=== PATIENT | male | born 1980 | race Caucasian/White ===

== ENCOUNTER 2021-09-08 09:04 | Emergency (ER) | payer OTHER, SELFPAY ==
[2021-09-08 09:06] VITALS: BP 129/81; PULSE 93; RESP 20; TEMP 37.4; O2SAT 97; BMI 27.3
--- NOTE | 2021-09-08 09:33 | EX.ED.DYSGE1 ---
HPI History of Present Illness Chief Complaint: Fever Informant: patient Onset/Context/Timing Onset: Days Context: Gradual Onset Current Severity: Mild Maximum Severity: Moderate Narrative Narrative: Patient presents due to concern for difficult to control fever. He developed symptoms of Covid 7 days ago and tested positive for days ago. He reports minimal cough and respiratory symptoms. He does complain of body aches. He developed diarrhea this morning. He reports taking something for fever every 4 hours but in spite of that his temperature this morning was 103. He did take ibuprofen prior to arrival and here his temperature is 99.3. Patient states overall he feels better now that his fever is controlled. He is not currently on steroids and was not offered monoclonal antibody treatment by his testing center. [facility] Medical History no medical history no medical history Allergy/AdvReac Type Severity Reaction Status Date / Time No Known Allergies Allergy Verified 09/08/21 09:06 Social History (Updated 09/08/21 @ 09:[address] Kylah Bejarano MD) Smoking Status: Never smoker ROS ROS ED Constitutional Constitutional ED: Reports fever(s); Denies chills Eyes Eyes: Denies change in vision ENT ENT ED: Denies sore throat Cardiovascular Cardiovascular: Denies chest pain Respiratory/Chest Respiratory/Chest: Reports cough; Denies dyspnea Gastrointestinal Gastrointestinal: Reports diarrhea and nausea; Denies abdominal pain or vomiting Genitourinary Genitourinary ED: Denies dysuria Musculoskeletal Musculoskeletal: Reports myalgias; Denies back pain Integumentary Denies rash Neurologic Neurologic: Denies headache(s) or weakness Allergic/Immunologic Allergic/Immunologic ED: Denies urticaria EXAM Physical Exam Const Vital Signs: 09/08/21 09:06 Temperature 99.3 F H Temperature Source Oral Pulse Rate 93 Respiratory Rate 20 H Blood Pressure 129/81 H Blood Pressure Mean 97 Pulse Ox 97 Oxygen Delivery Method Room Air Positive well nourished and well developed General Appearance ED: well developed Eyes PERRL and EOMs intact bilaterally Neck supple Chest Wall inspection of chest normal and palpation of chest normal Resp normal respiratory effort and clear to auscultation bilaterally Cardio regular rate and regular rhythm GI normal to inspection, nondistended, normoactive bowel sounds and non-tender Palpation: soft Extremity normal to inspection Neuro oriented x3 Sensorium / Orientation: alert Psych mental status grossly normal Skin no rashes or lesions noted MDM MDM MDM Narrative Medical decision making narrative: At this time patient has no significant respiratory symptoms. I do not feel x-ray will change our treatment. Patient does qualify for monoclonal antibody treatment. We discussed this and I will make the referral for him. We discussed appropriate fever control including alternating Tylenol and ibuprofen every 3 hours. Discharge Plan Triage Chief Complaint: Fever ED Provider: Kylah Bejarano Dx/Rx/DC Orders Clinical Impression: COVID-19 Instructions: Coronavirus Disease 2019 (COVID-19): Overview, Coronavirus Disease 2019 (COVID-19): Caring for Yourself or Others, ED Fever Control (Adult) Other Ambulatory Orders: COVID Outpatient Monoclonal Antibody Referral (Routine) Timeframe: 1 Day Facility: [facility] - Location: [facility] Ordered By: Dr. Kylah Bejarano Primary Care Provider: Care Physician,No Primary Referrals: Diana Qureshi MD [STAFF PHYSICIAN] - 1-2 Weeks Care Physician,No Primary [Primary Care Provider] - Disposition Disposition: Home, Self Care
== END 2021-09-08 10:20 | disposition home or self-care (01) ==
LOC: ED 09:57
PROVIDERS: Emergency Provider Emergency Medicine; PCP Family Medicine
DX: U07.1 COVID-19 (principal); R19.7 Diarrhea, unspecified
CPT/HCPCS: 99282

== ENCOUNTER 2021-09-10 20:17 | Emergency (ER) | payer OTHER, SELFPAY ==
[2021-09-10 20:17] VITALS: BP 110/66; PULSE 97; RESP 28; TEMP 38.8; O2SAT 91; BMI 27.0
--- NOTE | 2021-09-10 20:25 | EKG12_ITS ---
Test Reason : SOB Blood Pressure : / mmHG Vent. Rate : 089 BPM Atrial Rate : 089 BPM P-R Int : 146 ms QRS Dur : 080 ms QT Int : 356 ms P-R-T Axes : 054 061 023 degrees QTc Int : 433 ms Normal sinus rhythm Nonspecific ST abnormality Abnormal ECG Confirmed by TAMIA PRIEST ([id number]), medical transcription editor JASPREET HENDERSON ([id number]) on 09/11/2021 11:11:20 AM Referred By: AUSTIN Confirmed By:TAMIA PRIEST
--- NOTE | 2021-09-10 20:41 | CT_ITS ---
STUDY: CTA CHEST REASON FOR EXAM: Male, 41 years old. Chest pain RADIATION DOSAGE (If Supplied By Facility): CTDIvol = ( 15.52 ) mGy, DLP = ( 520.22 ) mGycm TECHNIQUE: The examination was performed with the intravenous administration of IV 100mL Isovue-370. Post-processing of the angiographic images was performed, with multiplanar reformation and 3D reconstruction. Individualized dose optimization techniques were used for this CT. COMPARISON: None. FINDINGS: CTA: PULMONARY ARTERIES: There is normal configuration and contrast opacification of pulmonary outflow tract, main pulmonary arteries, segmental and intersegmental pulmonary arteries bilaterally without evidence of intraluminal filling defects. AORTIC ARCH: The aortic arch and descending aorta have normal configuration. No evidence of dissection or aneurysmal dilatation. HEART: Cardiac contour is normal. No evidence pericardial effusion. CT CHEST: LUNGS: [Extensive diffuse interstitial and hazy parenchymal infiltrate in the periphery of the lungs greatest at the lung bases however extending bilaterally to the lung apices. No effusion.. No mass. No consolidation. PLEURAL SPACES: Unremarkable, no effusion or pneumothorax.. MEDIASTINUM AND LYMPH NODES: Mildly prominent lymph nodes are present, largest in the RIGHT hilum measures approximately 2.0 x 1.8 cm in size. Pretracheal node measures approximately 1.4 x 1.1 cm.. BONES: Unremarkable ABDOMEN: Within normal limits. Other: None IMPRESSIONS: 1. No CTA evidence of pulmonary embolism. 2. No CTA evidence of aortic aneurysm or dissection 3. Normal CT appearance of the heart and pericardium. 4. Extensive bilateral multilobar infiltrate/pneumonia. Pattern is frequently seen in the setting of COVID pneumonia and atypical viral pneumonias. No effusion. Mild reactive adenopathy in the mediastinum and RIGHT hilar region. Electronically Signed: Chidi Seals MD at 21:58 EST Tel , Service support , CT/CTA Chest W/WO Contrast
--- NOTE | 2021-09-10 20:42 | ED.VIS.DYS ---
HPI History of Present Illness Chief Complaint: Shortness of Breath Narrative Narrative: 41-year-old male presenting with Covid symptoms on day 9. He states he currently has continued fevers and shortness of breath. He also admits to some retrosternal chest pain. Patient does have body aches and chills. Patient states his lowest pulse ox at home has been 89. Here he ambulated from the front to his room and maintain a sat of 90. He states he has nausea but is not vomiting. He complains of some diarrhea. He does have decreased p.o. intake. He states he gets up to walk a couple of times a day. He was not vaccinated. PFSH PFSH Home Medications NK 09/08/21 [History Last Taken Unknown] benzonatate 100 mg PO TID PRN #20 cap 09/10/21 [Rx Last Taken Unknown] ondansetron 4 mg PO Q8H PRN PRN #20 tab 09/10/21 [Rx Last Taken Unknown] Allergy/AdvReac Type Severity Reaction Status Date / Time No Known Allergies Allergy Verified 09/08/21 09:06 Social History Smoking Status: Never smoker ROS ROS ED Constitutional Constitutional ED: Reports chills and fever(s) Eyes Eyes: Denies blurry vision or diplopia ENT ENT ED: Denies rhinorrhea or sore throat Cardiovascular Cardiovascular: Reports chest pain Respiratory/Chest Respiratory/Chest: Reports cough, dyspnea and dyspnea on exertion Gastrointestinal Gastrointestinal: Reports diarrhea and nausea; Denies abdominal pain Genitourinary Genitourinary ED: Denies dysuria or hematuria Musculoskeletal Musculoskeletal: Reports myalgias; Denies arthralgias or neck pain Integumentary Denies Abrasions or rash Neurologic Neurologic: Reports headache(s); Denies paresthesias EXAM Physical Exam Const Vital Signs: 09/10/21 20:17 09/10/21 20:43 09/10/21 21:16 Temperature 101.8 F H 100.9 F H Temperature Source Oral Oral Pulse Rate 97 89 Respiratory Rate 28 H 26 H Respiratory Effort Short of Breath Blood Pressure 110/66 105/62 Blood Pressure Mean 80 76 Pulse Ox 91 94 Oxygen Delivery Method Room Air Room Air Room Air 09/10/21 21:38 09/10/21 22:16 Temperature Temperature Source Pulse Rate 87 82 Respiratory Rate 20 H 18 Respiratory Effort Blood Pressure 92/45 L 108/62 Blood Pressure Mean 60 77 Pulse Ox 94 93 Oxygen Delivery Method Room Air Room Air Positive well nourished General Appearance ED: NAD; Negative for pallor HEENT Reports dry mucous membranes atraumatic Mouth ED: Yes dry mucous membranes Mouth: dry mucous membranes Eyes PERRL and EOMs intact bilaterally Resp normal respiratory effort Auscultation: Negative for wheezes Cardio regular rate and regular rhythm GI non-tender and non-distended Palpation: soft Neuro oriented x3 and CN's II-XII intact bilaterally Sensorium / Orientation: alert Motor Exam: strength 5/5 throughout Psych mental status grossly normal Thought Process: normal thought process Skin General Skin Exam: Negative for jaundice or pallor Rashes: no rashes MDM MDM MDM Narrative Medical decision making narrative: Patient continued to have fevers and shortness of breath as well as some chest pain . His EKG on my interpretation showed a sinus rhythm with ventricular enlargement without sign of ischemic change. Chest x-ray my interpretation is bilateral pulmonary infiltrates consistent with COVID-19. Radiologist agree. CBC shows no leukocytosis and hemoglobin hematocrit are stable. Patient is lymphopenic. Renal function electrolytes are normal. Troponin is negative patient has a slight bump in his bilirubin at 1.4 his AST is 41. I did obtain a CTA of the chest which does show COVID-19 pneumonitis however there are no PEs or dissection visible. The patient was not hypoxic on ambulation and only madonna 91. He does come immediately back up to 93-94. While I was discussing his results with him he was 95% on room air. His respiratory rate is 18. Given this I do not believe he needs to be hospitalized and he does not qualify for home oxygen. Patient already declined the monoclonal antibodies. I will provide him with [facility] for home. He is to continue to monitor his oxygen levels and return for any new or concerning symptoms. Impression: 1. COVID-19 pneumonitis 2. Chest pain Lab Data Labs: Laboratory Results - last 24 hr 09/10/21 09/10/21 20:51 20:51 WBC 5.6 RBC 5.14 Hgb 14.8 Hct 42.9 MCV 83.5 MCH 28.8 MCHC 34.5 RDW Std Deviation 36.6 RDW Coeff of Khadijah 12.0 Plt Count 142 L MPV 10.4 Immature Gran % (Auto) 1.100 H Neut % (Auto) 78.8 H Lymph % (Auto) 11.9 L Monroe % (Auto) 7.8 Eos % (Auto) 0.0 Baso % (Auto) 0.4 Absolute Neuts (auto) 4.4 Absolute Lymphs (auto) 0.67 L Nucleated RBC % 0 Sodium 133 L Potassium 3.6 Chloride 100 Carbon Dioxide 26.0 Anion Gap 7 BUN 16 Creatinine 1.19 Estim Creat Clear Calc 97.64 Est GFR (MDRD) Af Amer 87 Est GFR (MDRD) Non-Af 72 BUN/Creatinine Ratio 13.4 Glucose 128 H Calcium 7.8 L Total Bilirubin 1.40 H AST 41 H ALT 34 Alkaline Phosphatase 53 Troponin I High Sens 10 Total Protein 6.7 Albumin 3.0 L Globulin 3.7 Albumin/Globulin Ratio 0.8 L Radiography Diagnostic Testing: Clinical Impression(s) from Imaging Studies Chest CTA 09/10/21 20:41 Chest X-Ray 09/10/21 20:55 IMPRESSION: Findings consistent with bilateral peripheral multifocal infiltrates with underlying viral etiology not excluded, clinically correlate. Electronically Signed: Lucian Sarmiento DO at 21:20 EST , Service support , Discharge Plan Triage Chief Complaint: Shortness of Breath ED Provider: Waqar York Dx/Rx/DC Orders Instructions: Coronavirus Disease 2019 (COVID-19): Caring for Yourself or Others Prescriptions: New ondansetron 4 mg tablet,disintegrating 4 mg PO Q8H PRN PRN (Reason: Nausea) Qty: 20 RF: 0 benzonatate 100 mg capsule 100 mg PO TID PRN (Reason: cough) Qty: 20 RF: 0 No Action NK RF: 0 Primary Care Provider: Care Physician,No Primary Referrals: Dee Hussein MD [STAFF PHYSICIAN] - 3-5 Days Care Physician,No Primary [Primary Care Provider] - Disposition Disposition: Home, Self Care
[2021-09-10 20:43] VITALS: O2SAT 94
--- NOTE | 2021-09-10 20:55 | RAD_ITS ---
STUDY: X-RAY CHEST REASON FOR EXAM: Male, 41 years old. cough TECHNIQUE: Single AP portable view of the chest. COMPARISON: None. FINDINGS: Bilateral peripheral patchy airspace disease extending to the lung bases is present. There is no demonstrated pleural abnormality. Normal size heart. Normal mediastinum and lucie. Normal visualized pulmonary arteries. Normal visualized aortic arch and descending thoracic aorta. Normal visualized thoracic spine. Normal visualized ribs, clavicles, and shoulders. There is no demonstrated abnormality of the visualized soft tissue structures of the upper abdomen. RAD/Chest 1 View (Portable) IMPRESSION: Findings consistent with bilateral peripheral multifocal infiltrates with underlying viral etiology not excluded, clinically correlate. Electronically Signed: Lucian Sarmiento DO at 21:20 EST , Service support ,
[2021-09-10 21:03] LABS: Absolute Lymphocyte Count 0.67 X10^3/uL (0.83-4.51); Absolute Neutrophil Count 4.4 X10^3/uL (2.0-7.7); Basophil# 0.02 X10^3/uL; Basophil% 0.4 % (0-1); Hematocrit 42.9 % (40-54); Hemoglobin 14.8 g/dL (13.0-16.5); Lymphocyte # 0.67 X10^3/ul (0.83-4.51); Lymphocyte % 11.9 % (19-41); Mean Corp Hgb Conc 34.5 g/dL (32-36); Mean Corpuscular Hgb 28.8 pg (27.0-32.0); Mean Corpuscular Volume 83.5 fL (80-94); Mean Platelet Vol. 10.4 fl (6.2-12.0); Monocyte# 0.44 X10^3/uL; Monocyte% 7.8 % (0-10); NRBC Flagged by Analyzer 0 % (0-5); Neutrophil # 4.44 X10^3/uL (2.7-7.7); Neutrophil % 78.8 % (47-70); Platelet Count 142 K/mm3 (150-450); RBC Distribution Width SD 36.6 fl (35.1-43.9); Red Blood Count 5.14 M/mm3 (4.6-6.2); White Blood Count 5.6 K/mm3 (4.4-11.0)
[2021-09-10] MEDS: Ondansetron 4 MG/2 ML Vial IV (21:09)
[2021-09-10] MEDS: Ketorolac 15 MG/ML Vial IV (21:10)
[2021-09-10] MEDS: Morphine 4 MG/ML Syringe IV (21:11)
[2021-09-10 21:16] VITALS: BP 105/62; PULSE 89; RESP 26; TEMP 38.3; O2SAT 94
[2021-09-10 21:22] LABS: ALB/GLOB Ratio 0.8 RATIO (0.9-2.4); AST(SGOT) 41 U/L (15-37); Alanine Aminotransfer ALT/SGPT 34 U/L (16-61); Alkaline Phosphatase 53 U/L (45-117); Anion Gap 7 (5-15); BUN 16 mg/dL (7-18); BUN/Creat Ratio 13.4 RATIO (10-20); Calcium,Total 7.8 mg/dL (8.5-10.1); Chloride 100 mmol/L (98-107); Creatinine, Serum 1.19 mg/dL (0.70-1.30); EST Glomerular Filtration Rate 72 mL/min (>60); Est Glom Filt Rate - Afr Amer 87 mL/min (>60); Estimated Creatinine Clearance 97.64 ml/min; Globulin 3.7 g/dL (2.2-4.2); Glucose 128 mg/dL (74-106); Potassium 3.6 mmol/L (3.5-5.1); Protein, Total 6.7 g/dL (6.4-8.2); Sodium Level 133 mmol/L (136-145); Troponin-I HS 10 pg/mL (3.0-78.0)
[2021-09-10 21:38] VITALS: BP 92/45; PULSE 87; RESP 20; O2SAT 94
[2021-09-10 22:16] VITALS: BP 108/62; PULSE 82; RESP 18; O2SAT 93
[2021-09-10 23:25] VITALS: BP 106/59; PULSE 83; RESP 16; O2SAT 97
[2021-09-10] MEDS: Benzonatate 100 MG Capsule PO (23:28)
[2021-09-10] MEDS: Albuterol Sulfate 8 gm Inhaler (60 puffs) 1 PUFF INHALATION (23:31)
== END 2021-09-10 23:31 | disposition home or self-care (01) ==
PROVIDERS: Emergency Provider Student in an Organized Health Care Education/Training Program
DX: U07.1 COVID-19 (principal); J12.82 Pneumonia due to coronavirus disease 2019; R19.7 Diarrhea, unspecified
CPT/HCPCS: 36415; 71045; 71275; 80053; 84484; 85025; 93005; 94664; 96361; 96374; 96375; 99283; J7040; Q9967; A4216; J2405

== ENCOUNTER 2021-09-11 12:07 | Outpatient (CLI) | payer OTHER, SELFPAY ==
[2021-09-11] MEDS: 0.9% Saline Lock 10 ML Syringe IV (12:33)
[2021-09-11 12:34] VITALS: BP 106/65; PULSE 78; RESP 18; TEMP 36.6; O2SAT 95; BMI 27.5
[2021-09-11 13:20] VITALS: BP 105/53; PULSE 69; RESP 16; TEMP 36.6; O2SAT 96
[2021-09-11 14:01] VITALS: BP 102/77; PULSE 77; RESP 16; TEMP 36.6; O2SAT 96
== END 2021-09-11 14:20 | disposition home or self-care (01) ==
LOC: MS3OUT 12:07 → MS3 12:08
PROVIDERS: Referring Provider Nurse Practitioner Adult Health; Visit Provider Nurse Practitioner Adult Health
DX: Z23 Encounter for immunization (principal); U07.1 COVID-19
CPT/HCPCS: J7050; M0245; Q0245; A4216

== ENCOUNTER → 2023-12-16 | Outpatient (CLI) | payer BC, SELFPAY ==
--- NOTE | 2023-12-16 15:45 | RAD_ITS ---
INDICATION: IBS EXAMINATION/TECHNIQUE: X-RAY - XR Abdomen W/ Decub and/or Erect Views COMPARISON: None FINDINGS: BOWEL GAS PATTERN: Non-obstructive. No bowel or stomach distention. FREE AIR: Not assessed on a single supine view. ORGANOMEGALY: Not seen. CALCIFICATIONS: No abnormal calcifications observed. LOWER CHEST: No acute pathology. BONES AND SOFT TISSUES: No acute pathology. RAD/Abd Inc Decub and/or Erect IMPRESSION: Non-obstructive bowel gas pattern. Electronically Signed: Teto Niño MD at 16:32 EST ,
[2023-12-16 18:00] LABS: Absolute Lymphocyte Count 1.95 X10^3/uL (0.83-4.51); Absolute Neutrophil Count 6.5 X10^3/uL (2.0-7.7); Basophil# 0.08 X10^3/uL; Basophil% 0.8 % (0-1); Eosinophil# 0.57 X10^3/uL; Eosinophils% 5.7 % (0-5); Hematocrit 47.2 % (40-54); Hemoglobin 15.4 g/dL (13.0-16.5); Lymphocyte # 1.95 X10^3/ul (0.83-4.51); Lymphocyte % 19.5 % (19-41); Mean Corp Hgb Conc 32.6 g/dL (32-36); Mean Corpuscular Volume 85.8 fL (80-94); Mean Platelet Vol. 10.7 fl (6.2-12.0); Monocyte# 0.86 X10^3/uL; Monocyte% 8.6 % (0-10); NRBC Flagged by Analyzer 0 % (0-5); Neutrophil # 6.52 X10^3/uL (2.7-7.7); Platelet Count 312 K/mm3 (150-450); RBC Distribution Width SD 37.7 fl (35.1-43.9)
[2023-12-16 18:13] LABS: Erythrocyte Sedimentation Rate 8 mm/hr (0-20)
--- OUTSIDE RECORDS SUMMARY | 2023-12-16 18:21 | XMS RPT_ITS | CCD ---
Author Name Unknown Address [address] [place] [address] Organization [facility] Care Team Providers Care Crm System Administrator Name Role Phone Diana Qureshi Unavailable Dr. Harper Saleh Attending Nicole Saleh, Dr. Harper Yeager Referring Dr. Diana Miller Primary Care Unavail able Dr. Harper Saleh Admitting Nicole martinez Medications Completed/Discontinued Medications Medication Drug Class(es) Dates Sig (Normalized) Sig (Original) No Reported Medications (3 sources) No Reported Medi cations Quantity: 0 Refills: 0 Ordered: 20-Apr-2022 DO Active Problems Problem Classification Problem Date Documented Da te Episodic/Chronic Abdominal hernia (7 sources) Inguinal hernia; Translations: [Inguinal hernia, without mention of obstruction or gangrene, unilateral or unspecified (not specified as recurrent)] Onset: 05-03-2022 Episodic Other and unspecified benign neoplasm (1 source) Benign lipomatous neoplasm of spermatic cord; Translations: [Benign lipomatous neoplasm of spermatic cord] Onset: 05-03-2022 Episodic Results Test Name Value Interpretation Reference Range Facil ity Vital Signs Date Time Vital Sign Value Performing Clinician Deborah obregon 05-15-2022 15:31-0400 Body height 190.5 cm Diana Qureshi Work Phone: [facility] Work Phone: 05-15-2022 15:31-0400 Body mass index (BMI) [Ratio] 28.06 kg/m2 Diana Qureshi Work Phone: [facility] Work Phone: 05-15-2022 15:31-0400 Body surface area Derived from formula 2.3 m2 Diana Vasquesiff Work Phone: [facility] Work Phone: 05-15-2022 15:31-0400 Body weight 101.83 kg Diana S Jolliff Work Phone: [facility] Work Phone: 05-15-2022 15:31-0400 Diastolic blood pressure 92 mm[Hg] Diana S Jolliff Work Phone: [facility] Work Phone: 05-15-2022 15:31-0400 Heart rate 80 /min Diana S Jolliff Work Phone: [facility] Work Phone: 05-15-2022 15:31-0400 Systolic blood pressure 134 mm[Hg] Diana S Jolliff Work Phone: [facility] Work Phone: 04-20-2022 15:29-0400 Body height 190.5 cm Diana S Jolliff Work Phone: [facility] Work Phone: 04-20-2022 15:29-0400 Body mass index (BMI) [Ratio] 28.06 kg/m2 Diana S Jolliff Work Phone: [facility] Work Phone: 04-20-2022 15:29-0400 Body surface area Derived from formula 2.3 m2 Diana S Jolliff Work Phone: [facility] Work Phone: 04-20-2022 15:29-0400 Body weight 101.83 kg Diana S Jolliff Work Phone: [facility] Work Phone: 04-20-2022 15:29-0400 Diastolic blood pressure 94 mm[Hg] Diana S Jolliff Work Phone: [facility] Work Phone: 04-20-2022 15:29-0400 Heart rate 80 /min Diana Qureshi Work Phone: [facility] Work Phone: 04-20-2022 15:29-0400 Systolic blood pressure 132 mm[Hg] Diaan Vasquesiff Work Phone: [facility] Work Phone: Encounters Encounter Date Encounter Type Care Provider Facility Start: 05-15-2022 Postop follow up vis it related to original px Diana Vasquesiff Work Phone: [facility] Work Phone: Start: 05-03-2022 End: 05-03-[address] Harper Saleh Facility:[id number] Start: 05-03-2022 [facility], Provider: Harper Saleh, Status: Pen, Time: 9:30 AM Diana Qureshi Work Phone: [facility] Work Phone: Start: 05-03-2022 Chart Update Diana Vasquesiff Work Phone: [facility] Work Phone: Start: 04-20-2022 Office outpatient ne w 45 minutes Diana Qureshi Work Phone: [facility] Work Phone: Procedures Date Procedure Procedure Detail Performing Clinician Start: 05-03-2022 Repair of inguinal hernia Diana Vasquesiff Work Phone: Payers Date Payer Category Payer Unknown [id number] Unknown [facility] Unknown [id number] Social History Date Type Detail Facility Non-smoker Non-smoker [facility] Work Phone: Clinical Note 05-03-2022 Note Date & Type Note Facility 05-03-2022 Note PROCEDURE DETAILS Preoperative Diagnosis: Unil inguinal hernia, w/o obst or gangr, not spcf as recur, K40.90 Postoperative Diagnosis: Unil inguinal hernia, w/o obst or gangr, not spcf as recur, K40.90 Surgeon: Harper Saleh Resident/Fellow/Other Guidance Secretary: None of these were associated with this case Procedure: 1. L INGUINAL HERNIA REPAIR, WITH MESH Anesthesia: Memo Lobo Estimated Blood Loss: minimal Findings: indirect IH lipoma Specimens(s) Collected: yes, hernia sac and lipoma Complications: none Operative Report: Patient was seen for symptomatic left inguinal hernia. After discussing the alternatives of observation versus repair, he wished to have it repaired. We discussed the alternatives of laparoscopic versus an open anterior approach. After discussion, he opted for an open anterior repair. We discussed the procedure risks and potential complications including but not limited to bleeding, infection, reaction to the anesthetic, stroke, PA and/or . We also discussed the fact mesh would be placed and there was a risk of hernia recurrence despite the mesh or mesh infection necessitating removal. We discussed the risk of postoperative pain syndromes, contralateral hernia formation or testicular loss. All questions were answered and he asked us to proceed. Patient was brought to the operating room and placed supine upon the operating room table. Operative huddle was done. After the uneventful administration of an LMA anesthetic, the abdomen was prepped and draped in usual sterile fashion. Timeout was done. SCD devices were in place. Left inguinal region was locally anesthetized with a ydcl-[id number]-[id number] solution of 0.25% Marcaine and 1% lidocaine. Inguinal incision was made and carried through the skin subcutaneous tissues and Sanjuana's fascia. A subfascial injection was also done. The external oblique was divided along the course of its fibers to the internal inguinal ring. Superior and inferior leaflets were raised and the cord mobilized at the pubic tubercle and placed on a Dakota drain. The cremasteric fibers were split and lipoma became apparent which was bilobed as well as a hernia sac. All were dissected back to the internal inguinal ring. The lipomas were clamped divided and tied with 3-0 Vicryl ties. The hernia sac was open no contents were noted the sac was twisted and a high ligation done using 2 sutures of 3-0 Vicryl. After checking for hemostasis these were allowed to retract into the retroperitoneum. A left-sided ProGrip mesh was then wrapped around the cord and sutured to the pubic tubercle using 2-0 Vicryl. Fingertip was admitted. The external oblique was closed with a running suture of 2-0 Vicryl. Subcutaneous tissues and Sanjuana's fascia were approximated using interrupted sutures of 3-0 Vicryl. The skin was closed with a running subcuticular stitch of 4-0 Monocryl. Dermabond Steri-Strips and sterile dressings were applied. Patient tolerated the procedure well and was sent to the recovery area in stable condition. All needle and sponge counts were correct. Attestation: Note Completion: Attending AttestationI performed the procedure without a resident Electronic Signatures: Harper Saleh) (Signed 03-May-2022 14:02) Authored: Post-Operative Note, Chart Review, Note Completion Last Updated: 03-May-2022 14:02 by Harper Saleh) [facility] Clinical Note 05-03-2022 Note Date & Type Note Facility 05-03-2022 Note History & Physical R eviewed: I have reviewed the History and Physical dated: 20-Apr-2022 History and Physical reviewed and relevant findings noted. Patient examined to review pertinent physical findings.: No significant changes Home Medications Reviewed: no changes noted Allergies Reviewed: no changes noted ERAS (Enhanced Recovery After Surgery): ERAS Patient: no Consent: COVID-19 Consent: COVID-19 Risk ConsentSurgeon has reviewed spears risks related to the risk of frankie COVID-19 and if they contract COVID-19 what the risks are. Electronic Signatures: Harper Saleh) (Signed 03-May-2022 12:22) Authored: History & Physical Reviewed, ERAS, Consent, Note Completion Last Updated: 03-May-2022 12:22 by Harper Saleh) [facility] History of Present illness Narrative 04-01-2022 Note Date & Type Note Facility 04-01-2022 History of Present illness Narrative Patient is seen for evaluation of left groin pain and bulge. He states approximately 3 weeks ago he felt something pop in his left groin and had discomfort. Over the last 5 days he has developed a bulge. It is reducible. [facility] Work Phone: History of Present illness Narrative Note Date & Type Note Facility History of Present illness Narrative Patient is seen in postop follow-up status post inguinal hernia repair. He states the bruising has essentially resolved and he still has some minor swelling. He states he really took no pain medicine. He is still limiting his activity. He states it feels better now than it did preop [facility] Work Phone: Chief Complaint Self ref left groin pain. Pt states he has a bulge in his groin. Bowels moving good.Post op #1 LIH. Denies fever, chills and nausea. Denies drainage or redness. Family History No Family History Records FoundUnknown Family Member Name Dates Details Family history of diabetes m ellitus: Mother, Father(V18.0, Z83.3) Status:Active Unknown Family Member Name Dates Details Family history of diabetes m ellitus: Mother, Father(V18.0, Z83.3) Status:Active Unknown Family Member Name Dates Details Family history of diabetes m ellitus: Mother, Father(V18.0, Z83.3) Status:Active Summary Purpose Advance Directives No Advanced Directives Records FoundNo Advanced Directives Records FoundNo Advanced Directives Records Found Additional Source Comments (unrecognized sect ion and content) No Status Records FoundNo Status Records FoundNo Status Records Found INFORMATION SOURCE (unrecogn ized section and content) DATE CREATED AUTHOR AUTHOR'S ORGANIZ ATION 05/18/2022 [employer] DATE CREATED AUTHOR AUTHOR'S ORGANIZ ATION 01/20/2023 [facility] FOR RECORDS PERTAINING TO PATIENTS WHO ARE OR HAVE BEEN ENROLLED IN A CHEMICAL DEPENDENCY/SUBSTANCEABUSE PROGRAM, SOME INFORMATION MAY BE OMITTED. This clinical summary was aggregated from multiple sources. Caution should be exercised in using it in the provision of clinical care. This summary normalizes information from multiple sources, and as a consequence, information in this document may materially change the coding, format and clinical context of patient data. In addition, data may be omitted in some cases. CLINICAL DECISIONS SHOULD BE BASED ON THE PRIMARY CLINICAL RECORDS. [facility] [employer] [facility]. provides no warranty or guarantee of the accuracy or completeness of information in this document.
[2023-12-16 18:28] LABS: ALB/GLOB Ratio 1.2 RATIO (0.9-2.4); AST(SGOT) 19 U/L (15-37); Alanine Aminotransfer ALT/SGPT 36 U/L (16-61); Albumin, Serum 3.9 g/dL (3.2-5.0); Alkaline Phosphatase 76 U/L (45-117); Anion Gap 2 (5-15); BUN 21 mg/dL (7-18); BUN/Creat Ratio 18.8 RATIO (10-20); Calcium,Total 9.2 mg/dL (8.5-10.1); Chloride 107 mmol/L (98-107); Creatinine, Serum 1.12 mg/dL (0.70-1.30); EST Glomerular Filtration Rate 76 mL/min (>60); Est Glom Filt Rate - Afr Amer 92 mL/min (>60); Globulin 3.3 g/dL (2.2-4.2); Glucose 99 mg/dL (74-106); Potassium 4.2 mmol/L (3.5-5.1); Protein, Total 7.2 g/dL (6.4-8.2); Sodium Level 139 mmol/L (136-145); Thyroid Stim Hormone (TSH) 0.66 uIU/mL (0.358-3.74)
[2023-12-18 16:10] LABS: Deamidated Gliadin IgA 11 units (0-19); Deamidated Gliadin IgG 5 units (0-19); Endomysial Antibody IgA Negative (Negative); Immunoglobulin A 193 mg/dL (90-386); t-Transglutaminase IgA <2 U/mL (0-3)
== END | disposition home or self-care (01) ==
PROVIDERS: PCP Family Medicine; Referring Provider Family Medicine; Visit Provider Family Medicine
DX: K58.9 Irritable bowel syndrome, unspecified (principal)
CPT/HCPCS: 36415; 74019; 80053; 82784; 83516; 84443; 85025; 85652; 86255

== ENCOUNTER → 2023-12-18 | Outpatient (CLI) | payer BC, SELFPAY ==
--- OUTSIDE RECORDS SUMMARY | 2023-12-18 19:36 | XMS RPT_ITS | CCD ---
Author Name Unknown Address [address] [place] [address] Organization [facility] Care Team Providers Care Clinical Sciences Professor Name Role Phone Diana Qureshi Unavailable Dr. [...] height 190.5 cm Diana Qureshi Work Phone: [facility] Work Phone: 05-15-2022 15:31-0400 Body mass index (BMI) [Ratio] 28.06 kg/m2 Diana Qureshi Work Phone: [facility] Work Phone: 05-15-2022 15:31-0400 Body surface area Derived from formula 2.3 m2 Diana Vasquesiff Work Phone: [facility] Work Phone: 05-15-2022 15:31-0400 Body weight 101.83 kg Diana S Jolliff Work Phone: [facility] Work Phone: 05-15-2022 15:31-0400 Diastolic blood pressure 92 mm[Hg] Diana S Jolliff Work Phone: [facility] Work Phone: 05-15-2022 15:31-0400 Heart rate 80 /min Diana S Jolliff Work Phone: [facility] Work Phone: 05-15-2022 15:31-0400 Systolic blood pressure 134 mm[Hg] Diana S Jolliff Work Phone: [facility] Work Phone: 04-20-2022 15:29-0400 Body height 190.5 cm Diana S Jolliff Work Phone: [facility] Work Phone: 04-20-2022 15:29-0400 Body mass index (BMI) [Ratio] 28.06 kg/m2 Diana S Jolliff Work Phone: [facility] Work Phone: 04-20-2022 15:29-0400 Body surface area Derived from formula 2.3 m2 Diana S Jolliff Work Phone: [facility] Work Phone: 04-20-2022 15:29-0400 Body weight 101.83 kg Diana S Jolliff Work Phone: [facility] Work Phone: 04-20-2022 15:29-0400 Diastolic blood pressure 94 mm[Hg] Diana S Jolliff Work Phone: [facility] Work Phone: 04-20-2022 15:29-0400 Heart rate 80 /min Diana Qureshi Work Phone: [facility] Work Phone: 04-20-2022 15:29-0400 Systolic blood pressure 132 mm[Hg] Diana Vasquesiff Work Phone: [facility] Work Phone: Encounters Encounter Date Encounter Type Care Provider Facility Start: 05-15-2022 Postop follow up vis it related to original px Diana Vasquesiff Work Phone: [facility] Work Phone: Start: 05-03-2022 End: 05-03-[address] Harper Saleh Facility:[id number] Start: 05-03-2022 [facility], Provider: Harper Saleh, Status: Pen, Time: 9:30 AM Diana Qureshi Work Phone: [facility] Work Phone: Start: 05-03-2022 Chart Update Diana Vasquesiff Work Phone: [facility] Work Phone: Start: 04-20-2022 Office outpatient ne w 45 minutes Diana Qureshi Work Phone: [facility] Work Phone: Procedures Date Procedure Procedure Detail Performing Clinician Start: 05-03-2022 Repair of inguinal hernia Diana Vasquesiff Work Phone: Payers Date Payer Category Payer Unknown [id number] Unknown [facility] Unknown [id number] Social History Date Type Detail Facility Non-smoker Non-smoker [facility] Work Phone: Clinical Note 05-03-2022 Note Date & Type Note Facility 05-03-2022 Note PROCEDURE DETAILS Preoperative Diagnosis: Unil inguinal hernia, w/o obst or gangr, not spcf as recur, K40.90 Postoperative Diagnosis: Unil inguinal hernia, w/o obst or gangr, not spcf as recur, K40.90 Surgeon: Harper Saleh Resident/Fellow/Other Sandwich Machine Operator: None of these were associated with this [...] bleeding, infection, reaction to the anesthetic, stroke, [place] and/or . We also discussed the fact [...] inguinal region was locally anesthetized with a joon-pnb-ztis solution of 0.25% Marcaine and 1% lidocaine. [...] Last Updated: 03-May-2022 14:02 by Harper Saleh) [facility] Clinical Note 05-03-2022 Note Date & Type [...] Last Updated: 03-May-2022 12:22 by Harper Saleh) [facility] History of Present illness Narrative 04-01-2022 Note Date & Type Note Facility 04-01-2022 History of Present illness Narrative Patient is seen for evaluation of left groin pain and bulge. He states approximately 3 weeks ago he felt something pop in his left groin and had discomfort. Over the last 5 days he has developed a bulge. It is reducible. -[facility] Work Phone: History of Present illness Narrative [...] feels better now than it did preop [facility] Work Phone: Chief Complaint [...] DATE CREATED AUTHOR AUTHOR'S ORGANIZ ATION 05/18/2022 [employer] DATE CREATED AUTHOR AUTHOR'S ORGANIZ ATION 01/20/2023 [facility] FOR RECORDS PERTAINING TO PATIENTS WHO ARE [...] BE BASED ON THE PRIMARY CLINICAL RECORDS. [facility] [employer] [facility]. provides no warranty or guarantee of the accuracy or completeness of information in this document.
[2023-12-24 21:07] LABS: Pancreatic Elastase, Fecal 228 (>200)
== END | disposition home or self-care (01) ==
LOC: LABSPEC 15:38
PROVIDERS: PCP Family Medicine; Referring Provider Family Medicine; Visit Provider Family Medicine
DX: K58.9 Irritable bowel syndrome, unspecified (principal)
CPT/HCPCS: 82653; 87506

== ENCOUNTER 2024-01-10 18:09 | Inpatient (IN) | payer BC, SELFPAY ==
[2024-01-10 18:10] VITALS: BP 147/85; PULSE 73; RESP 17; TEMP 36.9; O2SAT 100; BMI 27.1
[2024-01-10 19:38] VITALS: BP 112/71; PULSE 75; RESP 14; O2SAT 98
--- NOTE | 2024-01-10 19:43 | ED.RN ---
Pt had near syncopal episode after this RN started IV. Pt laid flat and symptoms resolved. Pt up to restroom.
[2024-01-10 19:50] LABS: Absolute Lymphocyte Count 1.99 X10^3/uL (0.83-4.51); Absolute Neutrophil Count 5.8 X10^3/uL (2.0-7.7); Basophil% 1.1 % (0-1); Eosinophil# 0.43 X10^3/uL; Eosinophils% 4.5 % (0-5); Hematocrit 47.5 % (40-54); Hemoglobin 15.8 g/dL (13.0-16.5); Lymphocyte # 1.99 X10^3/ul (0.83-4.51); Mean Corp Hgb Conc 33.3 g/dL (32-36); Mean Corpuscular Volume 84.2 fL (80-94); Mean Platelet Vol. 10.2 fl (6.2-12.0); Monocyte# 1.08 X10^3/uL; Monocyte% 11.4 % (0-10); NRBC Flagged by Analyzer 0 % (0-5); Neutrophil # 5.84 X10^3/uL (2.7-7.7); Neutrophil % 61.6 % (47-70); Platelet Count 290 K/mm3 (150-450); RBC Distribution Width SD 36.4 fl (35.1-43.9); Red Blood Count 5.64 M/mm3 (4.6-6.2); White Blood Count 9.5 K/mm3 (4.4-11.0)
[2024-01-10 20:10] LABS: ALB/GLOB Ratio 1.2 RATIO (0.9-2.4); AST(SGOT) 20 U/L (15-37); Alanine Aminotransfer ALT/SGPT 34 U/L (16-61); Albumin, Serum 4.1 g/dL (3.2-5.0); Alkaline Phosphatase 90 U/L (45-117); Anion Gap 4 (5-15); BUN 18 mg/dL (7-18); BUN/Creat Ratio 16.4 RATIO (10-20); Calcium,Total 9.6 mg/dL (8.5-10.1); Chloride 107 mmol/L (98-107); EST Glomerular Filtration Rate 77 mL/min (>60); Est Glom Filt Rate - Afr Amer 94 mL/min (>60); Estimated Creatinine Clearance 103.49 ml/min; Globulin 3.4 g/dL (2.2-4.2); Glucose 108 mg/dL (74-106); Potassium 3.8 mmol/L (3.5-5.1); Protein, Total 7.5 g/dL (6.4-8.2); Sodium Level 141 mmol/L (136-145)
--- NOTE | 2024-01-10 20:42 | CT_ITS ---
We are attempting to reach an attending provider to discuss findings. An addendum with communication details will be sent when the communication is complete. STUDY: CT ABDOMEN AND PELVIS WITH CONTRAST REASON FOR EXAM: Male, 43 years old. abd pain RADIATION DOSAGE (If Supplied By Facility): CTDIvol = ( 12.94 ) mGy, DLP = ( 1024.03 ) mGycm TECHNIQUE: Transaxial images were obtained from the dome of the diaphragm to the symphysis pubis without oral contrast. IV 100mL Isovue-300 was administered. Sagittal and coronal images were reconstructed. Individualized dose optimization techniques were used for this CT. COMPARISON: None. FINDINGS: The visualized lung bases are unremarkable. The visualized portions of the heart are within normal limits. Normal liver. Normal gallbladder and extrahepatic biliary system. Normal spleen. Normal pancreas. Normal bilateral adrenal glands. Normal right kidney. Normal left kidney. Normal visualized stomach. Normal small intestine. Unusual appearance to the cecum, ascending colon, and mid transverse colon with a large area of fat attenuation within the lumen of the transverse colon surrounded by wall thickening felt to represent intussusception. No severe dilatation of the distal ileum. No pneumoperitoneum to suggest perforation. The appendix is visualized and appears normal. Normal abdominal aorta. Normal inferior vena cava. Normal retroperitoneum. Normal urinary bladder. Normal abdominal wall. Normal osseous structures. CT/Abdomen/Pelvis W IV Cont ONLY IMPRESSION: Intussusception of the ileocecal valve extending to the mid transverse colon without severe obstruction or perforation. Electronically Signed: Chidi Carvajal MD at 21:46 EDT ,
[2024-01-10 21:00] VITALS: BP 116/72; PULSE 67; RESP 16; O2SAT 99
--- NOTE | 2024-01-10 22:01 | EDS_ITS ---
HPI HPI - GI History of Present Illness Chief Complaint: GI Bleed Narrative Narrative: 43-year-old male with abdominal pain. He states has been ongoing for couple of months. He describes it as intermittent. He states that when he wakes up in the morning is usually pain-free until he has a bowel movement. He then experiences pain throughout the day. He is presenting today as he had some bright red blood in his stool. He states he has seen his PCP for this and has had lab work done. He states he had an x-ray of his abdomen performed as well. Patient has never had a colonoscopy. He is not had any Cologuard testing. He has not had a CT of the abdomen pelvis. He is not having any fevers or chills. He is not on any blood thinners. Patient denies any abdominal surgeries in the past. He has not had any significant weight loss. PFSH PFSH Home Medications benzonatate 100 mg capsule 100 mg PO TID PRN cough #20 caps 09/10/21 [Rx Last Taken Unknown] ondansetron 4 mg disintegrating tablet 4 mg PO Q8H PRN PRN Nausea #20 tabs 09/10/21 [Rx Last Taken Unknown] Allergy/AdvReac Type Severity Reaction Status Date / Time No Known Allergies Allergy Verified 01/10/24 18:12 Surgical History H/O hernia repair Social History Smoking Status: Never smoker ROS [facility] ED Constitutional Constitutional ED: Denies chills, fever(s) or sweats Eyes Eyes: Denies blurry vision or change in vision ENT ENT ED: Denies ear pain or sore throat Cardiovascular Cardiovascular: Denies chest pain, palpitations or racing heartbeat Respiratory/Chest Respiratory/Chest: Denies cough, dyspnea or sputum Gastrointestinal Gastrointestinal: Reports abdominal pain and other Details: Bright red bleeding per rectum ; Denies constipation, diarrhea, nausea or vomiting Genitourinary Genitourinary ED: Denies dysuria, hematuria or urinary frequency Musculoskeletal Musculoskeletal: Denies arthralgias, myalgias or neck pain Integumentary Denies abscess, Abrasions or rash Neurologic Neurologic: Denies headache(s), paresthesias or weakness Psychiatric Psychiatric: Denies anxiety, depression, suicidal ideation or suicidal thoughts Endocrine Endocrinology: Denies polydipsia or polyuria EXAM Physical Exam Const Vital Signs: 01/10/24 18:10 01/10/24 19:38 01/10/24 21:00 Temperature 98.4 F Temperature Source Temporal Pulse Rate 73 75 67 Respiratory Rate 17 14 16 Blood Pressure 147/85 H 112/71 116/72 Blood Pressure Mean 105 84 86 Pulse Ox 100 98 99 Oxygen Delivery Method Room Air Room Air Room Air Positive well nourished General Appearance ED: NAD HEENT Reports moist mucous membranes normocephalic and atraumatic Eyes PERRL and EOMs intact bilaterally Resp normal respiratory effort Cardio regular rate and regular rhythm GI non-tender and non-distended Palpation: soft Neuro CN's II-XII intact bilaterally Sensorium / Orientation: alert Motor Exam: strength 5/5 throughout Psych mental status grossly normal MDM MDM MDM Narrative Medical decision making narrative: Patient presenting with intermittent abdominal pain and now experiencing blood in stool. Differential includes colitis, diverticulitis, dehydration, anemia, malignancy, intussusception. Patient currently not experiencing significant pain. CBC was obtained to assess white blood cell count, hemoglobin,. CMP to assess liver function, renal function, electrolytes.. CBC and CMP ultimately unremarkable with exception of a total bilirubin of 1.7. There was protocol orders put in for the patient on arrival lateral for stool studies which are pending. CT of the abdomen pelvis was performed and shows intussusception of the ileocecal valve extending into the mid transverse colon. General surgery was called. The patient. Patient kept NPO. Dr. Hahn requested a lactic acid be ordered. Patient counseled on findings. Impression: 1. Abdominal pain 2. Intussusception 3. Lower GI bleed Lab Data Attestation: I reviewed the patient's lab results. Labs: Laboratory Results - last 24 hr 01/10/24 19:32 WBC 9.5 RBC 5.64 Hgb 15.8 Hct 47.5 MCV 84.2 MCH 28.0 MCHC 33.3 RDW Std Deviation 36.4 RDW Coeff of Khadijah 12.0 Plt Count 290 MPV 10.2 Immature Gran % (Auto) 0.400 Neut % (Auto) 61.6 Lymph % (Auto) 21.0 Platte % (Auto) 11.4 H Eos % (Auto) 4.5 Baso % (Auto) 1.1 H Absolute Neuts (auto) 5.8 Absolute Lymphs (auto) 1.99 Nucleated RBC % 0 Sodium 141 Potassium 3.8 Chloride 107 Carbon Dioxide 30.0 Anion Gap 4 L BUN 18 Creatinine 1.10 Estim Creat Clear Calc 103.49 Est GFR (MDRD) Af Amer 94 Est GFR (MDRD) Non-Af 77 BUN/Creatinine Ratio 16.4 Glucose 108 H Calcium 9.6 Total Bilirubin 1.70 H AST 20 ALT 34 Alkaline Phosphatase 90 Total Protein 7.5 Albumin 4.1 Globulin 3.4 Albumin/Globulin Ratio 1.2 Radiography Diagnostic Testing: Clinical Impression(s) from Imaging Studies Abdomen/Pelvis CT 01/10/24 20:42 IMPRESSION: Intussusception of the ileocecal valve extending to the mid transverse colon without severe obstruction or perforation. Electronically Signed: Chidi Carvajal MD at 21:46 EDT Reading Location ID and State: [id number] / [employer] Tel , Service support , ADDENDUM: 01/10/244 IMPRESSION: Intussusception of the ileocecal valve extending to the mid transverse colon without severe obstruction or perforation. N.B. : Waqar York DO, confirmed on 01/10/2024 21:57:25 (ET) that the referring physician received the results and does not require a verbal communication. Electronically Signed: Chidi Carvajal MD at 21:46 EDT , Discharge Plan Triage Chief Complaint: GI Bleed ED Provider: Waqar York Dx/Rx/DC Orders Prescriptions: No Action ondansetron 4 mg tablet,disintegrating 4 mg PO Q8H PRN PRN (Reason: Nausea) Qty: 20 0RF benzonatate 100 mg capsule 100 mg PO TID PRN (Reason: cough) Qty: 20 0RF Primary Care Provider: Marcellus Oakes Referrals: Marcellus Oakes MD [Primary Care Provider] -
[2024-01-10 23:00] VITALS: BP 142/88; PULSE 76; RESP 16; O2SAT 99
[2024-01-10 23:28] VITALS: BP 138/79; PULSE 68; RESP 16; TEMP 36.6; O2SAT 99; BMI 27.1
[2024-01-10 23:35] LABS: Lactic Acid 1.1 mmol/L (0.4-1.9)
--- NOTE | 2024-01-10 23:42 | HP.PCM_ITS ---
HPI - General General Date of Admission: 01/10/24 Date of Service: 01/10/24 Chief Complaint: Abdominal pain with bloody bowel movements HPI Narrative TERRIE ALLEN, is a 43 M who presents to [facility] with complaints of lower abdominal pain and diarrhea for the last month that became associated with bright red blood per rectum this afternoon. Patient states that he has experienced this pain and up to 5 bowel movements per day since approximately presents today last month. He was seen by his primary care provider and underwent a limited workup before he was told to begin daily MiraLAX to try to stimulate intestinal absorption. Mr. Allen states that he had some good days and some bad days but his symptoms never truly went away. Then today at approximately 3 PM he had a large amount of bright red blood per rectum and has gone to the bathroom twice more with lesser amounts of bleeding each time. Patient's ER workup is notable for CBC with normal hemoglobin and normal WBC. CT imaging of the abdomen pelvis was performed with IV contrast only and showed an unusual appearance of the cecum, ascending colon, and transverse colon with radiology reading Intussusception of the ileocecal valve extending to the mid transverse colon without severe obstruction or perforation. Mr. Allen has no diagnoses at baseline but does share that he was evaluated for diarrhea and malabsorptive diagnoses approximately 20 years ago with multiple endoscopy sessions. He was ultimately diagnosed with irritable bowel syndrome and instructed to watch his diet. He shares that he thus adopted a very bland diet. Patient's past surgical history is inclusive only of a open left inguinal hernia repair with mesh done in [facility] less than 2 years ago. Patient has a family history of colon cancer recently diagnosed and is 75-year-old father who just underwent surgery for this issue. PFSH Allergy/AdvReac Type Severity Reaction Status Date / Time No Known Allergies Allergy Verified 01/10/24 18:12 Surgical History H/O hernia repair Social History Smoking Status: Never smoker Vital Signs Vital Signs Vital Signs: 01/10/24 18:10 01/10/24 19:38 01/10/24 21:00 Temperature 98.4 F Temperature Source Temporal Pulse Rate 73 75 67 Respiratory Rate 17 14 16 Blood Pressure 147/85 H 112/71 116/72 Blood Pressure Mean 105 84 86 Blood Pressure Source Blood Pressure Position Blood Pressure Location Pulse Ox 100 98 99 Oxygen Delivery Method Room Air Room Air Room Air 01/10/24 23:00 01/10/24 23:28 Temperature 98 F Temperature Source Oral Pulse Rate 76 68 Respiratory Rate 16 16 Blood Pressure 142/88 H 138/79 H Blood Pressure Mean 106 98 Blood Pressure Source Monitor Blood Pressure Position Semi-Fowlers Blood Pressure Location Right Arm Pulse Ox 99 99 Oxygen Delivery Method Room Air Room Air Weight Weight: 216 lb 14.958 oz Body Mass Index (BMI) 27.1 Physical Exam Const alert, oriented x3 and no apparent distress General Appearance: cooperative Resp normal respiratory effort GI GI Narrative: No visible scars, nondistended, slender, soft, minimally tender to palpation particularly in the midline infraumbilical region Results Lab / Micro Data 01/10/24 19:32 01/10/24 19:32 Labs: Laboratory Results - last 24 hr 01/10/24 19:32: WBC 9.5, RBC 5.64, Hgb 15.8, Hct 47.5, MCV 84.2, MCH 28.0, MCHC 33.3, RDW Std Deviation 36.4, RDW Coeff of Khadijah 12.0, Plt Count 290, MPV 10.2, Immature Gran % (Auto) 0.400, Neut % (Auto) 61.6, Lymph % (Auto) 21.0, [facility] % (Auto) 11.4 H, Eos % (Auto) 4.5, Baso % (Auto) 1.1 H, Absolute Neuts (auto) 5.8, Absolute Lymphs (auto) 1.99, Nucleated RBC % 0, Sodium 141, Potassium 3.8, Chloride 107, Carbon Dioxide 30.0, Anion Gap 4 L, BUN 18, Creatinine 1.10, Estim Creat Clear Calc 103.49, Est GFR (MDRD) Af Amer 94, Est GFR (MDRD) Non-Af 77, BUN/Creatinine Ratio 16.4, Glucose 108 H, Calcium 9.6, Total Bilirubin 1.70 H, AST 20, ALT 34, Alkaline Phosphatase 90, Total Protein 7.5, Albumin 4.1, Globulin 3.4, Albumin/Globulin Ratio 1.2 01/10/24 22:50: Lactic Acid 1.1 Micro: Microbiology 01/10/24 20:06 Stool Stool Lactoferrin - Final 01/10/24 20:06 Stool Clostridioides difficile (PCR) - Final Imaging Radiology Impression Abdomen/Pelvis CT 01/10/24 20:42 IMPRESSION: Intussusception of the ileocecal valve extending to the mid transverse colon without severe obstruction or perforation. Electronically Signed: Chidi Carvajal MD at 21:46 EDT , ADDENDUM: 01/10/24 2204 IMPRESSION: Intussusception of the ileocecal valve extending to the mid transverse colon without severe obstruction or perforation. N.B. : Waqar York DO, confirmed on 01/10/2024 21:57:25 (ET) that the referring physician received the results and does not require a verbal communication. Electronically Signed: Chidi Carvajal MD at 21:46 EDT , Assessment & Plan Assessment/Plan (1) Ileocolic intussusception: PLAN: Patient is a 43-year-old, otherwise healthy, male who presents with a 1 month history of frequent bowel movements, lower crampy abdominal pain, and hematochezia today. CT imaging is consistent with ileocolic intussusception. I have been careful to explain to him and his spouse that this represents a rare event but there are several favorable features of Mr. Allen's case?including his remarkable clinical stability, normal labs, and reassuring exam. Still, I have used patient's CT imaging to explain that I would recommend proceeding emergently for diagnostic laparoscopy versus exploratory laparotomy and probable bowel resection to avoid further bowel ischemia and risk for bowel perforation. and Mrs. Allen have a number of questions but ultimately Mr. Allen states that he understands the need to proceed emergently and provides his verbal consent to proceed as recommended. The operating room has been notified and we will look to have patient consented as above given that there are some unknowns prior to going to the operating room. Charges/Coding Visit Charges Inpatient E&M: 56103 Init Hosp L2
[2024-01-11] VITALS (15 sets, daily range): BP systolic 104–150; BP diastolic 53–93; PULSE 71–98; RESP 16–18; TEMP 36.7–37.7; O2SAT 93–99
--- NOTE | 2024-01-11 | COL_PTH ---
PATIENT: TERRIE ALLEN LOC: MS3 U#:[id number] AGE/SX: 43/M ROOM: OK306 RE01/11/[address]: Dr. Trevor Hahn MD : 1980 BED: 1 DIS: 01/16/2024 SPEC #: [id number] RECD: 01/13/24 07:23 STATUS: LISSETT PRETTY #: [id number] DAVE: 01/11/24 00:[address]: Trevor Hahn DEPT: SURGICAL PATHOLOGY RECD BY: Usman Kevin ENTERED: 01/13/24 10:37 SP TYPE: COLON OTHR DR: Dr. Teto Oakes MD Tissues: Colon, NOS Procedures: Surgery Specimen Level V HEADER OPERATION: Hand assisted laparoscopic right hemicolectomy PRE-OP DIAGNOSIS: Ileocolic intussusception TISSUE SUBMITTED: Right colon MICROSCOPIC DIAGNOSIS Right colon, right hemicolectomy; Inflammatory polyp, ileocecal valve (7.0 x 3.5 x 3.0cm). Appendix, focal luminal obliteration. Fourteen benign pericolonic lymph nodes with reactive changes. Small intestinal and colonic donut, no pathologic diagnosis. CHEN/ 01/16/2024 COMMENT Case has been reviewed in consultation with Dr. Wong who concurs with the above diagnosis. IDC:AM MICROSCOPIC DESCRIPTION Slides are reviewed. GROSS DESCRIPTION Received in fixative is one container labeled with the patient's name and designated Right colon. The specimen consists of a right hemicolectomy specimen consisting of cecum with ascending colon, segment of small intestine and appendix. Cecum and ascending colon measures 20.0cmin length. Focal area of colon is dilated and measures up to 6.5cm in diameter. The nondilated portion of colon measures up to 3.0cm in diameter. Segment of small intestine measures 5.5cm in length and appendix measures 5.0cm in length and 0.5cm in diameter. Both resection margins are stapled. The lumen contains fecal material and shows a pendunculated polypoid mass at the Ileocecal valve measuring 7.0 x 3.5 x 3.0cm. Sections of this tumor mass lion-yellow adipose cut surfaces underneath the mucosa. No invasion into the underlying wall is noted. The rest of the mucosa is appeared mildly congested and show focal flattening of the mucosal folds. Also present in the container is a detached piece of adipose tissue measuring 5.0x4.0x2.0cm. Also present in the container is a previously open donut measuring 3.0x1.0x1.0cm. The pericolonic adipose tissue is fixed in lymph node revealing solution. More dictation will follow after fixation. / 01/13/24 Sections of pericolonic adipose tissue reveal multiple lymph nodes. The largest lymph node measures 1.5cm in greatest dimension. Specimen gross is also reviewed along with Drs. Hahn and Patsy and as per Dr. Garner, intussusception was reduced at the time of surgery. Traffic Signal Supervisor Maintenance sections are submitted as follows: 1- donut shape piece of tissue, 2- proximal and distal resection margins, 3- appendix, 4-12- polypoid mass,13- uninvolved portion of small and large intestinal mucosa, 14- one bisected lymph node, 15- one bisected lymph node, 16- 18- each cassette containing one serially sectioned lymph node, 19-25- each cassette containing one bisected lymph node, 26- multiple lymph nodes. Sections will be submitted after additional fixation. / 01/14/2024 More sections are submitted as follows. 27&28- full thickness section of the ileocecal valve underneath the area of polypoid mass / 01/15/24 TC:5 CPT: 60746, 19304
[2024-01-11] MEDS: Cefotetan 2 GM in 0.9% Normal Saline (100mL MB+) 100 ML IV (01:09)
[2024-01-11] MEDS: 0.9% Normal Saline (Pres. free 10 ML Vial (03:30)
[2024-01-11] MEDS: BUPIVACAINE LIPOSOME/PF 20 ML VIAL OPERA.SITE (03:30)
[2024-01-11] MEDS: Bupivacaine 0.25% 30 ML Vial (03:30)
--- NOTE | 2024-01-11 03:59 | PCM.OPRPT ---
Report of Operation Date of Procedure: 01/11/24 Pre-Operative Diagnosis: Ileocecal intussusception Post-Operative Diagnosis: Same Surgery/Procedure Performed:: Hand-assisted laparoscopic right hemicolectomy Surgeon: Trevor Hahn hoop bending machine operator: Veronica Garner hoop bending machine operator: Vivian Sinha Type of Anesthesia: General/Supplemental Anesthesiologist: Bulmaro Aguilar Specimen's removed: Right: Drains: None Estimated Blood Loss (mL): 75 Description of Procedure: After appropriate identification in the preoperative holding area the patient was brought to the operating room where he was positioned supine in the operating room table. There he underwent induction of general anesthesia. He was administered preoperative antibiotics. A John catheter was then placed for accurate ins and outs monitoring. Anesthesia placed a orogastric tube for gastric decompression. A formal timeout was conducted to confirm patient and procedure and the procedure was begun with a Willett entry in the supraumbilical position and placement of a 12 mm balloon trocar. Pneumoperitoneum was established at 15 mmHg and an inspection of the peritoneum was made. There was no evidence of inadvertent injury to the viscera below from our entry. I elected to proceed with additional port placements and placed 5 mm trocars in the suprapubic and left lower quadrant positions. The colon and terminal ileum were assessed and I found the serosa of the ascending colon mild to moderately injected. There also was evidence of acute intussusception on the colon. I then carefully scrutinized the terminal ileum transition to the cecum and found evidence of additional intussusception at this location. Given the rarity of patient's condition and interest in ensuring there was agreement on extent of resection required, I sought assistance from my partner Dr. Garner and she graciously presented to the operating room to assist. As we awaited her arrival I proceeded with laparoscopic mobilization of the colon in a [id number] orientation by incising the white line of Toldt laterally and entering the plane between the omentum and the transverse colon to expose the hepatic flexure. At the pelvic brim I found dense adhesions of the ileum to the brim and these were carefully feathered out before being transected with the LigaSure device to avoid inadvertent injury to the right ureter. Once Dr. Garner arrived I performed a tap block of the upper abdominal wall for a planned incision using a solution of Exparel, bupivacaine, and saline to instill 50 mL in evenly measured aliquots under laparoscopic direction. Then a 7 cm incision with fascial undermining was made using a combination of sharp dissection and electrocautery. A wound protector and GelPort were placed to allow for hand assistance with our procedure. Through this port we were able to further mobilize the terminal ileum after identifying the right ureter. Further mobilization of the hepatic flexure was also then undertaken. We checked overall mobility of the right colon and found it easily reached to our supraumbilical port site. On reaching this observation, we made the decision to extracorporealize the right colon via our hand assist midline incision. The specimen was delivered through this opening but mobility was still lacking so the colon was returned to the abdomen where we performed some limited lysis of adhesions along the terminal ileum and at the hepatic flexure as there were a few remaining adhesions that proceeded under the right lobe of the liver. This time when pneumoperitoneum was evacuated and the specimen was delivered through the opening we were able to clearly see our planned proximal and distal transection points. Openings were made in the small bowel and colonic mesentery, respectively. Then the bowel was transected at each location with serial blue load firings from a TAWNY stapler. The intervening mesentery was taken with application of the LigaSure device. Prior to complete division of this layer, I sought the ileocolic pedicle which was minimally shrouded in the patient's mesenteric fat. This vessel was isolated and clamped proximally and distally then I divided the vessel and performed a stick tie of the vessel using 2-0 silk as a ligature. The remaining mesentery was divided with LigaSure and the specimen was passed off the field for pathologic processing. I then aligned the remaining ileum and transverse colon. The corners of the staple lines were removed. A [id number], functional end to end stapled ileocolonic anastomosis was produced with a third firing of our TAWNY stapler. The common channel was reoriented perpendicularly to our original staple lines and was closed with a TX 60 mm stapler. The staple line used at just 1 point and this was oversewn with a 3-0 stitch to Lembert the staple line and that area specifically. A crotch stitch was also placed with a 3-0 silk stitch. Satisfied with our anastomosis the bowel was returned to the peritoneum. Personnel changed gown and gloves and we then began closure of the abdomen. The specimen extraction site was closed with #1 PDS in a bidirectional fashion from the corners and tying in the middle. The subcutaneous layer was irrigated above the fascia and the skin was closed with a running 4-0 Monocryl. The remaining 5 mm port sites were also closed in a subcuticular fashion with 4-0 Monocryl. Dressings were applied and the patient's John catheter was removed. Patient was awoken from general anesthetic without complication and he was taken to PACU for ongoing recovery. Grafts/Implants Used: None Complications None Admit VTE Documentation VTE Mechan Device Prophylaxis: SCD's
[2024-01-11] MEDS: 0.9% Normal Saline (1000mL) 1,000 ML 125 ML IV ×3 (05:06→19:33)
[2024-01-11] MEDS: Ketorolac 30 MG/ML Syringe IV ×4 (05:13→23:25)
[2024-01-11 08:28] LABS: Magnesium 1.9 mg/dL (1.6-2.6); Phosphorus 2.9 mg/dL (2.5-4.9)
[2024-01-11] MEDS: 0.9% Saline Lock 10 ML Syringe IV ×2 (09:05→17:23)
[2024-01-11] MEDS: HYDROmorphone 0.5 MG/0.5 ML SYRINGE IV ×2 (09:05→12:54)
[2024-01-11] MEDS: Ondansetron 4 MG/2 ML Vial IV (09:05)
--- NOTE | 2024-01-11 11:30 | CASEMGMT ---
RN CM Face to Face with patient for initial transition planning/care coordination assessment. RN CM introduced self and role at [facility]. Patient lying in bed, alert and oriented, at bedside. Patient and willing to participate in assessment and is able to answer all questions appropriately. Care providers, pharmacy, and demographics verified. PCP: none Specialists: none Preferred Pharmacy: [facility]; [facility] retail at discharge. Insurance: Bruce Prescription Benefit: yes Living Will/HPOA: none LNOK: Living Arrangements: Patient lives with in a 2 story home. Patient is independent and able to ambulate stair at home. Transportation: self, DME/HHC: Patient denies DME. No previous HHC or SNF Patient wishes to discharge home, denies need for home health at this time. Patient states he has no further needs or concerns at this time. CM to follow for discharge planning needs that may arise. Disposition Plan: Patient to discharge home with family support and follow-up plans in place. Janette WEISS, RN, CM
[2024-01-11 14:26] LABS: Absolute Lymphocyte Count 1.26 X10^3/uL (0.83-4.51); Basophil# 0.06 X10^3/uL; Basophil% 0.4 % (0-1); Eosinophil# 0.01 X10^3/uL; Eosinophils% 0.1 % (0-5); Hematocrit 42.9 % (40-54); Hemoglobin 13.9 g/dL (13.0-16.5); Lymphocyte # 1.26 X10^3/ul (0.83-4.51); Lymphocyte % 9.2 % (19-41); Mean Corp Hgb Conc 32.4 g/dL (32-36); Mean Corpuscular Hgb 27.9 pg (27.0-32.0); Mean Corpuscular Volume 86.1 fL (80-94); Mean Platelet Vol. 9.8 fl (6.2-12.0); Monocyte# 1.31 X10^3/uL; Monocyte% 9.6 % (0-10); NRBC Flagged by Analyzer 0 % (0-5); Neutrophil # 11.02 X10^3/uL (2.7-7.7); Neutrophil % 80.3 % (47-70); Platelet Count 250 K/mm3 (150-450); RBC Distribution Width CV 12.3 % (11.6-14.6); RBC Distribution Width SD 38.5 fl (35.1-43.9); Red Blood Count 4.98 M/mm3 (4.6-6.2); White Blood Count 13.7 K/mm3 (4.4-11.0)
[2024-01-11 15:01] LABS: Anion Gap 4 (5-15); BUN 14 mg/dL (7-18); BUN/Creat Ratio 12.4 RATIO (10-20); Calcium,Total 8.3 mg/dL (8.5-10.1); Chloride 109 mmol/L (98-107); Creatinine, Serum 1.13 mg/dL (0.70-1.30); EST Glomerular Filtration Rate 75 mL/min (>60); Est Glom Filt Rate - Afr Amer 91 mL/min (>60); Estimated Creatinine Clearance 103.49 ml/min; Glucose 137 mg/dL (74-106); Magnesium 1.7 mg/dL (1.6-2.6); Phosphorus 2.7 mg/dL (2.5-4.9); Potassium 3.8 mmol/L (3.5-5.1); Sodium Level 139 mmol/L (136-145)
[2024-01-11] MEDS: oxyCODONE 5 MG Tablet PO ×2 (17:22→23:25)
[2024-01-11] MEDS: Acetaminophen 500 MG Tablet PO (17:22)
[2024-01-11] MEDS: Tamsulosin HCl 0.4 MG Capsule PO (19:33)
[2024-01-12] VITALS (7 sets, daily range): BP systolic 100–114; BP diastolic 57–72; PULSE 87–99; RESP 12–22; TEMP 36.6–38.1; O2SAT 95–98
[2024-01-12] MEDS: 0.9% Normal Saline (1000mL) 1,000 ML 125 ML IV (03:31)
[2024-01-12] MEDS: Ondansetron 4 MG/2 ML Vial IV ×4 (05:05→23:57)
[2024-01-12] MEDS: Ketorolac 30 MG/ML Syringe IV ×3 (05:06→18:37)
[2024-01-12] MEDS: oxyCODONE 5 MG Tablet PO ×3 (05:23→21:21)
[2024-01-12 06:36] LABS: Absolute Lymphocyte Count 1.16 X10^3/uL (0.83-4.51); Absolute Neutrophil Count 9.9 X10^3/uL (2.0-7.7); Basophil# 0.04 X10^3/uL; Basophil% 0.3 % (0-1); Eosinophil# 0.09 X10^3/uL; Eosinophils% 0.7 % (0-5); Hemoglobin 13.4 g/dL (13.0-16.5); Lymphocyte # 1.16 X10^3/ul (0.83-4.51); Lymphocyte % 9.2 % (19-41); Mean Corp Hgb Conc 32.7 g/dL (32-36); Mean Corpuscular Hgb 28.6 pg (27.0-32.0); Mean Corpuscular Volume 87.6 fL (80-94); Mean Platelet Vol. 10.7 fl (6.2-12.0); Monocyte# 1.48 X10^3/uL; Monocyte% 11.7 % (0-10); NRBC Flagged by Analyzer 0 % (0-5); Neutrophil # 9.86 X10^3/uL (2.7-7.7); Neutrophil % 77.8 % (47-70); Platelet Count 217 K/mm3 (150-450); RBC Distribution Width CV 12.4 % (11.6-14.6); RBC Distribution Width SD 39.4 fl (35.1-43.9); Red Blood Count 4.68 M/mm3 (4.6-6.2); White Blood Count 12.7 K/mm3 (4.4-11.0)
[2024-01-12 07:01] LABS: Anion Gap 4 (5-15); BUN 13 mg/dL (7-18); BUN/Creat Ratio 11.7 RATIO (10-20); Calcium,Total 8.3 mg/dL (8.5-10.1); Chloride 108 mmol/L (98-107); Creatinine, Serum 1.11 mg/dL (0.70-1.30); EST Glomerular Filtration Rate 77 mL/min (>60); Est Glom Filt Rate - Afr Amer 93 mL/min (>60); Estimated Creatinine Clearance 105.35 ml/min; Glucose 105 mg/dL (74-106); Potassium 3.7 mmol/L (3.5-5.1); Sodium Level 138 mmol/L (136-145)
--- NOTE | 2024-01-12 09:07 | PN.SURG_ITS ---
Subjective Subjective Patient seen and examined during AM rounds. He is found resting in bed. He states that he had some pain when getting up to use the bathroom this morning. This led to some nausea but generally has not had nausea in response to his liquid intake. He also confirms that he is now urinating following a straight catheterization last evening after experiencing retention. He denies any return of bowel function with gas. He is ambulating regularly. Objective Data Objective Data Vital Signs: Vital Signs Temp Pulse Resp BP Pulse Ox O2 Del Method 98.8 F 98 12 100/61 97 Room Air 01/12/24 08:10 01/12/24 08:10 01/12/24 08:10 01/12/24 08:10 01/12/24 08:10 01/12/24 08:10 Oxygen Delivery Method Room Air Weight: 216 lb 14.958 oz Body Mass Index (BMI) 27.1 Intake & Output: Intake and Output for Last 24 Hours 01/10/24 01/11/24 01/12/24 23:59 23:59 23:59 Intake Total 2906.25 / 3306.25 1395.83 / 1395.83 Output Total 750 / 750 200 / 200 Balance 2156.25 / 2556.25 1195.83 / 1195.83 Lab / Micro Data 01/12/24 05:38 01/12/24 05:38 Labs: Laboratory Results - last 24 hr 01/11/24 14:15: WBC 13.7 H, RBC 4.98, Hgb 13.9, Hct 42.9, MCV 86.1, MCH 27.9, MCHC 32.4, RDW Std Deviation 38.5, RDW Coeff of Khadijah 12.3, Plt Count 250, MPV 9 .8, Immature Gran % (Auto) 0.400, Neut % (Auto) 80.3 H, Lymph % (Auto) 9.2 L, Dorado % (Auto) 9.6, Eos % (Auto) 0.1, Baso % (Auto) 0.4, Absolute Neuts (auto) 11.0 H, Absolute Lymphs (auto) 1.26, Nucleated RBC % 0, Sodium 139, Potassium 3.8, Chloride 109 H, Carbon Dioxide 26.0, Anion Gap 4 L, BUN 14, Creatinine 1.13, Estim Creat Clear Calc 103.49, Est GFR (MDRD) Af Amer 91, Est GFR (MDRD) Non-Af 75, BUN/Creatinine Ratio 12.4, Glucose 137 H, Calcium 8.3 L, Phosphorus 2.7, Magnesium 1.7 01/12/24 05:38: WBC 12.7 H, RBC 4.68, Hgb 13.4, Hct 41.0, MCV 87.6, MCH 28.6, MCHC 32.7, RDW Std Deviation 39.4, RDW Coeff of Khadijah 12.4, Plt Count 217, MPV 10.7, Immature Gran % (Auto) 0.300, Neut % (Auto) 77.8 H, Lymph % (Auto) 9.2 L, Dorado % (Auto) 11.7 H, Eos % (Auto) 0.7, Baso % (Auto) 0.3, Absolute Neuts (auto) 9.9 H, Absolute Lymphs (auto) 1.16, Nucleated RBC % 0, Sodium 138, Potassium 3.7, Chloride 108 H, Carbon Dioxide 26.0, Anion Gap 4 L, BUN 13, Creatinine 1.11, Estim Creat Clear Calc 105.35, Est GFR (MDRD) Af Amer 93, Est GFR (MDRD) Non-Af 77, BUN/Creatinine Ratio 11.7, Glucose 105, Calcium 8.3 L Micro: Microbiology 01/10/24 20:06 Stool Stool Lactoferrin - Final 01/10/24 20:06 Stool Enteric Bacteriology - Final 01/10/24 20:06 Stool Clostridioides difficile (PCR) - Final Physical Exam Const oriented x3 Resp normal respiratory effort GI GI Narrative: Slight distention, operative dressings remain intact and are clean and dry?when removed the port sites remain covered with Steri-Strips. Patient's main incision remains covered with operative dressing. Patient has some tenderness about the incision sites with palpation. Assessment & Plan Assessment/Plan (1) Ileocolic intussusception: PLAN: Patient is a 43-year-old, otherwise healthy, male who presents with a 1 month history of frequent bowel movements, lower crampy abdominal pain, and hematochezia today. CT imaging is consistent with ileocolic intussusception. He is postoperative day 1 from hand-assisted laparoscopic right hemicolectomy. He is still experiencing some postoperative pain but appears to be tolerating a liquid diet. We continue to await return of bowel function. He had some urinary retention last night and required straight catheterization but reports that he has voiding spontaneously now. Patient is encouraged to ambulate and we will hold on advancing his diet further until he exhibits return of bowel function. Charges/Coding Visit Charges Inpatient E&M: 36991 Subs Hosp L2
[2024-01-12] MEDS: Magnesium Sulfate 2 GM in Dextrose 5%-Water (100mL Bag) 100 ML IV (10:32)
--- NOTE | 2024-01-12 10:49 | NURSING ---
This RN is aware of Chica TINSLEY's Vital Signs at 0810 this morning.
[2024-01-12] MEDS: 0.9% Saline Lock 10 ML Syringe IV ×3 (11:22→23:57)
[2024-01-12] MEDS: 0.9% Normal Saline (1000mL) 1,000 ML 50 ML IV (14:46)
[2024-01-12] MEDS: HYDROmorphone 0.5 MG/0.5 ML SYRINGE IV (16:23)
--- NOTE | 2024-01-12 16:24 | NURSING ---
Pt requesting nausea and pain medication. This RN went in to give pt his pain medication and pt stated he felt like he had a fever and looked sweaty/ temp of 100.6. Mystique TRANSMISSION MAINTENANCE SUPERVISOR texting Dr. Hahn to inform him of temp and asking if we can give zofran early as it is not due for another hour.
[2024-01-12] MEDS: Acetaminophen 500 MG Tablet PO (16:33)
--- NOTE | 2024-01-12 16:39 | NURSING ---
Pt is aware that he is now NPO except for ice chips. 500mg tylenol given to help get fever down. CMP ordered stat.
--- NOTE | 2024-01-12 16:47 | NURSING ---
This RN reviewed Elliott Orellana LPN charting on pts assessment. Also, lab here at this time to do stat CMP.
[2024-01-12 17:18] LABS: ALB/GLOB Ratio 0.9 RATIO (0.9-2.4); AST(SGOT) 27 U/L (15-37); Alanine Aminotransfer ALT/SGPT 22 U/L (16-61); Albumin, Serum 2.9 g/dL (3.2-5.0); Alkaline Phosphatase 66 U/L (45-117); Anion Gap 3 (5-15); BUN 10 mg/dL (7-18); BUN/Creat Ratio 8.6 RATIO (10-20); Chloride 106 mmol/L (98-107); Creatinine, Serum 1.16 mg/dL (0.70-1.30); EST Glomerular Filtration Rate 73 mL/min (>60); Est Glom Filt Rate - Afr Amer 88 mL/min (>60); Estimated Creatinine Clearance 100.81 ml/min; Globulin 3.2 g/dL (2.2-4.2); Glucose 125 mg/dL (74-106); Potassium 3.6 mmol/L (3.5-5.1); Protein, Total 6.1 g/dL (6.4-8.2); Sodium Level 137 mmol/L (136-145)
[2024-01-12 17:56] LABS: Bilirubin, Direct 0.36 mg/dL (0.00-0.30)
[2024-01-12] MEDS: Tamsulosin HCl 0.4 MG Capsule PO (18:40)
--- NOTE | 2024-01-12 18:50 | RAD_ITS ---
STUDY: X-RAY - ABDOMEN/PELVIS REASON FOR EXAM: Male, 43 years old. New postop pain TECHNIQUE: Single AP view of the abdomen / pelvis. COMPARISON: None. FINDINGS: Normal visualized lung bases. There is an unremarkable bowel gas pattern. The visualized liver, spleen and kidneys are grossly normal in size and morphology. Normal soft tissue structures. Normal visualized osseous structures. RAD/Abdomen Single View (Portable) IMPRESSION: Nonspecific bowel gas pattern. Electronically Signed: Chidi Carvajal MD at 19:09 EDT ,
[2024-01-13] VITALS (9 sets, daily range): BP systolic 112–137; BP diastolic 58–68; PULSE 97–110; RESP 16–20; TEMP 36.9–38.2; O2SAT 95–100
[2024-01-13] MEDS: Ketorolac 30 MG/ML Syringe IV ×5 (00:15→23:59)
[2024-01-13] MEDS: oxyCODONE 5 MG Tablet PO ×3 (05:44→22:29)
[2024-01-13 05:56] LABS: Absolute Lymphocyte Count 1.13 X10^3/uL (0.83-4.51); Absolute Neutrophil Count 10.4 X10^3/uL (2.0-7.7); Basophil# 0.05 X10^3/uL; Basophil% 0.4 % (0-1); Eosinophil# 0.09 X10^3/uL; Eosinophils% 0.7 % (0-5); Hematocrit 38.2 % (40-54); Hemoglobin 12.6 g/dL (13.0-16.5); Lymphocyte # 1.13 X10^3/ul (0.83-4.51); Lymphocyte % 8.6 % (19-41); Mean Corpuscular Hgb 28.9 pg (27.0-32.0); Mean Corpuscular Volume 87.6 fL (80-94); Mean Platelet Vol. 10.4 fl (6.2-12.0); Monocyte# 1.36 X10^3/uL; Monocyte% 10.4 % (0-10); NRBC Flagged by Analyzer 0 % (0-5); Neutrophil # 10.42 X10^3/uL (2.7-7.7); Neutrophil % 79.4 % (47-70); Platelet Count 215 K/mm3 (150-450); RBC Distribution Width CV 12.1 % (11.6-14.6); RBC Distribution Width SD 39.3 fl (35.1-43.9); Red Blood Count 4.36 M/mm3 (4.6-6.2); White Blood Count 13.1 K/mm3 (4.4-11.0)
[2024-01-13 06:47] LABS: ALB/GLOB Ratio 0.8 RATIO (0.9-2.4); AST(SGOT) 31 U/L (15-37); Alanine Aminotransfer ALT/SGPT 24 U/L (16-61); Albumin, Serum 2.7 g/dL (3.2-5.0); Alkaline Phosphatase 74 U/L (45-117); Anion Gap 4 (5-15); BUN 12 mg/dL (7-18); BUN/Creat Ratio 11.4 RATIO (10-20); Calcium,Total 8.1 mg/dL (8.5-10.1); Chloride 108 mmol/L (98-107); Creatinine, Serum 1.05 mg/dL (0.70-1.30); EST Glomerular Filtration Rate 82 mL/min (>60); Est Glom Filt Rate - Afr Amer 99 mL/min (>60); Estimated Creatinine Clearance 111.37 ml/min; Globulin 3.2 g/dL (2.2-4.2); Glucose 102 mg/dL (74-106); Phosphorus 2.3 mg/dL (2.5-4.9); Protein, Total 5.9 g/dL (6.4-8.2); Sodium Level 139 mmol/L (136-145)
--- NOTE | 2024-01-13 09:09 | PN.SURG_ITS ---
Subjective Subjective Patient evaluated resting comfortably in the chair. He notes incisional abdominal soreness. He had some nausea and heartburn over night. He had some ice chips without any concerns. He denies flatus and BM. Objective Data Objective Data Vital Signs: Vital Signs Temp Pulse Resp BP Pulse Ox O2 Del Method 98.7 F 97 16 115/68 95 Room Air 01/13/24 08:19 01/13/24 08:19 01/13/24 08:19 01/13/24 08:19 01/13/24 08:19 01/13/24 08:21 Oxygen Delivery Method Room Air Weight: 216 lb 14.958 oz Body Mass Index (BMI) 27.1 Intake & Output: Intake and Output for Last 24 Hours 01/11/24 01/12/24 01/13/24 23:59 23:59 23:59 Intake Total 2906.25 / 3306.25 2481.91 / 2481.91 Output Total 750 / 750 400 / 1100 900 / 900 Balance 2156.25 / 2556.25 2081.91 / 1381.91 -900 / -900 Lab / Micro Data 01/13/24 05:13 01/13/24 05:13 Labs: Laboratory Results - last 24 hr 01/12/24 16:50: Sodium 137, Potassium 3.6, Chloride 106, Carbon Dioxide 28.0, Anion Gap 3 L, BUN 10, Creatinine 1.16, Estim Creat Clear Calc 100.81, Est GFR (MDRD) Af Amer 88, Est GFR (MDRD) Non-Af 73, BUN/Creatinine Ratio 8.6 L, Glucose 125 H, Calcium 8.0 L, Total Bilirubin 3.30 H, Direct Bilirubin 0.36 H, AST 27, ALT 22, Alkaline Phosphatase 66, Total Protein 6.1 L, Albumin 2.9 L, Globulin 3.2, Albumin/Globulin Ratio 0.9 01/13/24 05:13: WBC 13.1 H, RBC 4.36 L, Hgb 12.6 L, Hct 38.2 L, MCV 87.6, MCH 28.9, MCHC 33.0, RDW Std Deviation 39.3, RDW Coeff of Khadijah 12.1, Plt Count 215, MPV 10.4, Immature Gran % (Auto) 0.500, Neut % (Auto) 79.4 H, Lymph % (Auto) 8.6 L, [place] % (Auto) 10.4 H, Eos % (Auto) 0.7, Baso % (Auto) 0.4, Absolute Neuts (auto) 10.4 H, Absolute Lymphs (auto) 1.13, Nucleated RBC % 0, Sodium 139, Potassium 4.0, Chloride 108 H, Carbon Dioxide 27.0, Anion Gap 4 L, BUN 12, Creatinine 1.05, Estim Creat Clear Calc 111.37, Est GFR (MDRD) Af Amer 99, Est GFR (MDRD) Non-Af 82, BUN/Creatinine Ratio 11.4, Glucose 102, Calcium 8.1 L, Phosphorus 2.3 L, Magnesium 2.0, Total Bilirubin 3.20 H, AST 31, ALT 24, Alkaline Phosphatase 74, Total Protein 5.9 L, Albumin 2.7 L, Globulin 3.2, Albumin/Globulin Ratio 0.8 L Micro: Microbiology 01/10/24 20:06 Stool Stool Lactoferrin - Final 01/10/24 20:06 Stool Enteric Bacteriology - Final 01/10/24 20:06 Stool Clostridioides difficile (PCR) - Final Radiography Diagnostic Testing: Radiology Impression KUB X-Ray 01/12/24 18:50 IMPRESSION: Nonspecific bowel gas pattern. Electronically Signed: Chidi Carvajal MD at 19:09 EDT , Physical Exam GI GI Narrative: Abdomen- soft, generalized tenderness. No erythema or infection noted. Hypoactive bowel sounds. Op-site dressing removed. Assessment & Plan Assessment/Plan (1) Ileocolic intussusception: PLAN: I have evaluated this patient in conjunction with Dr. Jovani Campbell on advancing diet until bowel function Continue ambulation and I.S. Labs reviewed. Phosphorous replaced We will continue to monitor this patient Charges/Coding Visit Charges Inpatient E&M: 39920 Subs Hosp L1 (post-op)
[2024-01-13] MEDS: 0.9% Normal Saline (1000mL) 1,000 ML 50 ML IV (10:01)
[2024-01-13] MEDS: Ondansetron 4 MG/2 ML Vial IV (10:05)
[2024-01-13] MEDS: HYDROmorphone 0.5 MG/0.5 ML SYRINGE IV (10:05)
[2024-01-13] MEDS: Potassium Phosphate 15 MM in 0.9% Normal Saline (250mL Bag) 250 ML 125 MM IV (11:32)
[2024-01-13] MEDS: Acetaminophen 500 MG Tablet PO ×2 (11:41→18:32)
[2024-01-13] MEDS: 0.9% Saline Lock 10 ML Syringe IV (12:15)
[2024-01-13] MEDS: Tamsulosin HCl 0.4 MG Capsule PO (18:23)
[2024-01-14 02:39] VITALS: BP 100/56; PULSE 92; RESP 16; TEMP 37.2; O2SAT 96
[2024-01-14] MEDS: Acetaminophen 500 MG Tablet PO ×2 (02:40→14:44)
[2024-01-14] MEDS: oxyCODONE 5 MG Tablet PO ×4 (04:23→23:06)
[2024-01-14] MEDS: Ketorolac 30 MG/ML Syringe IV (06:27)
[2024-01-14] MEDS: 0.9% Normal Saline (1000mL) 1,000 ML 50 ML IV (06:28)
[2024-01-14 06:39] LABS: Absolute Neutrophil Count 10.4 X10^3/uL (2.0-7.7); Basophil# 0.05 X10^3/uL; Basophil% 0.4 % (0-1); Eosinophil# 0.18 X10^3/uL; Eosinophils% 1.4 % (0-5); Hematocrit 34.8 % (40-54); Hemoglobin 11.4 g/dL (13.0-16.5); Lymphocyte % 6.9 % (19-41); Mean Corp Hgb Conc 32.8 g/dL (32-36); Mean Corpuscular Hgb 28.2 pg (27.0-32.0); Mean Corpuscular Volume 86.1 fL (80-94); Mean Platelet Vol. 10.1 fl (6.2-12.0); Monocyte# 1.41 X10^3/uL; Monocyte% 10.8 % (0-10); NRBC Flagged by Analyzer 0 % (0-5); Neutrophil # 10.42 X10^3/uL (2.7-7.7); Platelet Count 219 K/mm3 (150-450); RBC Distribution Width CV 12.3 % (11.6-14.6); RBC Distribution Width SD 38.7 fl (35.1-43.9); Red Blood Count 4.04 M/mm3 (4.6-6.2)
[2024-01-14 07:04] VITALS: TEMP 37.1
[2024-01-14 07:11] LABS: ALB/GLOB Ratio 0.8 RATIO (0.9-2.4); AST(SGOT) 29 U/L (15-37); Alanine Aminotransfer ALT/SGPT 20 U/L (16-61); Albumin, Serum 2.4 g/dL (3.2-5.0); Alkaline Phosphatase 62 U/L (45-117); Anion Gap 3 (5-15); BUN 15 mg/dL (7-18); BUN/Creat Ratio 13.5 RATIO (10-20); Calcium,Total 8.1 mg/dL (8.5-10.1); Chloride 108 mmol/L (98-107); Creatinine, Serum 1.11 mg/dL (0.70-1.30); EST Glomerular Filtration Rate 77 mL/min (>60); Est Glom Filt Rate - Afr Amer 93 mL/min (>60); Estimated Creatinine Clearance 105.35 ml/min; Globulin 3.2 g/dL (2.2-4.2); Glucose 131 mg/dL (74-106); Potassium 3.4 mmol/L (3.5-5.1); Protein, Total 5.6 g/dL (6.4-8.2); Sodium Level 137 mmol/L (136-145)
--- NOTE | 2024-01-14 07:52 | PCM.PN.SRG ---
Subjective Subjective Patient evaluated resting in bed. He notes having a very restful night. He denies nausea, vomiting with clear liquids. He notes with the Tramadol medication he feels he is having sweating episodes with. He continues to pass flatus and have bowel movements. Objective Data Objective Data Vital Signs: Vital Signs Temp Pulse Resp BP Pulse Ox O2 Del Method 98.8 F 92 16 100/56 L 96 Room Air 01/14/24 07:04 01/14/24 02:39 01/14/24 02:39 01/14/24 02:39 01/14/24 02:39 01/14/24 02:39 Oxygen Delivery Method Room Air Weight: 216 lb 14.958 oz Body Mass Index (BMI) 27.1 Intake & Output: Intake and Output for Last 24 Hours 01/12/24 01/13/24 01/14/24 23:59 23:59 23:59 Intake Total 2481.91 / 2481.91 1667.5 / 1967.5 1500 / 1500 Output Total 400 / 1100 900 / 900 Balance 2081.91 / 1381.91 767.5 / 1067.5 1500 / 1500 Lab / Micro Data 01/14/24 06:07 01/14/24 06:07 Labs: Laboratory Results - last 24 hr 01/14/24 06:07: WBC 13.0 H, RBC 4.04 L, Hgb 11.4 L, Hct 34.8 L, MCV 86.1, MCH 28.2, MCHC 32.8, RDW Std Deviation 38.7, RDW Coeff of Khadijah 12.3, Plt Count 219, MPV 10.1, Immature Gran % (Auto) 0.500, Neut % (Auto) 80.0 H, Lymph % (Auto) 6.9 L, [place] % (Auto) 10.8 H, Eos % (Auto) 1.4, Baso % (Auto) 0.4, Absolute Neuts (auto) 10.4 H, Absolute Lymphs (auto) 0.90, Nucleated RBC % 0, Sodium 137, Potassium 3.4 L, Chloride 108 H, Carbon Dioxide 26.0, Anion Gap 3 L, BUN 15, Creatinine 1.11, Estim Creat Clear Calc 105.35, Est GFR (MDRD) Af Amer 93, Est GFR (MDRD) Non-Af 77, BUN/Creatinine Ratio 13.5, Glucose 131 H, Calcium 8.1 L, Total Bilirubin 2.50 H, AST 29, ALT 20, Alkaline Phosphatase 62, Total Protein 5.6 L, Albumin 2.4 L, Globulin 3.2, Albumin/Globulin Ratio 0.8 L Micro: Microbiology 01/10/24 20:06 Stool Stool Lactoferrin - Final 01/10/24 20:06 Stool Enteric Bacteriology - Final 01/10/24 20:06 Stool Clostridioides difficile (PCR) - Final Physical Exam GI GI Narrative: Incisions- c/d/i. Slight amount of dark erythema more consistent with early ecchymosis, however will monitor. No signs of infection. No drainage from the incisions noted. No active bleeding or oozing noted. Tenderness noted at the right lower port site and near the midline incision. Assessment & Plan Assessment/Plan (1) Ileocolic intussusception: PLAN: I have seen this patient in conjunction with Dr. Hahn Plan to transition patient to oral pain medication only today Increase his diet to full liquids and add protein supplement (Ensure protein supplement is lactose free per dietitian) Patient may shower today Labs reviewed Possible increase to transitional diet later today We will continue to monitor this patient Hopeful discharge tomorrow Charges/Coding Visit Charges Inpatient E&M: 86073 Subs Hosp L1 (no charge; post-op)
[2024-01-14 08:47] LABS: Phosphorus 1.6 mg/dL (2.5-4.9)
[2024-01-14 09:18] VITALS: BP 105/64; PULSE 98; RESP 18; TEMP 36.8; O2SAT 99
[2024-01-14] MEDS: Potassium Phosphate 30 MM in 0.9% Normal Saline (250mL Bag) 250 ML 42 MM IV (10:44)
[2024-01-14] MEDS: Celecoxib 200 MG Capsule PO (10:51)
[2024-01-14] MEDS: Ensure Plus High Protein 120 ML LIQUID PO ×2 (10:52→19:47)
--- NOTE | 2024-01-14 13:47 | CASEMGMT ---
Social Work SW met with pt to discuss advance directives.? Pt confirms he has completed a living will and health care POA naming his Precious Ragland.? Pt notified that documents are not on file at [facility] and SW requested they be brought in for scanning into the EMR.? PAVEL Mari
[2024-01-14 14:40] VITALS: BP 113/66; PULSE 104; RESP 18; TEMP 37.3; O2SAT 95
[2024-01-14 16:12] VITALS: BMI 26.9
[2024-01-14] MEDS: Tamsulosin HCl 0.4 MG Capsule PO (17:05)
[2024-01-14 22:01] VITALS: BP 103/60; PULSE 86; RESP 16; TEMP 37.2; O2SAT 96
[2024-01-15] MEDS: 0.9% Normal Saline (1000mL) 1,000 ML 50 ML IV ×2 (02:25→21:40)
[2024-01-15 02:28] VITALS: BP 111/59; PULSE 103; RESP 16; TEMP 37.2; O2SAT 94
[2024-01-15] MEDS: Ketorolac 30 MG/ML Syringe IV (02:36)
[2024-01-15 07:05] LABS: Absolute Lymphocyte Count 1.41 X10^3/uL (0.83-4.51); Absolute Neutrophil Count 7.8 X10^3/uL (2.0-7.7); Basophil# 0.06 X10^3/uL; Basophil% 0.5 % (0-1); Eosinophil# 0.71 X10^3/uL; Eosinophils% 6.3 % (0-5); Hematocrit 33.8 % (40-54); Hemoglobin 11.1 g/dL (13.0-16.5); Lymphocyte # 1.41 X10^3/ul (0.83-4.51); Lymphocyte % 12.4 % (19-41); Mean Corp Hgb Conc 32.8 g/dL (32-36); Mean Corpuscular Hgb 28.2 pg (27.0-32.0); Mean Platelet Vol. 10.2 fl (6.2-12.0); Monocyte# 1.32 X10^3/uL; Monocyte% 11.6 % (0-10); NRBC Flagged by Analyzer 0 % (0-5); Neutrophil # 7.81 X10^3/uL (2.7-7.7); Neutrophil % 68.9 % (47-70); Platelet Count 245 K/mm3 (150-450); RBC Distribution Width CV 12.3 % (11.6-14.6); RBC Distribution Width SD 38.8 fl (35.1-43.9); Red Blood Count 3.93 M/mm3 (4.6-6.2); White Blood Count 11.3 K/mm3 (4.4-11.0)
--- NOTE | 2024-01-15 08:22 | PCM.PN.SRG ---
Subjective Subjective Patient is a 43 y/o M I am following in conjunction with Dr. Hahn. Patient notes having night sweats over night. He denies having a fever. He denies nausea, vomiting. He is tolerating a transitional diet well. He notes keeping up with the pain medication over night. The nursing staff outlined the erythema surrounding the midline incision. Erythema was not noted to spread beyond the outline. Patient notes he had a difficult night of sleep. Objective Data Objective Data Vital Signs: Vital Signs Temp Pulse Resp BP Pulse Ox O2 Del Method 98.9 F 103 H 16 111/59 L 94 Room Air 01/15/24 02:28 01/15/24 02:28 01/15/24 02:28 01/15/24 02:28 01/15/24 02:28 01/15/24 02:28 Oxygen Delivery Method Room Air Weight: 221 lb Body Mass Index (BMI) 26.9 Intake & Output: Intake and Output for Last 24 Hours 01/13/24 01/14/24 01/15/24 23:59 23:59 23:59 Intake Total 1667.5 / 1967.5 2160 / 2410 1847.5 / 1847.5 Output Total 900 / 900 600 / 600 Balance 767.5 / 1067.5 2160 / 2410 1247.5 / 1247.5 Lab / Micro Data 01/15/24 06:28 01/14/24 06:07 Labs: Laboratory Results - last 24 hr 01/14/24 06:07: Phosphorus 1.6 L 01/15/24 06:28: WBC 11.3 H, RBC 3.93 L, Hgb 11.1 L, Hct 33.8 L, MCV 86.0, MCH 28.2, MCHC 32.8, RDW Std Deviation 38.8, RDW Coeff of Khadijah 12.3, Plt Count 245, MPV 10.2, Immature Gran % (Auto) 0.300, Neut % (Auto) 68.9, Lymph % (Auto) 12.4 L, [place] % (Auto) 11.6 H, Eos % (Auto) 6.3 H, Baso % (Auto) 0.5, Absolute Neuts (auto) 7.8 H, Absolute Lymphs (auto) 1.41, Nucleated RBC % 0 Micro: Microbiology 01/10/24 20:06 Stool Stool Lactoferrin - Final 01/10/24 20:06 Stool Enteric Bacteriology - Final 01/10/24 20:06 Stool Clostridioides difficile (PCR) - Final Physical Exam GI GI Narrative: Abdomen- soft, slight tenderness at the incision sites. Outline of the erythema drawn in purple marking pen. No erythema noted outside of the purple line. Erythema with some blanching noted higher up on the right side of the incision. Three steri-strips were removed. Using a three piece set, a Qtip was used to puncture the incision where there appeared to be a weak spot. A moderate amount of foul malodorous, brown drainage was expressed. Culture was obtained and sent. Incision was irrigated out with 20 cc of normal saline until clear drainage was expressed. 1/4 iodoform packing was placed followed by two folded 4 x 4 gauze dressings secured with medipore tape. Assessment & Plan Assessment/Plan (1) Infection following a procedure, deep incisional surgical site, initial encounter: (2) Ileocolic intussusception: PLAN: Plan I am following this patient in conjunction with Dr. Hahn, who has also independently evaluated this patient. Labs reviewed. Chemistry still pending WBC decreased Midline incisional infection with moderate foul malodorous, purulent fluid. Cultured. Await microbiology Started oral Augmentin 875 mg BID. Patient will be discharged home on Augmentin. Continue transitional diet Change gauze dressing twice daily or more often if dressing becomes saturated Plan to replace packing tomorrow Hopeful discharge tomorrow pending progress Charges/Coding Visit Charges Inpatient E&M: 90534 Subs Hosp L1 (post-op; no charge)
[2024-01-15 08:30] VITALS: BP 111/60; PULSE 83; RESP 18; TEMP 36.7; O2SAT 99
[2024-01-15 09:05] LABS: ALB/GLOB Ratio 0.7 RATIO (0.9-2.4); AST(SGOT) 72 U/L (15-37); Alanine Aminotransfer ALT/SGPT 28 U/L (16-61); Albumin, Serum 2.3 g/dL (3.2-5.0); Alkaline Phosphatase 63 U/L (45-117); Anion Gap 7 (5-15); BUN 14 mg/dL (7-18); BUN/Creat Ratio 14.4 RATIO (10-20); Chloride 107 mmol/L (98-107); Creatinine, Serum 0.97 mg/dL (0.70-1.30); EST Glomerular Filtration Rate 90 mL/min (>60); Est Glom Filt Rate - Afr Amer 108 mL/min (>60); Estimated Creatinine Clearance 120.56 ml/min; Globulin 3.3 g/dL (2.2-4.2); Glucose 96 mg/dL (74-106); Magnesium 2.2 mg/dL (1.6-2.6); Phosphorus 2.5 mg/dL (2.5-4.9); Potassium 3.4 mmol/L (3.5-5.1); Protein, Total 5.6 g/dL (6.4-8.2); Sodium Level 138 mmol/L (136-145)
[2024-01-15] MEDS: Celecoxib 200 MG Capsule PO (10:36)
[2024-01-15] MEDS: Amox/Clavulanate 875 MG Tablet PO ×2 (10:36→21:52)
[2024-01-15] MEDS: Potassium Chloride Oral Tablet 20 MEQ 40 MEQ PO (10:41)
[2024-01-15 12:30] VITALS: BP 104/63; PULSE 96; RESP 18; TEMP 37.6; O2SAT 95
[2024-01-15] MEDS: Acetaminophen 500 MG Tablet 1000 MG PO (13:46)
[2024-01-15 17:30] VITALS: BP 127/67; PULSE 80; RESP 18; TEMP 36.6; O2SAT 100
[2024-01-15] MEDS: Tamsulosin HCl 0.4 MG Capsule PO (17:40)
[2024-01-15 21:37] VITALS: BP 104/64; PULSE 92; RESP 16; TEMP 37; O2SAT 98
[2024-01-15] MEDS: Acetaminophen 500 MG Tablet PO (21:52)
[2024-01-15] MEDS: Ensure Plus High Protein 120 ML LIQUID PO (21:52)
[2024-01-16 04:10] VITALS: BP 113/73; PULSE 84; RESP 16; TEMP 36.6; O2SAT 100
[2024-01-16] MEDS: Acetaminophen 500 MG Tablet PO ×2 (04:30→10:23)
[2024-01-16 07:33] LABS: Absolute Lymphocyte Count 1.19 X10^3/uL (0.83-4.51); Basophil# 0.08 X10^3/uL; Basophil% 0.8 % (0-1); Eosinophil# 0.82 X10^3/uL; Eosinophils% 7.9 % (0-5); Hematocrit 35.4 % (40-54); Hemoglobin 11.5 g/dL (13.0-16.5); Lymphocyte # 1.19 X10^3/ul (0.83-4.51); Lymphocyte % 11.5 % (19-41); Mean Corp Hgb Conc 32.5 g/dL (32-36); Mean Corpuscular Hgb 27.7 pg (27.0-32.0); Mean Corpuscular Volume 85.3 fL (80-94); Monocyte# 1.22 X10^3/uL; Monocyte% 11.8 % (0-10); NRBC Flagged by Analyzer 0 % (0-5); Neutrophil # 7.02 X10^3/uL (2.7-7.7); Neutrophil % 67.5 % (47-70); Platelet Count 290 K/mm3 (150-450); RBC Distribution Width CV 12.5 % (11.6-14.6); RBC Distribution Width SD 38.5 fl (35.1-43.9); Red Blood Count 4.15 M/mm3 (4.6-6.2); White Blood Count 10.4 K/mm3 (4.4-11.0)
[2024-01-16 08:09] LABS: ALB/GLOB Ratio 0.7 RATIO (0.9-2.4); AST(SGOT) 85 U/L (15-37); Alanine Aminotransfer ALT/SGPT 44 U/L (16-61); Albumin, Serum 2.3 g/dL (3.2-5.0); Alkaline Phosphatase 70 U/L (45-117); Anion Gap 7 (5-15); BUN 11 mg/dL (7-18); BUN/Creat Ratio 13.2 RATIO (10-20); Calcium,Total 8.5 mg/dL (8.5-10.1); Chloride 108 mmol/L (98-107); Creatinine, Serum 0.83 mg/dL (0.70-1.30); EST Glomerular Filtration Rate 107 mL/min (>60); Est Glom Filt Rate - Afr Amer 129 mL/min (>60); Estimated Creatinine Clearance 140.89 ml/min; Globulin 3.5 g/dL (2.2-4.2); Glucose 102 mg/dL (74-106); Magnesium 2.1 mg/dL (1.6-2.6); Phosphorus 2.7 mg/dL (2.5-4.9); Potassium 3.6 mmol/L (3.5-5.1); Protein, Total 5.8 g/dL (6.4-8.2); Sodium Level 141 mmol/L (136-145)
--- NOTE | 2024-01-16 08:36 | PCM.PN.SRG ---
Subjective Subjective Patient is a 43 y/o M I a following in conjunction with Dr. Hahn. Patient was started on Augmentin yesterday following draining of infected midline incision. Patient is unsure if Augmentin is now causing diarrhea. He is passing flatus and having loose diarrhea. He is tolerating his diet without any concerns. He denies any abdominal pain, minimal abdominal discomfort. He noted night sweats again over night. He has become a little more comfortable with dressing changes. Objective Data Objective Data Vital Signs: Vital Signs Temp Pulse Resp BP Pulse Ox O2 Del Method 97.8 F 84 16 113/73 100 Room Air 01/16/24 04:10 01/16/24 04:10 01/16/24 04:10 01/16/24 04:10 01/16/24 04:10 01/16/24 04:10 Oxygen Delivery Method Room Air Weight: 221 lb Body Mass Index (BMI) 26.9 Intake & Output: Intake and Output for Last 24 Hours 01/14/24 01/15/24 01/16/24 23:59 23:59 23:59 Intake Total 2160 / 2410 4472.0 / 4872.0 1100 / 1100 Output Total 600 / 600 Balance 2160 / 2410 3872.0 / 4272.0 1100 / 1100 Lab / Micro Data 01/16/24 06:18 01/16/24 06:18 Labs: Laboratory Results - last 24 hr 01/15/24 06:28: Sodium 138, Potassium 3.4 L, Chloride 107, Carbon Dioxide 24.0, Anion Gap 7, BUN 14, Creatinine 0.97, Estim Creat Clear Calc 120.56, Est GFR (MDRD) Af Amer 108, Est GFR (MDRD) Non-Af 90, BUN/Creatinine Ratio 14.4, Glucose 96, Calcium 8.0 L, Phosphorus 2.5, Magnesium 2.2, Total Bilirubin 1.40 H, AST 72 H, ALT 28, Alkaline Phosphatase 63, Total Protein 5.6 L, Albumin 2.3 L, Globulin 3.3, Albumin/Globulin Ratio 0.7 L 01/16/24 06:18: WBC 10.4, RBC 4.15 L, Hgb 11.5 L, Hct 35.4 L, MCV 85.3, MCH 27.7, MCHC 32.5, RDW Std Deviation 38.5, RDW Coeff of Khadijah 12.5, Plt Count 290, MPV 11.0, Immature Gran % (Auto) 0.500, Neut % (Auto) 67.5, Lymph % (Auto) 11.5 L, [place] % (Auto) 11.8 H, Eos % (Auto) 7.9 H, Baso % (Auto) 0.8, Absolute Neuts (auto) 7.0, Absolute Lymphs (auto) 1.19, Nucleated RBC % 0, Sodium 141, Potassium 3.6, Chloride 108 H, Carbon Dioxide 26.0, Anion Gap 7, BUN 11, Creatinine 0.83, Estim Creat Clear Calc 140.89, Est GFR (MDRD) Af Amer 129, Est GFR (MDRD) Non-Af 107, BUN/Creatinine Ratio 13.2, Glucose 102, Calcium 8.5, Phosphorus 2.7, Magnesium 2.1, Total Bilirubin 1.20 H, AST 85 H, ALT 44, Alkaline Phosphatase 70, Total Protein 5.8 L, Albumin 2.3 L, Globulin 3.5, Albumin/Globulin Ratio 0.7 L Micro: Microbiology 01/15/24 08:00 Incision/Surgical Site Gram Stain - Final 01/10/24 20:06 Stool Stool Lactoferrin - Final 01/10/24 20:06 Stool Enteric Bacteriology - Final 01/10/24 20:06 Stool Clostridioides difficile (PCR) - Final Physical Exam GI GI Narrative: Abdomen- soft, minimal amount of tenderness. Midline incision with moderate amount of bloody purulent material on the dressing. Packing was removed. ABD dressing was reapplied until patient obtains shower. Remaining incisions c/d/i. Positive bowel sounds. Assessment & Plan Assessment/Plan (1) Ileocolic intussusception: (2) Infection following a procedure, deep incisional surgical site, initial encounter: PLAN: Plan I have evaluated this patient in conjunction with Dr. Hahn. He has independently evaluated this patient. Plan to demonstrate packing change with Continue oral Augmentin Await wound culture Continue transitional diet Plan for discharge later today Pathology results pending Continue to change dressing twice daily or more often if needed Charges/Coding Visit Charges Inpatient E&M: 51329 Subs Hosp L1 (no charge; post-op)
--- NOTE | 2024-01-16 09:20 | PCM.DC.SUM ---
Providers Date of Admission: 01/11/24 Primary Care Physician: Dr. Marcellus Oakes MD Reason For Visit: ILEOCECAL INTUSSUSCEPTION Diagnosis Discharge Diagnosis (1) Ileocolic intussusception: Status: Acute Code(s): K56.1 - Intussusception (2) Infection following a procedure, deep incisional surgical site, initial encounter: Status: Acute Code(s): T81.42XA - Infection following a procedure, deep incisional surgical site, initial encounter Plan I have evaluated this patient in conjunction with Dr. Hahn. He has independently evaluated this patient. Plan to demonstrate packing change with Continue oral Augmentin Await wound culture Continue transitional diet Plan for discharge later today Pathology results pending Continue to change dressing twice daily or more often if needed Medications at Discharge Home Medications acetaminophen 500 mg tablet 500 mg PO Q6H PRN PRN Pain 1-10 Or Fever #0 tabs 01/16/24 amoxicillin 875 mg-potassium clavulanate 125 mg tablet 1 tab PO BID 9 days #18 tabs 01/16/24 celecoxib 200 mg capsule 200 mg PO DAILY 7 days #7 caps 01/16/24 oxycodone 5 mg tablet 5 mg PO Q6H PRN PRN Pain Score 4-10 2 days #6 tabs 01/16/24 Hospital Course Operations - (Hand-assisted laparoscopic right hemicolectomy) Summary of Care Provided Minutes Spent on Discharge: 35 Hospital Course: Patient is a 43 y/o M who presented to the ED with an acute onset of abdominal pain with bright red blood following a bowel movement. CT scan of the ab/pel demonstrated intussusception of the ileocecal valve extending to the mid transverse colon. Dr. Hahn performed a Hand-assisted laparoscopic right hemicolectomy on 01/11/24. Patient tolerated the procedure well. On POD #4, patient was noted to have blanching erythema surrounding the midline incision. Patient's incision was opened at bedside and revealed a brown, purulent material with a foul smell coming from the incision. Drain was cultured and sent to microbiology. Results are pending. Patient was placed on Augmentin. He notes he has been having loose stools. He notes having night sweats as well. Upon discharge, patient's was shown how to pack the incision and place gauze dressing over top of the incision. Patient notes he is tolerating a transitional diet well. He denies nausea, vomiting. He is passing flatus. He will have a short follow-up on Saturday for wound evaluation. Weight / BMI Weight Weight: 221 lb Body Mass Index (BMI) 26.9 ABG / Lab / Microbiology Data 01/16/24 06:18 01/16/24 06:18 Laboratory: Laboratory Results - last 24 hr 01/16/24 06:18: WBC 10.4, RBC 4.15 L, Hgb 11.5 L, Hct 35.4 L, MCV 85.3, MCH 27.7, MCHC 32.5, RDW Std Deviation 38.5, RDW Coeff of Khadijah 12.5, Plt Count 290, MPV 11.0, Immature Gran % (Auto) 0.500, Neut % (Auto) 67.5, Lymph % (Auto) 11.5 L, [place] % (Auto) 11.8 H, Eos % (Auto) 7.9 H, Baso % (Auto) 0.8, Absolute Neuts (auto) 7.0, Absolute Lymphs (auto) 1.19, Nucleated RBC % 0, Sodium 141, Potassium 3.6, Chloride 108 H, Carbon Dioxide 26.0, Anion Gap 7, BUN 11, Creatinine 0.83, Estim Creat Clear Calc 140.89, Est GFR (MDRD) Af Amer 129, Est GFR (MDRD) Non-Af 107, BUN/Creatinine Ratio 13.2, Glucose 102, Calcium 8.5, Phosphorus 2.7, Magnesium 2.1, Total Bilirubin 1.20 H, AST 85 H, ALT 44, Alkaline Phosphatase 70, Total Protein 5.8 L, Albumin 2.3 L, Globulin 3.5, Albumin/Globulin Ratio 0.7 L Microbiology: Microbiology 01/15/24 08:00 Incision/Surgical Site Gram Stain - Final 01/10/24 20:06 Stool Stool Lactoferrin - Final 01/10/24 20:06 Stool Enteric Bacteriology - Final 01/10/24 20:06 Stool Clostridioides difficile (PCR) - Final D/C Instructions Discharge Diet: - (Transitional diet; recommendations provided; Yogurt- So delicious has probiotic) Lifting Restrictions: 10-15 pounds for 4 weeks Call your doctor if your incision/area has: Increased Pain/ Swelling Call your doctor if you observe: Fever of 101 or Higher Suture Line Care: Avoid Pulling/Pushing and Avoid Pinching/Bending Additional Dressing/Incision Instructions: Recommend removing packing and replacing the packing daily after your shower. Place dry gauze and ABD over top of the incision twice daily or more often if needed. Additional Instructions: You were prescribed Augmentin. You will want to eat prior to taking this medication to help coat your stomach. Some recommendations would be the So delicious yogurt or a piece of dark chocolate. Please Follow Up With: Trevor Hahn MD When: On Saturday, 01/19 at 11:00 AM. Please call our office at [phone] if any questions or concerns. Meaningful Use Info Meaningful Use Diagnoses (Choose all that apply): None applicable Discharge Plan Admission Admit Date/Time: 01/11/24 04:00 Primary Reason for Your Visit: Ileocolic intussusception Attending Provider: Trevor Hahn Primary Care Provider: Marcellus Oakes Instructions Additional Instructions / Restrictions: Colectomy Diet ? Start light with soups and soft bland foods. Refer to your transitional diet instruction sheet Activity ? You may drive in 3-5 days but not while taking narcotic pain medication. ? I encourage walking. You may go up steps, one at a time. ? Do not swim or use hot tubs for 2 weeks. Lifting ? You may lift up to 10-15 pounds for 4 weeks. Dressings/Incision ? You may shower OVER your steri-strips as normal. Steri-strips will be removed at your 1st follow-up visit. ? Do NOT tub bathe for 1 week ? Recommend removing and replacing the packing once a day. Replace gauze dressing and ABD pad twice daily or more often if the gauze has drainage on the dressing. Medications ? Anesthesia used during surgery and pain medications may cause constipation. I recommend initiating on the day of surgery a fiber supplement like, Metamucil, Citrucel, FiberCon, Benefiber, or a generic form of these medications. 1 heaping tablespoon in water daily. You may continue to utilize any bowel regimen or oral laxatives that you routinely take. ? As long as you are not intolerant to Tylenol, acetaminophen, ibuprofen, Motrin, Advil, Aleve, or similar medications, I would recommend transitioning to these [id number] medicines as soon as possible instead of continued use of narcotic pain medication. Follow up ? You should call [facility] soon after surgery, at [phone] option 1 to make a follow up appointment for 6 days and another one in 14 days after your surgery. Transitional Diet Beverages: ? Soda (cola, diet cola, lemon-gambell, diet lemon-gambell, tevin reymundo, diet tevin reymundo) ? Tea (hot or iced) ? Milk (low-fat, 2%, lactose free) ? Coffee ? Juice (without pulp) ? Oral Nutrition supplement Breakfast: ? Hot cereal (oatmeal or cream of wheat) ? Scrambled eggs ? Blueberry muffin ? Cold cereal (no whole grain cereals) ? Mcdonough (white) Lunch or Dinner: Deli Items: Hot Items: Fraser sandwich Roast Fraser Tuna salad (sandwich or alone) Macaroni & Cheese Egg salad (sandwich or alone) Mashed potatoes & gravy Chicken salad (sandwich or alone) Carrots Green beans Cold Sides Cottage cheese Yogurt- So Delicious and Silk brands any flavor (diary free and this brand has active probiotic cultures) Hardboiled egg Dessert: ? Gelatin, pudding, side kick (juice slushie) Discharge Orders/Prescriptions Prescriptions: New amoxicillin-pot clavulanate 875-125 mg Tablet 1 tab PO BID 9 Days Qty: 18 0RF celecoxib 200 mg Capsule 200 mg PO DAILY 7 Days Qty: 7 0RF acetaminophen 500 mg Tablet 500 mg PO Q6H PRN PRN (Reason: Pain 1-10 Or Fever) Qty: 0 0RF oxycodone 5 mg Tablet 5 mg PO Q6H PRN PRN (Reason: Pain Score 4-10) 2 Days Qty: 6 0RF Referrals / Follow Up: Marcellus Oakes MD [Primary Care Provider] - Trevor Hahn MD [Med Staff - Active Staff] - 01/20/24 11:00 am (This will be a wound check. Please call our office if you have any questions.) Disposition Disposition (needs filled in before D/C Order can be placed): Home, Self Care Charges/Coding Visit Charges Inpatient E&M: 22899 Disch Hosp >30min (no charge; post-op)
[2024-01-16 10:00] VITALS: BP 111/69; PULSE 89; RESP 16; TEMP 36.9; O2SAT 100
[2024-01-16] MEDS: Celecoxib 200 MG Capsule PO (10:21)
[2024-01-16] MEDS: Amox/Clavulanate 875 MG Tablet PO (10:21)
--- NOTE | 2024-01-16 12:28 | CASEMGMT ---
ADDI CM into pt room, pt sitting up in bed in no distress. Pt states his did well with changing the wound this morning and he feels comfortable with her doing it at home. Pt denies any homegoing needs. He is going to borrow a wedge from family member to put in his bed to prop him up. Pt is ready for dc today.
[2024-01-16 13:36] VITALS: BP 118/73; PULSE 86; RESP 16; TEMP 36.5; O2SAT 98
== END 2024-01-16 14:26 | disposition home or self-care (01) | DRG 330 ==
LOC: ED 20:34 → MS3 01-11 00:04 → ED 01-14 13:38 → SDC 01-14 13:38
PROVIDERS: Physician Assistant; Admitting Provider Surgery; Emergency Provider Student in an Organized Health Care Education/Training Program; PCP Family Medicine; Visit Provider Surgery
PROC: 0DTF0ZZ Resection of Right Large Intestine, Open Approach (ICD-10-PCS; CPT 49320; principal; 2024-01-11)
DX: K56.1 Intussusception (principal); T81.42XA Infection following a procedure, deep incisional surgical site, initial encounter; R19.7 Diarrhea, unspecified; R33.9 Retention of urine, unspecified; Z53.31 Laparoscopic surgical procedure converted to open procedure; Y83.6 Removal of other organ (partial) (total) as the cause of abnormal reaction of the patient, or of later complication, without mention of misadventure at the time of the procedure; Y92.239 Unspecified place in hospital as the place of occurrence of the external cause
CPT/HCPCS: 36415; 74018; 74177; 80048; 80053; 82248; 83605; 83630; 83735; 84100; 85025; 87070; 87075; 87077; 87177; 87184; 87186; 87205; 87209; 87493; 87506; 88307; 94668; 99252; 99284; J7030; J7050; Q9967; A4216; G0463; J2405; J3490

== ENCOUNTER → 2024-01-17 | Outpatient (CLI) | payer BC, SELFPAY | END | disposition home or self-care (01) | LOC: LAB 13:14 | PROVIDERS: PCP Family Medicine; Referring Provider Surgery; Visit Provider Surgery | DX: K58.9 Irritable bowel syndrome, unspecified (principal) | CPT/HCPCS: 87506 ==

== ENCOUNTER 2024-01-18 17:32 | Inpatient (IN) | payer BC, SELFPAY ==
[2024-01-18] VITALS (10 sets, daily range): BP systolic 109–153; BP diastolic 66–79; PULSE 87–110; RESP 18–28; TEMP 37.1–38; O2SAT 95–100; BMI 27.2
--- NOTE | 2024-01-18 18:42 | EKG12_ITS ---
Test Reason : WOUND Blood Pressure : / mmHG Vent. Rate : 089 BPM Atrial Rate : 089 BPM P-R Int : 140 ms QRS Dur : 084 ms QT Int : 374 ms P-R-T Axes : 057 053 089 degrees QTc Int : 455 ms Normal sinus rhythm Nonspecific ST and T wave abnormality Abnormal ECG Confirmed by Trevor Barraza ([id number]), proposal editor OSCAR JAMESON ([id number]) on 01/21/2024 9:04:21 AM Referred By: SANAM Confirmed By:Trevor Barraza
--- NOTE | 2024-01-18 18:45 | EX.ED.DYSGE1 ---
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 Hahn on 01/11/2024. He went home on 01/16/24 on Augmentin. He states the abdominal incision culture results came back and they also added levofloxacin. Postop they left a small open wound on the upper abdomen covered with Steri-Strips and he has been changing the bandage once a day and today had yellow purulent drainage on the area. His abdominal pain was manageable with Tylenol but today he developed increased pain and a fever of 101F, chills, and fatigue. He has also been having frequent loose bowel movements. He states he went 11 times yesterday and 4 times today. Denies melena or hematochezia. PFSH <TRISTEN Moon - Last Filed: 01/18/24 21:32> [facility] Medical History (Updated 01/18/24 @ 20:58 by TRISTEN Moon) Collar bone fracture Home Medications acetaminophen 500 mg tablet 500 mg PO Q6H PRN PRN Pain 1-10 Or Fever #0 tabs 01/16/24 [Rx Last Taken Unknown] amoxicillin 875 mg-potassium clavulanate 125 mg tablet 1 tab PO BID atb 9 days #18 tabs 01/16/24 [Rx Last Taken Unknown] celecoxib 200 mg capsule 200 mg PO DAILY see md 7 days #7 caps 01/16/24 [Rx Last Taken Unknown] oxycodone 5 mg tablet 5 mg PO Q6H PRN PRN Pain Score 4-10 2 days #6 tabs 01/16/24 [Rx Last Taken Unknown] levofloxacin 750 mg tablet 750 mg PO DAILY atb #14 tabs 01/17/24 [Rx Last Taken Unknown] Allergy/AdvReac Type Severity Reaction Status Date / Time No Known Allergies Allergy Verified 01/18/24 17:41 Surgical History H/O hernia repair Social History Smoking Status: Never smoker ROS <TRISTEN Moon - Last Filed: 01/18/24 21:32> ROS ED ROS Narrative Constitutional: Positive for fever, chills, malaise. GI: Positive for abdominal pain, nausea, diarrhea. Negative for vomiting. : Negative for dysuria, hematuria or frequency. EXAM <TRISTEN Moon - Last Filed: 01/18/24 21:32> Physical Exam Narrative Exam Narrative: CONST: Patient appears ill and has chills. EYES: Normal inspection. NECK: Normal inspection. RESP: No respiratory distress, CTAB. CVS: Regular rate and rhythm, no murmur, no gallop. ABD: Soft with diffuse tenderness and voluntary guarding. Small upper abdominal midline incision has yellow purulent drainage. Steri-Strips intact. EXTREMITIES: Normal appearance, no pedal edema. NEURO: Alert and answering questions appropriately. PSYCH: Normal affect. Const Vital Signs: 01/18/24 17:34 01/18/24 18:33 01/18/24 19:00 Temperature 98.7 F 98.8 F Temperature Source Temporal Oral Pulse Rate 93 90 90 Respiratory Rate 18 28 H 18 Blood Pressure 109/66 153/79 H 125/70 H Blood Pressure Mean 80 103 88 Pulse Ox 100 98 98 Oxygen Delivery Method Room Air Room Air Room Air 01/18/24 19:01 01/18/24 18:42 01/18/24 18:40 Temperature 98.7 F Temperature Source Temporal Pulse Rate 87 88 Respiratory Rate 20 H 25 H Blood Pressure 125/70 H 125/70 H Blood Pressure Mean 88 88 Pulse Ox 100 98 Oxygen Delivery Method Room Air Room Air Room Air 01/18/24 19:57 01/18/24 20:44 01/18/24 20:44 Temperature 100.4 F H 100.4 F H 100.4 F H Temperature Source Oral Oral Oral Pulse Rate 92 110 H 110 H Respiratory Rate 26 H 19 H 19 H Blood Pressure 125/72 H 127/78 H 127/78 H Blood Pressure Mean 89 94 94 Pulse Ox 95 97 97 Oxygen Delivery Method Room Air Room Air Room Air <Dr. Nader Miller MD - Last Filed: 01/18/24 21:56> Physical Exam Const Vital Signs: 01/18/24 17:34 01/18/24 18:33 01/18/24 19:00 Temperature 98.7 F 98.8 F Temperature Source Temporal Oral Pulse Rate 93 90 90 Respiratory Rate 18 28 H 18 Blood Pressure 109/66 153/79 H 125/70 H Blood Pressure Mean 80 103 88 Pulse Ox 100 98 98 Oxygen Delivery Method Room Air Room Air Room Air 01/18/24 19:01 01/18/24 18:42 01/18/24 18:40 Temperature 98.7 F Temperature Source Temporal Pulse Rate 87 88 Respiratory Rate 20 H 25 H Blood Pressure 125/70 H 125/70 H Blood Pressure Mean 88 88 Pulse Ox 100 98 Oxygen Delivery Method Room Air Room Air Room Air 01/18/24 19:57 01/18/24 20:44 01/18/24 20:44 Temperature 100.4 F H 100.4 F H 100.4 F H Temperature Source Oral Oral Oral Pulse Rate 92 110 H 110 H Respiratory Rate 26 H 19 H 19 H Blood Pressure 125/72 H 127/78 H 127/78 H Blood Pressure Mean 89 94 94 Pulse Ox 95 97 97 Oxygen Delivery Method Room Air Room Air Room Air [facility] <TRISTEN Moon - Last Filed: 01/18/24 21:32> [facility] Narrative Medical decision making narrative: History gathered from: Patient and spouse Consults: General surgery Differential: Intra-abdominal abscess, pneumonia, UTI Patient is 1 week postop from laparoscopic right hemicolectomy for ileocecal intussusception. Today he developed a fever, chills, increased abdominal pain and purulent drainage from the open abdominal incision site. He has rigors on exam. He is afebrile with normal vital signs. He took Tylenol prior to arrival. Heart is regular and lungs are clear. Abdomen is significantly tender but not peritoneal. There is purulent drainage noted on the upper abdominal Steri-Strips. Sepsis workup was initiated with labs, blood cultures, and IV Zosyn ordered. WBC is 12.6, lactate 1.4. Normal electrolytes and renal function. There is mild elevation of LFTs with normal lipase. CT shows multiple suspected areas of phlegmon/developing abscess in the right side of the abdomen at the site of resection. 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 I consulted Dr. Garner who plans to take the patient to the OR and admit. External records reviewed: Surgical site incision culture on 01/18/2024 shows Enterococcus faecalis and Pseudomonas aeruginosa I have personally performed a face to face assessment of the patient and have reviewed the YAQUELIN Note. I performed a substantive portion of the visit including all aspects of the following. My spears findings include: History is history of intussusception. Patient was discharged on . There is an area that was left open. was to change the dressing daily. She states this morning the color of the drainage was different. Appears purulent. He had shaking chills at home and fever. He reports not feeling well. Does feel nauseous. Does complain of increased abdominal pain as well. Exam is patient appears ill. His vital signs are unremarkable, however. He does appear flushed. HEENT exam is remarkable dry mucosa. Heart is regular. Rate is normal. No murmur, gallop or rub. Lungs reveal symmetric breath sounds with no abnormal breath sounds. Abdomen is firm with significant tenderness there is purulent drainage noted. There is slight erythema along the incision region. He has guarding. There is tympany to percussion question of percussion tenderness. Bowel sounds are diminished. He is alert oriented x 3. Medical Decision Making concern patient has postop infection with documented fever at home with chills. CT of the abdomen was obtained. Appropriate workup was undertaken which included blood work and blood cultures prior to administration of Zosyn. Will obtain CT of the abdomen to determine if there is an intra-abdominal abscess to explain the drainage and significant tenderness. Case will be discussed with surgeon on-call who assisted Dr. Hahn. Other additions or changes: [None] Lab Data Labs: Laboratory Results - last 24 hr 01/18/24 01/18/24 01/18/24 18:40 18:41 20:00 WBC 12.6 H RBC 5.03 Hgb 14.0 Hct 43.2 MCV 85.9 MCH 27.8 MCHC 32.4 RDW Std Deviation 39.0 RDW Coeff of Khadijah 12.5 Plt Count 421 MPV 9.8 Immature Gran % (Auto) 1.500 H Neut % (Auto) 82.4 H Lymph % (Auto) 6.2 L Forest % (Auto) 8.0 Eos % (Auto) 1.0 Baso % (Auto) 0.9 Absolute Neuts (auto) 10.4 H Absolute Lymphs (auto) 0.78 L Nucleated RBC % 0 PT Cancelled 16.2 H INR Cancelled 1.3 APTT Cancelled 37.2 H Sodium 135 L Potassium 4.3 Chloride 104 Carbon Dioxide 23.0 Anion Gap 8 BUN 9 Creatinine 0.94 Estim Creat Clear Calc 124.40 Est GFR (MDRD) Af Amer 113 Est GFR (MDRD) Non-Af 93 BUN/Creatinine Ratio 9.6 L Glucose 114 H Lactic Acid 1.4 Calcium 8.9 Total Bilirubin 1.10 H AST 92 H ALT 124 H Alkaline Phosphatase 121 H Total Protein 6.9 Albumin 2.7 L Globulin 4.2 Albumin/Globulin Ratio 0.6 L Lipase 29 Urine Color Urine Clarity Urine pH Ur Specific [place] Urine Protein Urine Glucose (UA) Urine Ketones Urine Occult Blood Urine Nitrite Urine Bilirubin Urine Urobilinogen Ur Leukocyte Esterase Urine RBC Urine WBC Ur Squamous Epith Cells Urine Bacteria Urine Mucus 01/18/24 20:44 WBC RBC Hgb Hct MCV MCH MCHC RDW Std Deviation RDW Coeff of Khadijah Plt Count MPV Immature Gran % (Auto) Neut % (Auto) Lymph % (Auto) Forest % (Auto) Eos % (Auto) Baso % (Auto) Absolute Neuts (auto) Absolute Lymphs (auto) Nucleated RBC % PT INR APTT Sodium Potassium Chloride Carbon Dioxide Anion Gap BUN Creatinine Estim Creat Clear Calc Est GFR (MDRD) Af Amer Est GFR (MDRD) Non-Af BUN/Creatinine Ratio Glucose Lactic Acid Calcium Total Bilirubin AST ALT Alkaline Phosphatase Total Protein Albumin Globulin Albumin/Globulin Ratio Lipase Urine Color Yellow Urine Clarity Clear Urine pH 6.0 Ur Specific [place] 1.015 Urine Protein 15 H Urine Glucose (UA) Normal Urine Ketones 5 H Urine Occult Blood Negative Urine Nitrite Negative Urine Bilirubin Negative Urine Urobilinogen Normal Ur Leukocyte Esterase Negative Urine RBC 0 SEEN Urine WBC 0 SEEN Ur Squamous Epith Cells 0 SEEN Urine Bacteria 0 SEEN Urine Mucus 0 SEEN Radiography Diagnostic Testing: Clinical Impression(s) from Imaging Studies Abdomen/Pelvis CT 01/18/24 19:08 IMPRESSION: 1. Interval recent right hemicolectomy with multiple suspected areas of phlegmon/developing abscesses in the right side of the retroperitoneum at the site of resection of the ascending colon. 2. Small amount of free fluid in the pelvis. 3. 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 4. Small bilateral pleural effusions with some bibasilar atelectasis. Electronically Signed: Chidi Carvajal MD at 20:43 EDT Reading Location ID and State: [id number] / [employer] , Service support , ADDENDUM: 01/18/24 2100 IMPRESSION: 1. Interval recent right hemicolectomy with multiple suspected areas of phlegmon/developing abscesses in the right side of the retroperitoneum at the site of resection of the ascending colon. 2. Small amount of free fluid in the pelvis. 3. 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 4. Small bilateral pleural effusions with some bibasilar atelectasis. N.B. : The above Results were Read Back by Chidi Carvajal MD to TRISTEN Moon, and understanding confirmed on 01/18/2024 20:53:10 (ET). Electronically Signed: Chidi Carvajal MD at 20:43 EDT Reading Location ID and State: [id number] / [employer] , Service support , Chest X-Ray 01/18/24 19:25 IMPRESSION: No active disease. Electronically Signed: Chidi Carvajal MD at 19:57 EDT Reading Location ID and State: [id number] / [employer] , Service support , <Dr. 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 Today he developed a fever, chills, increased abdominal pain and purulent drainage from the open abdominal incision site. He has rigors on exam. He is afebrile with normal vital signs. He took Tylenol prior to arrival. Heart is regular and lungs are clear. Abdomen is significantly tender but not peritoneal. There is purulent drainage noted on the upper abdominal Steri-Strips. Sepsis workup was initiated with labs, blood cultures, and IV Zosyn ordered. WBC is 12.6, lactate 1.4. Normal electrolytes and renal function. There is mild elevation of LFTs with normal lipase. CT shows multiple suspected areas of phlegmon/developing abscess in the right side of the abdomen at the site of resection. 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 I consulted Dr. Garner who plans to take the patient to the OR and admit. External records reviewed: Surgical site incision culture on 01/18/2024 shows Enterococcus faecalis and Pseudomonas aeruginosa I have personally performed a face to face assessment of the patient and have reviewed the YAQUELIN Note. I performed a substantive portion of the visit including all aspects of the following. My spears findings include: History is history of intussusception. Patient was discharged on . There is an area that was left open. was to change the dressing daily. She states this morning the color of the drainage was different. Appears purulent. He had shaking chills at home and fever. He reports not feeling well. Does feel nauseous. Does complain of increased abdominal pain as well. Exam is patient appears ill. His vital signs are unremarkable, however. He does appear flushed. HEENT exam is remarkable dry mucosa. Heart is regular. Rate is normal. No murmur, gallop or rub. Lungs reveal symmetric breath sounds with no abnormal breath sounds. Abdomen is firm with significant tenderness there is purulent drainage noted. There is slight erythema along the incision region. He has guarding. There is tympany to percussion question of percussion tenderness. Bowel sounds are diminished. He is alert oriented x 3. Medical Decision Making concern patient has postop infection with documented fever at home with chills. CT of the abdomen was obtained. Appropriate workup was undertaken which included blood work and blood cultures prior to administration of Zosyn. Will obtain CT of the abdomen to determine if there is an intra-abdominal abscess to explain the drainage and significant tenderness. Case will be discussed with surgeon on-call who assisted Dr. Hahn. Other additions or changes: Plan is OR. Dr. Gonzales was made aware of the thrombus in the superior mesenteric vein that was noted by radiologist. Lab Data Labs: Laboratory Results - last 24 hr 01/18/24 01/18/24 01/18/24 18:40 18:41 20:00 WBC 12.6 H RBC 5.03 Hgb 14.0 Hct 43.2 MCV 85.9 MCH 27.8 MCHC 32.4 RDW Std Deviation 39.0 RDW Coeff of Khadijah 12.5 Plt Count 421 MPV 9.8 Immature Gran % (Auto) 1.500 H Neut % (Auto) 82.4 H Lymph % (Auto) 6.2 L [place] % (Auto) 8.0 Eos % (Auto) 1.0 Baso % (Auto) 0.9 Absolute Neuts (auto) 10.4 H Absolute Lymphs (auto) 0.78 L Nucleated RBC % 0 PT Cancelled 16.2 H INR Cancelled 1.3 APTT Cancelled 37.2 H Sodium 135 L Potassium 4.3 Chloride 104 Carbon Dioxide 23.0 Anion Gap 8 BUN 9 Creatinine 0.94 Estim Creat Clear Calc 124.40 Est GFR (MDRD) Af Amer 113 Est GFR (MDRD) Non-Af 93 BUN/Creatinine Ratio 9.6 L Glucose 114 H Lactic Acid 1.4 Calcium 8.9 Total Bilirubin 1.10 H AST 92 H ALT 124 H Alkaline Phosphatase 121 H Total Protein 6.9 Albumin 2.7 L Globulin 4.2 Albumin/Globulin Ratio 0.6 L Lipase 29 Urine Color Urine Clarity Urine pH Ur Specific [place] Urine Protein Urine Glucose (UA) Urine Ketones Urine Occult Blood Urine Nitrite Urine Bilirubin Urine Urobilinogen Ur Leukocyte Esterase Urine RBC Urine WBC Ur Squamous Epith Cells Urine Bacteria Urine Mucus 01/18/24 20:44 WBC RBC Hgb Hct MCV MCH MCHC RDW Std Deviation RDW Coeff of Khadijah Plt Count MPV Immature Gran % (Auto) Neut % (Auto) Lymph % (Auto) [place] % (Auto) Eos % (Auto) Baso % (Auto) Absolute Neuts (auto) Absolute Lymphs (auto) Nucleated RBC % PT INR APTT Sodium Potassium Chloride Carbon Dioxide Anion Gap BUN Creatinine Estim Creat Clear Calc Est GFR (MDRD) Af Amer Est GFR (MDRD) Non-Af BUN/Creatinine Ratio Glucose Lactic Acid Calcium Total Bilirubin AST ALT Alkaline Phosphatase Total Protein Albumin Globulin Albumin/Globulin Ratio Lipase Urine Color Yellow Urine Clarity Clear Urine pH 6.0 Ur Specific [place] 1.015 Urine Protein 15 H Urine Glucose (UA) Normal Urine Ketones 5 H Urine Occult Blood Negative Urine Nitrite Negative Urine Bilirubin Negative Urine Urobilinogen Normal Ur Leukocyte Esterase Negative Urine RBC 0 SEEN Urine WBC 0 SEEN Ur Squamous Epith Cells 0 SEEN Urine Bacteria 0 SEEN Urine Mucus 0 SEEN Radiography Diagnostic Testing: Clinical Impression(s) from Imaging Studies Abdomen/Pelvis CT 01/18/24 19:08 IMPRESSION: 1. Interval recent right hemicolectomy with multiple suspected areas of phlegmon/developing abscesses in the right side of the retroperitoneum at the site of resection of the ascending colon. 2. Small amount of free fluid in the pelvis. 3. 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 4. Small bilateral pleural effusions with some bibasilar atelectasis. Electronically Signed: Chidi Carvajal MD at 20:43 EDT Reading Location ID and State: [id number] / [employer] , Service support , ADDENDUM: 01/18/24 2100 IMPRESSION: 1. Interval recent right hemicolectomy with multiple suspected areas of phlegmon/developing abscesses in the right side of the retroperitoneum at the site of resection of the ascending colon. 2. Small amount of free fluid in the pelvis. 3. 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 4. Small bilateral pleural effusions with some bibasilar atelectasis. N.B. : The above Results were Read Back by Chidi Carvajal MD to TRISTEN Moon, and understanding confirmed on 01/18/2024 20:53:10 (ET). Electronically Signed: Chidi Carvajal MD at 20:43 EDT Reading Location ID and State: [facility] / [employer] , Service support , Chest X-Ray 01/18/24 19:25 IMPRESSION: No active disease. Electronically Signed: Chidi Carvajal MD at 19:57 EDT Reading Location ID and State: [id number] / [employer] , Service support , Discharge Plan Dx/Rx/DC Orders Clinical Impression: Abscess, intra-abdominal, postoperative, Sepsis without acute organ dysfunction, Superior mesenteric vein thrombosis Disposition Disposition: [facility]
[2024-01-18] MEDS: Ondansetron 4 MG/2 ML Vial IV ×2 (18:49→21:43)
[2024-01-18] MEDS: 0.9% Normal Saline (1000mL) 1,000 ML 999 ML IV (18:49)
[2024-01-18] MEDS: Morphine 4 MG/ML Syringe IV (18:49)
[2024-01-18 18:55] LABS: Absolute Lymphocyte Count 0.78 X10^3/uL (0.83-4.51); Absolute Neutrophil Count 10.4 X10^3/uL (2.0-7.7); Basophil# 0.11 X10^3/uL; Basophil% 0.9 % (0-1); Eosinophil# 0.13 X10^3/uL; Hematocrit 43.2 % (40-54); Lymphocyte # 0.78 X10^3/ul (0.83-4.51); Lymphocyte % 6.2 % (19-41); Mean Corp Hgb Conc 32.4 g/dL (32-36); Mean Corpuscular Hgb 27.8 pg (27.0-32.0); Mean Corpuscular Volume 85.9 fL (80-94); Mean Platelet Vol. 9.8 fl (6.2-12.0); Monocyte# 1.01 X10^3/uL; NRBC Flagged by Analyzer 0 % (0-5); Neutrophil # 10.35 X10^3/uL (2.7-7.7); Neutrophil % 82.4 % (47-70); Platelet Count 421 K/mm3 (150-450); RBC Distribution Width CV 12.5 % (11.6-14.6); Red Blood Count 5.03 M/mm3 (4.6-6.2); White Blood Count 12.6 K/mm3 (4.4-11.0)
--- NOTE | 2024-01-18 19:08 | CT_ITS ---
We are attempting to reach an attending provider to discuss findings. An addendum with communication details will be sent when the communication is complete. STUDY: CT ABDOMEN AND PELVIS WITH CONTRAST REASON FOR EXAM: Male, 43 years old. post op pain RADIATION DOSAGE (If Supplied By Facility): CTDIvol = ( 13.45 ) mGy, DLP = ( 1116.33 ) mGycm TECHNIQUE: Transaxial images were obtained from the dome of the diaphragm to the symphysis pubis without oral contrast. IV 100mL Isovue-370 was administered. Sagittal and coronal images were reconstructed. Individualized dose optimization techniques were used for this CT. COMPARISON: 01/10/2024 FINDINGS: Tiny bilateral pleural effusions with some bibasilar atelectasis. The visualized portions of the heart are within normal limits. Normal liver. Normal gallbladder and extrahepatic biliary system. Normal spleen. Normal pancreas. Normal bilateral adrenal glands. Normal right kidney. Normal left kidney. Normal visualized stomach. Normal small intestine. Status post interval recent right hemicolectomy with an ileocolonic anastomosis in the right side of the abdomen at the level of the umbilicus. There are multiple collections of fluid and gas at the site of resection in the right side of the retroperitoneum worrisome for areas of phlegmon/developing abscesses. Measures 3.5 cm anterior to the right psoas muscle and 3.5 cm of lateral to the right psoas muscle. Normal abdominal aorta. Normal inferior vena cava. Furthermore, there is a filling defect within the mid superior mesenteric vein worrisome for partial thrombosis. Normal urinary bladder. Small amount of free fluid in the pelvis. Normal abdominal wall. Normal osseous structures. CT/Abdomen/Pelvis W IV Cont ONLY IMPRESSION: 1. Interval recent right hemicolectomy with multiple suspected areas of phlegmon/developing abscesses in the right side of the retroperitoneum at the site of resection of the ascending colon. 2. Small amount of free fluid in the pelvis. 3. 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 4. Small bilateral pleural effusions with some bibasilar atelectasis. Electronically Signed: Chidi Carvajal MD at 20:43 EDT ,
[2024-01-18 19:17] LABS: ALB/GLOB Ratio 0.6 RATIO (0.9-2.4); AST(SGOT) 92 U/L (15-37); Alanine Aminotransfer ALT/SGPT 124 U/L (16-61); Albumin, Serum 2.7 g/dL (3.2-5.0); Alkaline Phosphatase 121 U/L (45-117); Anion Gap 8 (5-15); BUN 9 mg/dL (7-18); BUN/Creat Ratio 9.6 RATIO (10-20); Calcium,Total 8.9 mg/dL (8.5-10.1); Chloride 104 mmol/L (98-107); Creatinine, Serum 0.94 mg/dL (0.70-1.30); EST Glomerular Filtration Rate 93 mL/min (>60); Est Glom Filt Rate - Afr Amer 113 mL/min (>60); Globulin 4.2 g/dL (2.2-4.2); Glucose 114 mg/dL (74-106); Potassium 4.3 mmol/L (3.5-5.1); Protein, Total 6.9 g/dL (6.4-8.2); Sodium Level 135 mmol/L (136-145)
[2024-01-18 19:19] LABS: Lactic Acid 1.4 mmol/L (0.4-1.9)
--- NOTE | 2024-01-18 19:25 | RAD_ITS ---
STUDY: X-RAY CHEST REASON FOR EXAM: Male, 43 years old. fever TECHNIQUE: Single AP portable view of the chest. COMPARISON: 09/10/2021 FINDINGS: The lungs are clear and expanded. There is no demonstrated pleural abnormality. Normal size heart. Normal mediastinum and lucie. Normal visualized pulmonary arteries. Normal visualized aortic arch and descending thoracic aorta. Normal visualized thoracic spine. Healed fracture of the left clavicle with a superior plate and screws. There is no demonstrated abnormality of the visualized soft tissue structures of the upper abdomen. RAD/Chest 1 View (Portable) IMPRESSION: No active disease. Electronically Signed: Chidi Carvajal MD at 19:57 EDT ,
[2024-01-18] MEDS: Piperacil/Tazobactam 3.375 GM in 0.9% Normal Saline (50mL MB+) 50 ML IV (19:56)
[2024-01-18 20:02] LABS: Lipase 29 U/L (13-75)
[2024-01-18 20:18] LABS: International Normalized Ratio 1.3; Prothrombin Time (Protime)PT. 16.2 SECONDS (11.7-14.9)
[2024-01-18 20:19] LABS: Partial Thromboplast Time 37.2 Seconds (24.1-36.2)
[2024-01-18] MEDS: Acetaminophen 650 MG Suppository RC (20:37)
--- NOTE | 2024-01-18 20:38 | PCM.HP.STD ---
HPI - General General Date of Admission: 01/18/24 HPI Narrative TERRIE ALLEN, is a 43 M who presents to the ER due to fever of 101.5 at home. Patient status post right hemicolectomy due to ileocolic intussusception due to inflammatory polyp per pathology by Dr. Hahn a week ago. Patient did have a wound infection after surgery and was on antibiotics. Patient's and his states that his drainage was previously like a clear orange color but this morning it was more purulent. Patient was also not feeling as well and having more abdominal pain which she was not really having and was controlled with Tylenol previously. Patient CT abdomen pelvis which is not currently red but shows an abscess near the anastomosis, fluid in the pelvis. Patient's temperature in the ER was 100.4, leukocytosis of 12, elevated LFTs?unsure etiology. Patient was given Zosyn in the ER. Patient did have diarrhea yesterday by 11 times did have enteric pathogens checked at that time which were negative. Patient states she only had diarrhea or loose stools 4 times today. Patient states he last ate at noon and really did not feel much like eating today. [facility] Medical History (Updated 01/18/24 @ 20:[address] Veronica Garner MD) Collar bone fracture Home Medications acetaminophen 500 mg tablet 500 mg PO Q6H PRN PRN Pain 1-10 Or Fever #0 tabs 01/16/24 [Rx Last Taken Unknown] amoxicillin 875 mg-potassium clavulanate 125 mg tablet 1 tab PO BID 9 days #18 tabs 01/16/24 [Rx Last Taken Unknown] celecoxib 200 mg capsule 200 mg PO DAILY 7 days #7 caps 01/16/24 [Rx Last Taken Unknown] oxycodone 5 mg tablet 5 mg PO Q6H PRN PRN Pain Score 4-10 2 days #6 tabs 01/16/24 [Rx Last Taken Unknown] levofloxacin 750 mg tablet 750 mg PO DAILY #14 tabs 01/17/24 [Rx Last Taken Unknown] Allergy/AdvReac Type Severity Reaction Status Date / Time No Known Allergies Allergy Verified 01/18/24 17:41 Surgical History H/O hernia repair Social History Smoking Status: Never smoker Vital Signs Vital Signs Vital Signs: 01/18/24 17:34 01/18/24 18:33 01/18/24 19:00 Temperature 98.7 F 98.8 F Temperature Source Temporal Oral Pulse Rate 93 90 90 Respiratory Rate 18 28 H 18 Blood Pressure 109/66 153/79 H 125/70 H Blood Pressure Mean 80 103 88 Pulse Ox 100 98 98 Oxygen Delivery Method Room Air Room Air Room Air 01/18/24 19:01 01/18/24 18:42 01/18/24 18:40 Temperature 98.7 F Temperature Source Temporal Pulse Rate 87 88 Respiratory Rate 20 H 25 H Blood Pressure 125/70 H 125/70 H Blood Pressure Mean 88 88 Pulse Ox 100 98 Oxygen Delivery Method Room Air Room Air Room Air 01/18/24 19:57 Temperature 100.4 F H Temperature Source Oral Pulse Rate 92 Respiratory Rate 26 H Blood Pressure 125/72 H Blood Pressure Mean 89 Pulse Ox 95 Oxygen Delivery Method Room Air Weight Weight: 223 lb 15.834 oz Body Mass Index (BMI) 27.2 Physical Exam Const oriented x3 General Appearance: ill appearing Resp normal respiratory effort Cardio regular rate GI GI Narrative: Soft, tender midline, midline incision with purulent drainage, no peritoneal signs, nondistended Results Lab / Micro Data 01/18/24 18:41 01/18/24 18:41 Labs: Laboratory Results - last 24 hr 01/18/24 18:40: Lipase 29 01/18/24 18:41: WBC 12.6 H, RBC 5.03, Hgb 14.0, Hct 43.2, MCV 85.9, MCH 27.8, MCHC 32.4, RDW Std Deviation 39.0, RDW Coeff of Khadijah 12.5, Plt Count 421, MPV 9.8, Immature Gran % (Auto) 1.500 H, Neut % (Auto) 82.4 H, Lymph % (Auto) 6.2 L, [place] % (Auto) 8.0, Eos % (Auto) 1.0, Baso % (Auto) 0.9, Absolute Neuts (auto) 10.4 H, Absolute Lymphs (auto) 0.78 L, Nucleated RBC % 0, PT Cancelled, INR Cancelled, APTT Cancelled, Sodium 135 L, Potassium 4.3, Chloride 104, Carbon Dioxide 23.0, Anion Gap 8, BUN 9, Creatinine 0.94, Estim Creat Clear Calc 124.40, Est GFR (MDRD) Af Amer 113, Est GFR (MDRD) Non-Af 93, BUN/Creatinine Ratio 9.6 L, Glucose 114 H, Lactic Acid 1.4, Calcium 8.9, Total Bilirubin 1.10 H, AST 92 H, ALT 124 H, Alkaline Phosphatase 121 H, Total Protein 6.9, Albumin 2.7 L, Globulin 4.2, Albumin/Globulin Ratio 0.6 L 01/18/24 20:00: PT 16.2 H, INR 1.3, APTT 37.2 H Imaging Radiology Impression Chest X-Ray 01/18/24 19:25 IMPRESSION: No active disease. Electronically Signed: Chidi Carvajal MD at 19:57 EDT , Assessment & Plan Assessment/Plan (1) Abscess, intra-abdominal, postoperative: PLAN: Plan Did discuss with Dr. Hahn as well. Planning to do an exploratory laparoscopy, possible laparotomy, possible bowel resection discussed procedure with the patient and his including risk not limited to bleeding, infection, placement of drain/leaving the midline wound skin open after the surgery, revision of anastomosis, and anesthesia. Patient and his had no further questions this time. Veronica Garner M.D. Pager: [phone] [facility] [address] [place] [address], [facility], [address] [place] [address] Office: [phone]
[2024-01-18 21:26] LABS: Bacteria 0 SEEN /hpf (None Seen); Mucous, Urine 0 SEEN /hpf (<or=2+); Red Blood Cells-Urine 0 SEEN /hpf (0-5); Squamous Epithelial Cells - UA 0 SEEN /hpf (0-5); White Blood Cells 0 SEEN /hpf (0-5)
[2024-01-18 21:30] LABS: Color, Urine Yellow (Yellow); Glucose, Dipstick Normal (Normal); Ketone-Dipstick 5 mg/dl (Negative); Leukocyte Esterase-Dipstick Negative /ul (Negative); Nitrite-Dipstick Negative (Negative); Occult Blood-Urine Negative /ul (Negative); Protein-Dipstick 15 mg/dl (Negative); Specific Gravity, Urine 1.015 (1.002-1.030); Urine Bilirubin Dipstick Negative (Negative); Urine Clarity Clear (Clear); Urine Urobilinogen Normal (Normal)
[2024-01-19] VITALS (24 sets, daily range): BP systolic 101–145; BP diastolic 61–89; PULSE 94–135; RESP 16–26; TEMP 36.5–39.5; O2SAT 92–100; BMI 27.6
[2024-01-19] MEDS: Bupivacaine Mpf 0.5% 30 ML VIAL (00:55)
--- NOTE | 2024-01-19 01:15 | OP.PCM_ITS ---
Report of Operation Date of Procedure: 01/19/24 Pre-Operative Diagnosis: Postoperative abscess status post right hemicolectomy Post-Operative Diagnosis: Same Surgery/Procedure Performed:: Diagnostic laparoscopy converted to exploratory laparotomy with washout and drain placement Description of Surgical Findings:: ? Copious purulence encountered along the right paracolic gutter tracking deeply to patient's ileocolic anastomosis ? Intact ileocolic anastomosis that is widely patent Surgeon: Trevor Hahn forming tube selector: Veronica Garner forming tube selector: Josephine Escalera Type of Anesthesia: General/Supplemental Anesthesiologist: Krzysztof Rankin Specimen's removed: Peritoneal culture Drains: 15 Bel[place]ian round Harman Estimated Blood Loss (mL): 100 Description of Procedure: Patient arrived from the emergency department and written consents were confirmed. He was brought to the operating room where he was positioned supine on the operating room table. He underwent induction with general endotracheal anesthetic. He was administered preoperative antibiotics with 3.375 g Zosyn in the ER prior to his arrival to the OR. SCDs were placed on bilateral lower extremities. Patient's abdomen was prepped and draped in usual sterile fashion. A formal timeout followed to confirm patient and the procedure. The procedure was begun by opening patient's prior hand-assisted incision. Upon doing so we found a partial fascial dehiscence and entered the peritoneum. A wound protector was placed with a GelPort and the abdomen was insufflated to a pressure of 15 mmHg. Further inspection of the peritoneum revealed several adhesions between the small bowel and the lateral sidewall. In order to explore things more completely we elected to place 5 mm ports through patient's prior 5 mm port site incisions in the right lower quadrant, suprapubic, and left lower quadrant positions. Local anesthetic was instilled prior to port placement under laparoscopic visualization. The patient was then positioned Trendelenburg with the left side down and I began to inspect the peritoneum. We opened patient's prior dissection plane laterally and as we approached the liver in the right upper quadrant we encountered copious purulence emanating from deep to patient's ileocolic anastomosis. A specimen of this fluid was collected to help tailor antibiotics using a Luken's trap on our suction delivery driver/supervisor device. Then e xtensive suction and irrigation followed using greater than 4 L of warm sterile saline. And a broader examination of the bowel revealed that it was rather densely adherent to the retroperitoneum and the ability to scrutinize the anastomosis was limited. Thus we made the decision to convert to a exploratory laparotomy to be able to deliver patient's anastomosis into this opening and achieve an adequate investigation. A laparotomy incision was extended from approximately 12 cm above the umbilicus to an additional 2 cm inferiorly and was carried down through the abdominal wall fascia with the use of electrocautery taking care to maintain hemostasis as we proceeded. A large wound protector was placed to assist with retraction. Then bluntly I was able to develop patient's prior surgical bed and elevate the anastomosis. We first identified the crotch stitch placed at the initial operation and worked laterally until we could identify the entirety of the anastomosis. It was palpated and found to be freely patent without evidence of leak. The omental patch I had placed at the index operation remained intact as well. The bowel contributing to this anastomosis?both the colon and the small bowel appeared well-perfused. Satisfied with this evaluation we conducted a further washout of the retroperitoneal space using warm sterile saline and this was suctioned free of the peritoneum. Given diffuse oozing of the retroperitoneum a laparotomy pack was placed along with manual traction for a period of 2 minutes. After this pressure was lifted the area was reinspected and found to be largely hemostatic. Thus the patient's right lower quadrant port was withdrawn and a 15 Bel[place]ian round Harman drain was introduced to the peritoneum via this opening. The drain tubing was positioned along the lateral aspect of the peritoneum up to the edge of the right lobe of the liver and was secured at the skin using a 2-0 nylon suture. I sought omentum to cover over the bowel and then transitioned to fascial closure using double-stranded running #1 PDS sutures x2 in a bidirectional fashion and tying them in the middle. Additional local anesthetic was infiltrated above the fascia. The remaining 5 mm port sites were closed with skin joey in the inferior aspect of the patient's laparotomy incision was reapproximated about the umbilicus with skin joey. Above the fascia I irrigated once more and then the subcutaneous void was packed with moistened Kerlix gauze. Abdominal pad was taped atop this area as a dressing. Patient's LUZ drain was pinned to this dressing and the patient was extubated and taken to PACU for ongoing recovery. Grafts/Implants Used: None Complications None Admit VTE Documentation VTE Mechan Device Prophylaxis: SCD's Procedures Digestive 40xxx-49xxx: 77335 XLap, Exploration of abdomen
[2024-01-19] MEDS: 0.9% Normal Saline (1000mL) 1,000 ML 15 ML IV (01:25)
[2024-01-19] MEDS: Acetaminophen 325 MG Tablet 650 MG PO ×2 (03:08→19:06)
[2024-01-19] MEDS: 0.9% Normal Saline (1000mL) 1,000 ML 125 ML IV ×3 (05:18→20:41)
[2024-01-19] MEDS: 0.9% Normal Saline (250mL Bag) 250 ML 15 ML IV (05:20)
[2024-01-19] MEDS: Piperacil/Tazobactam 3.375 GM in 0.9% Normal Saline (50mL MB+) 50 ML IV ×3 (05:20→22:48)
[2024-01-19] MEDS: Ketorolac 15 MG/ML Vial IV ×3 (05:20→20:12)
[2024-01-19 06:51] LABS: Basophil# 0.09 X10^3/uL; Basophil% 0.9 % (0-1); Eosinophil# 0.02 X10^3/uL; Eosinophils% 0.2 % (0-5); Hematocrit 40.3 % (40-54); Hemoglobin 12.7 g/dL (13.0-16.5); Lymphocyte % 8.2 % (19-41); Mean Corp Hgb Conc 31.5 g/dL (32-36); Mean Corpuscular Hgb 27.3 pg (27.0-32.0); Mean Corpuscular Volume 86.5 fL (80-94); Mean Platelet Vol. 9.9 fl (6.2-12.0); Monocyte# 0.72 X10^3/uL; Monocyte% 7.4 % (0-10); NRBC Flagged by Analyzer 0 % (0-5); Neutrophil % 81.8 % (47-70); Platelet Count 456 K/mm3 (150-450); RBC Distribution Width CV 12.8 % (11.6-14.6); RBC Distribution Width SD 40.3 fl (35.1-43.9); Red Blood Count 4.66 M/mm3 (4.6-6.2); White Blood Count 9.8 K/mm3 (4.4-11.0)
[2024-01-19] MEDS: Tamsulosin HCl 0.4 MG Capsule PO (06:59)
[2024-01-19] MEDS: HYDROmorphone 0.5 MG/0.5 ML SYRINGE IV ×4 (07:02→22:55)
[2024-01-19 07:23] LABS: AST(SGOT) 91 U/L (15-37); Alanine Aminotransfer ALT/SGPT 117 U/L (16-61); Albumin, Serum 2.3 g/dL (3.2-5.0); Alkaline Phosphatase 100 U/L (45-117); Anion Gap 6 (5-15); BUN 12 mg/dL (7-18); BUN/Creat Ratio 10.8 RATIO (10-20); Bilirubin, Direct 0.45 mg/dL (0.00-0.30); Chloride 108 mmol/L (98-107); Creatinine, Serum 1.11 mg/dL (0.70-1.30); EST Glomerular Filtration Rate 77 mL/min (>60); Est Glom Filt Rate - Afr Amer 93 mL/min (>60); Estimated Creatinine Clearance 102.56 ml/min; Globulin 3.5 g/dL (2.2-4.2); Glucose 130 mg/dL (74-106); Protein, Total 5.8 g/dL (6.4-8.2); Sodium Level 136 mmol/L (136-145)
[2024-01-19] MEDS: diazePAM 2 MG Tablet PO ×2 (08:48→15:56)
--- NOTE | 2024-01-19 08:53 | PCM.PN.SRG ---
Objective Data Objective Data Vital Signs: Vital Signs Temp Pulse Resp BP Pulse Ox O2 Del Method O2 Flow Rate 97.9 F 117 H 18 101/63 96 Nasal Cannula 2 01/19/24 06:46 01/19/24 06:46 01/19/24 06:46 01/19/24 06:46 01/19/24 06:46 01/19/24 06:46 01/19/24 06:46 Oxygen Flow Rate (L/min) 2 Oxygen Delivery Method Nasal Cannula Weight: 221 lb 5.506 oz Body Mass Index (BMI) 27.6 Intake & Output: Intake and Output for Last 24 Hours 01/17/24 01/18/24 01/19/24 23:59 23:59 23:59 Intake Total 1050 / 1050 151.25 / 151.25 Output Total 55 / 55 Balance 1050 / 1050 96.25 / 96.25 Lab / Micro Data 01/19/24 06:11 01/19/24 06:11 Labs: Laboratory Results - last 24 hr 01/18/24 18:40: Lipase 29 01/18/24 18:41: WBC 12.6 H, RBC 5.03, Hgb 14.0, Hct 43.2, MCV 85.9, MCH 27.8, MCHC 32.4, RDW Std Deviation 39.0, RDW Coeff of Khadijah 12.5, Plt Count 421, MPV 9.8, Immature Gran % (Auto) 1.500 H, Neut % (Auto) 82.4 H, Lymph % (Auto) 6.2 L, [place] % (Auto) 8.0, Eos % (Auto) 1.0, Baso % (Auto) 0.9, Absolute Neuts (auto) 10.4 H, Absolute Lymphs (auto) 0.78 L, Nucleated RBC % 0, PT Cancelled, INR Cancelled, APTT Cancelled, Sodium 135 L, Potassium 4.3, Chloride 104, Carbon Dioxide 23.0, Anion Gap 8, BUN 9, Creatinine 0.94, Estim Creat Clear Calc 124.40, Est GFR (MDRD) Af Amer 113, Est GFR (MDRD) Non-Af 93, BUN/Creatinine Ratio 9.6 L, Glucose 114 H, Lactic Acid 1.4, Calcium 8.9, Total Bilirubin 1.10 H, AST 92 H, ALT 124 H, Alkaline Phosphatase 121 H, Total Protein 6.9, Albumin 2.7 L, Globulin 4.2, Albumin/Globulin Ratio 0.6 L 01/18/24 20:00: PT 16.2 H, INR 1.3, APTT 37.2 H 01/18/24 20:44: Urine Color Yellow, Urine Clarity Clear, Urine pH 6.0, Ur Specific [place] 1.015, Urine Protein 15 H, Urine Glucose (UA) Normal, Urine Ketones 5 H, Urine Occult Blood Negative, Urine Nitrite Negative, Urine Bilirubin Negative, Urine Urobilinogen Normal, Ur Leukocyte Esterase Negative, Urine RBC 0 SEEN, Urine WBC 0 SEEN, Ur Squamous Epith Cells 0 SEEN, Urine Bacteria 0 SEEN, Urine Mucus 0 SEEN 01/19/24 06:11: WBC 9.8, RBC 4.66, Hgb 12.7 L, Hct 40.3, MCV 86.5, MCH 27.3, MCHC 31.5 L, RDW Std Deviation 40.3, RDW Coeff of Khadijah 12.8, Plt Count 456 H, MPV 9.9, Immature Gran % (Auto) 1.500 H, Neut % (Auto) 81.8 H, Lymph % (Auto) 8.2 L, [place] % (Auto) 7.4, Eos % (Auto) 0.2, Baso % (Auto) 0.9, Absolute Neuts (auto) 8.0 H, Absolute Lymphs (auto) 0.80 L, Nucleated RBC % 0, Sodium 136, Potassium 4.0, Chloride 108 H, Carbon Dioxide 22.0, Anion Gap 6, BUN 12, Creatinine 1.11, Estim Creat Clear Calc 102.56, Est GFR (MDRD) Af Amer 93, Est GFR (MDRD) Non-Af 77, BUN/Creatinine Ratio 10.8, Glucose 130 H, Calcium 8.0 L, Total Bilirubin 1.00, Direct Bilirubin 0.45 H, AST 91 H, ALT 117 H, Alkaline Phosphatase 100, Total Protein 5.8 L, Albumin 2.3 L, Globulin 3.5 Radiography Diagnostic Testing: Radiology Impression Abdomen/Pelvis CT 01/18/24 19:08 IMPRESSION: 1. Interval recent right hemicolectomy with multiple suspected areas of phlegmon/developing abscesses in the right side of the retroperitoneum at the site of resection of the ascending colon. 2. Small amount of free fluid in the pelvis. 3. 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 4. Small bilateral pleural effusions with some bibasilar atelectasis. Electronically Signed: Chidi Carvajal MD at 20:43 EDT Reading Location ID and State: [id number] / [employer] , Service support , ADDENDUM: 01/18/24 2100 IMPRESSION: 1. Interval recent right hemicolectomy with multiple suspected areas of phlegmon/developing abscesses in the right side of the retroperitoneum at the site of resection of the ascending colon. 2. Small amount of free fluid in the pelvis. 3. 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 4. Small bilateral pleural effusions with some bibasilar atelectasis. N.B. : The above Results were Read Back by Chidi Carvajal MD to TRISTEN Moon, and understanding confirmed on 01/18/2024 20:53:10 (ET). Electronically Signed: Chidi Carvajal MD at 20:43 EDT Reading Location ID and State: [id number] / [employer] , Service support , Chest X-Ray 01/18/24 19:25 IMPRESSION: No active disease. Electronically Signed: Chidi Carvajal MD at 19:57 EDT Reading Location ID and State: [id number] / [employer] , Service support , Assessment & Plan Assessment/Plan (1) S/P exploratory laparotomy: PLAN: POD 0 ex lap and washout of abd abscess, LUZ placement (2) Abscess, intra-abdominal, postoperative: (3) Superior mesenteric vein thrombosis: PLAN: Plan -Will keep n.p.o. with IV fluids until bowel function -Urinary retention will place John -Pain control?Dilaudid also try Valium for muscle spasms -LUZ sanguinous but clearing up, will continue to monitor -Continue IV Zosyn, wound care wet-to-dry starting tonight for midline wound -Will plan to start heparin 5000 units 3 times daily later today no issues with that we will be able to move on to more therapeutic options for the superior mesenteric vein thrombosis. -LFTs improving we will continue to monitor Veronica Garner M.D. Pager: [phone] [facility] [address] [place] [address], [facility], [address] [place] [address] Office: [phone]
[2024-01-19] MEDS: Heparin Injection (Vial) 5,000 UNIT/ML VIAL 5000 UNIT SC ×2 (14:20→22:50)
[2024-01-19] MEDS: 0.9% Saline Lock 10 ML Syringe IV ×2 (20:12→22:55)
[2024-01-19] MEDS: oxyCODONE 5 MG Tablet PO (20:14)
[2024-01-20 02:03] VITALS: BP 145/82; PULSE 100; RESP 20; TEMP 36.8; O2SAT 97
[2024-01-20] MEDS: Acetaminophen 325 MG Tablet 650 MG PO (02:07)
[2024-01-20] MEDS: oxyCODONE 5 MG Tablet PO ×5 (02:07→23:23)
[2024-01-20] MEDS: diazePAM 2 MG Tablet PO ×4 (03:06→23:23)
[2024-01-20 04:02] LABS: Absolute Lymphocyte Count 1.74 X10^3/uL (0.83-4.51); Absolute Neutrophil Count 12.2 X10^3/uL (2.0-7.7); Basophil# 0.08 X10^3/uL; Basophil% 0.5 % (0-1); Eosinophil# 0.03 X10^3/uL; Eosinophils% 0.2 % (0-5); Hematocrit 36.5 % (40-54); Hemoglobin 11.7 g/dL (13.0-16.5); Lymphocyte # 1.74 X10^3/ul (0.83-4.51); Lymphocyte % 10.8 % (19-41); Mean Corp Hgb Conc 32.1 g/dL (32-36); Mean Corpuscular Hgb 27.7 pg (27.0-32.0); Mean Corpuscular Volume 86.5 fL (80-94); Mean Platelet Vol. 9.4 fl (6.2-12.0); Monocyte# 1.86 X10^3/uL; Monocyte% 11.6 % (0-10); NRBC Flagged by Analyzer 0 % (0-5); Neutrophil # 12.19 X10^3/uL (2.7-7.7); Neutrophil % 75.7 % (47-70); POSITIVE DIFFERENTIAL YES; Platelet Count 383 K/mm3 (150-450); RBC Distribution Width CV 12.9 % (11.6-14.6); RBC Distribution Width SD 40.6 fl (35.1-43.9); Red Blood Count 4.22 M/mm3 (4.6-6.2); White Blood Count 16.1 K/mm3 (4.4-11.0)
[2024-01-20 04:05] LABS: Differential Indicated SCAN CRITERIA MET
[2024-01-20 04:22] LABS: AST(SGOT) 59 U/L (15-37); Alanine Aminotransfer ALT/SGPT 87 U/L (16-61); Albumin, Serum 1.9 g/dL (3.2-5.0); Alkaline Phosphatase 79 U/L (45-117); Anion Gap 6 (5-15); BUN 19 mg/dL (7-18); BUN/Creat Ratio 18.8 RATIO (10-20); Bilirubin, Direct 0.33 mg/dL (0.00-0.30); Calcium,Total 7.5 mg/dL (8.5-10.1); Chloride 108 mmol/L (98-107); Creatinine, Serum 1.01 mg/dL (0.70-1.30); EST Glomerular Filtration Rate 85 mL/min (>60); Est Glom Filt Rate - Afr Amer 103 mL/min (>60); Estimated Creatinine Clearance 112.71 ml/min; Globulin 3.4 g/dL (2.2-4.2); Glucose 125 mg/dL (74-106); Magnesium 1.9 mg/dL (1.6-2.6); Phosphorus 2.8 mg/dL (2.5-4.9); Protein, Total 5.3 g/dL (6.4-8.2); Sodium Level 138 mmol/L (136-145)
--- NOTE | 2024-01-20 04:22 | NURSING ---
Pt walked a half lap in the bishop with the bow maker machine tender. tolerated well.
[2024-01-20 04:25] LABS: Differential Comment SCANNED
[2024-01-20] MEDS: 0.9% Normal Saline (1000mL) 1,000 ML 125 ML IV ×3 (04:33→20:27)
[2024-01-20 06:33] VITALS: BP 118/76; PULSE 92; RESP 22; TEMP 36.9; O2SAT 98
[2024-01-20] MEDS: Piperacil/Tazobactam 3.375 GM in 0.9% Normal Saline (50mL MB+) 50 ML IV ×3 (06:35→22:33)
[2024-01-20] MEDS: Heparin Injection (Vial) 5,000 UNIT/ML VIAL 5000 UNIT SC ×3 (06:37→22:33)
[2024-01-20] MEDS: 0.9% Saline Lock 10 ML Syringe IV ×4 (06:41→23:24)
[2024-01-20] MEDS: Ketorolac 15 MG/ML Vial IV ×2 (06:41→18:01)
[2024-01-20 09:21] VITALS: BP 136/63; PULSE 93; RESP 20; TEMP 36.6; O2SAT 97
--- NOTE | 2024-01-20 09:47 | PN.SURG_ITS ---
Subjective Subjective Patient is a 43 y/o M I am following in conjunction with Dr. Hahn. Patient was readmitted over the weekend with increased fever and abdominal pain. Patient was found to have an intraabdominal abscess. Patient is s/p diag lap converted to exploratory laparotomy with washout and drain placement on 01/18. Patient keisha rated the procedure well. Patient had to have his John exchanged due to sediment/discoloration of the tubing. Patient notes having continued abdominal spasms. He notes the Valium is working well. He states he is feeling exhausted. He continues to note night sweats. He denies nausea, vomiting at this time. He notes tolerating the ice chips. Objective Data Objective Data Vital Signs: Vital Signs Temp Pulse Resp BP Pulse Ox O2 Del Method O2 Flow Rate 97.9 F 93 20 H 136/63 H 97 Room Air 2 01/20/24 09:21 01/20/24 09:21 01/20/24 09:21 01/20/24 09:21 01/20/24 09:21 01/20/24 09:36 01/19/24 13:22 Oxygen Flow Rate (L/min) 2 Oxygen Delivery Method Room Air Weight: 221 lb 5.506 oz Body Mass Index (BMI) 27.6 Intake & Output: Intake and Output for Last 24 Hours 01/18/24 01/19/24 01/20/24 23:59 23:59 23:59 Intake Total 1050 / 1050 2174.17 / 2174.17 1033.33 / 1033.33 Output Total 935 / 935 708 / 708 Balance 1050 / 1050 1239.17 / 1239.17 325.33 / 325.33 Lab / Micro Data 01/20/24 03:46 01/20/24 03:46 Labs: Laboratory Results - last 24 hr 01/20/24 03:46: WBC 16.1 H, RBC 4.22 L, Hgb 11.7 L, Hct 36.5 L, MCV 86.5, MCH 27.7, MCHC 32.1, RDW Std Deviation 40.6, RDW Coeff of Khadijah 12.9, Plt Count 383, MPV 9.4, Immature Gran % (Auto) 1.200 H, Neut % (Auto) 75.7 H, Lymph % (Auto) 10.8 L, [place] % (Auto) 11.6 H, Eos % (Auto) 0.2, Baso % (Auto) 0.5, Absolute Neuts (auto) 12.2 H, Absolute Lymphs (auto) 1.74, Nucleated RBC % 0, Differential Comment SCANNED, Diff Path Review May foll, Sodium 138, Potassium 4.0, Chloride 108 H, Carbon Dioxide 24.0, Anion Gap 6, BUN 19 H, Creatinine 1.01, Estim Creat Clear Calc 112.71, Est GFR (MDRD) Af Amer 103, Est GFR (MDRD) Non-Af 85, BUN/Creatinine Ratio 18.8, Glucose 125 H, Calcium 7.5 L, Phosphorus 2.8, Magnesium 1.9, Total Bilirubin 0.80, Direct Bilirubin 0.33 H, AST 59 H, ALT 87 H, Alkaline Phosphatase 79, Total Protein 5.3 L, Albumin 1.9 L, Globulin 3.4 Micro: Microbiology 01/18/24 20:49 Urine, Clean Catch Urine Culture - Final Culture exhibits no growth. Physical Exam GI GI Narrative: Abdomen- slightly distended, soft, hypoactive bowel sounds. Midline incision with healthy granulation tissue noted. No purulent material on the gauze. Damp to dry dressing change was completed. Wound is superficial. Remaining incisions c/d/i. No erythema noted. LUZ drain with serosanguineous bloody fluid noted. No odor is noted. Abdominal binder was reapplied. Assessment & Plan Assessment/Plan (1) Abscess, intra-abdominal, postoperative: (2) Superior mesenteric vein thrombosis: (3) Infection following a procedure, deep incisional surgical site, initial encounter: PLAN: Plan I am seeing this patient in conjunction with Dr. Hahn. He has independently evaluated this patient. Continue to encourage ambulation and I.S Muscle spasms most likely from deep sutures. Alternate Valium, Toradol, Tylenol as needed for pain Continue to wear abdominal binder when ambulating. May leave the binder open when sitting in the chair or laying in bed. Change abdominal midline incision dressing twice daily with damp to dry gauze dressings. Continue to monitor the LUZ drainage output for change in drainage color and odor. Use Tylenol as needed for fevers Await cultures from deep abscess along with urine and blood cultures Cultures from incision returned as E. Faecalis, pseudomonas aeruginosa, B. fragilis, and actinomyces naeslundii. Continue Zosyn May use a K pad for comfort Continue cardiac monitoring for at least an additional 24 hours Labs reviewed Continue anticoagulation We will continue to closely monitor this patient Charges/Coding Visit Charges Inpatient E&M: 45275 [facility] L[facility] (no charge)
[2024-01-20 11:00] VITALS: PULSE 93
--- NOTE | 2024-01-20 13:13 | WOUNDNOTE ---
wound photo: abdomen
[2024-01-20 14:23] VITALS: BP 131/68; PULSE 105; RESP 18; TEMP 36.9; O2SAT 95
--- NOTE | 2024-01-20 14:25 | CASEMGMT ---
ADDI SAPP Readmission Note Previous Admission:01/11/24-01/16/24 Diagnosis: ileocecal intussusception DC Disposition: Home with performing wound care Current Admission: Admitted 01/18/24 Current Diagnosis: intra abd abscess s/p right hemicolectomy Pt presented to the ER due to fever at home. Patient is status post right hemicolectomy due to ileocolic intussusception due to inflammatory polyp per pathology. Patient had a wound infection after surgery and was prescribed antibiotics. Pt went to surgery this admission for diagnostic lap converted to exploratory laparotomy with washout and drain placement. ADDI SAPP into pt room, pt present. Pt states that the wound care was going well at home until she noted a change in the drainage and pt status. Pt did obtain his rx and took medications as ordered. Pt was to have a follow up appt today. Pt states she is still able to perform wound care if needed at al. Pt noted to be ambulating in the halls. Pt denies any further needs at this time. ADDI SAPP to follow. DC Plan: Home pending course of hospitalization.
[2024-01-20] MEDS: HYDROmorphone 0.5 MG/0.5 ML SYRINGE IV (15:16)
[2024-01-20 15:47] LABS: Lactic Acid 1.1 mmol/L (0.4-1.9)
[2024-01-20] MEDS: 0.9% Normal Saline (250mL Bag) 250 ML 15 ML IV (16:27)
[2024-01-20] MEDS: Vancomycin HCl 1,500 MG in 0.9% Normal Saline (500mL Bag) 500 ML 250 MG IV (16:27)
--- NOTE | 2024-01-20 16:45 | PHA.PHARE_ITS ---
Consult Antibiotic Management Pharmacy has been consulted to manage selected antibiotic: Vancomycin Type of Intervention Type of Consult: New start Suspected Infection Suspected Infection: Skin/Soft tissue (WOUND INFECTION) Labs Labs: Sodium 138 mmol/L (136-145) 01/20/24 03:46 Potassium 4.0 mmol/L (3.5-5.1) 01/20/24 03:46 Chloride 108 mmol/L (98-107) H 01/20/24 03:46 Carbon Dioxide 24.0 mmol/L (21.0-32.0) 01/20/24 03:46 Anion Gap 6 (5-15) 01/20/24 03:46 BUN 19 mg/dL (7-18) H 01/20/24 03:46 Creatinine 1.01 mg/dL (0.70-1.30) 01/20/24 03:46 Est GFR (MDRD) Af Amer 103 mL/min (>60) 01/20/24 03:46 Est GFR (MDRD) Non-Af 85 mL/min (>60) 01/20/24 03:46 BUN/Creatinine Ratio 18.8 RATIO (10-20) 01/20/24 03:46 Glucose 125 mg/dL (74-106) H 01/20/24 03:46 Microbiology Microbiology: Microbiology 01/19/24 00:01 Aspirate - Abdominal Gram Stain - Final 01/19/24 00:01 Aspirate - Abdominal Wound Culture - Preliminary GPC Poss Enterococcus sp Beta streptococcus Gram negative 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 Pharmacy Plan for Drug Dosing Pharmacy Plan for Drug Dosing: NEW START IV VANCOMYCIN Consulting Physician: SHARIF Indication: WOUND INFECTION Goal Trough: 15-20 MG/DL SrCr: 1.01 MG/DL CrCl: 112 ML/MIN Comments: initial standard dose of 1500mg given at 1627 Vancomycin Dose: Will start 1250mg Q8 and get a trough prior to 4th total dose per policy. Pending Level: 01/21/24 @ 1600 Pharmacy Service will continue to monitor and adjust dosing as required.
[2024-01-20] MEDS: Tamsulosin HCl 0.4 MG Capsule PO (17:49)
[2024-01-20 20:00] VITALS: BP 104/61; PULSE 98; RESP 16; TEMP 37.2; O2SAT 92
[2024-01-20] MEDS: Vancomycin HCl 1,250 MG in 0.9% Normal Saline (250mL Bag) 250 ML 167 MG IV (23:27)
[2024-01-21] VITALS (7 sets, daily range): BP systolic 118–138; BP diastolic 66–79; PULSE 89–104; RESP 14–18; TEMP 36.4–37.3; O2SAT 93–97
[2024-01-21] MEDS: Ketorolac 15 MG/ML Vial IV (02:37)
[2024-01-21] MEDS: oxyCODONE 5 MG Tablet PO ×4 (03:44→23:50)
[2024-01-21] MEDS: 0.9% Normal Saline (1000mL) 1,000 ML 125 ML IV ×3 (05:10→21:53)
[2024-01-21] MEDS: Heparin Injection (Vial) 5,000 UNIT/ML VIAL 5000 UNIT SC ×3 (05:48→21:40)
[2024-01-21] MEDS: Piperacil/Tazobactam 3.375 GM in 0.9% Normal Saline (50mL MB+) 50 ML IV ×3 (05:48→21:21)
[2024-01-21] MEDS: diazePAM 2 MG Tablet PO ×2 (05:48→21:21)
[2024-01-21] MEDS: HYDROmorphone 0.5 MG/0.5 ML SYRINGE IV ×4 (06:39→19:49)
[2024-01-21] MEDS: 0.9% Saline Lock 10 ML Syringe IV ×4 (06:39→14:12)
[2024-01-21 07:13] LABS: Absolute Lymphocyte Count 1.65 X10^3/uL (0.83-4.51); Absolute Neutrophil Count 7.3 X10^3/uL (2.0-7.7); Basophil# 0.06 X10^3/uL; Basophil% 0.6 % (0-1); Eosinophil# 0.38 X10^3/uL; Eosinophils% 3.5 % (0-5); Hematocrit 32.3 % (40-54); Hemoglobin 10.1 g/dL (13.0-16.5); Lymphocyte # 1.65 X10^3/ul (0.83-4.51); Lymphocyte % 15.3 % (19-41); Mean Corp Hgb Conc 31.3 g/dL (32-36); Mean Corpuscular Hgb 27.3 pg (27.0-32.0); Mean Corpuscular Volume 87.3 fL (80-94); Mean Platelet Vol. 9.7 fl (6.2-12.0); Monocyte# 1.22 X10^3/uL; Monocyte% 11.3 % (0-10); NRBC Flagged by Analyzer 0 % (0-5); Neutrophil # 7.34 X10^3/uL (2.7-7.7); Neutrophil % 68.4 % (47-70); Platelet Count 384 K/mm3 (150-450); RBC Distribution Width SD 41.2 fl (35.1-43.9); White Blood Count 10.8 K/mm3 (4.4-11.0)
--- NOTE | 2024-01-21 07:41 | RAD_ITS ---
STUDY: X-RAY - ABDOMEN/PELVIS REASON FOR EXAM: Male, 43 years old. Abdominal distention -- PORTABLE . Post surgery. TECHNIQUE: Single AP view of the abdomen / pelvis. COMPARISON: None. FINDINGS: The patient is status post right hemicolectomy. Drainage catheter seen in the right midabdomen and in the right upper quadrant. Findings suggestive of a Asuh-Kent drain in the right upper quadrant with a safety pin. Minimally dilated small bowel loops in the left abdomen. Gas is seen within the rectum. The visualized liver, spleen and kidneys are grossly normal in size and morphology. Normal soft tissue structures. Normal visualized osseous structures. RAD/Abdomen Single View (Portable) IMPRESSION: Drainage catheters are seen in the abdomen in keeping with recent post right hemicolectomy with a drainage bulb overlying the right upper quadrant with a safety pin. Electronically Signed: Charlie Melo MD at 8:50 EDT ,
--- NOTE | 2024-01-21 07:42 | PCM.PN.SRG ---
Subjective Subjective Patient resting comfortably in bed. He continues to note abdominal spasms, however they seem less. He denies nausea, vomiting. He feels his bowels are turning, however no flatus or BM at this time. He is tolerating ice chips. No concerns or complaints at this time. Objective Data Objective Data Vital Signs: Vital Signs Temp Pulse Resp BP Pulse Ox O2 Del Method O2 Flow Rate 98.9 F 89 16 119/69 96 Room Air 2 01/21/24 06:10 01/21/24 06:10 01/21/24 02:26 01/21/24 02:26 01/21/24 02:26 01/21/24 02:01/19/24 13:22 Oxygen Flow Rate (L/min) 2 Oxygen Delivery Method Room Air Weight: 221 lb 5.506 oz Body Mass Index (BMI) 27.6 Intake & Output: Intake and Output for Last 24 Hours 01/19/24 01/20/24 01/21/24 23:59 23:59 23:59 Intake Total 2174.17 / 2174.17 3629.41 / 3629.41 1325 / 1325 Output Total 935 / 935 713 / 1213 510 / 510 Balance 1239.17 / 1239.17 2916.41 / 2416.41 815 / 815 Lab / Micro Data 01/21/24 06:49 01/20/24 03:46 Labs: Laboratory Results - last 24 hr 01/20/24 15:14: Lactic Acid 1.1 01/21/24 06:49: WBC 10.8, RBC 3.70 L, Hgb 10.1 L, Hct 32.3 L, MCV 87.3, MCH 27.3, MCHC 31.3 L, RDW Std Deviation 41.2, RDW Coeff of Khadijah 13.0, Plt Count 384, MPV 9.7, Immature Gran % (Auto) 0.900, Neut % (Auto) 68.4, Lymph % (Auto) 15.3 L, [place] % (Auto) 11.3 H, Eos % (Auto) 3.5, Baso % (Auto) 0.6, Absolute Neuts (auto) 7.3, Absolute Lymphs (auto) 1.65, Nucleated RBC % 0 Micro: Microbiology 01/19/24 00:01 Aspirate - Abdominal Gram Stain - Final 01/19/24 00:01 Aspirate - Abdominal Wound Culture - Preliminary GPC Poss Enterococcus sp Streptococcus group G Gram negative anil GNR lactose traveling phlebotomist GNR Poss Pseudomonas sp 01/18/24 20:49 Urine, Clean Catch Urine Culture - Final Culture exhibits no growth. Physical Exam GI GI Narrative: Abdomen- slightly distended. Soft. Generalized tenderness. Positive bowel sounds. Midline incision: ABD pad changed. Morning shift just placed the damp gauze. There was serosanguineous fluid within the umbilicus that was cleaned out. Dry gauze followed by an ABD pad was applied. There does also appear to be a little ischemia at the staple at the curve of the umbilicus; continue to observe. Remaining incisions c/d/i. Anusha intact. LUZ drain with serosanguineous fluid appears to be light pink in color, improving from yesterday. Drain was stripped. Assessment & Plan Assessment/Plan (1) S/P exploratory laparotomy: (2) Superior mesenteric vein thrombosis: (3) Abscess, intra-abdominal, postoperative: (4) Infection following a procedure, deep incisional surgical site, initial encounter: PLAN: Plan I am following this patient in conjunction with Dr. Hahn. He has independently evaluated this patient. Continue to encourage ambulation and I.S Muscle spasms most likely from deep sutures. Alternate Valium, Toradol, Tylenol as needed for pain Continue to wear abdominal binder when ambulating. May leave the binder open when sitting in the chair or laying in bed. Change abdominal midline incision dressing three times daily with damp to dry gauze dressings. Continue to monitor the LUZ drainage output for change in drainage color and odor. Use Tylenol as needed for fevers and pain Cultures from intraabdominal preliminary are Strep Group G, Gram negative rods, GNR lactose traveling phlebotomist, GNR Poss pseudomonas, GPC poss enterococcus. Anaerobic still pending. Cultures from incision returned as E. Faecalis, pseudomonas aeruginosa, B. fragilis, and actinomyces naeslundii. Vanco was added and will continue Zosyn May use a K pad for comfort or ice Continue cardiac monitoring for at least an additional 24 hours; until tachycardia resolves. Hopeful removal tomorrow Labs pending. WBC returned as 10.8 which has decreased from 16.1 yesterday. Continue anticoagulation Will order KUB today to assess distention Continue John. May D/C John tomorrow We will continue to closely monitor this patient Charges/Coding Visit Charges Inpatient E&M: 02252 Subs Hosp L1 (no charge; post-op)
[2024-01-21 08:04] LABS: Anion Gap 8 (5-15); BUN 16 mg/dL (7-18); Calcium,Total 7.7 mg/dL (8.5-10.1); Chloride 108 mmol/L (98-107); Creatinine, Serum 0.84 mg/dL (0.70-1.30); EST Glomerular Filtration Rate 106 mL/min (>60); Est Glom Filt Rate - Afr Amer 128 mL/min (>60); Estimated Creatinine Clearance 135.52 ml/min; Glucose 89 mg/dL (74-106); Magnesium 2.2 mg/dL (1.6-2.6); Potassium 3.7 mmol/L (3.5-5.1); Sodium Level 140 mmol/L (136-145)
[2024-01-21] MEDS: Vancomycin HCl 1,250 MG in 0.9% Normal Saline (250mL Bag) 250 ML 167 MG IV (08:36)
[2024-01-21 08:51] LABS: Pathologist Review Reviewed
[2024-01-21] MEDS: Potassium Phosphate 15 MM in 0.9% Normal Saline (250mL Bag) 250 ML 125 MM IV (10:31)
[2024-01-21] MEDS: Acetaminophen 325 MG Tablet 650 MG PO ×2 (10:36→23:50)
--- NOTE | 2024-01-21 15:28 | CASEMGMT ---
Received tc from Abiodun from [facility] inquiring on pt status and dc plans. Updated Abiodun at this time.
[2024-01-21 17:04] LABS: Vancomycin, Trough Level 11.8 ug/mL (5.0-15.0)
[2024-01-21] MEDS: Tamsulosin HCl 0.4 MG Capsule PO (17:05)
--- NOTE | 2024-01-21 17:15 | PCM.RX.CS ---
Consult Antibiotic Management Pharmacy has been consulted to manage selected antibiotic: Vancomycin Type of Intervention Type of Consult: Follow-up Suspected Infection Suspected Infection: Skin/Soft tissue Prior Doses of Antibiotics Prior Doses of Antibiotics Received/Current Regimen: Vancomycin 1250 mg Q8H given 01/19 @ 9367 and 01/20 @ 0836 Labs Labs: Sodium 140 mmol/L (136-145) 01/21/24 06:49 Potassium 3.7 mmol/L (3.5-5.1) 01/21/24 06:49 Chloride 108 mmol/L (98-107) H 01/21/24 06:49 Carbon Dioxide 24.0 mmol/L (21.0-32.0) 01/21/24 06:49 Anion Gap 8 (5-15) 01/21/24 06:49 BUN 16 mg/dL (7-18) 01/21/24 06:49 Creatinine 0.84 mg/dL (0.70-1.30) 01/21/24 06:49 Est GFR (MDRD) Af Amer 128 mL/min (>60) 01/21/24 06:49 Est GFR (MDRD) Non-Af 106 mL/min (>60) 01/21/24 06:49 BUN/Creatinine Ratio 19.0 RATIO (10-20) 01/21/24 06:49 Glucose 89 mg/dL (74-106) 01/21/24 06:49 Vancomycin Trough 11.8 ug/mL (5.0-15.0) 01/21/24 15:57 Microbiology Microbiology: Microbiology 01/18/24 19:00 Blood Culture (Wb) - Anticubital Right Blood Culture - Preliminary No growth in 48 hours. 01/18/24 18:41 Blood Culture (Wb) - Anticubital Left Blood Culture - Preliminary No growth in 48 hours. 01/19/24 00:01 Aspirate - Abdominal Gram Stain - Final 01/19/24 00:01 Aspirate - Abdominal Wound Culture - Preliminary GPC Poss Enterococcus sp Streptococcus group G Gram negative anil GNR lactose director trade GNR Poss Pseudomonas sp 01/19/24 00:01 Aspirate - Abdominal Anaerobic Culture - Preliminary Checking for anaerobes, further studies to follow. 01/18/24 20:49 Urine, Clean Catch Urine Culture - Final Culture exhibits no growth. Dosing Weight Weight used for dosin.4 kg Estimated Creatinine Clearance Estimated Creatinine Clearance: ~135 Goal Trough Goal Trough: 15-20 mcg/mL Pharmacy Plan for Drug Dosing Pharmacy Plan for Drug Dosing: Vancomycin trough = 11.8, will increase to 1750 mg IV Q8H Pharmacy Service will continue to monitor and adjust dosing as required. Follow-Up Labs Follow-Up Labs: Trough: Vancomycin Date/Time Labs Ordered Labs to be done on [date and time ordered]: 01/22/24 @ 1466
[2024-01-21] MEDS: Vancomycin HCl 1,750 MG in 0.9% Normal Saline (500mL Bag) 500 ML 250 MG IV (17:43)
[2024-01-22] MEDS: Vancomycin HCl 1,750 MG in 0.9% Normal Saline (500mL Bag) 500 ML 250 MG IV ×2 (01:06→08:31)
[2024-01-22 04:18] VITALS: BP 130/74; PULSE 77; RESP 16; TEMP 36.8; O2SAT 94
[2024-01-22] MEDS: oxyCODONE 5 MG Tablet PO ×4 (04:19→20:34)
[2024-01-22] MEDS: 0.9% Normal Saline (1000mL) 1,000 ML 125 ML IV ×2 (05:36→14:24)
[2024-01-22] MEDS: diazePAM 2 MG Tablet PO (05:36)
[2024-01-22] MEDS: Piperacil/Tazobactam 3.375 GM in 0.9% Normal Saline (50mL MB+) 50 ML IV ×3 (05:36→22:34)
[2024-01-22] MEDS: Heparin Injection (Vial) 5,000 UNIT/ML VIAL 5000 UNIT SC ×3 (05:37→22:35)
[2024-01-22 07:31] LABS: Absolute Lymphocyte Count 1.92 X10^3/uL (0.83-4.51); Absolute Neutrophil Count 5.6 X10^3/uL (2.0-7.7); Basophil# 0.06 X10^3/uL; Basophil% 0.6 % (0-1); Eosinophils% 6.5 % (0-5); Hematocrit 31.6 % (40-54); Hemoglobin 9.8 g/dL (13.0-16.5); Lymphocyte # 1.92 X10^3/ul (0.83-4.51); Lymphocyte % 20.7 % (19-41); Mean Corpuscular Hgb 27.1 pg (27.0-32.0); Mean Corpuscular Volume 87.5 fL (80-94); Mean Platelet Vol. 10.1 fl (6.2-12.0); Monocyte# 0.93 X10^3/uL; NRBC Flagged by Analyzer 0 % (0-5); Neutrophil # 5.62 X10^3/uL (2.7-7.7); Neutrophil % 60.8 % (47-70); Platelet Count 460 K/mm3 (150-450); RBC Distribution Width SD 41.6 fl (35.1-43.9); Red Blood Count 3.61 M/mm3 (4.6-6.2); White Blood Count 9.3 K/mm3 (4.4-11.0)
[2024-01-22 07:49] VITALS: BP 124/77; PULSE 84; RESP 18; TEMP 37; O2SAT 95
[2024-01-22 07:51] LABS: Anion Gap 6 (5-15); BUN 10 mg/dL (7-18); BUN/Creat Ratio 12.9 RATIO (10-20); Calcium,Total 7.8 mg/dL (8.5-10.1); Chloride 111 mmol/L (98-107); Creatinine, Serum 0.78 mg/dL (0.70-1.30); EST Glomerular Filtration Rate 116 mL/min (>60); Est Glom Filt Rate - Afr Amer 140 mL/min (>60); Estimated Creatinine Clearance 145.95 ml/min; Glucose 83 mg/dL (74-106); Phosphorus 2.6 mg/dL (2.5-4.9); Potassium 3.6 mmol/L (3.5-5.1); Sodium Level 141 mmol/L (136-145)
[2024-01-22] MEDS: HYDROmorphone 0.5 MG/0.5 ML SYRINGE IV (08:23)
[2024-01-22] MEDS: 0.9% Saline Lock 10 ML Syringe IV ×2 (08:31→19:55)
--- NOTE | 2024-01-22 09:08 | PN.SURG_ITS ---
Subjective Subjective Patient evaluated resting comfortably in bed. He notes he had a rough night last night. He notes this morning not feeling well. He states he has more belching. He notes having a horrible experience during the KUB yesterday. He denies any vomiting. He was tolerating clear liquid diet, however belching had increased. He notes abdominal pain in the right lower quadrant. No fever noted over the last 24 hours. Objective Data Objective Data Vital Signs: Vital Signs Temp Pulse Resp BP Pulse Ox O2 Del Method O2 Flow Rate 98.6 F 84 18 124/77 H 95 Room Air 2 01/22/24 07:49 01/22/24 07:49 01/22/24 07:49 01/22/24 07:49 01/22/24 07:49 01/22/24 07:49 01/19/24 13:22 Oxygen Flow Rate (L/min) 2 Oxygen Delivery Method Room Air Weight: 221 lb 5.506 oz Body Mass Index (BMI) 27.6 Intake & Output: Intake and Output for Last 24 Hours 01/20/24 01/21/24 01/22/24 23:59 23:59 23:59 Intake Total 3629.41 / 3629.41 4419.16 / 4669.16 2155.83 / 2155.83 Output Total 713 / 1213 965 / 1565 850 / 850 Balance 2916.41 / 2416.41 3454.16 / 3104.16 1305.83 / 1305.83 Lab / Micro Data 01/22/24 06:18 01/22/24 06:18 Labs: Laboratory Results - last 24 hr 01/21/24 15:57: Vancomycin Trough 11.8 01/22/24 06:18: WBC 9.3, RBC 3.61 L, Hgb 9.8 L, Hct 31.6 L, MCV 87.5, MCH 27.1, MCHC 31.0 L, RDW Std Deviation 41.6, RDW Coeff of Khadijah 13.0, Plt Count 460 H, MPV 10.1, Immature Gran % (Auto) 1.400 H, Neut % (Auto) 60.8, Lymph % (Auto) 20.7, Saline % (Auto) 10.0, Eos % (Auto) 6.5 H, Baso % (Auto) 0.6, Absolute Neuts (auto) 5.6, Absolute Lymphs (auto) 1.92, Nucleated RBC % 0, Sodium 141, Potassium 3.6, Chloride 111 H, Carbon Dioxide 24.0, Anion Gap 6, BUN 10, Creatinine 0.78, Estim Creat Clear Calc 145.95, Est GFR (MDRD) Af Amer 140, Est GFR (MDRD) Non-Af 116, BUN/Creatinine Ratio 12.9, Glucose 83, Calcium 7.8 L, Phosphorus 2.6, Magnesium 2.0 Micro: Microbiology 01/19/24 00:01 Aspirate - Abdominal Gram Stain - Final 01/19/24 00:01 Aspirate - Abdominal Wound Culture - Final Enterococcus faecalis Streptococcus group G Escherichia coli Pseudomonas aeruginosa 01/19/24 00:01 Aspirate - Abdominal Anaerobic Culture - Preliminary Checking for anaerobes, further studies to follow. 01/18/24 19:00 Blood Culture (Wb) - Anticubital Right Blood Culture - Preliminary No growth in 48 hours. 01/18/24 18:41 Blood Culture (Wb) - Anticubital Left Blood Culture - Pre liminary No growth in 48 hours. 01/18/24 20:49 Urine, Clean Catch Urine Culture - Final Culture exhibits no growth. Physical Exam GI GI Narrative: Abdomen- slightly more distended this morning. Pain in the right lower quadrant where LUZ drain is located. Hypoactive bowel sounds. LUZ drain with serosanguineous drainage. Assessment & Plan Assessment/Plan (1) S/P exploratory laparotomy: (2) Abscess, intra-abdominal, postoperative: (3) Ileus: (4) Infection following a procedure, deep incisional surgical site, initial encounter: PLAN: Plan I am following this patient in conjunction with Dr. Hahn. He has independently evaluated this patient. Continue to encourage ambulation and I.S Switch Valium to IV Ativan 1 mg q 4H. Continue to use Tylenol alternating with the Ativan to avoid narcotics if possible Continue to wear abdominal binder when ambulating. May leave the binder open when sitting in the chair or laying in bed. Change abdominal midline incision dressing three times daily with damp to dry gauze dressings. Continue to monitor the LUZ drainage output for change in drainage color and odor. Hopeful removal tomorrow Cultures from intraabdominal preliminary are Strep Group G, Gram negative rods, GNR lactose electrical instrumentation technician, GNR Poss pseudomonas, GPC poss enterococcus. Anaerobic still pending. Cultures from incision returned as E. Faecalis, pseudomonas aeruginosa, B. fragilis, and actinomyces naeslundii. Vanco was added and will continue Zosyn May use a K pad for comfort or ice Discontinue cardiac monitoring Labs pending. WBC returned as 9.3 which has decreased from 10.8 yesterday. Continue anticoagulation Will order KUB today to assess distention Discontinue John Will provide 20mg dose of Lasix x 1 this morning Hopeful reapproximation of the incision later today or tomorrow Continue sips and chips at this time We will continue to closely monitor this patient Charges/Coding Visit Charges Inpatient E&M: 01387 Subs Hosp L1 (post-op; no charge)
--- NOTE | 2024-01-22 09:10 | RAD_ITS ---
STUDY: X-RAY - ABDOMEN/PELVIS REASON FOR EXAM: Male, 43 years old. Abdominal distention -- PORTABLE TECHNIQUE: Single AP view of the abdomen / pelvis. COMPARISON: Comparison is made with prior study dated January 21, 2024. FINDINGS: A surgical drainage catheter is seen overlying the lateral aspect of the liver in the right upper quadrant. There is an unremarkable bowel gas pattern. The visualized liver, spleen and kidneys are grossly normal in size and morphology. Normal soft tissue structures. Normal visualized osseous structures. RAD/Abdomen Single View (Portable) IMPRESSION: Nonspecific bowel gas pattern. Electronically Signed: Charlie Melo MD at 9:38 EDT ,
--- NOTE | 2024-01-22 10:04 | NURSING ---
Up to Bathroom and voided 650cc. Pt now walking in bishop with at his side.
[2024-01-22] MEDS: Ondansetron 4 MG/2 ML Vial IV ×2 (10:12→19:52)
[2024-01-22] MEDS: Furosemide 20 MG/2 ML VIAL IV (10:17)
[2024-01-22] MEDS: Menthol/Lanolin/Calamine/Znox 113 GM Tube 1 APPLIC TOPICAL (10:22)
[2024-01-22] MEDS: Acetaminophen 325 MG Tablet 650 MG PO ×2 (10:33→17:15)
[2024-01-22] MEDS: LORazepam 2 MG/ML Syringe 1 MG IV (12:55)
--- NOTE | 2024-01-22 13:38 | PCM.OP.PRO ---
Procedure Report Date of Procedure: 01/22/24 Procedure: Delayed primary closure of laparotomy wound Description: After confirming our consent verbally and prepping patient's abdomen sterilely with Betadine and draped with towels the procedure was begun with instillation of local anesthetic into both sides of his wound using a total of 16 mL 1% lidocaine. The wound was then reapproximated with widely spaced gapping using 2-0 nylon suture in a vertical mattress fashion. A single 3-0 nylon suture was used for some unevenness between the skin edges. Patient tolerated the procedure without difficulty. Several elaine of quarter-inch packing strip were placed in the interstices between sutures. Fluffed gauze and abdominal pad was taped in place for dressing. EBL: 16 mL Complications: None Procedures Integumentary [id number]: [id number] Late closure of wound
[2024-01-22 14:00] VITALS: BP 145/65; PULSE 70; RESP 16; TEMP 36.4; O2SAT 96
[2024-01-22] MEDS: 0.9% Normal Saline (250mL Bag) 250 ML 15 ML IV (14:25)
[2024-01-22 17:01] VITALS: BP 131/80; PULSE 84; RESP 18; TEMP 37.1; O2SAT 96
[2024-01-22] MEDS: Vancomycin Trough/Random Due 1 LAB MC (17:06)
[2024-01-22 17:07] LABS: Bedside Glucose 79 mg/dL (74-106)
[2024-01-22 17:12] LABS: Vancomycin, Trough Level 24.9 ug/mL (5.0-15.0)
[2024-01-22] MEDS: Tamsulosin HCl 0.4 MG Capsule PO (17:14)
--- NOTE | 2024-01-22 17:31 | PCM.RX.CS ---
Consult Antibiotic Management Pharmacy has been consulted to manage selected antibiotic: Vancomycin Type of Intervention Type of Consult: Follow-up Labs Labs: Sodium 141 mmol/L (136-145) 01/22/24 06:18 Potassium 3.6 mmol/L (3.5-5.1) 01/22/24 06:18 Chloride 111 mmol/L (98-107) H 01/22/24 06:18 Carbon Dioxide 24.0 mmol/L (21.0-32.0) 01/22/24 06:18 Anion Gap 6 (5-15) 01/22/24 06:18 BUN 10 mg/dL (7-18) 01/22/24 06:18 Creatinine 0.78 mg/dL (0.70-1.30) 01/22/24 06:18 Est GFR (MDRD) Af Amer 140 mL/min (>60) 01/22/24 06:18 Est GFR (MDRD) Non-Af 116 mL/min (>60) 01/22/24 06:18 BUN/Creatinine Ratio 12.9 RATIO (10-20) 01/22/24 06:18 Glucose 83 mg/dL (74-106) 01/22/24 06:18 Vancomycin Trough 24.9 ug/mL (5.0-15.0) H 01/22/24 16:30 Microbiology Microbiology: Microbiology 01/19/24 00:01 Aspirate - Abdominal Gram Stain - Final 01/19/24 00:01 Aspirate - Abdominal Wound Culture - Final Enterococcus faecalis Streptococcus group G Escherichia coli Pseudomonas aeruginosa 01/19/24 00:01 Aspirate - Abdominal Anaerobic Culture - Preliminary Checking for anaerobes, further studies to follow. 01/18/24 19:00 Blood Culture (Wb) - Anticubital Right Blood Culture - Preliminary No growth in 48 hours. 01/18/24 18:41 Blood Culture (Wb) - Anticubital Left Blood Culture - Preliminary No growth in 48 hours. 01/18/24 20:49 Urine, Clean Catch Urine Culture - Final Culture exhibits no growth. Goal Trough Goal Trough: 15-20 mcg/mL Pharmacy Plan for Drug Dosing Pharmacy Plan for Drug Dosing: VANCOMYCIN LEVEL RECEIVED Current Vancomycin Dose: 1750mg IV Q8h Number of Doses Received: 3 (of current regimen) Vancomycin Level: 24.9 Hours Since Last Dose: 8hrs Renal Function: 0.78 Renal Function Trend: stable Lab/Micro: Cx growing several organisms, including enterococcus Vancomycin Plan/Comments: Patient had a trough drawn which resulted in a value of 24.9 (goal 15-20). Since trough is above therapeutic goal, will hold subsequent doses of vancomycin until trough is <20. Discontinuing vancomycin 1750mg IV Q8h at this time Pending Level: *RANDOM* level 01/23/24 @0600 (with AM labs) Pharmacy Service will continue to monitor and adjust dosing as required.
[2024-01-22] MEDS: Dext 5%-0.45% NS 1,000 ML 75 ML IV (18:48)
[2024-01-22] MEDS: Bisacodyl 10 MG Suppository RC (18:48)
[2024-01-22 20:00] VITALS: BP 112/70; PULSE 91; RESP 16; TEMP 36.9; O2SAT 94
[2024-01-22 22:00] VITALS: PULSE 91; RESP 16; O2SAT 94
[2024-01-23] MEDS: oxyCODONE 5 MG Tablet PO ×2 (00:51→08:08)
[2024-01-23] MEDS: Acetaminophen 325 MG Tablet 650 MG PO ×2 (00:51→18:45)
[2024-01-23 02:00] VITALS: BP 123/78; PULSE 72; RESP 16; TEMP 36.8; O2SAT 95
[2024-01-23] MEDS: Ondansetron 4 MG/2 ML Vial IV ×2 (04:05→14:44)
[2024-01-23] MEDS: Piperacil/Tazobactam 3.375 GM in 0.9% Normal Saline (50mL MB+) 50 ML IV ×3 (06:04→22:00)
[2024-01-23] MEDS: Heparin Injection (Vial) 5,000 UNIT/ML VIAL 5000 UNIT SC ×3 (06:07→21:58)
[2024-01-23] MEDS: Vancomycin Trough/Random Due 1 LAB MC (06:11)
[2024-01-23 06:14] LABS: Absolute Lymphocyte Count 1.82 X10^3/uL (0.83-4.51); Absolute Neutrophil Count 5.1 X10^3/uL (2.0-7.7); Basophil# 0.07 X10^3/uL; Basophil% 0.8 % (0-1); Eosinophil# 0.52 X10^3/uL; Hematocrit 33.7 % (40-54); Hemoglobin 10.8 g/dL (13.0-16.5); Lymphocyte # 1.82 X10^3/ul (0.83-4.51); Lymphocyte % 21.1 % (19-41); Mean Corpuscular Hgb 27.7 pg (27.0-32.0); Mean Corpuscular Volume 86.4 fL (80-94); Mean Platelet Vol. 9.1 fl (6.2-12.0); Monocyte# 0.89 X10^3/uL; Monocyte% 10.3 % (0-10); NRBC Flagged by Analyzer 0 % (0-5); Neutrophil # 5.14 X10^3/uL (2.7-7.7); Neutrophil % 59.8 % (47-70); POSITIVE MORPHOLOGY YES; Platelet Count 483 K/mm3 (150-450); RBC Distribution Width SD 40.7 fl (35.1-43.9); White Blood Count 8.6 K/mm3 (4.4-11.0)
[2024-01-23 06:34] LABS: ALB/GLOB Ratio 0.6 RATIO (0.9-2.4); AST(SGOT) 55 U/L (15-37); Alanine Aminotransfer ALT/SGPT 73 U/L (16-61); Alkaline Phosphatase 82 U/L (45-117); Anion Gap 5 (5-15); BUN 9 mg/dL (7-18); BUN/Creat Ratio 8.9 RATIO (10-20); Calcium,Total 8.2 mg/dL (8.5-10.1); Chloride 107 mmol/L (98-107); Creatinine, Serum 1.01 mg/dL (0.70-1.30); EST Glomerular Filtration Rate 85 mL/min (>60); Est Glom Filt Rate - Afr Amer 103 mL/min (>60); Estimated Creatinine Clearance 112.71 ml/min; Globulin 3.5 g/dL (2.2-4.2); Glucose 107 mg/dL (74-106); Potassium 3.3 mmol/L (3.5-5.1); Protein, Total 5.5 g/dL (6.4-8.2); Sodium Level 141 mmol/L (136-145)
[2024-01-23 07:06] LABS: Differential Indicated SCAN CRITERIA MET
[2024-01-23 07:19] LABS: Differential Comment SCANNED
[2024-01-23] MEDS: Metoclopramide 10 MG/2 ML Vial IV (07:58)
[2024-01-23] MEDS: Menthol/Lanolin/Calamine/Znox 113 GM Tube 1 APPLIC TOPICAL ×2 (07:59→21:58)
[2024-01-23 08:00] VITALS: BP 137/84; PULSE 87; RESP 18; TEMP 36.7; O2SAT 97
[2024-01-23] MEDS: Dext 5%-0.45% NS 1,000 ML 75 ML IV (08:12)
--- NOTE | 2024-01-23 08:50 | PCM.PN.SRG ---
Subjective Subjective Patient evaluated walking back to bed when entering the room. He had just passed small amount of flatus and small formed BM. He notes being nauseated this morning starting at 4 AM. Patient notes his discomfort is improving. His abdominal spasms seem less. He has been walking and belching less. He notes his scrotum is still swollen. He is urinating well. He has been tolerating sips and chips well. he has been chewing gum. He notes getting some rest last night. He is still sore getting up and down. Objective Data Objective Data Vital Signs: Vital Signs Temp Pulse Resp BP Pulse Ox O2 Del Method O2 Flow Rate 98.1 F 87 18 137/84 H 97 Room Air 2 01/23/24 08:00 01/23/24 08:00 01/23/24 08:00 01/23/24 08:00 01/23/24 08:00 01/23/24 08:16 01/19/24 13:22 Oxygen Flow Rate (L/min) 2 Oxygen Delivery Method Room Air Weight: 221 lb 5.506 oz Body Mass Index (BMI) 27.6 Intake & Output: Intake and Output for Last 24 Hours 01/21/24 01/22/24 01/23/24 23:59 23:59 23:59 Intake Total 4419.16 / 4669.16 4411.83 / 4411.83 1320 / 1320 Output Total 965 / 1565 2525 / 2525 Balance 3454.16 / 3104.16 1886.83 / 1886.83 1320 / 1320 Lab / Micro Data 01/23/24 06:05 01/23/24 06:05 Labs: Laboratory Results - last 24 hr 01/22/24 16:30: Vancomycin Trough 24.9 H 01/22/24 16:49: POC Glucose 79 01/23/24 06:05: WBC 8.6, RBC 3.90 L, Hgb 10.8 L, Hct 33.7 L, MCV 86.4, MCH 27.7, MCHC 32.0, RDW Std Deviation 40.7, RDW Coeff of Khadijah 13.0, Plt Count 483 H, MPV 9.1, Immature Gran % (Auto) 2.000 H, Neut % (Auto) 59.8, Lymph % (Auto) 21.1, [place] % (Auto) 10.3 H, Eos % (Auto) 6.0 H, Baso % (Auto) 0.8, Absolute Neuts (auto) 5.1, Absolute Lymphs (auto) 1.82, Nucleated RBC % 0, Differential Comment SCANNED, Sodium 141, Potassium 3.3 L, Chloride 107, Carbon Dioxide 29.0, Anion Gap 5, BUN 9, Creatinine 1.01, Estim Creat Clear Calc 112.71, Est GFR (MDRD) Af Amer 103, Est GFR (MDRD) Non-Af 85, BUN/Creatinine Ratio 8.9 L, Glucose 107 H, Calcium 8.2 L, Total Bilirubin 0.70, AST 55 H, ALT 73 H, Alkaline Phosphatase 82, Total Protein 5.5 L, Albumin 2.0 L, Globulin 3.5, Albumin/Globulin Ratio 0.6 L, Random Vancomycin 10.0 Micro: Microbiology 01/19/24 00:01 Aspirate - Abdominal Gram Stain - Final 01/19/24 00:01 Aspirate - Abdominal Wound Culture - Final Enterococcus faecalis Streptococcus group G Escherichia coli Pseudomonas aeruginosa 01/19/24 00:01 Aspirate - Abdominal Anaerobic Culture - Preliminary Checking for anaerobes, further studies to follow. 01/18/24 19:00 Blood Culture (Wb) - Anticubital Right Blood Culture - Preliminary No growth in 48 hours. 01/18/24 18:41 Blood Culture (Wb) - Anticubital Left Blood Culture - Preliminary No growth in 48 hours. 01/18/24 20:49 Urine, Clean Catch Urine Culture - Final Culture exhibits no growth. Radiography Diagnostic Testing: Radiology Impression KUB X-Ray 01/22/24 09:10 IMPRESSION: Nonspecific bowel gas pattern. Electronically Signed: Charlie Melo MD at 9:38 EDT , Physical Exam GI GI Narrative: Abdomen- less distended, soft. Packing was removed from in between the sutures which were placed yesterday to assist with reapproximating the wound. Plain packing was replaced. There was some oozing at the superior aspect of the incision. Pressure dressing was applied followed by additional dry gauze and ABD pad secured with medipore tape. Less tender in the right lower quadrant. Assessment & Plan Assessment/Plan (1) Ileus: (2) S/P exploratory laparotomy: (3) Superior mesenteric vein thrombosis: (4) Abscess, intra-abdominal, postoperative: (5) Infection following a procedure, deep incisional surgical site, initial encounter: (6) Ileocolic intussusception: PLAN: Plan I am following this patient in conjunction with Dr. Hahn. He has independently evaluated this patient. Continue to encourage ambulation and I.S Continue to limit narcotic usage to encourage bowel function. Continue to wear abdominal binder when ambulating. May leave the binder open when sitting in the chair or laying in bed. Change abdominal midline incision dressing daily with plain packing change Continue to monitor the LUZ drainage output for change in drainage color and odor. Hopeful removal tomorrow, once patient is tolerating more of a diet and bowel function Cultures from intraabdominal final are Strep Group G, E. Faecalis, pseudomonas aeruginosa, and E Coli. Anaerobic still pending. Cultures from incision returned as E. Faecalis, pseudomonas aeruginosa, B. fragilis, and actinomyces naeslundii. Blood and urine cultures negative. Continue Zosyn and Vanco for 1 more day May use a K pad for comfort or ice Labs reviewed. WBC returned as 8.6 which has decreased from 9.3 yesterday. Will order labs for tomorrow Potassium is 3.3 today. Will replace. Continue anticoagulation Await further bowel function. Once more flatus and BM, will increase diet to sips of clears and continue to go slow. We will continue to closely monitor this patient Charges/Coding Visit Charges Inpatient E&M: 89247 Subs Hosp L1 (post-op; no charge)
--- NOTE | 2024-01-23 09:08 | PCM.RX.CS ---
Consult Antibiotic Management Pharmacy has been consulted to manage selected antibiotic: Vancomycin Type of Intervention Type of Consult: Follow-up Prior Doses of Antibiotics Prior Doses of Antibiotics Received/Current Regimen: 1750mg iv q8h. Labs Labs: Sodium 141 mmol/L (136-145) 01/23/24 06:05 Potassium 3.3 mmol/L (3.5-5.1) L 01/23/24 06:05 Chloride 107 mmol/L (98-107) 01/23/24 06:05 Carbon Dioxide 29.0 mmol/L (21.0-32.0) 01/23/24 06:05 Anion Gap 5 (5-15) 01/23/24 06:05 BUN 9 mg/dL (7-18) 01/23/24 06:05 Creatinine 1.01 mg/dL (0.70-1.30) 01/23/24 06:05 Est GFR (MDRD) Af Amer 103 mL/min (>60) 01/23/24 06:05 Est GFR (MDRD) Non-Af 85 mL/min (>60) 01/23/24 06:05 BUN/Creatinine Ratio 8.9 RATIO (10-20) L 01/23/24 06:05 Glucose 107 mg/dL (74-106) H 01/23/24 06:05 Vancomycin Trough 24.9 ug/mL (5.0-15.0) H 01/22/24 16:30 Random Vancomycin 10.0 ug/mL (0.0-15.0) 01/23/24 06:05 Microbiology Microbiology: Microbiology 01/19/24 00:01 Aspirate - Abdominal Gram Stain - Final 01/19/24 00:01 Aspirate - Abdominal Wound Culture - Final Enterococcus faecalis Streptococcus group G Escherichia coli Pseudomonas aeruginosa 01/19/24 00:01 Aspirate - Abdominal Anaerobic Culture - Preliminary Checking for anaerobes, further studies to follow. 01/18/24 19:00 Blood Culture (Wb) - Anticubital Right Blood Culture - Preliminary No growth in 48 hours. 01/18/24 18:41 Blood Culture (Wb) - Anticubital Left Blood Culture - Preliminary No growth in 48 hours. 01/18/24 20:49 Urine, Clean Catch Urine Culture - Final Culture exhibits no growth. Dosing Weight Weight used for dosin.4 kg Estimated Creatinine Clearance Estimated Creatinine Clearance: 113ml/min Goal Trough Goal Trough: 15-20 mcg/mL Pharmacy Plan for Drug Dosing Pharmacy Plan for Drug Dosing: Random level this AM 10.0. Previous trough 24.9. Recommend resuming vancomycin at dose of 1250mg iv q8h. Trough before 4th dose. Pharmacy Service will continue to monitor and adjust dosing as required. Follow-Up Labs Follow-Up Labs: Trough: Vancomycin (3.29.24 0730)
[2024-01-23] MEDS: Vancomycin HCl 1,250 MG in 0.9% Normal Saline (250mL Bag) 250 ML 167 MG IV ×2 (09:30→17:45)
[2024-01-23] MEDS: Potassium Chloride 10mEq/100mL 10 MEQ/100 ML IV.SOLN. 100 MEQ IV BOLUS ×4 (09:49→13:56)
[2024-01-23] MEDS: 0.9% Saline Lock 10 ML Syringe IV (14:44)
[2024-01-23 14:50] VITALS: BP 147/88; PULSE 81; RESP 16; TEMP 36.9; O2SAT 95
[2024-01-23] MEDS: Tamsulosin HCl 0.4 MG Capsule PO (17:46)
--- NOTE | 2024-01-23 17:53 | NURSING ---
Pt walking in [place] again for the 3rd time today.
[2024-01-23 21:46] VITALS: BP 146/78; PULSE 66; RESP 18; TEMP 36.5; O2SAT 98
--- NOTE | 2024-01-24 00:26 | NURSING ---
per Bulmaro in pharmacy, okay to run [id number] with vanc
[2024-01-24] MEDS: Vancomycin HCl 1,250 MG in 0.9% Normal Saline (250mL Bag) 250 ML 167 MG IV (00:37)
[2024-01-24] MEDS: Acetaminophen 325 MG Tablet 650 MG PO ×3 (00:37→18:59)
[2024-01-24] MEDS: Dext 5%-0.45% NS 1,000 ML 75 ML IV (00:39)
[2024-01-24 05:28] VITALS: BP 130/78; PULSE 70; RESP 18; TEMP 36.4; O2SAT 97
[2024-01-24] MEDS: Heparin Injection (Vial) 5,000 UNIT/ML VIAL 5000 UNIT SC ×3 (05:35→21:55)
[2024-01-24] MEDS: Piperacil/Tazobactam 3.375 GM in 0.9% Normal Saline (50mL MB+) 50 ML IV ×3 (05:36→21:58)
--- NOTE | 2024-01-24 08:02 | PN.SURG_ITS ---
Subjective Subjective Patient states he feels better today than yesterday, only really took clears yesterday due to some nausea still having bowel function Objective Data Objective Data Vital Signs: Vital Signs Temp Pulse Resp BP Pulse Ox O2 Del Method O2 Flow Rate 97.5 F L 70 18 130/78 H 97 Room Air 2 01/24/24 05:28 01/24/24 05:28 01/24/24 05:28 01/24/24 05:28 01/24/24 05:28 01/24/24 05:30 01/19/24 13:22 Oxygen Flow Rate (L/min) 2 Oxygen Delivery Method Room Air Weight: 221 lb 5.506 oz Body Mass Index (BMI) 27.6 Intake & Output: Intake and Output for Last 24 Hours 01/22/24 01/23/24 01/24/24 23:59 23:59 23:59 Intake Total 4411.83 / 4411.83 3335 / 3335 527.50 / 527.50 Output Total 2525 / 2525 505 / 505 550 / 550 Balance 1886.83 / 1886.83 2830 / 2830 -22.50 / -22.50 Lab / Micro Data 01/23/24 06:05 01/23/24 06:05 Micro: Microbiology 01/18/24 18:41 Blood Culture (Wb) - Anticubital Left Blood Culture - Final No growth in 5 days. 01/18/24 19:00 Blood Culture (Wb) - Anticubital Right Blood Culture - Final No growth in 5 days. 01/19/24 00:01 Aspirate - Abdominal Gram Stain - Final 01/19/24 00:01 Aspirate - Abdominal Wound Culture - Final Enterococcus faecalis Streptococcus group G Escherichia coli Pseudomonas aeruginosa 01/19/24 00:01 Aspirate - Abdominal Anaerobic Culture - Preliminary Checking for anaerobes, further studies to follow. 01/18/24 20:49 Urine, Clean Catch Urine Culture - Final Culture exhibits no growth. Physical Exam Const oriented x3 and no apparent distress Resp normal respiratory effort Cardio regular rate GI soft to palpation GI Narrative: Incision loosely reapproximated with nylon patient does have iodoform packing in between there is some purulent drainage?couple of the nylons were removed to allow for 3 times daily wet-to-dry dressings, no peritoneal signs, LUZ serous Palpation: tender other (Near incision) Assessment & Plan Assessment/Plan (1) Ileus: (2) S/P exploratory laparotomy: (3) Superior mesenteric vein thrombosis: (4) Abscess, intra-abdominal, postoperative: (5) Infection following a procedure, deep incisional surgical site, initial encounter: (6) Ileocolic intussusception: PLAN: Plan Status post exploratory laparotomy and washout for abscess. Advance diet from clears to transitional as patient is having bowel function Midline incision was loosely reapproximated previously-- did remove some of the sutures to allow for wet-to-dry 3 times daily in 2 locations. Continue Zosyn and vancomycin IV LUZ serous plan to remove when patient is eating well. Veronica Garner M.D. Pager: [phone] [facility] [address] [place] [address], [address] [place] [address] Office: [phone]
[2024-01-24 08:06] LABS: Absolute Neutrophil Count 6.6 X10^3/uL (2.0-7.7); Basophil# 0.08 X10^3/uL; Basophil% 0.8 % (0-1); Eosinophil# 0.41 X10^3/uL; Eosinophils% 4.3 % (0-5); Hematocrit 34.1 % (40-54); Hemoglobin 10.9 g/dL (13.0-16.5); Lymphocyte % 15.6 % (19-41); Mean Corpuscular Hgb 27.3 pg (27.0-32.0); Mean Corpuscular Volume 85.5 fL (80-94); Mean Platelet Vol. 9.3 fl (6.2-12.0); Monocyte# 0.87 X10^3/uL; NRBC Flagged by Analyzer 0 % (0-5); Neutrophil # 6.59 X10^3/uL (2.7-7.7); Neutrophil % 68.4 % (47-70); Platelet Count 566 K/mm3 (150-450); RBC Distribution Width CV 12.8 % (11.6-14.6); RBC Distribution Width SD 39.8 fl (35.1-43.9); Red Blood Count 3.99 M/mm3 (4.6-6.2); White Blood Count 9.6 K/mm3 (4.4-11.0)
[2024-01-24 08:28] LABS: Anion Gap 5 (5-15); BUN 4 mg/dL (7-18); BUN/Creat Ratio 3.4 RATIO (10-20); Calcium,Total 8.5 mg/dL (8.5-10.1); Chloride 107 mmol/L (98-107); Creatinine, Serum 1.16 mg/dL (0.70-1.30); EST Glomerular Filtration Rate 73 mL/min (>60); Est Glom Filt Rate - Afr Amer 88 mL/min (>60); Estimated Creatinine Clearance 98.14 ml/min; Glucose 127 mg/dL (74-106); Magnesium 2.1 mg/dL (1.6-2.6); Phosphorus 2.8 mg/dL (2.5-4.9); Potassium 3.3 mmol/L (3.5-5.1); Sodium Level 140 mmol/L (136-145)
[2024-01-24 08:31] LABS: Vancomycin, Trough Level 21.4 ug/mL (5.0-15.0)
--- NOTE | 2024-01-24 08:54 | PCM.RX.CS ---
Consult Antibiotic Management Pharmacy has been consulted to manage selected antibiotic: Vancomycin Type of Intervention Type of Consult: Follow-up Prior Doses of Antibiotics Prior Doses of Antibiotics Received/Current Regimen: Currently on 1250mg iv q8h. Labs Labs: Sodium 140 mmol/L (136-145) 01/24/24 07:50 Potassium 3.3 mmol/L (3.5-5.1) L 01/24/24 07:50 Chloride 107 mmol/L (98-107) 01/24/24 07:50 Carbon Dioxide 28.0 mmol/L (21.0-32.0) 01/24/24 07:50 Anion Gap 5 (5-15) 01/24/24 07:50 BUN 4 mg/dL (7-18) L 01/24/24 07:50 Creatinine 1.16 mg/dL (0.70-1.30) 01/24/24 07:50 Est GFR (MDRD) Af Amer 88 mL/min (>60) 01/24/24 07:50 Est GFR (MDRD) Non-Af 73 mL/min (>60) 01/24/24 07:50 BUN/Creatinine Ratio 3.4 RATIO (10-20) L 01/24/24 07:50 Glucose 127 mg/dL (74-106) H 01/24/24 07:50 Vancomycin Trough 21.4 ug/mL (5.0-15.0) H 01/24/24 07:50 Random Vancomycin 10.0 ug/mL (0.0-15.0) 01/23/24 06:05 Microbiology Microbiology: Microbiology 01/18/24 18:41 Blood Culture (Wb) - Anticubital Left Blood Culture - Final No growth in 5 days. 01/18/24 19:00 Blood Culture (Wb) - Anticubital Right Blood Culture - Final No growth in 5 days. 01/19/24 00:01 Aspirate - Abdominal Gram Stain - Final 01/19/24 00:01 Aspirate - Abdominal Wound Culture - Final Enterococcus faecalis Streptococcus group G Escherichia coli Pseudomonas aeruginosa 01/19/24 00:01 Aspirate - Abdominal Anaerobic Culture - Preliminary Checking for anaerobes, further studies to follow. 01/18/24 20:49 Urine, Clean Catch Urine Culture - Final Culture exhibits no growth. Dosing Weight Weight used for dosin.4 kg Estimated Creatinine Clearance Estimated Creatinine Clearance: 98ml/min Goal Trough Goal Trough: 15-20 mcg/mL Pharmacy Plan for Drug Dosing Pharmacy Plan for Drug Dosing: Trough today 21.4 and above desired range of 15-20mcg/ml. Recommend a decrease in dose to 1000mg iv q8h with new trough before 4th dose. Pharmacy Service will continue to monitor and adjust dosing as required. Follow-Up Labs Follow-Up Labs: Trough: Vancomycin (3.30.24 0830)
[2024-01-24] MEDS: Vancomycin IV 1,000 MG/200 ML BAG 200 MG IV ×2 (09:33→17:13)
[2024-01-24] MEDS: Menthol/Lanolin/Calamine/Znox 113 GM Tube 1 APPLIC TOPICAL ×2 (09:34→21:56)
[2024-01-24 09:40] VITALS: BP 119/72; PULSE 80; RESP 18; TEMP 36.7; O2SAT 98
[2024-01-24] MEDS: Pantoprazole Sodium 40 MG in 0.9% Normal Saline (100mL MB+) 100 ML 330 MG IV (10:22)
[2024-01-24] MEDS: Potassium Chloride Oral Tablet 20 MEQ 40 MEQ PO (11:19)
[2024-01-24] MEDS: LORazepam 2 MG/ML Syringe 0.5 MG IV (12:58)
[2024-01-24] MEDS: 0.9% Saline Lock 10 ML Syringe IV (12:58)
--- NOTE | 2024-01-24 13:34 | WOUNDNOTE ---
wound photo: abdomen
[2024-01-24 15:00] VITALS: BP 140/85; PULSE 69; RESP 18; TEMP 36.8; O2SAT 95
[2024-01-24] MEDS: Tamsulosin HCl 0.4 MG Capsule PO (17:13)
[2024-01-24 21:49] VITALS: BP 134/78; PULSE 74; RESP 18; TEMP 36.7; O2SAT 96
[2024-01-24] MEDS: Dext 5%-0.45% NS 1,000 ML 50 ML IV (21:54)
[2024-01-25] MEDS: Acetaminophen 325 MG Tablet 650 MG PO ×2 (01:34→22:49)
[2024-01-25] MEDS: Vancomycin IV 1,000 MG/200 ML BAG 200 MG IV (01:34)
[2024-01-25 05:00] VITALS: BP 122/80; PULSE 71; RESP 18; TEMP 36.6; O2SAT 96
[2024-01-25] MEDS: Piperacil/Tazobactam 3.375 GM in 0.9% Normal Saline (50mL MB+) 50 ML IV ×3 (05:44→22:59)
[2024-01-25] MEDS: Heparin Injection (Vial) 5,000 UNIT/ML VIAL 5000 UNIT SC ×3 (05:44→22:55)
[2024-01-25 06:27] LABS: Absolute Lymphocyte Count 1.58 X10^3/uL (0.83-4.51); Basophil# 0.11 X10^3/uL; Basophil% 1.1 % (0-1); Eosinophils% 3.9 % (0-5); Hematocrit 34.5 % (40-54); Hemoglobin 10.8 g/dL (13.0-16.5); Lymphocyte # 1.58 X10^3/ul (0.83-4.51); Lymphocyte % 15.2 % (19-41); Mean Corp Hgb Conc 31.3 g/dL (32-36); Mean Corpuscular Hgb 26.9 pg (27.0-32.0); Mean Corpuscular Volume 85.8 fL (80-94); Mean Platelet Vol. 9.6 fl (6.2-12.0); Monocyte# 1.02 X10^3/uL; Monocyte% 9.8 % (0-10); NRBC Flagged by Analyzer 0 % (0-5); Neutrophil # 7.03 X10^3/uL (2.7-7.7); Neutrophil % 67.8 % (47-70); Platelet Count 624 K/mm3 (150-450); RBC Distribution Width SD 40.4 fl (35.1-43.9); Red Blood Count 4.02 M/mm3 (4.6-6.2); White Blood Count 10.4 K/mm3 (4.4-11.0)
[2024-01-25 06:41] LABS: Anion Gap 4 (5-15); BUN 4 mg/dL (7-18); BUN/Creat Ratio 3.2 RATIO (10-20); Calcium,Total 8.4 mg/dL (8.5-10.1); Chloride 107 mmol/L (98-107); Creatinine, Serum 1.26 mg/dL (0.70-1.30); EST Glomerular Filtration Rate 66 mL/min (>60); Est Glom Filt Rate - Afr Amer 80 mL/min (>60); Estimated Creatinine Clearance 90.35 ml/min; Glucose 107 mg/dL (74-106); Potassium 3.4 mmol/L (3.5-5.1); Sodium Level 140 mmol/L (136-145)
[2024-01-25] MEDS: HYDROmorphone 0.5 MG/0.5 ML SYRINGE IV ×2 (07:28→15:53)
[2024-01-25] MEDS: 0.9% Saline Lock 10 ML Syringe IV ×4 (07:31→15:54)
[2024-01-25 08:46] LABS: Vancomycin, Trough Level 23.5 ug/mL (5.0-15.0)
[2024-01-25] MEDS: Pantoprazole Sodium 40 MG in 0.9% Normal Saline (100mL MB+) 100 ML 330 MG IV (09:08)
[2024-01-25 09:11] VITALS: BP 120/77; PULSE 83; RESP 16; TEMP 36.8; O2SAT 97
--- NOTE | 2024-01-25 09:19 | PCM.PN.SRG ---
Subjective Subjective Patient reports he tolerated some pudding for dinner but he had a lot of nausea yesterday. He is still having a lot of pain especially when laying back. He denies nausea or vomiting this morning. He is passing flatus. Objective Data Objective Data Vital Signs: Vital Signs Temp Pulse Resp BP Pulse Ox O2 Del Method O2 Flow Rate 98.3 F 83 16 120/77 97 Room Air 2 01/25/24 09:11 01/25/24 09:11 01/25/24 09:11 01/25/24 09:11 01/25/24 09:11 01/25/24 09:11 01/19/24 13:22 Oxygen Flow Rate (L/min) 2 Oxygen Delivery Method Room Air Weight: 221 lb 5.506 oz Body Mass Index (BMI) 27.6 Intake & Output: Intake and Output for Last 24 Hours 01/23/24 01/24/24 01/25/24 23:59 23:59 23:59 Intake Total 3335 / 3335 2376.25 / 2376.25 250 / 250 Output Total 505 / 505 1050 / 1050 10 / 10 Balance 2830 / 2830 1326.25 / 1326.25 240 / 240 Lab / Micro Data 01/25/24 05:57 01/25/24 05:57 Labs: Laboratory Results - last 24 hr 01/25/24 05:57: WBC 10.4, RBC 4.02 L, Hgb 10.8 L, Hct 34.5 L, MCV 85.8, MCH 26.9 L, MCHC 31.3 L, RDW Std Deviation 40.4, RDW Coeff of Khadijah 13.0, Plt Count 624 H, MPV 9.6, Immature Gran % (Auto) 2.200 H, Neut % (Auto) 67.8, Lymph % (Auto) 15.2 L, [place] % (Auto) 9.8, Eos % (Auto) 3.9, Baso % (Auto) 1.1 H, Absolute Neuts (auto) 7.0, Absolute Lymphs (auto) 1.58, Nucleated RBC % 0, Sodium 140, Potassium 3.4 L, Chloride 107, Carbon Dioxide 29.0, Anion Gap 4 L, BUN 4 L, Creatinine 1.26, Estim Creat Clear Calc 90.35, Est GFR (MDRD) Af Amer 80, Est GFR (MDRD) Non-Af 66, BUN/Creatinine Ratio 3.2 L, Glucose 107 H, Calcium 8.4 L 01/25/24 08:13: Vancomycin Trough 23.5 H Micro: Microbiology 01/24/24 12:35 Wound - Abdominal Gram Stain - Final 01/24/24 12:35 Wound - Abdominal Wound Culture - Preliminary GPC Poss Enterococcus sp 01/19/24 00:01 Aspirate - Abdominal Gram Stain - Final 01/19/24 00:01 Aspirate - Abdominal Wound Culture - Final Enterococcus faecalis Streptococcus group G Escherichia coli Pseudomonas aeruginosa 01/19/24 00:01 Aspirate - Abdominal Anaerobic Culture - Final Parabacteroides distasonis Bacteroides ovatus Bacteroides fragilis 01/18/24 18:41 Blood Culture (Wb) - Anticubital Left Blood Culture - Final No growth in 5 days. 01/18/24 19:00 Blood Culture (Wb) - Anticubital Right Blood Culture - Final No growth in 5 days. 01/18/24 20:49 Urine, Clean Catch Urine Culture - Final Culture exhibits no growth. Physical Exam Const oriented x3 and no apparent distress Resp normal respiratory effort GI soft to palpation Palpation: tender Assessment & Plan Assessment/Plan (1) S/P exploratory laparotomy: PLAN: The patient was still having pain at his incision site. The drain is still serous. He tolerated some full liquids it seems and I told him to stick with count of a full liquid or clear liquid diet for the day until he is really tolerating without nausea before we start transitional diet. I am leaving the drain in place until he is tolerating a diet per Dr. Hahn's order. The patient still had some pain at the lower portion of his incision when asked to point he pointed just below the umbilicus. When I pushed on this area some sanguinolent purulent fluid came from this area. I used a Q-tip and opened the lower part of the incision to below the bellybutton and there was a lot of bloody and purulent fluid mixed that was removed. I pushed down and nothing seem to be coming through the fascia or any sign of intra-abdominal abscess. This was packed with wet-to-dry and a new dressing was placed. The patient is hypokalemic. I am giving his potassium Phos and rechecking in the morning. Db Barbosa MD Pager: [facility] [address] [place] [address], [facility] [address] [place] [address] Office:
[2024-01-25] MEDS: Potassium Phosphate 30 MM in 0.9% Normal Saline (250mL Bag) 250 ML 42 MM IV (09:33)
[2024-01-25] MEDS: Menthol/Lanolin/Calamine/Znox 113 GM Tube 1 APPLIC TOPICAL ×2 (09:35→22:51)
--- NOTE | 2024-01-25 10:05 | PCM.RX.CS ---
Consult Antibiotic Management Pharmacy has been consulted to manage selected antibiotic: Vancomycin Type of Intervention Type of Consult: Follow-up Labs Labs: Sodium 140 mmol/L (136-145) 01/25/24 05:57 Potassium 3.4 mmol/L (3.5-5.1) L 01/25/24 05:57 Chloride 107 mmol/L (98-107) 01/25/24 05:57 Carbon Dioxide 29.0 mmol/L (21.0-32.0) 01/25/24 05:57 Anion Gap 4 (5-15) L 01/25/24 05:57 BUN 4 mg/dL (7-18) L 01/25/24 05:57 Creatinine 1.26 mg/dL (0.70-1.30) 01/25/24 05:57 Est GFR (MDRD) Af Amer 80 mL/min (>60) 01/25/24 05:57 Est GFR (MDRD) Non-Af 66 mL/min (>60) 01/25/24 05:57 BUN/Creatinine Ratio 3.2 RATIO (10-20) L 01/25/24 05:57 Glucose 107 mg/dL (74-106) H 01/25/24 05:57 Vancomycin Trough 23.5 ug/mL (5.0-15.0) H 01/25/24 08:13 Random Vancomycin 10.0 ug/mL (0.0-15.0) 01/23/24 06:05 Microbiology Microbiology: Microbiology 01/24/24 12:35 Wound - Abdominal Gram Stain - Final 01/24/24 12:35 Wound - Abdominal Wound Culture - Preliminary GPC Poss Enterococcus sp 01/19/24 00:01 Aspirate - Abdominal Gram Stain - Final 01/19/24 00:01 Aspirate - Abdominal Wound Culture - Final Enterococcus faecalis Streptococcus group G Escherichia coli Pseudomonas aeruginosa 01/19/24 00:01 Aspirate - Abdominal Anaerobic Culture - Final Parabacteroides distasonis Bacteroides ovatus Bacteroides fragilis 01/18/24 18:41 Blood Culture (Wb) - Anticubital Left Blood Culture - Final No growth in 5 days. 01/18/24 19:00 Blood Culture (Wb) - Anticubital Right Blood Culture - Final No growth in 5 days. 01/18/24 20:49 Urine, Clean Catch Urine Culture - Final Culture exhibits no growth. Pharmacy Plan for Drug Dosing Pharmacy Plan for Drug Dosing: VANCOMYCIN LEVEL RECEIVED Current Vancomycin Dose: 1000MG IV Q8H Number of Doses Received: 3 (of current regimen) Vancomycin Level: 23.5 Hours Since Last Dose: 6.75hr Renal Function: 1.26 Renal Function Trend: slight increase, but stable Lab/Micro: wcx growing enterococcus Vancomycin Plan/Comments: Patient had a trough drawn which resulted in a value of 23.5 (goal 15-20). Since trough is >20, will hold vancomycin doses until trough is <20. Will check the patient's trough in 8 hrs and resume dosing if trough <20 at that time. Discontinue vancomycin 1000mg IV Q8hr for now Pending Level: *RANDOM* 01/25/24 @1700 Pharmacy Service will continue to monitor and adjust dosing as required.
[2024-01-25] MEDS: Ondansetron 4 MG/2 ML Vial IV (11:36)
[2024-01-25 14:13] VITALS: BP 142/82; PULSE 81; RESP 18; TEMP 36.8; O2SAT 98
[2024-01-25 17:19] VITALS: BP 127/72; PULSE 81; RESP 16; TEMP 36.9; O2SAT 96
[2024-01-25] MEDS: 0.9% Normal Saline (250mL Bag) 250 ML 15 ML IV (17:22)
[2024-01-25 18:02] LABS: Vancomycin, Random Level 15.3 ug/mL (0.0-15.0)
[2024-01-25] MEDS: Vancomycin HCl 750 MG in 0.9% Normal Saline (250mL Bag) 250 ML 250 MG IV (19:03)
[2024-01-25 22:45] VITALS: BP 142/79; PULSE 86; RESP 18; TEMP 36.6; O2SAT 94
[2024-01-25] MEDS: oxyCODONE 5 MG Tablet PO (22:50)
[2024-01-25] MEDS: Dext 5%-0.45% NS 1,000 ML 50 ML IV (22:53)
[2024-01-26] MEDS: Vancomycin HCl 750 MG in 0.9% Normal Saline (250mL Bag) 250 ML 250 MG IV ×3 (03:48→20:50)
[2024-01-26 03:49] VITALS: BP 127/74; PULSE 65; RESP 18; TEMP 36.6; O2SAT 97
[2024-01-26 05:32] LABS: Absolute Lymphocyte Count 1.96 X10^3/uL (0.83-4.51); Absolute Neutrophil Count 7.6 X10^3/uL (2.0-7.7); Basophil# 0.07 X10^3/uL; Basophil% 0.6 % (0-1); Eosinophil# 0.41 X10^3/uL; Eosinophils% 3.6 % (0-5); Hematocrit 32.8 % (40-54); Hemoglobin 10.5 g/dL (13.0-16.5); Lymphocyte # 1.96 X10^3/ul (0.83-4.51); Lymphocyte % 17.4 % (19-41); Mean Corpuscular Hgb 27.9 pg (27.0-32.0); Mean Platelet Vol. 9.1 fl (6.2-12.0); Monocyte# 1.05 X10^3/uL; Monocyte% 9.3 % (0-10); NRBC Flagged by Analyzer 0 % (0-5); Neutrophil # 7.57 X10^3/uL (2.7-7.7); Neutrophil % 67.3 % (47-70); Platelet Count 637 K/mm3 (150-450); RBC Distribution Width CV 13.3 % (11.6-14.6); RBC Distribution Width SD 41.9 fl (35.1-43.9); Red Blood Count 3.77 M/mm3 (4.6-6.2); White Blood Count 11.3 K/mm3 (4.4-11.0)
[2024-01-26 06:25] LABS: Anion Gap 3 (5-15); BUN 4 mg/dL (7-18); BUN/Creat Ratio 2.7 RATIO (10-20); Calcium,Total 8.2 mg/dL (8.5-10.1); Chloride 108 mmol/L (98-107); Creatinine, Serum 1.49 mg/dL (0.70-1.30); EST Glomerular Filtration Rate 55 mL/min (>60); Est Glom Filt Rate - Afr Amer 66 mL/min (>60); Glucose 100 mg/dL (74-106); Phosphorus 4.5 mg/dL (2.5-4.9); Potassium 3.6 mmol/L (3.5-5.1); Sodium Level 142 mmol/L (136-145)
[2024-01-26] MEDS: Heparin Injection (Vial) 5,000 UNIT/ML VIAL 5000 UNIT SC ×3 (06:39→20:54)
[2024-01-26] MEDS: Piperacil/Tazobactam 3.375 GM in 0.9% Normal Saline (50mL MB+) 50 ML IV ×3 (06:40→20:52)
[2024-01-26] MEDS: Acetaminophen 325 MG Tablet 650 MG PO (06:42)
[2024-01-26] MEDS: oxyCODONE 5 MG Tablet PO ×4 (06:42→22:50)
[2024-01-26 08:27] VITALS: BP 125/75; PULSE 72; RESP 18; TEMP 36.6; O2SAT 95
--- NOTE | 2024-01-26 08:38 | PCM.PN.SRG ---
Subjective Subjective Patient reports he is feeling better today but he has been medicated. He reports he is still having some pain below his umbilicus. He also reports it being painful and then change the wick. He reports that he is passing flatus and he tolerated more diet yesterday and he has this entire hospitalization. Objective Data Objective Data Vital Signs: Vital Signs Temp Pulse Resp BP Pulse Ox O2 Del Method O2 Flow Rate 97.8 F 72 18 125/75 H 95 Room Air 2 01/26/24 08:27 01/26/24 08:27 01/26/24 08:27 01/26/24 08:27 01/26/24 08:27 01/26/24 08:27 01/19/24 13:22 Oxygen Flow Rate (L/min) 2 Oxygen Delivery Method Room Air Weight: 221 lb 5.506 oz Body Mass Index (BMI) 27.6 Intake & Output: Intake and Output for Last 24 Hours 01/24/24 01/25/24 01/26/24 23:59 23:59 23:59 Intake Total 2376.25 / 2376.25 2818.5 / 2818.5 315 / 315 Output Total 1050 / 1050 815 / 815 0 / 0 Balance 1326.25 / 1326.25 2003.5 / 2002.5 315 / 315 Lab / Micro Data 01/26/24 05:15 01/26/24 05:15 Labs: Laboratory Results - last 24 hr 01/25/24 08:13: Vancomycin Trough 23.5 H 01/25/24 17:30: Random Vancomycin 15.3 H 01/26/24 05:15: WBC 11.3 H, RBC 3.77 L, Hgb 10.5 L, Hct 32.8 L, MCV 87.0, MCH 27.9, MCHC 32.0, RDW Std Deviation 41.9, RDW Coeff of Khadijah 13.3, Plt Count 637 H, MPV 9.1, Immature Gran % (Auto) 1.800 H, Neut % (Auto) 67.3, Lymph % (Auto) 17.4 L, [place] % (Auto) 9.3, Eos % (Auto) 3.6, Baso % (Auto) 0.6, Absolute Neuts (auto) 7.6, Absolute Lymphs (auto) 1.96, Nucleated RBC % 0, Sodium 142, Potassium 3.6, Chloride 108 H, Carbon Dioxide 31.0, Anion Gap 3 L, BUN 4 L, Creatinine 1.49 H, Estim Creat Clear Calc 76.40, Est GFR (MDRD) Af Amer 66, Est GFR (MDRD) Non-Af 55 L, BUN/Creatinine Ratio 2.7 L, Glucose 100, Calcium 8.2 L, Phosphorus 4.5, Magnesium 2.0 Micro: Microbiology 01/24/24 12:35 Wound - Abdominal Gram Stain - Final 01/24/24 12:35 Wound - Abdominal Wound Culture - Final Enterococcus faecalis 01/19/24 00:01 Aspirate - Abdominal Gram Stain - Final 01/19/24 00:01 Aspirate - Abdominal Wound Culture - Final Enterococcus faecalis Streptococcus group G Escherichia coli Pseudomonas aeruginosa 01/19/24 00:01 Aspirate - Abdominal Anaerobic Culture - Final Parabacteroides distasonis Bacteroides ovatus Bacteroides fragilis 01/18/24 18:41 Blood Culture (Wb) - Anticubital Left Blood Culture - Final No growth in 5 days. 01/18/24 19:00 Blood Culture (Wb) - Anticubital Right Blood Culture - Final No growth in 5 days. 01/18/24 20:49 Urine, Clean Catch Urine Culture - Final Culture exhibits no growth. Physical Exam Const oriented x3 and no apparent distress Resp normal respiratory effort GI soft to palpation Inspection: Negative for abdominal distention Palpation: tender Assessment & Plan Assessment/Plan (1) S/P exploratory laparotomy: PLAN: The patient says he is feeling better. I changed the packing today and seems to be less purulent. The base of the wound seems beefy red. The patient reports he is tolerated more food yesterday than he has in the past. His creatinine slightly bumped today so I believe he may still be dehydrated so I will give him a fluid bolus today instead of changing his rate. Patient's white count also slightly increased. The patient's cultures were checked and all of the culture bacteria seem susceptible to the vancomycin he is already on. Unsure if the vancomycin is worsening his kidney function or if it is dehydration. I will rehydrate him today and recheck tomorrow. Continue dressing changes. Continue to encourage ambulation. Db Barbosa MD Pager: [facility] [address] [place] [address], [address] [place] [address] Office:
[2024-01-26] MEDS: Ondansetron 4 MG/2 ML Vial IV (08:46)
[2024-01-26] MEDS: Pantoprazole Sodium 40 MG in 0.9% Normal Saline (100mL MB+) 100 ML 330 MG IV (08:51)
[2024-01-26] MEDS: 0.9% Normal Saline (1000mL) 1,000 ML 300 ML IV (10:23)
[2024-01-26 15:36] VITALS: BP 123/71; PULSE 77; RESP 17; TEMP 36.8; O2SAT 97
[2024-01-26 18:40] LABS: Vancomycin, Trough Level 19.2 ug/mL (5.0-15.0)
[2024-01-26] MEDS: Vancomycin Trough/Random Due 1 LAB MC (18:41)
--- NOTE | 2024-01-26 19:01 | PCM.RX.CS ---
Consult Antibiotic Management Pharmacy has been consulted to manage selected antibiotic: Vancomycin Type of Intervention Type of Consult: Follow-up Labs Labs: Sodium 142 mmol/L (136-145) 01/26/24 05:15 Potassium 3.6 mmol/L (3.5-5.1) 01/26/24 05:15 Chloride 108 mmol/L (98-107) H 01/26/24 05:15 Carbon Dioxide 31.0 mmol/L (21.0-32.0) 01/26/24 05:15 Anion Gap 3 (5-15) L 01/26/24 05:15 BUN 4 mg/dL (7-18) L 01/26/24 05:15 Creatinine 1.49 mg/dL (0.70-1.30) H 01/26/24 05:15 Est GFR (MDRD) Af Amer 66 mL/min (>60) 01/26/24 05:15 Est GFR (MDRD) Non-Af 55 mL/min (>60) L 01/26/24 05:15 BUN/Creatinine Ratio 2.7 RATIO (10-20) L 01/26/24 05:15 Glucose 100 mg/dL (74-106) 01/26/24 05:15 Vancomycin Trough 19.2 ug/mL (5.0-15.0) H 01/26/24 18:00 Random Vancomycin 15.3 ug/mL (0.0-15.0) H 01/25/24 17:30 Microbiology Microbiology: Microbiology 01/24/24 12:35 Wound - Abdominal Gram Stain - Final 01/24/24 12:35 Wound - Abdominal Wound Culture - Final Enterococcus faecalis 01/24/24 12:35 Wound - Abdominal Anaerobic Culture - Preliminary 01/19/24 00:01 Aspirate - Abdominal Gram Stain - Final 01/19/24 00:01 Aspirate - Abdominal Wound Culture - Final Enterococcus faecalis Streptococcus group G Escherichia coli Pseudomonas aeruginosa 01/19/24 00:01 Aspirate - Abdominal Anaerobic Culture - Final Parabacteroides distasonis Bacteroides ovatus Bacteroides fragilis 01/18/24 18:41 Blood Culture (Wb) - Anticubital Left Blood Culture - Final No growth in 5 days. 01/18/24 19:00 Blood Culture (Wb) - Anticubital Right Blood Culture - Final No growth in 5 days. 01/18/24 20:49 Urine, Clean Catch Urine Culture - Final Culture exhibits no growth. Dosing Weight Weight used for dosin.4 kg Estimated Creatinine Clearance Estimated Creatinine Clearance: 76 Goal Trough Goal Trough: 15-20 mcg/mL Pharmacy Plan for Drug Dosing Pharmacy Plan for Drug Dosing: Vancomycin trough level of 19.2, drawn approximately 6.5hrs post-dose, was within the target range of 15-20. Will continue dosing at 750mg q8h, and will re-draw a trough level in two days. Pharmacy Service will continue to monitor and adjust dosing as required. Follow-Up Labs Follow-Up Labs: Trough: Vancomycin Date/Time Labs Ordered Labs to be done on [date and time ordered]: 01/28/24 @3099
[2024-01-26 20:46] VITALS: BP 131/73; PULSE 78; RESP 18; TEMP 36.8; O2SAT 96
[2024-01-26] MEDS: Menthol/Lanolin/Calamine/Znox 113 GM Tube 1 APPLIC TOPICAL (20:53)
[2024-01-27] MEDS: Vancomycin HCl 750 MG in 0.9% Normal Saline (250mL Bag) 250 ML 250 MG IV (03:59)
[2024-01-27 04:00] VITALS: BP 140/83; PULSE 73; RESP 18; TEMP 36.9; O2SAT 98
[2024-01-27] MEDS: oxyCODONE 5 MG Tablet PO (04:06)
[2024-01-27] MEDS: Piperacil/Tazobactam 3.375 GM in 0.9% Normal Saline (50mL MB+) 50 ML IV ×3 (06:45→22:06)
[2024-01-27] MEDS: Heparin Injection (Vial) 5,000 UNIT/ML VIAL 5000 UNIT SC ×3 (06:45→21:59)
[2024-01-27 07:02] LABS: Absolute Neutrophil Count 7.8 X10^3/uL (2.0-7.7); Basophil# 0.12 X10^3/uL; Basophil% 1.1 % (0-1); Eosinophil# 0.46 X10^3/uL; Eosinophils% 4.1 % (0-5); Hematocrit 33.5 % (40-54); Hemoglobin 10.5 g/dL (13.0-16.5); Lymphocyte % 12.6 % (19-41); Mean Corp Hgb Conc 31.3 g/dL (32-36); Mean Corpuscular Hgb 27.4 pg (27.0-32.0); Mean Corpuscular Volume 87.5 fL (80-94); Mean Platelet Vol. 9.6 fl (6.2-12.0); Monocyte# 1.12 X10^3/uL; Monocyte% 10.1 % (0-10); NRBC Flagged by Analyzer 0 % (0-5); Neutrophil % 70.1 % (47-70); Platelet Count 686 K/mm3 (150-450); RBC Distribution Width CV 13.5 % (11.6-14.6); RBC Distribution Width SD 42.9 fl (35.1-43.9); Red Blood Count 3.83 M/mm3 (4.6-6.2); White Blood Count 11.1 K/mm3 (4.4-11.0)
[2024-01-27 07:33] LABS: Anion Gap 4 (5-15); BUN 6 mg/dL (7-18); BUN/Creat Ratio 3.8 RATIO (10-20); Calcium,Total 8.3 mg/dL (8.5-10.1); Chloride 108 mmol/L (98-107); Creatinine, Serum 1.56 mg/dL (0.70-1.30); EST Glomerular Filtration Rate 52 mL/min (>60); Est Glom Filt Rate - Afr Amer 63 mL/min (>60); Estimated Creatinine Clearance 72.97 ml/min; Glucose 125 mg/dL (74-106); Potassium 3.2 mmol/L (3.5-5.1); Sodium Level 142 mmol/L (136-145)
[2024-01-27] MEDS: Pantoprazole Sodium 40 MG in 0.9% Normal Saline (100mL MB+) 100 ML 330 MG IV (08:27)
--- NOTE | 2024-01-27 09:07 | PN.SURG_ITS ---
Subjective Subjective Patient seen and examined during AM rounds. He is found resting in bed. He states he is uncertain how he is feeling and wants to be told how he is doing. His , who is at bedside, shares that she believes her is not doing as well as yesterday. Mr. Ragland does confirm that he is eating and having regu lar bowel function. Objective Data Objective Data Vital Signs: Vital Signs Temp Pulse Resp BP Pulse Ox O2 Del Method O2 Flow Rate 98.5 F 73 18 140/83 H 98 Room Air 2 01/27/24 04:00 01/27/24 04:00 01/27/24 04:00 01/27/24 04:00 01/27/24 04:00 01/27/24 04:00 01/19/24 13:22 Oxygen Flow Rate (L/min) 2 Oxygen Delivery Method Room Air Weight: 221 lb 5.506 oz Body Mass Index (BMI) 27.6 Intake & Output: Intake and Output for Last 24 Hours 01/25/24 01/26/24 01/27/24 23:59 23:59 23:59 Intake Total 2818.5 / 2818.5 3640.83 / 3640.83 739.17 / 739.17 Output Total 815 / 815 600 / 600 0 / 0 Balance / 2002. 3040.83 / 3040.83 739.17 / 739.17 Lab / Micro Data 01/27/24 06:18 01/27/24 06:18 Labs: Laboratory Results - last 24 hr 01/26/24 18:00: Vancomycin Trough 19.2 H 01/27/24 06:18: WBC 11.1 H, RBC 3.83 L, Hgb 10.5 L, Hct 33.5 L, MCV 87.5, MCH 27.4, MCHC 31.3 L, RDW Std Deviation 42.9, RDW Coeff of Khadijah 13.5, Plt Count 686 H, MPV 9.6, Immature Gran % (Auto) 2.000 H, Neut % (Auto) 70.1 H, Lymph % (Auto) 12.6 L, [place] % (Auto) 10.1 H, Eos % (Auto) 4.1, Baso % (Auto) 1.1 H, Absolute N euts (auto) 7.8 H, Absolute Lymphs (auto) 1.40, Nucleated RBC % 0, Sodium 142, Potassium 3.2 L, Chloride 108 H, Carbon Dioxide 30.0, Anion Gap 4 L, BUN 6 L, Creatinine 1.56 H, Estim Creat Clear Calc 72.97, Est GFR (MDRD) Af Amer 63, Est GFR (MDRD) Non-Af 52 L, BUN/Creatinine Ratio 3.8 L, Glucose 125 H, Calcium 8.3 L Micro: Microbiology 01/24/24 12:35 Wound - Abdominal Gram Stain - Final 01/24/24 12:35 Wound - Abdominal Wound Culture - Final Enterococcus faecalis 01/24/24 12:35 Wound - Abdominal Anaerobic Culture - Preliminary 01/19/24 00:01 Aspirate - Abdominal Gram Stain - Final 01/19/24 00:01 Aspirate - Abdominal Wound Culture - Final Enterococcus faecalis Streptococcus group G Escherichia coli Pseudomonas aeruginosa 01/19/24 00:01 Aspirate - Abdominal Anaerobic Culture - Final Parabacteroides distasonis Bacteroides ovatus Bacteroides fragilis 01/18/24 18:41 Blood Culture (Wb) - Anticubital Left Blood Culture - Final No growth in 5 days. 01/18/24 19:00 Blood Culture (Wb) - Anticubital Right Blood Culture - Final No growth in 5 days. 01/18/24 20:49 Urine, Clean Catch Urine Culture - Final Culture exhibits no growth. Physical Exam Const oriented x3 Constitutional Narrative: Patient appears anxious and in mild distress with apprehension Resp normal respiratory effort GI GI Narrative: Nondistended, soft, nontender to palpation, midline incision is now opened inferiorly and there is a brown?colored patch of the fascia where the umbilicus has been displaced. This tracks partially inferiorly but does not appear to break through the fascial layer. Fascial suture material is visible. There is a small amount of drainage but this is largely bloody. There is a very faint odor to this drainage. Assessment & Plan Assessment/Plan (1) S/P exploratory laparotomy: PLAN: Patient is postoperative day 9 from exploratory laparotomy with drainage of deep space abscess. Over the weekend he did have to have the inferior portion of his wound opened and was found to have purulent drainage. This is now growing E faecalis. This appears to be the same Enterococcus that he has grown previously and is pansensitive. There is minimal drainage today with only slight area of brown discoloration of the fascia. I shared with patient and his that this will be kept under close watch and could require operative debridement, however, given the ramifications I would like to avoid this scenario if at all possible and therefore keep the area wide open and draining as this infection seems to be primarily made of anaerobic bacteria. I am concerned that patient's vancomycin is leading to deteriorating renal function as he has had persistently high vancomycin troughs. I have discussed patient's case with pharmacology now for the second time and they suggest that Zosyn monotherapy may be appropriate, however, with patient developing a persistent infection in light of concurrent broader therapy I am reluctant to narrow the antibiotic spectrum at this time. Thus, I am proceeding with their other recommendation to pursue infectious disease consult. Infectious disease has been reached and we will plan to see the patient this afternoon. Their assistance is greatly appreciated. Mr. Ragland does have evidence of acute kidney injury and this is despite receiving a bolus yesterday. I have stressed the importance of maintaining adequate hydration and he shares that sometimes when he drinks abundantly he decreases his appetite. Thus, I have suggested that he prioritize protein shakes to boost the caloric density. I did discuss targeting at a lower trough with pharmacy as a means of trying to preserve patient's kidney function as well. Continue dressing changes. Continue to encourage ambulation. Trevor Hahn MD General Surgery Endocrine Surgery Pager: [facility] [address] [place] [address], [facility], [address] [place] [address] Office: [phone] Charges/Coding Visit Charges Inpatient E&M: 58590 Subs Hosp L2
[2024-01-27 10:39] VITALS: BP 128/65; PULSE 83; RESP 18; TEMP 36.8; O2SAT 95
[2024-01-27] MEDS: Menthol/Lanolin/Calamine/Znox 113 GM Tube 1 APPLIC TOPICAL ×2 (10:45→22:03)
[2024-01-27] MEDS: Acetaminophen 325 MG Tablet 650 MG PO ×3 (10:47→22:49)
[2024-01-27 11:23] LABS: Vancomycin, Trough Level 19.8 ug/mL (5.0-15.0)
--- NOTE | 2024-01-27 11:36 | PHA.PHARE_ITS ---
Consult Antibiotic Management Pharmacy has been consulted to manage selected antibiotic: Vancomycin Type of Intervention Type of Consult: Follow-up Suspected Infection Suspected Infection: Skin/Soft tissue Prior Doses of Antibiotics Prior Doses of Antibiotics Received/Current Regimen: Vancomycin 750 mg Q8H, last dose 01/27/24 @ 0359, patient is also on piperacillin/ tazobactam q8h. Labs Labs: Sodium 142 mmol/L (136-145) 01/27/24 06:18 Potassium 3.2 mmol/L (3.5-5.1) L 01/27/24 06:18 Chloride 108 mmol/L (98-107) H 01/27/24 06:18 Carbon Dioxide 30.0 mmol/L (21.0-32.0) 01/27/24 06:18 Anion Gap 4 (5-15) L 01/27/24 06:18 BUN 6 mg/dL (7-18) L 01/27/24 06:18 Creatinine 1.56 mg/dL (0.70-1.30) H 01/27/24 06:18 Est GFR (MDRD) Af Amer 63 mL/min (>60) 01/27/24 06:18 Est GFR (MDRD) Non-Af 52 mL/min (>60) L 01/27/24 06:18 BUN/Creatinine Ratio 3.8 RATIO (10-20) L 01/27/24 06:18 Glucose 125 mg/dL (74-106) H 01/27/24 06:18 Vancomycin Trough 19.8 ug/mL (5.0-15.0) H 01/27/24 10:43 Random Vancomycin 15.3 ug/mL (0.0-15.0) H 01/25/24 17:30 Microbiology Microbiology: Microbiology 01/24/24 12:35 Wound - Abdominal Gram Stain - Final 01/24/24 12:35 Wound - Abdominal Wound Culture - Final Enterococcus faecalis 01/24/24 12:35 Wound - Abdominal Anaerobic Culture - Preliminary 01/19/24 00:01 Aspirate - Abdominal Gram Stain - Final 01/19/24 00:01 Aspirate - Abdominal Wound Culture - Final Enterococcus faecalis Streptococcus group G Escherichia coli Pseudomonas aeruginosa 01/19/24 00:01 Aspirate - Abdominal Anaerobic Culture - Final Parabacteroides distasonis Bacteroides ovatus Bacteroides fragilis 01/18/24 18:41 Blood Culture (Wb) - Anticubital Left Blood Culture - Final No growth in 5 days. 01/18/24 19:00 Blood Culture (Wb) - Anticubital Right Blood Culture - Final No growth in 5 days. 01/18/24 20:49 Urine, Clean Catch Urine Culture - Final Culture exhibits no growth. Dosing Weight Weight used for dosin.4 kg Estimated Creatinine Clearance Estimated Creatinine Clearance: ~73 Goal Trough Goal Trough: 10-15 mcg/mL Pharmacy Plan for Drug Dosing Pharmacy Plan for Drug Dosing: Trough = 19.8, new trough goal = 10-15, will reduce dose to 500 mg Q8H. Pharmacy Service will continue to monitor and adjust dosing as required. Follow-Up Labs Follow-Up Labs: Trough: Vancomycin Date/Time Labs Ordered Labs to be done on [date and time ordered]: 01/28/24 @ 5480
[2024-01-27] MEDS: Potassium Chloride 10mEq/100mL 10 MEQ/100 ML IV.SOLN. 70 MEQ IV BOLUS (11:49)
--- NOTE | 2024-01-27 13:32 | CON.PCM.ID_ITS ---
Assessment & Plan Assessment/Plan (1) Infection following a procedure, deep incisional surgical site, initial encounter: PLAN: will treat with Zosyn; will D/C Vanco; supportive care HPI Consult Data Date of Consult: 01/27/24 HPI Narrative Reason for Consultation: post-op bowel infection HPI Narrative: TERRIE ALLEN, is a 43 M who presents recent bowel surgery including hemicolectomy in December; admitted for bowel infection s/p re-exploration. Micro data reviewed. Currently on IV Vanco+Zosyn. [facility] Medical History (Updated 01/24/24 @ 00:03 by Kathryn Mercedes) Collar bone fracture Home Medications acetaminophen 500 mg tablet 500 mg PO Q6H PRN PRN Pain 1-10 Or Fever #0 tabs 01/16/24 [Rx Last Taken Unknown] amoxicillin 875 mg-potassium clavulanate 125 mg tablet 1 tab PO BID atb 9 days #18 tabs 01/16/24 [Rx Last Taken Unknown] celecoxib 200 mg capsule 200 mg PO DAILY see md 7 days #7 caps 01/16/24 [Rx Last Taken Unknown] oxycodone 5 mg tablet 5 mg PO Q6H PRN PRN Pain Score 4-10 2 days #6 tabs 01/16/24 [Rx Last Taken Unknown] levofloxacin 750 mg tablet 750 mg PO DAILY atb #14 tabs 01/17/24 [Rx Last Taken Unknown] Allergy/AdvReac Type Severity Reaction Status Date / Time No Known Allergies Allergy Verified 01/18/24 17:41 Surgical History (Updated 01/19/24 @ 08:[address] Veronica Garner MD) H/O hernia repair Social History Smoking Status: Never smoker Physical Exam Narrative Alert/responsive. Does not look toxic. heart S1-S2; lungs clear; abd soft/tender No erythema Lab / Micro Data 01/27/24 06:18 01/27/24 06:18 Labs: Laboratory Results - last 24 hr 01/26/24 18:00: Vancomycin Trough 19.2 H 01/27/24 06:18: WBC 11.1 H, RBC 3.83 L, Hgb 10.5 L, Hct 33.5 L, MCV 87.5, MCH 27.4, MCHC 31.3 L, RDW Std Deviation 42.9, RDW Coeff of Khadijah 13.5, Plt Count 686 H, MPV 9.6, Immature Gran % (Auto) 2.000 H, Neut % (Auto) 70.1 H, Lymph % (Auto) 12.6 L, Taliaferro % (Auto) 10.1 H, Eos % (Auto) 4.1, Baso % (Auto) 1.1 H, Absolute Neuts (auto) 7.8 H, Absolute Lymphs (auto) 1.40, Nucleated RBC % 0, Sodium 142, Potassium 3.2 L, Chloride 108 H, Carbon Dioxide 30.0, Anion Gap 4 L, BUN 6 L, Creatinine 1.56 H, Estim Creat Clear Calc 72.97, Est GFR (MDRD) Af Amer 63, Est GFR (MDRD) Non-Af 52 L, BUN/Creatinine Ratio 3.8 L, Glucose 125 H, Calcium 8.3 L 01/27/24 10:43: Vancomycin Trough 19.8 H Micro: Microbiology 01/24/24 12:35 Wound - Abdominal Gram Stain - Final 01/24/24 12:35 Wound - Abdominal Wound Culture - Final Enterococcus faecalis 01/24/24 12:35 Wound - Abdominal Anaerobic Culture - Preliminary
--- NOTE | 2024-01-27 15:11 | WOUNDNOTE ---
wound photo: abdomen
[2024-01-27 15:20] VITALS: BP 127/78; PULSE 68; RESP 16; TEMP 36.9; O2SAT 97
[2024-01-27] MEDS: 0.9% Saline Lock 10 ML Syringe IV (15:28)
[2024-01-27] MEDS: Potassium Chloride Oral Tablet 20 MEQ 40 MEQ PO (16:49)
[2024-01-27 21:43] VITALS: BP 131/70; PULSE 76; RESP 18; TEMP 36.9; O2SAT 96
[2024-01-27] MEDS: 0.45% Normal Saline 1,000 ML 60 ML IV (22:02)
[2024-01-28 05:39] VITALS: BP 131/69; PULSE 70; RESP 18; TEMP 36.9; O2SAT 93
[2024-01-28] MEDS: Piperacil/Tazobactam 3.375 GM in 0.9% Normal Saline (50mL MB+) 50 ML IV ×3 (05:42→21:44)
[2024-01-28] MEDS: Heparin Injection (Vial) 5,000 UNIT/ML VIAL 5000 UNIT SC ×3 (05:43→21:44)
[2024-01-28 06:54] LABS: Absolute Lymphocyte Count 1.63 X10^3/uL (0.83-4.51); Absolute Neutrophil Count 6.2 X10^3/uL (2.0-7.7); Eosinophil# 0.45 X10^3/uL; Eosinophils% 4.7 % (0-5); Hematocrit 34.6 % (40-54); Hemoglobin 10.8 g/dL (13.0-16.5); Lymphocyte # 1.63 X10^3/ul (0.83-4.51); Mean Corp Hgb Conc 31.2 g/dL (32-36); Mean Corpuscular Hgb 27.1 pg (27.0-32.0); Mean Corpuscular Volume 86.7 fL (80-94); Mean Platelet Vol. 9.8 fl (6.2-12.0); Monocyte# 1.14 X10^3/uL; Monocyte% 11.9 % (0-10); NRBC Flagged by Analyzer 0 % (0-5); Neutrophil # 6.16 X10^3/uL (2.7-7.7); Platelet Count 708 K/mm3 (150-450); RBC Distribution Width CV 13.3 % (11.6-14.6); RBC Distribution Width SD 41.9 fl (35.1-43.9); Red Blood Count 3.99 M/mm3 (4.6-6.2); White Blood Count 9.6 K/mm3 (4.4-11.0)
[2024-01-28 07:39] VITALS: BP 130/77; PULSE 70; RESP 16; TEMP 36.6; O2SAT 96
[2024-01-28] MEDS: Acetaminophen 325 MG Tablet 650 MG PO ×3 (07:41→21:49)
--- NOTE | 2024-01-28 07:44 | PCM.PN.SRG ---
Subjective Subjective Patient seen and examined during AM rounds. He reports that he is tired this morning after being up frequently having to urinate. Otherwise he states that he is doing well and confirms that he continues to tolerate a transitional diet (provided by his ) without difficulty. Objective Data Objective Data Vital Signs: Vital Signs Temp Pulse Resp BP Pulse Ox O2 Del Method O2 Flow Rate 98 F 70 16 130/77 H 96 Room Air 2 01/28/24 07:39 01/28/24 07:39 01/28/24 07:39 01/28/24 07:39 01/28/24 07:39 01/28/24 07:39 01/19/24 13:22 Oxygen Flow Rate (L/min) 2 Oxygen Delivery Method Room Air Weight: 221 lb 5.506 oz Body Mass Index (BMI) 27.6 Intake & Output: Intake and Output for Last 24 Hours 01/26/24 01/27/24 01/28/24 23:59 23:59 23:59 Intake Total 3640.83 / 3640.83 1899.17 / 1899.17 50 / 50 Output Total 600 / 600 600 / 600 0 / 0 Balance 3040.83 / 3040.83 1299.17 / 1299.17 50 / 50 Lab / Micro Data 01/28/24 05:58 01/27/24 06:18 Labs: Laboratory Results - last 24 hr 01/27/24 10:43: Vancomycin Trough 19.8 H 01/28/24 05:58: WBC 9.6, RBC 3.99 L, Hgb 10.8 L, Hct 34.6 L, MCV 86.7, MCH 27.1, MCHC 31.2 L, RDW Std Deviation 41.9, RDW Coeff of Khadijah 13.3, Plt Count 708 H, MPV 9.8, Immature Gran % (Auto) 1.400 H, Neut % (Auto) 64.0, Lymph % (Auto) 17.0 L, Evans % (Auto) 11.9 H, Eos % (Auto) 4.7, Baso % (Auto) 1.0, Absolute Neuts (auto) 6.2, Absolute Lymphs (auto) 1.63, Nucleated RBC % 0 Micro: Microbiology 01/24/24 12:35 Wound - Abdominal Gram Stain - Final 01/24/24 12:35 Wound - Abdominal Wound Culture - Final Enterococcus faecalis 01/24/24 12:35 Wound - Abdominal Anaerobic Culture - Preliminary 01/19/24 00:01 Aspirate - Abdominal Gram Stain - Final 01/19/24 00:01 Aspirate - Abdominal Wound Culture - Final Enterococcus faecalis Streptococcus group G Escherichia coli Pseudomonas aeruginosa 01/19/24 00:01 Aspirate - Abdominal Anaerobic Culture - Final Parabacteroides distasonis Bacteroides ovatus Bacteroides fragilis 01/18/24 18:41 Blood Culture (Wb) - Anticubital Left Blood Culture - Final No growth in 5 days. 01/18/24 19:00 Blood Culture (Wb) - Anticubital Right Blood Culture - Final No growth in 5 days. 01/18/24 20:49 Urine, Clean Catch Urine Culture - Final Culture exhibits no growth. Physical Exam Const oriented x3 and no apparent distress Constitutional Narrative: Patient appears anxious and in mild distress with apprehension Resp normal respiratory effort GI GI Narrative: Nondistended, soft, nontender to palpation, midline incision is now opened inferiorly and there is a brown?colored patch of the fascia where the umbilicus has been displaced. There is partial tracking deeply. A small area of soft tissue necrosis was identified and this denuded tissue was removed. Fascial suture material is visible. No significant drainage on gauze removed from wound. Assessment & Plan Assessment/Plan (1) S/P exploratory laparotomy: PLAN: Patient is postoperative day 10 from exploratory laparotomy with drainage of deep space abscess. Over the weekend he did have to have the inferior portion of his wound opened and was found to have purulent drainage. This is now growing E faecalis. This appears to be the same Enterococcus that he has grown previously and is pansensitive. There is no significant drainage today but I did remove about 1 cm? of necrotic tissue from the wound base. Yesterday, after consultation with both pharmacy and infectious disease Zosyn monotherapy was recommended and vancomycin was discontinued. Encouragingly, patient's white blood cell count is normal today and he remains afebrile, however, his platelet count continues to rise. I believe this is due to reactive thrombocytosis, but do not want to overlook possibility of something occult. Mr. Ragland does have evidence of acute kidney injury and malnutrition. Labs are currently pending but patient states that he has been urinating frequently. Yesterday we discussed improving his protein intake and he shared relative intolerance of his protein shakes?likely owing to a food sensitivity. Therefore, he has been approved to take protein supplements that are included in food prepared by his . Continue dressing changes. Continue to encourage ambulation. Trevor Hahn MD General Surgery Endocrine Surgery Pager: [facility] [address] [place] [address], [address] [place] [id number] Office: [phone] Charges/Coding Visit Charges Inpatient E&M: 77331 Subs Hosp L2
[2024-01-28 07:46] LABS: ALB/GLOB Ratio 0.6 RATIO (0.9-2.4); AST(SGOT) 41 U/L (15-37); Alanine Aminotransfer ALT/SGPT 68 U/L (16-61); Albumin, Serum 2.4 g/dL (3.2-5.0); Alkaline Phosphatase 80 U/L (45-117); Anion Gap 4 (5-15); BUN 9 mg/dL (7-18); BUN/Creat Ratio 5.9 RATIO (10-20); Calcium,Total 8.9 mg/dL (8.5-10.1); Chloride 107 mmol/L (98-107); Creatinine, Serum 1.52 mg/dL (0.70-1.30); EST Glomerular Filtration Rate 53 mL/min (>60); Est Glom Filt Rate - Afr Amer 65 mL/min (>60); Estimated Creatinine Clearance 74.89 ml/min; Globulin 3.7 g/dL (2.2-4.2); Glucose 92 mg/dL (74-106); Magnesium 2.2 mg/dL (1.6-2.6); Phosphorus 3.1 mg/dL (2.5-4.9); Protein, Total 6.1 g/dL (6.4-8.2); Sodium Level 140 mmol/L (136-145)
[2024-01-28] MEDS: Menthol/Lanolin/Calamine/Znox 113 GM Tube 1 APPLIC TOPICAL ×2 (09:40→21:45)
[2024-01-28] MEDS: Pantoprazole Sodium 40 MG in 0.9% Normal Saline (100mL MB+) 100 ML 330 MG IV (10:12)
--- NOTE | 2024-01-28 13:04 | PCM.PN.ID ---
ID ID: Route of nutrition/ use of supplements: [] Nutritional Intake: [] IV Site: [] John Catheter: [] Patient had a relatively uneventful night. Ambulating to the bathroom well. Tolerating p.o. intake well. No fevers. On Zosyn. Laboratory studies reviewed. Alert responsive does not appear toxic. Vital signs reviewed. Abdomen soft LUZ drain with scant fluid. Assessment & Plan Assessment/Plan (1) Abscess, intra-abdominal, postoperative: PLAN: Clinically improving on Zosyn. Continue to follow clinically.
[2024-01-28 14:04] VITALS: BP 114/73; PULSE 82; RESP 18; TEMP 36.9; O2SAT 97
[2024-01-28] MEDS: 0.45% Normal Saline 1,000 ML 60 ML IV (14:06)
[2024-01-28 21:40] VITALS: BP 122/68; PULSE 67; RESP 18; TEMP 37.1; O2SAT 96
[2024-01-29 05:20] VITALS: BP 134/78; PULSE 66; RESP 18; TEMP 36.6; O2SAT 97
[2024-01-29] MEDS: Piperacil/Tazobactam 3.375 GM in 0.9% Normal Saline (50mL MB+) 50 ML IV (06:00)
[2024-01-29] MEDS: Heparin Injection (Vial) 5,000 UNIT/ML VIAL 5000 UNIT SC ×3 (06:00→21:55)
[2024-01-29] MEDS: 0.45% Normal Saline 1,000 ML 60 ML IV ×2 (06:00→22:15)
[2024-01-29] MEDS: Acetaminophen 325 MG Tablet 650 MG PO ×3 (06:01→20:24)
[2024-01-29 07:38] LABS: Absolute Neutrophil Count 5.6 X10^3/uL (2.0-7.7); Basophil% 1.1 % (0-1); Eosinophil# 0.38 X10^3/uL; Eosinophils% 4.3 % (0-5); Hematocrit 36.5 % (40-54); Hemoglobin 11.8 g/dL (13.0-16.5); Lymphocyte % 18.2 % (19-41); Mean Corp Hgb Conc 32.3 g/dL (32-36); Mean Corpuscular Hgb 28.1 pg (27.0-32.0); Mean Corpuscular Volume 86.9 fL (80-94); Mean Platelet Vol. 9.3 fl (6.2-12.0); Monocyte# 0.97 X10^3/uL; NRBC Flagged by Analyzer 0 % (0-5); Neutrophil # 5.63 X10^3/uL (2.7-7.7); Neutrophil % 64.1 % (47-70); Platelet Count 677 K/mm3 (150-450); RBC Distribution Width CV 13.3 % (11.6-14.6); RBC Distribution Width SD 41.8 fl (35.1-43.9); White Blood Count 8.8 K/mm3 (4.4-11.0)
[2024-01-29 07:53] LABS: Anion Gap 4 (5-15); BUN 12 mg/dL (7-18); BUN/Creat Ratio 8.5 RATIO (10-20); Calcium,Total 9.1 mg/dL (8.5-10.1); Chloride 107 mmol/L (98-107); Creatinine, Serum 1.42 mg/dL (0.70-1.30); EST Glomerular Filtration Rate 58 mL/min (>60); Est Glom Filt Rate - Afr Amer 70 mL/min (>60); Estimated Creatinine Clearance 80.17 ml/min; Glucose 96 mg/dL (74-106); Magnesium 2.3 mg/dL (1.6-2.6); Phosphorus 3.3 mg/dL (2.5-4.9); Sodium Level 140 mmol/L (136-145)
[2024-01-29 08:00] VITALS: BP 126/80; PULSE 60; RESP 16; TEMP 36.5; O2SAT 97
[2024-01-29] MEDS: Juven (unflavored) Packet 1 PACKET PO ×2 (08:16→15:57)
--- NOTE | 2024-01-29 08:43 | WOUNDNOTE ---
Dr Hahn and TRISTEN Dan had been in changed abdominal dressing this morning. LUZ drain was also pulled. Dr Hahn planning to come back this afternoon to assess the wound as well.
--- NOTE | 2024-01-29 09:10 | PN.SURG_ITS ---
Subjective Subjective Patient seen and examined during AM rounds. He reports that he is doing well and denies any acute events overnight. He confirms that he did have another formed bowel movement yesterday evening and denies any nausea. Objective Data Objective Data Vital Signs: Vital Signs Temp Pulse Resp BP Pulse Ox O2 Del Method O2 Flow Rate 97.7 F L 60 16 126/80 H 97 Room Air 2 01/29/24 08:00 01/29/24 08:00 01/29/24 08:00 01/29/24 08:00 01/29/24 08:00 01/29/24 08:00 01/19/24 13:22 Oxygen Flow Rate (L/min) 2 Oxygen Delivery Method Room Air Weight: 221 lb 5.506 oz Body Mass Index (BMI) 27.6 Intake & Output: Intake and Output for Last 24 Hours 01/27/24 01/28/24 01/29/24 23:59 23:59 23:59 Intake Total 1899.17 / 1899.17 1224 / 1224 1004 / 1004 Output Total 600 / 600 500 / 500 513 / 513 Balance 1299.17 / 1299.17 724 / 724 491 / 491 Lab / Micro Data 01/29/24 07:25 01/29/24 07:25 Labs: Laboratory Results - last 24 hr 01/29/24 06:24: WBC Cancelled, Corrected WBC Cancelled, RBC Cancelled, Hgb Cancelled, Hct Cancelled, MCV Cancelled, MCH Cancelled, MCHC Cancelled, RDW Std Deviation Cancelled, RDW Coeff of Khadijah Cancelled, Plt Count Cancelled, MPV Cancelled, Immature Gran % (Auto) Cancelled, Neut % (Auto) Cancelled, Lymph % (Auto) Cancelled, Pasco % (Auto) Cancelled, Eos % (Auto) Cancelled, Baso % (Auto) Cancelled, Absolute Neuts (auto) Cancelled, Absolute Lymphs (auto) Cancelled, Total Counted Cancelled, Neutrophils % (Manual) Cancelled, Band Neutrophils % Cancelled, Lymphocytes % (Manual) Cancelled, Monocytes % (Manual) Cancelled, Eosinophils % (Manual) Cancelled, Basophils % (Manual) Cancelled, Metamyelocytes % Cancelled, Myelocytes % Cancelled, Promyelocytes % Cancelled, Blast Cells % Cancelled, Plasma Cell % (Manual) Cancelled, Other Cells % Cancelled, Nucleated RBC % Cancelled, Nucleated RBCs/100 WBC Cancelled, Differential Comment Cancelled, Diff Path Review Cancelled, Hypersegmented Neuts Cancelled, Atypical Lymphocytes Cancelled, Reactive Lymphocytes Cancelled, Smudge Cells Cancelled, Toxic Granulation Cancelled, Toxic Vacuolation Cancelled, Dohle Bodies Cancelled, Claudio Rods Cancelled, Platelet Estimate Cancelled, Plt Morphology Comment Cancelled, RBC Morphology Cancelled 01/29/24 06:24: RBC Morphology Cancelled, Polychromasia Cancelled, Hypochromasia Cancelled, Basophilic Stippling Cancelled, Anisocytosis Cancelled, Microcytosis Cancelled, Macrocytosis Cancelled, Spherocytes Cancelled, Sickle Cells Cancelled, Target Cells Cancelled, Tear Drop Cells Cancelled, Ovalocytes Cancelled, Stomatocytes Cancelled, Peterson-Opp Bodies Cancelled, Nehemiah Cells Cancelled, Bite Cells Cancelled, Crenated Cell Cancelled, Acanthocytes (Spur) Cancelled, Rouleaux Cancelled, Schistocytes Cancelled, Sodium Cancelled, Potassium Cancelled, Chloride Cancelled, Carbon Dioxide Cancelled, Anion Gap Cancelled, BUN Cancelled, Creatinine Cancelled, Estim Creat Clear Calc Cancelled, Est GFR (MDRD) Af Amer Cancelled, Est GFR (MDRD) Non-Af Cancelled, BUN/Creatinine Ratio Cancelled, Glucose Cancelled, Calcium Cancelled, Phosphorus Cancelled, Magnesium Cancelled 01/29/24 07:25: WBC 8.8, RBC 4.20 L, Hgb 11.8 L, Hct 36.5 L, MCV 86.9, MCH 28.1, MCHC 32.3, RDW Std Deviation 41.8, RDW Coeff of Khadijah 13.3, Plt Count 677 H, MPV 9.3, Immature Gran % (Auto) 1.300 H, Neut % (Auto) 64.1, Lymph % (Auto) 18.2 L, Pasco % (Auto) 11.0 H, Eos % (Auto) 4.3, Baso % (Auto) 1.1 H, Absolute Neuts (aut o) 5.6, Absolute Lymphs (auto) 1.60, Nucleated RBC % 0, Sodium 140, Potassium 4.0, Chloride 107, Carbon Dioxide 29.0, Anion Gap 4 L, BUN 12, Creatinine 1.42 H , Estim Creat Clear Calc 80.17, Est GFR (MDRD) Af Amer 70, Est GFR (MDRD) Non-Af 58 L, BUN/Creatinine Ratio 8.5 L, Glucose 96, Calcium 9.1, Phosphorus 3.3, Magnesium 2.3 Micro: Microbiology 01/24/24 12:35 Wound - Abdominal Gram Stain - Final 01/24/24 12:35 Wound - Abdominal Wound Culture - Final Enterococcus faecalis 01/24/24 12:35 Wound - Abdominal Anaerobic Culture - Preliminary 01/19/24 00:01 Aspirate - Abdominal Gram Stain - Final 01/19/24 00:01 Aspirate - Abdominal Wound Culture - Final Enterococcus faecalis Streptococcus group G Escherichia coli Pseudomonas aeruginosa 01/19/24 00:01 Aspirate - Abdominal Anaerobic Culture - Final Parabacteroides distasonis Bacteroides ovatus Bacteroides fragilis 01/18/24 18:41 Blood Culture (Wb) - Anticubital Left Blood Culture - Final No growth in 5 days. 01/18/24 19:00 Blood Culture (Wb) - Anticubital Right Blood Culture - Final No growth in 5 days. 01/18/24 20:49 Urine, Clean Catch Urine Culture - Final Culture exhibits no growth. Physical Exam Const oriented x3 and no apparent distress Constitutional Narrative: Patient appears anxious and in mild distress with apprehension Resp normal respiratory effort GI GI Narrative: Nondistended, soft, nontender to palpation, midline incision is now opened inferiorly and there is a brown?colored patch of the fascia where the umbilicus has been displaced. There is partial tracking deeply but no free communication to the peritoneal cavity. The wound appears more moist at the base and once again a small area of soft tissue necrosis was identified and this denuded tissue was removed. Fascial suture material is visible. No significant drainage on gauze removed from wound. Assessment & Plan Assessment/Plan (1) S/P exploratory laparotomy: PLAN: Patient is postoperative day 11 from exploratory laparotomy with drainage of deep space abscess. Over the weekend he did have to have the inferior portion of his wound opened and was found to have purulent drainage. This is now growing E faecalis. This appears to be the same Enterococcus that he has grown previously and is pansensitive. Once again, there is no significant drainage today but I did remove about 1 cm? of necrotic tissue from the wound base. 2 days ago patient was transition to Zosyn monotherapy and infectious disease continues to provide consultation. Encouragingly, patient's white blood cell count is normal today and he remains afebrile. Previously he had evidence of reactive thrombocytosis, but this also appears to be improving today. Mr. Ragland does have evidence of acute kidney injury and malnutrition. Labs show a downtrend in his creatinine with some additional IV fluid and encouraging him to take more p.o. Given his perioperative malnutrition we are continuing to encourage protein intake. Continue dressing changes with dry gauze. Continue to encourage ambulation. Trevor Hahn MD General Surgery Endocrine Surgery Pager: [facility] [address] [place] [address], [facility], [address] [place] [address] Office: [phone] Charges/Coding Visit Charges Inpatient E&M: 55553 Subs Hosp L2
[2024-01-29] MEDS: Pantoprazole Sodium 40 MG in 0.9% Normal Saline (100mL MB+) 100 ML 330 MG IV (09:50)
[2024-01-29] MEDS: Ciprofloxacin 500 MG Tablet PO ×2 (10:45→21:55)
[2024-01-29] MEDS: Amox/Clavulanate 875 MG Tablet PO ×2 (12:28→21:55)
[2024-01-29 15:00] VITALS: BP 129/73; PULSE 74; RESP 18; TEMP 36.8; O2SAT 96
--- NOTE | 2024-01-29 16:09 | NURSING ---
All documentation by nursing technician, Emilio Pinto, reviewed by director school of nursing, Kylah IRAHETAN, RN.
--- NOTE | 2024-01-29 16:13 | CASEMGMT ---
Addendum entered by Manisha German 01/29/24 16:21: Per Dr. Hahn the pt will be going home on PO ATB. Original Note: Dr. Hahn came to talk to this RN CM. MD states that the pt will DC tomorrow and the MD is requesting [facility] be set up for the pt wound care. Pt does not have a PCP as he is parting ways with [place] d/t unhappiness. Pt given list of resources regarding new PCPs. Dr. Hahn states that he is willing to follow the pt case in regard to HHC. Pt denies wanting to see a list of local in-network HHC Agencies and the pt states that he would like [facility] as long as they are in-network. TC to [facility] and Lita states that they can accept the pt for SOC Saturday (SN). The pt states that she works from home and will be the teachable caregiver. [facility] updated. Pt denies further questions or concerns at this time.
[2024-01-29 21:52] VITALS: BP 119/74; PULSE 70; RESP 16; TEMP 37.1; O2SAT 96
[2024-01-30 03:33] VITALS: BP 126/79; PULSE 71; RESP 16; TEMP 36.6; O2SAT 97
[2024-01-30] MEDS: Acetaminophen 325 MG Tablet 650 MG PO ×3 (03:37→17:14)
[2024-01-30] MEDS: Heparin Injection (Vial) 5,000 UNIT/ML VIAL 5000 UNIT SC (06:35)
[2024-01-30 07:30] LABS: Absolute Lymphocyte Count 1.54 X10^3/uL (0.83-4.51); Absolute Neutrophil Count 7.7 X10^3/uL (2.0-7.7); Basophil# 0.13 X10^3/uL; Basophil% 1.2 % (0-1); Eosinophil# 0.47 X10^3/uL; Eosinophils% 4.2 % (0-5); Hematocrit 37.3 % (40-54); Hemoglobin 11.7 g/dL (13.0-16.5); Lymphocyte # 1.54 X10^3/ul (0.83-4.51); Lymphocyte % 13.7 % (19-41); Mean Corp Hgb Conc 31.4 g/dL (32-36); Mean Corpuscular Hgb 27.1 pg (27.0-32.0); Mean Corpuscular Volume 86.3 fL (80-94); Mean Platelet Vol. 9.6 fl (6.2-12.0); Monocyte# 1.28 X10^3/uL; Monocyte% 11.4 % (0-10); NRBC Flagged by Analyzer 0 % (0-5); Neutrophil % 68.5 % (47-70); Platelet Count 659 K/mm3 (150-450); RBC Distribution Width CV 13.3 % (11.6-14.6); RBC Distribution Width SD 41.9 fl (35.1-43.9); Red Blood Count 4.32 M/mm3 (4.6-6.2); White Blood Count 11.2 K/mm3 (4.4-11.0)
[2024-01-30 08:12] LABS: Anion Gap 6 (5-15); BUN 16 mg/dL (7-18); BUN/Creat Ratio 11.7 RATIO (10-20); Calcium,Total 9.4 mg/dL (8.5-10.1); Chloride 107 mmol/L (98-107); Creatinine, Serum 1.37 mg/dL (0.70-1.30); EST Glomerular Filtration Rate 60 mL/min (>60); Est Glom Filt Rate - Afr Amer 73 mL/min (>60); Glucose 91 mg/dL (74-106); Magnesium 2.2 mg/dL (1.6-2.6); Phosphorus 3.5 mg/dL (2.5-4.9); Potassium 4.1 mmol/L (3.5-5.1); Sodium Level 138 mmol/L (136-145)
--- NOTE | 2024-01-30 08:20 | WOUNDNOTE ---
Dr Hahn and TRISTEN Dan had been in to see patient this am. plan is for discharge home today.
[2024-01-30 08:30] VITALS: BP 112/67; PULSE 74; RESP 18; TEMP 36.7; O2SAT 94
[2024-01-30] MEDS: Juven (unflavored) Packet 1 PACKET PO (08:39)
[2024-01-30] MEDS: Amox/Clavulanate 875 MG Tablet PO (08:40)
--- NOTE | 2024-01-30 10:57 | CT_ITS ---
STUDY: CT ABDOMEN AND PELVIS WITH CONTRAST REASON FOR EXAM: Male, 43 years old. 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 Oral and amp;amp; IV Gastrografin and amp;amp; 100mL Isovue-300 was administered. Sagittal and coronal images were reconstructed. Individualized dose optimization techniques were used for this CT. COMPARISON: Comparison is made with prior study January 18, 2024. FINDINGS: There are small bilateral pleural effusions with bibasilar infiltration and/or atelectasis is worse at the right lung base. The visualized portions of the heart are within normal limits. Normal liver. Normal gallbladder and extrahepatic biliary system. Normal spleen. Normal pancreas. Normal bilateral adrenal glands. Normal right kidney. Normal left kidney. Normal visualized stomach. Normal small intestine. The patient is status post right hemicolectomy. Increased markings are seen in the peritoneal fat at the operative site most likely postoperative in nature. There is evidence of a 3.8 cm x 3 cm walled off fluid collection just caudad to the anastomotic site. Adjacent terminal ileum is seen. There is evidence of thickening of the distal ileum. Sigmoid diverticulosis. Normal abdominal aorta. Normal inferior vena cava. Normal retroperitoneum. Normal urinary bladder. Normal abdominal wall. Normal osseous structures. CT/Abdomen/Pelvis WITH Contrast IMPRESSION: Status post right hemicolectomy with postoperative changes. There is a 3.8 side by 3 cm walled off fluid collection in the mesenteric fat at the operative site. Previously, this was more of a phlegmon. No evidence of bowel obstruction. Sigmoid diverticulosis. Electronically Signed: Charlie Melo MD at 14:16 EDT ,
[2024-01-30] MEDS: 0.9% Normal Saline (500mL Bag) 500 ML 999 ML IV (12:10)
[2024-01-30] MEDS: Ciprofloxacin 500 MG Tablet PO (14:05)
[2024-01-30 14:30] VITALS: BP 126/76; PULSE 82; RESP 16; TEMP 37.3
[2024-01-30] MEDS: 0.45% Normal Saline 1,000 ML 60 ML IV (15:48)
--- NOTE | 2024-01-30 15:57 | CASEMGMT ---
Addendum entered by Keren Rogers 01/30/24 16:01: Lita @ [facility] notified pt is not being discharged today and may be getting transferred to tertiary facility. Original Note: ADDI SAPP NOTE: Call placed to [facility] and VM left requesting call back for update. Erika WEISS RN CM
--- NOTE | 2024-01-30 16:23 | CASEMGMT ---
ADDI SAPP NOTE: Insurance review for hospitals In-network with? Insurance if transfer is recommended is as follows: [facility], [place], [facility], [facility], [facility], [facility], [facility] ([facility]), and . Erika WEISS RN CM
--- NOTE | 2024-01-30 16:24 | CASEMGMT ---
ADDI CM NOTE: Insurance review for hospitals In-network with?[facility] PPO Insurance if transfer is recommended is as follows: [facility], [place], [facility], [facility], [facility], [facility], [place], [facility] ([facility]), and . Erika IRAHETAN RN CM
--- NOTE | 2024-01-30 17:18 | PCM.PN.SRG ---
Subjective Subjective Patient seen and examined during AM rounds. He is found sleeping on arrival to the room. However he awakens easily and states that he had a restful night. He denies any acute events overnight. He confirms that he is had a bowel movement overnight and has had no issues with the diet. Objective Data Objective Data Vital Signs: Vital Signs Temp Pulse Resp BP Pulse Ox O2 Del Method O2 Flow Rate 99.1 F 82 16 126/76 H 94 Room Air 2 01/30/24 14:30 01/30/24 14:30 01/30/24 14:30 01/30/24 14:30 01/30/24 08:30 01/30/24 14:30 01/19/24 13:22 Oxygen Flow Rate (L/min) 2 Oxygen Delivery Method Room Air Weight: 221 lb 5.506 oz Body Mass Index (BMI) 27.6 Intake & Output: Intake and Output for Last 24 Hours 01/28/24 01/29/24 01/30/24 23:59 23:59 23:59 Intake Total 1224 / 1224 2139 / 2639 1999 Output Total 500 / 500 513 / 1213 1300 / 1300 Balance 724 / 724 1626 / 1426 700 / 700 Lab / Micro Data 01/30/24 06:38 01/30/24 06:38 Labs: Laboratory Results - last 24 hr 01/30/24 06:38: WBC 11.2 H, RBC 4.32 L, Hgb 11.7 L, Hct 37.3 L, MCV 86.3, MCH 27.1, MCHC 31.4 L, RDW Std Deviation 41.9, RDW Coeff of Khadijah 13.3, Plt Count 659 H, MPV 9.6, Immature Gran % (Auto) 1.000 H, Neut % (Auto) 68.5, Lymph % (Auto) 13.7 L, Grand % (Auto) 11.4 H, Eos % (Auto) 4.2, Baso % (Auto) 1.2 H, Absolute Neuts (auto) 7.7, Absolute Lymphs (auto) 1.54, Nucleated RBC % 0, Sodium 138, Potassium 4.1, Chloride 107, Carbon Dioxide 25.0, Anion Gap 6, BUN 16, Creatinine 1.37 H, Estim Creat Clear Calc 83.10, Est GFR (MDRD) Af Amer 73, Est GFR (MDRD) Non-Af 60, BUN/Creatinine Ratio 11.7, Glucose 91, Calcium 9.4, Phosphorus 3.5, Magnesium 2.2 Micro: Microbiology 01/24/24 12:35 Wound - Abdominal Gram Stain - Final 01/24/24 12:35 Wound - Abdominal Wound Culture - Final Enterococcus faecalis 01/24/24 12:35 Wound - Abdominal Anaerobic Culture - Final Bacteroides thetaiotaomicron 01/19/24 00:01 Aspirate - Abdominal Gram Stain - Final 01/19/24 00:01 Aspirate - Abdominal Wound Culture - Final Enterococcus faecalis Streptococcus group G Escherichia coli Pseudomonas aeruginosa 01/19/24 00:01 Aspirate - Abdominal Anaerobic Culture - Final Parabacteroides distasonis Bacteroides ovatus Bacteroides fragilis 01/18/24 18:41 Blood Culture (Wb) - Anticubital Left Blood Culture - Final No growth in 5 days. 01/18/24 19:00 Blood Culture (Wb) - Anticubital Right Blood Culture - Final No growth in 5 days. 01/18/24 20:49 Urine, Clean Catch Urine Culture - Final Culture exhibits no growth. Radiography Diagnostic Testing: Radiology Impression Abdomen/Pelvis CT 01/30/24 10:57 IMPRESSION: Status post right hemicolectomy with postoperative changes. There is a 3.8 side by 3 cm walled off fluid collection in the mesenteric fat at the operative site. Previously, this was more of a phlegmon. No evidence of bowel obstruction. Sigmoid diverticulosis. Electronically Signed: Charlie Melo MD at 14:16 EDT , Physical Exam Const oriented x3 and no apparent distress Constitutional Narrative: Patient appears anxious and in mild distress with apprehension Resp normal respiratory effort GI GI Narrative: Nondistended, soft, nontender to palpation, midline incision is now opened inferiorly and there is a brown?colored patch of the fascia where the umbilicus has been displaced. There is partial tracking deeply but no free communication to the peritoneal cavity. Wound appears somewhat improved today with some persistent necrotic fascia but to a lesser degree than previously. Fascial suture material is visible. Serous drainage to the gauze Assessment & Plan Assessment/Plan (1) S/P exploratory laparotomy: PLAN: Patient is postoperative day 12 from exploratory laparotomy with drainage of deep space abscess. Once again, there is no skin drainage from patient's wound and less necrotic debris within the wound base. Patient was transition to Augmentin plus ciprofloxacin per IDs recommendations yesterday, and while he remains afebrile his white count did increase today. With this increase a CT of the abdomen pelvis was ordered with oral and IV contrast. Previous reactive thrombocytosis appears further improved today. Mr. Ragland does have evidence of acute kidney injury and malnutrition. Labs show a continued downtrend in his creatinine, but a fluid bolus was given prior to his IV contrast with his CT imaging as ordered above. Given his perioperative malnutrition we are continuing to encourage protein intake. Continue dressing changes 3 times daily with dry gauze. Continue to encourage ambulation. Trevor Hahn MD General Surgery Endocrine Surgery Pager: [facility] [address] [place] [address], [facility], [address] [place] [id number] Office: [phone] Charges/Coding Visit Charges Inpatient E&M: 60071 Subs Hosp L2
--- NOTE | 2024-01-30 17:24 | DS.PCM_ITS ---
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 Once again, there is no skin drainage from patient's wound and less necrotic debris within the wound base. Patient was transition to Augmentin plus ciprofloxacin per IDs recommendations yesterday, and while he r emains afebrile his white count did increase today. With this increase a CT of the abdomen pelvis was ordered with oral and IV contrast. Previous reactive thrombocytosis appears further improved today. Mr. Ragland does have evidence of acute kidney injury and malnutrition. Labs show a continued downtrend in his creatinine, but a fluid bolus was given prior to his IV contrast with his CT imaging as ordered above. Given his perioperative malnutrition we are continuing to encourage protein intake. Continue dressing changes 3 times daily with dry gauze. Continue to encourage ambulation. Trevor Hahn MD General Surgery Endocrine Surgery Pager: [facility] [address] [place] [address], [address] [place] [address] Office: [phone] Medications at Discharge Home Medications acetaminophen 500 mg tablet 500 mg PO Q6H PRN PRN Pain 1-10 Or Fever #0 tabs 01/16/24 amoxicillin 875 mg-potassium clavulanate 125 mg tablet 1 tab PO BID atb 9 days #18 tabs 01/16/24 celecoxib 200 mg capsule 200 mg PO DAILY see 7 days #7 caps 01/16/24 oxycodone 5 mg tablet 5 mg PO Q6H PRN PRN Pain Score 4-10 2 days #6 tabs 01/16/24 levofloxacin 750 mg tablet 750 mg PO DAILY atb #14 tabs 01/17/24 Hospital Course Operations - (Exploratory laparotomy with washout and drain placement 01/18/2024) Procedures PICC line placement (Midline placement 01/28/2024) Summary of Care Provided Hospital Course: Patient is a 43-year-old male who required emergent exploratory laparotomy with washout and drain placement 01/18/2024 after presentation to the ER with new fevers and drainage following a colectomy on 01/11/2024. Upon arrival to the ER he underwent CT imaging which showed evidence of a retroperitoneal abscess deep to the colon and just below the ileocolic anastomosis. Upon exploration, there was no evidence of a anastomotic leak, but the peritoneum was washed out and a drain was placed in the paracolic gutter. Abscess cultures were obtained from that operation and the patient was placed on broad-spectrum therapy with Zosyn and vancomycin per pharmacy's recommendations. Patient's wound had been left open at the time of surgery (closed at fascia only) given a preoperatively diagnosed polymicrobial wound infection. 3 days postoperatively, after multiple dressing changes of patient's abdominal with no drainage, his skin was loosely reapproximated with a delayed primary closure using 2-0 nylon suture. Unfortunately, postoperative day 6 patient was noted to have some new drainage of his wound and the inferior portion of the wound was opened and cultured. Ultimately this grew pansensitive Enterococcus faecalis. During this same time patient's diet was advanced according to his tolerance and we encourage protein intake given his [id number]-cxzy operations. He tolerated this advancement rather uneventfully. However, he did develop evidence of acute kidney injury and this seemed to correspond with elevated vancomycin troughs. Thus, infectious disease was consulted to see if patient truly required vancomycin in addition to Zosyn. They determined that Zosyn monotherapy would be sufficient and the vancomycin was promptly discontinued. Given patient's ROXANNA efforts were also made to try to improve patient's free water and limit any other nephrotoxic agents. On the morning of postoperative day 11, patient had tolerated a transitional diet for a number of days with regular bowel function and had 2 days of normal white blood cell counts. Thus, the drain that had been placed at the time of surgery was removed. Additionally with these clinical improvements discharge planning was set into motion for potential discharge the following day with home health. However, the morning of postoperative day 12 patient had an increase in his white blood cell count that was followed up with a CT of the abdomen and pelvis using oral and IV contrast. This imaging showed evidence of a 4 cm x 3 cm abscess in the vicinity of the patient's anastomosis. Reoperation was contemplated, however, given the difficulty of the previous operation and patient's longer recovery this decision was reassessed alongside of patient's CT imaging. It was felt that Mr. Ragland did, in fact, have a potential window that might be exploited by interventional radiology for placement of a percutaneous drain. Given the strong interest from both the patient's and the provider side to avoid reoperation tertiary assistance was sought and patient was excepted in transfer with the surgery service at [facility]. Physical Exam Const alert and oriented x3 Constitutional Narrative: Mild distress from recent news of abscess Resp normal respiratory effort GI GI Narrative: Nondistended, soft, scant serous drainage to wound gauze, nontender to palpation, clean dressing over patient's prior drain site in right lower quadrant Weight / BMI Weight Weight: 221 lb 5.506 oz Body Mass Index (BMI) 27.6 ABG / Lab / Microbiology Data 01/30/24 06:38 01/30/24 06:38 Laboratory: Laboratory Results - last 24 hr 01/30/24 06:38: WBC 11.2 H, RBC 4.32 L, Hgb 11.7 L, Hct 37.3 L, MCV 86.3, MCH 27.1, MCHC 31.4 L, RDW Std Deviation 41.9, RDW Coeff of Khadijah 13.3, Plt Count 659 H, MPV 9.6, Immature Gran % (Auto) 1.000 H, Neut % (Auto) 68.5, Lymph % (Auto) 13.7 L, Phillips % (Auto) 11.4 H, Eos % (Auto) 4.2, Baso % (Auto) 1.2 H, Absolute Neuts (auto) 7.7, Absolute Lymphs (auto) 1.54, Nucleated RBC % 0, Sodium 138, Potassium 4.1, Chloride 107, Carbon Dioxide 25.0, Anion Gap 6, BUN 16, Creatinine 1.37 H, Estim Creat Clear Calc 83.10, Est GFR (MDRD) Af Amer 73, Est GFR (MDRD) Non-Af 60, BUN/Creatinine Ratio 11.7, Glucose 91, Calcium 9.4, Phosphorus 3.5, Magnesium 2.2 Microbiology: Microbiology 01/24/24 12:35 Wound - Abdominal Gram Stain - Final 01/24/24 12:35 Wound - Abdominal Wound Culture - Final Enterococcus faecalis 01/24/24 12:35 Wound - Abdominal Anaerobic Culture - Final Bacteroides thetaiotaomicron 01/19/24 00:01 Aspirate - Abdominal Gram Stain - Final 01/19/24 00:01 Aspirate - Abdominal Wound Culture - Final Enterococcus faecalis Streptococcus group G Escherichia coli Pseudomonas aeruginosa 01/19/24 00:01 Aspirate - Abdominal Anaerobic Culture - Final Parabacteroides distasonis Bacteroides ovatus Bacteroides fragilis 01/18/24 18:41 Blood Culture (Wb) - Anticubital Left Blood Culture - Final No growth in 5 days. 01/18/24 19:00 Blood Culture (Wb) - Anticubital Right Blood Culture - Final No growth in 5 days. 01/18/24 20:49 Urine, Clean Catch Urine Culture - Final Culture exhibits no growth. Radiography Diagnostic Testing: Radiology Impression Abdomen/Pelvis CT 01/30/24 10:57 IMPRESSION: Status post right hemicolectomy with postoperative changes. There is a 3.8 side by 3 cm walled off fluid collection in the mesenteric fat at the operative site. Previously, this was more of a phlegmon. No evidence of bowel obstruction. Sigmoid diverticulosis. Electronically Signed: Charlie Melo MD at 14:16 EDT Reading Location ID and State: [address] [place] [address] , Service support , Meaningful Use Info Meaningful Use Diagnoses (Choose all that apply): None applicable Discharge Plan Admission Admit Date/Time: 01/18/24 20:47 Primary Reason for Your Visit: Abscess, intra-abdominal, postoperative Attending Provider: Trevor Hahn Primary Care Provider: Care Physician,No Primary Consulting Providers: Veronica Garner; Anish Aquino Instructions Additional Instructions / Restrictions: Continue Gentle dry to dry dressing changes three times daily You will have home health assisting with You will be sent home on Augmentin and Ciprofloxacin We would also like you to continue a blood thinner and will be transitioning you from Heparin to Lovenox once a day for at least 21 days We will discuss at your follow-up, if a hematology referral is needed to 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 Avoid tough meats, raw veggies or other high fiber items at this time Continue with frequent walks to build back up your stamina We have you scheduled for an appointment on Saturday01/30/24 at 0800 AM Discharge Orders/Prescriptions Prescriptions: No Action amoxicillin-pot clavulanate 875-125 mg Tablet 1 tab PO BID 9 Days Qty: 18 0RF celecoxib 200 mg Capsule 200 mg PO DAILY 7 Days Qty: 7 0RF acetaminophen 500 mg Tablet 500 mg PO Q6H PRN PRN (Reason: Pain 1-10 Or Fever) Qty: 0 0RF oxycodone 5 mg Tablet 5 mg PO Q6H PRN PRN (Reason: Pain Score 4-10) 2 Days Qty: 6 0RF levofloxacin 750 mg tablet 750 mg PO DAILY Qty: 14 0RF Referrals / Follow Up: Marcellus Oakes MD [Med Staff - Franchise Business Consultant] - Trevor Hahn MD [Med Staff - Active Staff] - Care Physician,No Primary [Primary Care Provider] - Disposition Discharge Orders: Discharge Patient (Routine); Ordered 01/30/24 Ordered By: Dr. Trevor Hahn Charges/Coding Visit Charges Inpatient E&M: 46499 Disch Hosp
[2024-01-30] MEDS: 0.9% Saline Lock 10 ML Syringe IV (20:01)
[2024-01-30] MEDS: Ondansetron 4 MG/2 ML Vial IV (20:01)
[2024-01-30 20:09] VITALS: BP 124/78; PULSE 80; RESP 16; TEMP 36.6; O2SAT 95
--- NOTE | 2024-01-30 21:08 | NURSING ---
[facility] called pt has a bed Rm 5110, call report to [phone]. primary rn aware, will notify [facility] pickup time 2330
[2024-01-30] MEDS: Piperacil/Tazobactam 3.375 GM in 0.9% Normal Saline (50mL MB+) 50 ML IV (21:27)
[2024-01-30 23:24] VITALS: BP 117/75; PULSE 82; RESP 16; TEMP 36.6; O2SAT 98
--- NOTE | 2024-01-30 23:26 | NURSING ---
marlen at [facility] called and transport delayed for 1 to 1.5hr, primary rn notified
[2024-01-30 23:28] VITALS: BP 117/75; PULSE 82; RESP 16; TEMP 36.6; O2SAT 98
--- NOTE | 2024-01-31 01:41 | NURSING ---
sarah from [facility] called and transport should be coming in 20-25min, primary rn notified
[2024-01-31] MEDS: LORazepam 2 MG/ML Syringe 0.5 MG IV (01:52)
[2024-01-31] MEDS: proCHLORPERazine 10 MG/2 ML Vial IV (01:53)
[2024-01-31] MEDS: Acetaminophen 325 MG Tablet 650 MG PO (01:54)
== END 2024-01-31 02:22 | disposition short-term general hospital (02) | DRG 856 ==
LOC: ED 20:45 → MS3 21:00
PROVIDERS: Physician Assistant; Surgery; Admitting Provider Surgery; Emergency Provider Emergency Medicine; Visit Provider Surgery
PROC: (CPT 49320; principal; 2024-01-18 23:30)
DX: K68.11 Postprocedural retroperitoneal abscess (principal); K55.069 Acute infarction of intestine, part and extent unspecified; T81.32XA Disruption of internal operation (surgical) wound, not elsewhere classified, initial encounter; E44.0 Moderate protein-calorie malnutrition; K56.7 Ileus, unspecified; N17.9 Acute kidney failure, unspecified; K91.89 Other postprocedural complications and disorders of digestive system; T81.42XA Infection following a procedure, deep incisional surgical site, initial encounter; E87.6 Hypokalemia; Z53.39 Other specified procedure converted to open procedure; Z68.27 Body mass index [BMI] 27.0-27.9, adult; B96.5 Pseudomonas (aeruginosa) (mallei) (pseudomallei) as the cause of diseases classified elsewhere; N50.89 Other specified disorders of the male genital organs; Y83.6 Removal of other organ (partial) (total) as the cause of abnormal reaction of the patient, or of later complication, without mention of misadventure at the time of the procedure; B95.2 Enterococcus as the cause of diseases classified elsewhere; T36.8X5A Adverse effect of other systemic antibiotics, initial encounter; Y92.239 Unspecified place in hospital as the place of occurrence of the external cause
CPT/HCPCS: 36415; 71045; 74018; 74177; 80048; 80053; 80076; 80202; 81001; 82962; 83605; 83690; 83735; 84100; 85025; 85610; 85730; 87040; 87070; 87075; 87077; 87086; 87184; 87186; 87205; 93005; 97802; 97803; 99285; J7030; J7040; J7050; Q9967; A4216; C1760; J1940; J2405; J7799

== ENCOUNTER 2024-02-24 12:37 | Outpatient (RCR) | payer BC, SELFPAY ==
[2024-02-10 13:00] LABS: Absolute Lymphocyte Count 1.32 X10^3/uL (0.83-4.51); Absolute Neutrophil Count 3.6 X10^3/uL (2.0-7.7); Basophil# 0.12 X10^3/uL; Basophil% 1.9 % (0-1); Eosinophil# 0.66 X10^3/uL; Eosinophils% 10.5 % (0-5); Hemoglobin 12.6 g/dL (13.0-16.5); Lymphocyte # 1.32 X10^3/ul (0.83-4.51); Mean Corp Hgb Conc 30.7 g/dL (32-36); Mean Corpuscular Hgb 27.6 pg (27.0-32.0); Mean Corpuscular Volume 89.7 fL (80-94); Mean Platelet Vol. 10.3 fl (6.2-12.0); Monocyte# 0.59 X10^3/uL; Monocyte% 9.4 % (0-10); NRBC Flagged by Analyzer 0 % (0-5); Neutrophil # 3.58 X10^3/uL (2.7-7.7); Neutrophil % 56.7 % (47-70); Platelet Count 487 K/mm3 (150-450); RBC Distribution Width CV 13.1 % (11.6-14.6); RBC Distribution Width SD 42.5 fl (35.1-43.9); Red Blood Count 4.57 M/mm3 (4.6-6.2); White Blood Count 6.3 K/mm3 (4.4-11.0)
[2024-02-10 13:22] LABS: AST(SGOT) 47 U/L (15-37); Alanine Aminotransfer ALT/SGPT 79 U/L (16-61); Albumin, Serum 3.6 g/dL (3.2-5.0); Alkaline Phosphatase 106 U/L (45-117); Anion Gap 7 (5-15); BUN 18 mg/dL (7-18); BUN/Creat Ratio 12.8 RATIO (10-20); Bilirubin, Direct 0.23 mg/dL (0.00-0.30); Calcium,Total 9.7 mg/dL (8.5-10.1); Chloride 106 mmol/L (98-107); Creatinine, Serum 1.41 mg/dL (0.70-1.30); EST Glomerular Filtration Rate 58 mL/min (>60); Est Glom Filt Rate - Afr Amer 70 mL/min (>60); Globulin 4.6 g/dL (2.2-4.2); Glucose 93 mg/dL (74-106); Potassium 3.6 mmol/L (3.5-5.1); Protein, Total 8.2 g/dL (6.4-8.2); Sodium Level 139 mmol/L (136-145)
[2024-02-17 13:42] LABS: Absolute Lymphocyte Count 1.02 X10^3/uL (0.83-4.51); Absolute Neutrophil Count 4.6 X10^3/uL (2.0-7.7); Basophil# 0.09 X10^3/uL; Basophil% 1.2 % (0-1); Eosinophil# 0.79 X10^3/uL; Eosinophils% 10.9 % (0-5); Hematocrit 41.7 % (40-54); Hemoglobin 12.8 g/dL (13.0-16.5); Lymphocyte # 1.02 X10^3/ul (0.83-4.51); Mean Corp Hgb Conc 30.7 g/dL (32-36); Mean Corpuscular Hgb 27.4 pg (27.0-32.0); Mean Corpuscular Volume 89.1 fL (80-94); Mean Platelet Vol. 10.3 fl (6.2-12.0); Monocyte# 0.71 X10^3/uL; Monocyte% 9.8 % (0-10); NRBC Flagged by Analyzer 0 % (0-5); Neutrophil # 4.62 X10^3/uL (2.7-7.7); Neutrophil % 63.5 % (47-70); Platelet Count 361 K/mm3 (150-450); RBC Distribution Width CV 13.2 % (11.6-14.6); Red Blood Count 4.68 M/mm3 (4.6-6.2); White Blood Count 7.3 K/mm3 (4.4-11.0)
[2024-02-17 13:49] LABS: AST(SGOT) 116 U/L (15-37); Alanine Aminotransfer ALT/SGPT 200 U/L (16-61); Albumin, Serum 3.7 g/dL (3.2-5.0); Alkaline Phosphatase 143 U/L (45-117); Anion Gap 3 (5-15); BUN 14 mg/dL (7-18); BUN/Creat Ratio 11.8 RATIO (10-20); Bilirubin, Direct 0.29 mg/dL (0.00-0.30); Calcium,Total 9.8 mg/dL (8.5-10.1); Chloride 107 mmol/L (98-107); Creatinine, Serum 1.19 mg/dL (0.70-1.30); EST Glomerular Filtration Rate 71 mL/min (>60); Est Glom Filt Rate - Afr Amer 86 mL/min (>60); Glucose 107 mg/dL (74-106); Potassium 4.2 mmol/L (3.5-5.1); Protein, Total 7.7 g/dL (6.4-8.2); Sodium Level 139 mmol/L (136-145)
[2024-02-24 14:50] LABS: Absolute Lymphocyte Count 1.25 X10^3/uL (0.83-4.51); Absolute Neutrophil Count 3.3 X10^3/uL (2.0-7.7); Basophil# 0.09 X10^3/uL; Basophil% 1.5 % (0-1); Eosinophil# 0.71 X10^3/uL; Eosinophils% 11.8 % (0-5); Hematocrit 40.6 % (40-54); Hemoglobin 12.6 g/dL (13.0-16.5); Lymphocyte # 1.25 X10^3/ul (0.83-4.51); Lymphocyte % 20.7 % (19-41); Mean Corpuscular Hgb 27.3 pg (27.0-32.0); Mean Corpuscular Volume 88.1 fL (80-94); Mean Platelet Vol. 10.4 fl (6.2-12.0); Monocyte# 0.64 X10^3/uL; Monocyte% 10.6 % (0-10); NRBC Flagged by Analyzer 0 % (0-5); Neutrophil # 3.33 X10^3/uL (2.7-7.7); Neutrophil % 55.1 % (47-70); Platelet Count 294 K/mm3 (150-450); RBC Distribution Width CV 13.2 % (11.6-14.6); RBC Distribution Width SD 42.7 fl (35.1-43.9); Red Blood Count 4.61 M/mm3 (4.6-6.2)
[2024-02-24 15:04] LABS: AST(SGOT) 101 U/L (15-37); Alanine Aminotransfer ALT/SGPT 226 U/L (16-61); Albumin, Serum 3.6 g/dL (3.2-5.0); Alkaline Phosphatase 146 U/L (45-117); Anion Gap 2 (5-15); BUN 12 mg/dL (7-18); BUN/Creat Ratio 10.3 RATIO (10-20); Bilirubin, Direct 0.31 mg/dL (0.00-0.30); Calcium,Total 9.6 mg/dL (8.5-10.1); Chloride 107 mmol/L (98-107); Creatinine, Serum 1.17 mg/dL (0.70-1.30); EST Glomerular Filtration Rate 72 mL/min (>60); Est Glom Filt Rate - Afr Amer 87 mL/min (>60); Globulin 3.7 g/dL (2.2-4.2); Glucose 110 mg/dL (74-106); Potassium 3.9 mmol/L (3.5-5.1); Protein, Total 7.3 g/dL (6.4-8.2); Sodium Level 140 mmol/L (136-145)
== END 2024-02-25 22:20 | disposition home or self-care (01) ==
LOC: HHLAB 12:37
PROVIDERS: Referring Provider Surgery; Visit Provider Surgery
DX: T81.43XA Infection following a procedure, organ and space surgical site, initial encounter (principal)
CPT/HCPCS: 80048; 80076; 85025

== ENCOUNTER 2024-02-25 13:41 | Outpatient (RCR) | payer BC, SELFPAY ==
[2024-02-25 13:52] VITALS: BP 127/82; PULSE 77; TEMP 36.2; BMI 24.3
--- NOTE | 2024-02-25 16:45 | PCM.WC.HP ---
History of Present Illness Date of Service: 02/25/24 Chief Complaint: Nonhealing surgical wound of the abdomen History of Wound: This is a 43-year-old male with a complicated recent medical history. On January 10, 2024, the patient presented with gastrointestinal bleeding and abdominal pain. A CT scan of the abdomen was performed, revealing intussusception of the ileocecal valve. On January 11, 2024, the patient underwent hand-assisted laparoscopic right hemicolectomy. 5 days postoperatively, the patient developed an incisional infection, and was treated with Augmentin 875 mg twice daily. He was discharged on January 16, 2024. 2 days later, he was readmitted with a diagnosis of postoperative intra-abdominal abscess, and was returned to surgery for exploratory laparotomy with washout and drain placement. He continued to experience postoperative complications, and was subsequently transferred to [facility] on January 30, 2024. While at [facility], the patient underwent placement of a drain in the right lower quadrant by means of CT imaging. He was subsequently discharged home, and the drain has been removed. He remains on intravenous Zosyn by means of a PICC catheter in his left upper extremity. The patient has a persisting open surgical wound in the midst of his midline surgical incision. He has been treated with a wound VAC, with home health nursing personnel who changed his wound VAC 3 times weekly. The patient is otherwise generally healthy, and denies significant medical history including hypertension, myocardial infarction, congestive heart failure, cerebrovascular accident, diabetes mellitus, renal disease, thyroid disease, hyperlipidemia, etc. [facility] Medical History (Updated 02/25/24 @ 17:[address] Amadeo Call MD) Anterior abdomen avulsion Collar bone fracture History of abdominal abscess Nonhealing surgical wound Home Medications acetaminophen 500 mg tablet 500 mg PO Q6H PRN PRN Pain 1-10 Or Fever #0 tabs 01/16/24 [Rx Last Taken Unknown] amoxicillin 875 mg-potassium clavulanate 125 mg tablet 1 tab PO BID atb 9 days #18 tabs 01/16/24 [Rx Last Taken Unknown] celecoxib 200 mg capsule 200 mg PO DAILY see 7 days #7 caps 01/16/24 [Rx Last Taken Unknown] apixaban 5 mg (74 tabs) tablets in a dose pack (Eliquis DVT-PE Treat 30D Start) 5 mg PO Q12H blood clot 02/25/24 [History Last Taken Unknown] tramadol 50 mg tablet 50 mg PO Q8H PRN pain 02/25/24 [History Last Taken Unknown] Allergy/AdvReac Type Severity Reaction Status Date / Time No Known Allergies Allergy Verified 01/18/24 17:41 Surgical History H/O hernia repair History of open reduction and internal fixation (ORIF) procedure Status post right hemicolectomy Social History Smoking Status: Never smoker Vital Signs Vital Signs Vital Signs: 02/25/24 13:52 Temperature 97.2 F L Temperature Source Temporal Pulse Rate 77 Blood Pressure 127/82 H Blood Pressure Mean 97 Blood Pressure Source Monitor Blood Pressure Position Sitting Blood Pressure Location Right Arm Weight Weight: 195 lb Body Mass Index (BMI) 24.3 Physical Exam Const alert, oriented x3, no apparent distress, average body habitus and well nourished Constitutional Narrative: The patient is of relatively normal body habitus, with a BMI of 24.3. General Appearance: cooperative, comfortable, well kempt and well developed Orientation / Consciousness: awake, oriented to person, oriented to place and oriented to time Exam Limitations: no limitations HEENT normocephalic, head/scalp atraumatic and hearing grossly normal bilaterally Head and Scalp: normal to inspection, normocephalic and atraumatic External Ear: external ears normal Eyes PERRL and EOMs intact bilaterally General Eye: normal appearance of both eyes Neck full ROM Chest inspection of chest normal Resp normal respiratory effort, normal air movement, no retractions, no use of accessory muscles and clear to auscultation bilaterally Effort and Inspection: able to speak in complete sentences and symmetric chest movement Cardio regular rate, regular rhythm, S1 normal heart sound and S2 normal heart sound Extremity no calf tenderness General Extremity: Negative for clubbing or cyanosis Skin Wound Narrative: A vertical midline incision is noted, with a focal dehiscence near the midline. Dimensions are documented elsewhere. There is no sign of infection or cellulitis. A small amount of bioburden is noted. No drainage or odor are noted. Neuro oriented x3, CN's II-XII intact bilaterally, moves all extremities and no focal motor deficits Sensorium / Orientation: awake, alert, oriented to person, oriented to place and oriented to time Psych Appearance: grossly normal and appropriate Attitude: calm Activity / Motor Behavior: appropriate eye contact Speech: normal speech Mood & Affect: euthymic mood Thought Process: normal thought process Thought Content: normal thought content Attention / Concentration: attention grossly intact Debridement Note Debridement Note Wound debrided: Surgical abdominal wound Type of Debridement: Excisional debridement Anesthesia Used: 5% Lidocaine Gel Depth: Down to and including healthy tissue and in the subcutaneous layer Percentage of wound debrided: 100 Instrument Used: 3mm curette Severity: Fat Layer Exposed Amount of bleeding with debridement: Mild Bleeding Controlled with: Compression and gauze Patient tolerated procedure: Patient tolerated procedure well Post-Debridement Measurements and Additional Note: Post-Debridement Measurements/Treatment WC - Nurse 1 - General Ulcer Assessment Start: 02/25/24 13:51 Freq: Status: Active Protocol: ALVARO Activity Type Activity Date Activity User E-sign Co-sign Detail Recorded Client Recorded Date Recorded By Document 02/25/24 13:52 DS Desktop 02/25/24 13:56 DS Edit Result 02/25/24 13:52 DS (1) Desktop 02/25/24 13:58 DS Edit Result 02/25/24 13:52 DS (2) [id number] 02/25/24 14:38 DS (1) Height => 6 ft 3 in Weight => 195 lb Weight in Pounds => 195.0 lbs Weight Measurement Method => Estimated by => Patient Body Mass Index (BMI) => 24.3 BMI Classification => Normal BSA - Chuck => 2.17 (2) Have you changed medications since your No => last visit? Any new allergies or adverse reactions No => Had a fall/change in ADL's that may No => increase risk of falls Signs or symptoms of abuse and/or No => neglect since last visit Have you been in the hospital since your No => last visit? Has dressing in place as prescribed Yes => Experienced any changes in pain level or No => management Preferred language => [place] Able to Read => Yes Able to Write => Yes Caregiver Communication Skills => No Impairment Impairment Right Hearing Abillity => Normal Left Hearing Abillity => Normal Visual Assistive Devices => Glasses Preferences => Verbal,Written, => Demonstration Readiness To Learn => Excellent Willingness to Engage in Self Management => High Activies Readiness to Engage in Self Management => High Activities Anxiety Level => Anxious Cooperation => Cooperative Perception => Coherent Interest in Health Problem => Asks Questions Education Importance => Acknowledges Need Does Patient Smoke tobacco or other => No substances Is Patient Diabetic => No Recent Decline in Ability to Perform => Denies Any => Declines Cultural/Confucianist Needs that may affect => No Treatment Plan *Welcome to the Wound Center - Person Taught => Patient - Teaching Method => Discussion - Response to teaching => Verbalize => understanding 02/25/24 13:52 - Today's Visit Information Type of service Initial Visit Arrival Mode Ambulatory Patient Identification Verified (Name & Yes ) Height and Weight Height 6 ft 3 in Weight 195 lb Weight in Pounds 195.0 lbs Weight Measurement Method Estimated by Patient Body Mass Index (BMI) 24.3 BMI Classification Normal BSA - Chuck 2.17 Vital Signs Temperature (97.8 F-99.1 F) 97.2 F L Temperature Source Temporal Pulse Rate (60-100) 77 Pulse Location Monitor Blood Pressure (90/60-120/80) 127/82 H Blood Pressure Mean 97 Source Monitor Position Sitting Blood Pressure Location Right Arm History Since Last Visit- (Skip if this is Patient's initial visit) Has compression in place as prescribed N/A Has offloadiing in place as prescribed N/A Left Footwear Regular Shoe Right Footwear Regular Shoe Pain Scale: 0-10 Numeric Is Patient Pain Free? Yes Communication Assessment Preferred language [place] Able to Read Yes Able to Write Yes Caregiver Communication Skills No Impairment Impairment Right Hearing Abillity Normal Left Hearing Abillity Normal Visual Assistive Devices Glasses Teaching Assessment Preferences Verbal,Written, Demonstration Readiness To Learn Excellent Willingness to Engage in Self Management High Activies Readiness to Engage in Self Management High Activities Anxiety Level Anxious Cooperation Cooperative Perception Coherent Interest in Health Problem Asks Questions Education Importance Acknowledges Need Does Patient Smoke tobacco or other No substances Is Patient Diabetic No Functional Assessment Recent Decline in Ability to Perform Denies Any Declines Culture/Confucianist/Hogshead Cooper Cultural/Confucianist Needs that may affect No Treatment Plan Teaching: Wound Center *Welcome to the Wound Center -Person Taught Patient -Teaching Method Discussion -Response to teaching Verbalize understanding - Nurse 1 - General Ulcer Measurement Start: 02/25/24 13:51 Freq: Status: Active Protocol: Activity Type Activity Date Activity User E-sign Co-sign Detail Recorded Client Recorded Date Recorded By Document 02/25/24 14:04 DS Desktop 02/25/24 14:10 DS 02/25/24 14:04 Wound Center Nurse 1 #1 ant abd wall -Combined with other wound No -Current Size (cm) - Length 0.8 -Current Size (cm) - Width 0.6 -Current Size (cm) - Depth 1.2 -Total Square Cm 0.48 -Date of Last Picture (Recall this 02/25/24 field) -Photo Taken Yes -Tunneling Yes -Tunneling Position (O'clock) 1 -Tunneling Distance (cm) 1.4 -Undermining/Tunneling No -Circular Undermining No -Exudate Amt Medium -Exudate Type Serosanguineous -Granulation Amt Medium (34-66%) -Granulation Quality Red -Slough/Fibrin Yes -Necrosis Amt Medium (34-66%) -Necrotic Tissue Type Adherent Slough -Texture (Manisha-wound Skin Appearance) Assessed, Scarring -Moisture (Manisha-wound Skin Appearance) Assessed -Color (Manisha-wound Skin Appearance) Assessed, Erythema -Temperature (Manisha-wound Skin No Abnormality Appearance) (Pt Warm) -Tenderness on Palpation (Manisha-wound No Skin Appearance) -Ulcer Cleansing Soap and Water -Foul Odor after Cleansing No -Anesthetic Used 4% Lidocaine Solution WC - Nurse 2 - General Ulcer CM Notes Start: 02/25/24 13:51 Freq: Status: Active Protocol: Activity Type Activity Date Activity User E-sign Co-sign Detail Recorded Client Recorded Date Recorded By Document 02/25/24 14:29 Laptop 02/25/24 14:41 02/25/24 14:29 Wound Center Nurse 2 -Time 14:29 -Correct Patient Yes -Correct Side, Site, Position Yes -Correct Procedure Yes -Procedure Performed Yes -Type of Procedure Debridement -Clinical Debridement Subcutaneous -Tissue Removed Subcutaneous -Post Debridement (cm) - Length 1.0 -Post Debridement (cm) - Width 0.8 -Post Debridement (cm) - Depth 2.4 -Total Square (Post) (cm) 0.80 -Area of Debridement (cm) - Length 1.0 -Area of Debridement (cm) - Width 0.8 -Total Square (Area) (cm) 0.80 -Tunneling No -Undermining/Tunneling No -Circular Undermining No -Wound/Ulcer Outcome Not Healed -Ulcer Cleansing Rinsed/ Irrigated with Saline -Foul Odor after Cleansing No -Bioengineered Tissue No -Bleeding Controlled with Pressure -Treatment Response Procedure Tolerated Well -Offloading No -Debridement - Subq, 1st 20sq cm Yes Pain Scale: 0-10 Numeric Is Patient Pain Free? Yes WC - Nurse 3 - General Ulcer D/C NN Start: 02/25/24 13:51 Freq: Status: Active Protocol: Activity Type Activity Date Activity User E-sign Co-sign Detail Recorded Client Recorded Date Recorded By Document 02/25/24 15:06 KW Desktop 02/25/24 15:11 KW 02/25/24 15:06 Wound Care Center Nurse 3 #1 ant abd wall -Ulcer Cleansing Soap and Water -Foul Odor after Cleansing No -Negative Pressure Wound Therapy Continue -Setting (mmHg) 150 -Negative Pressure is Continuous -Regranex (If Applicable) Continue -NPWT Application Charge NPWT & Debridement (nc ) Pain Scale: 0-10 Numeric Is Patient Pain Free? Yes WC - Visit Discharge Discharge Condition Stable Ambulatory Status Ambulatory Transportation Private Auto Medication Reconcilliation completed & No provided to patient/care provider Clinical Summary of Care Provided Yes Assessment/Plan Assessment/Plan (1) Nonhealing surgical wound: CODE(S): T81.89XA - Other complications of procedures, not elsewhere classified, initial encounter QUALIFIERS: Encounter type: initial encounter Qualified Code(s): T81.89XA - Other complications of procedures, not elsewhere classified, initial encounter (2) Anterior abdomen avulsion: CODE(S): S31.109A - Unspecified open wound of abdominal wall, unspecified quadrant without penetration into peritoneal cavity, initial encounter QUALIFIERS: Encounter type: initial encounter Qualified Code(s): S31.109A - Unspecified open wound of abdominal wall, unspecified quadrant without penetration into peritoneal cavity, initial encounter (3) Status post right hemicolectomy: CODE(S): Z90.49 - Acquired absence of other specified parts of digestive tract (4) S/P exploratory laparotomy: CODE(S): Z98.890 - Other specified postprocedural states (5) Infection following a procedure, deep incisional surgical site, initial encounter: CODE(S): T81.42XA - Infection following a procedure, deep incisional surgical site, initial encounter (6) BMI 26.0-26.9,adult: CODE(S): Z68.26 - Body mass index [BMI] 26.0-26.9, adult (7) History of abdominal abscess: CODE(S): Z87.898 - Personal history of other specified conditions (8) History of open reduction and internal fixation (ORIF) procedure: CODE(S): Z98.890 - Other specified postprocedural states PLAN: Plan This is a 43-year-old generally healthy male who underwent urgent surgical intervention on January 11, 2024. He was diagnosed with an intussusception of the ileocecal valve, and underwent a hand-assisted laparoscopic right hemicolectomy. Thereafter, the patient developed complications. He developed an infection of his surgical incision, following his discharge, he required readmission with an intra-abdominal abscess, which required exploratory laparotomy with washout and drain placement. He continued to suffer from postoperative complications, he was subsequently transferred to [facility], where he underwent percutaneous drain placement using CT imaging. He presented at this time in the course of his recovery, with an open wound within his surgical incision. The wound is generally healthy in appearance, though is totaled into the subcutaneous tissue layer. Recent management has been by means of negative pressure wound therapy. This is to be appropriate, and negative pressure wound therapy is to be continued. Until now, management of his wound VAC has been by home health nursing, who have made home visits 3 times weekly. We are to continue wound VAC changes 2-3 times weekly, one of which will be at his weekly [facility] visit. Patient is to return in 1 week for reassessment. Total time: 48 minutes
--- NOTE | 2024-03-03 16:14 | HP.PCM_ITS ---
History of Present Illness Date of Service: 03/03/24 Chief Complaint: Nonhealing surgical wound of the abdomen History of Wound: This is a 43-year-old male with a complicated recent medical history. On January 10, 2024, the patient presented with gastrointestinal bleeding and abdominal pain. A CT scan of the abdomen was performed, revealing intussusception of the ileocecal valve. On January 11, 2024, the patient underwent hand-assisted laparoscopic right hemicolectomy by Dr. Hahn. 5 days postoperatively, the patient developed an incisional infection, and was treated with Augmentin 875 mg twice daily. He was discharged on January 16, 2024. 2 days later, he was readmitted with a diagnosis of postoperative intra-abdominal abscess, and was returned to surgery for exploratory laparotomy with washout and drain placement. He continued to experience postoperative complications, and was subsequently transferred to [facility] on January 30, 2024. While at [facility], the patient underwent placement of a drain in the right lower quadrant by means of CT imaging. He was subsequently discharged home, and the drain was removed. He remained on intravenous Zosyn by means of a PICC catheter in his left upper extremity. The patient has a persisting open surgical wound in the midst of his midline surgical incision. He has been treated with a wound VAC, with home health nursing personnel who changed his wound VAC 3 times weekly. The patient is otherwise generally healthy, and denies significant medical history including hypertension, myocardial infarction, congestive heart failure, cerebrovascular accident, diabetes mellitus, renal disease, thyroid disease, hyperlipidemia, etc. [facility] [place] Medical History Anterior abdomen avulsion Collar bone fracture History of abdominal abscess Nonhealing surgical wound Home Medications acetaminophen 500 mg tablet 500 mg PO Q6H PRN PRN Pain 1-10 Or Fever #0 tabs 01/16/24 [Rx Last Taken Unknown] celecoxib 200 mg capsule 200 mg PO DAILY see 7 days #7 caps 01/16/24 [Rx Last Taken Unknown] apixaban 5 mg (74 tabs) tablets in a dose pack (Eliquis DVT-PE Treat 30D Start) 5 mg PO Q12H blood clot 02/25/24 [History Last Taken Unknown] tramadol 50 mg tablet 50 mg PO Q8H PRN pain 02/25/24 [History Last Taken Unknown] amoxicillin 500 mg capsule 1,000 mg PO TID 03/03/24 [History Last Taken Unknown] Allergy/AdvReac Type Severity Reaction Status Date / Time No Known Allergies Allergy Verified 01/18/24 17:41 Surgical History H/O hernia repair History of open reduction and internal fixation (ORIF) procedure Status post right hemicolectomy Social History Smoking Status: Never smoker Vital Signs Vital Signs Vital Signs: Weight Weight: 195 lb Body Mass Index (BMI) 24.3 Physical Exam Const alert, oriented x3, no apparent distress, average body habitus and well nourished Constitutional Narrative: The patient is of relatively normal body habitus, with a BMI of 24.3. General Appearance: cooperative, comfortable, well kempt and well developed Orientation / Consciousness: awake, oriented to person, oriented to place and oriented to time Exam Limitations: no limitations HEENT normocephalic, head/scalp atraumatic and hearing grossly normal bilaterally Head and Scalp: normal to inspection, normocephalic and atraumatic External Ear: external ears normal Eyes PERRL and EOMs intact bilaterally General Eye: normal appearance of both eyes Neck full ROM Chest inspection of chest normal Resp normal respiratory effort, normal air movement, no retractions, no use of accessory muscles and clear to auscultation bilaterally Effort and Inspection: able to speak in complete sentences and symmetric chest movement Cardio regular rate, regular rhythm, S1 normal heart sound and S2 normal heart sound Extremity no calf tenderness General Extremity: Negative for clubbing or cyanosis Skin Wound Narrative: A vertical midline incision is noted, with a focal dehiscence near the middle of the incision. Dimensions are documented elsewhere. There is no sign of infection or cellulitis. A small amount of bioburden is noted. No drainage or odor are noted. The dehiscent surgical wound is tunneled, with a depth as documented elsewhere. Neuro oriented x3, CN's II-XII intact bilaterally, moves all extremities and no focal motor deficits Sensorium / Orientation: awake, alert, oriented to person, oriented to place and oriented to time Psych Appearance: grossly normal and appropriate Attitude: calm Activity / Motor Behavior: appropriate eye contact Speech: normal speech Mood & Affect: euthymic mood Thought Process: normal thought process Thought Content: normal thought content Attention / Concentration: attention grossly intact Debridement Note Debridement Note Wound debrided: Surgical abdominal wound Type of Debridement: Excisional debridement Anesthesia Used: 5% Lidocaine Gel Depth: Down to and including healthy tissue and in the subcutaneous layer Percentage of wound debrided: 100 Instrument Used: 3mm curette Severity: Fat Layer Exposed Amount of bleeding with debridement: Mild Bleeding Controlled with: Compression and gauze Patient tolerated procedure: Patient tolerated procedure well Post-Debridement Measurements and Additional Note: Post-Debridement Measurements/Treatment - Nurse 1 - General Ulcer Assessment Start: 02/25/24 13:51 Freq: Status: Active Protocol: [email or web address] Activity Type Activity Date Activity User E-sign Co-sign Detail Recorded Client Recorded Date Recorded By Document 02/25/24 13:52 DS Desktop 02/25/24 13:56 DS Edit Result 02/25/24 13:52 DS (1) Desktop 02/25/24 13:58 DS Edit Result 02/25/24 13:52 DS (2) [id number] 02/25/24 14:38 DS (1) Height => 6 ft 3 in Weight => 195 lb Weight in Pounds => 195.0 lbs Weight Measurement Method => Estimated by => Patient Body Mass Index (BMI) => 24.3 BMI Classification => Normal BSA - Chuck => 2.17 (2) Have you changed medications since your No => last visit? Any new allergies or adverse reactions No => Had a fall/change in ADL's that may No => increase risk of falls Signs or symptoms of abuse and/or No => neglect since last visit Have you been in the hospital since your No => last visit? Has dressing in place as prescribed Yes => Experienced any changes in pain level or No => management Preferred language => Gibralt[place] Able to Read => Yes Able to Write => Yes Caregiver Communication Skills => No Impairment Impairment Right Hearing Abillity => Normal Left Hearing Abillity => Normal Visual Assistive Devices => Glasses Preferences => Verbal,Written, => Demonstration Readiness To Learn => Excellent Willingness to Engage in Self Management => High Activies Readiness to Engage in Self Management => High Activities Anxiety Level => Anxious Cooperation => Cooperative Perception => Coherent Interest in Health Problem => Asks Questions Education Importance => Acknowledges Need Does Patient Smoke tobacco or other => No substances Is Patient Diabetic => No Recent Decline in Ability to Perform => Denies Any => Declines Cultural/Muslim Needs that may affect => No Treatment Plan *Welcome to the Wound Center - Person Taught => Patient - Teaching Method => Discussion - Response to teaching => Verbalize => understanding 02/25/24 13:52 - Today's Visit Information Type of service Initial Visit Arrival Mode Ambulatory Patient Identification Verified (Name & Yes ) Height and Weight Height 6 ft 3 in Weight 195 lb Weight in Pounds 195.0 lbs Weight Measurement Method Estimated by Patient Body Mass Index (BMI) 24.3 BMI Classification Normal BSA - Chuck 2.17 Vital Signs Temperature (97.8 F-99.1 F) 97.2 F L Temperature Source Temporal Pulse Rate (60-100) 77 Pulse Location Monitor Blood Pressure (90/60-120/80) 127/82 H Blood Pressure Mean 97 Source Monitor Position Sitting Blood Pressure Location Right Arm History Since Last Visit- (Skip if this is Patient's initial visit) Has compression in place as prescribed N/A Has offloadiing in place as prescribed N/A Left Footwear Regular Shoe Right Footwear Regular Shoe Pain Scale: 0-10 Numeric Is Patient Pain Free? Yes Communication Assessment Preferred language Gibraltarian Able to Read Yes Able to Write Yes Caregiver Communication Skills No Impairment Impairment Right Hearing Abillity Normal Left Hearing Abillity Normal Visual Assistive Devices Glasses Teaching Assessment Preferences Verbal,Written, Demonstration Readiness To Learn Excellent Willingness to Engage in Self Management High Activies Readiness to Engage in Self Management High Activities Anxiety Level Anxious Cooperation Cooperative Perception Coherent Interest in Health Problem Asks Questions Education Importance Acknowledges Need Does Patient Smoke tobacco or other No substances Is Patient Diabetic No Functional Assessment Recent Decline in Ability to Perform Denies Any Declines 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 Cultural/Muslim Needs that may affect No Treatment Plan Teaching: Wound Center *Welcome to the Wound Center -Person Taught Patient -Teaching Method Discussion -Response to teaching Verbalize understanding - Nurse 1 - General Ulcer Measurement Start: 02/25/24 13:51 Freq: Status: Active Protocol: Activity Type Activity Date Activity User E-sign Co-sign Detail Recorded Client Recorded Date Recorded By Document 02/25/24 14:04 DS Desktop 02/25/24 14:10 DS 02/25/24 14:04 Wound Center Nurse 1 #1 ant abd wall -Combined with other wound No -Current Size (cm) - Length 0.8 -Current Size (cm) - Width 0.6 -Current Size (cm) - Depth 1.2 -Total Square Cm 0.48 -Date of Last Picture (Recall this 02/25/24 field) -Photo Taken Yes -Tunneling Yes -Tunneling Position (O'clock) 1 -Tunneling Distance (cm) 1.4 -Undermining/Tunneling No -Circular Undermining No -Exudate Amt Medium -Exudate Type Serosanguineous -Granulation Amt Medium (34-66%) -Granulation Quality Red -Slough/Fibrin Yes -Necrosis Amt Medium (34-66%) -Necrotic Tissue Type Adherent Slough -Texture (Manisha-wound Skin Appearance) Assessed, Scarring -Moisture (Manisha-wound Skin Appearance) Assessed -Color (Manisha-wound Skin Appearance) Assessed, Erythema -Temperature (Manisha-wound Skin No Abnormality Appearance) (Pt Warm) -Tenderness on Palpation (Manisha-wound No Skin Appearance) -Ulcer Cleansing Soap and Water -Foul Odor after Cleansing No -Anesthetic Used 4% Lidocaine Solution WC - Nurse 2 - General Ulcer CM Notes Start: 02/25/24 13:51 Freq: Status: Active Protocol: Activity Type Activity Date Activity User E-sign Co-sign Detail Recorded Client Recorded Date Recorded By Document 02/25/24 14:29 Laptop 02/25/24 14:41 02/25/24 14:29 Wound Center Nurse 2 -Time 14:29 -Correct Patient Yes -Correct Side, Site, Position Yes -Correct Procedure Yes -Procedure Performed Yes -Type of Procedure Debridement -Clinical Debridement Subcutaneous -Tissue Removed Subcutaneous -Post Debridement (cm) - Length 1.0 -Post Debridement (cm) - Width 0.8 -Post Debridement (cm) - Depth 2.4 -Total Square (Post) (cm) 0.80 -Area of Debridement (cm) - Length 1.0 -Area of Debridement (cm) - Width 0.8 -Total Square (Area) (cm) 0.80 -Tunneling No -Undermining/Tunneling No -Circular Undermining No -Wound/Ulcer Outcome Not Healed -Ulcer Cleansing Rinsed/ Irrigated with Saline -Foul Odor after Cleansing No -Bioengineered Tissue No -Bleeding Controlled with Pressure -Treatment Response Procedure Tolerated Well -Offloading No -Debridement - Subq, 1st 20sq cm Yes Pain Scale: 0-10 Numeric Is Patient Pain Free? Yes - Nurse 3 - General Ulcer D/C NN Start: 02/25/24 13:51 Freq: Status: Active Protocol: Activity Type Activity Date Activity User E-sign Co-sign Detail Recorded Client Recorded Date Recorded By Document 02/25/24 15:06 KW Desktop 02/25/24 15:11 KW 02/25/24 15:06 Wound Care Center Nurse 3 #1 ant abd wall -Ulcer Cleansing Soap and Water -Foul Odor after Cleansing No -Negative Pressure Wound Therapy Continue -Setting (mmHg) 150 -Negative Pressure is Continuous -Regranex (If Applicable) Continue -NPWT Application Charge NPWT & Debridement (nc ) Pain Scale: 0-10 Numeric Is Patient Pain Free? Yes WC - Visit Discharge Discharge Condition Stable Ambulatory Status Ambulatory Transportation Private Auto Medication Reconcilliation completed & No provided to patient/care provider Clinical Summary of Care Provided Yes Assessment/Plan Assessment/Plan (1) Nonhealing surgical wound: CODE(S): T81.89XA - Other complications of procedures, not elsewhere classified, initial encounter QUALIFIERS: Encounter type: subsequent encounter Qualified Code(s): T81.89XD - Other complications of procedures, not elsewhere classified, subsequent encounter (2) Anterior abdomen avulsion: CODE(S): S31.109A - Unspecified open wound of abdominal wall, unspecified quadrant without penetration into peritoneal cavity, initial encounter QUALIFIERS: Encounter type: subsequent encounter Qualified Code(s): S31.109D - Unspecified open wound of abdominal wall, unspecified quadrant without penetration into peritoneal cavity, subsequent encounter (3) Status post right hemicolectomy: CODE(S): Z90.49 - Acquired absence of other specified parts of digestive tract (4) S/P exploratory laparotomy: CODE(S): Z98.890 - Other specified postprocedural states (5) Infection following a procedure, deep incisional surgical site, initial encounter: CODE(S): T81.42XA - Infection following a procedure, deep incisional surgical site, initial encounter (6) BMI 26.0-26.9,adult: CODE(S): Z68.26 - Body mass index [BMI] 26.0-26.9, adult (7) History of abdominal abscess: CODE(S): Z87.898 - Personal history of other specified conditions (8) History of open reduction and internal fixation (ORIF) procedure: CODE(S): Z98.890 - Other specified postprocedural states PLAN: Plan This is a 43-year-old generally healthy male who underwent urgent surgical intervention on January 11, 2024. He was diagnosed with an intussusception of the ileocecal valve, and underwent a hand-assisted laparoscopic right hemicolectomy. Thereafter, the patient developed complications. He developed an infection of his surgical incision. Following his discharge, he required readmission with an intra-abdominal abscess, which required exploratory laparotomy with washout and drain placement. He continued to suffer from postoperative complications. He was subsequently transferred to [facility], where he underwent percutaneous drain placement using CT imaging. He presented at this time in the course of his recovery, with an open, tunneled wound within his surgical incision. The wound is generally healthy in appearance, though is tunneled into the subcutaneous tissue layer. Recent management has been by means of negative pressure wound therapy. This appeared to be appropriate, and negative pressure wound therapy is to be continued. Until now, management of his wound VAC has been by home health nursing, who have made home visits 3 times weekly. We are to continue wound VAC changes 2 times weekly, one of which will be at his weekly [facility] visit. The patient has been encouraged to optimize his nutritional intake. The patient is to return in 1 week for reassessment. Total time: 26 minutes
== END 2024-02-25 23:59 | disposition home or self-care (01) ==
LOC: WC 13:41
PROVIDERS: Referring Provider Surgery Trauma Surgery; Visit Provider Surgery
DX: T81.42XA Infection following a procedure, deep incisional surgical site, initial encounter (principal); S31.109D Unspecified open wound of abdominal wall, unspecified quadrant without penetration into peritoneal cavity, subsequent encounter; Z79.01 Long term (current) use of anticoagulants; Z90.49 Acquired absence of other specified parts of digestive tract
CPT/HCPCS: 11042; 99214; G0463

== ENCOUNTER 2024-03-10 14:30 | Outpatient (RCR) | payer BC, SELFPAY ==
[2024-02-26 00:58] VITALS: BP 127/82; PULSE 77; TEMP 36.2; BMI 24.3
[2024-03-03 15:11] VITALS: BP 123/81; PULSE 78; RESP 18; TEMP 36.1; BMI 24.3
[2024-03-10 14:52] VITALS: BP 133/73; PULSE 73; RESP 18; TEMP 36.6; BMI 24.3
--- NOTE | 2024-03-10 16:31 | PCM.WC.HP ---
History of Present Illness Date of Service: 03/10/24 Chief Complaint: Nonhealing surgical wound of the abdomen History of Wound: This is a 43-year-old male with a complicated recent medical history. On January 10, 2024, the patient presented with gastrointestinal bleeding and abdominal pain. A CT scan of the abdomen was performed, revealing intussusception of the ileocecal valve. On January 11, 2024, the patient underwent hand-assisted laparoscopic right hemicolectomy. 5 days postoperatively, the patient developed an incisional infection, and was treated with Augmentin 875 mg twice daily. He was discharged on January 16, 2024. 2 days later, he was readmitted with a diagnosis of postoperative intra-abdominal abscess, and was returned to surgery for exploratory laparotomy with washout and drain placement. He continued to experience postoperative complications, and was subsequently transferred to [facility] on January 30, 2024. While at [facility], the patient underwent placement of a drain in the right lower quadrant by means of CT imaging. He was subsequently discharged home, and the drain has been removed. The patient has a persisting open surgical wound in the midst of his midline surgical incision. He has been treated with a wound VAC, with home health nursing personnel who change his Wound VAC 3 times weekly. The patient is otherwise generally healthy, and denies significant medical history including hypertension, myocardial infarction, congestive heart failure, cerebrovascular accident, diabetes mellitus, renal disease, thyroid disease, hyperlipidemia, etc. [facility] Medical History Anterior abdomen avulsion History of abdominal abscess Nonhealing surgical wound Collar bone fracture Home Medications ?Medication ?Instructions ?Recorded ?Last Taken ?Type acetaminophen 500 mg tablet 500 mg PO Q6H PRN PRN Pain 1-10 Or 01/16/24 Unknown Rx Fever #0 tabs celecoxib 200 mg capsule 200 mg PO DAILY see 7 days #7 01/16/24 Unknown Rx caps tramadol 50 mg tablet 50 mg PO Q8H PRN pain 02/25/24 Unknown History apixaban 5 mg (74 tabs) tablets in 5 mg PO BID blood clot 1 month #60 03/04/24 Unknown Rx a dose pack (Eliquis DVT-PE Treat tabs 30D Start) doxycycline monohydrate 100 mg 100 mg PO BID 03/10/24 Unknown History tablet Allergy/AdvReac Type Severity Reaction Status Date / Time No Known Allergies Allergy Verified 03/10/24 09:30 Surgical History History of open reduction and internal fixation (ORIF) procedure Status post right hemicolectomy H/O hernia repair Social History Smoking Status: Never smoker Vital Signs Vital Signs Vital Signs: 03/10/24 14:52 Temperature 97.9 F Temperature Source Temporal Pulse Rate 73 Respiratory Rate 18 Blood Pressure 133/73 H Blood Pressure Mean 93 Blood Pressure Source Monitor Blood Pressure Position Semi-Fowlers Blood Pressure Location Left Arm Oxygen Delivery Method Room Air Weight Weight: 195 lb Body Mass Index (BMI) 24.3 Physical Exam Const alert, oriented x3, no apparent distress, average body habitus and well nourished Constitutional Narrative: The patient is of relatively normal body habitus, with a BMI of 24.3. General Appearance: cooperative, comfortable, well kempt and well developed Orientation / Consciousness: awake, oriented to person, oriented to place and oriented to time Exam Limitations: no limitations HEENT normocephalic, head/scalp atraumatic and hearing grossly normal bilaterally Head and Scalp: normal to inspection, normocephalic and atraumatic External Ear: external ears normal Eyes PERRL and EOMs intact bilaterally General Eye: normal appearance of both eyes Neck full ROM Chest inspection of chest normal Resp normal respiratory effort, normal air movement, no retractions, no use of accessory muscles and clear to auscultation bilaterally Effort and Inspection: able to speak in complete sentences and symmetric chest movement Cardio regular rate, regular rhythm, S1 normal heart sound and S2 normal heart sound Extremity no calf tenderness General Extremity: Negative for clubbing or cyanosis Skin Wound Narrative: A vertical midline incision is noted, with a focal dehiscence near the middle of the incision. Dimensions are documented elsewhere. There is no sign of infection or cellulitis. A small amount of bioburden is noted. No drainage or odor are noted. The dehiscent surgical wound is tunneled, with a depth as documented elsewhere. Neuro oriented x3, CN's II-XII intact bilaterally, moves all extremities and no focal motor deficits Sensorium / Orientation: awake, alert, oriented to person, oriented to place and oriented to time Psych Appearance: grossly normal and appropriate Attitude: calm Activity / Motor Behavior: appropriate eye contact Speech: normal speech Mood & Affect: euthymic mood Thought Process: normal thought process Thought Content: normal thought content Attention / Concentration: attention grossly intact Debridement Note Debridement Note Post-Debridement Measurements and Additional Note: Post-Debridement Measurements/Treatment - Nurse 1 - General Ulcer Assessment Start: 03/03/24 15:09 Freq: Status: Active Protocol: ALVARO Activity Type Activity Date Activity User E-sign Co-sign Detail Recorded Client Recorded Date Recorded By Document 03/03/24 15:11 KW Desktop 03/03/24 15:12 KW Document 03/10/24 14:52 KW [id number] 03/10/24 15:01 KW 03/03/24 03/10/24 15:11 14:52 - Today's Visit Information Type of service Follow-up Visit Follow-up Visit (Physician/BUTTON CLAMPER (Physician/BUTTON CLAMPER ) ) Arrival Mode Ambulatory Patient Identification Verified (Name & Yes Yes ) Height and Weight Body Mass Index (BMI) 24.3 24.3 BMI Classification Normal Normal Vital Signs Temperature (97.8 F-99.1 F) 97.0 F L 97.9 F Temperature Source Temporal Temporal Pulse Rate (60-100) 78 73 Pulse Location Monitor Monitor Respiratory Rate (12-18) 18 18 Respiratory rate source Observation Observation Oxygen Delivery Method Room Air Room Air Blood Pressure (90/60-120/80) 123/81 H 133/73 H Blood Pressure Mean 95 93 Source Monitor Monitor Position Semi-Fowlers Semi-Fowlers Blood Pressure Location Left Arm Left Arm History Since Last Visit- (Skip if this is Patient's initial visit) Have you changed medications since your No No last visit? Any new allergies or adverse reactions No No Had a fall/change in ADL's that may No No increase risk of falls Signs or symptoms of abuse and/or No No neglect since last visit Have you been in the hospital since your No No last visit? Has dressing in place as prescribed Yes Yes Has compression in place as prescribed N/A N/A Has offloadiing in place as prescribed N/A N/A Experienced any changes in pain level or No No management Left Footwear Regular Shoe Regular Shoe Right Footwear Regular Shoe Regular Shoe Pain Scale: 0-10 Numeric Is Patient Pain Free? Yes Yes - Nurse 1 - General Ulcer Measurement Start: 03/03/24 15:09 Freq: Status: Active Protocol: Activity Type Activity Date Activity User E-sign Co-sign Detail Recorded Client Recorded Date Recorded By Document 03/03/24 15:11 KW Desktop 03/03/24 15:12 KW Document 03/10/24 14:52 KW [id number] 03/10/24 15:01 KW 03/03/24 03/10/24 15:11 14:52 Wound Center Nurse 1 #1 ant abd wall -Current Size (cm) - Length 0.8 0.5 -Current Size (cm) - Width 0.7 0.4 -Current Size (cm) - Depth 2 1.4 -Total Square Cm 0.56 0.20 -Exudate Amt Small -Exudate Type Serosanguineous -Wound Margin Distinct, Distinct, Outline Outline Attached Attached -Granulation Amt Large (67-100%) Large (67-100%) -Granulation Quality Red Red -Necrosis Amt Small (1-33%) -Necrotic Tissue Type Adherent Slough -Texture (Manisha-wound Skin Appearance) Assessed Assessed -Moisture (Manisha-wound Skin Appearance) Assessed Assessed, Maceration -Color (Manisha-wound Skin Appearance) Assessed Assessed, Erythema -Temperature (Manisha-wound Skin No Abnormality No Abnormality Appearance) (Pt Warm) (Pt Warm) -Tenderness on Palpation (Manisha-wound No No Skin Appearance) -Ulcer Cleansing Soap and Water Soap and Water -Foul Odor after Cleansing No -Anesthetic Used 4% Lidocaine 4% Lidocaine Solution Solution - Nurse 2 - General Ulcer CM Notes Start: 03/03/24 15:09 Freq: Status: Active Protocol: Activity Type Activity Date Activity User E-sign Co-sign Detail Recorded Client Recorded Date Recorded By Document 03/03/24 15:20 JF Laptop 03/03/24 15:23 Document 03/10/24 15:18 DS [id number] 03/10/24 15:20 DS 03/03/24 03/10/24 15:20 15:18 Wound Center Nurse 2 #1 ant abd wall -Time 15:21 15:18 -Correct Patient Yes Yes -Correct Side, Site, Position Yes Yes -Correct Procedure Yes Yes -Procedure Performed Yes Yes -Type of Procedure Debridement Debridement -Clinical Debridement Subcutaneous Subcutaneous -Tissue Removed Subcutaneous Subcutaneous -Post Debridement (cm) - Length 0.7 0.6 -Post Debridement (cm) - Width 0.8 0.5 -Post Debridement (cm) - Depth 2.6 2.4 -Total Square (Post) (cm) 0.56 0.30 -Area of Debridement (cm) - Length 0.7 0.6 -Area of Debridement (cm) - Width 0.8 0.5 -Total Square (Area) (cm) 0.56 0.30 -Tunneling No No -Undermining/Tunneling No No -Circular Undermining No No -Wound/Ulcer Outcome Not Healed Not Healed -Ulcer Cleansing Rinsed/ Rinsed/ Irrigated with Irrigated with Saline Saline -Foul Odor after Cleansing No -Bioengineered Tissue No -Bleeding Controlled with Pressure Pressure -Treatment Response Procedure Procedure Tolerated Well Tolerated Well -Offloading No -Debridement - Subq, 1st 20sq cm Yes Yes Pain Scale: 0-10 Numeric Is Patient Pain Free? Yes Yes WC - Nurse 3 - General Ulcer D/C NN Start: 03/03/24 15:09 Freq: Status: Active Protocol: Activity Type Activity Date Activity User E-sign Co-sign Detail Recorded Client Recorded Date Recorded By Document 03/03/24 15:34 KW Desktop 03/03/24 15:35 KW Document 03/10/24 15:35 RB [id number] 03/10/24 15:36 RB 03/03/24 03/10/24 15:34 15:35 Wound Care Center Nurse 3 #1 ant abd wall -Ulcer Cleansing Rinsed/ Irrigated with Saline -Negative Pressure Wound Therapy Continue -Setting (mmHg) 150 -Negative Pressure is Continuous -Primary Dressing Applied Aquacel Extra -Other Dressing excel SAP -NPWT Application Charge NPWT & Debridement (nc ) -Aquacel Extra 1 Treatment Response Procedure Tolerated Well Pain Scale: 0-10 Numeric Is Patient Pain Free? Yes Yes Teaching: Wound Center Dressing Your Wound -Person Taught Patient -Teaching Method Discussion, Demonstration -Response to teaching Verbalize understanding WC - Visit Discharge Discharge Condition Stable Stable Ambulatory Status Ambulatory Ambulatory Transportation Private Auto Private Auto Medication Reconcilliation completed & No No provided to patient/care provider Clinical Summary of Care Provided Yes Yes Notes: Aga Farrell LPN assisted with dressing Assessment/Plan Assessment/Plan (1) Nonhealing surgical wound: CODE(S): T81.89XA - Other complications of procedures, not elsewhere classified, initial encounter (2) Anterior abdomen avulsion: CODE(S): S31.109A - Unspecified open wound of abdominal wall, unspecified quadrant without penetration into peritoneal cavity, initial encounter QUALIFIERS: Encounter type: subsequent encounter Qualified Code(s): S31.109D - Unspecified open wound of abdominal wall, unspecified quadrant without penetration into peritoneal cavity, subsequent encounter (3) Status post right hemicolectomy: CODE(S): Z90.49 - Acquired absence of other specified parts of digestive tract (4) S/P exploratory laparotomy: CODE(S): Z98.890 - Other specified postprocedural states (5) Infection following a procedure, deep incisional surgical site, initial encounter: CODE(S): T81.42XA - Infection following a procedure, deep incisional surgical site, initial encounter (6) BMI 26.0-26.9,adult: CODE(S): Z68.26 - Body mass index [BMI] 26.0-26.9, adult (7) History of abdominal abscess: CODE(S): Z87.898 - Personal history of other specified conditions (8) History of open reduction and internal fixation (ORIF) procedure: CODE(S): Z98.890 - Other specified postprocedural states PLAN: Plan This is a 43-year-old generally healthy male who underwent urgent surgical intervention on January 11, 2024. He was diagnosed with an intussusception of the ileocecal valve, and underwent a hand-assisted laparoscopic right hemicolectomy. Thereafter, the patient developed complications. He developed an infection of his surgical incision. Following his discharge, he required readmission with an intra-abdominal abscess, which required exploratory laparotomy with washout and drain placement. He continued to suffer from postoperative complications. He was subsequently transferred to [facility], where he underwent percutaneous drain placement using CT imaging. He presented in the course of his recovery, with an open, tunneled wound within his surgical incision. The wound is generally healthy in appearance, though is tunneled into the subcutaneous tissue layer. Recent management has been by means of negative pressure wound therapy. We are to take a wound VAC holiday, and initiate management using Aquacel packed within the wound on a daily basis. The patient has been instructed in the appropriate means of application. Recent updates by other providers have included removal of his intravenous PICC catheter, initiation of doxycycline 100 mg p.o. twice daily, which is anticipated for 6 months, and laboratory studies which have been done earlier today. Laboratory results are as follows: Sodium 139, potassium 4.0, chloride 106, BUN 17, creatinine 1.11, glucose 112, calcium 10.3, total bilirubin 1.20, AST 43, ALT 119, alkaline phosphatase 146, total protein 8.4, albumin 4.3. Antibiotic management is as per the patient's infectious disease specialist at [facility]. The patient has been encouraged to optimize his nutritional intake. The patient is to return in 1 week for reassessment. Total time: 25 minutes
== END 2024-03-27 23:59 | disposition home or self-care (01) ==
LOC: WC 14:30
PROVIDERS: Referring Provider Surgery Trauma Surgery; Visit Provider Surgery
DX: T81.42XA Infection following a procedure, deep incisional surgical site, initial encounter (principal); S31.109A Unspecified open wound of abdominal wall, unspecified quadrant without penetration into peritoneal cavity, initial encounter; Y83.8 Other surgical procedures as the cause of abnormal reaction of the patient, or of later complication, without mention of misadventure at the time of the procedure; Z90.49 Acquired absence of other specified parts of digestive tract
CPT/HCPCS: 11042

== ENCOUNTER → 2024-03-10 | Outpatient (CLI) | payer BC, SELFPAY ==
[2024-03-10 11:22] LABS: AST(SGOT) 43 U/L (15-37); Alanine Aminotransfer ALT/SGPT 119 U/L (16-61); Albumin, Serum 4.3 g/dL (3.2-5.0); Alkaline Phosphatase 146 U/L (45-117); Anion Gap 4 (5-15); BUN 17 mg/dL (7-18); BUN/Creat Ratio 15.3 RATIO (10-20); Calcium,Total 10.3 mg/dL (8.5-10.1); Chloride 106 mmol/L (98-107); Creatinine, Serum 1.11 mg/dL (0.70-1.30); EST Glomerular Filtration Rate 77 mL/min (>60); Est Glom Filt Rate - Afr Amer 93 mL/min (>60); Globulin 4.1 g/dL (2.2-4.2); Glucose 112 mg/dL (74-106); Protein, Total 8.4 g/dL (6.4-8.2); Sodium Level 139 mmol/L (136-145)
== END | disposition home or self-care (01) ==
LOC: PAVLAB 10:29
PROVIDERS: Referring Provider Surgery; Visit Provider Surgery
DX: K55.069 Acute infarction of intestine, part and extent unspecified (principal)
CPT/HCPCS: 36415; 80053

== ENCOUNTER 2024-03-20 17:53 | Emergency (ER) | payer BC, SELFPAY ==
[2024-03-20 17:54] VITALS: BP 127/80; PULSE 99; RESP 16; TEMP 37; O2SAT 97; BMI 24.6
[2024-03-20 17:58] VITALS: BP 127/80; PULSE 97; RESP 17; TEMP 37; O2SAT 97
--- NOTE | 2024-03-20 18:36 | EDS_ITS ---
HPI History of Present Illness Chief Complaint: Fever Informant: patient Onset/Context/Timing Onset: Today Context: Gradual Onset Timing: Continuous Quality: Malaise Location: Generalized Worsened by: Nothing Relieved by: Tylenol Narrative Narrative: Patient presents with a fever that began today. Patient states that his fever went up to 101.3 at home. Patient states he started having some chills this afternoon. Patient states that he has been having some general malaise, myalgias, and arthralgias. Patient had recent abdominal surgeries for intussusception and abscess. Patient states he still has an open wound in his abdomen. Patient states that the home health nurse checked the wound today and noted that the packing was starting to come out. Patient states that after his surgery he was on IV antibiotics through a PICC line. Patient states the PICC line had been removed and he has been on oral antibiotics. Patient states he was initially started on amoxicillin and then was changed to doxycycline. Patient states that it was again changed to plain Pen-Vee K. Patient states that he called his infectious disease doctor today and was told to stop the Pen- Vee K and was going to be switched to a different antibiotic. Patient states that his infectious disease doctor also wanted him tested for C. difficile. Patient states he took some Tylenol which did help with his fever. Prior similar symptoms: Yes Recent Illness/Hospitalization: Yes PFSH [facility] Medical History Anterior abdomen avulsion History of abdominal abscess Nonhealing surgical wound Collar bone fracture Home Medications ?Medication ?Instructions ?Recorded ?Last Taken ?Type apixaban 5 mg (74 tabs) tablets in 5 mg PO BID blood clot 1 month #60 03/04/24 Unknown Rx a dose pack (Eliquis DVT-PE Treat tabs 30D Start) doxycycline monohydrate 100 mg 100 mg PO BID 03/10/24 Unknown History tablet Allergy/AdvReac Type Severity Reaction Status Date / Time No Known Allergies Allergy Verified 03/20/24 18:00 Family History (Updated 03/17/24 @ 09:59 by Tayla Monteiro) Mother Diabetes Father Diabetes Cancer prostate Surgical History History of open reduction and internal fixation (ORIF) procedure Status post right hemicolectomy H/O hernia repair Social History Smoking Status: Never smoker alcohol intake: never substance use type: does not use ROS ROS ED Constitutional Constitutional ED: Reports chills and fever(s) Eyes Eyes: Denies blurry vision or change in vision ENT ENT ED: Denies rhinorrhea or sore throat Cardiovascular Cardiovascular: Denies chest pain or palpitations Respiratory/Chest Respiratory/Chest: Denies cough or dyspnea Gastrointestinal Gastrointestinal: Reports diarrhea and nausea; Denies vomiting Genitourinary Genitourinary ED: Denies dysuria or hematuria Musculoskeletal Musculoskeletal: Reports arthralgias and myalgias; Denies back pain or neck pain Integumentary Denies abscess or rash Neurologic Neurologic: Reports headache(s); Denies weakness Allergic/Immunologic Allergic/Immunologic ED: Denies mouth swelling or urticaria EXAM Physical Exam Const Vital Signs: 03/20/24 17:54 03/20/24 17:58 03/20/24 18:17 Temperature 98.6 F 98.6 F Temperature Source Temporal Temporal Pulse Rate 99 97 Respiratory Rate 16 17 Respiratory Effort Normal Respiratory Pattern Normal Blood Pressure 127/80 H 127/80 H Blood Pressure Mean 95 95 Pulse Ox 97 97 Oxygen Delivery Method Room Air Room Air 03/20/24 19:54 03/20/24 21:00 Temperature 98.3 F Temperature Source Temporal Pulse Rate 77 74 Respiratory Rate 14 18 Respiratory Effort Respiratory Pattern Blood Pressure 124/82 H Blood Pressure Mean 96 Pulse Ox 96 Oxygen Delivery Method Room Air Room Air Positive well nourished and well developed General Appearance ED: cooperative and well developed Orientation / Consciousness: awake HEENT normocephalic and atraumatic Mouth ED: Yes moist mucous membranes normal Neck full ROM and no JVD Resp normal respiratory effort and clear to auscultation bilaterally Cardio regular rate and regular rhythm GI non-distended Auscultation: normoactive bowel sounds Palpation: soft and tender periumbilical Extremity normal to inspection and full ROM Neuro oriented x3, CN's II-XII intact bilaterally, moves all extremities, no focal motor deficits and no sensory deficits noted Rachid Coma Scale: document GCS findings Spontaneous Obeys Commands Oriented 15 Sensorium / Orientation: awake and alert Speech: speech normal Motor Exam: strength 5/5 throughout Psych mental status grossly normal and thought process normal MDM MDM MDM Narrative Medical decision making narrative: Differential diagnosis includes abdominal abscess, postoperative wound infection, sepsis, pneumonia, urinary tract infection, bowel obstruction, perforation, pancreatitis, and viral illness. CT scan of the abdomen pelvis will be obtained to assess for bowel obstruction, perforation, and abscess. CBC will be obtained to assess for leukocytosis and anemia. Comprehensive metabolic profile will be obtained to assess for hepatic function, renal function, and electrolyte abnormality. Lipase will be obtained to assess for pancreatitis. Lactate will be obtained to assess for sepsis. Urinalysis will be obtained to assess for urinary tract infection and hematuria. C. difficile will be obtained to assess for C. difficile infection. Lab Data Attestation: I reviewed the patient's lab results. Lab results narrative: CBC was reviewed. There is a mild leukocytosis of 11.3. The remainder is within normal limits. Comprehensive metabolic profile was reviewed. Total bilirubin was slightly elevated at 1.4. ALT was mildly elevated at 75. The remainder was within normal limits. Lipase was reviewed and was normal at 29. Urinalysis was reviewed. There is no evidence of urinary tract infection or hematuria. Labs: Laboratory Results - last 24 hr 03/20/24 03/20/24 18:25 20:56 WBC 11.3 H RBC 5.11 Hgb 14.0 Hct 42.6 MCV 83.4 MCH 27.4 MCHC 32.9 RDW Std Deviation 38.8 RDW Coeff of Khadijah 12.8 Plt Count 237 MPV 10.1 Immature Gran % (Auto) 0.500 Neut % (Auto) 81.5 H Lymph % (Auto) 5.9 L Clinch % (Auto) 8.6 Eos % (Auto) 2.9 Baso % (Auto) 0.6 Absolute Neuts (auto) 9.2 H Absolute Lymphs (auto) 0.67 L Nucleated RBC % 0 Sodium 135 L Potassium 3.6 Chloride 103 Carbon Dioxide 24.0 Anion Gap 8 BUN 16 Creatinine 1.15 Estim Creat Clear Calc 98.99 Est GFR (MDRD) Af Amer 89 Est GFR (MDRD) Non-Af 74 BUN/Creatinine Ratio 13.9 Glucose 121 H Lactic Acid 1.4 Calcium 9.5 Total Bilirubin 1.40 H AST 33 ALT 75 H Alkaline Phosphatase 115 Total Protein 7.3 Albumin 3.8 Globulin 3.5 Albumin/Globulin Ratio 1.1 Lipase 29 Urine Color Yellow Urine Clarity Clear Urine pH 6.0 Ur Specific [place] 1.010 Urine Protein Negative Urine Glucose (UA) Normal Urine Ketones Negative Urine Occult Blood Negative Urine Nitrite Negative Urine Bilirubin Negative Urine Urobilinogen Normal Ur Leukocyte Esterase Negative Urine RBC 0 SEEN Urine WBC 0 SEEN Ur Squamous Epith Cells 0 SEEN Urine Bacteria 0 SEEN Urine Mucus 0 SEEN Radiography Diagnostic Testing: Clinical Impression(s) from Imaging Studies Abdomen/Pelvis CT 03/20/24 18:37 IMPRESSION: Post surgical changes status post right hemicolectomy.. Findings consistent with postsurgical phlegmonous process and possibly evolving abscess at the operative site.. There is also thickening of the molina of the ileal anastomotic loop Electronically Signed: Nickolas Berry MD at 20:55 EDT , ADDENDUM: 03/20/242105 IMPRESSION: Post surgical changes status post right hemicolectomy.. Findings consistent with postsurgical phlegmonous process and possibly evolving abscess at the operative site.. There is also thickening of the molina of the ileal anastomotic loop N.B. : The above Results were Read Back by Nickolas Berry MD to Bulmaro Vazquez DO, and understanding confirmed on 03/20/2024 21:00:00 (ET). Electronically Signed: Nickolas Berry MD at 20:55 EDT , CT scan of the abdomen pelvis was obtained. There are postsurgical changes noted. There are changes consistent with postsurgical phlegmonous process and possibly developing abscess at the operative site. There is also thickening of the molina at the ileal anastomotic loop. This was interpreted by the radiologist was also independently reviewed by myself. Treatment and Re-Evaluation :: Patient was given morphine and Zofran. Blood cultures were obtained. Patient was started on Zosyn. Patient was advised of his findings. Since his most recent surgery was at [facility], patient will need to be caballero sferred there. Case was discussed with the transfer line at [facility]. He accepted the patient to be transferred there. Patient understands and is agreeable with the plan. All questions were answered. Discharge Plan Triage Chief Complaint: Fever ED Provider: Bulmaro Vazquez Dx/Rx/DC Orders Clinical Impression: Abscess, intra-abdominal, postoperative, Status post right hemicolectomy, Leukocytosis Prescriptions: No Action doxycycline monohydrate 100 mg tablet 100 mg PO BID Eliquis DVT-PE Treat 30D Start 5 mg (74 tabs) tablets,dose pack 5 mg PO BID 30 Days Qty: 60 0RF Rx Instructions: Take one tablet by mouth twice daily Primary Care Provider: Care Physician,No Primary Referrals: Care Physician,No Primary [Primary Care Provider] - Print Language: Spanish Disposition Disposition: Acute Care Hospital Discharge Location: [facility]
--- NOTE | 2024-03-20 18:37 | CT_ITS ---
We are attempting to reach an attending provider to discuss findings. An addendum with communication details will be sent when the communication is complete. STUDY: CT ABDOMEN AND PELVIS WITH CONTRAST REASON FOR EXAM: Male, 43 years old. Abdominal pain, fever -- RADIATION DOSAGE (If Supplied By Facility): CTDIvol = ( 16.98 ) mGy, DLP = ( 994.14 ) mGycm TECHNIQUE: Transaxial images were obtained from the dome of the diaphragm to the symphysis pubis without oral contrast. Oral and amp; IV Gastrografin and amp; 100mL Isovue-370 was administered. Sagittal and coronal images were reconstructed. Individualized dose optimization techniques were used for this CT. COMPARISON: None. FINDINGS: The visualized lung bases are unremarkable. The visualized portions of the heart are within normal limits. Liver is normal size. There is a tiny hypoattenuated density in both the right and left lobes which are too small to characterize. Bile ducts are not dilated. Normal gallbladder and extrahepatic biliary system. Normal spleen. Normal pancreas. Normal bilateral adrenal glands. Normal right kidney. Normal left kidney. Normal visualized stomach. Normal small intestine. Postsurgical changes status post right hemicolectomy.. . There is thickening of the molina of the distal ileum at the anastomosis consistent with inflammatory changes and stranding in the fat. There is also a small thick walled fluid density at the operative site distant with phlegmonous process and evolving abscess measuring 2.8 x 1.3 cm Minor diverticular disease of the sigmoid colon without evidence for acute diverticulitis Normal abdominal aorta. Normal inferior vena cava. Normal retroperitoneum. Normal urinary bladder. Normal abdominal wall. Normal osseous structures. CT/Abdomen/Pelvis WITH Contrast IMPRESSION: Post surgical changes status post right hemicolectomy.. Findings consistent with postsurgical phlegmonous process and possibly evolving abscess at the operative site.. There is also thickening of the molina of the ileal anastomotic loop Electronically Signed: Nickolas Berry MD at 20:55 EDT ,
[2024-03-20 18:47] LABS: Absolute Lymphocyte Count 0.67 X10^3/uL (0.83-4.51); Absolute Neutrophil Count 9.2 X10^3/uL (2.0-7.7); Basophil# 0.07 X10^3/uL; Basophil% 0.6 % (0-1); Eosinophil# 0.33 X10^3/uL; Eosinophils% 2.9 % (0-5); Hematocrit 42.6 % (40-54); Lymphocyte # 0.67 X10^3/ul (0.83-4.51); Lymphocyte % 5.9 % (19-41); Mean Corp Hgb Conc 32.9 g/dL (32-36); Mean Corpuscular Hgb 27.4 pg (27.0-32.0); Mean Corpuscular Volume 83.4 fL (80-94); Mean Platelet Vol. 10.1 fl (6.2-12.0); Monocyte# 0.98 X10^3/uL; Monocyte% 8.6 % (0-10); NRBC Flagged by Analyzer 0 % (0-5); Neutrophil # 9.23 X10^3/uL (2.7-7.7); Neutrophil % 81.5 % (47-70); Platelet Count 237 K/mm3 (150-450); RBC Distribution Width CV 12.8 % (11.6-14.6); RBC Distribution Width SD 38.8 fl (35.1-43.9); Red Blood Count 5.11 M/mm3 (4.6-6.2); White Blood Count 11.3 K/mm3 (4.4-11.0)
[2024-03-20 19:00] LABS: ALB/GLOB Ratio 1.1 RATIO (0.9-2.4); AST(SGOT) 33 U/L (15-37); Alanine Aminotransfer ALT/SGPT 75 U/L (16-61); Albumin, Serum 3.8 g/dL (3.2-5.0); Alkaline Phosphatase 115 U/L (45-117); Anion Gap 8 (5-15); BUN 16 mg/dL (7-18); BUN/Creat Ratio 13.9 RATIO (10-20); Calcium,Total 9.5 mg/dL (8.5-10.1); Chloride 103 mmol/L (98-107); Creatinine, Serum 1.15 mg/dL (0.70-1.30); EST Glomerular Filtration Rate 74 mL/min (>60); Est Glom Filt Rate - Afr Amer 89 mL/min (>60); Estimated Creatinine Clearance 98.99 ml/min; Globulin 3.5 g/dL (2.2-4.2); Glucose 121 mg/dL (74-106); Lactic Acid 1.4 mmol/L (0.4-1.9); Lipase 29 U/L (13-75); Potassium 3.6 mmol/L (3.5-5.1); Protein, Total 7.3 g/dL (6.4-8.2); Sodium Level 135 mmol/L (136-145)
[2024-03-20 19:54] VITALS: BP 124/82; PULSE 77; RESP 14; O2SAT 96
[2024-03-20 21:00] VITALS: PULSE 74; RESP 18; TEMP 36.8
[2024-03-20 21:00] LABS: Bacteria 0 SEEN /hpf (None Seen); Mucous, Urine 0 SEEN /hpf (<or=2+); Red Blood Cells-Urine 0 SEEN /hpf (0-5); Squamous Epithelial Cells - UA 0 SEEN /hpf (0-5); White Blood Cells 0 SEEN /hpf (0-5)
[2024-03-20 21:16] LABS: Color, Urine Yellow (Yellow); Glucose, Dipstick Normal (Normal); Ketone-Dipstick Negative (Negative); Leukocyte Esterase-Dipstick Negative /ul (Negative); Nitrite-Dipstick Negative (Negative); Occult Blood-Urine Negative /ul (Negative); Protein-Dipstick Negative (Negative); Urine Bilirubin Dipstick Negative (Negative); Urine Clarity Clear (Clear); Urine Urobilinogen Normal (Normal)
[2024-03-20] MEDS: Ondansetron 4 MG/2 ML Vial IV (21:57)
[2024-03-20] MEDS: Piperacil/Tazobactam 4.5 GM in 0.9% Normal Saline (100mL MB+) 100 ML IV (21:57)
[2024-03-20 22:51] VITALS: BP 105/79; PULSE 65; RESP 19; TEMP 36.6; O2SAT 96
== END 2024-03-20 23:19 | disposition short-term general hospital (02) ==
PROVIDERS: Emergency Provider Emergency Medicine; Visit Provider Emergency Medicine
DX: T81.43XA Infection following a procedure, organ and space surgical site, initial encounter (principal); K65.1 Peritoneal abscess; D72.829 Elevated white blood cell count, unspecified; Y83.8 Other surgical procedures as the cause of abnormal reaction of the patient, or of later complication, without mention of misadventure at the time of the procedure
CPT/HCPCS: 74177; 80053; 81001; 83605; 83690; 85025; 87040; 96365; 96375; 99285; J7050; Q9967; A4216; J2405

== ENCOUNTER → 2024-03-24 | Outpatient (CLI) | payer BC, SELFPAY ==
[2024-03-24 11:27] LABS: Absolute Lymphocyte Count 1.73 X10^3/uL (0.83-4.51); Basophil# 0.08 X10^3/uL; Basophil% 1.1 % (0-1); Eosinophil# 0.46 X10^3/uL; Eosinophils% 6.6 % (0-5); Hematocrit 44.4 % (40-54); Hemoglobin 14.5 g/dL (13.0-16.5); Lymphocyte # 1.73 X10^3/ul (0.83-4.51); Lymphocyte % 24.9 % (19-41); Mean Corp Hgb Conc 32.7 g/dL (32-36); Mean Corpuscular Hgb 27.4 pg (27.0-32.0); Mean Corpuscular Volume 83.8 fL (80-94); Mean Platelet Vol. 9.6 fl (6.2-12.0); Monocyte# 0.66 X10^3/uL; Monocyte% 9.5 % (0-10); NRBC Flagged by Analyzer 0 % (0-5); Neutrophil # 4.01 X10^3/uL (2.7-7.7); Neutrophil % 57.6 % (47-70); Platelet Count 281 K/mm3 (150-450); RBC Distribution Width CV 12.8 % (11.6-14.6); RBC Distribution Width SD 38.7 fl (35.1-43.9)
[2024-03-24 11:36] LABS: Anion Gap 7 (5-15); BUN 15 mg/dL (7-18); BUN/Creat Ratio 11.8 RATIO (10-20); Calcium,Total 10.1 mg/dL (8.5-10.1); Chloride 103 mmol/L (98-107); Creatinine, Serum 1.27 mg/dL (0.70-1.30); EST Glomerular Filtration Rate 66 mL/min (>60); Est Glom Filt Rate - Afr Amer 79 mL/min (>60); Glucose 104 mg/dL (74-106); Potassium 4.2 mmol/L (3.5-5.1); Sodium Level 139 mmol/L (136-145)
== END | disposition home or self-care (01) ==
LOC: PAVLAB 11:06
PROVIDERS: Referring Provider Physician Assistant; Visit Provider Physician Assistant
DX: D72.829 Elevated white blood cell count, unspecified (principal)
CPT/HCPCS: 36415; 80048; 85025

== ENCOUNTER → 2024-04-03 | Outpatient (CLI) | payer BC, SELFPAY ==
--- NOTE | 2024-04-03 13:34 | CT_ITS ---
STUDY: CT ABDOMEN AND PELVIS WITH CONTRAST REASON FOR EXAM: Male, 43 years old. Intraabdominal abscess/fluid collection evaluation -- History of intraabdominal abscess, RLQ RADIATION DOSAGE (If Supplied By Facility): CTDIvol = ( 11.95 ) mGy, DLP = ( 766.13 ) mGycm TECHNIQUE: Transaxial images were obtained from the dome of the diaphragm to the symphysis pubis with oral contrast. Oral and amp; IV Readi-CAT and amp; 100mL Isovue-300 was administered. Sagittal and coronal images were reconstructed. Individualized dose optimization techniques were used for this CT. COMPARISON: Comparison is made with prior study dated March 20, 2024. FINDINGS: The visualized lung bases are unremarkable. The visualized portions of the heart are within normal limits. Subcentimeters cyst is seen in the anterior lateral aspect of the right lobe of the liver. Normal gallbladder and extrahepatic biliary system. Normal spleen. Normal pancreas. Normal bilateral adrenal glands. Normal right kidney. Normal left kidney. Normal visualized stomach. Normal small intestine. Postoperative changes with anastomotic line seen in the right lower quadrant. Mild degree of residual postoperative changes seen. The previously seen thick-walled fluid collection has decreased in size. Air is seen within it and presently measures 2 cm x 1.7 cm. The appendix is visualized and appears normal. Normal abdominal aorta. Normal inferior vena cava. Normal retroperitoneum. Normal urinary bladder. Normal abdominal wall. Degenerative changes at the L5-S1 level. CT/Abdomen/Pelvis WITH Contrast IMPRESSION: Status post right hemicolectomy with postsurgical changes and improvement of the previously seen thick-walled fluid collection in the right lower quadrant. No new abnormality is seen. Electronically Signed: Charlie Melo MD at 14:32 EDT ,
== END | disposition home or self-care (01) ==
LOC: CT 13:30
PROVIDERS: Referring Provider Physician Assistant; Visit Provider Physician Assistant
DX: T81.43XA Infection following a procedure, organ and space surgical site, initial encounter (principal)
CPT/HCPCS: 74177; Q9967

== ENCOUNTER → 2024-04-08 | Outpatient (CLI) | payer BC, SELFPAY ==
--- NOTE | 2024-04-08 16:00 | RAD_ITS ---
STUDY: X-RAY - LUMBAR SPINE REASON FOR EXAM: Male, 43 years old. Low back pain, recent abdominal infection TECHNIQUE: 3 view(s) of the lumbar spine were obtained. COMPARISON: None FINDINGS: There is an exaggerated lumbar lordosis. There is no substantial scoliosis. There is a normal alignment of the vertebrae. Mild anterior spondylosis at the L3-L4 and L5-S1 levels. Moderate degree of disc space narrowing at the L5-S1 level. The soft tissue structures are unremarkable. RAD/Lumbar Spine 2 or 3 Views IMPRESSION: Moderate degree of disc space narrowing at the L5-S1 level. Electronically Signed: Charlie Melo MD at 8:29 EDT ,
[2024-04-08 17:01] LABS: Absolute Lymphocyte Count 1.79 X10^3/uL (0.83-4.51); Absolute Neutrophil Count 4.8 X10^3/uL (2.0-7.7); Basophil# 0.09 X10^3/uL; Basophil% 1.2 % (0-1); Eosinophil# 0.26 X10^3/uL; Eosinophils% 3.4 % (0-5); Hematocrit 45.7 % (40-54); Lymphocyte # 1.79 X10^3/ul (0.83-4.51); Lymphocyte % 23.3 % (19-41); Mean Corp Hgb Conc 32.8 g/dL (32-36); Mean Corpuscular Hgb 27.4 pg (27.0-32.0); Mean Corpuscular Volume 83.5 fL (80-94); Mean Platelet Vol. 10.5 fl (6.2-12.0); Monocyte# 0.74 X10^3/uL; Monocyte% 9.6 % (0-10); NRBC Flagged by Analyzer 0 % (0-5); Neutrophil # 4.76 X10^3/uL (2.7-7.7); Neutrophil % 62.1 % (47-70); Platelet Count 305 K/mm3 (150-450); RBC Distribution Width CV 12.9 % (11.6-14.6); RBC Distribution Width SD 39.4 fl (35.1-43.9); Red Blood Count 5.47 M/mm3 (4.6-6.2); White Blood Count 7.7 K/mm3 (4.4-11.0)
[2024-04-08 17:23] LABS: ALB/GLOB Ratio 1.2 RATIO (0.9-2.4); AST(SGOT) 25 U/L (15-37); Alanine Aminotransfer ALT/SGPT 54 U/L (16-61); Albumin, Serum 4.2 g/dL (3.2-5.0); Alkaline Phosphatase 96 U/L (45-117); Anion Gap 6 (5-15); BUN 18 mg/dL (7-18); BUN/Creat Ratio 15.3 RATIO (10-20); Calcium,Total 9.8 mg/dL (8.5-10.1); Chloride 105 mmol/L (98-107); Creatinine, Serum 1.18 mg/dL (0.70-1.30); EST Glomerular Filtration Rate 71 mL/min (>60); Est Glom Filt Rate - Afr Amer 86 mL/min (>60); Globulin 3.6 g/dL (2.2-4.2); Glucose 97 mg/dL (74-106); Potassium 4.4 mmol/L (3.5-5.1); Protein, Total 7.8 g/dL (6.4-8.2); Sodium Level 141 mmol/L (136-145)
== END | disposition home or self-care (01) ==
PROVIDERS: PCP Internal Medicine; Referring Provider Internal Medicine; Visit Provider Internal Medicine
DX: M54.89 Other dorsalgia (principal)
CPT/HCPCS: 36415; 72100; 80053; 85025

== ENCOUNTER 2024-04-10 21:48 | Emergency (ER) | payer BC, SELFPAY ==
[2024-04-10 21:49] VITALS: BP 131/93; PULSE 66; RESP 17; TEMP 36.1; O2SAT 100; BMI 24.9
--- NOTE | 2024-04-10 22:17 | EX.ED.DYSGE1 ---
HPI History of Present Illness Chief Complaint: Anxiety Informant: patient and spouse/S.O. Narrative Narrative: Patient is a 43-year-old male with past medical history of abdominal abscess that has led to a chronic postoperative wound. He states that he has been dealing with complications of his infection and surgical procedure for almost a year. He states that he has severe anxiety over the fact that his symptoms have not been completely resolved this far into the treatment regimen. He states that in the last 2 days in the evening time he will have a sensation where he feels like something bad is going to happen and he cannot calm down or function. He states he is not on any type of stimulant medication he denies any excessive segments [id number] such as caffeine or nicotine and he denies any illicit drug use. However as his symptoms have occurred twice in the last 2 days and he is concerned he may need medication to help control them if they occur in the future he presents for evaluation [facility] Medical History (Updated 04/10/24 @ 23:[address] Ayden Vidales, DO) COVID-19 Superior mesenteric vein thrombosis Sepsis without acute organ dysfunction Anterior abdomen avulsion History of abdominal abscess Nonhealing surgical wound Collar bone fracture Home Medications ?Medication ?Instructions ?Recorded ?Last Taken ?Type azithromycin 500 mg tablet 500 mg PO QDAY 03/24/24 Unknown History ondansetron 4 mg disintegrating mg PO 03/24/24 Unknown History tablet apixaban 5 mg tablet (Eliquis) 5 mg PO BID #60 tabs 04/08/24 Unknown Rx famotidine 20 mg tablet (Pepcid AC) 20 mg PO DAILY PRN heartburn #30 04/08/24 Unknown Rx tabs lorazepam 1 mg tablet (Ativan) 1 mg PO TID PRN anxiety #15 tabs 04/10/24 Unknown Rx Allergy/AdvReac Type Severity Reaction Status Date / Time No Known Allergies Allergy Verified 04/10/24 21:51 Family History Mother Diabetes Kidney disease had mass, removed portion of it. Father Diabetes Cancer prostate Colon cancer 75 Grandmother Cancer stomach Surgical History History of surgical procedure History of ankle surgery S/P exploratory laparotomy History of open reduction and internal fixation (ORIF) procedure Status post right hemicolectomy H/O hernia repair Social History adopted: No household members: spouse number of children: 1 current occupational status: employed current occupation: [employer]. pets and animals: Yes pets and animals: dog(s) sexually active: Yes Smoking Status: Never smoker Electronic Cigarette Use: not used alcohol intake: never substance use type: does not use diet: lactose free caffeine: Yes (1-2) Type: carbonated beverages frequency: does not exercise seatbelt use: always do you feel safe at home: Yes ROS ROS ED Constitutional Constitutional ED: Denies chills or fever(s) Eyes Eyes: Denies change in vision ENT ENT ED: Denies sore throat Cardiovascular Cardiovascular: Denies chest pain Respiratory/Chest Respiratory/Chest: Denies cough or dyspnea Gastrointestinal Gastrointestinal: Reports abdominal pain; Denies diarrhea, nausea or vomiting Genitourinary Genitourinary ED: Denies dysuria Musculoskeletal Musculoskeletal: Denies myalgias Integumentary Denies rash Neurologic Neurologic: Denies headache(s) Psychiatric Psychiatric: Reports anxiety; Denies suicidal ideation or suicidal thoughts Hematologic/Lymphatic Hematologic/Lymphatic: Reports easy bleeding and easy bruising EXAM Physical Exam Const Vital Signs: 04/10/24 21:49 04/10/24 22:35 Temperature 96.9 F L 97.7 F L Temperature Source Temporal Pulse Rate 66 70 Respiratory Rate 17 18 Blood Pressure 131/93 H 124/78 H Blood Pressure Mean 105 93 Pulse Ox 100 98 Oxygen Delivery Method Room Air Positive well nourished and well developed General Appearance ED: well developed HEENT HEENT Narrative: Normocephalic atraumatic Eyes PERRL and EOMs intact bilaterally General Eye ED: Negative for pale conjunctiva or scleral icterus Neck supple Neck Narrative: No nuchal rigidity or meningeal signs Resp normal respiratory effort and clear to auscultation bilaterally Cardio regular rate and regular rhythm GI normal to inspection, nondistended, normoactive bowel sounds, non-tender, non-distended and no masses GI Narrative: Patient has a small nonhealing wound in the mid abdominal region consistent with his history of previous abdominal abscess requiring surgery. No surrounding soft tissue changes to suggest infection. Auscultation: normoactive bowel sounds Palpation: soft Extremity normal to inspection Neuro oriented x3, CN's II-XII intact bilaterally and no sensory deficits noted Sensorium / Orientation: alert Motor Exam: strength 5/5 throughout Psych Psych Narrative: Patient has a nervous/anxious affect without homicidal or suicidal ideation Skin no rashes or lesions noted Skin Narrative: Nonhealing wound to the abdomen as documented above MDM MDM MDM Narrative Medical decision making narrative: Patient presented to the ER slightly hypertensive but otherwise with stable vitals. He reported a long history of recurrent abdominal infections with a nonhealing wound which is led to bouts of health anxiety. He reported sensation of impending doom with the inability to control his emotions most consistent with anxiety reaction/panic attack. His physical exam does not show signs of infection and he denies any type of excessive stimulant or illicit drugs which could have led to his symptoms. He is not homicidal or suicidal and he does not require psychiatric evaluation but secondary to the breakthrough health anxiety he will be placed on a short round of medication but is otherwise safe for discharge. 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 Instructions: ED Panic Attack Prescriptions: New lorazepam [Ativan] 1 mg tablet 1 mg PO TID PRN (Reason: anxiety) Qty: 15 0RF No Action Eliquis 5 mg tablet 5 mg PO BID Qty: 60 4RF famotidine [Pepcid AC] 20 mg tablet 20 mg PO DAILY PRN (Reason: heartburn) Qty: 30 0RF azithromycin 500 mg tablet 500 mg PO QDAY ondansetron 4 mg tablet,disintegrating PO Primary Care Provider: Chelle Lemus Referrals: Chelle Lemus MD [Primary Care Provider] - Activity Restrictions/Additional Instructions: Please begin taking the prescribed medication as directed if you have breakthrough bouts of anxiety and if there is no improvement with the prescribed medication return to the ER for repeat evaluation Print Language: Niuean Disposition Disposition: Home, Self Care Discharge Date/Time: 04/10/24 22:39
[2024-04-10] MEDS: LORazepam 2 MG/ML Syringe IM (22:32)
[2024-04-10 22:35] VITALS: BP 124/78; PULSE 70; RESP 18; TEMP 36.5; O2SAT 98
== END 2024-04-10 22:39 | disposition home or self-care (01) ==
LOC: ED 22:33
PROVIDERS: Emergency Provider Emergency Medicine; PCP Internal Medicine; Visit Provider Emergency Medicine
DX: F41.1 Generalized anxiety disorder (principal); T81.89XD Other complications of procedures, not elsewhere classified, subsequent encounter; S31.109D Unspecified open wound of abdominal wall, unspecified quadrant without penetration into peritoneal cavity, subsequent encounter; Y83.8 Other surgical procedures as the cause of abnormal reaction of the patient, or of later complication, without mention of misadventure at the time of the procedure; Z79.01 Long term (current) use of anticoagulants; Z79.899 Other long term (current) drug therapy
CPT/HCPCS: 96372; 99282

== ENCOUNTER → 2024-04-24 | Outpatient (CLI) | payer BC, SELFPAY ==
[2024-04-24 11:24] LABS: ALB/GLOB Ratio 1.2 RATIO (0.9-2.4); AST(SGOT) 25 U/L (15-37); Alanine Aminotransfer ALT/SGPT 57 U/L (16-61); Albumin, Serum 4.1 g/dL (3.2-5.0); Alkaline Phosphatase 83 U/L (45-117); Anion Gap 3 (5-15); BUN 16 mg/dL (7-18); BUN/Creat Ratio 13.1 RATIO (10-20); Calcium,Total 9.4 mg/dL (8.5-10.1); Chloride 107 mmol/L (98-107); Creatinine, Serum 1.22 mg/dL (0.70-1.30); EST Glomerular Filtration Rate 69 mL/min (>60); Est Glom Filt Rate - Afr Amer 83 mL/min (>60); Globulin 3.4 g/dL (2.2-4.2); Glucose 111 mg/dL (74-106); Potassium 4.1 mmol/L (3.5-5.1); Protein, Total 7.5 g/dL (6.4-8.2); Sodium Level 139 mmol/L (136-145)
== END | disposition home or self-care (01) ==
LOC: LAB 10:36
PROVIDERS: PCP Internal Medicine; Referring Provider Surgery; Visit Provider Surgery
DX: T81.43XA Infection following a procedure, organ and space surgical site, initial encounter (principal); T81.89XD Other complications of procedures, not elsewhere classified, subsequent encounter; S31.109D Unspecified open wound of abdominal wall, unspecified quadrant without penetration into peritoneal cavity, subsequent encounter
CPT/HCPCS: 36415; 80053

== ENCOUNTER 2024-05-11 16:53 | Outpatient (RCR) | payer BC, SELFPAY | END 2024-05-11 19:00 | disposition home or self-care (01) | LOC: PT 16:53 | PROVIDERS: PCP Internal Medicine; Referring Provider Physician Assistant; Visit Provider Physician Assistant | DX: M54.9 Dorsalgia, unspecified (principal) | CPT/HCPCS: 97161 ==

== ENCOUNTER 2024-06-04 08:35 | Day surgery (SDC) | payer BC, SELFPAY ==
[2024-06-04] VITALS (10 sets, daily range): BP systolic 82–137; BP diastolic 50–87; PULSE 42–72; RESP 14–18; TEMP 36.2–36.4; O2SAT 95–100; BMI 25.7
--- NOTE | 2024-06-04 | GASB_PTH ---
PATIENT: TERRIE ALLEN LOC: EN U#:[id number] AGE/SX: 44/M ROOM: RE06/04/[address]: Dr. Trevor Hahn MD : 1980 BED: DIS: 06/04/2024 SPEC #: [id number] RECD: 06/04/24 13:11 STATUS: LISSETT MARIA DE JESUS #: [id number] DAVE: 06/04/24 00:[address]: Trevor Hahn DEPT: SURGICAL PATHOLOGY RECD BY: Usman Kevin ENTERED: 06/04/24 13:11 SP TYPE: Gastric Bx OTHR DR: Dr. Chelle Lemus MD Tissues: A - Gastric mucous membrane B - Gastric mucous membrane C - Esophageal mucous membrane Procedures: Special Stain Group I Surgery Specimen Level IV Alcian Blue/PAS (control) HEADER OPERATION: EGD with biopsies PRE-OP DIAGNOSIS: Nausea, epigastric pain TISSUE SUBMITTED: A- Antrum biopsy, B- Gastroesophageal junction biopsy, C- Abnormal mucosa of proximal esophagus biopsy MICROSCOPIC DIAGNOSIS A. Antrum, biopsy: Mild gastritis. See microscopic description and comment. B. Gastroesophageal junction, biopsy: Fragments of gastroesophageal mucosa with moderate chronic inflammation. Intestinal metaplasia (goblet cell metaplasia) not identified. See comment. C. Abnormal mucosa, proximal esophagus, biopsy: A fragment of gastric mucosa with mild chronic inflammation. Intestinal metaplasia (goblet cell metaplasia) not identified. See comment. CHEN/ 06/05/2024 COMMENT A. The results of immunohistochemistry for Helicobacter pylori will be reported separately ([id number]). B. Alcian blue/PAS stain with matched control is used in the evaluation of the specimen. The specimen predominantly consists of gastric mucosa. C. Alcian blue/PAS stain with matched control is used in the evaluation of the specimen. MICROSCOPIC DESCRIPTION Slides are reviewed. A. The specimen shows fragments of gastric mucosa with chronic inflammatory cell infiltrates in the lamina propria consisting of lymphocytes and plasma cells, consistent with mild chronic gastritis. GROSS DESCRIPTION A. Received in fixative is one container labeled with the patient's name and designated Antrum biopsy. The specimen consists of two irregular fragments of light lion soft tissue that in aggregate measure 0.4 x 0.3 x 0.1 cm. The specimen is totally submitted in one cassette. B. Received in fixative is one container labeled with the patient's name and designated GE junction biopsy. The specimen consists of multiple irregular fragments of light lion soft tissue that in aggregate measure 0.6 x 0.3 x 0.1 cm. The specimen is totally submitted in one cassette. C. Received in fixative is one container labeled with the patient's name and designated Abnormal mucosa of proximal esophagus biopsy. The specimen consists of one irregular fragment of light lion soft tissue that measures 0.3 x 0.3 x 0.1 cm. The specimen is totally submitted in one cassette. Flash 06/04/2024 TC:3 CPT:53351a6,51722h6 ADDENDUM ADDENDUM ADDENDUM ADDENDUM ADDENDUM ADDENDUM ADDENDUM 06/08/2024 09:51 ADDENDUM 06/08/2024 09:51 ADDENDUM 06/08/2024 09:51 ADDENDUM 06/08/2024 09:51 ADDENDUM 06/08/2024 09:51 C. The findings may represent ectopic gastric mucosa. Correlation with clinical, endoscopic findings and appropriate follow up are necessary. This case is discussed with Dr. Hahn on 06/08/2024 SJ/ 06/08/2024
[2024-06-04] MEDS: Lactated Ringers 1,000 ML 15 ML IV (09:01)
--- NOTE | 2024-06-04 09:23 | PCM.PRE.AN2 ---
ASA Classification* ASA Classification ASA Classification: 2 Assessment & Plan Anesthesia* Anesthesia Assessment Anesthesia Assessment: Discussed sedation and/or anesthesia options, risks, benefits, and alternatives with patient/parents/legal guardian/POA. Questions invited. The patient/parents/legal guardian/POA seems to understand and agrees to proceed with anesthesia plan. Reviewed the physical assessment, medical history, allergy history and patient home medications list prior to surgery/procedure/anesthetic and documented any changes. Performed airway and anesthesia risk assessments. Anesthesia Type Anesthesia Type: MAC (*see written pre anesthesia record for full assessment) Anesthesia Focused Assessment* Temperature: 97.5 F Pulse Rate: 72 Blood Pressure: 137/87 Respiratory Rate: 16 Pulse Ox: 100 Airway Assessment Mouth opens: >3 cm Mallampati Score: II Focused Labs Anesthesia Preop lab: CBC WBC 7.7 K/mm3 (4.4-11.0) 04/08/24 15:27 RBC 5.47 M/mm3 (4.6-6.2) 04/08/24 15:27 Hgb 15.0 g/dL (13.0-16.5) 04/08/24 15:27 Hct 45.7 % (40-54) 04/08/24 15:27 Plt Count 305 K/mm3 (150-450) 04/08/24 15:27 CHEMISTRY Potassium 4.1 mmol/L (3.5-5.1) 04/24/24 10:39 Sodium 139 mmol/L (136-145) 04/24/24 10:39 Magnesium 2.2 mg/dL (1.6-2.6) 01/30/24 06:38 Phosphorus 3.5 mg/dL (2.5-4.9) 01/30/24 06:38 BUN 16 mg/dL (7-18) 04/24/24 10:39 Creatinine 1.22 mg/dL (0.70-1.30) 04/24/24 10:39 Glucose 111 mg/dL (74-106) H 04/24/24 10:39 POC Glucose 79 mg/dL (74-106) 01/22/24 16:49 TSH 0.66 uIU/mL (0.358-3.74) 12/16/23 15:37 COAG PT 16.2 SECONDS (11.7-14.9) H 01/18/24 20:00 Pre-Assessment Diagnosis/Proposed Procedure Planned Operative Procedure(s): EGD Anesthesia History Anesthesia History - operating room specialist: Anesthesia History - operating room specialist Hx Hospitalization Yes 06/02/24 09:32 Any Problems With Anesthesia No 06/02/24 09:32 Cholinesterase deficiency No 06/02/24 09:32 You/Your Family Experience No 06/02/24 09:32 fever (hyperthermia) with Relationship Recent Exposure to Contagious No 06/04/24 08:49 Disease Does patient have nerve No 06/02/24 09:32 stimulator Patient instructed to have device shut off --Does patient have Pacemaker No 06/04/24 08:49 or ICD? When Was Last Pacemaker Check QUESTION #4 FULL TEXT: You/Your Family Experience fever (hyperthermia) with Anesthesia Last Oral Intake Last Oral intake: Last Oral Intake NPO since 00:00 06/04/24 08:49 Meds taken in AM with sips of water? Meds patient instructed to take am of surgery PONV PONV - operating room specialist: PONV - operating room specialist Female No 06/02/24 09:32 HX of Motion Sickness Yes 06/02/24 09:32 HX of N/V After Surgery Yes 06/02/24 09:32 Non-Smoker Yes 06/02/24 09:32 Duration of Surgery greater No 06/02/24 09:32 than 60 minutes Number of Risk Factors 3 06/02/24 09:32 PONV Score Moderate Risk 06/02/24 09:32 Height & Weight Height & Weight: Anesthesia: Height & Weight Height 6 ft 3 in 06/04/24 08:49 Weight: 93.44 kg 06/04/24 08:49 Body Mass Index (BMI) 25.7 06/04/24 08:49 Respiratory Assessment Respiratory Assessment - operating room specialist: Respiratory Tract Infection Hx - operating room specialist Hx Respiratory Tract Infection No 06/02/24 09:32 STOP Sleep Apnea STOP Sleep Apnea - operating room specialist: STOP Sleep Apnea - operating room specialist Hx Hypertension No 06/02/24 09:32 Hx Sleep Apnea No 06/02/24 09:32 CPAP BIPAP Do you snore loudly (louder No 06/02/24 09:32 than talking or can be heard Do you often feel tired/ No 06/02/24 09:32 fatigued/ sleepy during daytime? Has anyone observed you stop No 06/02/24 09:32 breathing during sleep? STOP Results Negative 06/02/24 09:32 QUESTION #5 FULL TEXT : Do you snore loudly (louder than talking or can be heard through closed doors)? 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 Specify any problems Hx of Preganancy in last 3 N/A 06/02/24 09:32 Months Nurse Filling Out Transfusion VCHRISTIN 06/02/24 09:32 & Questions: Date: 06/02/24 06/02/24 09:32 Time: 09:33 06/02/24 09:32 Patient unable to answer at this time (ie. confused, unrespo /Reproduction History /Reproductive History - operating room specialist: /Reproductive Hx- operating room specialist Hx Now Gestational Age (in weeks): EDC: Hx Hx Para Hx Section SAB Active Medications Active Medications: Current Medications Generic Name Dose Route Start Last Admin Trade Name Shaqq PRN Reason Stop Dose Admin Lactated Ringer's 1,000 mls @ 15 mls/hr 06/04/24 08:45 06/04/24 09:01 IV 15 mls/hr .Q48H ELIZABETH Administration PFSH Medical History Difficulty swallowing History of IBS Gastric reflux Anterior abdomen avulsion History of abdominal abscess Nonhealing surgical wound Superior mesenteric vein thrombosis Sepsis without acute organ dysfunction Collar bone fracture COVID-19 Home Medications ?Medication ?Instructions ?Recorded ?Last Taken ?Type azithromycin 500 mg tablet 500 mg PO QDAY 03/24/24 Unknown History apixaban 5 mg tablet (Eliquis) 5 mg PO BID #60 tabs 04/08/24 06/01/24 Rx tevin (Zingiber officinalis) 250 500 mg PO DAILY 05/25/24 Unknown History mg capsule omeprazole 40 mg capsule,delayed 40 mg PO DAILY #30 caps 05/28/24 Unknown Rx release tramadol 50 mg tablet 50 mg PO DAILY PRN pain 06/02/24 Unknown History Allergy/AdvReac Type Severity Reaction Status Date / Time No Known Allergies Allergy Verified 06/04/24 08:47 Family History Mother Diabetes Kidney disease had mass, removed portion of it. Father Diabetes Cancer prostate Colon cancer 75 Grandmother Cancer stomach Surgical History History of surgical procedure History of ankle surgery History of open reduction and internal fixation (ORIF) procedure Status post right hemicolectomy S/P exploratory laparotomy H/O hernia repair Social History adopted: No household members: spouse number of children: 1 current occupational status: employed current occupation: [employer]. pets and animals: Yes pets and animals: dog(s) sexually active: Yes Smoking Status: Never smoker Electronic Cigarette Use: not used alcohol intake: never substance use type: does not use diet: lactose free caffeine: Yes (1-2) Type: carbonated beverages frequency: does not exercise seatbelt use: always do you feel safe at home: Yes Review of Systems (Anesthesia) ROS Narrative System reviewed and no additional complaints, except as documented.
--- NOTE | 2024-06-04 09:30 | IMM_PTH ---
PATIENT: TERRIE ALLEN LOC: EN U#:[id number] AGE/SX: 44/M ROOM: RE06/04/[address]: Dr. Trevor Hahn MD : 1980 BED: DIS: 06/04/2024 SPEC #: [id number] RECD: 06/04/24 13:20 STATUS: LISSETT RESissy #: [id number] DAVE: 06/04/24 09:[address]: Trevor Hahn DEPT: IMMUNOHISTOCHEMISTRY RECD BY: Luis A Rahman ENTERED: 06/04/24 13:21 SP TYPE: IMMUNO OTHR DR: Dr. Chelle Lemus MD Tissues: A - Gastric mucous membrane Procedures: H Pylori (initial) PHYSICIAN & INSTITUTION [place] [id number] SPECIMEN INFORMATION: Tissue Source: A- Antrum biopsy Clinical Info: Nausea, epigastric pain Specimen Number: [id number] CPT code: 90870 METHODOLOGY: Deparaffinized sections of prefer/formalin-fixed tissue or PAP/DQ stained slides are incubated with monoclonal/polyclonal antibodies/oligonucleotide probes. Localization is made via biotin free immunoperoxidase method. Appropriate controls are performed and reacted as expected. Results on target cell population are indicated in the following table: RESULTS: ANTIBODY / CLONE RESULT Block A H Pylori (polyclonal) negative These tests were developed and their performance characteristics determined by [facility]. They may not have been cleared or approved by the U.S. Food and Drug Administration. The FDA has determined that such clearance or approval is not necessary. The above immunohistochemical/dualISH markers are ordered and reviewed by the Pathologist. INTERPRETATION: A. Antrum, biopsy: Negative for Helicobacter pylori organisms. ROSA/ 06/05/2024
--- NOTE | 2024-06-04 09:56 | PCM.HP.BLA ---
History and Physical Date of Admission: 06/04/24 I have examined the patient and the H&P has been reviewed. There are no clinical changes since date of exam.Mr. Ragland shares that overall he is better, however, he continues to have nausea and dizziness each morning. He is eagerly looking forward to going back to work, however, he has learned that he and his colleagues have been furloughed so he is starting to investigate his options. Plans for today's procedure as well as post procedure reporting of biopsy results were discussed. Questions were answered from both him and his . mL proceed to endoscopy suite for EGD to better evaluate the cause of his morning time nausea and upper abdominal discomfort.
--- NOTE | 2024-06-04 10:31 | OP.EGD_ITS ---
Patient Name: Hesham Ragland Procedure Date: 06/04/2024 9:40 AM Date of : 1980 Age: 44 Procedure: Upper GI endoscopy Indications: Epigastric abdominal pain, Nausea Providers: Trevor Hahn MD Referring MD: Chelle Lemus Md Medicines: See the Anesthesia note for documentation of the administered medications Patient Profile: Patient has symptoms of chronic epigastric abdominal pain and chronic nausea. Complications: No immediate complications. Estimated blood loss: Minimal. Procedure: Pre-Anesthesia Assessment: - The heart rate, respiratory rate, oxygen saturations, blood pressure, adequacy of pulmonary ventilation, and response to care were monitored throughout the procedure. After obtaining informed consent, the endoscope was passed under direct vision. Throughout the procedure, the patient's blood pressure, pulse, and oxygen saturations were monitored continuously. The Endoscope was introduced through the mouth, and advanced to the second part of duodenum. The upper GI endoscopy was accomplished without difficulty. The patient tolerated the procedure well. Scope In: 10:05:17 AM Scope Out: 10:21:33 AM Total Procedure Duration Time 0 hours 16 minutes 16 seconds Findings: No gross lesions were noted in the duodenal bulb, in the first portion of the duodenum and in the second portion of the duodenum. No biopsies or other specimens were collected for this exam. Localized minimal inflammation characterized by erythema was found in the gastric antrum. Biopsies were taken with a cold forceps for Helicobacter pylori testing. Estimated blood loss was minimal. The Z-line was irregular and was found 43 cm from the incisors. Biopsies were taken with a cold forceps for histology. Estimated blood loss was minimal. Localized mild mucosal changes characterized by altered texture and an abnormal appearance suspicious for Heredia's were found in the upper third of the esophagus. Biopsies were taken with a cold forceps for histology. Estimated blood loss was minimal. The exam was otherwise without abnormality. Impression: - No gross lesions in the duodenal bulb, in the first portion of the duodenum and in the second portion of the duodenum. No specimens collected. - Gastritis. Biopsied. - Z-line irregular, 43 cm from the incisors. Biopsied. - Texture changed, abnormal (rule out Heredia's esophagus) mucosa in the esophagus. Biopsied. - The examination was otherwise normal. Recommendation: - Discharge patient to home (via wheelchair). - Resume previous diet today. - Continue present medications. - Await pathology results. - No aspirin, ibuprofen, naproxen, or other non-steroidal anti-inflammatory drugs for 2 days after biopsy. - Telephone my office for pathology results in 1 week. Procedure Code(s): --- Professional --- 87827, Esophagogastroduodenoscopy, flexible, transoral; with biopsy, single or multiple Diagnosis Code(s): --- Professional --- K29.70, Gastritis, unspecified, without bleeding K22.89, Other specified disease of esophagus R10.13, Epigastric pain R11.0, Nausea CPT copyright 2021 [employer]. All rights reserved. The codes documented in this report are preliminary and upon rehabilitation psychologist review may be revised to meet current compliance requirements. Trevor Hahn MD 06/04/2024 10:30:29 AM This report has been signed electronically. Number of Addenda: 0 Note Initiated On: 06/04/2024 9:40 AM
--- NOTE | 2024-06-04 10:31 | OP.CCLET_ITS ---
06/04/2024 Chelle Lemus Md Re : Upper GI endoscopy procedure for Hesham Ragland Dear Allan This procedure was performed on May. My impressions and recommendations are as follows: Impressions : - No gross lesions in the duodenal bulb, in the first portion of the duodenum and in the second portion of the duodenum. No specimens collected. - Gastritis. Biopsied. - Z-line irregular, 43 cm from the incisors. Biopsied. - Texture changed, abnormal (rule out Heredia's esophagus) mucosa in the esophagus. Biopsied. - The examination was otherwise normal. Recommendations : - Discharge patient to home (via wheelchair). - Resume previous diet today. - Continue present medications. - Await pathology results. - No aspirin, ibuprofen, naproxen, or other non-steroidal anti-inflammatory drugs for 2 days after biopsy. - Telephone my office for pathology results in 1 week. My findings are described in the full procedure note, which is enclosed. If I can be of further assistance, please feel free to contact me at Doctor phone number(s): , Work: . Sincerely, Trevor Hahn MD 06/04/2024 10:30:29 AM This report has been signed electronically.
--- NOTE | 2024-06-04 10:32 | PCM.POST.ANE ---
Anesthesia: Postop Eval I Current Vital Signs Temperature: 97.2 F Pulse Rate: 44 Blood Pressure: 116/70 Respiratory Rate: 14 Pulse Ox: 97 Oxygen Delivery Method: Room Air Assessment Airway patent: Yes Spontaneous unlabored respirations: Yes Mental status: Asleep nausea: No Vomiting: No Anesthesia Complication: No Fluid Hydration Crystalloid volume administer (ml): 600 Total IV fluid infused: 600 Progress Note Anesthesia document: Postop Eval 1 completed: Yes
--- NOTE | 2024-06-04 11:48 | PCM.POSTANE2 ---
Anesthesia Postop Eval I Sum Postop Eval Completion status Anesthesia document: Postop Eval 1 completed: Yes Anesthesia Postop Eval I Summary Anesthesia Postop Eval I Summary: Anesthesia Postop Eval I: Assessment Summary Airway patent Yes 06/04/24 10:33 [email or web address] Spontaneous unlabored Yes 06/04/24 10:33 [email or web address] respirations Mental status Asleep 06/04/24 10:33 [email or web address] nausea No 06/04/24 10:33 [email or web address] Vomiting No 06/04/24 10:33 [email or web address] Anesthesia Postop Eval I: Fluid Summary Crystalloid volume administer 600 06/04/24 10:33 [email or web address] (ml) Colloids volume administered ( ml) Blood Product volume administered (ml) Total IV fluid infused 600 06/04/24 10:33 [email or web address] Anesthesia Postop Eval I: Summary Notes Anesthesia Complication No 06/04/24 10:33 [email or web address] Anesthesia Complication Comment: Post-operative progress note Anesthesia: Postop Eval II Evaluation Mental status: Awake Pain Level: 0 nausea: No Vomiting: No
== END 2024-06-04 11:13 | disposition home or self-care (01) ==
LOC: EN 08:36 → AC 08:37
PROVIDERS: PCP Internal Medicine; Referring Provider Internal Medicine; Visit Provider Surgery
PROC: 0DJ08ZZ Inspection of Upper Intestinal Tract, Via Natural or Artificial Opening Endoscopic (ICD-10-PCS; CPT 43235; principal; 2024-06-04 09:25)
DX: K29.50 Unspecified chronic gastritis without bleeding (principal); K21.00 Gastro-esophageal reflux disease with esophagitis, without bleeding; Z79.899 Other long term (current) drug therapy; Z79.01 Long term (current) use of anticoagulants; Z87.19 Personal history of other diseases of the digestive system
CPT/HCPCS: 43239; 88305; 88312; 88342; J7120; J2405

== ENCOUNTER → 2024-06-10 | Outpatient (CLI) | payer BC, SELFPAY ==
--- NOTE | 2024-06-10 14:35 | RAD_ITS ---
STUDY: X-RAY - CERVICAL SPINE REASON FOR EXAM: Male, 44 years old. CERVICALGIA TECHNIQUE: 5 view(s) of the cervical spine were obtained. COMPARISON: None FINDINGS: Normal anterior atlantoaxial articulation. Normal odontoid process. Normal cervical lordosis. Normal vertebral bodies and endplates. Normal disc space heights. Normal visualized intervertebral neuroforamina. The soft tissue structures are unremarkable. RAD/Cerv Spine 4 or 5 Views IMPRESSION: Normal x-ray examination of the visualized cervical spine. Electronically Signed: Chidi Carvajal MD at 13:10 EDT ,
== END | disposition home or self-care (01) ==
LOC: RAD 14:27
PROVIDERS: PCP Internal Medicine; Referring Provider Chiropractor Orthopedic; Visit Provider Chiropractor Orthopedic
DX: M54.2 Cervicalgia (principal); M99.01 Segmental and somatic dysfunction of cervical region
CPT/HCPCS: 72050

== ENCOUNTER → 2024-09-11 | Outpatient (CLI) | payer BC, SELFPAY ==
--- NOTE | 2024-09-11 15:33 | MRI_ITS ---
HISTORY: dizzy, vision changes, headache. TECHNIQUE: Multiplanar and multisequence MR images of the brain were obtained without contrast. 280 images. COMPARISON: None. FINDINGS: BRAIN PARENCHYMA: Normal morphology and position of the midline structures. No significant signal abnormality in the brain parenchyma. No abnormal focus of restricted diffusion. No acute intracranial hemorrhage identified. CSF SPACES: Cerebral ventricles, cortical sulci, and other extra-axial CSF spaces within normal limits in size for age. No significant midline shift or other mass effect.No extra-axial fluid collection. VASCULAR SYSTEM: Major intracranial flow voids are maintained. PARANASAL SINUSES AND MASTOID AIR CELLS: Small maxillary sinus mucous retention cysts. ORBITS: Symmetric contents. MRI/Brain without Contrast IMPRESSION: Unremarkable examination. No evidence for significant signal abnormality in the brain. Electronically Signed: Mari Baxter MD at 11:12 EST ,
== END | disposition home or self-care (01) ==
LOC: MRI 15:31
PROVIDERS: PCP Internal Medicine; Referring Provider Internal Medicine; Visit Provider Internal Medicine
DX: H53.9 Unspecified visual disturbance (principal); R42 Dizziness and giddiness; R51.9 Headache, unspecified
CPT/HCPCS: 70551

== ENCOUNTER → 2024-10-24 | Outpatient (CLI) | payer BC, SELFPAY ==
--- NOTE | 2024-10-24 08:54 | MRI_ITS ---
STUDY: MRI LUMBAR SPINE WITHOUT CONTRAST REASON FOR EXAM: Male, 44 years old. back pain TECHNIQUE: Standardized fat and water weighted pulse sequences were obtained in the sagittal and axial planes. COMPARISON: X-ray 04/08/2024 FINDINGS: T12-L1: Normal endplates. Normal disc height, hydration and morphology. Normal bilateral facet joints. Normal central canal and bilateral lateral recesses. Normal bilateral intervertebral neural foramina. Normal lumbar lordosis. There is no substantial scoliosis. Normal conus medullaris that terminates at the T12. L1-2: Normal endplates. Normal disc height, hydration and morphology. Normal bilateral facet joints. Normal central canal and bilateral lateral recesses. Normal bilateral intervertebral neural foramina. L2-3: Mild broad disc protrusion produces mild spinal stenosis and mild bilateral neural foraminal stenosis. L3-4: Mild bilateral facet hypertrophy and moderate ligament flavum hypertrophy. Mild broad disc protrusion produces mild spinal stenosis and mild bilateral neural foraminal stenosis. L4-5: Normal endplates. Normal disc height, hydration and morphology. Normal bilateral facet joints. Normal central canal and bilateral lateral recesses. Normal bilateral intervertebral neural foramina. L5-S1: 2 mm of anterolisthesis of L5 on S1 with a mild broad disc protrusion produces mild spinal stenosis and mild bilateral neural foraminal stenosis. Normal visualized sacral ala. Normal visualized paraspinous soft tissue structures. MRI/Spine Lumbar (Routine) IMPRESSION: Multilevel degenerative changes, as described above. Electronically Signed: Chidi Carvajal MD at 18:00 EST ,
== END | disposition home or self-care (01) ==
LOC: MRI 08:51
PROVIDERS: PCP Internal Medicine; Referring Provider Internal Medicine; Visit Provider Internal Medicine
DX: M54.89 Other dorsalgia (principal)
CPT/HCPCS: 72148

== ENCOUNTER → 2024-11-10 | Outpatient (CLI) | payer BC, SELFPAY ==
--- NOTE | 2024-11-10 14:35 | RAD_ITS ---
EXAM: XR THORACIC SPINE, 2 VIEWS CLINICAL INDICATION: THORACIC PAIN TECHNIQUE: Frontal and lateral views of the thoracic spine. COMPARISON: No relevant prior studies available. FINDINGS: VERTEBRAE: Unremarkable. Preserved vertebral body height. No fracture. No spondylolisthesis. Preservation of the normal thoracic kyphosis. No significant facet arthropathy. DISC SPACES: Unremarkable. Disc spaces are maintained. RAD/Thoracic Spine 2 Views IMPRESSION: No evidence of thoracic spinal fracture or spondylolisthesis. Electronically Signed: Sinan Raymond MD at 17:49 EST ,
== END | disposition home or self-care (01) ==
LOC: RAD 14:16
PROVIDERS: PCP Internal Medicine; Referring Provider Anesthesiology; Visit Provider Anesthesiology
DX: M54.6 Pain in thoracic spine (principal)
CPT/HCPCS: 72070

== ENCOUNTER → 2024-11-16 | Outpatient (CLI) | payer BC, SELFPAY ==
[2024-11-16 16:57] LABS: Absolute Lymphocyte Count 1.94 X10^3/uL (0.83-4.51); Absolute Neutrophil Count 4.2 X10^3/uL (2.0-7.7); Basophil# 0.06 X10^3/uL; Basophil% 0.8 % (0-1); Eosinophil# 0.25 X10^3/uL; Eosinophils% 3.5 % (0-5); Hemoglobin 14.8 g/dL (13.0-16.5); Lymphocyte # 1.94 X10^3/ul (0.83-4.51); Mean Corp Hgb Conc 32.9 g/dL (32-36); Mean Corpuscular Hgb 28.6 pg (27.0-32.0); Mean Corpuscular Volume 86.9 fL (80-94); Mean Platelet Vol. 10.7 fl (6.2-12.0); Monocyte# 0.76 X10^3/uL; Monocyte% 10.6 % (0-10); NRBC Flagged by Analyzer 0 % (0-5); Neutrophil # 4.15 X10^3/uL (2.7-7.7); Neutrophil % 57.7 % (47-70); Platelet Count 265 K/mm3 (150-450); RBC Distribution Width SD 38.4 fl (35.1-43.9); Red Blood Count 5.18 M/mm3 (4.6-6.2); White Blood Count 7.2 K/mm3 (4.4-11.0)
[2024-11-16 18:21] LABS: ALB/GLOB Ratio 1.3 RATIO (0.9-2.4); AST(SGOT) 22 U/L (15-37); Alanine Aminotransfer ALT/SGPT 44 U/L (16-61); Albumin, Serum 4.2 g/dL (3.2-5.0); Alkaline Phosphatase 86 U/L (45-117); Anion Gap 4 (5-15); BUN 18 mg/dL (7-18); BUN/Creat Ratio 16.4 RATIO (10-20); Calcium,Total 9.5 mg/dL (8.5-10.1); Chloride 106 mmol/L (98-107); EST Glomerular Filtration Rate 77 mL/min (>60); Est Glom Filt Rate - Afr Amer 93 mL/min (>60); Globulin 3.3 g/dL (2.2-4.2); Glucose 105 mg/dL (74-106); Potassium 4.2 mmol/L (3.5-5.1); Protein, Total 7.5 g/dL (6.4-8.2); Sodium Level 140 mmol/L (136-145)
[2024-11-16 19:22] LABS: Vitamin D,25 Hydroxy 27.9 ng/mL
== END | disposition home or self-care (01) ==
LOC: BIMLAB 15:48
PROVIDERS: PCP Internal Medicine; Referring Provider Internal Medicine; Visit Provider Internal Medicine
DX: R10.9 Unspecified abdominal pain (principal); G89.29 Other chronic pain
CPT/HCPCS: 36415; 80053; 82306; 85025

== ENCOUNTER → 2024-11-23 | Outpatient (CLI) | payer BC, SELFPAY ==
[2024-11-24 15:08] LABS: Fats, Neutral Normal (.); Fats, Total Normal (.)
== END | disposition home or self-care (01) ==
LOC: LABSPEC 08:13
PROVIDERS: PCP Internal Medicine; Referring Provider Internal Medicine; Visit Provider Internal Medicine
DX: R10.9 Unspecified abdominal pain (principal); G89.29 Other chronic pain
CPT/HCPCS: 82705

== ENCOUNTER → 2024-12-04 | Outpatient (CLI) | payer BC, SELFPAY ==
--- NOTE | 2024-12-04 12:04 | NM_ITS ---
EXAM: GASTRIC EMPTYING STUDY CLINICAL HISTORY: Abdominal pain. COMPARISON: None. TECHNIQUE: The patient ingested a combination of 1.1 mCi of technetium sulfur colloid and oatmeal. FINDINGS: There is normal gastric emptying. The T1 half is 32 minutes. NM/Gastric Emptying Study IMPRESSION: Normal gastric emptying examination. Reading Location: [id number]
== END | disposition home or self-care (01) ==
LOC: NM 12:01
PROVIDERS: PCP Internal Medicine; Referring Provider Internal Medicine; Visit Provider Internal Medicine
DX: R10.9 Unspecified abdominal pain (principal); G89.29 Other chronic pain
CPT/HCPCS: 78264; A9541

== ENCOUNTER → 2024-12-07 | Outpatient (CLI) | payer BC, SELFPAY ==
--- NOTE | 2024-12-07 14:57 | CT_ITS ---
EXAM: ABDOMEN/PELVIS WITH CONTRAST CLINICAL HISTORY: History of intussusception 11 months ago. Abdominal pain. Nausea. COMPARISON: 04/03/2024. TECHNIQUE: Helical CT images of the abdomen and pelvis were performed utilizing routine protocol with intravenous contrast material. Multiplanar reformations were obtained. Dose reduction techniques were used including intermediate exposure control (AEC),iterative reconstruction technique, and/or mA and/or KV dose adjustments based on patient's size. FINDINGS: Mild bibasilar atelectasis. No obvious acute abnormality of the spleen, pancreas, or adrenal glands. There are multiple subcentimeter too small to characterize hepatic low-density lesions. The gallbladder is contracted and contains questionable gallstones. No acute obstructive urinary collecting system calculus. No urinary bladder wall thickening. No hydronephrosis. No acute bowel obstruction. No pneumoperitoneum. Postsurgical changes noted at the right colon. No CT evidence of acute colonic diverticulitis. No CT evidence of acute appendicitis. No lymphadenopathy. No significant free fluid in the abdomen and pelvis. Mild right hydrocele. No CT evidence of acute osseous abnormality. CT/Abdomen/Pelvis WITH Contrast IMPRESSION: No intussusception identified. The gallbladder is contracted and contains questionable gallstones. Mild right hydrocele. Reading Location: [id number]
== END | disposition home or self-care (01) ==
LOC: CT 14:50
PROVIDERS: PCP Internal Medicine; Referring Provider Internal Medicine; Visit Provider Internal Medicine
DX: R10.9 Unspecified abdominal pain (principal); G89.29 Other chronic pain
CPT/HCPCS: 74177; Q9967

== ENCOUNTER → 2024-12-10 | Outpatient (CLI) | payer BC, SELFPAY ==
[2024-12-10 11:44] LABS: Erythrocyte Sedimentation Rate 1 mm/hr (0-20)
[2024-12-10 12:10] LABS: Vitamin B12 606 pg/mL (211-911)
[2024-12-10 12:26] LABS: CRP < 2.90 mg/L (0.0-3.0); Free T3 2.9 pg/mL (2.18-3.98); LDH 167 U/L (87-241); T4 Free Direct 1.09 ng/dL (0.76-1.46)
[2024-12-13 14:08] LABS: Anti-Centromere B Ab <0.2 AI (0.0-0.9); Anti-Chromatin <0.2 AI (0.0-0.9); Anti-Jo <0.2 AI (0.0-0.9); Anti-Scleroderma-70 AB <0.2 AI (0.0-0.9); Anti-dsDNA Ab <1 IU/mL (0-9); Beef <0.10 kU/L (Class 0); Chocolate <0.10 kU/L (Class 0); Codfish <0.10 kU/L (Class 0); Corn <0.10 kU/L (Class 0); Egg, Whole <0.10 kU/L (Class 0); Milk (Cow) <0.10 kU/L (Class 0); Mussels <0.10 kU/L (Class 0); Peanut <0.10 kU/L (Class 0); Pork <0.10 kU/L (Class 0); RNP Ab <0.2 AI (0.0-0.9); SJOGREN'S Anti-SS-A test < 0.2 AI (0.0-0.9); SJOGREN'S Anti-SS-B test < 0.2 AI (0.0-0.9); Salmon <0.10 kU/L (Class 0); Shrimp 0.15 kU/L (Class 0/I); Smith Ab <0.2 AI (0.0-0.9); Soybean <0.10 kU/L (Class 0); Tuna <0.10 kU/L (Class 0); Wheat 7.23 kU/L (Class IV)
[2024-12-21 15:07] LABS: ACCA 18 units (0-90); ALCA 2 units (0-60); AMCA 19 units (0-100); Albumin 4.4 g/dL (2.9-4.4); Alpha-1-Globulins 0.2 g/dL (0.0-0.4); Alpha-2-Globulins 0.5 g/dL (0.4-1.0); Anti-Cardiolipin Ab, IgA, Qn < 9 APL U/mL (0-11); Anti-Cardiolipin Ab, IgG, Qn < 9 GPL U/mL (0-14); Anti-Cardiolipin Ab, IgM, Qn < 9 MPL U/mL (0-12); Anti-Thrombin 3 AG, Immunol 120 % (72-124); Antithrombin 3 Function 118 % (75-135); Complement C3 130 mg/dL (82-167); Complement CH50 60 U/mL (>41); Cytoplasmic Ab (C-ANCA) <1:20 titer (Neg:<1:20); Dilute Prothrombin Time (dPT) 34.9 sec (0.0-47.6); Dilute Russell Viper Venom 35.2 sec (0.0-47.0); Endomysial Antibody IgA Negative (Negative); Gamma Globulin 1.2 g/dL (0.4-1.8); IgG, Quant 1289 mg/dL (603-1613); Immunoglobulin A 209 mg/dL (90-386); Immunoglobulin E 97 IU/mL (6-495); Immunoglobulin G, Subclass 1 735 mg/dL (248-810); Immunoglobulin G, Subclass 2 243 mg/dL (130-555); Immunoglobulin G, Subclass 3 47 mg/dL (15-102); Immunoglobulin G, Subclass 4 117 mg/dL (2-96); Immunoglobulin M 84 mg/dL (20-172); Interpretation Comment: (.); PROEL- TOTAL PROTEIN 7.3 g/dL (6.0-8.5); PTT-LA 35.7 sec (0.0-43.5); Perinuclear Ab (P-ANCA) <1:20 titer (Neg:<1:20); Protein C, Functional 124 % (73-180); Protein S, Free 93 % (61-136); Protein S, Funtional 78 % (63-140); Protein S, Total 65 % (60-150); Thrombin Time 18.5 sec (0.0-23.0); dPT Confirm Ratio 0.85 Ratio (0.00-1.34); gASCA 17 units (0-50); t-Transglutaminase IgA <2 U/mL (0-3)
== END | disposition home or self-care (01) ==
LOC: LAB 11:01
PROVIDERS: PCP Internal Medicine; Referring Provider Internal Medicine Gastroenterology; Visit Provider Internal Medicine Gastroenterology
DX: R19.5 Other fecal abnormalities (principal)
CPT/HCPCS: 36415; 81240; 81241; 82607; 82746; 82784; 82785; 82787; 83516; 83615; 84165; 84439; 84443; 84481; 85300; 85301; 85303; 85305; 85306; 85652; 86003; 86005; 86036; 86037; 86140; 86147; 86160; 86162; 86225; 86235; 86255; 86334; 86671

== ENCOUNTER → 2025-01-07 | Outpatient (CLI) | payer BC, SELFPAY ==
--- NOTE | 2025-01-07 08:48 | NM_ITS ---
PROCEDURE: HEPATOBILLIARY IMG W/PHARM INT REASON FOR EXAM: NAUSEA TECHNIQUE: Intravenous Choletec with planar imaging of the abdomen. 2 mcg Kinevac intravenously approximately 60 minutes after the radiopharmaceutical with additional anterior imaging and a region of interest drawn around the gallbladder to calculate a time-activity curve. RADIOPHARMACEUTICAL: 5.8 mCi of technetium labeled mebrofenin COMPARISON: Comparison is made with prior CT scan of the abdomen and pelvis dated December 07, 2024. FINDINGS: There is good uptake of the radiopharmaceutical by the liver. Normal gallbladder visualization with the gallbladder identified by 30 minutes. Gallbladder Ejection Fraction: 60 % (Normal is >35%) NM/Hepatobilliary Img w/Pharm Int IMPRESSION: NORMAL HIDA SCAN AND GALLBLADDER EJECTION FRACTION. Reading Location: [id number]
== END | disposition home or self-care (01) ==
LOC: NM 08:46
PROVIDERS: PCP Internal Medicine; Referring Provider Internal Medicine Gastroenterology; Visit Provider Internal Medicine Gastroenterology
DX: R11.0 Nausea (principal); M54.9 Dorsalgia, unspecified
CPT/HCPCS: 78227; A9537; J2805

== ENCOUNTER → 2025-05-17 | Outpatient (CLI) | payer BC, SELFPAY ==
[2025-05-17 11:57] LABS: Free T3 3.5 pg/mL (2.18-3.98)
[2025-05-17 14:25] LABS: LDH 243 U/L (87-241)
[2025-05-20 09:08] LABS: Immunoglobulin A 183 mg/dL (90-386); Immunoglobulin G 1101 mg/dL (603-1613); Immunoglobulin G, Subclass 1 589 mg/dL (248-810); Immunoglobulin G, Subclass 2 230 mg/dL (130-555); Immunoglobulin G, Subclass 3 33 mg/dL (15-102); Immunoglobulin G, Subclass 4 94 mg/dL (2-96); Immunoglobulin M 79 mg/dL (20-172)
[2025-05-20 11:08] LABS: CRP, High Sensitivity 0.31 mg/L (0.00-3.00); Egg, White <0.10 kU/L (Class 0); SCALLOP <0.10 kU/L (Class 0); SESAME SEED <0.10 kU/L (Class 0); Walnut, (Food) <0.10 kU/L (Class 0)
== END | disposition home or self-care (01) ==
LOC: LAB 10:05
PROVIDERS: PCP Internal Medicine; Referring Provider Internal Medicine Gastroenterology; Visit Provider Internal Medicine Gastroenterology
DX: K21.00 Gastro-esophageal reflux disease with esophagitis, without bleeding (principal); R19.7 Diarrhea, unspecified
CPT/HCPCS: 36415; 82784; 82785; 82787; 83036; 83615; 84439; 84443; 84481; 85652; 86003; 86141

== ENCOUNTER → 2025-05-18 | Outpatient (CLI) | payer BC, SELFPAY ==
--- NOTE | 2025-05-18 16:50 | RAD_ITS ---
PROCEDURE: ABDOMEN SINGLE VIEW 05/18/2025 REASON FOR EXAM: GERD TECHNIQUE: ABDOMEN SINGLE VIEW COMPARISON: CT abdomen and pelvis 12/07/2019 FINDINGS: Bowel gas pattern is normal. No evidence of bowel obstruction. There is a rectangular density measuring 2.3 cm in the right lower abdomen, projecting over the right L3 transverse process. Surgical clips in the right lower quadrant of the abdomen. Osseous structures are unremarkable. RAD/Abdomen Single View IMPRESSION: No radiographic evidence of bowel obstruction. Rectangular structure in the ri t lower abdomen may represent the dissolvable pill that patient reported to the technologist. Reading Location: [id number]
== END | disposition home or self-care (01) ==
PROVIDERS: PCP Internal Medicine; Referring Provider Internal Medicine Gastroenterology; Visit Provider Internal Medicine Gastroenterology
DX: K21.00 Gastro-esophageal reflux disease with esophagitis, without bleeding (principal)
CPT/HCPCS: 74018

== ENCOUNTER → 2025-05-20 | Outpatient (CLI) | payer BC, SELFPAY ==
--- NOTE | 2025-05-20 17:18 | RAD_ITS ---
EXAM: XR Abdomen, 1 View CLINICAL INDICATION: ABDOMINAL PAIN TECHNIQUE: Frontal supine view of the abdomen/pelvis. COMPARISON: No relevant prior studies available. FINDINGS: GASTROINTESTINAL TRACT: Fecal retention in the colon consistent with constipation. No dilation. BONES/JOINTS: Unremarkable. No acute fracture. RAD/Abdomen Single View IMPRESSION: Fecal retention in the colon consistent with constipation. Reading Location: [id number]
--- OUTSIDE RECORDS SUMMARY | 2025-05-20 23:14 | XMS RPT_ITS | CCD ---
Author Organization [facility] Care Team Providers Care Travel Accommodations Rater Name Role Phone Kiera Diana Rajan Unavailable Dr. Tony Saleh Attending Dr. Tony Kaur Referring Dr. Diana Miller Primary Care Unavail able Dr. Tony Saleh Admitting Dr. Marcellus Yoder Primary Care Provider Dr. Kevin York Emergency Provider Dr. Ricco García Admit Provider Dr. Ricco García Attending Provider Dr. Ricco García Other Provider ALLEN Barajas Attending Provider Dr. Nader Miller Emergency Provider [phone] Care Physician, No Primary Primary Care Provider Unavailable Dr. Veronica Garner Attending Provider Dr. Veronica Garner Admit Provider Dr. Veronica Garner Other Provider Dr. Db Barbosa Attending Provider Dr. Emily Aquino Other Provider Unavailable Primary Care Provider Unavailjohan Corona III, MD, Donald M Unavailable Diana Foster MD Unavailable Dr. Sancho Oakes Primary Care Provider AGUSTINA CHRISTENSEN Attending Unavailable PROVIDER, UNKNOWN Referring Unavailable PROVIDER, UNKNOWN Attending Unavailable PROVIDER, UNKNOWN Admitting Unavailable SANCHO AGUILERA Admitting Unavailable JOVANI, RICCO Referring Unavailable AGUSTINA CHRISTENSEN Attending Unavailable BULMARO MOREIRA Referring Unavailable PAPOURAS, CLYDE HENRIQUEZ Attending Unavail able PAPOURAS, CLYDE HENRIQUEZ Admitting Unavail able DUMFORD III, KEVIN M Referring Unavailabl e DUMFORD III, KEVIN M Referring Unavailabl e DUMFORD III, KEVIN M Referring Unavailabl e DUMFORD III, KEVIN M Referring Unavailabl e DUMFORD III, KEVIN M Referring Unavailabl e DUMFORD III, KEVIN M Referring Unavailabl e DUMFORD III, KEVIN M Referring Unavailabl e DUMFORD III, KEVIN M Referring Unavailabl e DUMFORD III, KEVIN M Attending Unavailabl e DUMFORD III, KEVIN M Attending Unavailabl e DUMFORD III, KEVIN M Attending Unavailabl e Nick ESCALERA, Dr. Echavarria Attending Provider [phone] Dr. Geronimo Lemus MD Primary Care Provider [phone] Dr. Geronimo Lemus MD Referring Provider Dr. Geronimo Lemus MD Attending Provider Dr. Alin Issa MD Attending Provider Dr. Alin Issa MD Referring Provider Dr. Lee Robles DO Attending Provider Dr. Lee Robles DO Referring Provider Unavailable Primary Care Provider UnavailGeronimo Howell MD Primary Care Provider [phone] MARIA R REES Attending Unavailable GERONIMO LEMUS Primary Care Unavailable GERONIMO LEMUS Primary Care Unavailable MARIA R REES Attending Unavailable GERONIMO LEMUS Primary Care Unavailable MARIA R REES Attending Unavailable Dr. Geronimo Lemus MD Primary Care Provider [phone] Dr. Geronimo Lemus MD Attending Provider Sabine MD, Dr. Geronimo Referring Provider Celia Powers Attending Provider [phone] Sabine, Geronimo Referring Unavailable Ricco García Attending Unavailable Isaura, Geronimo Primary Care Unavailable Isaura, Geronimo Primary Care Unavailable Isaura, Geronimo Referring Unavailable Jericho Romero Attending Unavailable Isaura, Geronimo Primary Care Unavailable Isaura, Geronimo Referring Unavailable Sabine, Geronimo Attending Unavailable Isaura, Geronimo Primary Care Unavailable Sabine, Geronimo Referring Unavailable Isaura, Geronimo Attending Unavailable Isaura, Geronimo Primary Care Unavailable Isaura, Geronimo Referring Unavailable Isaura, Geronimo Attending Unavailable Sabine, Geronimo Primary Care Unavailable Sabine, Geronimo Referring Unavailable Sabine, Geronimo Attending Unavailable Friend, Lee Referring Unavailable Friend, Lee Attending Unavailable Isaura, Geronimo Primary Care Unavailable Friend, Lee Referring Unavailable Friend, Lee Attending Unavailable Isaura, Geronimo Primary Care Unavailable Friend, Lee Attending Unavailable Isaura, Geronimo Primary Care Unavailable Sabine, Geronimo Referring Unavailable Sabine, Geronimo Primary Care Unavailable EMILY MITCHELL Referring Unavailable EMILY MITCHELL Attending Unavailable Sabine, Geronimo Referring Unavailable Sabine, Geronimo Primary Care Unavailable Ni Alexander Attending Unavailable Isaura, Geronimo Referring Unavailable Roof Memo ROGERS Attending Unavailable Sabine, Geronimo Primary Care Unavailable Isaura, Geronimo Referring Unavailable Celia Coffey Attending Unavailable Isaura, Geronimo Primary Care Unavailable Isaura, Geronimo Referring Unavailable Friend, Lee Attending Unavailable Isaura, Geronimo Primary Care Unavailable Ricco García Attending Unavailable Ricco García Consulting Unavailable Sabine, Geronimo Primary Care Unavailable Isaura, Geronimo Referring Unavailable Isaura, Geronimo Referring Unavailable Isaura, Geronimo Primary Care Unavailable Celia Coffey Attending Unavailable Friend, Lee Attending Unavailable Sabine, Geronimo Primary Care Unavailable Sabine, Geronimo Referring Unavailable Isaura, Geronimo Primary Care Unavailable Isaura, Geronimo Referring Unavailable Isaura, Geronimo Attending Unavailable Sabine, Geronimo Primary Care Unavailable Isaura, Geronimo Referring Unavailable Isaura, Geronimo Attending Unavailable Sabine, Geronimo Primary Care Unavailable Sabine, Geronimo Referring Unavailable Isaura, Geronimo Attending Unavailable Isaura, Geronimo Primary Care Unavailable Sabine, Geronimo Referring Unavailable Sabine, Geronimo Attending Unavailable Sabine, Geronimo Primary Care Unavailable Alin Issa Referring Unavailable Alin Issa Attending Unavailable Isaura ESCALERA, Dr. Corbett Primary Care Provider [phone] Dr. Geronimo Lemus MD Referring Provider Dr. Lee Robles DO Attending Provider FLORIN LERNER Attending Unavailable MARKUS GEORGE Referring Unavailable DIANA SILVA Primary Care Unavailable MARKUS GEORGE Referring Unavailable DIANA SILVA Primary Care Unavailable MARKUS GEORGE Referring Unavailable DIANA SILVA DOROTEO Primary Care Unavailable Allergies Allergy Classification Reported Allergen(s) Allergy Type Date of Onset Reaction(s) Facility (1 source) ALLERGIES NOT ON FILE; Translations: [ALLERGIES NOT ON FILE] Propensity to adverse reactions (disorder) [facility] 2 Repository Medications Current Medications Medication Drug Class(es) Dates Sig (Normalized) Sig (Original) acetaminophen 325 mg oral tablet (20 sources) Start: 02-06-2024 acetaminophen (TYLENOL) 325 MG tablet Take 3 (three) tablets (975 mg total) by mouth . 02/06/2024 Active Start: 01-16-2024 End: 03-17-2024 take 1-10 tablets by mouth every six hours as needed for pain Acetaminophen 500 mg Tablet Discontinued 500 mg PO EVERY 6 HOURS NEEDED as needed for Pain 1-10 Or Fever 0 0 January 16, 2024 12:00am March 17, 2024 9:27am Comment on above: Take 3 tablets by mo uth four times daily. ascorbic acid 500 mg oral tablet (3 sources) Vitamin C take 1 tablet by mouth once daily ascorbic acid, vitamin C, (ascorbic acid with eduardo hips) 500 MG tablet Take 1 (one) tablet (500 mg total) by mouth daily . Active azithromycin 500 mg oral tablet (20 sources) Macrolide Antimicrobial Start: 05-25-20 End: 10-22-20 take 12.5 mL by mouth once daily azithromycin (ZITHROMAX) 200 mg/5 mL suspension Take 12.5 mL by mouth once daily. 375 mL 4 05/25/2024 06/08/2024 Discontinued (Other) Start: 03-20-2024 End: 08-21-2024 take 1 tablet by mouth once daily Azithromycin 500 mg tablet Discontinued 500 mg PO daily March 24, 2024 12:00am August 13, 2024 3:17pm ergocalciferol 1.25 mg oral capsule (3 sources) Provitamin D2 Compound take 1 capsule by mouth every week ergocalciferol (Vitamin D2) 1,250 mcg (50,000 unit) capsule Take 1 (one) capsule (50,000 Units total) by mouth once a week . Active meloxicam 7.5 mg oral tablet (16 sources) Nonsteroidal Anti-inflammatory Drug Start: 05-05-20 take 1 tablet by mouth once daily Meloxicam 7.5 mg tablet Active 7.5 mg PO daily 90 0 May 05, 2025 4:48pm Start: 08-15-2024 End: 03-17-2025 take 1 tablet by mouth once daily Meloxicam 7.5 mg tablet Discontinued 7.5 mg PO daily 90 0 February 09, 2025 9:54am March 17, 2025 3:26pm [place] (Nk) (2 sources) Start: 01-11-2024 [place] (Nk) Active January 11, 2024 12:00am ondansetron 4 mg oral tablet (20 sources) Serotonin-3 Receptor Antagonist Start: 05-17-2025 take 1 tablet by mouth every eight hours Ondansetron Hcl 4 mg tablet Active 4 mg PO Q8H May 17, 2025 12:00am Start: 05-05-2025 End: 05-15-2025 take 1 tablet by mouth every eight hours Ondansetron 4 mg tablet,disintegrating Discontinued 4 mg PO Q8H 30 10 0 May 05, 2025 4:48pm May 14, 2025 12:00am May 15, 2025 12:11am Start: 03-23-2025 End: 04-02-2025 take 1 tablet by mouth every eight hours Ondansetron 4 mg tablet,disintegrating Discontinued 4 mg PO Q8H 30 10 0 March 23, 2025 9:01am April 01, 2025 12:00am April 02, 2025 12:10am Start: 01-28-2025 End: 02-07-2025 take 1 tablet by mouth every eight hours Ondansetron 4 mg tablet,disintegrating Discontinued 4 mg PO Q8H 30 10 0 January 28, 2025 2:31pm February 06, 2025 12:00am February 07, 2025 12:05am Start: 01-12-2025 End: 01-28-2025 take 1 tablet by mouth every eight hours Ondansetron Hcl 4 mg tablet Discontinued 4 mg PO Q8H January 12, 2025 12:00am January 28, 2025 2:31pm Start: 03-23-2024 End: 12-27-2024 take 1 tablet by mouth every eight hours Ondansetron 4 mg tablet,disintegrating Discontinued 4 mg PO Q8H 30 10 0 December 17, 2024 10:58am December 26, 2024 1:00am December 27, 2024 1:13am Start: 02-06-2024 take 1 tablet by natalie th every eight hours as needed for nausea ondansetron (ZOFRAN) 4 mg tablet Indications: Postprocedural intraabdominal abscess (HCC) Take 1 tablet by mouth every 8 hours as needed for nausea/vomiting. 6 tablet 02/06/2024 Active Start: 09-10-2021 End: 01-10-2024 take 1 tablet by mouth every eight hours as needed for nausea Ondansetron 4 mg tablet,disintegrating Discontinued 4 mg PO EVERY 8 HOURS NEEDED as needed for Nausea 20 September 10, 2021 1:00am January 10, 2024 11:35pm Comment on above: Take 1 tablet by natalie th every 8 hours as needed for nausea/vomiting. pantoprazole 40 mg delayed release oral tablet (13 sources) Proton Pump Inhibitor Start: 05-12-20 take 1 tablet by mouth once daily Pantoprazole 40 mg tablet,delayed release (DR/EC) Active 40 mg PO daily 90 0 May 12, 2025 12:58pm take one tablet once daily Start: 10-23-2024 End: 03-17-2025 take 1 tablet by mouth once daily Pantoprazole 40 mg tablet,delayed release (DR/EC) Discontinued 40 mg PO daily 90 0 February 11, 2025 7:36am March 17, 2025 3:26pm take one tablet once daily predniSONE 20 mg oral tablet (13 sources) Start: 04-21-2025 take 1 tablet by mouth once daily Prednisone 20 mg tablet Active 20 mg PO daily 30 0 April 21, 2025 12:00am Start: 01-12-2025 End: 03-17-2025 take 1 tablet by mouth once daily Prednisone 20 mg tablet Discontinued 20 mg PO daily 30 February 09, 2025 11:18am February 24, 2025 3:11pm prochlorperazine 10 mg oral tablet (6 sources) Phenothiazine Start: 03-17-2025 take 5 mg by mouth once daily Prochlorperazine Maleate 10 mg tablet Active 5 mg PO daily March 17, 2025 3:27pm Start: 02-24-2025 End: 03-17-2025 take 1 tablet by mouth once daily Prochlorperazine Maleate 10 mg tablet Discontinued 10 mg PO daily February 24, 2025 12:00am March 17, 2025 3:28pm Start: 01-18-2025 End: 02-17-2025 take 1 tablet by mouth twice daily Prochlorperazine Maleate 10 mg tablet Discontinued 10 mg PO TWICE A DAY 60 30 0 January 18, 2025 12:00am February 16, 2025 12:00am February 17, 2025 12:07am voriconazole 200 mg oral tablet (7 sources) Azole Antifungal Start: 02-05-2024 End: 02-20-2024 take 1 tablet by mouth twice daily voriconazole (VFEND) 200 mg tablet Take 1 tablet by mouth two times a day for 14 days. 28 tablet 0 02/06/2024 02/20/2024 Active Comment on above: Take 1 tablet by natalie th two times a day for 14 days. Completed/Discontinued Medications Medication Drug Class(es) Dates Sig (Normalized) Sig (Original) amoxicillin 500 mg oral capsule (4 sources) Penicillin-class Antibacterial Start: 03-03-2024 End: 03-10-2024 take 2 capsules by mouth three times daily Amoxicillin 500 mg capsule Discontinued 1000 mg PO THREE TIMES A DAY March 03, 2024 12:00am March 10, 2024 9:30am Start: 02-27-2024 End: 03-06-2024 take 2 tablets by mouth three times daily Amoxicillin 500 mg tablet Take 2 tablets by mouth three times a day. 180 tablet 5 02/27/2024 03/06/2024 Discontinued (Side Effects) amoxicillin 875 mg / clavulanate 125 mg oral tablet (9 sources) Penicillin-class Antibacterial Start: 01-16-2024 End: 03-03-2024 Amoxicillin-Pot Clavulanate 875-125 mg Tablet Discontinued 1 {tbl} PO TWICE A DAY 18 9 January 16, 2024 12:00am March 03, 2024 3:13pm atb Start: 01-16-2024 take 1 tablet by natalie th twice daily Amoxicillin-Pot Clavulanate Active 1 TABLET PO TWICE A DAY 18 January 16, 2024 12:00am apixaban 5 mg oral tablet (20 sources) Factor Xa Inhibitor Start: 03-04-2024 End: 08-13-2024 take 1 tablet by mouth twice daily Apixaban (Eliquis Dvt-Pe Treat 30d Start) 5 mg (74 tabs) tablets,dose pack Discontinued 5 mg PO TWICE A DAY 30 0 April 02, 2024 11:00am May 01, 2024 12:00am April 08, 2024 2:45pm blood clot Take one tablet by mouth twice daily Start: 02-25-2024 End: 03-04-2024 Apixaban (Apixaban 5 Mg (74 Tabs) Tablets In A Dose Pack) 5 mg (74 tabs) tablets,dose pack Discontinued 5 mg PO Q12H February 25, 2024 12:00am March 04, 2024 3:00pm blood clot Start: 02-04-2024 End: 03-05-2024 take 2 tablets by mouth twice daily, then take 1 tablet by mouth twice daily apixaban (ELIQUIS DVT-PE TREAT 30D START) 5 mg (74 tabs) Take 2 tablets (10 mg) by mouth twice daily for 7 days. Then take 1 tablet (5 mg) by mouth twice daily for 23 days 74 tablet 0 02/04/2024 03/05/2024 Active Comment on above: Take 2 tablets (10 m g) by mouth twice daily for 7 days. Then take 1 tablet (5 mg) by mouth twice daily for 23 days benzonatate 100 mg oral capsule (12 sources) Non-narcotic Antitussive Start: 09-10-20 End: 01-10-20 take 1 capsule by mouth three times daily as needed for cough Benzonatate 100 mg capsule Discontinued 100 mg PO THREE TIMES A DAY as needed for cough 20 September 10, 2021 11:43pm January 10, 2024 11:35pm celecoxib 200 mg oral capsule (9 sources) Nonsteroidal Anti-inflammatory Drug Start: 01-16-20 End: 03-17-20 take 1 capsule by mouth once daily Celecoxib 200 mg Capsule Discontinued 200 mg PO DAILY 7 7 January 16, 2024 12:00am March 17, 2024 9:57am stephen escalera doxycycline monohydrate 100 mg oral tablet (6 sources) Tetracycline-class Drug Start: 03-06-20 End: 03-24-20 take 1 tablet by mouth twice daily Doxycycline Monohydrate 100 mg tablet Discontinued 100 mg PO TWICE A DAY March 10, 2024 12:00am March 24, 2024 11:00am enteric contrast (will be provided with radiology test) (1 source) Start: 07-10-20 End: 07-11-20 enteric contrast (will be provided with radiology test) For CT ABD/PEL W IVCON Routine order Administer, As Directed One Time Only, via Oral, Rectal, both Oral and Rectal, Enteric Tube, Stoma or Indwelling Catheter, Enteric Contrast as designated per enteric contrast guidelines 1 Each 07/10/2024 07/11/2024 escitalopram 5 mg oral tablet (3 sources) Serotonin Reuptake Inhibitor Start: 04-14-20 End: 04-16-20 take 1 tablet by mouth once daily Escitalopram Oxalate (Lexapro) 5 mg tablet Discontinued 5 mg PO DAILY 30 1 April 14, 2024 12:00am April 16, 2024 4:56pm esomeprazole 20 mg delayed release oral capsule (3 sources) Proton Pump Inhibitor Start: 09-28-20 End: 10-23-20 take 1 capsule by mouth once daily Esomeprazole Magnesium (Nexium 24hr) 20 mg capsule,delayed release(DR/EC) Discontinued 20 mg PO daily September 28, 2024 1:00am October 23, 2024 8:22am famotidine 20 mg oral tablet (20 sources) Histamine-2 Receptor Antagonist Start: 04-08-20 End: 05-26-20 take 1 tablet by mouth once daily before mealtime Famotidine (Pepcid Ac) 20 mg tablet Discontinued 20 mg PO DAILY 30 April 28, 2024 12:43pm May 26, 2024 2:24pm heartburn take 1 tablet by natalie th every twelve hours as needed famotidine (PEPCID) 20 mg tablet Take 20 mg by mouth two times a day as needed. Active tevin root 250 mg oral capsule (3 sources) Start: 05-25-2024 End: 09-28-2024 take 1 capsule by mouth once daily Tevin (Zingiber Officinalis) 250 mg capsule Discontinued 500 mg PO DAILY May 25, 2024 12:00am September 28, 2024 2:42pm iv contrast (will be provided with radiology test) (1 source) Start: 07-10-2024 End: 07-11-2024 iv contrast (will be provided with radiology test) CT ABD/PEL -Inject, intravenously, once for 1 dose.No IV access, insert saline lock prior to the beginning of sedation, infusion, injection of imaging exam. Discontinue saline lock post exam. If Pt. has a central line or IVAD, may access for administration according to line specific nursing protocol. Once exam is complete flush line and de-access according to line specific nursing protocol in the CT contrast administration guidelines link. 1 Each 07/10/2024 07/11/2024 levoFLOXacin 750 mg oral tablet (8 sources) Quinolone Antimicrobial Start: 01-17-2024 End: 02-25-2024 take 1 tablet by mouth once daily Levofloxacin 750 mg tablet Discontinued 750 mg PO DAILY 14 January 17, 2024 12:00am February 25, 2024 2:01pm atb Lidocaine (2 sources) Antiarrhythmic, Amide Local Anesthetic Start: 02-23-2025 End: 02-23-2025 lidocaine 20 mg/mL (2 %) injection 6 mL Start: 02-23-2025 End: 02-23-2025 6 mL, Infiltration, Once, On Sat02/23/25 at 1200, For 1 dose LORazepam 1 mg oral tablet (20 sources) Benzodiazepine Start: 04-10-2024 End: 04-28-2024 take 1 tablet by mouth three times daily as needed for anxiety Lorazepam (Ativan) 1 mg tablet Discontinued 1 mg PO THREE TIMES A DAY as needed for anxiety 15 0 April 10, 2024 12:00am April 28, 2024 10:15am Anxious reaction Generalized anxiety disorder take 2 tablets by mo uth three times daily as needed LORazepam (ATIVAN) 0.5 MG tablet Take 2 (two) tablets (1 mg total) by mouth 3 (three) times a day as needed . Active take 1 mg by mouth e very eight hours as needed LORazepam (ATIVAN) 0.5 mg Take 1 mg by mouth three times a day as needed. Active meclizine hydrochloride 25 mg oral tablet (3 sources) Antiemetic Start: 05-24-2024 End: 05-26-2024 take 1 tablet by mouth twice daily as needed for dizziness Meclizine 25 mg tablet Discontinued 25 mg PO TWICE A DAY as needed for dizziness 20 10 0 May 24, 2024 12:00am June 02, 2024 12:00am May 26, 2024 12:09pm No Reported Medications (3 sources) No Reported Medications Quantity: 0 Refills: 0 Ordered: 20-Apr-2022 DO Active omeprazole 40 mg delayed release oral capsule (6 sources) Proton Pump Inhibitor Start: 05-28-2024 End: 09-28-2024 take 1 capsule by mouth once daily Omeprazole 40 mg capsule,delayed release(DR/EC) Discontinued 40 mg PO DAILY 90 2 July 20, 2024 2:59pm September 28, 2024 2:43pm oxyCODONE hydrochloride 5 mg oral tablet (9 sources) Opioid Agonist Start: 01-16-2024 End: 02-25-2024 take 1 tablet by mouth every six hours as needed for pain Oxycodone 5 mg Tablet Discontinued 5 mg PO EVERY 6 HOURS NEEDED as needed for Pain Score 4-10 6 2 0 January 16, 2024 February 25, 2024 2:01pm Ileocolic intussusception Intussusception penicillin v potassium 500 mg oral tablet (5 sources) Start: 03-18-2024 End: 04-15-2024 take 1 tablet by mouth four times daily Penicillin V Potassium 500 mg tablet Discontinued 500 mg PO 4 TIMES DAILY March 24, 2024 12:00am March 24, 2024 11:00am promethazine hydrochloride 12.5 mg oral tablet (2 sources) Phenothiazine Start: 02-24-2025 End: 03-17-2025 take 1 tablet by mouth three times daily as needed for nausea and vomiting Promethazine 12.5 mg tablet Discontinued 12.5 mg PO THREE TIMES A DAY as needed for nausea and vomiting 30 2 February 24, 2025 12:00am March 17, 2025 3:27pm Scopolamine Base 1 mg over 3 days patch 3 day (3 sources) Start: 01-12-2025 End: 01-18-2025 Scopolamine Base 1 mg over 3 days patch 3 day Discontinued 1 NMA TD Every 3 Days as needed for nausea 10 January 12, 2025 12:00am January 18, 2025 10:55am Start: 01-12-2025 End: 01-18-2025 Scopolamine Base 1 mg over 3 days patch 3 day Discontinued 1 NMA TD Every 3 Days as needed for nausea January 12, 2025 12:00am January 18, 2025 10:55am Start: 01-12-2025 Scopolamine Ba se 1 mg over 3 days patch 3 day Active 1 NMA TD Every 3 Days as needed for nausea January 12, 2025 12:00am sertraline 25 mg oral tablet (3 sources) Serotonin Reuptake Inhibitor Start: 04-16-2024 End: 04-28-2024 take 1 tablet by mouth once daily Sertraline (Zoloft) 25 mg tablet Discontinued 25 mg PO DAILY 30 1 April 16, 2024 12:00am April 28, 2024 10:15am sucralfate 1000 mg oral tablet (12 sources) Aluminum Complex Start: 11-16-2024 End: 01-12-2025 take 1 tablet by mouth twice daily Sucralfate (Carafate) 1 gram tablet Discontinued 1 g PO TWICE A DAY 180 0 January 06, 2025 3:33pm January 12, 2025 8:32am traMADol hydrochloride 50 mg oral tablet (20 sources) Opioid Agonist Start: 05-26-2024 End: 08-13-2024 take 1 tablet by mouth once daily as needed for pain Tramadol 50 mg tablet Discontinued 50 mg PO DAILY as needed for pain 14 0 July 08, 2024 11:46am August 13, 2024 3:22pm Start: 04-28-2024 End: 05-05-2024 take 1 tablet by mouth twice daily as needed for pain Tramadol 50 mg tablet Discontinued 50 mg PO TWICE A DAY as needed for pain 14 7 0 April 28, 2024 12:44pm May 04, 2024 12:00am May 05, 2024 12:04am Start: 04-20-2024 End: 04-24-2024 take 1 tablet by mouth every eight hours as needed for pain Tramadol 50 mg tablet Discontinued 50 mg PO Q8H as needed for pain 14 4 0 April 20, 2024 12:00am April 23, 2024 12:00am April 24, 2024 12:05am Start: 02-25-2024 End: 03-17-2024 take 1 tablet by mouth every eight hours as needed for pain Tramadol 50 mg tablet Discontinued 50 mg PO Q8H as needed for pain February 25, 2024 12:00am March 17, 2024 9:57am Start: 02-06-2024 End: 02-13-2024 take 1 tablet by mouth every eight hours as needed for pain traMADol (ULTRAM) 50 mg tablet Indications: Postprocedural intraabdominal abscess , Alteration in skin integrity related to surgical incision Take 1 tablet by mouth every 8 hours as needed for pain for up to 7 days. 20 tablet 0 02/06/2024 02/13/2024 Comment on above: Take 1 tablet by natalie th every 8 hours as needed for pain for up to 7 days. Vonoprazan (Voquezna) 10 mg tablet (2 sources) Start: 03-10-2025 End: 05-12-2025 take 1 tablet by mouth once daily Vonoprazan (Voquezna) 10 mg tablet Discontinued 10 mg PO daily 24 01March 10, 2025 12:00am May 12, 2025 12:59pm Start: 03-10-2025 take 1 tablet by natalie th once daily Vonoprazan (Voquezna) 10 mg tablet Active 10 mg PO daily March 10, 2025 12:00am Problems Active Problems Problem Classification Problem Date Documented Da te Episodic/Chronic Acquired foot deformities (1 source) Hammer toe; Translations: [Other hammer toe(s) (acquired), left foot] 02-09-2025 Chronic Anxiety disorders (5 sources) Anxiety; Translations: [Anxiety disorder, unspecified] Onset: 4 05-06-2024 Chronic Complications of surgical procedures or medical care (20 sources) Deep incisional surgical site infection; Translations: [Infection following a procedure, deep incisional surgical site, initial encounter] Onset: 4 01-15-2024 Episodic Conditions associated with dizziness or vertigo (7 sources) Vertigo; Translations: [Dizziness and giddiness] Onset: 4 05-26-2024 Episodic Diseases of white blood cells (20 sources) Leukocytosis; Translations: [Elevated white blood cell count, unspecified] Onset: Resolved: 4 02-03-2024 Chronic Comment on above: Patient's prior leuk ocytosis appears resolved Esophageal disorders (6 sources) Gastroesophageal reflux disease; Translations: [Gastro-esophageal reflux disease without esophagitis] 04-28-2024 Chronic Intestinal obstruction without hernia (20 sources) Ileocolic intussusception; Translations: [Intussusception] 01-10-2024 Episodic Miscellaneous mental health disorders (1 source) Anxiety about body function or health; Translations: [Other symptoms and signs involving emotional state] 11-16-2024 Episodic Nausea and vomiting (7 sources) Nausea; Translations: [Nausea] Onset: 5 05-26-2024 Episodic Nutritional deficiencies (20 sources) Moderate protein energy malnutrition; Translations: [Moderate protein-calorie malnutrition] Onset: 4 01-31-2024 Chronic Open wounds of head; neck; and trunk (20 sources) Open wound of abdomen; Translations: [Unspecified open wound of abdominal wall, unspecified quadrant without penetration into peritoneal cavity, initial encounter] Onset: 4 01-31-2024 Episodic Other aftercare (2 sources) 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 status; 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] 03-18-2024 Episodic Other aftercare (19 sources) Long-term current use of anticoagulant; Translations: [FCI (current) use of anticoagulants] Onset: 4 03-22-2024 Episodic Other connective tissue disease (2 sources) Pain of toe of left foot; Translations: [Pain in left toe(s)] 02-23-2025 Episodic Other disorders of stomach and duodenum (1 source) Indigestion; Translations: [Functional dyspepsia] 11-16-2024 Episodic Other gastrointestinal disorders (20 sources) Irritable bowel syndrome; Translations: [Irritable bowel syndrome without diarrhea] Onset: 6 04-11-2006 Chronic Other gastrointestinal disorders (1 source) Diarrhea of presumed infectious origin; Translations: [Diarrhea, unspecified] 03-20-2024 Episodic Other gastrointestinal disorders (1 source) Other ascites; Translations: [Intraabdominal fluid collection] Onset: Episodic Other gastrointestinal disorders (7 sources) Loose stool; Translations: [Other fecal abnormalities] 04-13-2024 Episodic Comment on above: Patient recommended increase of fiber. Recommending 25 g of daily fiber. I have discussed the intake of dietary fiber as well as supplementation. Patient provides a bottle of a supplement he has already obtained which contains psyllium husk. This seems to be a reasonable option to begin supplementation, but I have counseled Mr. Allen that he may also do so exclusively without some of the additional supplements that are contained in the 1 provided. A handout instructing patients on how to count their daily fiber was provided. Other hematologic conditions (1 source) ESR raised; Translations: [Elevated erythrocyte sedimentation rate] 09-11-2024 Episodic Other hematologic conditions (1 source) Elevated erythrocyte sedimentation rate; Translations: [ESR raised] Onset: 4 Episodic Other nervous system disorders (1 source) Other chronic pain; Translations: [Other chronic pain] Onset: 5 Chronic Other nervous system disorders (2 sources) Other abnormalities of gait and mobility; Translations: [Other abnormalities of gait and mobility] Onset: 5 Episodic Other nutritional; endocrine; and metabolic disorders (3 sources) Gilbert's syndrome; 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] 05-26-2024 Chronic Other nutritional; endocrine; and metabolic disorders (3 sources) Hyperbilirubinemia; Translations: [Other disorders of bilirubin metabolism] 04-28-2024 Chronic Other nutritional; endocrine; and metabolic disorders (12 sources) Overweight in adulthood with body mass index of 25 or more but less than 30; Translations: [Body mass index (BMI) 26.0-26.9, adult] 09-08-2021 Episodic Other nutritional; endocrine; and metabolic disorders (2 sources) Body mass index (BMI) 26.0-26.9, adult; Translations: [Body Mass Index 26.0-26.9, adult] 02-25-2024 Episodic Other skin disorders (3 sources) Ingrowing nail; Translations: [Ingrowing nail] 02-09-2025 Episodic Other skin disorders (2 sources) Dystrophia unguium; Translations: [Nail dystrophy] 02-09-2025 Episodic Peripheral and visceral atherosclerosis (20 sources) Superior mesenteric vein thrombosis ; Translations: [Acute infarction of intestine, part and extent unspecified] Onset: Resolved: 4 01-18-2024 Episodic Residual codes; unclassified (8 sources) Other specified postprocedural states; Translations: [Other postprocedural status] 01-18-2024 Episodic Residual codes; unclassified (6 sources) History of partial resection of colon; Translations: [Acquired absence of other specified parts of digestive tract] 02-21-2024 Episodic Comment on above: Patient's status pos t hand-assisted right hemicolectomy 01/11/2024 by me. Patient ultimately found to have a large (7 cm) inflammatory polyp. Course complicated by postoperative abscess (and apparently anastomotic leak) Residual codes; unclassified (5 sources) H/O: Disorder; Translations: [Personal history of other specified conditions] 02-25-2024 Episodic Comment on above: Patient has no ongoi ng evidence of abscess clinically speaking. It is clear that he was being treated for a probable anastomotic leak. This is interesting since patient's CT imaging here did not show any evidence of an anastomotic leak. It is also apparent that this leak sealed and patient has done well since drain pull 19 February. Residual codes; unclassified (5 sources) History of operation on musculoskeletal system; Translations: [Other specified postprocedural states] 02-25-2024 Episodic Residual codes; unclassified (2 sources) Personal history of other specified conditions; Translations: [Personal history of other specified diseases] 02-25-2024 Episodic Residual codes; unclassified (2 sources) Acquired absence of other specified parts of digestive tract; Translations: [Other postprocedural status] 02-25-2024 Episodic Septicemia (except in labor) (13 sources) Sepsis without acute organ dysfunction; Translations: [Sepsis, unspecified organism] 01-18-2024 Episodic Skin and subcutaneous tissue infections (1 source) Cutaneous abscess, unspecified; Translations: [Abscess] Onset: Episodic Spondylosis; intervertebral disc disorders; other back problems (7 sources) Backache; Translations: [Dorsalgia, unspecified] Onset: 04-28-2024 Episodic Viral infection (20 sources) Disease caused by 2019-nCoV; Translations: [COVID-19] 09-08-2021 Episodic Past or Other Problems Problem Classification Problem Date Documented Da te Episodic/Chronic Abdominal hernia (7 sources) Inguinal hernia; Translations: [Inguinal hernia, without mention of obstruction or gangrene, unilateral or unspecified (not specified as recurrent)] Onset: 05-03-2022 Episodic Abdominal pain (20 sources) Abdominal pain; Translations: [Unspecified abdominal pain] Onset: 12-27-2005 12-27-2005 Episodic Acute and unspecified renal failure (20 sources) Acute renal failure syndrome; Translations: [Acute kidney failure, unspecified] Onset: 02-01-2024 Resolved: 02-06-2024 02-01-2024 Episodic Allergic reactions (20 sources) Eczema; Translations: [Dermatitis, unspecified] Onset: 11-21-2009 11-21-2009 Episodic Bacterial infection; unspecified site (20 sources) Actinomycotic infection; Translations: [Actinomycosis, unspecified] Onset: 01-31-2024 01-31-2024 Episodic Blindness and vision defects (1 source) Unspecified visual disturbance; Translations: [Unspecified visual disturbance] Onset: 10-07-2024 Episodic Nonspecific chest pain (20 sources) Chest wall pain; Translations: [Other chest pain] Onset: 02-01-2024 Resolved: 02-06-2024 02-01-2024 Episodic Other aftercare (1 source) 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; Translations: [Encounter for long-term (current) use of antibiotics] Onset: 04-13-2024 Episodic Other and unspecified benign neoplasm (1 source) Benign lipomatous neoplasm of spermatic cord; Translations: [Benign lipomatous neoplasm of spermatic cord] Onset: 05-03-2022 Episodic Other disorders of stomach and duodenum (20 sources) Disorder of function of stomach; Translations: [Other diseases of stomach and duodenum] Onset: 04-11-2006 04-11-2006 Episodic Other gastrointestinal disorders (20 sources) Intra-abdominal collection; Translations: [Other ascites] Onset: 01-31-2024 01-31-2024 Episodic Other gastrointestinal disorders (16 sources) Diarrhea due to drug; Translations: [Toxic gastroenteritis and colitis] Onset: 03-22-2024 03-22-2024 Episodic Other gastrointestinal disorders (1 source) Other fecal abnormalities; Translations: [Other fecal abnormalities] Onset: 12-24-2024 Episodic Other injuries and conditions due to external causes (20 sources) Motion sickness; Translations: [Motion sickness, initial encounter] Onset: 11-21-2009 11-21-2009 Episodic Other skin disorders (20 sources) Impaired skin integrity; Translations: [Unspecified skin changes] Onset: 02-03-2024 02-03-2024 Episodic Peritonitis and intestinal abscess (20 sources) Abscess of peritoneum; Translations: [Peritoneal abscess] Onset: 03-21-2024 02-21-2024 Episodic Phlebitis; thrombophlebitis and thromboembolism (20 sources) Thrombosis; Translations: [Acute embolism and thrombosis of unspecified vein] Onset: 01-31-2024 01-31-2024 Episodic Pleurisy; pneumothorax; pulmonary collapse (20 sources) Pleurisy; Translations: [Pleurisy] Onset: 02-01-2024 Resolved: 02-06-2024 02-01-2024 Episodic Sprains and strains (20 sources) Sprain of ligament of finger; Translations: [Unspecified sprain of unspecified finger, initial encounter] Onset: 11-21-2009 11-21-2009 Episodic Unclassified (1 source) Post-op Onset: 03-02-2025 Results Test Name Value Interpretation Reference Range Facility Gastroenterology Visit Repor ton 03-17-2025 Gastroenterology Visit Report [facility] Gastroenterology [address] [place] [address] OFFICE VISIT Date of Service: 03/17/25 MR#: [id number] Acct: [id number] Name: TERRIE ALLEN Rep #: [id number] : 1980 Provider: TRISTEN Han Age/Sex: 44/M [place] [facility] [place] Status: Signed Intake Vital Signs 11/16/24 14:34 Height 6 ft 3 in Intake Visit Reasons: 3 wk fu Chief Complaint: nausea Allergies No Known Allergies Allergy (Verified 11/16/24 14:29) Medications ???Medication ???Instructions ???Recorded ???Confirmed ???Type vonoprazan 10 mg tablet (Voquezna) 10 mg PO QDAY #30 tabs 03/10/25 Rx prochlorperazine maleate 10 mg 5 mg PO QDAY 03/17/25 03/17/25 His tory tablet Nurse's Note: OV 03/17/25 Pt here for f/u and reports having diarrhea since taking Doxycycline. Pt finished the course of Doxycycline a week ago but continues to have diarrhea. Pt is continuing Voquezna, and prochlorperazine daily. [facility] Medical History Difficulty swallowing History of IBS Gastric reflux Anterior abdomen avulsion History of abdominal abscess Nonhealing surgical wound Superior mesenteric vein thrombosis Sepsis without acute organ dysfunction Collar bone fracture COVID-19 Surgical History History of surgical procedure History of ankle surgery History of open reduction and internal fixation (ORIF) procedure Status post right hemicolectomy S/P exploratory laparotomy H/O hernia repair Family History Mother Diabetes Kidney disease had mass, removed portion of it. Father Diabetes Cancer prostate Colon cancer 75 Grandmother Cancer stomach Social History adopted: No household members: spouse number of children: 1 current occupational status: employed current occupation: [employer]. pets and animals: Yes pets and animals: dog(s) sexually active: Yes Smoking Status: Never smoker Electronic Cigarette Use: not used alcohol intake: never substance use type: does not use diet: lactose free caffeine: Yes (1-2) Type: carbonated beverages frequency: does not exercise seatbelt use: always do you feel safe at home: Yes HPI HPI Chief Complaint: nausea Details: TERRIE ALLEN, is a 44 M who presents to the office today for f/u. abd/pelvis CT 6.05.20 Status post right hemicolectomy with postsurgical changes and improvement of the previously seen thick-walled fluid collection in the right lower quadrant. No new abnormality is seen EGD with Dr García 8.8.24 No gross lesions in the duodenal bulb, in the first portion of the duodenum and in the second portion of the duodenum. No specimens collected. Gastritis. Biopsied. Z-line irregular, 43 cm from the incisors. Biopsied. Texture changed, abnormal (rule out Heredia's esophagus) mucosa in the esophagus. Biopsied. The examination was otherwise normal. BGI established in Nov 2024 with hx of intussusception (december 2023) s/p emergent right hemicolectomy. Post op pt developed sepsis.. Transferred to [place] for LUZ drain for an abscess. Since then he has been having general malaise, decreased appetite, abd pain and nausea. GET 2.7.25 normal 32 minutes abd/pelvis 2.10.25 The gallbladder is contracted and contains questionable gallstones. Mild right hydrocele. HIDA 3.13.25 normal Last OV 3.18.25 Pt having increased nausea and continued right pain. taking Zofran daily. Discontinuing sucralfate. Eating a bland diet. Start 25 g of fiber daily, scopolamine patch and prednisone 20 mg daily for one month. OV 4.30.25 Pt continues to have daily nausea worse in the morning when he wakes up. Worse with exertion. It is not typically related to oral intake. Compazine has mad him too drowsy and is unable to take it when he works. He feels the prednisone has helped with some pain and giving him energy. Started on Voquezna. ROS Const Constitutional: Positive for fatigue; No fever(s) or weight change ENT ENT: No difficulty swallowing Gastro GI: Positive for abdominal pain, change in bowel habits, diarrhea and nausea/dyspepsia; No belching, bloating, change in stool character, coffee ground emesis, constipation, cramping, heartburn, difficulty swallowing, feeling full early, excessive flatus, incontinent of stools, Vomiting blood/hematemesis, Blood in stool, loose stools, Black,tarry stools, pain with swallowing, vomiting or other Musc Musculoskeletal: Positive for back pain; No joint pain Skin Skin: Positive for rash; No yellowing of the eye or itchy eyes Psych Psychiatric: No anxiety and No depression Endo Endocrine: Positive for fatigue; No weight (more content not included)... Normal [facility] Gastroenterology Visit Repor ton 02-24-2025 Gastroenterology Visit Report [facility] G[facility]enterology [address] [place] [address] OFFICE VISIT Date of Service: 02/24/25 MR#: [id number] Acct: [id number] Name: TERRIE ALLEN Rep #: [id number] : 1980 Provider: TRISTEN Han Age/Sex: 44/M [place] [facility] [place] Status: Signed Intake Vital Signs 11/16/24 14:34 Height 6 ft 3 in Intake Visit Reasons: Medication questions Chief Complaint: nausea Allergies No Known Allergies Allergy (Verified 11/16/24 14:29) Medications ???Medication ???Instructions ???Recorded ???Confirmed ???Type meloxicam 7.5 mg tablet 7.5 mg PO QDAY #90 tabs 02/09/25 Rx pantoprazole 40 mg tablet,delayed 40 mg PO QDAY #90 tabs 02/11/25 Rx release prednisone 20 mg tablet 20 mg PO QDAY 02/24/25 02/24/25 Hi story prochlorperazine maleate 10 mg 10 mg PO QDAY 02/24/25 02/24/25 Hi story tablet promethazine 12.5 mg tablet 12.5 mg PO TID PRN nausea and 01/2802/24/25 Rx vomiting #30 tabs Nurse's Note: OV 02/24/25 Pt here for f/u and repots nausea that is making it hard for him to work and do daily activities. Pt reports the nausea is worse in the mornings. Pt continues prednisone and finds it to be helping. [facility] Medical History Difficulty swallowing History of IBS Gastric reflux Anterior abdomen avulsion History of abdominal abscess Nonhealing surgical wound Superior mesenteric vein thrombosis Sepsis without acute organ dysfunction Collar bone fracture COVID-19 Surgical History History of surgical procedure History of ankle surgery History of open reduction and internal fixation (ORIF) procedure Status post right hemicolectomy S/P exploratory laparotomy H/O hernia repair Family History Mother Diabetes Kidney disease had mass, removed portion of it. Father Diabetes Cancer prostate Colon cancer 75 Grandmother Cancer stomach Social History adopted: No household members: spouse number of children: 1 current occupational status: employed current occupation: [employer]. pets and animals: Yes pets and animals: dog(s) sexually active: Yes Smoking Status: Never smoker Electronic Cigarette Use: not used alcohol intake: never substance use type: does not use diet: lactose free caffeine: Yes (1-2) Type: carbonated beverages frequency: does not exercise seatbelt use: always do you feel safe at home: Yes HPI HPI Chief Complaint: nausea Details: TERRIE ALLEN, is a 44 M who presents to the office today for f/u. abd/pelvis CT 6.7.24 Status post right hemicolectomy with postsurgical changes and improvement of the previously seen thick-walled fluid collection in the right lower quadrant. No new abnormality is seen EGD with Dr García 8.8.24 No gross lesions in the duodenal bulb, in the first portion of the duodenum and in the second portion of the duodenum. No specimens collected. Gastritis. Biopsied. Z-line irregular, 43 cm from the incisors. Biopsied. Texture changed, abnormal (rule out Heredia's esophagus) mucosa in the esophagus. Biopsied. The examination was otherwise normal. BGI established in Nov 2024 with hx of intussusception (december 2023) s/p emergent right hemicolectomy. Post op pt developed sepsis.. Transferred to [place] for LUZ drain for an abscess. Since then he has been having general malaise, decreased appetite, abd pain and nausea. GET 2.7.25 normal 32 minutes abd/pelvis 2.10.25 The gallbladder is contracted and contains questionable gallstones. Mild right hydrocele. HIDA 3.13.25 normal Last OV 3.18.25 Pt having increased nausea and continued right pain. taking Zofran daily. Discontinuing sucralfate. Eating a bland diet. Start 25 g of fiber daily, scopolamine patch and prednisone 20 mg daily for one month. OV 4.30.25 Pt continues to have daily nausea worse in the morning when he wakes up. Worse with exertion. It is not typically related to oral intake. Compazine has mad him too drowsy and is unable to take it when he works. He feels the prednisone has helped with some pain and giving him energy. ROS Const Constitutional: Positive for fatigue; No fever(s) or weight change ENT ENT: No difficulty swallowing Gastro GI: Positive for abdominal pain, heartburn, excessive flatus and nausea/dyspepsia; No belching, bloating, change in bowel habits, change in stool character, coffee ground emesis, constipation, cramping, diarrhea, difficulty swallowing, feeling full early, incontinent of stools, Vomiting blood/hematemesis, Blood in stool, loose stools, Black,tarry stools, pain with swallowing, vomiting or other (more content not included)... Normal [facility] Nursing Communicationon 01-27 Flush, Wound gel or Abx ointment, gauze, coban [facility] Prepped for phenol matrixectomy [facility] Nursing CommunicationOrdered By: Petra Aquino on 02-23-2025 [facility] Gastroenterology Visit Repor ton 01-12-2025 Gastroenterology Visit Report [facility] Gastroenterology [address] [place] [address] OFFICE VISIT Date of Service: 01/12/25 MR#: [id number] Acct: [id number] Name: ALLENTERRIE MEMO Rep #: [id number] : 1980 Provider: Lee Robles DO Age/Sex: 44/M [place] [facility] [place] Status: Signed Intake Vital Signs 11/16/24 14:34 Height 6 ft 3 in Intake Visit Reasons: HIDA scan follow up Allergies No Known Allergies Allergy (Verified 11/16/24 14:29) Medications ???Medication ???Instructions ???Recorded ???Confirmed ???Type meloxicam 7.5 mg tablet 7.5 mg PO QDAY #90 tabs 11/16/24 0 01/12/25 Rx pantoprazole 40 mg tablet,delayed 40 mg PO QDAY #90 tabs 11/16/24 0 01/12/25 Rx release ondansetron HCl 4 mg tablet 4 mg PO Q8H 01/12/25 01/12/25 Hist ory prednisone 20 mg tablet 20 mg PO QDAY #30 tabs 01/12/25 Rx scopolamine base 1 mg over 3 days 1 patch transdermal Q3D PRN nause a 01/12/25 01/12/25 Rx transdermal patch #10 ea [facility] Medical History Difficulty swallowing History of IBS Gastric reflux Anterior abdomen avulsion History of abdominal abscess Nonhealing surgical wound Superior mesenteric vein thrombosis Sepsis without acute organ dysfunction Collar bone fracture COVID-19 Surgical History History of surgical procedure History of ankle surgery History of open reduction and internal fixation (ORIF) procedure Status post right hemicolectomy S/P exploratory laparotomy H/O hernia repair Family History Mother Diabetes Kidney disease had mass, removed portion of it. Father Diabetes Cancer prostate Colon cancer 75 Grandmother Cancer stomach Social History adopted: No household members: spouse number of children: 1 current occupational status: employed current occupation: [employer]. pets and animals: Yes pets and animals: dog(s) sexually active: Yes Smoking Status: Never smoker Electronic Cigarette Use: not used alcohol intake: never substance use type: does not use diet: lactose free caffeine: Yes (1-2) Type: carbonated beverages frequency: does not exercise seatbelt use: always do you feel safe at home: Yes HPI HPI Details: TERRIE ALLEN, is a 44 M who presents to the office today for follow up. abd/pelvis CT 6.05.20 Status post right hemicolectomy with postsurgical changes and improvement of the previously seen thick-walled fluid collection in the right lower quadrant. No new abnormality is seen EGD with Dr García 8.06.20 No gross lesions in the duodenal bulb, in the first portion of the duodenum and in the second portion of the duodenum. No specimens collected. Gastritis. Biopsied. Z-line irregular, 43 cm from the incisors. Biopsied. Texture changed, abnormal (rule out Heredia's esophagus) mucosa in the esophagus. Biopsied. The examination was otherwise normal. GET 2.7.25 normal 32 minutes abd/pelvis 2.10.25 The gallbladder is contracted and contains questionable gallstones. Mild right hydrocele. *BGI established 2.13.25 pt reports that 11 months ago he had intussusception, had emergency surgery on 01.10.24 to remove mass, part of the colon and small bowel. After first surgery he got an infection and went septic, had another surgery. After this he developed an internal abscess, was transferred to [place] for a LUZ drain to drain abscess. Pt reports that he was on IV and oral antibiotics until June of 2024. Pt reports that overall he is experiencing generalized malaise, decreased appetite, abdominal pain, and nausea mostly in the morning. Pt reports 3 soft bm per day; usually 1 hr after eating. Pt reports that he has been on sucralfate for a few weeks now and has not noticed an improvement in symptoms, but has noticed that he is having less frequent bowel movements and they are becoming more formed. HIDA 3.13.25 normal OV 3.18.25 pt reports increased nausea, is taking Zofran daily. Pt reports continued right-sided pain. Pt reports since stopping sucralfate 2 weeks ago he has been having normal stools. Pt reports as long as he takes his pantoprazole, he is not having trouble with HB. Continues to eat a "bland diet". ROS Const Constitutional: No fatigue, fever(s) or weight change ENT ENT: No difficulty swallowing Gastro GI: Positive for abdominal pain, change in bowel habits, heartburn and nausea/dyspepsia; No belching, bloating, change in stool character, coffee ground emesis, constipation, cramping, diarrhea, difficulty swallowing, feeling full early, excessive flatus, incontinent of stools, Vomiting blood/hematemesis, Blood in stool, loose stools, Black,lexi (more content not included)... Normal [facility] Hepatobilliary Img w/Pharm I nton 01-07-2025 Hepatobilliary Img w/Pharm Int [facility] [address] [place] [address] Hepatobilliary Img w/Pharm Int MR#: [id number] Acct: [id number] Name: TERRIE ALLEN Rep #: [id number] : 1980 M 44 From: Charlie leos MD PCP: Dr. Geronimo Lemus MD Status: REG CLI Study: Hepatobilliary Img w/Pharm Int Date of Exam: 0 01/07/25 Exam# [id number] Ordering Dr: Lee Robles DO PROCEDURE: HEPATOBILLIARY IMG W/PHARM INT REASON FOR EXAM: NAUSEA TECHNIQUE: Intravenous Choletec with planar imaging of the abdomen. 2 mcg Kinevac intravenously approximately 60 minutes after the radiopharmaceutical with additional anterior imaging and a region of interest drawn around the gallbladder to calculate a time-activity curve. RADIOPHARMACEUTICAL: 5.8 mCi of technetium labeled mebrofenin COMPARISON: Comparison is made with prior CT scan of the abdomen and pelvis dated December 07, 2024. FINDINGS: There is good uptake of the radiopharmaceutical by the liver. Normal gallbladder visualization with the gallbladder identified by 30 minutes. Gallbladder Ejection Fraction: 60 % (Normal is >35%) NM/Hepatobilliary Img w/Pharm Int IMPRESSION: NORMAL HIDA SCAN AND GALLBLADDER EJECTION FRACTION. Reading Location: [facility] CC: Dr. Geronimo Lemus MD; Lee Robles DO Business Support Assistant: Signed Normal [facility] ANCAon 12-21-2024 Atypical pANCA <1:20 Normal Neg:<1:20 [facility] Comment on above: Order Comment: Test( s) 602261-Eiizthyfkjhp Antigenwas developed and its performance characteristicsdetermined by [employer]. It has not been cleared or approvedby the Food and Drug Administration. Result Comment: The atypical pANCA pattern has been observed in a significant percentage of patients with ulcerative colitis, primary sclerosing cholangitis and autoimmune hepatitis. Performed By: #### L 3100.7050, L3200.1600, L3300.0450, L501.01970, L3410.2400, L5500.0550, L3100.5440, L501.6710, L504.2610, L503.0105, L3100.3425, L506.0400, L4500.2000, L2100.0000, L3200.0500, L501.9520, L3100.8408, L3100.5700, L4500.5000, L3300.1200, L101.9900, L3100.7325, L3100.5800, L3100.7250, L506.0250, L4500.0100, L3100.5600 ####[facility] [address] [facility] [place], [address] Cytoplasmic Ab <1:20 Normal Neg:<1:20 [facility] Comment on above: Order Comment: Test( s) 987094-Afsxfnmhlant Antigenwas developed and its performance characteristicsdetermined by [email or web address] ([employer]). It has not been cleared or approvedby the Food and Drug Administration. Performed By: #### L 3100.7050, L3200.1600, L3300.0450, L501.99302, L3410.2400, L5500.0550, L3100.5440, L501.6710, L504.2610, L503.0105, L3100.3425, L506.0400, L4500.2000, L2100.0000, L3200.0500, L501.9520, L3100.8408, L3100.5700, L4500.5000, L3300.1200, L101.9900, L3100.7325, L3100.5800, L3100.7250, L506.0250, L4500.0100, L3100.5600 ####[facility] [address] [facility] [place], [address] Perinuclear Ab. <1:20 Normal Neg:<1:20 [facility] Comment on above: Order Comment: Test( s) 769268-Zwimacbywzeu Antigenwas developed and its performance characteristicsdetermined by [email or web address] ([employer]). It has not been cleared or approvedby the Food and Drug Administration. Result Comment: The presence of positive fluorescence exhibiting P-ANCA or C-ANCA patterns alone is not specific for the diagnosis of Xavier's Granulomatosis (WG) or microscopic polyangiitis. Decisions about treatment should not be based solely on ANCA IFA results. The International ANCA Group Consensus recommends follow up testing of positive sera with both CA- 3 and MPO-ANCA enzyme immunoassays. As many as 5% serum samples are positive only by EIA. Ref. AM J Clin Pathol 1999;111:507-513. Performed By: #### L 3100.7050, L3200.1600, L3300.0450, L501.45277, L3410.2400, L5500.0550, L3100.5440, L501.6710, L504.2610, L503.0105, L3100.3425, L506.0400, L4500.2000, L2100.0000, L3200.0500, L501.9520, L3100.8408, L3100.5700, L4500.5000, L3300.1200, L101.9900, L3100.7325, L3100.5800, L3100.7250, L506.0250, L4500.0100, L3100.5600 ####[facility] [address] [place], [address] AT III Func / Immunolon 02-2 AT3 AG, IMMUNOL 120 Normal 72-124 [facility] Comment on above: Order Comment: Test( s) 922014-Zidggbcfdkls Antigenwas developed and its performance characteristicsdetermined by [facility]. It has not been cleared or approvedby the Food and Drug Administration. Performed By: #### L 3100.7050, L3200.1600, L3300.0450, L501.55059, L3410.2400, L5500.0550, L3100.5440, L501.6710, L504.2610, L503.0105, L3100.3425, L506.0400, L4500.2000, L2100.0000, L3200.0500, L501.9520, L3100.8408, L3100.5700, L4500.5000, L3300.1200, L101.9900, L3100.7325, L3100.5800, L3100.7250, L506.0250, L4500.0100, L3100.5600 ####[facility] [address] [place], [place], [id number] AT3 FUNCTIONAL 118 Normal 75-135 [facility] Comment on above: Order Comment: Test( s) 277543-Tipegcsbflni Antigenwas developed and its performance characteristicsdetermined by [email or web address] ([employer]). It has not been cleared or approvedby the Food and Drug Administration. Result Comment: Dire ct Xa inhibitor anticoagulants such as rivaroxaban, apixaban and edoxaban will lead to spuriously elevated antithrombin activity levels possibly masking a deficiency. Performed By: #### L 3100.7050, L3200.1600, L3300.0450, L501.98883, L3410.2400, L5500.0550, L3100.5440, L501.6710, L504.2610, L503.0105, L3100.3425, L506.0400, L4500.2000, L2100.0000, L3200.0500, L501.9520, L3100.8408, L3100.5700, L4500.5000, L3300.1200, L101.9900, L3100.7325, L3100.5800, L3100.7250, L506.0250, L4500.0100, L3100.5600 ####[facility] [address] [place], [place], [address] Anticardiolipin IgA,G,Mon ANTICARDIO IgA < 9 Normal 0-11 [facility] Comment on above: Order Comment: Test( s) 284486-Pohzcxdikdvk Antigenwas developed and its performance characteristicsdetermined by [email or web address] ([employer]). It has not been cleared or approvedby the Food and Drug Administration. Result Comment: Nega tive: <12 Indeterminate: 12 - 20 Low-Med Positive: >20 - 80 High Positive: >80 Performed By: #### L 3100.7050, L3200.1600, L3300.0450, L501.39432, L3410.2400, L5500.0550, L3100.5440, L501.6710, L504.2610, L503.0105, L3100.3425, L506.0400, L4500.2000, L2100.0000, L3200.0500, L501.9520, L3100.8408, L3100.5700, L4500.5000, L3300.1200, L101.9900, L3100.7325, L3100.5800, L3100.7250, L506.0250, L4500.0100, L3100.5600 ####[facility] [address] [place], [address] ANTICARDIO IgG < 9 Normal 0-14 [facility] Comment on above: Order Comment: Test( s) 523011-Jibgdszkvnji Antigenwas developed and its performance characteristicsdetermined by [email or web address] ([employer]). It has not been cleared or approvedby the Food and Drug Administration. Result Comment: Nega tive: <15 Indeterminate: 15 - 20 Low-Med Positive: >20 - 80 High Positive: >80 Performed By: #### L 3100.7050, L3200.1600, L3300.0450, L501.38939, L3410.2400, L5500.0550, L3100.5440, L501.6710, L504.2610, L503.0105, L3100.3425, L506.0400, L4500.2000, L2100.0000, L3200.0500, L501.9520, L3100.8408, L3100.5700, L4500.5000, L3300.1200, L101.9900, L3100.7325, L3100.5800, L3100.7250, L506.0250, L4500.0100, L3100.5600 ####[facility] [address] [place], [address] Anticardio.IgM < 9 Normal 0-12 [facility] Comment on above: Order Comment: Test( s) 259074-Zupinoxcjrwp Antigenwas developed and its performance characteristicsdetermined by [facility]. It has not been cleared or approvedby the Food and Drug Administration. Result Comment: Nega tive: <13 Indeterminate: 13 - 20 Low-Med Positive: >20 - 80 High Positive: >80 Performed By: #### L 3100.7050, L3200.1600, L3300.0450, L501.22465, L3410.2400, L5500.0550, L3100.5440, L501.6710, L504.2610, L503.0105, L3100.3425, L506.0400, L4500.2000, L2100.0000, L3200.0500, L501.9520, L3100.8408, L3100.5700, L4500.5000, L3300.1200, L101.9900, L3100.7325, L3100.5800, L3100.7250, L506.0250, L4500.0100, L3100.5600 ####[facility] [address] [place], [address] Celiac Disease Profileon ENDOMYSIAL IGA Negative Normal Negative [facility] Comment on above: Order Comment: Test( s) 667739-Czrlafkgvtcw Antigenwas developed and its performance characteristicsdetermined by [email or web address] ([employer]). It has not been cleared or approvedby the Food and Drug Administration. Performed By: #### L 3100.7050, L3200.1600, L3300.0450, L501.92134, L3410.2400, L5500.0550, L3100.5440, L501.6710, L504.2610, L503.0105, L3100.3425, L506.0400, L4500.2000, L2100.0000, L3200.0500, L501.9520, L3100.8408, L3100.5700, L4500.5000, L3300.1200, L101.9900, L3100.7325, L3100.5800, L3100.7250, L506.0250, L4500.0100, L3100.5600 ####[facility] [address] [place], [place], [address] tTG IGA <2 Normal 0-3 [facility] Comment on above: Order Comment: Test( s) 935049-Sofcgzkwxezo Antigenwas developed and its performance characteristicsdetermined by [email or web address] ([employer]). It has not been cleared or approvedby the Food and Drug Administration. Result Comment: Nega tive 0 - 3 Weak Positive 4 - 10 Positive >10 Tissue Transglutaminase (tTG) has been identified as the endomysial antigen. Studies have demonstr- ated that endomysial IgA antibodies have over 99% specificity for gluten sensitive enteropathy. Performed By: #### L 3100.7050, L3200.1600, L3300.0450, L501.00786, L3410.2400, L5500.0550, L3100.5440, L501.6710, L504.2610, L503.0105, L3100.3425, L506.0400, L4500.2000, L2100.0000, L3200.0500, L501.9520, L3100.8408, L3100.5700, L4500.5000, L3300.1200, L101.9900, L3100.7325, L3100.5800, L3100.7250, L506.0250, L4500.0100, L3100.5600 ####[facility] [address] [place], [address] Complement C3on 12-21-2024 COMP C3 130 mg/dL Normal 82-167 [facility] Comment on above: Order Comment: Test( s) 164302-Empcscokjmdd Antigenwas developed and its performance characteristicsdetermined by [email or web address] [facility]). It has not been cleared or approvedby the Food and Drug Administration. Performed By: #### L 3100.7050, L3200.1600, L3300.0450, L501.43296, L3410.2400, L5500.0550, L3100.5440, L501.6710, L504.2610, L503.0105, L3100.3425, L506.0400, L4500.2000, L2100.0000, L3200.0500, L501.9520, L3100.8408, L3100.5700, L4500.5000, L3300.1200, L101.9900, L3100.7325, L3100.5800, L3100.7250, L506.0250, L4500.0100, L3100.5600 ####[facility] [address] [place], [place], [id number] Complement C4on 12-21-2024 COMPLEMENT, C4 20 mg/dL Normal 12-38 [facility] Comment on above: Order Comment: Test( s) 393996-Xpxrcqsnxrey Antigenwas developed and its performance characteristicsdetermined by [email or web address] [facility]). It has not been cleared or approvedby the Food and Drug Administration. Performed By: #### L 3100.7050, L3200.1600, L3300.0450, L501.28125, L3410.2400, L5500.0550, L3100.5440, L501.6710, L504.2610, L503.0105, L3100.3425, L506.0400, L4500.2000, L2100.0000, L3200.0500, L501.9520, L3100.8408, L3100.5700, L4500.5000, L3300.1200, L101.9900, L3100.7325, L3100.5800, L3100.7250, L506.0250, L4500.0100, L3100.5600 ####[facility] [address] [place], [place], [id number] Complement CH50on 12-21-2024 COMPLEMENT,CH50 60 U/mL Normal >41 [facility] Comment on above: Order Comment: Test( s) 756715-Twffznupzzaw Antigenwas developed and its performance characteristicsdetermined by [email or web address] [facility]). It has not been cleared or approvedby the Food and Drug Administration. Result Comment: Age Male Female 1 - 30 days Not Estab. Not Estab. 31 days - 6 months >32 >20 7 months - 17 years >39 >39 >17 years >41 >41 NOTE: The adult (">17 years") reference interval range is used to flag abnormals on this report. If the patient is 17 years old or younger, use the table above to determine out of range values. Performed By: #### L 3100.7050, L3200.1600, L3300.0450, L501.94535, L3410.2400, L5500.0550, L3100.5440, L501.6710, L504.2610, L503.0105, L3100.3425, L506.0400, L4500.2000, L2100.0000, L3200.0500, L501.9520, L3100.8408, L3100.5700, L4500.5000, L3300.1200, L101.9900, L3100.7325, L3100.5800, L3100.7250, L506.0250, L4500.0100, L3100.5600 ####[facility] [address] [place], [place], [address] Fact V Leiden Mutationon FACTOR V LEIDEN Comment Normal . [facility] Comment on above: Order Comment: Test( s) 582340-Vgyaiwixiaou Antigenwas developed and its performance characteristicsdetermined by [facility]. It has not been cleared or approvedby the Food and Drug Administration. Result Comment: Resu lt: c.1601G>A (p.Pya101Iwb) - Not Detected This result is not associated with an increased risk for venous thromboembolism. See Additional Clinical Information and Comments. Additional Clinical Information: Venous thromboembolism is a multifactorial disease influenced by genetic, environmental, and circumstantial risk factors. The c.1601G>A (p. Vgg711Cfw) variant in the F5 gene, commonly referred to as Factor V Leiden, is a genetic risk factor for venous thromboembolism. Heterozygous carriers of this variant have a 6- to 8-fold increased risk for venous thromboembolism. Individuals homozygous for this variant (ie, with a copy of the variant on each chromosome) have an approximately 80-fold increased risk for venous thromboembolism. Individuals who carry both a c.*97G>A variant in the F2 gene and Factor V Leiden have an approximately 20-fold increased risk for venous thromboembolism. Risks are likely to be even higher in more complex genotype combinations involving the F2 c.*97G>A variant and Factor V Leiden (PMID: 74172182). Additional risk factors include but are not limited to: deficiency of protein C, protein S, or antithrombin III, age, male sex, personal or family history of deep vein thromboembolism, smoking, surgery, prolonged immobilization, malignant neoplasm, tamoxifen treatment, raloxifene treatment, oral contraceptive use, hormone replacement therapy, and . Management of thrombotic risk and thrombotic events should follow established guidelines and fit the clinical circumstance. This result cannot predict the occurrence or recurrence of a thrombotic event. Comment: Genetic counseling is recommended to discuss the potential clinical implications of positive results, as well as recommendations for testing family members. Genetic Coordinators are available for health care providers to discuss results at [phone] Test Details: Variant Analyzed: c.1601G>A (p. Lsr849Ldr), referred to as Factor V Leiden Methods/Limitations: DNA analysis of the F5 gene (NM_000130.5) was performed by PCR amplification followed by restriction enzyme analysis. The diagnostic sensitivity is >99%. Results must be combined with clinical information for the most accurate interpretation. Molecular-based testing is highly accurate, but as in any laboratory test, diagnostic errors may occur. False positive or false negative results may occur for reasons that include genetic variants, blood transfusions, bone marrow transplantation, somatic or tissue-specific mosaicism, mislabeled samples, or erroneous representation of family relationships. This test was developed and its performance characteristics determined by [email or web address] ([employer]). It has not been cleared or approved by the Food and Drug Administration. References: Hector S, Maribel AK, Aaron R, Brendon WW, Amari JH; [employer] Professional Practice and Guidelines Committee. Addendum: [employer] [employer] consensus statement on factor V Leiden mutation testing. [employer] Med. 2020Dec 30. doi: 10.1038/[id number]-s. PMID: 30475740. Cherri CANAS. Factor V Leiden Thrombophilia. 1998March 10 (Updated 2017Oct 31). In: Fer MP, Massimo HH, Shaka RA, et al., editors. [employer], Part of [employer](R) (Internet). [place] ([place]): [facility]; [phone]. Available from: https://www.ncbi.nlm.nih.gov/books/EEY4475/ Bhavesh S, Maribel AK, Sin X, Jeremie B, Yanira EB, Berna P, Aliza CS; [facility] Laboratory Loop Drier Operator Committee. Venous thromboembolism laboratory testing (factor V Leiden and factor II c.*97G>A), 2018 update: a technical standard of the [employer] and [employer] (ACMG). Mignon Med. 2018 Sep;20(12):6704-6059. doi: 10.1038/[id number]-b. Epub 2017Aug 01. PMID: 34033524. Performed By: #### L 3100.7050, L3200.1600, L3300.0450, L501.07057, L3410.2400, L5500.0550, L3100.5440, L501.6710, L504.2610, L503.0105, L3100.3425, L506.0400, L4500.2000, L2100.0000, L3200.0500, L501.9520, L3100.8408, L3100.5700, L4500.5000, L3300.1200, L101.9900, L3100.7325, L3100.5800, L3100.7250, L506.0250, L4500.0100, L3100.5600 ####[facility] [address] [place], [place], [address] Reviewed By Comment Normal . [facility] Comment on above: Order Comment: Test( s) 944205-Wipmlkxqntjd Antigenwas developed and its performance characteristicsdetermined by [facility]. It has not been cleared or approvedby the Food and Drug Administration. Result Comment: Tech nical Component performed at [facility] RTP Professional Component performed by: Valmarc Rachel Foster, Ph.D., [facility] Director, Molecular Genetics [address] [place] [address] [place] [address] Performed By: #### L 3100.7050, L3200.1600, L3300.0450, L501.21865, L3410.2400, L5500.0550, L3100.5440, L501.6710, L504.2610, L503.0105, L3100.3425, L506.0400, L4500.2000, L2100.0000, L3200.0500, L501.9520, L3100.8408, L3100.5700, L4500.5000, L3300.1200, L101.9900, L3100.7325, L3100.5800, L3100.7250, L506.0250, L4500.0100, L3100.5600 ####[facility] [address] [place], [address] Factor II, DNA Analysison FACTOR II, DNA Comment Normal . [facility] Comment on above: Order Comment: Test( s) 138566-Jvsvnwxzqqji Antigenwas developed and its performance characteristicsdetermined by [email or web address] ([employer]). It has not been cleared or approvedby the Food and Drug Administration. Result Comment: Resu lt: c.*97G>A - Not Detected This result is not associated with an increased risk for venous thromboembolism. See Additional Clinical Information and Comments. Additional Clinical Information: Venous thromboembolism is a multifactorial disease influenced by genetic, environmental, and circumstantial risk factors. The c.*97G>A variant in the F2 gene is a genetic risk factor for venous thromboembolism. Heterozygous carriers have a 2- to 4-fold increased risk for venous thromboembolism. Homozygotes for the c.*97G>A variant are rare. The annual risk of VTE in homozygotes has been reported to be 1.1%/year. Individuals who carry both a c.*97G>A variant in the F2 gene and a c.1601G>A (p. Gor779Xcg) variant in the F5 gene (commonly referred to as Factor V Leiden) have an approximately 20- fold increased risk for venous thromboembolism. Risks are likely to be even higher in more complex genotype combinations involving the F2 c.*97G>A variant and Factor V Leiden (PMID: 93524729). Additional risk factors include but are not limited to: deficiency of protein C, protein S, or antithrombin III, age, male sex, personal or family history of deep vein thromboembolism, smoking, surgery, prolonged immobilization, malignant neoplasm, tamoxifen treatment, raloxifene treatment, oral contraceptive use, hormone replacement therapy, and . Management of thrombotic risk and thrombotic events should follow established guidelines and fit the clinical circumstance. This result cannot predict the occurrence or recurrence of a thrombotic event. Comments: Genetic counseling is recommended to discuss the potential clinical implications of positive results, as well as recommendations for testing family members. Genetic Coordinators are available for health care providers to discuss results at [phone] Test Details: Variant analyzed: c.*97G>A, previously referred to as L15289D Methods/Limitations: DNA analysis of the F2 gene (NM_000506.5) was performed by PCR amplification followed by restriction enzyme analysis. The diagnostic sensitivity is >99%. Results must be combined with clinical information for the most accurate interpretation. Molecular-based testing is highly accurate, but as in any laboratory test, diagnostic errors may occur. False positive or false negative results may occur for reasons that include genetic variants, blood transfusions, bone marrow transplantation, somatic or tissue-specific mosaicism, mislabeled samples, or erroneous representation of family relationships. This test was developed and its performance characteristics determined by [email or web address] ([employer]). It has not been cleared or approved by the Food and Drug Administration. References: Hector Rajan, Maribel WAGONER, Aaron R, Brendon WW, Amari JH; [employer] Professional Practice and Guidelines Committee. Addendum: [place] [employer] consensus statement on factor V Leiden mutation testing. M[employer] Med. 2020Dec 30. doi: 10.1038/[id number]-d. PMID: 17779830. Cherri CANAS. Prothrombin Thrombophilia. 2005May 21 [Updated 2020Dec 01]. In: Fer MP, Massimo HH, Shaka RA, et al., editors. Michael(R) [Internet]. [place] ([place]): [facility], [place]; [phone]. Available from: https://www.ncbi.nlm.nih.gov/books/NCJ3273/ Bhavesh Rajan, Maribel WAGONER, Sin X, Jeremie B, Yanira EB, Berna P, Aliza CS; [employer] Laboratory Loop Drier Operator Committee. Venous thromboembolism laboratory testing (factor V Leiden and factor II c.*97G>A), 2018 update: a technical standard of the [employer] and [employer] (ACMG). Mignon Med. 2018 Sep;20(12):2245-4187. doi: 10.1038/[id number]-t. Epub 2017Aug 01. PMID: 03838892. Performed By: #### L 3100.7050, L3200.1600, L3300.0450, L501.91450, L3410.2400, L5500.0550, L3100.5440, L501.6710, L504.2610, L503.0105, L3100.3425, L506.0400, L4500.2000, L2100.0000, L3200.0500, L501.9520, L3100.8408, L3100.5700, L4500.5000, L3300.1200, L101.9900, L3100.7325, L3100.5800, L3100.7250, L506.0250, L4500.0100, L3100.5600 ####[facility] [address] [place], [address] JACOB + Protein Elect, Serumon 12-21-2024 Albumin [Mass/Vol] 4.4 g/dL Normal 2.9-4.4 [facility] Comment on above: Order Comment: Test( s) 401341-Scniikpzfdiv Antigenwas developed and its performance characteristicsdetermined by [facility]. It has not been cleared or approvedby the Food and Drug Administration.N Performed By: #### L 3100.7050, L3200.1600, L3300.0450, L501.91378, L3410.2400, L5500.0550, L3100.5440, L501.6710, L504.2610, L503.0105, L3100.3425, L506.0400, L4500.2000, L2100.0000, L3200.0500, L501.9520, L3100.8408, L3100.5700, L4500.5000, L3300.1200, L101.9900, L3100.7325, L3100.5800, L3100.7250, L506.0250, L4500.0100, L3100.5600 ####[facility] [address] [place], [address] Albumin/Globulin [Mass ratio] 1.6 {ratio} Normal 0.7-1.7 [facility] Comment on above: Order Comment: Test( s) 844723-Dsecyoxhsqts Antigenwas developed and its performance characteristicsdetermined by [email or web address] ([employer]). It has not been cleared or approvedby the Food and Drug Administration.N Performed By: #### L 3100.7050, L3200.1600, L3300.0450, L501.35980, L3410.2400, L5500.0550, L3100.5440, L501.6710, L504.2610, L503.0105, L3100.3425, L506.0400, L4500.2000, L2100.0000, L3200.0500, L501.9520, L3100.8408, L3100.5700, L4500.5000, L3300.1200, L101.9900, L3100.7325, L3100.5800, L3100.7250, L506.0250, L4500.0100, L3100.5600 ####[facility] [address] [place], [address] VDXTP-7-LNPF 0.2 g/dL Normal 0.0-0.4 [facility] Comment on above: Order Comment: Test( s) 945673-Cdhbescykarn Antigenwas developed and its performance characteristicsdetermined by [email or web address] ([employer]). It has not been cleared or approvedby the Food and Drug Administration.N Performed By: #### L 3100.7050, L3200.1600, L3300.0450, L501.20122, L3410.2400, L5500.0550, L3100.5440, L501.6710, L504.2610, L503.0105, L3100.3425, L506.0400, L4500.2000, L2100.0000, L3200.0500, L501.9520, L3100.8408, L3100.5700, L4500.5000, L3300.1200, L101.9900, L3100.7325, L3100.5800, L3100.7250, L506.0250, L4500.0100, L3100.5600 ####[facility] [address] [place], [place], [id number] ZVSYC-3-IIKU 0.5 g/dL Normal 0.4-1.0 [facility] Comment on above: Order Comment: Test( s) 295925-Njeqawfvpaya Antigenwas developed and its performance characteristicsdetermined by [email or web address]). It has not been cleared or approvedby the Food and Drug Administration.N Performed By: #### L 3100.7050, L3200.1600, L3300.0450, L501.29602, L3410.2400, L5500.0550, L3100.5440, L501.6710, L504.2610, L503.0105, L3100.3425, L506.0400, L4500.2000, L2100.0000, L3200.0500, L501.9520, L3100.8408, L3100.5700, L4500.5000, L3300.1200, L101.9900, L3100.7325, L3100.5800, L3100.7250, L506.0250, L4500.0100, L3100.5600 ####[facility] [address] [place], [address] BETA GLOBULIN 1.0 g/dL Normal 0.7-1.3 [facility] Comment on above: Order Comment: Test( s) 195596-Qtlbgvfednol Antigenwas developed and its performance characteristicsdetermined by [email or web address] ([employer]). It has not been cleared or approvedby the Food and Drug Administration.N Performed By: #### L 3100.7050, L3200.1600, L3300.0450, L501.13373, L3410.2400, L5500.0550, L3100.5440, L501.6710, L504.2610, L503.0105, L3100.3425, L506.0400, L4500.2000, L2100.0000, L3200.0500, L501.9520, L3100.8408, L3100.5700, L4500.5000, L3300.1200, L101.9900, L3100.7325, L3100.5800, L3100.7250, L506.0250, L4500.0100, L3100.5600 ####[facility] [address] [facility]. [place], [place], [id number] GAMMA GLOBULIN 1.2 g/dL Normal 0.4-1.8 [facility] Comment on above: Order Comment: Test( s) 508832-Bdgyiyixmlym Antigenwas developed and its performance characteristicsdetermined by [email or web address] ([employer]). It has not been cleared or approvedby the Food and Drug Administration.N Performed By: #### L 3100.7050, L3200.1600, L3300.0450, L501.48435, L3410.2400, L5500.0550, L3100.5440, L501.6710, L504.2610, L503.0105, L3100.3425, L506.0400, L4500.2000, L2100.0000, L3200.0500, L501.9520, L3100.8408, L3100.5700, L4500.5000, L3300.1200, L101.9900, L3100.7325, L3100.5800, L3100.7250, L506.0250, L4500.0100, L3100.5600 ####[facility] [address] [place], [address] Globulin (S) [Mass/Vol] 2.9 g/dL Normal 2.2-3.9 [facility] Comment on above: Order Comment: Test( s) 888078-Xulcnqklbgcc Antigenwas developed and its performance characteristicsdetermined by [email or web address] ([employer]). It has not been cleared or approvedby the Food and Drug Administration.N Performed By: #### L 3100.7050, L3200.1600, L3300.0450, L501.07997, L3410.2400, L5500.0550, L3100.5440, L501.6710, L504.2610, L503.0105, L3100.3425, L506.0400, L4500.2000, L2100.0000, L3200.0500, L501.9520, L3100.8408, L3100.5700, L4500.5000, L3300.1200, L101.9900, L3100.7325, L3100.5800, L3100.7250, L506.0250, L4500.0100, L3100.5600 ####[facility] [address] [place], [address] JACOB RESULT,S Comment Normal . [facility] Comment on above: Order Comment: Test( s) 970740-Bltzfhsxnupi Antigenwas developed and its performance characteristicsdetermined by [email or web address] ([employer]). It has not been cleared or approvedby the Food and Drug Administration.N Result Comment: No m onoclonality detected. Performed By: #### L 3100.7050, L3200.1600, L3300.0450, L501.88185, L3410.2400, L5500.0550, L3100.5440, L501.6710, L504.2610, L503.0105, L3100.3425, L506.0400, L4500.2000, L2100.0000, L3200.0500, L501.9520, L3100.8408, L3100.5700, L4500.5000, L3300.1200, L101.9900, L3100.7325, L3100.5800, L3100.7250, L506.0250, L4500.0100, L3100.5600 ####[facility] [address] [place], [address] IMMUNOGLOB A QN 209 mg/dL Normal 90-386 [facility] Comment on above: Order Comment: Test( s) 755903-Olosocakahzk Antigenwas developed and its performance characteristicsdetermined by [email or web address] ([employer]). It has not been cleared or approvedby the Food and Drug Administration.N Performed By: #### L 3100.7050, L3200.1600, L3300.0450, L501.86218, L3410.2400, L5500.0550, L3100.5440, L501.6710, L504.2610, L503.0105, L3100.3425, L506.0400, L4500.2000, L2100.0000, L3200.0500, L501.9520, L3100.8408, L3100.5700, L4500.5000, L3300.1200, L101.9900, L3100.7325, L3100.5800, L3100.7250, L506.0250, L4500.0100, L3100.5600 ####[facility] [address] [place], [place], [id number] IMMUNOGLOB M QN 84 mg/dL Normal 20-172 [facility] Comment on above: Order Comment: Test( s) 155817-Qsmtrkbvuxab Antigenwas developed and its performance characteristicsdetermined by [email or web address] ([employer]). It has not been cleared or approvedby the Food and Drug Administration.N Performed By: #### L 3100.7050, L3200.1600, L3300.0450, L501.54465, L3410.2400, L5500.0550, L3100.5440, L501.6710, L504.2610, L503.0105, L3100.3425, L506.0400, L4500.2000, L2100.0000, L3200.0500, L501.9520, L3100.8408, L3100.5700, L4500.5000, L3300.1200, L101.9900, L3100.7325, L3100.5800, L3100.7250, L506.0250, L4500.0100, L3100.5600 ####[facility] [address] [place], [address] M-Mika Not Observed Normal Not Observed [facility] Comment on above: Order Comment: Test( s) 573488-Qxepdwebxjpt Antigenwas developed and its performance characteristicsdetermined by [employer]. It has not been cleared or approvedby the Food and Drug Administration.N Performed By: #### L 3100.7050, L3200.1600, L3300.0450, L501.07961, L3410.2400, L5500.0550, L3100.5440, L501.6710, L504.2610, L503.0105, L3100.3425, L506.0400, L4500.2000, L2100.0000, L3200.0500, L501.9520, L3100.8408, L3100.5700, L4500.5000, L3300.1200, L101.9900, L3100.7325, L3100.5800, L3100.7250, L506.0250, L4500.0100, L3100.5600 ####[facility] [address] [place], [address] NOTE: Comment Normal . [facility] Comment on above: Order Comment: Test( s) 290806-Vfnmdysegsvp Antigenwas developed and its performance characteristicsdetermined by [email or web address]). It has not been cleared or approvedby the Food and Drug Administration.N Result Comment: Prot ein electrophoresis scan will follow via computer, mail, or wire wheeler delivery. Performed By: #### L 3100.7050, L3200.1600, L3300.0450, L501.70271, L3410.2400, L5500.0550, L3100.5440, L501.6710, L504.2610, L503.0105, L3100.3425, L506.0400, L4500.2000, L2100.0000, L3200.0500, L501.9520, L3100.8408, L3100.5700, L4500.5000, L3300.1200, L101.9900, L3100.7325, L3100.5800, L3100.7250, L506.0250, L4500.0100, L3100.5600 ####[facility] [address] [place], [place], [phone] Protein [Mass/Vol] 7.3 g/dL Normal 6.0-8.5 [facility] Comment on above: Order Comment: Test( s) 990075-Ucsbftlulvnn Antigenwas developed and its performance characteristicsdetermined by [email or web address]). It has not been cleared or approvedby the Food and Drug Administration.N Performed By: #### L 3100.7050, L3200.1600, L3300.0450, L501.77346, L3410.2400, L5500.0550, L3100.5440, L501.6710, L504.2610, L503.0105, L3100.3425, L506.0400, L4500.2000, L2100.0000, L3200.0500, L501.9520, L3100.8408, L3100.5700, L4500.5000, L3300.1200, L101.9900, L3100.7325, L3100.5800, L3100.7250, L506.0250, L4500.0100, L3100.5600 ####[facility] [address] [place], [place], [phone] IgG Subclasseson 12-21-2024 IgG, SUBCLASS 1 735 mg/dL Normal 248-810 [facility] Comment on above: Order Comment: Test( s) 780149-Qqufskvwpeui Antigenwas developed and its performance characteristicsdetermined by [email or web address]). It has not been cleared or approvedby the Food and Drug Administration. Performed By: #### L 3100.7050, L3200.1600, L3300.0450, L501.69252, L3410.2400, L5500.0550, L3100.5440, L501.6710, L504.2610, L503.0105, L3100.3425, L506.0400, L4500.2000, L2100.0000, L3200.0500, L501.9520, L3100.8408, L3100.5700, L4500.5000, L3300.1200, L101.9900, L3100.7325, L3100.5800, L3100.7250, L506.0250, L4500.0100, L3100.5600 ####[facility] [address] [place], [place], [phone] IgG, SUBCLASS 2 243 mg/dL Normal 130-555 [facility] Comment on above: Order Comment: Test( s) 394824-Tidniyhzsuud Antigenwas developed and its performance characteristicsdetermined by [email or web address]). It has not been cleared or approvedby the Food and Drug Administration. Performed By: #### L 3100.7050, L3200.1600, L3300.0450, L501.09053, L3410.2400, L5500.0550, L3100.5440, L501.6710, L504.2610, L503.0105, L3100.3425, L506.0400, L4500.2000, L2100.0000, L3200.0500, L501.9520, L3100.8408, L3100.5700, L4500.5000, L3300.1200, L101.9900, L3100.7325, L3100.5800, L3100.7250, L506.0250, L4500.0100, L3100.5600 ####[facility] [address] [facility]. [place], [place], [phone] IgG, SUBCLASS 3 47 mg/dL Normal 15-102 [facility] Comment on above: Order Comment: Test( s) 030041-Lekvggzgcgfk Antigenwas developed and its performance characteristicsdetermined by [email or web address]). It has not been cleared or approvedby the Food and Drug Administration. Performed By: #### L 3100.7050, L3200.1600, L3300.0450, L501.38988, L3410.2400, L5500.0550, L3100.5440, L501.6710, L504.2610, L503.0105, L3100.3425, L506.0400, L4500.2000, L2100.0000, L3200.0500, L501.9520, L3100.8408, L3100.5700, L4500.5000, L3300.1200, L101.9900, L3100.7325, L3100.5800, L3100.7250, L506.0250, L4500.0100, L3100.5600 ####[facility] [address] [place], [place], [phone] IgG, SUBCLASS 4 117 mg/dL High 2-96 [facility] Comment on above: Order Comment: Test( s) 067847-Lawcfxjswnjb Antigenwas developed and its performance characteristicsdetermined by [email or web address]). It has not been cleared or approvedby the Food and Drug Administration. Performed By: #### L 3100.7050, L3200.1600, L3300.0450, L501.64538, L3410.2400, L5500.0550, L3100.5440, L501.6710, L504.2610, L503.0105, L3100.3425, L506.0400, L4500.2000, L2100.0000, L3200.0500, L501.9520, L3100.8408, L3100.5700, L4500.5000, L3300.1200, L101.9900, L3100.7325, L3100.5800, L3100.7250, L506.0250, L4500.0100, L3100.5600 ####[facility] [address] [place], [place], [phone]) IGG,QUANT 1289 mg/dL Normal 603-1613 [facility] Comment on above: Order Comment: Test( s) 122325-Ofhagetlaxlu Antigenwas developed and its performance characteristicsdetermined by [email or web address]). It has not been cleared or approvedby the Food and Drug Administration. Performed By: #### L 3100.7050, L3200.1600, L3300.0450, L501.10227, L3410.2400, L5500.0550, L3100.5440, L501.6710, L504.2610, L503.0105, L3100.3425, L506.0400, L4500.2000, L2100.0000, L3200.0500, L501.9520, L3100.8408, L3100.5700, L4500.5000, L3300.1200, L101.9900, L3100.7325, L3100.5800, L3100.7250, L506.0250, L4500.0100, L3100.5600 ####[facility] [address] [place], [place], [id number] Immunoglobulin Theo 5 IMMUNOGLOB E QN 97 IU/mL Normal 6-495 [facility] Comment on above: Order Comment: Test( s) 401419-Znhdqtggtnmg Antigenwas developed and its performance characteristicsdetermined by [email or web address]). It has not been cleared or approvedby the Food and Drug Administration. Performed By: #### L 3100.7050, L3200.1600, L3300.0450, L501.67288, L3410.2400, L5500.0550, L3100.5440, L501.6710, L504.2610, L503.0105, L3100.3425, L506.0400, L4500.2000, L2100.0000, L3200.0500, L501.9520, L3100.8408, L3100.5700, L4500.5000, L3300.1200, L101.9900, L3100.7325, L3100.5800, L3100.7250, L506.0250, L4500.0100, L3100.5600 ####[facility] [address] [place], [place], [address] L2100.0000on 12-21-2024 ACCA 18 units Normal 0-90 [facility] Comment on above: Order Comment: Test( s) 711011-Sobvvpbkgbpw Antigenwas developed and its performance characteristicsdetermined by [email or web address]). It has not been cleared or approvedby the Food and Drug Administration. Result Comment: Nega tive: <80 Equivocal: 80-90 Positive: >90 Performed By: #### L 3100.7050, L3200.1600, L3300.0450, L501.80154, L3410.2400, L5500.0550, L3100.5440, L501.6710, L504.2610, L503.0105, L3100.3425, L506.0400, L4500.2000, L2100.0000, L3200.0500, L501.9520, L3100.8408, L3100.5700, L4500.5000, L3300.1200, L101.9900, L3100.7325, L3100.5800, L3100.7250, L506.0250, L4500.0100, L3100.5600 ####[facility] [address] [place], [address] ALCA 2 units Normal 0-60 [facility] Comment on above: Order Comment: Test( s) 646921-Ruzrehyvdwel Antigenwas developed and its performance characteristicsdetermined by [email or web address]). It has not been cleared or approvedby the Food and Drug Administration. Result Comment: Nega tive:<55 Equivocal: 55-60 Positive: >60 Performed By: #### L 3100.7050, L3200.1600, L3300.0450, L501.51168, L3410.2400, L5500.0550, L3100.5440, L501.6710, L504.2610, L503.0105, L3100.3425, L506.0400, L4500.2000, L2100.0000, L3200.0500, L501.9520, L3100.8408, L3100.5700, L4500.5000, L3300.1200, L101.9900, L3100.7325, L3100.5800, L3100.7250, L506.0250, L4500.0100, L3100.5600 ####[facility] [address] [facility] [place], [address] AMCA 19 units Normal 0-100 [facility] Comment on above: Order Comment: Test( s) 320355-Mlybcubxltau Antigenwas developed and its performance characteristicsdetermined by [email or web address]). It has not been cleared or approvedby the Food and Drug Administration. Result Comment: Nega tive: <90 Equivocal: 90-100 Positive: >100 This test was developed and its performance characteristics determined by [email or web address]). It has not been cleared or approved by the Food and Drug Administration. The FDA has determined that such clearance or approval is not necessary. Performed By: #### L 3100.7050, L3200.1600, L3300.0450, L501.81885, L3410.2400, L5500.0550, L3100.5440, L501.6710, L504.2610, L503.0105, L3100.3425, L506.0400, L4500.2000, L2100.0000, L3200.0500, L501.9520, L3100.8408, L3100.5700, L4500.5000, L3300.1200, L101.9900, L3100.7325, L3100.5800, L3100.7250, L506.0250, L4500.0100, L3100.5600 ####[facility] [address] [facility]. [place], [place], [phone] Atypical pANCA Negative Normal Negative [facility] Comment on above: Order Comment: Test( s) 665646-Pgfzpwgaghxu Antigenwas developed and its performance characteristicsdetermined by [email or web address]). It has not been cleared or approvedby the Food and Drug Administration. Performed By: #### L 3100.7050, L3200.1600, L3300.0450, L501.77548, L3410.2400, L5500.0550, L3100.5440, L501.6710, L504.2610, L503.0105, L3100.3425, L506.0400, L4500.2000, L2100.0000, L3200.0500, L501.9520, L3100.8408, L3100.5700, L4500.5000, L3300.1200, L101.9900, L3100.7325, L3100.5800, L3100.7250, L506.0250, L4500.0100, L3100.5600 ####[facility] [address] [facility]. [place], [place], [address] COMMENT Comment Normal . [facility] Comment on above: Order Comment: Test( s) 650370-Aauuqzuybkvh Antigenwas developed and its performance characteristicsdetermined by [employer]. It has not been cleared or approvedby the Food and Drug Administration. Result Comment: Kesha raquel is not suggestive of Inflammatory Bowel Disease Performed By: #### L 3100.7050, L3200.1600, L3300.0450, L501.02691, L3410.2400, L5500.0550, L3100.5440, L501.6710, L504.2610, L503.0105, L3100.3425, L506.0400, L4500.2000, L2100.0000, L3200.0500, L501.9520, L3100.8408, L3100.5700, L4500.5000, L3300.1200, L101.9900, L3100.7325, L3100.5800, L3100.7250, L506.0250, L4500.0100, L3100.5600 ####[facility] [address] [place], [address] Khoa 17 units Normal 0-50 [facility] Comment on above: Order Comment: Test( s) 588877-Kligobdyfayg Antigenwas developed and its performance characteristicsdetermined by [email or web address]). It has not been cleared or approvedby the Food and Drug Administration. Result Comment: Nega tive: <45 Equivocal: 45-50 Positive: >50 Performed By: #### L 3100.7050, L3200.1600, L3300.0450, L501.27464, L3410.2400, L5500.0550, L3100.5440, L501.6710, L504.2610, L503.0105, L3100.3425, L506.0400, L4500.2000, L2100.0000, L3200.0500, L501.9520, L3100.8408, L3100.5700, L4500.5000, L3300.1200, L101.9900, L3100.7325, L3100.5800, L3100.7250, L506.0250, L4500.0100, L3100.5600 ####[facility] [address] [place], [address] Lupus Anticoagulant Compon 0 - aPTT Coag (Bld) [Time] 35.7 s Normal 0.0-43.5 [facility] Comment on above: Order Comment: Test( s) 281500-Xbibkrlrhagn Antigenwas developed and its performance characteristicsdetermined by [email or web address]). It has not been cleared or approvedby the Food and Drug Administration. Performed By: #### L 3100.7050, L3200.1600, L3300.0450, L501.88497, L3410.2400, L5500.0550, L3100.5440, L501.6710, L504.2610, L503.0105, L3100.3425, L506.0400, L4500.2000, L2100.0000, L3200.0500, L501.9520, L3100.8408, L3100.5700, L4500.5000, L3300.1200, L101.9900, L3100.7325, L3100.5800, L3100.7250, L506.0250, L4500.0100, L3100.5600 ####[facility] [address] [place], [place], [id number] DILUTE PT (dPT) 34.9 sec Normal 0.0-47.6 [facility] Comment on above: Order Comment: Test( s) 140716-Zpplbeqacmfr Antigenwas developed and its performance characteristicsdetermined by [email or web address] ([employer]). It has not been cleared or approvedby the Food and Drug Administration. Performed By: #### L 3100.7050, L3200.1600, L3300.0450, L501.52329, L3410.2400, L5500.0550, L3100.5440, L501.6710, L504.2610, L503.0105, L3100.3425, L506.0400, L4500.2000, L2100.0000, L3200.0500, L501.9520, L3100.8408, L3100.5700, L4500.5000, L3300.1200, L101.9900, L3100.7325, L3100.5800, L3100.7250, L506.0250, L4500.0100, L3100.5600 ####[facility] [address] [facility] [place], [address] dPT Conf. Ratio 0.85 Ratio Normal 0.00-1.34 [facility] Comment on above: Order Comment: Test( s) 785302-Jsxmjppokiwg Antigenwas developed and its performance characteristicsdetermined by [email or web address] ([employer]). It has not been cleared or approvedby the Food and Drug Administration. Performed By: #### L 3100.7050, L3200.1600, L3300.0450, L501.78566, L3410.2400, L5500.0550, L3100.5440, L501.6710, L504.2610, L503.0105, L3100.3425, L506.0400, L4500.2000, L2100.0000, L3200.0500, L501.9520, L3100.8408, L3100.5700, L4500.5000, L3300.1200, L101.9900, L3100.7325, L3100.5800, L3100.7250, L506.0250, L4500.0100, L3100.5600 ####[facility] [address] [facility] [place], [address] DRVVT 35.2 sec Normal 0.0-47.0 [facility] Comment on above: Order Comment: Test( s) 789566-Snjkxcwzazts Antigenwas developed and its performance characteristicsdetermined by [email or web address] ([employer]). It has not been cleared or approvedby the Food and Drug Administration. Performed By: #### L 3100.7050, L3200.1600, L3300.0450, L501.68131, L3410.2400, L5500.0550, L3100.5440, L501.6710, L504.2610, L503.0105, L3100.3425, L506.0400, L4500.2000, L2100.0000, L3200.0500, L501.9520, L3100.8408, L3100.5700, L4500.5000, L3300.1200, L101.9900, L3100.7325, L3100.5800, L3100.7250, L506.0250, L4500.0100, L3100.5600 ####[facility] [address] [place], [place], [phone] Interpretation Comment: Normal . [facility] Comment on above: Order Comment: Test( s) 842411-Taislkwfbbln Antigenwas developed and its performance characteristicsdetermined by [email or web address] ([employer]). It has not been cleared or approvedby the Food and Drug Administration. Result Comment: No l upus anticoagulant was detected. Performed By: #### L 3100.7050, L3200.1600, L3300.0450, L501.69997, L3410.2400, L5500.0550, L3100.5440, L501.6710, L504.2610, L503.0105, L3100.3425, L506.0400, L4500.2000, L2100.0000, L3200.0500, L501.9520, L3100.8408, L3100.5700, L4500.5000, L3300.1200, L101.9900, L3100.7325, L3100.5800, L3100.7250, L506.0250, L4500.0100, L3100.5600 ####[facility] [address] [place], [address] THROMBIN TIME 18.5 sec Normal 0.0-23.0 [facility] Comment on above: Order Comment: Test( s) 318681-Rgozzfksjtrw Antigenwas developed and its performance characteristicsdetermined by [email or web address] ([employer]). It has not been cleared or approvedby the Food and Drug Administration. Performed By: #### L 3100.7050, L3200.1600, L3300.0450, L501.31175, L3410.2400, L5500.0550, L3100.5440, L501.6710, L504.2610, L503.0105, L3100.3425, L506.0400, L4500.2000, L2100.0000, L3200.0500, L501.9520, L3100.8408, L3100.5700, L4500.5000, L3300.1200, L101.9900, L3100.7325, L3100.5800, L3100.7250, L506.0250, L4500.0100, L3100.5600 ####[facility] [address] [place], [address] Protein C, Functionalon 11-29 PROTEIN C,FUNC 124 Normal 73-180 [facility] Comment on above: Order Comment: Test( s) 577333-Cqyuwntvtmaj Antigenwas developed and its performance characteristicsdetermined by [email or web address] ([employer]). It has not been cleared or approvedby the Food and Drug Administration. Result Comment: Perf ormed at: [facility] [address] [id number] Poll Clerk: Juno Rashid MD, Phone: [phone] Performed at: [facility] [email or web address] [id number] Poll Clerk: Alfred Fischer PhD, Phone: [phone] Performed at: [facility] [address] [place], [place] [id number] Poll Clerk: Patrick Guardado [facility], Phone: [phone] Performed By: #### L 3100.7050, L3200.1600, L3300.0450, L501.55003, L3410.2400, L5500.0550, L3100.5440, L501.6710, L504.2610, L503.0105, L3100.3425, L506.0400, L4500.2000, L2100.0000, L3200.0500, L501.9520, L3100.8408, L3100.5700, L4500.5000, L3300.1200, L101.9900, L3100.7325, L3100.5800, L3100.7250, L506.0250, L4500.0100, L3100.5600 ####[facility] [address] [facility]. [place], [place], [phone] Protein S Antigenon 12-21-19 25 PROTEIN S, FREE 93 Normal 61-136 [facility] Comment on above: Order Comment: Test( s) 558670-Jnfmujqzntnd Antigenwas developed and its performance characteristicsdetermined by [employer]. It has not been cleared or approvedby the Food and Drug Administration. Performed By: #### L 3100.7050, L3200.1600, L3300.0450, L501.34571, L3410.2400, L5500.0550, L3100.5440, L501.6710, L504.2610, L503.0105, L3100.3425, L506.0400, L4500.2000, L2100.0000, L3200.0500, L501.9520, L3100.8408, L3100.5700, L4500.5000, L3300.1200, L101.9900, L3100.7325, L3100.5800, L3100.7250, L506.0250, L4500.0100, L3100.5600 ####[facility] [address] [place], [phone]) PROTEIN S,TOTAL 65 Normal 60-150 [facility] Comment on above: Order Comment: Test( s) 629480-Itfxfzzvmnha Antigenwas developed and its performance characteristicsdetermined by [employer]. It has not been cleared or approvedby the Food and Drug Administration. Result Comment: This test was developed and its performance characteristics determined by [employer]. It has not been cleared or approved by the Food and Drug Administration. Performed By: #### L 3100.7050, L3200.1600, L3300.0450, L501.81985, L3410.2400, L5500.0550, L3100.5440, L501.6710, L504.2610, L503.0105, L3100.3425, L506.0400, L4500.2000, L2100.0000, L3200.0500, L501.9520, L3100.8408, L3100.5700, L4500.5000, L3300.1200, L101.9900, L3100.7325, L3100.5800, L3100.7250, L506.0250, L4500.0100, L3100.5600 ####[facility] [address] [place], [place], [address] Protein S, Functionalon 11-29 PROTEIN S, FUNC 78 Normal 63-140 [facility] Comment on above: Order Comment: Test( s) 532265-Mrqnqwcujnzk Antigenwas developed and its performance characteristicsdetermined by [employer] ([employer]). It has not been cleared or approvedby the Food and Drug Administration. Result Comment: Prot ein S activity may be falsely increased (masking an abnormal, low result) in patients receiving direct Xa inhibitor (e.g., rivaroxaban, apixaban, edoxaban) or a direct thrombin inhibitor (e.g., dabigatran) anticoagulant treatment due to assay interference by these drugs. Performed By: #### L 3100.7050, L3200.1600, L3300.0450, L501.36866, L3410.2400, L5500.0550, L3100.5440, L501.6710, L504.2610, L503.0105, L3100.3425, L506.0400, L4500.2000, L2100.0000, L3200.0500, L501.9520, L3100.8408, L3100.5700, L4500.5000, L3300.1200, L101.9900, L3100.7325, L3100.5800, L3100.7250, L506.0250, L4500.0100, L3100.5600 ####[facility] [address] [place], [place], [id number] AMENA Comprehensive Panelon ANTI-DNA (DS)AB <1 Normal 0-9 [facility] Comment on above: Result Comment: Nega tive <5 Equivocal 5 - 9 Positive >9 Performed By: #### L 3100.7050, L3200.1600, L3300.0450, L501.98087, L3410.2400, L5500.0550, L3100.5440, L501.6710, L504.2610, L503.0105, L3100.3425, L506.0400, L4500.2000, L2100.0000, L3200.0500, L501.9520, L3100.8408, L3100.5700, L4500.5000, L3300.1200, L101.9900, L3100.7325, L3100.5800, L3100.7250, L506.0250, L4500.0100, L3100.5600 ####[facility] [address] [facility] [address] [place], [place], [id number] ANTISCLERODERM <0.2 Normal 0.0-0.9 [facility] Comment on above: Performed By: #### L 3100.7050, L3200.1600, L3300.0450, L501.96830, L3410.2400, L5500.0550, L3100.5440, L501.6710, L504.2610, L503.0105, L3100.3425, L506.0400, L4500.2000, L2100.0000, L3200.0500, L501.9520, L3100.8408, L3100.5700, L4500.5000, L3300.1200, L101.9900, L3100.7325, L3100.5800, L3100.7250, L506.0250, L4500.0100, L3100.5600 ####[facility] [address] [facility]. [place], [place], [address] L5500.0550on 12-13-2024 BEEF <0.10 Normal Class 0 [facility] Comment on above: Performed By: #### L 3100.7050, L3200.1600, L3300.0450, L501.15957, L3410.2400, L5500.0550, L3100.5440, L501.6710, L504.2610, L503.0105, L3100.3425, L506.0400, L4500.2000, L2100.0000, L3200.0500, L501.9520, L3100.8408, L3100.5700, L4500.5000, L3300.1200, L101.9900, L3100.7325, L3100.5800, L3100.7250, L506.0250, L4500.0100, L3100.5600 ####[facility] [address] [facility] [place], [place], [id number] CHOCOLATE <0.10 Normal Class 0 [facility] Comment on above: Performed By: #### L 3100.7050, L3200.1600, L3300.0450, L501.66268, L3410.2400, L5500.0550, L3100.5440, L501.6710, L504.2610, L503.0105, L3100.3425, L506.0400, L4500.2000, L2100.0000, L3200.0500, L501.9520, L3100.8408, L3100.5700, L4500.5000, L3300.1200, L101.9900, L3100.7325, L3100.5800, L3100.7250, L506.0250, L4500.0100, L3100.5600 ####[facility] [address] [facility] [address] [place], [place], [id number] CODFISH <0.10 Normal Class 0 [facility] Comment on above: Performed By: #### L 3100.7050, L3200.1600, L3300.0450, L501.62035, L3410.2400, L5500.0550, L3100.5440, L501.6710, L504.2610, L503.0105, L3100.3425, L506.0400, L4500.2000, L2100.0000, L3200.0500, L501.9520, L3100.8408, L3100.5700, L4500.5000, L3300.1200, L101.9900, L3100.7325, L3100.5800, L3100.7250, L506.0250, L4500.0100, L3100.5600 ####[facility] [address] [place], [address] COMMENT Comment Normal . [facility] Comment on above: Result Comment: Renata walls of Specific IgE Class Description of Class ----- < 0.10 0 Negative 0.10 - 0.31 0/I Equivocal/Low 0.32 - 0.55 I Low 0.56 - 1.40 II Moderate 1.41 - 3.90 III High 3.91 - 19.00 IV Very High 19.01 - 100.00 V Very High >100.00 Very High Performed By: #### L 3100.7050, L3200.1600, L3300.0450, L501.66292, L3410.2400, L5500.0550, L3100.5440, L501.6710, L504.2610, L503.0105, L3100.3425, L506.0400, L4500.2000, L2100.0000, L3200.0500, L501.9520, L3100.8408, L3100.5700, L4500.5000, L3300.1200, L101.9900, L3100.7325, L3100.5800, L3100.7250, L506.0250, L4500.0100, L3100.5600 ####[facility] [address] [place], [address] CORN <0.10 Normal Class 0 [facility] Comment on above: Performed By: #### L 3100.7050, L3200.1600, L3300.0450, L501.73903, L3410.2400, L5500.0550, L3100.5440, L501.6710, L504.2610, L503.0105, L3100.3425, L506.0400, L4500.2000, L2100.0000, L3200.0500, L501.9520, L3100.8408, L3100.5700, L4500.5000, L3300.1200, L101.9900, L3100.7325, L3100.5800, L3100.7250, L506.0250, L4500.0100, L3100.5600 ####[facility] [address] [facility] [place], [address] EGG, WHOLE <0.10 Normal Class 0 [facility] Comment on above: Result Comment: Perf ormed at: [address] [id number] Poll Clerk: Alfred Fischer PhD, Phone: [phone] Performed at: [address] [id number] Poll Clerk: Juno Rashid MD, Phone: [phone] Performed By: #### L 3100.7050, L3200.1600, L3300.0450, L501.29409, L3410.2400, L5500.0550, L3100.5440, L501.6710, L504.2610, L503.0105, L3100.3425, L506.0400, L4500.2000, L2100.0000, L3200.0500, L501.9520, L3100.8408, L3100.5700, L4500.5000, L3300.1200, L101.9900, L3100.7325, L3100.5800, L3100.7250, L506.0250, L4500.0100, L3100.5600 ####[facility] [address] [facility] [place], [address] MILK (COW) <0.10 Normal Class 0 [facility] Comment on above: Performed By: #### L 3100.7050, L3200.1600, L3300.0450, L501.47627, L3410.2400, L5500.0550, L3100.5440, L501.6710, L504.2610, L503.0105, L3100.3425, L506.0400, L4500.2000, L2100.0000, L3200.0500, L501.9520, L3100.8408, L3100.5700, L4500.5000, L3300.1200, L101.9900, L3100.7325, L3100.5800, L3100.7250, L506.0250, L4500.0100, L3100.5600 ####[facility] [address] [place], [address] MUSSELS <0.10 Normal Class 0 [facility] Comment on above: Performed By: #### L 3100.7050, L3200.1600, L3300.0450, L501.45044, L3410.2400, L5500.0550, L3100.5440, L501.6710, L504.2610, L503.0105, L3100.3425, L506.0400, L4500.2000, L2100.0000, L3200.0500, L501.9520, L3100.8408, L3100.5700, L4500.5000, L3300.1200, L101.9900, L3100.7325, L3100.5800, L3100.7250, L506.0250, L4500.0100, L3100.5600 ####[facility] [address] [facility]. [place], [place], [id number] PEANUT <0.10 Normal Class 0 [facility] Comment on above: Performed By: #### L 3100.7050, L3200.1600, L3300.0450, L501.96652, L3410.2400, L5500.0550, L3100.5440, L501.6710, L504.2610, L503.0105, L3100.3425, L506.0400, L4500.2000, L2100.0000, L3200.0500, L501.9520, L3100.8408, L3100.5700, L4500.5000, L3300.1200, L101.9900, L3100.7325, L3100.5800, L3100.7250, L506.0250, L4500.0100, L3100.5600 ####[facility] [address] [place], [place], [address] PORK <0.10 Normal Class 0 [facility] Comment on above: Performed By: #### L 3100.7050, L3200.1600, L3300.0450, L501.34065, L3410.2400, L5500.0550, L3100.5440, L501.6710, L504.2610, L503.0105, L3100.3425, L506.0400, L4500.2000, L2100.0000, L3200.0500, L501.9520, L3100.8408, L3100.5700, L4500.5000, L3300.1200, L101.9900, L3100.7325, L3100.5800, L3100.7250, L506.0250, L4500.0100, L3100.5600 ####[facility] [address] [place], [place], [id number] SALMON <0.10 Normal Class 0 [facility] Comment on above: Performed By: #### L 3100.7050, L3200.1600, L3300.0450, L501.85056, L3410.2400, L5500.0550, L3100.5440, L501.6710, L504.2610, L503.0105, L3100.3425, L506.0400, L4500.2000, L2100.0000, L3200.0500, L501.9520, L3100.8408, L3100.5700, L4500.5000, L3300.1200, L101.9900, L3100.7325, L3100.5800, L3100.7250, L506.0250, L4500.0100, L3100.5600 ####[facility] [address] [facility]. [place], [place], [id number] SHRIMP 0.15 kU/L Abnormal Class 0/I [facility] Comment on above: Performed By: #### L 3100.7050, L3200.1600, L3300.0450, L501.31249, L3410.2400, L5500.0550, L3100.5440, L501.6710, L504.2610, L503.0105, L3100.3425, L506.0400, L4500.2000, L2100.0000, L3200.0500, L501.9520, L3100.8408, L3100.5700, L4500.5000, L3300.1200, L101.9900, L3100.7325, L3100.5800, L3100.7250, L506.0250, L4500.0100, L3100.5600 ####[facility] [address] [facility]. [place], [place], [address] SOYBEAN <0.10 Normal Class 0 [facility] Comment on above: Performed By: #### L 3100.7050, L3200.1600, L3300.0450, L501.28776, L3410.2400, L5500.0550, L3100.5440, L501.6710, L504.2610, L503.0105, L3100.3425, L506.0400, L4500.2000, L2100.0000, L3200.0500, L501.9520, L3100.8408, L3100.5700, L4500.5000, L3300.1200, L101.9900, L3100.7325, L3100.5800, L3100.7250, L506.0250, L4500.0100, L3100.5600 ####[facility] [address] [facility]. [place], [place], [id number] TUNA <0.10 Normal Class 0 [facility] Comment on above: Performed By: #### L 3100.7050, L3200.1600, L3300.0450, L501.74800, L3410.2400, L5500.0550, L3100.5440, L501.6710, L504.2610, L503.0105, L3100.3425, L506.0400, L4500.2000, L2100.0000, L3200.0500, L501.9520, L3100.8408, L3100.5700, L4500.5000, L3300.1200, L101.9900, L3100.7325, L3100.5800, L3100.7250, L506.0250, L4500.0100, L3100.5600 ####[facility] [address] [place], [address] WHEAT 7.23 kU/L Abnormal Class IV [facility] Comment on above: Performed By: #### L 3100.7050, L3200.1600, L3300.0450, L501.29416, L3410.2400, L5500.0550, L3100.5440, L501.6710, L504.2610, L503.0105, L3100.3425, L506.0400, L4500.2000, L2100.0000, L3200.0500, L501.9520, L3100.8408, L3100.5700, L4500.5000, L3300.1200, L101.9900, L3100.7325, L3100.5800, L3100.7250, L506.0250, L4500.0100, L3100.5600 ####[facility] [address] [place], [place], [id number] ASCA IgG abOrdered By: Zeus muonz Friend on 12-10-2024 Saccharomyces cerevisiae (Khoa)IgG 17 units 0-50 [facility] Comment on above: Negative: <45 Equivo quentin: 45-50 Positive: >50 Addendum DocumentOrdered By: Lee Friend on 12-10-2024 Serum Immunofixation Comments Comment . [facility] Comment on above: Protein electrophore sis scan will follow via computer,mail, or wire wheeler delivery. Albumin Elph [Mass/Vol]Order ed By: Lee Robles on 12-10-2024 Albumin [Mass/Vol] 4.4 g/dL 2.9-4.4 [facility] Alpha 1 globulin Elph [Mass/ Vol]Ordered By: Lee Robles on 12-10-2024 Cqxqn-1-Ejbzubzct (JACOB) 0.2 g/dL 0.0-0.4 [facility] Cukfm-3-Nrbkvomrm (JACOB) 0.5 g/dL 0.4-1.0 [facility] Antithrombin Ag IA Ql (PPP)O rdered By: Lee Robles on 12-10-2024 Anti-Thrombin III Antigen 120 % 72-124 [facility] Antithrombin actual/normal C hromogenic method (PPP) [Rel catalytic activity/Vol]Ordered By: Lee Robles on 12-10-2024 Functional Antithrombin III 118 % 75-135 [facility] Comment on above: Direct Xa inhibitor anticoagulants such as rivaroxaban,apixaban and edoxaban will lead to spuriously elevatedantithrombin activity levels possibly masking a deficiency. Atypical perinuclear antineu trophil cytoplasmic antibodies measurementOrdered By: Lee Robles on 12-10-2024 Atypical p-ANCA <1:20 titer Neg:<1:20 [facility] Comment on above: *Additional results available. Contact laboratory/see report*The atypical pANCA pattern has been observed in asignificant percentage of patients with ulcerative colitis,primary sclerosing cholangitis and autoimmune hepatitis. Beef IgE Qn (S)Ordered By: Eugenio Robles on 12-10-2024 Beef Allergen (RAST) <0.10 kU/L Class 0 [facility] Beta globulin Elph [Mass/Vol ]Ordered By: Lee Robles on 12-10-2024 Beta-Globulins (JACOB) 1.0 g/dL 0.7-1.3 [facility] Blood or tissue coagulation factor II targeted mutation analysis by molecular geneticOrdered By: Lee Robles on 12-10-2024 F2 gene targeted mutation analysis [employer] Nom (Bld/Tiss) Comment . [facility] Comment on above: Result: c.*97G>A - N ot DetectedThis result is not associated with an increased risk for venousthromboembolism. See Additional Clinical Information andComments.Additional Clinical Information:Venous thromboembolism is a multifactorial disease influenced bygenetic, environmental, and circumstantial risk factors. The c.*97G>Avariant in the F2 gene is a genetic risk factor for venousthromboembolism. Heterozygous carriers have a 2- to 4-fold increasedrisk for venous thromboembolism. Homozygotes for the c.*97G>A variantare rare. The annual risk of VTE in homozygotes has been reported ricky 1.1%/year. Individuals who carry both a c.*97G>A variant in theF2 gene and a c.1601G>A (p. [id number]) variant in the F5 gene(commonly referred to as Factor V Leiden) have an approximately 20-fold increased risk for venous thromboembolism. Risks are likely ricky even higher in more complex genotype combinations involving theF2 c.*97G>A variant and Factor V Leiden (PMID: 59854775). Additionalrisk factors include but are not limited to: deficiency of protein C,protein S, or antithrombin III, age, male sex, personal or familyhistory of deep vein thromboembolism, smoking, surgery, prolongedimmobilization, malignant neoplasm, tamoxifen treatment, raloxifenetreatment, oral contraceptive use, hormone replacement therapy, andpregnancy. Management of thrombotic risk and thrombotic events shouldfollow established guidelines and fit the clinical circumstance. Thisresult cannot predict the occurrence or recurrence of a thromboticevent.Comments:Genetic counseling is recommended to discuss the potential clinicalimplications of positive results, as well as recommendations fortesting family members.Genetic Coordinators are available for health care providers to discussresults at [phone] Details:Variant analyzed: c.*97G>A, previously referred to as [id number]/Limitations:DNA analysis of the F2 gene (NM_000506.5) was performed by PCRamplification followed by restriction enzyme analysis. The diagnosticsensitivity is >99%. Results must be combined with clinicalinformation for the most accurate interpretation. Molecular-basedtesting is highly accurate, but as in any laboratory test, diagnosticerrors may occur. False positive or false negative results may occurfor reasons that include genetic variants, blood transfusions, bonemarrow transplantation, somatic or tissue-specific mosaicism,mislabeled samples, or erroneous representation of familyrelationships.This test was developed and its performance characteristics determinedby [employer] ([employer]). It has not been cleared or approved by the Food and DrugAdministration.References:Hector S, Maribel WAGONER, Aaron R, Brendon WW, Amari JH; [employer] ProfessionalPractice and Guidelines Committee. Addendum: [place] [employer] consensus statement on factor V Leiden mutationtesting. [employer] Med. 2020Dec 30. doi: 10.1038/o65833-889-67787-k.PMID: 17575207.Cherri CANAS. Prothrombin Thrombophilia. 2005May 21[Updated 2020Dec 01]. In: Fer MP, Massimo HH, Shaka RA, et al.,editors. Michael(R) [Internet]. [place] ([place]): [facility]; 8983-1717. Available from:https://www.ncbi.nlm.nih.gov/books/ZIJ9269/Bhavesh S, Maribel WAGONER, Sin X, Jeremie B, Yanira EB, Berna P, Aliza CS;[employer] Laboratory Loop Drier Operator Committee. Venous thromboembolismlaboratory testing (factor V Leiden and factor II c.*97G>A),2018 update: a technical standard of the [employer] ([employer]). [employer] Med. 2018 Sep;20(12):5347-2461.doi: 10.1038/e12804-674-5666-n. Epub 2017Aug 01. PMID: 92031765. C-reactive protein measureme nt by high sensitivity methodOrdered By: Lee Friend on 12-10-2024 C-Reactive Protein Extended Range < 2.90 mg/L 0.0-3.0 [facility] Comment on above: C-Reactive Protein ( CRP) provides useful information for thediagnosis, therapy and monitoring of inflammatory processesand associated diseases. For the evaluation of Relative Riskfor Cardiovascular Disease, a High Sensitivity CRP (HSCRP)should be ordered. CRPon 12-10-2024 C-REACTIVE PROT < 2.90 Normal 0.0-3.0 [facility] Comment on above: Result Comment: C-Re active Protein (CRP) provides useful information for the diagnosis, therapy and monitoring of inflammatory processes and associated diseases. For the evaluation of Relative Risk for Cardiovascular Disease, a High Sensitivity CRP (HSCRP) should be ordered. Performed By: #### L 3100.7050, L3200.1600, L3300.0450, L501.29101, L3410.2400, L5500.0550, L3100.5440, L501.6710, L504.2610, L503.0105, L3100.3425, L506.0400, L4500.2000, L2100.0000, L3200.0500, L501.9520, L3100.8408, L3100.5700, L4500.5000, L3300.1200, L101.9900, L3100.7325, L3100.5800, L3100.7250, L506.0250, L4500.0100, L3100.5600 ####[facility] [address] [place], [address] Cardiolipin IgA QnOrdered By : Lee Robles on 12-10-2024 Anti-Cardiolipin IgA Antibody < 9 APL U/mL 0-11 [facility] Comment on above: Negative: <12 Indete rminate: 12 - 20 Low-Med Positive: >20 - 80 High Positive: >80 Cardiolipin IgG IA Qn (S)Ord ered By: Lee Robles on 12-10-2024 Anti-Cardiolipin IgG Antibody < 9 GPL U/mL 0-14 [facility] Comment on above: Negative: <15 Indete rminate: 15 - 20 Low-Med Positive: >20 - 80 High Positive: >80 Centromere B antibody assayO rdered By: Lee Robles on 12-10-2024 Centromere B Antibody <0.2 AI 0.0-0.9 [facility] Comment on above: Previous reported re sult: TNP AIEdited by: EUNICE on 12/13/24:1408 AMENDED REPORT 12/13/241407 ANTI-CENT B previously reported as: Test not performed Chitobioside IgA IA QnOrdere d By: Lee Robles on 12-10-2024 Chitobioside Carbohydrat (ACCA) IgA 18 units 0-90 [facility] Comment on above: Negative: <80 Equivo quentin: 80-90 Positive: >90 Chitobioside IgA antibody as sayOrdered By: Lee Robles on 12-10-2024 Chitobioside IgA IA Qn 18 units 0-90 [facility] Comment on above: Negative: <80 Equivo quentin: 80-90 Positive: >90 Chocolate IgE Qn (S)Ordered By: Lee Robles on 12-10-2024 Chocolate Allergen (RAST) <0.10 kU/L Class 0 [facility] Chromatin antibody assayOrde red By: Lee Robles on 12-10-2024 Antichromatin Antibodies <0.2 AI 0.0-0.9 [facility] Comment on above: Previous reported re sult: TNP AIEdited by: EUNICE on 12/13/24:1408 AMENDED REPORT 12/13/24 1408 ANTICHROMATIN previously reported as: Test not performed Clotting factor V Leiden mut ation detectionOrdered By: Lee Robles on 12-10-2024 Factor V Leiden Mutation Comment . [facility] Comment on above: Result: c.1601G>A (p .[id number]) - Not DetectedThis result is not associated with an increased risk for venousthromboembolism. See Additional Clinical Information andComments.Additional Clinical Information:Venous thromboembolism is a multifactorial diseaseinfluenced by genetic, environmental, and circumstantialrisk factors. The c.1601G>A (p. [id number]) variant in theF5 gene, commonly referred to as Factor V Leiden, is agenetic risk factor for venous thromboembolism.Heterozygous carriers of this variant have a 6- to 8-foldincreased risk for venous thromboembolism. Individualshomozygous for this variant (ie, with a copy of the varianton each chromosome) have an approximately 80-fold increasedrisk for venous thromboembolism. Individuals who carry heavenly c.*97G>A variant in the F2 gene and Factor V Leiden havean approximately 20-fold increased risk for venousthromboembolism. Risks are likely to be even higher in morecomplex genotype combinations involving the F2 c.*97G>Avariant and Factor V Leiden (PMID: [id number]). Additionalrisk factors include but are not limited to: deficiency ofprotein C, protein S, or antithrombin III, age, male sex,personal or family history of deep vein thromboembolism,smoking, surgery, prolonged immobilization, malignantneoplasm, tamoxifen treatment, raloxifene treatment, oralcontraceptive use, hormone replacement therapy, andpregnancy. Management of thrombotic risk and thromboticevents should follow established guidelines and fit theclinical circumstance. This result cannot predict theoccurrence or recurrence of a thrombotic event.Comment:Genetic counseling is recommended to discuss thepotential clinical implications of positive results, aswell as recommendations for testing family members.Genetic Coordinators are available for health careproviders to discuss results at [phone] Details:Variant Analyzed: c.1601G>A (p. [id number]), referred toas Factor V LeidenMethods/Limitations:DNA analysis of the F5 gene (NM_000130.5) was performedby PCR amplification followed by restriction enzymeanalysis. The diagnostic sensitivity is >99%. Results mustbe combined with clinical information for the most accurateinterpretation. Molecular-based testing is highly accurate,but as in any laboratory test, diagnostic errors may occur.False positive or false negative results may occur forreasons that include genetic variants, blood transfusions,bone marrow transplantation, somatic or tissue-specificmosaicism, mislabeled samples, or erroneous representationof family relationships.This test was developed and its performance characteristicsdetermined by [employer] ([employer]). It has not been cleared orapproved by the Food and Drug Administration.References:Hector S, Maribel AK, Aaron R, Brendon WW, Amari JH; ACMGProfessional Practice and Guidelines Committee. Addendum:[employer] of Medical Genetics consensus statement onfactor V Leiden mutation testing. Mignon Med. 2020Dec 30.doi: 10.1038/[id number]-y. PMID: 30344145.Cherri CANAS. Factor V Leiden Thrombophilia. 1998March 10(Updated 2017Oct 31). In: Fer MP, Massimo HH, Shaka RA,et al., editors. GeneReviews(R) (Internet). [place] ([place]):[facility]; 1421-2475. Availablefrom: https://www.ncbi.nlm.nih.gov/books/IQI0148/Bhavesh S, Maribel AK, Sin X, Jeremie B, Yanira EB, Berna P,Aliza CS; [facility] Laboratory Loop Drier Operator Committee.Venous thromboembolism laboratory testing (factor V Leidenand factor II c.*97G>A), 2018 update: a technical standardof the [place] [employer] and [employer]omics(ACMG). Mignon Med. 2018 Sep;20(12):3994-7877. doi:10.1038/[id number]-y. Epub 2017Aug 01. PMID: 51510973. Codfish IgE Qn (S)Ordered By : Lee Robles on 12-10-2024 Codfish Allergen (RAST) <0.10 kU/L Class 0 [facility] Complement C3 assayOrdered B y: Lee Robles on 12-10-2024 Complement C3 130 mg/dL 82-167 [facility] Complement C4 [Mass/Vol]Orde red By: Lee Robles on 12-10-2024 Complement C4 20 mg/dL 12-38 [facility] Chamisal IgE Qn (S)Ordered By: Eugenio Robles on 12-10-2024 Chamisal Allergen (RAST) <0.10 kU/L Class 0 [facility] Cow milk IgE Qn (S)Ordered B y: Lee Robles on 12-10-2024 Cow's Milk Allergen <0.10 kU/L Class 0 [facility] DNA double strand Ab Qn (S)O rdered By: Lee Robles on 12-10-2024 Anti-Double Strand DNA Antibody <1 IU/mL 0-9 [facility] Comment on above: Negative <5 Equivoca l 5 - 9 Positive >9 Dilute Kirill's viper venom timeOrdered By: Lee Robles on 12-10-2024 dRVVT Coag (PPP) [Time] 35.2 s 0.0-47.0 [facility] Dilute prothrombin time rati o confirmationOrdered By: Lee Robles on 12-10-2024 Prothrombin Time Ratio 0.85 Ratio 0.00-1.34 [facility] Direct serum free thyroxine (FT4) measurementOrdered By: Lee Robles on 12-10-2024 Free T4 [Mass/Vol] 1.09 ng/dL 0.76-1.46 [facility] Endomysial IgA antibody assa yOrdered By: Lee Robles on 12-10-2024 Endomysial IgA Antibody Negative Negative [facility] Erythrocyte Sed Rateon 12-10 SED RATE 1 mm/hr Normal 0-20 [facility] Comment on above: Performed By: #### L 3100.7050, L3200.1600, L3300.0450, L501.46488, L3410.2400, L5500.0550, L3100.5440, L501.6710, L504.2610, L503.0105, L3100.3425, L506.0400, L4500.2000, L2100.0000, L3200.0500, L501.9520, L3100.8408, L3100.5700, L4500.5000, L3300.1200, L101.9900, L3100.7325, L3100.5800, L3100.7250, L506.0250, L4500.0100, L3100.5600 ####[facility] [address] [place], [address] Erythrocyte sedimentation ra teOrdered By: Lee Robles on 12-10-2024 ESR (Bld) [Velocity] 1 mm/h 0-20 [facility] F2 gene targeted mutation an alysis Molgen Nom (Bld/Tiss)Ordered By: Lee Robles on 12-10-2024 Factor II DNA Analysis Comment . [facility] Comment on above: Result: c.*97G>A - N ot DetectedThis result is not associated with an increased risk for venousthromboembolism. See Additional Clinical Information andComments.Additional Clinical Information:Venous thromboembolism is a multifactorial disease influenced bygenetic, environmental, and circumstantial risk factors. The c.*97G>Avariant in the F2 gene is a genetic risk factor for venousthromboembolism. Heterozygous carriers have a 2- to 4-fold increasedrisk for venous thromboembolism. Homozygotes for the c.*97G>A variantare rare. The annual risk of VTE in homozygotes has been reported ricky 1.1%/year. Individuals who carry both a c.*97G>A variant in theF2 gene and a c.1601G>A (p. Erw888Gjy) variant in the F5 gene(commonly referred to as Factor V Leiden) have an approximately 20-fold increased risk for venous thromboembolism. Risks are likely ricky even higher in more complex genotype combinations involving theF2 c.*97G>A variant and Factor V Leiden (PMID: 71444804). Additionalrisk factors include but are not limited to: deficiency of protein C,protein S, or antithrombin III, age, male sex, personal or familyhistory of deep vein thromboembolism, smoking, surgery, prolongedimmobilization, malignant neoplasm, tamoxifen treatment, raloxifenetreatment, oral contraceptive use, hormone replacement therapy, andpregnancy. Management of thrombotic risk and thrombotic events shouldfollow established guidelines and fit the clinical circumstance. Thisresult cannot predict the occurrence or recurrence of a thromboticevent.Comments:Genetic counseling is recommended to discuss the potential clinicalimplications of positive results, as well as recommendations fortesting family members.Genetic Coordinators are available for health care providers to discussresults at [phone] Details:Variant analyzed: c.*97G>A, previously referred to as [id number]/Limitations:DNA analysis of the F2 gene (NM_[id number]) was performed by PCRamplification followed by restriction enzyme analysis. The diagnosticsensitivity is >99%. Results must be combined with clinicalinformation for the most accurate interpretation. Molecular-basedtesting is highly accurate, but as in any laboratory test, diagnosticerrors may occur. False positive or false negative results may occurfor reasons that include genetic variants, blood transfusions, bonemarrow transplantation, somatic or tissue-specific mosaicism,mislabeled samples, or erroneous representation of familyrelationships.This test was developed and its performance characteristics determinedby [facility]. It has not been cleared or approved by the Food and DrugAdministration.References:Hector Rajan, Maribel WAGONER, Aaron R, Brendon WW, Amari JH; ACMG ProfessionalPractice and Guidelines Committee. Addendum: [place] [employer] of[employer] consensus statement on factor V Leiden mutationtesting. Mignon Med. 2020Dec 30. doi: 10.1038/[id number].PMID: 65527604.Cherri CANAS. Prothrombin Thrombophilia. 2005May 21[Updated 2020Dec 01]. In: eFr MP, Massimo HH, Shaka RA, et al.,editors. Michael(R) [Internet]. [place] ([place]): [facility]; 7642-4177. Available from:https://www.ncbi.nlm.nih.gov/books/VBW9127/Bhavesh S, Maribel WAGONER, Sin X, Jeremie B, Yanira EB, Berna P, Aliza CS;[employer] Laboratory Loop Drier Operator Committee. Venous thromboembolismlaboratory testing (factor V Leiden and factor II c.*97G>A),2018 update: a technical standard of the [place] [employer] MedicalGen[employer] and Genomics (ACMG). Mignon Med. 2018 Sep;20(12):4147-7800.doi: 10.1038/[id number]-w. Ep2017Aug 01. PMID: 28412870. Folates, (Folic Acid)on 11-28 FOLATES 18.20 ng/mL Normal 3.1-55.4 [facility] Comment on above: Order Comment: N Performed By: #### L 3100.7050, L3200.1600, L3300.0450, L501.32576, L3410.2400, L5500.0550, L3100.5440, L501.6710, L504.2610, L503.0105, L3100.3425, L506.0400, L4500.2000, L2100.0000, L3200.0500, L501.9520, L3100.8408, L3100.5700, L4500.5000, L3300.1200, L101.9900, L3100.7325, L3100.5800, L3100.7250, L506.0250, L4500.0100, L3100.5600 ####[facility] [address] [facility] [place], [address] Folic acid measurementOrdere d By: Lee Robles on 12-10-2024 Folate 18.20 ng/mL 3.1-55.4 [facility] Free T3on 12-10-2024 Free T3 [Mass/Vol] 2.9 pg/mL Normal 2.18-3.98 [facility] Comment on above: Performed By: #### L 3100.7050, L3200.1600, L3300.0450, L501.10451, L3410.2400, L5500.0550, L3100.5440, L501.6710, L504.2610, L503.0105, L3100.3425, L506.0400, L4500.2000, L2100.0000, L3200.0500, L501.9520, L3100.8408, L3100.5700, L4500.5000, L3300.1200, L101.9900, L3100.7325, L3100.5800, L3100.7250, L506.0250, L4500.0100, L3100.5600 ####[facility] [address] [facility]. [place], [place], [id number] Free J9Wbewgbg By: Lee acosta on 12-10-2024 Free T3 [Mass/Vol] 2.9 pg/mL 2.18-3.98 [facility] Free Triiodothyronine (T3) pg/dL 2.9 pg/mL 2.18-3.98 [facility] Functional protein C measure mentOrdered By: Lee Robles on 12-10-2024 Protein C actual/normal Chromogenic method (PPP) [Rel catalytic activity/Vol] 124 % 73-180 [facility] Comment on above: Performed at: [facility] Kapil mendenhall [address] [id number] Director: Juno Rashid MD, Phone: [phone] at: [facility] [place] [id number] Director: Alfred Fischer PhD, Phone: [phone] at: [facility] [id number] [place], [place] [id number] Director: Patrick Guardado [facility], Phone: [phone] Protein C actual/normal Chromogenic method (PPP) [Rel catalytic activity/Vol] Not Reportable [facility] Gamma globulin Elph [Mass/Vo l]Ordered By: Lee Robles on 12-10-2024 Gamma Globulins (JACOB) 1.2 g/dL 0.4-1.8 [facility] Gastroenterology Visit Repor ton 12-10-2024 Gastroenterology Visit Report [facility] Gastroenterology [address] [place] [address] OFFICE VISIT Date of Service: 12/10/24 MR#: [id number] Acct: [id number] Name: TERRIE ALLEN MEMO Rep #: [id number] 30 : 1980 Provider: Lee Robles DO Age/Sex: 44/M [place] [facility] [place] Status: Signed Intake Vital Signs 11/16/24 14:34 Height 6 ft 3 in Intake Visit Reasons: Issues since bowel resection Allergies No Known Allergies Allergy (Verified 11/16/24 14:29) Medications ???Medication ???Instructions ???Recorded ???Confirmed ???Type meloxicam 7.5 mg tablet 7.5 mg PO QDAY #90 tabs 11/16/24 0 12/10/24 Rx pantoprazole 40 mg tablet,delayed 40 mg PO QDAY #90 tabs 11/16/24 0 12/10/24 Rx release sucralfate 1 gram tablet (Carafate) 1 g PO BID #60 tabs 12/08/24 Rx PFSH Medical History Difficulty swallowing History of IBS Gastric reflux Anterior abdomen avulsion History of abdominal abscess Nonhealing surgical wound Superior mesenteric vein thrombosis Sepsis without acute organ dysfunction Collar bone fracture COVID-19 Surgical History History of surgical procedure History of ankle surgery History of open reduction and internal fixation (ORIF) procedure Status post right hemicolectomy S/P exploratory laparotomy H/O hernia repair Family History Mother Diabetes Kidney disease had mass, removed portion of it. Father Diabetes Cancer prostate Colon cancer 75 Grandmother Cancer stomach Social History adopted: No household members: spouse number of children: 1 current occupational status: employed current occupation: [employer]. pets and animals: Yes pets and animals: dog(s) sexually active: Yes Smoking Status: Never smoker Electronic Cigarette Use: not used alcohol intake: never substance use type: does not use diet: lactose free caffeine: Yes (1-2) Type: carbonated beverages frequency: does not exercise seatbelt use: always do you feel safe at home: Yes HPI HPI Details: TERRIE ALLEN, is a 44 M who presents to the office today for initial consult. abd/pelvis CT 6.7.24 Status post right hemicolectomy with postsurgical changes and improvement of the previously seen thick-walled fluid collection in the right lower quadrant. No new abnormality is seen EGD with Dr García 8.8.24 No gross lesions in the duodenal bulb, in the first portion of the duodenum and in the second portion of the duodenum. No specimens collected. Gastritis. Biopsied. Z-line irregular, 43 cm from the incisors. Biopsied. Texture changed, abnormal (rule out Heredia's esophagus) mucosa in the esophagus. Biopsied. The examination was otherwise normal. GET 2.7.25 normal 32 minutes abd/pelvis 2.10.25 The gallbladder is contracted and contains questionable gallstones. Mild right hydrocele. *BGI established 2.13.25 pt reports that 11 months ago he had intussusception, had emergency surgery on 01.10.24 to remove mass, part of the colon and small bowel. After first surgery he got an infection and went septic, had another surgery. After this he developed an internal abscess, was transferred to [place] for a LUZ drain to drain abscess. Pt reports that he was on IV and oral antibiotics until June of 2024. Pt reports that overall he is experiencing generalized malaise, decreased appetite, abdominal pain, and nausea mostly in the morning. Pt reports 3 soft bm per day; usually 1 hr after eating. Pt reports that he has been on sucralfate for a few weeks now and has not noticed an improvement in symptoms, but has noticed that he is having less frequent bowel movements and they are becoming more formed. ROS Const Constitutional: Positive for fatigue; No fever(s) or weight change ENT ENT: No difficulty swallowing Gastro GI: Positive for abdominal pain, bloating, change in bowel habits, diarrhea, heartburn, excessive flatus and nausea/dyspepsia; No belching, change in stool character, coffee ground emesis, constipation, cramping, difficulty swallowing, feeling full early, incontinent of stools, Vomiting blood/hematemesis, Blood in stool, loose stools, Black,tarry stools, pain with swallowing, vomiting or other Musc Musculoskeletal: Positive for back pain and stiffness; No joint pain Skin Skin: No yellowing of the eye or itchy eyes Psych Psychiatric: Positive for anxiety and No depression Endo Endocrine: Positive for fatigue; No weight change Aller/Imm Allergy/Immunologic: No itchy eyes Darren/Lymp Hematologic/Lymphatic: No easy bleeding or easy bruising Exam Const General: cooperative, healthy appearing, no a (more content not included)... Normal [facility] IgA [Mass/Vol]Ordered By: Ra gilson Robles on 12-10-2024 Immunoglobulin A 209 mg/dL 90-386 [facility] IgEOrdered By: Lee sierra on 12-10-2024 IgE 97 IU/mL 6-495 [facility] Immunoglobulin E 97 IU/mL 6-495 [facility] IgG [Mass/Vol]Ordered By: Ra gilson Robles on 12-10-2024 Immunoglobulin G Not Reportable [facility] Immunoglobulin G Total 1289 mg/dL 603-1613 [facility] IgG subclass 1 (S) [Mass/Vol ]Ordered By: Lee Robles on 12-10-2024 Immunoglobulin G1 735 mg/dL 248-810 [facility] IgG subclass 2 (S) [Mass/Vol ]Ordered By: Lee Robles on 12-10-2024 Immunoglobulin G2 243 mg/dL 130-555 [facility] IgG subclass 3 (S) [Mass/Vol ]Ordered By: Lee Robles on 12-10-2024 Immunoglobulin G3 47 mg/dL 15-102 [facility] Immunoglobulin G4 measuremen tOrdered By: Lee Robles on 12-10-2024 Immunoglobulin G4 117 mg/dL High 2-96 [facility] Immunoglobulin M measurement Ordered By: Lee Robles on 12-10-2024 Immunoglobulin M 84 mg/dL 20-172 [facility] Interpretation IEP [Interp]O rdered By: Lee Robles on 12-10-2024 Immunofixation Screen Comment . [facility] Comment on above: No monoclonality det ected. Interpretation of lupus anti coagulant assayOrdered By: Lee Robles on 12-10-2024 Lupus Anticoagulant Interpretation Comment: . [facility] Comment on above: No lupus anticoagula nt was detected. Interpretation of serum or p lasma protein pattern by immunofixation (narrative resultOrdered By: Lee Robles on 12-10-2024 Protein Fractions Immunofixation Fede [Interp] Not Observed g/dL Not Observed [facility] Greta-1 antibody assayOrdered B y: Lee Robles on 12-10-2024 GRETA-1 Antibody <0.2 AI 0.0-0.9 [facility] Comment on above: Previous reported re sult: TNP AIEdited by: EUNICE on 12/13/24:1408 AMENDED REPORT 12/13/24 1408 ANTI-GRETA previously reported as: Test not performed LDHon 12-10-2024 LDH 167 U/L Normal 87-241 [facility] Comment on above: Order Comment: 1 Performed By: #### L 3100.7050, L3200.1600, L3300.0450, L501.02944, L3410.2400, L5500.0550, L3100.5440, L501.6710, L504.2610, L503.0105, L3100.3425, L506.0400, L4500.2000, L2100.0000, L3200.0500, L501.9520, L3100.8408, L3100.5700, L4500.5000, L3300.1200, L101.9900, L3100.7325, L3100.5800, L3100.7250, L506.0250, L4500.0100, L3100.5600 ####[facility] [address] [place], [address] Laboratory - Miscellaneous t estsOrdered By: Lee Robles on 12-10-2024 Laboratory comment Fede (Report) Comment . [facility] Comment on above: Pattern is not sugge stive of Inflammatory Bowel Disease Service comment (Unsp spec) [Interp] Comment . [facility] Comment on above: Levels of Specific I gE Class Description of Class ----- < 0.10 0 Negative 0.10 - 0.31 0/I Equivocal/Low 0.32 - 0.55 I Low 0.56 - 1.40 II Moderate 1.41 - 3.90 III High 3.91 - 19.00 IV Very High 19.01 - 100.00 V Very High >100.00 Very High Laboratory comment Fede (Repo rt)Ordered By: Lee Robles on 12-10-2024 IBD Serology Comment Comment . [facility] Comment on above: Pattern is not sugge stive of Inflammatory Bowel Disease Lactate dehydrogenase (LDH) measurementOrdered By: Lee Robles on 12-10-2024 LDH [Catalytic activity/Vol] 167 U/L 87-241 [facility] Laminaribioside IgG IA QnOrd ered By: Lee Robles on 12-10-2024 Laminaribioside Carbohyd (ALCA) IgG 2 units 0-60 [facility] Comment on above: Negative:<55 Equivoc al: 55-60 Positive: >60 Laminaribioside carbohydrate IgG antibody assayOrdered By: Lee Robles on 12-10-2024 Laminaribioside IgG IA Qn 2 units 0-60 [facility] Comment on above: Negative:<55 Equivoc al: 55-60 Positive: >60 Lupus anticoagulant neutrali zation dilute phospholipid time in platelet poor plasmaOrdered By: Lee Robles on 12-10-2024 Prothrombin Time Diluted 34.9 sec 0.0-47.6 [facility] Lupus anticoagulant-sensitiv e activated partial thromboplastin timeOrdered By: Lee Robles on 12-10-2024 Lupus Anticoagulant APTT 35.7 sec 0.0-43.5 [facility] Mannobioside IgG IA QnOrdere d By: Lee Robles on 12-10-2024 Mannobioside Carbohydrat (AMCA) IgG 19 units 0-100 [facility] Comment on above: Negative: <90 Equivo quentin: 90-100 Positive: >100 This test was developed and its performance characteristics determined by [employer] ([employer]). It has not been cleared or approved by the Food and Drug Administration. The FDA has determined that such clearance or approval is not necessary. Neutrophil cytoplasmic Ab.cl assic Qn (S)Ordered By: Lee Robles on 12-10-2024 Cytoplasmic ANCA (c-ANCA) Antibody <1:20 titer Neg:<1:20 [facility] Neutrophil cytoplasmic Ab.pe rinuclear IF (S) [Titer]Ordered By: Lee Robles on 12-10-2024 Perinuclear ANCA (p-ANCA) Antibody <1:20 titer Neg:<1:20 [facility] Comment on above: The presence of posi tive fluorescence exhibiting P-ANCA orC-ANCA patterns alone is not specific for the diagnosis ofWegener's Granulomatosis (WG) or microscopic polyangiitis.Decisions about treatment should not be based solely onANCA IFA results. The International ANCA Group Consensusrecommends follow up testing of positive sera with both CA-3 and MPO-ANCA enzyme immunoassays. As many as 5% serumsamples are positive only by EIA. Ref. AM J Clin Zmesqc0394;111:507-513. No Panel InformationOrdered By: Lee Robles on 12-10-2024 Addendum Document Comment . [facility] Comment on above: Protein electrophore sis scan will follow via computer,mail, or wire wheeler delivery. Peanut IgE Qn (S)Ordered By: Lee Robles on 12-10-2024 Peanut Allergen (RAST) <0.10 kU/L Class 0 [facility] Platelet poor plasma antithr ombin actual/normal ratio by chromogenic method (relativeOrdered By: Lee Robles on 12-10-2024 Antithrombin actual/normal Chromogenic method (PPP) [Rel catalytic activity/Vol] 118 % 75-135 [facility] Comment on above: Direct Xa inhibitor anticoagulants such as rivaroxaban,apixaban and edoxaban will lead to spuriously elevatedantithrombin activity levels possibly masking a deficiency. Platelet poor plasma antithr ombin antigen detection by immunoassayOrdered By: Lee Robles on 12-10-2024 Antithrombin Ag IA Ql (PPP) 120 % 72-124 [facility] Platelet poor plasma protein S actual/normal ratio (relative time)Ordered By: Lee Robles on 12-10-2024 Protein S actual/normal Coag (PPP) [Relative time] 78 % 63-140 [facility] Comment on above: Protein S activity m ay be falsely increased (masking anabnormal, low result) in patients receiving direct Xainhibitor (e.g., rivaroxaban, apixaban, edoxaban) or adirect thrombin inhibitor (e.g., dabigatran) anticoagulanttreatment due to assay interference by these drugs. Pork IgE Qn (S)Ordered By: Eugenio Robles on 12-10-2024 Pork Allergen (RAST) <0.10 kU/L Class 0 [facility] Protein C actual/normal Legal Adviser mogenic method (PPP) [Rel catalytic activity/Vol]Ordered By: Lee Robles on 12-10-2024 Functional Protein C 124 % 73-180 [facility] Comment on above: Performed at: - [address] [id number] Director: Juno Rashid MD, Phone: [phone] at: [facility] [employer] [address] [id number] Director: Alfred Fischer PhD, Phone: [phone] at: - [facility] [id number] [place], [place] [id number] Director: Patrick Guardado [facility], Phone: [phone] Protein C Functional Activity Not Reportable [facility] Protein Fractions Immunofixa tion Fede [Interp]Ordered By: Lee Robles on 12-10-2024 M-Mika (JACOB) Not Observed g/dL Not Observed [facility] Protein S Coag Qn (PPP)Order ed By: Lee Robles on 12-10-2024 Total Protein S 65 % 60-150 [facility] Comment on above: This test was develo ped and its performance characteristicsdetermined by [facility]. It has not been cleared orapproved by the Food and Drug Administration. Protein S Free Ag IA Qn (PPP )Ordered By: Lee Robles on 12-10-2024 Free Protein S 93 % 61-136 [facility] Protein S actual/normal Coag (PPP) [Relative time]Ordered By: Lee Robles on 12-10-2024 Functional Protein S 78 % 63-140 [facility] Comment on above: Protein S activity m ay be falsely increased (masking anabnormal, low result) in patients receiving direct Xainhibitor (e.g., rivaroxaban, apixaban, edoxaban) or adirect thrombin inhibitor (e.g., dabigatran) anticoagulanttreatment due to assay interference by these drugs. Protein S measurement in elicia telet poor plasma by coagulation assay (units/volume)Ordered By: Lee Robles on 12-10-2024 Protein S Coag Qn (PPP) 65 % 60-150 [facility] Comment on above: This test was develo ped and its performance characteristicsdetermined by [facility]. It has not been cleared orapproved by the Food and Drug Administration. Protein S, freeOrdered By: Eugenio Robles on 12-10-2024 Protein S Free Ag IA Qn (PPP) 93 % 61-136 [facility] RN DOCUMENTATION SPECIALIST abOrdered By: Lee Lim iend on 12-10-2024 RN DOCUMENTATION SPECIALIST Antibody <0.2 AI 0.0-0.9 [facility] Comment on above: Previous reported re sult: TNP AIEdited by: EUNICE on 12/13/24:1408 AMENDED REPORT 12/13/24 1408 RN DOCUMENTATION SPECIALIST Ab previously reported as: Test not performed SCL-70 extractable nuclear A b Qn (S)Ordered By: Lee Robles on 12-10-2024 Scl-70 (Scleroderma) Antibody <0.2 AI 0.0-0.9 [facility] [facility]-A IgG antibody assayOrder ed By: Leechito Robles on 12-10-2024 SS-A/Ro IgG Antibody < 0.2 AI 0.0-0.9 [facility] Comment on above: Previous reported re sult: TNP AIEdited by: EUNICE on 12/13/24:1408 AMENDED REPORT 12/13/241407 Anti-SS-A previously reported as: Test not performed SS-B IgG antibody assayOrder ed By: Lee Robles on 12-10-2024 SS-B/La IgG Antibody < 0.2 AI 0.0-0.9 [facility] Comment on above: Previous reported re sult: TNP AIEdited by: EUNICE on 12/13/24:1408 AMENDED REPORT 12/13/241407 Anti-SS-B previously reported as: Test not performed [place] IgE Qn (S)Ordered By: Lee Robles on 12-10-2024 [place] Allergen IgE Antibody <0.10 kU/L Class 0 [facility] Serum DNA double strand anti body assay (units/volume)Ordered By: Lee Robles on 12-10-2024 DNA double strand Ab Qn (S) [IU]/mL 0-9 [facility] Comment on above: Negative <5 Equivoca l 5 - 9 Positive >9 Serum IgG subclass 1 measure ment (mass/volume)Ordered By: Lee Robles on 12-10-2024 IgG subclass 1 (S) [Mass/Vol] 735 mg/dL 248-810 [facility] Serum IgG subclass 2 measure ment (mass/volume)Ordered By: Lee Robles on 12-10-2024 IgG subclass 2 (S) [Mass/Vol] 243 mg/dL 130-555 [facility] Serum IgG subclass 3 measure ment (mass/volume)Ordered By: Lee Robles on 12-10-2024 IgG subclass 3 (S) [Mass/Vol] 47 mg/dL 15-102 [facility] Serum Scl-70 antibody assay (units/volume)Ordered By: Lee Robles on 12-10-2024 SCL-70 extractable nuclear Ab Qn (S) <0.2 AI 0.0-0.9 [facility] Serum albumin/globulin ratio Ordered By: Lee Robles on 12-10-2024 Albumin/Globulin (JACOB) 1.6 0.7-1.7 [facility] Serum beef IgE antibody assa y (units/volume)Ordered By: Lee Robles on 12-10-2024 Beef IgE Qn (S) <0.10 kU/L Class 0 [facility] Serum cardiolipin IgG antibo dy assay by immunoassay (units/volume)Ordered By: Lee Robles on 12-10-2024 Cardiolipin IgG IA Qn (S) < 9 GPL U/mL 0-14 [facility] Comment on above: Negative: <15 Indete rminate: 15 - 20 Low-Med Positive: >20 - 80 High Positive: >80 Serum cardiolipin IgM antibo dy assayOrdered By: Lee Robles on 12-10-2024 Anti-Cardiolipin IgM Antibody < 9 MPL U/mL 0-12 [facility] Comment on above: Negative: <13 Indete rminate: 13 - 20 Low-Med Positive: >20 - 80 High Positive: >80 Serum classic neutrophil cyt oplasmic antibody assay (units/volume)Ordered By: Lee Robles on 12-10-2024 Neutrophil cytoplasmic Ab.classic Qn (S) <1:20 titer Neg:<1:20 [facility] Serum codfish IgE antibody a ssay (units/volume)Ordered By: Lee Robles on 12-10-2024 Codfish IgE Qn (S) <0.10 kU/L Class 0 [facility] Serum corn IgE antibody assa y (units/volume)Ordered By: Lee Robles on 12-10-2024 [place]al IgE Qn (S) <0.10 kU/L Class 0 [facility] Serum cow milk IgE antibody assay (units/volume)Ordered By: Lee Robles on 12-10-2024 Cow milk IgE Qn (S) <0.10 kU/L Class 0 [facility] Serum globulin measurement ( mass/volume)Ordered By: Lee Robles on 12-10-2024 Globulin (S) [Mass/Vol] 2.9 g/dL 2.2-3.9 [facility] Serum mussel specific IgE an tibody assayOrdered By: Lee Robles on 12-10-2024 [place] Allergen IgE Antibody <0.10 kU/L Class 0 [facility] Serum or plasma IgA measurem ent (mass/volume)Ordered By: Lee Robles on 12-10-2024 IgA [Mass/Vol] 209 mg/dL 90-386 [facility] Serum or plasma IgG measurem ent (mass/volume)Ordered By: Lee Robles on 12-10-2024 IgG [Mass/Vol] 1289 mg/dL 603-1613 [facility] IgG [Mass/Vol] Not Reportable [facility] Serum or plasma alpha 1 glob ulin measurement by electrophoresis (mass/volume)Ordered By: Lee Robles on 12-10-2024 Alpha 1 globulin Elph [Mass/Vol] 0.2 g/dL 0.0-0.4 [facility] Alpha 1 globulin Elph [Mass/Vol] 0.5 g/dL 0.4-1.0 [facility] Serum or plasma beta globuli n measurement by electrophoresis (mass/volume)Ordered By: Lee Robles on 12-10-2024 Beta globulin Elph [Mass/Vol] 1.0 g/dL 0.7-1.3 [facility] Serum or plasma cardiolipin IgA antibody assay (units/volume)Ordered By: Lee Robles on 12-10-2024 Cardiolipin IgA Qn < 9 APL U/mL 0-11 [facility] Comment on above: Negative: <12 Indete rminate: 12 - 20 Low-Med Positive: >20 - 80 High Positive: >80 Serum or plasma complement C 4 measurement (mass/volume)Ordered By: Lee Robles on 12-10-2024 Complement C4 [Mass/Vol] 20 mg/dL 12-38 [facility] Serum or plasma gamma globul in measurement by electrophoresis (mass/volume)Ordered By: Lee Robles on 12-10-2024 Gamma globulin Elph [Mass/Vol] 1.2 g/dL 0.4-1.8 [facility] Serum or plasma immunoelectr ophoresis interpretation (nominal result)Ordered By: Lee Robles on 12-10-2024 Interpretation IEP [Interp] Comment . [facility] Comment on above: No monoclonality det ected. Serum or plasma mannobioside IgG antibody assay by immunoassay (units/volume)Ordered By: Lee Robles on 12-10-2024 Mannobioside IgG IA Qn 19 units 0-100 [facility] Comment on above: Negative: <90 Equivo quentin: 90-100 Positive: >100 This test was developed and its performance characteristics determined by [employer] ([employer]). It has not been cleared or approved by the Food and Drug Administration. The FDA has determined that such clearance or approval is not necessary. Serum or plasma protein archie urement (mass/volume)Ordered By: Lee Robles on 12-10-2024 Protein [Mass/Vol] 7.3 g/dL 6.0-8.5 [facility] Serum or plasma thyroid stim ulating hormone (TSH) measurement (units/volume)Ordered By: Lee Robles on 12-10-2024 TSH Qn 1.090 uIU/mL 0.358-3.74 0 [facility] Serum peanut IgE antibody as say (units/volume)Ordered By: Lee Robles on 12-10-2024 Peanut IgE Qn (S) <0.10 kU/L Class 0 [facility] Serum perinuclear neutrophil cytoplasmic antibody titer by immunofluorescenceOrdered By: Lee Robles on 12-10-2024 Neutrophil cytoplasmic Ab.perinuclear IF (S) [Titer] <1:20 titer Neg:<1:20 [facility] Comment on above: The presence of posi tive fluorescence exhibiting P-ANCA orC-ANCA patterns alone is not specific for the diagnosis ofWegener's Granulomatosis (WG) or microscopic polyangiitis.Decisions about treatment should not be based solely onANCA IFA results. The [employer] Consensusrecommends follow up testing of positive sera with both CA-3 and MPO-ANCA enzyme immunoassays. As many as 5% serumsamples are positive only by EIA. Ref. AM J Clin Hppkcf2017;111:507-513. Serum pork IgE antibody assa y (units/volume)Ordered By: Lee Robles on 12-10-2024 Pork IgE Qn (S) <0.10 kU/L Class 0 [facility] Serum salmon IgE antibody as say (units/volume)Ordered By: Lee Robles on 12-10-2024 [place] IgE Qn (S) <0.10 kU/L Class 0 [facility] Serum shrimp specific IgE an tibody assayOrdered By: Lee Robles on 12-10-2024 Shrimp Allergen 0.15 kU/L High Class 0/I [facility] Serum soybean IgE antibody a ssay (units/volume)Ordered By: Lee Robles on 12-10-2024 Soybean IgE Qn (S) <0.10 kU/L Class 0 [facility] Serum tissue transglutaminas e (tTG) IgA antibody assay (units/volume)Ordered By: Lee Robles on 12-10-2024 tTG IgA Qn (S) <2 U/mL 0-3 [facility] Comment on above: Negative 0 - 3 Weak Positive 4 - 10 Positive >10 Tissue Transglutaminase (tTG) has been identified as the endomysial antigen. Studies have demonstr- ated that endomysial IgA antibodies have over 99% specificity for gluten sensitive enteropathy. Serum tuna IgE antibody assa y (units/volume)Ordered By: Lee Robles on 12-10-2024 Tuna IgE Qn (S) <0.10 kU/L Class 0 [facility] Serum wheat IgE antibody ass ay (units/volume)Ordered By: Lee Robles on 12-10-2024 Wheat IgE Qn (S) 7.23 kU/L High Class IV [facility] Serum whole egg IgE antibody assay (units/volume)Ordered By: Lee Robles on 12-10-2024 Whole Egg IgE Qn (S) <0.10 kU/L Class 0 [facility] Comment on above: Performed at: [facility] [address] [id number] Director: Alfred Fischer PhD, Phone: [phone] at: [facility] [address] [id number] Director: Juno Rashid MD, Phone: [phone] Service comment (Unsp spec) [Interp]Ordered By: Lee Robles on 12-10-2024 RAST Comment Comment . [facility] Comment on above: Levels of Specific I gE Class Description of Class ----- < 0.10 0 Negative 0.10 - 0.31 0/I Equivocal/Low 0.32 - 0.55 I Low 0.56 - 1.40 II Moderate 1.41 - 3.90 III High 3.91 - 19.00 IV Very High 19.01 - 100.00 V Very High >100.00 Very High García antibody assayOrdered By: Lee Robles on 12-10-2024 SM Antibody <0.2 AI 0.0-0.9 [facility] Comment on above: Previous reported re sult: TNP AIEdited by: EUNICE on 12/13/24:1408 AMENDED REPORT 12/13/24 1408 PRISCILA Ab previously reported as: Test not performed Soy[place] IgE Qn (S)Ordered By : Lee Robles on 12-10-2024 Soybean Allergen (RAST) <0.10 kU/L Class 0 [facility] T4 Free Directon 12-10-2024 T4 FREE DIRECT 1.09 ng/dL Normal 0.76-1.46 [facility] Comment on above: Performed By: #### L 3100.7050, L3200.1600, L3300.0450, L501.39533, L3410.2400, L5500.0550, L3100.5440, L501.6710, L504.2610, L503.0105, L3100.3425, L506.0400, L4500.2000, L2100.0000, L3200.0500, L501.9520, L3100.8408, L3100.5700, L4500.5000, L3300.1200, L101.9900, L3100.7325, L3100.5800, L3100.7250, L506.0250, L4500.0100, L3100.5600 ####[facility] [id number] [place], [place], [id number] TSH QnOrdered By: Lee Lim iend on 12-10-2024 Thyroid Stimulating Hormone (TSH) 1.090 uIU/mL 0.358-3.74 0 [facility] Thrombin timeOrdered By: Khang ndiaye Friend on 12-10-2024 Thrombin time Coag (PPP) [Time] 18.5 sec 0.0-23.0 [facility] Thrombin time Coag (PPP) [Ti me]Ordered By: Lee Robles on 12-10-2024 Thrombin Time 18.5 sec 0.0-23.0 [facility] Thyroid Stim Hormone (TSH)on 12-10-2024 TSH 1.090 uIU/mL Normal 0.358-3.74 0 [facility] Comment on above: Performed By: #### L 3100.7050, L3200.1600, L3300.0450, L501.69078, L3410.2400, L5500.0550, L3100.5440, L501.6710, L504.2610, L503.0105, L3100.3425, L506.0400, L4500.2000, L2100.0000, L3200.0500, L501.9520, L3100.8408, L3100.5700, L4500.5000, L3300.1200, L101.9900, L3100.7325, L3100.5800, L3100.7250, L506.0250, L4500.0100, L3100.5600 ####[facility] [id number] [facility] [place], [place], [id number] Total hemolytic (CH50) compl ement assayOrdered By: Lee Robles on 12-10-2024 Total Complement (CH50) 60 U/mL >41 [facility] Comment on above: Age Male Female 1 - 30 days Not Estab. Not Estab. 31 days - 6 months >32 >20 7 months - 17 years >39 >39 >17 years >41 >41 NOTE: The adult (">17 years") reference interval range is used to flag abnormals on this report. If the patient is 17 years old or younger, use the table above to determine out of range values. Tuna IgE Qn (S)Ordered By: Eugenio Robles on 12-10-2024 Tuna Allergen (RAST) <0.10 kU/L Class 0 [facility] Vitamin B12on 12-10-2024 Cobalamin (Vitamin B12) [Mass/Vol] 606 pg/mL Normal 211-911 [facility] Comment on above: Performed By: #### L 3100.7050, L3200.1600, L3300.0450, L501.25087, L3410.2400, L5500.0550, L3100.5440, L501.6710, L504.2610, L503.0105, L3100.3425, L506.0400, L4500.2000, L2100.0000, L3200.0500, L501.9520, L3100.8408, L3100.5700, L4500.5000, L3300.1200, L101.9900, L3100.7325, L3100.5800, L3100.7250, L506.0250, L4500.0100, L3100.5600 ####[facility] [id number] [place], [address] Vitamin B12 measurementOrder ed By: Lee Robles on 12-10-2024 Cobalamin (Vitamin B12) [Mass/Vol] 606 pg/mL 211-911 [facility] Wheat IgE Qn (S)Ordered By: Lee Robles on 12-10-2024 Wheat Allergen (RAST) 7.23 kU/L High Class IV [facility] Whole Egg IgE Qn (S)Ordered By: Lee Robles on 12-10-2024 Egg Whole Allergen <0.10 kU/L Class 0 [facility] Comment on above: Performed at: [facility] Kapil mendenhall [address] [id number] Director: Alfred Fischer PhD, Phone: [phone] at: [address] [id number] Director: Juno Rashid MD, Phone: [phone] dRVVT July ([facility]) [Time]Order ed By: Lee Friend on 12-10-2024 Dilute Kirill Viper Venom (Lupus) 35.2 sec 0.0-47.0 [facility] tTG IgA Qn (S)Ordered By: Ra riggins Friend on 12-10-2024 Tissue Transglutaminase IgA Ab <2 U/mL 0-3 [facility] Comment on above: Negative 0 - 3 Weak Positive 4 - 10 Positive >10 Tissue Transglutaminase (tTG) has been identified as the endomysial antigen. Studies have demonstr- ated that endomysial IgA antibodies have over 99% specificity for gluten sensitive enteropathy. Abdomen/Pelvis WITH Contrast on 12-07-2024 Abdomen/Pelvis WITH Contrast [facility] [address] [place] [address] Abdomen/Pelvis WITH Contrast MR#: [id number] Acct: [id number] Name: TERRIE ALLEN Rep #: [id number] : 1980 M 44 From: Dagoberto fields MD PCP: Dr. Geronimo Lemus MD Status: REG CLI Study: Abdomen/Pelvis WITH Contrast Date of Exam: 08/21 Exam# [id number] Ordering Dr: Geronimo Lemus MD EXAM: ABDOMEN/PELVIS WITH CONTRAST CLINICAL HISTORY: History of intussusception 11 months ago. Abdominal pain. Nausea. COMPARISON: 04/03/2024. TECHNIQUE: Helical CT images of the abdomen and pelvis were performed utilizing routine protocol with intravenous contrast material. Multiplanar reformations were obtained. Dose reduction techniques were used including intermediate exposure control (AEC),iterative reconstruction technique, and/or mA and/or KV dose adjustments based on patient's size. FINDINGS: Mild bibasilar atelectasis. No obvious acute abnormality of the spleen, pancreas, or adrenal glands. There are multiple subcentimeter too small to characterize hepatic low-density lesions. The gallbladder is contracted and contains questionable gallstones. No acute obstructive urinary collecting system calculus. No urinary bladder wall thickening. No hydronephrosis. No acute bowel obstruction. No pneumoperitoneum. Postsurgical changes noted at the right colon. No CT evidence of acute colonic diverticulitis. No CT evidence of acute appendicitis. No lymphadenopathy. No significant free fluid in the abdomen and pelvis. Mild right hydrocele. No CT evidence of acute osseous abnormality. CT/Abdomen/Pelvis WITH Contrast IMPRESSION: No intussusception identified. The gallbladder is contracted and contains questionable gallstones. Mild right hydrocele. Reading Location: [id number] CC: Dr. Geronimo Lemus MD Business Support Assistant: Signed Normal [facility] Gastric Emptying Studyon Gastric Emptying Study [facility] [address] [place] [address] Gastric Emptying Study MR#: [id number] Acct: [id number] Name: TERRIE ALLEN Rep #: [id number] : 1980 M 44 From: Charlie leos MD PCP: Dr. Geronimo Lemus MD Status: REG CLI Study: Gastric Emptying Study Date of Exam: 12/04/24 Exam# [id number] Ordering Dr: Geronimo Lemus MD EXAM: GASTRIC EMPTYING STUDY CLINICAL HISTORY: Abdominal pain. COMPARISON: None. TECHNIQUE: The patient ingested a combination of 1.1 mCi of technetium sulfur colloid and oatmeal. FINDINGS: There is normal gastric emptying. The T1 half is 32 minutes. NM/Gastric Emptying Study IMPRESSION: Normal gastric emptying examination. Reading Location: [id number] CC: Dr. Geronimo Lemus MD Business Support Assistant: Signed Normal [facility] Fecal Fat, Qualitativeon FATS, NEUTRAL Normal Normal . [facility] Comment on above: Order Comment: Test( s) 151824-Cxfj, Neutral; [id number]-Jful, Total was developed and its performance characteristics determined by [employer]). It has not been cleared or approved by the Food and Drug Administration. Result Comment: Norm al (<60 Droplets/HPF) Performed By: #### L 7000.0300 #### [facility] [address] [place], [place], [id number] FATS, TOTAL Normal Normal . [facility] Comment on above: Order Comment: Test( s) [id number]-[id number], Neutral; 990032-Zflt, Total was developed and its performance characteristics determined by [facility]. It has not been cleared or approved by the Food and Drug Administration. Result Comment: Norm al (<100 Droplets/HPF) Performed at: [facility] [address] [place], [place] [id number] Poll Clerk: Alfred Fischer PhD, Phone: [phone] Performed By: #### L 7000.0300 #### [facility] [address] [place], [place], [id number] Fat Ql (Stl)Ordered By: Vicki Lemus on 11-23-2024 Stool Total Fats Normal . [facility] Comment on above: Normal (<100 Droplet s/HPF)Performed at: [address] [id number] Director: Alfred Fischer PhD, Phone: [phone] Fecal fat detectionOrdered B y: Geronimo Lemus on 11-23-2024 Fat Ql (Stl) Normal . [facility] Comment on above: Normal (<100 Droplet s/HPF)Performed at: [address] [id number] Director: Alfred Fischer PhD, Phone: [phone] No Panel InformationOrdered By: Geronimo Lemus on 11-23-2024 Stool Neutral Fats Normal . [facility] Comment on above: Normal (<60 Droplets /HPF) 64-GK-Jsjrrcp DOrdered By: Syeda Lemus on 11-16-2024 Vitamin D 25-Hydroxy 27.9 ng/mL [facility] Comment on above: Vitamin D 25(OH) Sta tus Range Deficiency <20 ng/mL (50nmol/L) Insufficiency 20 - 30 ng/mL (50 - 75 nmol/L) Sufficiency 30 - 100 ng/mL (75 - 250 nmol/L) Toxicity >100 ng/mL (>250 nmol/L) Absolute neutrophil countOrd ered By: Geronimo Lemus on 11-16-2024 Neutrophils (Bld) [#/Vol] 4.2 10*3/uL 2.0-7.7 [facility] Albumin to globulin ratioOrd ered By: Geronimo Lemus on 11-16-2024 Albumin/Globulin [Mass ratio] 1.3 {ratio} 0.9-2.4 [facility] Basophil percentageOrdered B y: Geronimo Lemus on 11-16-2024 Basophils/100 WBC (Bld) 0.8 % 0-1 [facility] Bilirubin, totalOrdered By: Geronimo Lemus on 11-16-2024 Bilirubin [Mass/Vol] 2.80 mg/dL High 0.20-1.00 [facility] Comment on above: For patients on eltr ombopag therapy, use of Dimension [place] TBIL is not recommended. Blood urea nitrogen (BUN)/cr eatinine ratioOrdered By: Geronimo Lemus on 11-16-2024 Urea nitrogen/Creatinine [Mass ratio] 16.4 mg/mg 10-20 [facility] CBC W/Diff, Automatedon 10-29 Absolute Lymph 1.94 X10 3/uL Normal 0.83-4.51 [facility] Comment on above: Performed By: #### L 506.1000, L100.0100, L500.4050 #### [facility] [address] [place], [address] Absolute Neut 4.2 X10 3/uL Normal 2.0-7.7 [facility] Comment on above: Performed By: #### L 506.1000, L100.0100, L500.4050 #### [facility] [address] [place], [address] Basophils/100 WBC (Bld) 0.8 % Normal 0-1 [facility] Comment on above: Performed By: #### L 506.1000, L100.0100, L500.4050 #### [facility] [address] [place], [address] Eosinophils/100 WBC (Bld) 3.5 % Normal 0-5 [facility] Comment on above: Performed By: #### L 506.1000, L100.0100, L500.4050 #### [facility] [address] [place], [address] Erythrocyte distribution width (RBC) [Ratio] 12.0 % Normal 11.6-14.6 [facility] Comment on above: Performed By: #### L 506.1000, L100.0100, L500.4050 #### [facility] [address] [place], [address] Hematocrit (Bld) [Volume fraction] 45.0 % Normal 40-54 [facility] Comment on above: Performed By: #### L 506.1000, L100.0100, L500.4050 #### [facility] [address] [place], [address] Hemoglobin (Bld) [Mass/Vol] 14.8 g/dL Normal 13.0-16.5 [facility] Comment on above: Performed By: #### L 506.1000, L100.0100, L500.4050 #### [facility] [address] [place], [address] IG% 0.400 Normal 0.0-0.9 [facility] Comment on above: Result Comment: IG% - Immature Granulocytes (promyelocytes, myelocytes and metamyelocytes) > 1% indicates that a LEFT SHIFT is Present. Performed By: #### L 506.1000, L100.0100, L500.4050 #### [facility] [address] [place], [address] Lymphocytes/100 WBC (Bld) 27.0 % Normal 19-41 [facility] Comment on above: Performed By: #### L 506.1000, L100.0100, L500.4050 #### [facility] [address] [place], [address] MCH (RBC) [Entitic mass] 28.6 pg Normal 27.0-32.0 [facility] Comment on above: Performed By: #### L 506.1000, L100.0100, L500.4050 #### [facility] [address] [place], [address] MCHC (RBC) [Mass/Vol] 32.9 g/dL Normal 32-36 [facility] Comment on above: Performed By: #### L 506.1000, L100.0100, L500.4050 #### [facility] [address] [place], [address] MCV (RBC) [Entitic vol] 86.9 fL Normal 80-94 [facility] Comment on above: Performed By: #### L 506.1000, L100.0100, L500.4050 #### [facility] [address] [place], [address] Monocytes/100 WBC (Bld) 10.6 % High 0-10 [facility] Comment on above: Performed By: #### L 506.1000, L100.0100, L500.4050 #### [facility] [address] [place], [address] Neutrophils/100 WBC (Bld) 57.7 % Normal 47-70 [facility] Comment on above: Performed By: #### L 506.1000, L100.0100, L500.4050 #### [facility] [address] [place], [address] Nucleated RBC (Bld) [#/Vol] 0 10*3/uL Normal 0-5 [facility] Comment on above: Performed By: #### L 506.1000, L100.0100, L500.4050 #### [facility] [address] [place], [address] Platelet mean volume (Bld) [Entitic vol] 10.7 fL Normal 6.2-12.0 [facility] Comment on above: Performed By: #### L 506.1000, L100.0100, L500.4050 #### [facility] [address] [place], [address] Platelets (Bld) [#/Vol] 265 10*3/uL Normal 150-450 [facility] Comment on above: Performed By: #### L 506.1000, L100.0100, L500.4050 #### [facility] [facility] [address] [place], [address] RBC (Bld) [#/Vol] 5.18 10*6/uL Normal 4.6-6.2 [facility] Comment on above: Performed By: #### L 506.1000, L100.0100, L500.4050 #### [facility] [address] [place], [address] RDW SD 38.4 fl Normal 35.1-43.9 [facility] Comment on above: Performed By: #### L 506.1000, L100.0100, L500.4050 #### [facility] [address] [place], [address] WBC (Bld) [#/Vol] 7.2 10*3/uL Normal 4.4-11.0 [facility] Comment on above: Performed By: #### L 506.1000, L100.0100, L500.4050 #### [facility] [address] [place], [address] Carbon dioxide measurementOr dered By: Geronimo Lemus on 11-16-2024 CO2 [Moles/Vol] 30.0 mmol/L 21.0-32.0 [facility] Chloride measurementOrdered By: Geronimo Lemus on 11-16-2024 Chloride [Moles/Vol] 106 mmol/L 98-107 [facility] Comprehensive Metabolic Prof ilon 11-16-2024 Albumin [Mass/Vol] 4.2 g/dL Normal 3.2-5.0 [facility] Comment on above: Performed By: #### L 506.1000, L100.0100, L500.4050 ####[facility] [address] [place], [address] Albumin/Globulin [Mass ratio] 1.3 {ratio} Normal 0.9-2.4 [facility] Comment on above: Performed By: #### L 506.1000, L100.0100, L500.4050 ####[facility] [address] [place], [address] ALK P 86 U/L Normal 45-117 [facility] Comment on above: Performed By: #### L 506.1000, L100.0100, L500.4050 ####[facility] [address] [place], [address] ALT [Catalytic activity/Vol] 44 U/L Normal 16-61 [facility] Comment on above: Performed By: #### L 506.1000, L100.0100, L500.4050 ####[facility] [address] [place], [address] AST [Catalytic activity/Vol] 22 U/L Normal 15-37 [facility] Comment on above: Performed By: #### L 506.1000, L100.0100, L500.4050 ####[facility] [address] [place], [address] Bilirubin [Mass/Vol] 2.80 mg/dL High 0.20-1.00 [facility] Comment on above: Result Comment: For patients on eltrombopag therapy, use of Dimension [place] TBIL is not recommended. Performed By: #### L 506.1000, L100.0100, L500.4050 ####[facility] [address] [place], [address] BUN/CRE 16.4 RATIO Normal 10-20 [facility] Comment on above: Performed By: #### L 506.1000, L100.0100, L500.4050 ####[facility] [address] [place], [address] CA,Total 9.5 mg/dL Normal 8.5-10.1 [facility] Comment on above: Performed By: #### L 506.1000, L100.0100, L500.4050 ####[facility] [address] [place], [address] Chloride [Moles/Vol] 106 mmol/L Normal 98-107 [facility] Comment on above: Performed By: #### L 506.1000, L100.0100, L500.4050 ####[facility] [address] [place], [address] CO2 [Moles/Vol] 30.0 mmol/L Normal 21.0-32.0 [facility] Comment on above: Performed By: #### L 506.1000, L100.0100, L500.4050 ####[facility] [address] [place], [address] Creatinine [Mass/Vol] 1.10 mg/dL Normal 0.70-1.30 [facility] Comment on above: Result Comment: The validity of the calculated GFR GFRAA in patients over 70 years has not been determined. Clinical correlation is essential. Performed By: #### L 506.1000, L100.0100, L500.4050 ####[facility] [address] [place], [address] EST GFR - AA 93 mL/min Normal >60 [facility] Comment on above: Result Comment: Afri can Ecuadorean GFR Calc Performed By: #### L 506.1000, L100.0100, L500.4050 ####[facility] [address] [place], [address] GAP 4 Low 5-15 [facility] Comment on above: Performed By: #### L 506.1000, L100.0100, L500.4050 ####[facility] [address] [place], [address] GFR/1.73 sq M.predicted among non-blacks MDRD (S/P/Bld) [Vol rate/Area] 77 mL/min/{1.73_m2} Normal >60 [facility] Comment on above: Result Comment: Non- GFR Calc Performed By: #### L 506.1000, L100.0100, L500.4050 ####[facility] [address] [place], [address] Globulin (S) [Mass/Vol] 3.3 g/dL Normal 2.2-4.2 [facility] Comment on above: Performed By: #### L 506.1000, L100.0100, L500.4050 ####[facility] [address] [place], [address] Glucose [Mass/Vol] 105 mg/dL Normal 74-106 [facility] Comment on above: Result Comment: Fast ing Glucose result from 100 to 125 mg/dL suggests IMPAIRED HOMEOSTASIS per A.D.A. criteria. Performed By: #### L 506.1000, L100.0100, L500.4050 ####[facility] [address] [place], [address] Potassium [Moles/Vol] 4.2 mmol/L Normal 3.5-5.1 [facility] Comment on above: Performed By: #### L 506.1000, L100.0100, L500.4050 ####[facility] [address] [place], [address] Sodium [Moles/Vol] 140 mmol/L Normal 136-145 [facility] Comment on above: Performed By: #### L 506.1000, L100.0100, L500.4050 ####[facility] [address] [place], [address] T PROT 7.5 g/dL Normal 6.4-8.2 [facility] Comment on above: Performed By: #### L 506.1000, L100.0100, L500.4050 ####[facility] [address] [place], [address] Urea nitrogen [Mass/Vol] 18 mg/dL Normal 7-18 [facility] Comment on above: Performed By: #### L 506.1000, L100.0100, L500.4050 ####[facility] [address] [place], [address] Eosinophil percentageOrdered By: Geronimo Lemus on 11-16-2024 Eosinophils/100 WBC (Bld) 3.5 % 0-5 [facility] Erythrocyte distribution wid th ratioOrdered By: Geronimo Lemus on 11-16-2024 Erythrocyte distribution width (RBC) [Ratio] 12.0 % 11.6-14.6 [facility] Erythrocyte distribution wid th standard deviationOrdered By: Geronimo Lemus on 11-16-2024 Erythrocyte distribution width (RBC) [Entitic vol] 38.4 fL 35.1-43.9 [facility] Estimated glomerular filtrat ion rate (GFR) AmericanOrdered By: Geronimo Lemus on 11-16-2024 Estimated GFR (MDRD) Amer 93 mL/min >60 [facility] Comment on above: GFR Calc Glomerular filtration rate ( GFR) estimationOrdered By: Geronimo Lemus on 11-16-2024 Estimated GFR (MDRD) Non-Af Amer 77 mL/min >60 [facility] Comment on above: Non- GFR Calc Glucose measurementOrdered B y: Geronimo Lemus on 11-16-2024 Glucose [Mass/Vol] 105 mg/dL 74-106 [facility] Comment on above: Fasting Glucose resu lt from 100 to 125 mg/dL suggests IMPAIRED HOMEOSTASIS per A.D.A. criteria. Hematocrit Auto (Bld) [Volum e fraction]Ordered By: Geronimo Lemus on 11-16-2024 Hematocrit (Bld) [Volume fraction] 45.0 % 40-54 [facility] Hemoglobin measurementOrdere d By: Geronimo Lemus on 11-16-2024 Hemoglobin (Bld) [Mass/Vol] 14.8 g/dL 13.0-16.5 [facility] Immature granulocytes/100 WB C Auto (Bld)Ordered By: Geronimo Lemus on 11-16-2024 Immature granulocytes/100 WBC (Bld) 0.400 % 0.0-0.9 [facility] Comment on above: IG% - Immature Granu locytes (promyelocytes, myelocytes and metamyelocytes) > 1% indicates that a LEFT SHIFT is Present. Internal Medicine Office Vis iton 11-16-2024 Internal Medicine Office Visit [facility] [address] [place] [address] [address] [place] [address] OFFICE VISIT Date of Service: 11/16/24 MR#: [id number] Acct: [id number] Name: TERRIE ALLEN Rep #: [id number] : 1980 Provider: Dr. Geronimo javed MD Age/Sex: 44/M [place] [facility] Status: Signed Intake Vital Signs 09/28/24 13:33 11/16/24 14:34 Height 6 ft 3 in 6 ft 3 in Weight: 220 lb BMI 27.5 BP 112/68 Blood Pressure Location Lt brachial Position Sitting Respiration 16 Pulse 77 Pulse Source Monitor Temp 97.1 F L Temp Source Temporal Pulse Oximetry (%) 99 Oxygen Delivery Method room air Intake Visit Reasons: STOMACH PAIN, OVERALL NOT FEELING WELL Chief Complaint: continues to feel nausea and pain in the morning post surgery Fire Information Officer Required: No Accompanied by: Self Is patient in pain?: Yes Allergies No Known Allergies Allergy (Verified 11/16/24 14:29) Medications ???Medication ???Instructions ???Recorded ???Confirmed ???Type meloxicam 7.5 mg tablet 7.5 mg PO QDAY #90 tabs 11/16/24 11/16/24 Rx pantoprazole 40 mg tablet,delayed 40 mg PO QDAY #90 tabs 11/16/24 11/16/24 Rx release sucralfate 1 gram tablet (Carafate) 1 g PO BID #60 tabs 11/16/24 11/16/24 Rx Have you fallen in the past year?: No PFSH Medical History Difficulty swallowing History of IBS Gastric reflux Anterior abdomen avulsion History of abdominal abscess Nonhealing surgical wound Superior mesenteric vein thrombosis Sepsis without acute organ dysfunction Collar bone fracture COVID-19 Surgical History History of surgical procedure History of ankle surgery History of open reduction and internal fixation (ORIF) procedure Status post right hemicolectomy S/P exploratory laparotomy H/O hernia repair Family History Mother Diabetes Kidney disease had mass, removed portion of it. Father Diabetes Cancer prostate Colon cancer 75 Grandmother Cancer stomach Social History adopted: No household members: spouse number of children: 1 current occupational status: employed current occupation: [employer]. pets and animals: Yes pets and animals: dog(s) sexually active: Yes Smoking Status: Never smoker Electronic Cigarette Use: not used alcohol intake: never substance use type: does not use diet: lactose free caffeine: Yes (1-2) Type: carbonated beverages frequency: does not exercise seatbelt use: always do you feel safe at home: Yes HPI HPI Chief Complaint: continues to feel nausea and pain in the morning post surgery Details: TERRIE ALLEN, is a 44 M who presents to the office today for a follow up. He is up to date on his routine blood work. He is not due for any screening. He previously declined a flu shot. He does n't smoke and does need refills. He reports he is eating healthy and staying active as much as he is able to. Patient was hospitalized back in December 2023 after presenting with complaints of abdominal pain for 2 months which had been getting worse in addition to bloody bowel movements. Imaging showed findings of intussusception and he was admitted and underwent surgery with a right ernie-colectomy. Following surgery, he was found to have a post operative infection requiring antibiotics, wound vac placement and repeat surgeries. He completed his antibiotics on July 06. He reports his wound finally healed and his recent imaging showed no signs of ongoing infection. The patient continues to have ongoing problems with abdominal pain. He has previously done an EGD which showed gastritis. He was initially doing well on omeprazole, but his symptoms appeared to have worsened. His general surgeon changed him to pantoprazole. He thought he felt better but after a few days, his symptoms flared up again. He reports that it is worse in the mornings and gets better as the day progresses. It is in his epigastric and periumbilical areas. He reports he will also notice a tightness in his lower ribcage. He has been trying to pay attention to his diet and stick with bland foods. He states he does get bloated after eating and feels sick to his stomach. He denies any vomiting. He has tried zofran, tums, pepto-bismol without resolution. He reports he has soft bowel movements or diarrhea. He states his stool appears light coloured or yellow/brown in colour. He has also tried anti-diarrheal pills. He states between 1-2 hours after eating, he feels like he has to move his bowels. His weight has been stable. At the patient's last office visit, he complained of ongoing dizziness. Exam was fairly unremarkable. A brain MRI was completed and (more content not included)... Normal [facility] - Chemistry and C hemistry - challengeOrdered By: Geronimo Lemus on 11-16-2024 AST [Catalytic activity/Vol] 22 U/L 15-37 [facility] Lymphocytes Auto (Unsp spec) [#/Vol]Ordered By: Geronimo Lemus on 11-16-2024 Lymphocytes (Bld) [#/Vol] 1.94 10*3/uL 0.83-4.51 [facility] Lymphocytes/100 WBC Auto (Un sp spec)Ordered By: Geronimo Lemus on 11-16-2024 Lymphocytes/100 WBC (Bld) 27.0 % 19-41 [facility] MCV (mean corpuscular volume ) determinationOrdered By: Geronimo Lemus on 11-16-2024 MCV (RBC) [Entitic vol] 86.9 fL 80-94 [facility] Mean corpuscular hemoglobin (MCH) determinationOrdered By: Geronimo Lemus on 11-16-2024 MCH (RBC) [Entitic mass] 28.6 pg 27.0-32.0 [facility] Mean corpuscular hemoglobin concentration (MCHC) determinationOrdered By: Geronimo Lemus on 11-16-2024 MCHC (RBC) [Mass/Vol] 32.9 g/dL 32-36 [facility] Mean platelet volume determi nationOrdered By: Geronimo Lemus on 11-16-2024 Platelet mean volume (Bld) [Entitic vol] 10.7 fL 6.2-12.0 [facility] Monocyte percentageOrdered B y: Geronimo Lemus on 11-16-2024 Monocytes/100 WBC (Bld) 10.6 % High 0-10 [facility] Neutrophil percentageOrdered By: Geronimo Lemus on 11-16-2024 Neutrophils/100 WBC (Bld) 57.7 % 47-70 [facility] Nucleated red blood cell per centageOrdered By: Geronimo Lemus on 11-16-2024 Nucleated RBC/100 WBC (Bld) [Ratio] 0 % 0-5 [facility] Platelet countOrdered By: Parrish Lemus on 11-16-2024 Platelets (Bld) [#/Vol] 265 10*3/uL 150-450 [facility] Potassium measurementOrdered By: Geronimo Lemus on 11-16-2024 Potassium [Moles/Vol] 4.2 mmol/L 3.5-5.1 [facility] RBC Auto (Bld) [#/Vol]Ordere d By: Geronimo Lemus on 11-16-2024 RBC (Bld) [#/Vol] 5.18 10*6/uL 4.6-6.2 [facility] Serum anion gap measurementO rdered By: Geronimo Lemus on 11-16-2024 Anion gap [Moles/Vol] 4 mmol/L Low 5-15 [facility] Serum globulin measurementOr dered By: Geronimo Lemus on 11-16-2024 Globulin (S) [Mass/Vol] 3.3 g/dL 2.2-4.2 [facility] Serum or plasma alanine caldwell otransferase (ALT) measurementOrdered By: Geronimo Lemus on 11-16-2024 ALT [Catalytic activity/Vol] 44 U/L 16-61 [facility] Serum or plasma albumin archie urement (mass/volume)Ordered By: Geronimo Lemus on 11-16-2024 Albumin [Mass/Vol] 4.2 g/dL 3.2-5.0 [facility] Serum or plasma alkaline gokul sphatase measurementOrdered By: Geronimo Lemus on 11-16-2024 ALP [Catalytic activity/Vol] 86 U/L 45-117 [facility] Serum or plasma calcium archie urement (mass/volume)Ordered By: Geronimo Lemus on 11-16-2024 Calcium [Mass/Vol] 9.5 mg/dL 8.5-10.1 [facility] Serum or plasma creatinine m easurement (mass/volume)Ordered By: Geronimo Lemus on 11-16-2024 Creatinine [Mass/Vol] 1.10 mg/dL 0.70-1.30 [facility] Comment on above: The validity of the calculated GFR & GFRAA in patients over 70 years has not been determined. Clinical correlation is essential. Serum or plasma urea nitroge n measurement (mass/volume)Ordered By: Geronimo Lemus on 11-16-2024 Urea nitrogen [Mass/Vol] 18 mg/dL 7-18 [facility] Sodium levelOrdered By: Vicki Lemus on 11-16-2024 Sodium [Moles/Vol] 140 mmol/L 136-145 [facility] Total proteinOrdered By: Edison Lemus on 11-16-2024 Protein [Mass/Vol] 7.5 g/dL 6.4-8.2 [facility] Vitamin D,25 Hydroxyon 11-16 Vitamin D 25-OH 27.9 ng/mL Normal [facility] Comment on above: Result Comment: Magdalena min D 25(OH) Status Range Deficiency <20 ng/mL (50nmol/L) Insufficiency 20 - 30 ng/mL (50 - 75 nmol/L) Sufficiency 30 - 100 ng/mL (75 - 250 nmol/L) Toxicity >100 ng/mL (>250 nmol/L) Performed By: #### L 506.1000, L100.0100, L500.4050 ####[facility] [address] [place], [address] White blood cell (WBC) count Ordered By: Geronimo Lemus on 11-16-2024 WBC (Bld) [#/Vol] 7.2 10*3/uL 4.4-11.0 [facility] Thoracic Spine 2 Viewson Thoracic Spine 2 Views [facility] [address] [place] [address] Thoracic Spine 2 Views MR#: [id number] Acct: [id number] Name: TERRIE ALLEN Rep #: [id number] : 1980 M 44 From: Sinan Raymond MD PCP: Dr. Geronimo Lemus MD Status: REG CLI Study: Thoracic Spine 2 Views Date of Exam: 11/10/24 Exam# [id number] Ordering Dr: Alin Issa MD [id number] EXAM: XR THORACIC SPINE, 2 VIEWS CLINICAL INDICATION: THORACIC PAIN TECHNIQUE: Frontal and lateral views of the thoracic spine. COMPARISON: No relevant prior studies available. FINDINGS: VERTEBRAE: Unremarkable. Preserved vertebral body height. No fracture. No spondylolisthesis. Preservation of the normal thoracic kyphosis. No significant facet arthropathy. DISC SPACES: Unremarkable. Disc spaces are maintained. RAD/Thoracic Spine 2 Views IMPRESSION: No evidence of thoracic spinal fracture or spondylolisthesis. Electronically Signed: Sinan Raymond MD at 17:49 EST , CC: Dr. Greonimo Lemus MD; Dr. Alin Issa MD Business Support Assistant: Signed Normal [facility] Spine Lumbar (Routine)on Spine Lumbar (Routine) [facility] [address] [place] [address] Spine Lumbar (Routine) MR#: [id number] Acct: [id number] Name: TERRIE ALLEN Rep #: [id number] : 1980 M 44 From: Chidi Carvajal MD PCP: Dr. Geronimo Lemus MD Status: REG CLI Study: Spine Lumbar (Routine) Date of Exam: 10/24/24 Exam# [id number] Ordering Dr: Geronimo Lemus MD [id number] STUDY: MRI LUMBAR SPINE WITHOUT CONTRAST REASON FOR EXAM: Male, 44 years old. back pain TECHNIQUE: Standardized fat and water weighted pulse sequences were obtained in the sagittal and axial planes. COMPARISON: X-ray 04/08/2024 FINDINGS: T12-L1: Normal endplates. Normal disc height, hydration and morphology. Normal bilateral facet joints. Normal central canal and bilateral lateral recesses. Normal bilateral intervertebral neural foramina. Normal lumbar lordosis. There is no substantial scoliosis. Normal conus medullaris that terminates at the T12. L1-2: Normal endplates. Normal disc height, hydration and morphology. Normal bilateral facet joints. Normal central canal and bilateral lateral recesses. Normal bilateral intervertebral neural foramina. L2-3: Mild broad disc protrusion produces mild spinal stenosis and mild bilateral neural foraminal stenosis. L3-4: Mild bilateral facet hypertrophy and moderate ligament flavum hypertrophy. Mild broad disc protrusion produces mild spinal stenosis and mild bilateral neural foraminal stenosis. L4-5: Normal endplates. Normal disc height, hydration and morphology. Normal bilateral facet joints. Normal central canal and bilateral lateral recesses. Normal bilateral intervertebral neural foramina. L5-S1: 2 mm of anterolisthesis of L5 on S1 with a mild broad disc protrusion produces mild spinal stenosis and mild bilateral neural foraminal stenosis. Normal visualized sacral ala. Normal visualized paraspinous soft tissue structures. MRI/Spine Lumbar (Routine) IMPRESSION: Multilevel degenerative changes, as described above. Electronically Signed: Chidi Carvajal MD at 18:00 EST , CC: Dr. Geronimo Lemus MD Business Support Assistant: Signed Normal [facility] CRP SerPl-mCncon 10-09-2024 CRP [Mass/Vol] 0.4 mg/dL Normal <0.9 [facility] Comment on above: Order Comment: Speci men Type: BLOOD SPECIMENOrdering Facility: [facility] Address: [address] [place] [address] Performed By: #### 1 [id number] ####[facility] [id number] [place] [address] [place] ESR Westergren method (Bld) [Velocity]on 10-09-2024 ESR (Bld) [Velocity] 2 mm/h Normal 0-15 [facility] Comment on above: Order Comment: Speci men Type: BLOOD SPECIMENOrdering Facility: [facility] Address: [address] [place] [address] Performed By: #### 4 [id number] ####[facility] [id number] [place] [address] [place] Oncology Visit Reporton Oncology Visit Report [facility] [address] [facility] [place], [place] [address] OFFICE VISIT Date of Service: 09/28/24 1332 MR#: [id number] Acct: [id number] Name: TERRIE ALLEN Rep #: [id number] : 1980 From: Jericho Romero MD Age/Sex: 44/M [place] [facility] Status: Signed HPI Subjective Date of Service 09/28/24 Chief Complaint Superior mesenteric vein thrombosis History of Present Illness 4-year-old gentleman who presented in December 2023 with acute bowel obstruction and on January 11, 2024 underwent an emergency hand-assisted laparoscopic right hemicolectomy for ileocecal intussusception. Postoperative course was complicated with sepsis, abscess formation and he was hospitalized at [facility] for approximately 1 month with he underwent exploration and abscess drainage. He was discharged on antibiotics which he remains on. Patient states he started to feel better in February 2024. On January 18, [address] he was found to have developed partial thrombosis of the superior mesenteric vein. He was placed on Eliquis since and has not developed any bleeding complications. [facility] Medical History Difficulty swallowing History of IBS Gastric reflux Anterior abdomen avulsion History of abdominal abscess Nonhealing surgical wound Superior mesenteric vein thrombosis Sepsis without acute organ dysfunction Collar bone fracture COVID-19 Surgical History History of surgical procedure History of ankle surgery History of open reduction and internal fixation (ORIF) procedure Status post right hemicolectomy S/P exploratory laparotomy H/O hernia repair Family History Mother Diabetes Kidney disease had mass, removed portion of it. Father Diabetes Cancer prostate Colon cancer 75 Grandmother Cancer stomach Social History adopted: No household members: spouse number of children: 1 current occupational status: employed current occupation: [employer]. pets and animals: Yes pets and animals: dog(s) sexually active: Yes Smoking Status: Never smoker Electronic Cigarette Use: not used alcohol intake: never substance use type: does not use diet: lactose free caffeine: Yes (1-2) Type: carbonated beverages frequency: does not exercise seatbelt use: always do you feel safe at home: Yes ROS ROS Narrative Continues to experience epigastric discomfort, noted some relief with use of Nexium [id number]. Intake Vital Signs 03/17/24 09:53 08/13/24 15:20 09/28/24 13:33 Height 6 ft 3 in 6 ft 3 in 6 ft 3 in Weight: 100.698 kg BMI 27.7 BP 128/78 H Blood Pressure Location Rt brachial Position Sitting Respiration 16 Pulse 63 Pulse Source Monitor Temp 97.5 F L Temperature Source Oral Pulse Oximetry (%) 99 Oxygen Delivery Method room air Intake Is patient in pain?: Yes (abdomen) Pain scale (1-10): 2 Allergies No Known Allergies Allergy (Verified 09/28/24 13:42) Medications ???Medication ???Instructions ???Recorded ???Confirmed ???Type meloxicam 7.5 mg tablet 7.5 mg PO QDAY #30 tabs 08/15/24 09/28/24 Rx esomeprazole magnesium 20 mg 20 mg PO QDAY 09/28/24 09/28/24 History capsule,delayed release (Nexium 24HR) Exam Physical Exam Const alert, oriented x3 and no apparent distress Coding Level of Care Code Off vis,est,level 3 Exam Problem Focused Diagnoses Superior mesenteric vein thrombosis K55.069 Assessment and Plan Assessment and Plan (1) Superior mesenteric vein thrombosis: Status: Inactive Plan 44-year-old male with acute provoked superior mesenteric vein thrombosis found on CT scan of the abdomen and pelvis December 2023 following a complicated emergency right hemicolectomy for bowel obstruction by intussusception. Patient had abdominal sepsis abscess formation reexploration drainage and is on a prolonged course of antibiotics. He was started on anticoagulation with Eliquis in December 2023, concluded 6 months of therapy June 2024 and stopped. Has tolerated treatment without bleeding complications. No first-degree relatives with unexplained venous thromboembolic disease. Recommendations: 1-hypercoagulability testing is not indicated with this history. 2-long-term systemic anticoagulation is not indicated. Impression and recommendations were discussed with patient. Jericho Romero MD Felt Pad Cutter, [facility] Divisions of Medical Oncology Hematology Department of Internal Medicine [place] [phone] This note was generated using a voice r (more content not included)... Normal [facility] CRP SerPl-mCncon 09-25-2024 CRP [Mass/Vol] mg/L Normal <0.9 [facility] Comment on above: Order Comment: Speci men Type: BLOOD SPECIMENOrdering Facility: [facility] Address: [address] [place] [address] Performed By: #### 1 988-5 ####[facility] LABCLIA [id number] [place] [address] [place] ESR Westergren method (Bld) [Velocity]on 09-25-2024 ESR (Bld) [Velocity] 2 mm/h Normal 0-15 [facility] Comment on above: Order Comment: Speci men Type: BLOOD SPECIMENOrdering Facility: [facility] Address: [address] [place] [address] Performed By: #### 4 537-7 ####[facility] LABIA [id number] [address] OF [facility] Brain without Contraston Brain without Contrast [facility] Imaging Services [address] [place], [place] [address] Brain without Contrast MR#: [id number] Acct: [id number] Name: TERRIE ALLEN Rep #: [id number] : 1980 M 44 From: Mari dale MD PCP: Dr. Geronimo Lemus MD Status: REG CLI Study: Brain without Contrast Date of Exam: 09/11/24 Exam# [id number] Ordering Dr: Geronimo Lemus MD [id number] HISTORY: dizzy, vision changes, headache. TECHNIQUE: Multiplanar and multisequence MR images of the brain were obtained without contrast. 280 images. COMPARISON: None. FINDINGS: BRAIN PARENCHYMA: Normal morphology and position of the midline structures. No significant signal abnormality in the brain parenchyma. No abnormal focus of restricted diffusion. No acute intracranial hemorrhage identified. CSF SPACES: Cerebral ventricles, cortical sulci, and other extra-axial CSF spaces within normal limits in size for age. No significant midline shift or other mass effect.No extra-axial fluid collection. VASCULAR SYSTEM: Major intracranial flow voids are maintained. PARANASAL SINUSES AND MASTOID AIR CELLS: Small maxillary sinus mucous retention cysts. ORBITS: Symmetric contents. MRI/Brain without Contrast IMPRESSION: Unremarkable examination. No evidence for significant signal abnormality in the brain. Electronically Signed: Mari Baxter MD at 11:12 EST , CC: Dr. Geronimo Lemus MD Business Support Assistant: Signed Normal [facility] CRP SerPl-mCncon 09-08-2024 CRP [Mass/Vol] mg/L Normal <0.9 [facility] Comment on above: Order Comment: Speci men Type: BLOOD SPECIMENOrdering Facility: [facility] Address: [address] [place] [address] Performed By: #### 1 988-5 ####[facility] [id number] [place] [address] [place] ESR Westergren method (Bld) [Velocity]on 09-08-2024 ESR (Bld) [Velocity] 16 mm/h High 0-15 [facility] Comment on above: Order Comment: Speci men Type: BLOOD SPECIMENOrdering Facility: [facility] Address: [address] [place] [address] Performed By: #### 4 537-7 ####[facility] LABIA [id number] [place] [address] [place] Internal Medicine Office Vis ivan 08-12-2024 Internal Medicine Office Visit [facility] [address] [place] [address] [address] [place], [place] [address] OFFICE VISIT Date of Service: 08/13/24 MR#: [id number] Acct: [id number] Name: TERRIE ALLEN Rep #: [id number] : 1980 Provider: Dr. Geronimo javed MD Age/Sex: 44/M [place] [facility] Status: Signed Intake Vital Signs 06/04/24 08:49 08/13/24 15:20 Height 6 ft 3 in 6 ft 3 in Weight: 218 lb BMI 27.2 BP 110/74 Blood Pressure Location Lt brachial Position Sitting Respiration 14 Pulse 79 Pulse Source Monitor Temp 98.6 F Temp Source Temporal Pulse Oximetry (%) 98 Oxygen Delivery Method room air Intake Visit Reasons: DIZZINESS/ NAUSEOUS Fire Information Officer Required: No Is patient in pain?: No Allergies No Known Allergies Allergy (Verified 08/13/24 15:06) Medications ???Medication ???Instructions ???Recorded ???Confirmed ???Type tevin (Zingiber officinalis) 250 500 mg PO DAILY 05/25/24 08/13/24 History mg capsule omeprazole 40 mg capsule,delayed 40 mg PO DAILY #90 caps 07/20/24 08/13/24 Rx release Nurse's Note: States for months he has had dizziness and nausea. States he got off of atb's a month and a half ago after being on them for a long period of time and thought it was that. It has not subsided since stopping and was advised by infectious disease DrJeri to see pcp. States he has had motion sickness for about 10 years but never this extreme . Has been treating w/ Dramamine which barely lets him function even driving makes him feel nauseated. Denies any emesis. Has to sit down after driving to feel okayish. This happens every single day. Turning his head really makes dizziness worse , and any quick motions. States he had a episode of vertigo awhile ago and this feels different. States he also has a headache in front of forehead. feels pressure behind his eyes at times, has photosensitivty and bending makes it bad. States whens taring at a wall it appears to be " jumping at him" States around a week ago [facility] as he had some ear pain, and it was found to have an ear infection was prescribed neomycin drops, states that it felt like plugging his ears up he called and they swapped him augmentin 500mg bid. Also saw [facility] on 08/10/[address] Dr[address] Noel looked at ears and said that it was fine. States he does have ear pressure, and thinks there may be fluid. Vertigo test was done and nothing was found advised to go back to pcp. These sx's tend to be worse in the mornings. States around 130ish-2 it seems to be at it's best but then he drives a minimal distance and it starts. [facility] Medical History Difficulty swallowing History of IBS Gastric reflux Anterior abdomen avulsion History of abdominal abscess Nonhealing surgical wound Superior mesenteric vein thrombosis Sepsis without acute organ dysfunction Collar bone fracture COVID-19 Surgical History History of surgical procedure History of ankle surgery History of open reduction and internal fixation (ORIF) procedure Status post right hemicolectomy S/P exploratory laparotomy H/O hernia repair Family History Mother Diabetes Kidney disease had mass, removed portion of it. Father Diabetes Cancer prostate Colon cancer 75 Grandmother Cancer stomach Social History adopted: No household members: spouse number of children: 1 current occupational status: employed current occupation: [employer]. pets and animals: Yes pets and animals: dog(s) sexually active: Yes Smoking Status: Never smoker Electronic Cigarette Use: not used alcohol intake: never substance use type: does not use diet: lactose free caffeine: Yes (1-2) Type: carbonated beverages frequency: does not exercise seatbelt use: always do you feel safe at home: Yes HPI HPI Details: TERRIE ALLEN, is a 44 M who presents to the office today for a follow up. He recently did some blood work a couple of weeks ago. He is not due for any screening. He doesn't want a flu shot. He doesn't smoke and does need refills. He reports he is eating healthy and staying active as much as he is able to. Patient was hospitalized back in December after presenting with complaints of abdominal pain for 2 months which had been getting worse in addition to bloody bowel movements. Imaging showed findings of intussusception and he was admitted and underwent surgery with a right ernie-colectomy. Following surgery, he was found to have a post operative infection requiring antibiotics, wound vac placement and repeat surgeries. He reports that he completed hi (more content not included)... Normal [facility] CRP [Mass/Vol] 0.3 mg/dL Normal <0.9 [facility] Comment on above: Order Comment: Speci men Type: BLOOD SPECIMENOrdering Facility: [facility] Address: [address] [place] [address] Performed By: #### 1 988-5 ####[facility] [id number] [place] [address] [place] ESR Westergren method (Bld) [Velocity]on 08-07-2024 ESR (Bld) [Velocity] 2 mm/h Normal 0-15 [facility] Comment on above: Order Comment: Speci men Type: BLOOD SPECIMENOrdering Facility: [facility] Address: [address] [place] [address] Performed By: #### 4 537-7 ####[facility] [id number] [place] [id number] [place] Basic metabolic 2000 panelon 07-24-2024 Anion gap [Moles/Vol] 10 mmol/L Normal 8-[address] [facility] Comment on above: Order Comment: Speci men Type: BLOOD SPECIMENOrdering Facility: [facility] Address: [address] [place] [address] Performed By: #### 2 4321-2 ####[facility] [id number] [place] [id number] [place] Calcium [Mass/Vol] 10.0 mg/dL Normal 8.5-10.2 [facility] Comment on above: Order Comment: Speci men Type: BLOOD SPECIMENOrdering Facility: [facility] Address: [address] [place] [address] Performed By: #### 2 4321-2 ####[facility] MILLTOWNCLIA [id number] [place] [address] [place] Chloride [Moles/Vol] 104 mmol/L Normal 98-107 [facility] Comment on above: Order Comment: Speci men Type: BLOOD SPECIMENOrdering Facility: [facility] Address: [address] [place] [address] Performed By: #### 2 4321-2 ####[facility]ENTERWNCLIA [id number] [place] [address] [place] CO2 [Moles/Vol] 28 mmol/L Normal 22-30 [facility] Comment on above: Order Comment: Speci men Type: BLOOD SPECIMENOrdering Facility: [facility] Address: [address] [place] [address] Performed By: #### 2 4321-2 ####[facility] [id number] [place] [address] [place] Creatinine [Mass/Vol] 1.13 mg/dL Normal 0.73-1.[address] [facility] Comment on above: Order Comment: Speci men Type: BLOOD SPECIMENOrdering Facility: [facility] Address: [address] [place] [address] Performed By: #### 2 4321-2 ####[facility] [id number] [place] [address] [place] [facility] Creatinine and Glomerular filtration rate.predicted panel (S/P/Bld) 82 mL/min/1.73m??? Normal >=60 [facility] Comment on above: Order Comment: Speci men Type: BLOOD SPECIMENOrdering Facility: [facility] Address: [address] [place] [address] Result Comment: Tracy mated Glomerular Filtration Rate (eGFR) is calculated using the 2020 CKD-EPI creatinine equation. This equation utilizes serum creatinine, sex, and age as parameters. The creatinine assay has traceable calibration to isotope dilution-mass spectrometry. Refer to KDIGO guidelines for clinical interpretation. In patients with unstable renal function, e.g. those with acute kidney injury, the eGFR may not accurately reflect actual GFR. Performed By: #### 2 4321-2 ####[facility]CLIA [id number] [place] [address] [place] Glucose [Mass/Vol] 106 mg/dL High 74-99 [facility] Comment on above: Order Comment: Speci men Type: BLOOD SPECIMENOrdering Facility: [facility] Address: [address] [place] [address] Result Comment: The [place] Diabetes Association (ADA) provides guidance for cutoff values for fasting glucose and random glucose. The ADA defines fasting as no caloric intake for at least 8 hours. Fasting plasma glucose results between 100 to 125 mg/dL indicate increased risk for diabetes (prediabetes). Fasting plasma glucose results greater than or equal to 126 mg/dL meet the criteria for diagnosis of diabetes. In the absence of unequivocal hyperglycemia, results should be confirmed by repeat testing. In a patient with classic symptoms of hyperglycemia or hyperglycemic crisis, random plasma glucose results greater than or equal to 200 mg/dL meet the criteria for diagnosis of diabetes. Reference: Standards of Medical Care in Diabetes 2016, [place] Diabetes Association. Diabetes Care. 2016.39(Suppl 1). Performed By: #### 2 4321-2 ####[facility] [id number] [place] [address] [place] Potassium [Moles/Vol] 4.3 mmol/L Normal 3.7-5.[address] [facility] Comment on above: Order Comment: Speci men Type: BLOOD SPECIMENOrdering Facility: [facility] Address: [address] [place] [address] Performed By: #### 2 4321-2 ####[facility]ENTERWNCLIA [id number] [place] [address] [place] Sodium [Moles/Vol] 142 mmol/L Normal 136-144 [facility] Comment on above: Order Comment: Speci men Type: BLOOD SPECIMENOrdering Facility: [facility] Address: [address] [place] [address] Performed By: #### 2 4321-2 ####[facility] ISIAHWNCLISyeda [id number] [place] [address] [place] Urea nitrogen [Mass/Vol] 16 mg/dL Normal 9-24 [facility] Comment on above: Order Comment: Speci men Type: BLOOD SPECIMENOrdering Facility: [facility] Address: [address] [place] [address] Performed By: #### 2 4321-2 ####[facility] [id number] [place] [address] [place] CRP [facility] CRP [Mass/Vol] mg/L Normal <0.9 [facility] Comment on above: Order Comment: Speci men Type: BLOOD SPECIMENOrdering Facility: [facility] Address: [address] [place] [address] Performed By: #### 1 988-5 ####[facility] LABCLIA [id number] [place] [id number] [place] CT ABD/PEL W IVCONon 024 CT ABD/PEL W IVCON * * *Final Report* * * DATE OF EXAM: Jul 24 2024 3:26PM [facility] 0530 - CT ABD/PEL W IVCON / PROCEDURE REASON: Infection in abdomen (HCC) * * * * Physician Interpretation * * * * EXAMINATION: CT ABDOMEN AND PELVIS WITH IV CONTRAST CLINICAL HISTORY: Abdominal infection TECHNIQUE: CT of the abdomen and pelvis was performed using standard technique, scanning from just above the dome of the diaphragm to the symphysis pubis. MQ: CTAP_3 Contrast: IV: 100 ml of Omnipaque 350 Oral: 10 ml of Omni 240 10-25ml diluted with water CT Radiation dose: Integrated Dose-length product (DLP) for this visit = 620 mGy*cm. CT Dose Reduction Employed: Automated exposure control(AEC) and iterative recon COMPARISON: Outside, imported examination dated 03/20/2024. RESULT: Liver: Subcentimeter, low-attenuation lesions within liver are too small to characterize but are stable and statistically relate to subcentimeter cysts. Biliary: No biliary dilation. The gallbladder is markedly collapsed. Spleen: No mass. No splenomegaly. A small splenule seen within the left upper quadrant. Pancreas: There is no obvious focal discrete pancreatic mass or pancreatic ductal dilation. Adrenals: No mass. Kidneys: There is no hydronephrosis or perinephric fluid collection. GI tract: There are no dilated loops of bowel to suggest obstruction. Evidence of prior right hemicolectomy. Interval marked improvement, without complete resolution of fat stranding as well as phlegmonous change within the right lower quadrant, when compared to the prior examination. No focal discrete drainable abscess is identified. Lymph nodes: There are prominent, less than 1 cm abdominal lymph nodes, likely reactive. Mesentery/Peritoneum: No abdominal ascites. Retroperitoneum: No mass. Vasculature: No abdominal aortic aneurysm. Pelvis: Prominent, less than 1 cm pelvic lymph nodes are likely reactive. There is no pelvic mass or pelvic ascites. Trace right-sided hydrocele. 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 A few presumed bone islands are seen within the osseous structures. Vacuum phenomena is seen involving the sacroiliac joint spaces, bilaterally. Disc space narrowing is seen at L5-S1. Lower thorax: There is dependent atelectasis. IMPRESSION: Stable postoperative changes of prior right hemicolectomy. Interval marked improvement, without complete resolution of fat stranding as well as phlegmonous change within the right lower quadrant, when compared the prior examination. No focal discrete drainable abscess is identified. Business Support Assistant: PSCB Transcribe Date/Time: Jul 24 2024 4:32P Dictated by : AIDAN SALDANA MD This examination was interpreted and the report reviewed and electronically signed by: AIDAN SALDANA MD on Jul 24 2024 4:38PM EST [id number] Normal [facility] CT Abdomen and Pelvis W cont rast [place] 07-24-2024 IMPRESSION: Stable postoperative changes of prior right hemicolectomy. Interval marked improvement, without complete resolution of fat stranding as well as phlegmonous change within the right lower quadrant, when compared the prior examination. No focal discrete drainable abscess is identified. Business Support Assistant: DELGADO Transcribe Date/Time: Jul 24 2024 4:32P Dictated by : AIDAN SALDANA MD This examination was interpreted and the report reviewed and electronically signed by: AIDAN SALDANA MD on Jul 24 2024 4:38PM [facility] DIVISION OF RADIOLOGY * * *Final Report* * * DATE OF EXAM: Jul 24 2024 3:26PM [facility] 0530 - CT ABD/PEL W IVCON / PROCEDURE REASON: Infection in abdomen (HCC) * * * * Physician Interpretation * * * * EXAMINATION: CT ABDOMEN AND PELVIS WITH IV CONTRAST CLINICAL HISTORY: Abdominal infection TECHNIQUE: CT of the abdomen and pelvis was performed using standard technique, scanning from just above the dome of the diaphragm to the symphysis pubis. MQ: CTAP_3 Contrast: IV: 100 ml of Omnipaque 350 Oral: 10 ml of Omni 240 10-25ml diluted with water CT Radiation dose: Integrated Dose-length product (DLP) for this visit = 620 mGy*cm. CT Dose Reduction Employed: Automated exposure control(AEC) and iterative recon COMPARISON: Outside, imported examination dated 03/20/2024. RESULT: Liver: Subcentimeter, low-attenuation lesions within liver are too small to characterize but are stable and statistically relate to subcentimeter cysts. Biliary: No biliary dilation. The gallbladder is markedly collapsed. Spleen: No mass. No splenomegaly. A small splenule seen within the left upper quadrant. Pancreas: There is no obvious focal discrete pancreatic mass or pancreatic ductal dilation. Adrenals: No mass. Kidneys: There is no hydronephrosis or perinephric fluid collection. GI tract: There are no dilated loops of bowel to suggest obstruction. Evidence of prior right hemicolectomy. Interval marked improvement, without complete resolution of fat stranding as well as phlegmonous change within the right lower quadrant, when compared to the prior examination. No focal discrete drainable abscess is identified. Lymph nodes: There are prominent, less than 1 cm abdominal lymph nodes, likely reactive. Mesentery/Peritoneum: No abdominal ascites. Retroperitoneum: No mass. Vasculature: No abdominal aortic aneurysm. Pelvis: Prominent, less than 1 cm pelvic lymph nodes are likely reactive. There is no pelvic mass or pelvic ascites. Trace right-sided hydrocele. 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 A few presumed bone islands are seen within the osseous structures. Vacuum phenomena is seen involving the sacroiliac joint spaces, bilaterally. Disc space narrowing is seen at L5-S1. Lower thorax: There is dependent atelectasis. DIVISION OF RADIOLOGY Provider, [facility] - 07/24/2024 * * *Final Report* * * DATE OF EXAM: Jul 24 2024 3:26PM [facility] 0530 - CT ABD/PEL W IVCON / PROCEDURE REASON: Infection in abdomen (HCC) * * * * Physician Interpretation * * * * EXAMINATION: CT ABDOMEN AND PELVIS WITH IV CONTRAST CLINICAL HISTORY: Abdominal infection TECHNIQUE: CT of the abdomen and pelvis was performed using standard technique, scanning from just above the dome of the diaphragm to the symphysis pubis. MQ: CTAP_3 Contrast: IV: 100 ml of Omnipaque 350 Oral: 10 ml of Omni 240 10-25ml diluted with water CT Radiation dose: Integrated Dose-length product (DLP) for this visit = 620 mGy*cm. CT Dose Reduction Employed: Automated exposure control(AEC) and iterative recon COMPARISON: Outside, imported examination dated 03/20/2024. RESULT: Liver: Subcentimeter, low-attenuation lesions within liver are too small to characterize but are stable and statistically relate to subcentimeter cysts. Biliary: No biliary dilation. The gallbladder is markedly collapsed. Spleen: No mass. No splenomegaly. A small splenule seen within the left upper quadrant. Pancreas: There is no obvious focal discrete pancreatic mass or pancreatic ductal dilation. Adrenals: No mass. Kidneys: There is no hydronephrosis or perinephric fluid collection. GI tract: There are no dilated loops of bowel to suggest obstruction. Evidence of prior right hemicolectomy. Interval marked improvement, without complete resolution of fat stranding as well as phlegmonous change within the right lower quadrant, when compared to the prior examination. No focal discrete drainable abscess is identified. Lymph nodes: There are prominent, less than 1 cm abdominal lymph nodes, likely reactive. Mesentery/Peritoneum: No abdominal ascites. Retroperitoneum: No mass. Vasculature: No abdominal aortic aneurysm. Pelvis: Prominent, less than 1 cm pelvic lymph nodes are likely reactive. There is no pelvic mass or pelvic ascites. Trace right-sided hydrocele. 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 A few presumed bone islands are seen within the osseous structures. Vacuum phenomena is seen involving the sacroiliac joint spaces, bilaterally. Disc space narrowing is seen at L5-S1. Lower thorax: There is dependent atelectasis. IMPRESSION IMPRESSION: Stable postoperative changes of prior right hemicolectomy. Interval marked improvement, without complete resolution of fat stranding as well as phlegmonous change within the right lower quadrant, when compared the prior examination. No focal discrete drainable abscess is identified. Business Support Assistant: PSCB Transcribe Date/Time: Jul 24 2024 4:32P Dictated by : AIDAN SALDANA MD This examination was interpreted and the report reviewed and electronically signed by: AIDAN SALDANA MD on Jul 24 2024 4:38PM EST [facility] Radiology Study observation (narrative) [facility] CT Abdomen and Pelvis W cont rast IVOrdered By: Ccf Provider on 07-24-2024 [facility] ESR Westergren method (Bld) [Velocity]on 07-24-2024 ESR (Bld) [Velocity] 10 mm/h [facility] Comment on above: Order Comment: Speci men Type: BLOOD SPECIMENOrdering Facility: [facility] Address: [address] [place] [address] Performed By: #### 4 [id number] ####[facility] LABCLIA [id number] [address] [place] CNPJonelle 07-22-2024 CNPN Telephone (Gift Card Combo) ----- TERRIE ALLEN ([id number]) 1980 M Date Time Provider Department 07/22/24 KEVIN CORONA III During your visit today, we recorded the following information about you: Bernadette Reed RN 07/22/2024 3:52 PM Signed Patient called office to report progress since stopping azithromycin. Per patient, he still has nausea, intermittent bloating, and a poor appetite when he first gets up in the morning. This gradually improves throughout the day. Patient also c/o intermittent dizziness and light headedness, and reports one episode of vertigo while in bed "about two months ago." Patient stated that all of these symptoms have improved, but are still present. Patient has a CT scan and labs scheduled for 07/24. He would also like your opinion on whether he should see an ENT. ADDI Diaz Donald M III, MD 07/23/2024 4:31 PM Signed Thanks for update. Glad things are improving. Will see what labs and CT show. I think if still with vertigo and there was concern previously for benign paroxysmal positional vertigo would be good to see ENT. Allergies As of Date: 07/22/2024 (No Known Allergies) Date Reviewed: 03/23/2024 Reviewed by: Ann Choi, ADDI - Fully Assessed Reason for Visit: Patient Update [1234] Prescriptions as of 07/27/2024 - azithromycin (ZITHROMAX) 500 mg tablet Take 1 tablet by mouth once daily. - LORazepam (ATIVAN) 0.5 mg Take 1 mg by mouth three times a day as needed. - famotidine (PEPCID) 20 mg tablet Take 20 mg by mouth two times a day as needed. - ondansetron orally disintegrating (ZOFRAN ODT) 4 mg disintegrating tablet Take 1 tablet by mouth every 8 hours as needed for nausea/vomiting for up to 30 doses. - apixaban (ELIQUIS) 5 mg tab(s) Take 5 mg by mouth two times a day. - acetaminophen (TYLENOL) 325 mg tablet Take 3 tablets by mouth four times daily. - ondansetron (ZOFRAN) 4 mg tablet Take 1 tablet by mouth every 8 hours as needed for nausea/vomiting. 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] 01/31/2024 02/06/2024 Moderate protein-calorie malnutrition (HCC) [E4*01/31/2024 Open abdominal wall wound, initial encounter [S*01/31/2024 Actinomyces infection [A42.9] 01/31/2024 Pseudomonas aeruginosa infection [A49.8] 01/31/2024 Enterococcus faecalis infection [A49.8] 01/31/2024 Anaerobic bacterial infection [A49.8] 01/31/2024 Thrombus [I82.90] 01/31/2024 Chest wall pain [R07.89] 02/01/2024 02/06/2024 ROXANNA (acute kidney injury) (HCC) [N17.9] 02/01/2024 02/06/2024 Pleurisy [R09.1] 02/01/2024 02/06/2024 Alteration in skin integrity related to surgica*02/03/2024 Leukocytosis [D72.829] 02/03/2024 02/06/2024 Postprocedural intraabdominal abscess [T81.43XA*02/04/2024 Open wnd anterior abdomen [S31.109A] 02/19/2024 Intra-abdominal abscess (HCC) [K65.1] 03/21/2024 Wound dehiscence [T81.30XA] 03/22/2024 Diarrhea due to drug [K52.1] 03/22/2024 Chronic anticoagulation [Z79.01] 03/22/2024 Encounter Status:Closed by BERNADETTE REED on 07/27/24 Normal [facility] C-REACTIVE PROTEINon 024 CRP [Mass/Vol] mg/dL NINF - 0.9 mg/dL [facility] CRP [Mass/Vol]on 09-11-2024 Interpretation and review of laboratory results Normal [facility] CNPNon 07-07-2024 CNPN Telephone (INFDAK) ----- TERRIE ALLEN ([id number]) 1980 M Date Time Provider Department 07/07/24 KEVIN CORONA III During your visit today, we recorded the following information about you: Louisa Schilling 07/07/2024 3:30 PM Signed Pt unclear of instruction. Did you want him to have CT? He had labs today. Should he resume azithromycin or should he wait for test results? Thank you Kevin Hooker III, MD 07/07/2024 3:43 PM Signed He should NOT resume azithromycin. Yes, will order CT. Louisa Schilling 07/07/2024 4:13 PM Signed Pt informed waiting for CT order Víctor Guerrero 07/09/2024 3:32 PM Signed Patient called today about CT order not being placed. Please advise Kevin Pride III, MD 07/10/2024 8:57 AM Signed It's in now. Sorry for delay. I was going to place when I wrote his note and have not gone back in to do his note yet. He will need to have basic metabolic panel before the CT. CT ordered of abd/pel with oral and IV contrast. Thanks. Víctor Huerta 07/10/2024 2:20 PM Signed Patient informed Víctor Huerta Allergies As of Date: 07/07/2024 (No Known Allergies) Date Reviewed: 03/23/2024 Reviewed by: Ann Choi, RN - Fully Assessed Reason for Visit: Orders [681] Prescriptions as of 07/10/2024 - iv contrast (will be provided with radiology test) CT ABD/PEL -Inject, intravenously, once for 1 dose.No IV access, insert saline lock prior to the beginning of sedation, infusion, injection of imaging exam. Discontinue saline lock post exam. If Pt. has a central line or IVAD, may access for administration according to line specific nursing protocol. Once exam is complete flush line and de-access according to line specific nursing protocol in the CT contrast administration guidelines link. - enteric contrast (will be provided with radiology test) For CT ABD/PEL W IVCON Routine order Administer, As Directed One Time Only, via Oral, Rectal, both Oral and Rectal, Enteric Tube, Stoma or Indwelling Catheter, Enteric Contrast as designated per enteric contrast guidelines - azithromycin (ZITHROMAX) 500 mg tablet Take 1 tablet by mouth once daily. - LORazepam (ATIVAN) 0.5 mg Take 1 mg by mouth three times a day as needed. - famotidine (PEPCID) 20 mg tablet Take 20 mg by mouth two times a day as needed. - ondansetron orally disintegrating (ZOFRAN ODT) 4 mg disintegrating tablet Take 1 tablet by mouth every 8 hours as needed for nausea/vomiting for up to 30 doses. - apixaban (ELIQUIS) 5 mg tab(s) Take 5 mg by mouth two times a day. - acetaminophen (TYLENOL) 325 mg tablet Take 3 tablets by mouth four times daily. - ondansetron (ZOFRAN) 4 mg tablet Take 1 tablet by mouth every 8 hours as needed for nausea/vomiting. 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] 01/31/2024 02/06/2024 Moderate protein-calorie malnutrition (HCC) [E4*01/31/2024 Open abdominal wall wound, initial encounter [S*01/31/2024 Actinomyces infection [A42.9] 01/31/2024 Pseudomonas aeruginosa infection [A49.8] 01/31/2024 Enterococcus faecalis infection [A49.8] 01/31/2024 Anaerobic bacterial infection [A49.8] 01/31/2024 Thrombus [I82.90] 01/31/2024 Chest wall pain [R07.89] 02/01/2024 02/06/2024 ROXANNA (acute kidney injury) (HCC) [N17.9] 02/01/2024 02/06/2024 Pleurisy [R09.1] 02/01/2024 02/06/2024 Alteration in skin integrity related to surgica*02/03/2024 Leukocytosis [D72.829] 02/03/2024 02/06/2024 Postprocedural intraabdominal abscess [T81.43XA*02/04/2024 Open wnd anterior abdomen [S31.109A] 02/19/2024 Intra-abdominal abscess (HCC) [K65.1] 03/21/2024 Wound dehiscence [T81.30XA] 03/22/2024 Diarrhea due to drug [K52.1] 03/22/2024 Chronic anticoagulation [Z79.01] 03/22/2024 Encounter Status:Closed by VÍCTOR HUERTA on 07/10/24 Normal [facility] CRP SerPl-mCncon 07-07-2024 CRP [Mass/Vol] mg/L Normal <0.9 [facility] Comment on above: Order Comment: Cait hill Type: BLOOD SPECIMENOrdering Facility: [facility] Address: [address] [place] [address] Performed By: #### 1 [phone] ####[facility] LABCLIA [id number] [place] [address] [place] ESR Westergren method (Bld) [Velocity]on 07-07-2024 ESR (Bld) [Velocity] 2 mm/h [facility] Interpretation and review of laboratory results Normal [facility] ESR (Bld) [Velocity] 2 mm/h Normal 0-15 [facility] Comment on above: Order Comment: Walkeri sergio Type: BLOOD SPECIMENOrdering Facility: [facility] Address: [address] [id number] Performed By: #### 4 [id number] ####[facility] LABCLIA [id number] [facility]ENTERMariela [facility] N[facility]LESBrian [id number] [place] [id number] [place] Cerv Spine 4 or 5 Viewson Cerv Spine 4 or 5 Views [facility] Imaging Services [address] [place] [address] Cerv Spine 4 or 5 Views MR#: [id number] Acct: [id number] Name: TERRIE ALLEN Rep #: [id number] : 1980 M 44 From: Chidi Carvajal MD PCP: Dr. Geronimo Lemus MD Status: REG CLI Study: Cerv Spine 4 or 5 Views Date of Exam: 06/10/24 Exam# [id number] Ordering Dr: EMILY MITCHELL DO [id number] STUDY: X-RAY - CERVICAL SPINE REASON FOR EXAM: Male, 44 years old. CERVICALGIA TECHNIQUE: 5 view(s) of the cervical spine were obtained. COMPARISON: None FINDINGS: Normal anterior atlantoaxial articulation. Normal odontoid process. Normal cervical lordosis. Normal vertebral bodies and endplates. Normal disc space heights. Normal visualized intervertebral neuroforamina. The soft tissue structures are unremarkable. RAD/Cerv Spine 4 or 5 Views IMPRESSION: Normal x-ray examination of the visualized cervical spine. Electronically Signed: Chidi Carvajal MD at 13:10 EDT , CC: Dr. Geronimo Lemus MD; EMILY MITCHELL DO Business Support Assistant: Signed [facility] ----- TERRIE ALLEN ([id number]) 1980 M Date Time Provider Department 06/08/24 KEVIN CORONA III INFELSIE During your visit today, we recorded the following information about you: Víctor Huerta 06/08/2024 9:58 AM Signed Patient called with an update of the liquid form of Zithromax. Patient states that there was not a difference but prefers pill form because its easier. Patient is requesting if you could write a script for pill form. Please advise. Kevin Pride III, MD 06/08/2024 11:00 AM Signed Will do. Thanks. New rx for azithromycin pill through 08/21 sent to his [facility]. Víctor Huerta 06/09/2024 10:21 AM Signed Patient notified. Víctor Huerta Allergies As of Date: 06/08/2024 (No Known Allergies) Date Reviewed: 03/23/2024 Reviewed by: Ann Choi, RN - Fully Assessed Reason for Visit: Patient Update [1234] Order(s):azithromycin (ZITHROMAX) 500 mg tabletTake 1 tablet by mouth once daily.Disp: 30 tabletRfl: 2 Prescriptions as of 06/09/2024 - azithromycin (ZITHROMAX) 500 mg tablet Take 1 tablet by mouth once daily. - LORazepam (ATIVAN) 0.5 mg Take 1 mg by mouth three times a day as needed. - famotidine (PEPCID) 20 mg tablet Take 20 mg by mouth two times a day as needed. - ondansetron orally disintegrating (ZOFRAN ODT) 4 mg disintegrating tablet Take 1 tablet by mouth every 8 hours as needed for nausea/vomiting for up to 30 doses. - apixaban (ELIQUIS) 5 mg tab(s) Take 5 mg by mouth two times a day. - acetaminophen (TYLENOL) 325 mg tablet Take 3 tablets by mouth four times daily. - ondansetron (ZOFRAN) 4 mg tablet Take 1 tablet by mouth every 8 hours as needed for nausea/vomiting. 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] 01/31/2024 02/06/2024 Moderate protein-calorie malnutrition (HCC) [E4*01/31/2024 Open abdominal wall wound, initial encounter [S*01/31/2024 Actinomyces infection [A42.9] 01/31/2024 Pseudomonas aeruginosa infection [A49.8] 01/31/2024 Enterococcus faecalis infection [A49.8] 01/31/2024 Anaerobic bacterial infection [A49.8] 01/31/2024 Thrombus [I82.90] 01/31/2024 Chest wall pain [R07.89] 02/01/2024 02/06/2024 ROXANNA (acute kidney injury) (HCC) [N17.9] 02/01/2024 02/06/2024 Pleurisy [R09.1] 02/01/2024 02/06/2024 Alteration in skin integrity related to surgica*02/03/2024 Leukocytosis [D72.829] 02/03/2024 02/06/2024 Postprocedural intraabdominal abscess [T81.43XA*02/04/2024 Open wnd anterior abdomen [S31.109A] 02/19/2024 Intra-abdominal abscess (HCC) [K65.1] 03/21/2024 Wound dehiscence [T81.30XA] 03/22/2024 Diarrhea due to drug [K52.1] 03/22/2024 Chronic anticoagulation [Z79.01] 03/22/2024 Prescriptions ordered this encounter Disp Refills Start End AZITHROMYCIN 500 MG TABLET 30 t* 2 06/08/2024 08/21/2024 Route: ORAL Sig: Take 1 tablet by mouth once daily. Medications Discontinued During This Encounter Prescriptions - azithromycin (ZITHROMAX) 200 mg/5 mL suspension (Discontinued) Take 12.5 mL by mouth once daily. Encounter Status:Closed by VÍCTOR HUERTA on 06/09/24 Normal [facility] EGD Reporton 06-04-2024 EGD Report [facility] Medical Records Department [address] [place] [address] EGD Report MR#: [id number] Acct: [id number] Name: TERRIE ALLEN Rep #: [id number] : 1980 44 From: Ricco García MD PCP: Dr. Geronimo Lemus MD Status:[facility] Patient Name: Terrie Allen Procedure Date: 06/04/2024 9:40 AM Date of : 1980 Age: 44 Procedure: Upper GI endoscopy Indications: Epigastric abdominal pain, Nausea Providers: Ricco García MD Referring MD: Geronimo Lemus Md Medicines: See the Anesthesia note for documentation of the administered medications Patient Profile: Patient has symptoms of chronic epigastric abdominal pain and chronic nausea. Complications: No immediate complications. Estimated blood loss: Minimal. Procedure: Pre-Anesthesia Assessment: - The heart rate, respiratory rate, oxygen saturations, blood pressure, adequacy of pulmonary ventilation, and response to care were monitored throughout the procedure. After obtaining informed consent, the endoscope was passed under direct vision. Throughout the procedure, the patient's blood pressure, pulse, and oxygen saturations were monitored continuously. The Endoscope was introduced through the mouth, and advanced to the second part of duodenum. The upper GI endoscopy was accomplished without difficulty. The patient tolerated the procedure well. Scope In: 10:05:17 AM Scope Out: 10:21:33 AM Total Procedure Duration Time 0 hours 16 minutes 16 seconds Findings: No gross lesions were noted in the duodenal bulb, in the first portion of the duodenum and in the second portion of the duodenum. No biopsies or other specimens were collected for this exam. Localized minimal inflammation characterized by erythema was found in the gastric antrum. Biopsies were taken with a cold forceps for Helicobacter pylori testing. Estimated blood loss was minimal. The Z-line was irregular and was found 43 cm from the incisors. Biopsies were taken with a cold forceps for histology. Estimated blood loss was minimal. Localized mild mucosal changes characterized by altered texture and an abnormal appearance suspicious for Heredia's were found in the upper third of the esophagus. Biopsies were taken with a cold forceps for histology. Estimated blood loss was minimal. The exam was otherwise without abnormality. Impression: - No gross lesions in the duodenal bulb, in the first portion of the duodenum and in the second portion of the duodenum. No specimens collected. - Gastritis. Biopsied. - Z-line irregular, 43 cm from the incisors. Biopsied. - Texture changed, abnormal (rule out Heredia's esophagus) mucosa in the esophagus. Biopsied. - The examination was otherwise normal. Recommendation: - Discharge patient to home (via wheelchair). - Resume previous diet today. - Continue present medications. - Await pathology results. - No aspirin, ibuprofen, naproxen, or other non-steroidal anti-inflammatory drugs for 2 days after biopsy. - Telephone my office for pathology results in 1 week. Procedure Code(s): --- Professional --- 91971, Esophagogastroduodenoscop y, flexible, transoral; with biopsy, single or multiple Diagnosis Code(s): --- Professional --- K29.70, Gastritis, unspecified, without bleeding K22.89, Other specified disease of esophagus R10.13, Epigastric pain R11.0, Nausea CPT copyright 2021 [employer]. All rights reserved. The codes documented in this report are preliminary and upon histotechnician review may be revised to meet current compliance requirements. Ricco García MD 06/04/2024 10:30:29 AM This report has been signed electronically. Number of Addenda: 0 Note Initiated On: 06/04/2024 9:40 AM 06/04/24 1030 Date Ricco García MD Cosigner Signature: Date (if indicated) CC: Dr. Geronimo Lemus MD; Dr. Ricco García MD Date Dictated: 06/04/24939 Date Transcribed: Business Support Assistant: MB Signed Normal [facility] H Pylori (initial)on H Pylori (initial) ----- Patient Age/Sex Location Account Attending Physician TERRIE ALLEN 44/M EN [id number] Dr. Ricco García MD Specimen: [id number] Received: 06/04/24 Status: LISSETT Raffaele Num: [id number] Spec Type: IMMUNO Subm Dr: Dr. Ricco García MD PHYSICIAN INSTITUTION [place] [address] SPECIMEN INFORMATION: Tissue Source: A- Antrum biopsy Clinical Info: Nausea, epigastric pain Specimen Number: [id number] CPT code: 86273 METHODOLOGY: Deparaffinized sections of prefer/formalin-fixed tissue or PAP/DQ stained slides are incubated with monoclonal/polyclonal antibodies/oligonucleotid e probes. Localization is made via biotin free immunoperoxidase method. Appropriate controls are performed and reacted as expected. Results on target cell population are indicated in the following table: RESULTS: ANTIBODY / CLONE RESULT Block A H Pylori (polyclonal) negative These tests were developed and their performance characteristics determined by [facility]. They may not have been cleared or approved by the U.S. Food and Drug Administration. The FDA has determined that such clearance or approval is not necessary. The above immunohistochemical/dualI SH markers are ordered and reviewed by the Pathologist. INTERPRETATION: A. Antrum, biopsy: Negative for Helicobacter pylori organisms. AM/mr 06/05/2024 Signed (signature on file) Dr. Garett Pelaez MD 06/08/24 1204 Normal [facility] Comment on above: Performed By: #### P H.PYLORI #### [facility] [address] [facility] [address] [facility] [place], [address] MR/POSTOP.Miryam 06-04-2024 MR/POSTOP.[facility] Medical Records Department [address] [place] [address] Anesthesia Postop Eval I 06/04/24 1032 MR#: [id number] Acct: [id number] Name: TERRIE ALLEN Rep #: [id number] : 1980 44 From: Braeden Blake PCP: Dr. Geronimo Lemus MD Status:REG SDC Y Race: C Location: [place] [address] Anesthesia: Postop Eval I Current Vital Signs Temperature: 97.2 F Pulse Rate: 44 Blood Pressure: 116/70 Respiratory Rate: 14 Pulse Ox: 97 Oxygen Delivery Method: Room Air Assessment Airway patent: Yes Spontaneous unlabored respirations: Yes Mental status: Asleep nausea: No Vomiting: No Anesthesia Complication: No Fluid Hydration Crystalloid volume administer (ml): 600 Total IV fluid infused: 600 Progress Note Anesthesia document: Postop Eval 1 completed: Yes 06/04/24 1033 Date Braeden Blake Analiigner Signature: Date CC: Signed Normal [facility] MR/AEHEEEDD5bj 06-04-2024 [facility] Medical Records Department [address] [place] [address] Anesthesia Postop Eval II 06/04/24 1148 MR#: [id number] Acct: [id number] Name: TERRIE ALLEN Rep #: [id number] : 1980 44 From: Bulmaro Aguilar MD PCP: Dr. Geronimo Lemus MD Status:[facility] Y Race: C Location: EN Anesthesia Postop Eval I Sum Postop Eval Completion status Anesthesia document: Postop Eval 1 completed: Yes Anesthesia Postop Eval I Summary Anesthesia Postop Eval I Summary: Anesthesia Postop Eval I: Assessment Summary Airway patent Yes 06/04/24 10:33 [email or web address] Spontaneous unlabored Yes 06/04/24 10:33 [email or web address] respirations Mental status Asleep 06/04/24 10:33 [email or web address] nausea No 06/04/24 10:33 [email or web address] Vomiting No 06/04/24 10:33 [email or web address] Anesthesia Postop Eval I: Fluid Summary Crystalloid volume administer 600 06/04/24 10:33 [email or web address] (ml) Colloids volume administered ( ml) Blood Product volume administered (ml) Total IV fluid infused 600 06/04/24 10:33 [email or web address] Anesthesia Postop Eval I: Summary Notes Anesthesia Complication No 06/04/24 10:33 [email or web address] Anesthesia Complication Comment: Post-operative progress note Anesthesia: Postop Eval II Evaluation Mental status: Awake Pain Level: 0 nausea: No Vomiting: No 06/04/24 1148 Date Bulmaro Hart Signature: Date CC: Signed Normal [facility] Special Stain Group Ion 08-0 Special Stain Group I ------- Patient Age/Sex Location Account Attending Physician TERRIE ALLEN 44/M EN [id number] Dr. Ricco García MD Specimen: [id number] Received: 06/04/24 Status: LISSETT [place] Num: [id number] Spec Type: Gastric Bx Subm Dr: Dr. Ricco García MD HEADER OPERATION: EGD with biopsies PRE-OP DIAGNOSIS: Nausea, epigastric pain TISSUE SUBMITTED: A- Antrum biopsy, B- Gastroesophageal junction biopsy, C- Abnormal mucosa of proximal esophagus biopsy MICROSCOPIC DIAGNOSIS A. Antrum, biopsy: Mild gastritis. See microscopic description and comment. B. Gastroesophageal junction, biopsy: Fragments of gastroesophageal mucosa with moderate chronic inflammation. Intestinal metaplasia (goblet cell metaplasia) not identified. See comment. C. Abnormal mucosa, proximal esophagus, biopsy: A fragment of gastric mucosa with mild chronic inflammation. Intestinal metaplasia (goblet cell metaplasia) not identified. See comment. CHEN/ 06/05/2024 COMMENT A. The results of immunohistochemistry for Helicobacter pylori will be reported separately ([id number]). B. Alcian blue/PAS stain with matched control is used in the evaluation of the specimen. The specimen predominantly consists of gastric mucosa. C. Alcian blue/PAS stain with matched control is used in the evaluation of the specimen. MICROSCOPIC DESCRIPTION Slides are reviewed. A. The specimen shows fragments of gastric mucosa with chronic inflammatory cell infiltrates in the lamina propria consisting of lymphocytes and plasma cells, consistent with mild chronic gastritis. GROSS DESCRIPTION A. Received in fixative is one container labeled with the patient's name and designated "Antrum biopsy." The specimen consists of two irregular fragments of light warren soft tissue that in aggregate measure 0.4 x 0.3 x 0.1 cm. The specimen is totally submitted in one cassette. B. Received in fixative is one container labeled with the patient's name and designated "GE junction biopsy." The specimen consists of multiple irregular fragments of light warren soft tissue that in aggregate measure 0.6 x 0.3 x 0.1 cm. The specimen is totally submitted in Patient Age/Sex Location Account Attending Physician TERRIE ALLEN 44/M EN [id number] Dr. Ricco García MD one cassette. C. Received in fixative is one container labeled with the patient's name and designated Abnormal mucosa of proximal esophagus biopsy." The specimen consists of one irregular fragment of light warren soft tissue that measures 0.3 x 0.3 x 0.1 cm. The specimen is totally submitted in one cassette. Flash 06/04/2024 TC:3 CPT:19745s1,06961k1 ADDENDUM Addendum 1 Entered: 06/08/24-950 C. The findings may represent ectopic gastric mucosa. Correlation with clinical, endoscopic findings and appropriate follow up are necessary. This case is discussed with Dr. García on 06/08/2024 Flash 06/08/2024 Addendum Signed (signature on file) Dr. Garett Pelaez MD 06/08/24 1000 Patient Age/Sex Location Account Attending Physician TERRIE ALLEN 44/M EN [id number] Dr. Ricco García MD Signed (signature on file) Dr. Garett Pelaez MD 06/05/24 1314 Normal [facility] Comment on above: Performed By: #### P SSI ####[facility] [id number] [place], [place], [address] [facility] 05-28-2024 CNPN Telephone (INFDAK) ----- TERRIE ALLEN ([id number]) 1980 M Date Time Provider Department 05/28/24 KEVIN CORONA III During your visit today, we recorded the following information about you: Bernadette Reed RN 05/28/2024 12:28 PM Signed Telephone call from TRISTEN García with [facility]. Ni asked if patient needs further imaging prior to stopping antibiotics. Her last office notes and patient's last CT report from 04-03-24 have been placed in your folder for review. Also, does patient still need a virtual appointment scheduled? ADDI Diaz Donald M III, MD 05/28/2024 12:[address] report. Noted thick walled fluid collection measures 2 x 1.7cm. my opinion would be that we repeat imaging at end of antibiotic therapy unless surgery team feels needs to be done sooner. I see they noted patient hoping to stop azithromycin prior to 6 months. With the actinomyces and genevieve course would prefer the full six months. Let's schedule him for visit (either in person or virtual) in one of the next couple of office blocks. Please let Dr. García and Ni Alexander from [facility] know what I'm thinking (could just send this note). Thanks. Will reach out to them again after visit with patient. Bernadette Reed RN 05/28/2024 1:10 PM Signed Patient scheduled for 07/06/24 at 1430. I will fax this note to [facility]. Bernadette Reed RN Allergies As of Date: 05/28/2024 (No Known Allergies) Date Reviewed: 03/23/2024 Reviewed by: Ann Choi RN - Fully Assessed Reason for Visit: Patient Question [1843] Prescriptions as of 05/28/2024 - azithromycin (ZITHROMAX) 200 mg/5 mL suspension Take 12.5 mL by mouth once daily. - LORazepam (ATIVAN) 0.5 mg Take 1 mg by mouth three times a day as needed. - famotidine (PEPCID) 20 mg tablet Take 20 mg by mouth two times a day as needed. - ondansetron orally disintegrating (ZOFRAN ODT) 4 mg disintegrating tablet Take 1 tablet by mouth every 8 hours as needed for nausea/vomiting for up to 30 doses. - apixaban (ELIQUIS) 5 mg tab(s) Take 5 mg by mouth two times a day. - acetaminophen (TYLENOL) 325 mg tablet Take 3 tablets by mouth four times daily. - ondansetron (ZOFRAN) 4 mg tablet Take 1 tablet by mouth every 8 hours as needed for nausea/vomiting. 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] 01/31/2024 Pseudomonas aeruginosa infection [A49.8] 01/31/2024 Enterococcus faecalis infection [A49.8] 01/31/2024 Anaerobic bacterial infection [A49.8] 01/31/2024 Thrombus [I82.90] 01/31/2024 Chest wall pain [R07.89] 02/01/2024 02/06/2024 ROXANNA (acute kidney injury) (HCC) [N17.9] 02/01/2024 02/06/2024 Pleurisy [R09.1] 02/01/2024 02/06/2024 Alteration in skin integrity related to surgica*02/03/2024 Leukocytosis [D72.829] 02/03/2024 02/06/2024 Postprocedural intraabdominal abscess [T81.43XA*02/04/2024 Open wnd anterior abdomen [S31.109A] 02/19/2024 Intra-abdominal abscess (HCC) [K65.1] 03/21/2024 Wound dehiscence [T81.30XA] 03/22/2024 Diarrhea due to drug [K52.1] 03/22/2024 Chronic anticoagulation [Z79.01] 03/22/2024 Encounter Status:Closed by BERNADETTE REED on 05/28/24 [facility] Surgery Visit Reporton 05-25 Surgery Visit Report [facility] [address] [place] [address] OFFICE VISIT Date of Service: 05/25/24 MR#: [id number] Acct: [id number] Name: TERRIE ALLEN Rep #: [id number] : 1980 Provider: ALLEN little Age/Sex: 43/M Location: [facility] Status: Signed Intake Vital Signs 04/10/24 21:49 05/24/24 12:31 Height 6 ft 3 in 6 ft 3 in Intake Visit Reasons: WOUND CHECK Chief Complaint: wound check Accompanied by: Is patient in pain?: No Allergies No Known Allergies Allergy (Verified 05/25/24 14:43) Medications ???Medication ???Instructions ???Recorded ???Confirmed ???Type azithromycin 500 mg tablet 500 mg PO QDAY 03/24/24 05/24/24 History apixaban 5 mg tablet (Eliquis) 5 mg PO BID #60 tabs 04/08/24 05/24/24 Rx ondansetron 4 mg disintegrating 4 mg PO Q8H 10 days #30 tabs 05/24/24 05/24/24 Rx tablet tevin (Zingiber officinalis) 250 500 mg PO DAILY 05/25/24 05/25/24 History mg capsule tramadol 50 mg tablet 50 mg PO DAILY #14 tabs 05/26/24 05/26/24 Rx Subjective Details: Patient returns for a follow-up visit. Patient notes he is overall feeling much improved. He noted a slight set back which started last Saturday when he started to not feel well. He stated this led to a dizziness feeling especially when rolling over in bed. He felt as though he would keep rolling. He notes going to the urgent care where he was diagnosed with vertigo. He was placed on Zofran and meclizine. He notes the meclizine has a similar effect as Dramamine and makes him feel foggy. Patient notes he tried the Letitia maneuver at home with good success. Patient notes feeling slightly dizzy at today's appointment. He denies the meclizine helped with the nausea. He notes taking tevin daily, which has helped with his morning nausea. He notes instead of feeling nauseated until 12 pm (noon), he is able to feel better by 0900 AM. Patient does not notice a difference with taking the famotidine in the morning daily. He notes his appetite is pretty normal at this point. Patient notes he continues to include protein within his diet. He is attempting to stay hydrated. He denies any concerns with bowel movements. He notes his back pain has improved. He notes receiving back exercises from physical therapy. He notes on a rare occasion he will feel a twinge in his back. He denies any fever at this time. He notes occasional pulling cessation at his midline incision site. He any drainage from the incision site. Patient continues on azithromycin daily per Dr. Law. Patient does not currently have a follow-up appointment with infectious disease. Patient does not currently have a CT scan scheduled of his ab/pel. Patient's previous history below: Patient is a 43 y/o M I am following s/p Hand-assisted laparoscopic right hemicolectomy by Dr. García on 01/11/24. Patient had developed a post-operative intraabdominal abscess and was returned to surgery for a washout and drain placement by Dr. García on 01/19/24. Patient continued to feel poorly during his hospitalization and despite his washout surgery, patient developed another intraabdominal abscess. Patient was then transferred to [facility] on 01/30/24, where he had interventional radiology place a drain. Patient remained hospitalized for an additional week and a half prior to discharge to home. Patient had continued to have an open abdominal incision for which a wound vac was placed. Patient was following with the wound center upon discharge. Patient had reconnected with our office after discharge from [facility]. Patient was evaluated by Dr. García for continuation of Eliquis for an incidental superior mesenteric blood clot during his hospitalization. Patient does not have a PCP and needed a refill on the Eliquis. Patient and his were finding it hard to reconnect with the physicians at [facility] and contacted our office to assist with ongoing care. Patient has been seen in our office for continuation of care of the abdominal wound. Patient's wound vac has since been discontinued and he has been packing the open wound with plain packing twice a day and tolerating these changes well. Patient was noted to develop a fever last Saturday, 03/20. Patient presented to [facility] ED. CT scan of the ab/pel was obtained demonstrating a thickening of the molina of the distal ileum at the anastomosis consistent with inflammatory changes and stranding in the fat. There is also a small thick walled fluid density at the operative site with phlegmonous process and evolving abscess measuring 2.8 x 1.3 cm. Patient was transferred to [facility]. Patient notes they did not place a drain as the fluid collection is too vague and small in order to place a drain appropriately. Patient notes he was evaluated by infectious dis (more content not included)... Normal [facility] Urgent Care Visit Reporton 0 05-24-2024 Urgent Care Visit Report [facility] [address], [address] [place] [address] OFFICE VISIT Date of Service: 05/24/24 MR#: [id number] Acct: [id number] Name: TERRIE ALLEN Rep #: [id number] : 1980 Provider: DURGA magallanes Age/Sex: 43/M Location: [facility] Status: Signed Intake Vital Signs 04/10/24 21:49 05/24/24 12:31 Height 6 ft 3 in 6 ft 3 in Weight: 200 lb BMI 25.0 BP 110/70 Blood Pressure Location Lt brachial Position Sitting Respiration 16 Pulse 76 Pulse Source NIBP Temp 98.7 F Temp Source Temporal Pulse Oximetry (%) 98 Oxygen Delivery Method room air Intake Visit Reasons: Vertigo Chief Complaint: vertigo Fire Information Officer Required: No Is patient in pain?: No Allergies No Known Allergies Allergy (Verified 05/24/24 12:46) Medications ???Medication ???Instructions ???Recorded ???Confirmed ???Type azithromycin 500 mg tablet 500 mg PO QDAY 03/24/24 05/24/24 History apixaban 5 mg tablet (Eliquis) 5 mg PO BID #60 tabs 04/08/24 05/24/24 Rx famotidine 20 mg tablet (Pepcid AC) 20 mg PO DAILY heartburn #30 tabs 04/28/24 05/24/24 Rx meclizine 25 mg tablet 25 mg PO BID PRN dizziness 10 days 05/24/24 05/24/24 Rx #20 tabs ondansetron 4 mg disintegrating #2 Samples 05/24/24 05/24/24 Sample tablet ondansetron 4 mg disintegrating 4 mg PO Q8H 10 days #30 tabs 05/24/24 05/24/24 Rx tablet Nurse's Note: off balance feeling and nausea since 0200. pt rolled over in bed and felt as if he kept rolling. any movement of head at all worsens s/s. denies ear pain, recent illness, head injury, history of same. pt given zofran 4mg po x2 today at 1245, ok'd by JR. has had several abdominal surgeries between december and february 2024 including sepsis. abd incisions healing well and with NO signs of infection, pt afebrile at this time. pt has known abdominal ab scess being watched with CT scans and last known was slightly improved. upcoming appt with Ni Alexander in general surgery to re-evaluate. [facility] Medical History COVID-19 Superior mesenteric vein thrombosis Sepsis without acute organ dysfunction Anterior abdomen avulsion History of abdominal abscess Nonhealing surgical wound Collar bone fracture Surgical History S/P exploratory laparotomy History of surgical procedure History of ankle surgery History of open reduction and internal fixation (ORIF) procedure Status post right hemicolectomy H/O hernia repair Family History Mother Diabetes Kidney disease had mass, removed portion of it. Father Diabetes Cancer prostate Colon cancer 75 Grandmother Cancer stomach Social History adopted: No household members: spouse number of children: 1 current occupational status: employed current occupation: [employer]. pets and animals: Yes pets and animals: dog(s) sexually active: Yes Smoking Status: Never smoker Electronic Cigarette Use: not used alcohol intake: never substance use type: does not use diet: lactose free caffeine: Yes (1-2) Type: carbonated beverages frequency: does not exercise seatbelt use: always do you feel safe at home: Yes HPI HPI Chief Complaint: vertigo Details: TERRIE ALLEN, is a 43 M who presents to the office today for dizziness. He does acknowledge a recent abdominal surgery and reoccurring surgeries for infection. He states this occurred early this morning when turning in bed. He states he turned from 1 side to the other and felt like he was continue to roll. He denies abdominal pain, shortness of breath, chest pain, lightheadedness, syncope, near syncope, fever, or chills. His symptoms are made worse with movement. He does acknowledge associated nausea. ROS Const Constitutional: No body ache, chills, fatigue, fever(s), headache(s) or change in appetite Eyes Eyes: No change in vision ENT ENT: Positive for dizziness/vertigo and balance problems; No ear or mastoid pain, ear discharge, ear pressure, tinnitus, nosebleed/epistaxis, nasal congestion, sinus pressure, sinus pain, nasal discharge, post nasal drip, headache(s), difficulty swallowing, hoarseness or sore throat Resp Respiratory: No cough, change in phlegm color, chest congestion, hemoptysis, pain on inspiration, shortness of breath, pain with cough, stridor or wheezing Cardio Cardiology: No chest pain at rest, chest pain with exertion, shortness of breath, dyspnea on exertion or lightheadedness Gastro GI: Positive for nausea/dyspepsia; No abdominal pain, change in bowel habits or difficulty swallowing Neuro Neurology: No headache(s) Psych Psychiatric: No change in miah (more content not included)... Normal [facility] 04-10-2024 MATT Telephone (INFDAK) ----- TERRIE ALLEN ([id number]) 1980 M Date Time Provider Department 04/10/24 KEVIN CORONA III During your visit today, we recorded the following information about you: Louisa Schilling 04/10/2024 8:48 AM Signed Pt states azithromycin is causing nausea and abdominal issues. He has tried taking this with and without food. He started taking it at night to sleep through" the side effects. He feels this is causing lack of motivation and maybe some depression. 04/08/2024 is the last time he took azithromycin. Symptoms seem to improve. He is asking you to switch antibiotics. He is very concerned about becoming depressed. Can he take doxycycline? Would this be an option? He does have about 6 tablets of this at home. Please advise Kevin Hooker III, MD 04/10/2024 1:14 PM Signed I'm a little worried about switching back to doxycycline as we had transitioned him off of that before due to intolerance. Tell him to stay off of antibiotics over the weekend and let's do virtual visit on Saturday for next steps. Let's plan for 830 if that is ok with him. ShakirPablitoa 04/10/2024 1:22 PM Signed Pt informed and agreed Louisa Shakir Allergies As of Date: 04/10/2024 (No Known Allergies) Date Reviewed: 03/23/2024 Reviewed by: Ann Choi, RN - Fully Assessed Reason for Visit: Medication Problem [65] Prescriptions as of 04/10/2024 - ondansetron orally disintegrating (ZOFRAN ODT) 4 mg disintegrating tablet Take 1 tablet by mouth every 8 hours as needed for nausea/vomiting for up to 30 doses. - apixaban (ELIQUIS) 5 mg tab(s) Take 5 mg by mouth two times a day. - azithromycin (ZITHROMAX) 500 mg tablet Take 1 tablet by mouth once daily. - acetaminophen (TYLENOL) 325 mg tablet Take 3 tablets by mouth four times daily. - ondansetron (ZOFRAN) 4 mg tablet Take 1 tablet by mouth every 8 hours as needed for nausea/vomiting. 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] 01/31/2024 Pseudomonas aeruginosa infection [A49.8] 01/31/2024 Enterococcus faecalis infection [A49.8] 01/31/2024 Anaerobic bacterial infection [A49.8] 01/31/2024 Thrombus [I82.90] 01/31/2024 Chest wall pain [R07.89] 02/01/2024 02/06/2024 ROXANNA (acute kidney injury) (HCC) [N17.9] 02/01/2024 02/06/2024 Pleurisy [R09.1] 02/01/2024 02/06/2024 Alteration in skin integrity related to surgica*02/03/2024 Leukocytosis [D72.829] 02/03/2024 02/06/2024 Postprocedural intraabdominal abscess [T81.43XA]02/04/2024 Open wnd anterior abdomen [S31.109A] 02/19/2024 Intra-abdominal abscess (HCC) [K65.1] 03/21/2024 Wound dehiscence [T81.30XA] 03/22/2024 Diarrhea due to drug [K52.1] 03/22/2024 Chronic anticoagulation [Z79.01] 03/22/2024 Encounter Status:Closed by LOUISA SCHILLING on 04/10/24 [facility] TER[facility]E ALL[facility] ([id number]) 1980 M Date Time Provider Department 03/26/24 [facility] During your visit today, we recorded the following information about you: Bernadette Reed RN 03/26/2024 9:05 AM Signed ADDI Yates with [facility], called to report a potential severe drug interaction between azithromycin and ondansetron. Patient was advised by pharmacist to take at least an hour apart. Please advise if patient can keep taking both. ADDI Diaz Ken Koon, MD 03/26/2024 2:55 PM Signed Yes, please continue to take both. Thanks MD Erika Harper Ann Marie, RN 03/26/2024 3:11 PM Signed I attempted to call Trudy, but could only hear static. Detailed voicemail left for patient. Bernadette Reed, ADDI Allergies As of Date: 03/26/2024 (No Known Allergies) Date Reviewed: 03/23/2024 Reviewed by: Ann Choi, ADDI - Fully Assessed Reason for Visit: Medication Problem [65] Prescriptions as of 03/26/2024 - ondansetron orally disintegrating (ZOFRAN ODT) 4 mg disintegrating tablet Take 1 tablet by mouth every 8 hours as needed for nausea/vomiting for up to 30 doses. - apixaban (ELIQUIS) 5 mg tab(s) Take 5 mg by mouth two times a day. - azithromycin (ZITHROMAX) 500 mg tablet Take 1 tablet by mouth once daily. - acetaminophen (TYLENOL) 325 mg tablet Take 3 tablets by mouth four times daily. - ondansetron (ZOFRAN) 4 mg tablet Take 1 tablet by mouth every 8 hours as needed for nausea/vomiting. 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] 01/31/2024 Pseudomonas aeruginosa infection [A49.8] 01/31/2024 Enterococcus faecalis infection [A49.8] 01/31/2024 Anaerobic bacterial infection [A49.8] 01/31/2024 Thrombus [I82.90] 01/31/2024 Chest wall pain [R07.89] 02/01/2024 02/06/2024 ROXANNA (acute kidney injury) (HCC) [N17.9] 02/01/2024 02/06/2024 Pleurisy [R09.1] 02/01/2024 02/06/2024 Alteration in skin integrity related to surgica*02/03/2024 Leukocytosis [D72.829] 02/03/2024 02/06/2024 Postprocedural intraabdominal abscess [T81.43XA]02/04/2024 Open wnd anterior abdomen [S31.109A] 02/19/2024 Intra-abdominal abscess (HCC) [K65.1] 03/21/2024 Wound dehiscence [T81.30XA] 03/22/2024 Diarrhea due to drug [K52.1] 03/22/2024 Chronic anticoagulation [Z79.01] 03/22/2024 Encounter Status:Closed by BERNADETTE REED on 03/26/24 Normal [facility] Basic metabolic 2000 panelon 03-23-2024 Anion gap [Moles/Vol] 12 mmol/L Normal 9-18 [facility] Comment on above: Order Comment: Speci men Type: BLOOD SPECIMENOrdering Facility: [facility] Address: [address] [place] [address] Performed By: #### 6 462-6 #### [facility] CLIA [id number] [address] [place] [address] [place] Calcium [Mass/Vol] 9.5 mg/dL Normal 8.5-10.2 [facility] Comment on above: Order Comment: Speci men Type: BLOOD SPECIMENOrdering Facility: [facility] Address: [address] [place] [address] Performed By: #### 6 462-6 #### [facility] CLIA [id number] [address] [place] [address] [place] Chloride [Moles/Vol] 105 mmol/L Normal 97-105 [facility] Comment on above: Order Comment: Speci men Type: BLOOD SPECIMENOrdering Facility: [facility] Address: [address] [place] [address] Performed By: #### 6 462-6 #### [facility] CLIA [id number] [address] STATES OF [facility] CO2 [Moles/Vol] 25 mmol/L Normal 22-30 [facility] Comment on above: Order Comment: Speci men Type: BLOOD SPECIMENOrdering Facility: [facility] Address: [address] [place] [address] Performed By: #### 6 462-6 #### [facility] CLIA [id number] [address] STATES OF [facility] Creatinine [Mass/Vol] 0.99 mg/dL Normal 0.73-1.22 [facility] Comment on above: Order Comment: Speci men Type: BLOOD SPECIMENOrdering Facility: [facility] Address: [address] [place] [address] Performed By: #### 6 462-6 #### [facility] CLIA [id number] [address] Creatinine and Glomerular filtration rate.predicted panel (S/P/Bld) 97 mL/min/1.73m??? Normal >=60 [facility] Comment on above: Order Comment: Speci men Type: BLOOD SPECIMENOrdering Facility: [facility] Address: [address] [place] [address] Result Comment: Tracy mated Glomerular Filtration Rate (eGFR) is calculated using the 2020 CKD-EPI creatinine equation. This equation utilizes serum creatinine, sex, and age as parameters. The creatinine assay has traceable calibration to isotope dilution-mass spectrometry. Refer to KDIGO guidelines for clinical interpretation. In patients with unstable renal function, e.g. those with acute kidney injury, the eGFR may not accurately reflect actual GFR. Performed By: #### 6 462-6 #### [facility] CLIA [id number] [address] OF [facility] Glucose [Mass/Vol] 93 mg/dL Normal 74-99 [facility] Comment on above: Order Comment: Speci men Type: BLOOD SPECIMENOrdering Facility: [facility] Address: [address] [place] [address] Result Comment: The [place] Diabetes Association (ADA) provides guidance for cutoff values for fasting glucose and random glucose. The ADA defines fasting as no caloric intake for at least 8 hours. Fasting plasma glucose results between 100 to 125 mg/dL indicate increased risk for diabetes (prediabetes). Fasting plasma glucose results greater than or equal to 126 mg/dL meet the criteria for diagnosis of diabetes. In the absence of unequivocal hyperglycemia, results should be confirmed by repeat testing. In a patient with classic symptoms of hyperglycemia or hyperglycemic crisis, random plasma glucose results greater than or equal to 200 mg/dL meet the criteria for diagnosis of diabetes. Reference: Standards of Medical Care in Diabetes 2016, [place] [employer]. Diabetes Care. 2016.39(Suppl 1). Performed By: #### 6 462-6 #### [facility] CLIA [id number] [address] Potassium [Moles/Vol] 4.0 mmol/L Normal 3.7-5.1 [facility] Comment on above: Order Comment: Speci men Type: BLOOD SPECIMENOrdering Facility: [facility] Address: [address] [place] [address] Performed By: #### 6 462-6 #### [facility] CLIA [id number] [address] Sodium [Moles/Vol] 142 mmol/L Normal 136-144 [facility] Comment on above: Order Comment: Walkeri men Type: BLOOD SPECIMENOrdering Facility: [facility] Address: [address] [place] [address] Performed By: #### 6 462-6 #### [facility] CLIA [id number] [address] STATES [facility] Urea nitrogen [Mass/Vol] 12 mg/dL Normal 9-24 [facility] Comment on above: Order Comment: Walkeri men Type: BLOOD SPECIMENOrdering Facility: [facility] Address: [address] [place] [address] Performed By: #### 6 462-6 #### [facility] CLIA [id number] [address] OF [place] CBC panel Auto (Bld)on 03-23 Erythrocyte distribution width (RBC) [Ratio] 12.7 % Normal 11.5-15.0 [facility] Comment on above: Order Comment: Speci men Type: BLOOD SPECIMENOrdering Facility: [facility] Address: [address] [place] [address] Performed By: #### 5 8410-2 ####[facility]ORYCLIA [id number] [address] OF [facility] Hematocrit (Bld) [Volume fraction] 40.8 % Normal 39.0-51.0 [facility] Comment on above: Order Comment: Speci men Type: BLOOD SPECIMENOrdering Facility: [facility] Address: [address] [place] [address] Performed By: #### 5 8410-2 ####[facility]ORYCLIA [id number] [address] [place] Hemoglobin (Bld) [Mass/Vol] 13.7 g/dL Normal 13.0-17.0 [facility] Comment on above: Order Comment: Speci men Type: BLOOD SPECIMENOrdering Facility: [facility] Address: [address] [place] [address] Performed By: #### 5 8410-2 ####[facility]ORYCLIA [id number] [address] [place] MCH (RBC) [Entitic mass] 28.2 pg Normal 26.0-34.0 [facility] Comment on above: Order Comment: Speci men Type: BLOOD SPECIMENOrdering Facility: [facility] Address: [address] [place] [address] Performed By: #### 5 8410-2 ####[facility]ORYCLIA [id number] [address] [place] MCHC (RBC) [Mass/Vol] 33.6 g/dL Normal 30.5-36.0 [facility] Comment on above: Order Comment: Speci men Type: BLOOD SPECIMENOrdering Facility: [facility] Address: [address] [place] [address] Performed By: #### 5 8410-2 ####[facility]ATORYCLIA [id number] [address] MCV (RBC) [Entitic vol] 84.1 fL Normal 80.0-100.0 [facility] Comment on above: Order Comment: Speci men Type: BLOOD SPECIMENOrdering Facility: [facility] Address: [address] [place] [address] Performed By: #### 5 8410-2 ####[facility]ORYCLIA [id number] [address] OF [place] Nucleated RBC (Bld) [#/Vol] 10*3/uL Normal <0.01 [facility] Comment on above: Order Comment: Speci men Type: BLOOD SPECIMENOrdering Facility: [facility] Address: [address] [place] [address] Performed By: #### 5 8410-2 ####[facility]ATORYCLIA [id number] [address] Platelet mean volume (Bld) [Entitic vol] 9.7 fL Normal 9.0-12.7 [facility] Comment on above: Order Comment: Speci men Type: BLOOD SPECIMENOrdering Facility: [facility] Address: [address] [place] [address] Performed By: #### 5 8410-2 ####[facility]ORYCLIA [id number] [address] [place] Platelets (Bld) [#/Vol] 230 10*3/uL Normal 150-400 [facility] Comment on above: Order Comment: Speci men Type: BLOOD SPECIMENOrdering Facility: [facility] Address: [address] [place] [address] Performed By: #### 5 8410-2 ####[facility]ORYCLIA [id number] [address] [place] RBC (Bld) [#/Vol] 4.85 10*6/uL Normal 4.20-6.00 [facility] Comment on above: Order Comment: Cait hill Type: BLOOD SPECIMENOrdering Facility: [facility] Address: [address] [place] [address] Performed By: #### 5 8410-2 ####[facility]ORYCLIA [id number] [place] [id number] [facility] WBC (Bld) [#/Vol] 7.29 10*3/uL Normal 3.70-11.00 [facility] Comment on above: Order Comment: Cait sergio Type: BLOOD SPECIMENOrdering Facility: [facility] Address: [address] [place] [address] Performed By: #### 5 8410-2 ####[facility]ORYCLIA [id number] [place] [id number] [facility] CNDSon 03-23-2024 CNDS HNO ID: [id number] Author: TAY BANKS MD Service: General Surgery Author Type: Nurse Practitioner Type: Discharge Summary Filed: 03/23/2024 15:03 Note Text: ----- Attestation signed by Tay Banks MD at 03/23/2024 3:03 PM Agree with AGGREGATE CONVEYOR OPERATOR note ----- DISCHARGE SUMMARY PATIENT NAME: Terrie Allen Code Status: Not on file Highest Readmission Risk Score: 12 The 30 day readmissions risk score is derived from an internally validated risk model which evaluates patient level characteristics, utilization history, medication orders and lab results up until the day of discharge. Patients with a score of 40 or above are considered highest risk for readmission. Specific patient level drivers will be listed at the bottom of the summary. Admission Information Admission Information ADMIT DATE: 03/21/2024 DISCHARGE DATE: 03/23/2024 MY DOCTORS AND MEDICAL TEAM: My Main Hospital Doctor: Tay Banks MD Primary Care Provider: No primary care provider on file. My Medical Team Members: Treatment Team: Attending Provider: Tay Banks MD Consulting: Eugenio Colon MD MY CONDITION AT DISCHARGE: Stable REASON I WAS IN THE HOSPITAL: Intra-abdominal abscess SUMMARY OF WHAT HAPPENED WHILE I WAS IN THE HOSPITAL: Mr. 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 Drain was removed 02/20/2024. IV antibiotics were completed 02/27/2024 and he was transitions to oral. Mr. Allen has been following with Dr. Corona (Infectious Disease) as an outpatient and has been being treated for actinomyces. 03/20/2024 he presented to [facility] with worsening abdominal pain, nausea, and fever. CT abdomen showed postsurgical phlegmonous process and possibly evolving abscess at the operative site. Mr. Allen was transferred to [facility] for further management. 03/21/2024 he was seen by infectious disease and transitioned to oral azithromycin. Mr. Allen has tolerated oral azithromycin without fever or chills. He pain has improved and he is tolerating a diet. He isbeing discharged home in stable condition. He should plan to have a follow-up CT abdomen in two weeks to assess phlegmonous process and see his original surgeon. OTHER PROBLEMS/DIAGNOSIS: Principal Problem: Intra-abdominal abscess (HCC) Active Problems: Wound dehiscence Diarrhea due to drug Chronic anticoagulation Resolved Problems: * No resolved hospital problems. * OPERATIONS PERFORMED WHILE IN THE HOSPITAL: None IMPORTANT TEST/PROCEDURES: No procedures performed TEST RESULTS NOT AVAILABLE AT THIS TIME: No pending results Discharge Disposition Discharge Disposition: Home With Self Care Activity When You Leave the Hospital Resume pre-hospital activity Diet Instructions Resume your pre-hospital diet For Pain When You Leave the Hospital Use acetaminophen (Tylenol) as recommended on the bottle Wound/Surgical Site Care Apply ice packs as needed Keep your dressing clean and dry Wash your hands frequently, especially before touching your incision, after using restroom and before eating Call Your Doctor If There is an unusual odor from the wound area There is severe pain at the operative site You have a severe headache You have lightheadedness, fainting, or confusion You have pain and swelling in your legs, especially if it is only on one side and not the other You have persistent nausea/vomiting over 24 hours You have persistent or heavy bleeding You have redness, swelling, pus or drainage from the wound You have swollen glands or cold and clammy skin Your temperature is greater than 101F Follow Up Appointments Follow-Up Appointment Hospital follow-up When: In 2 weeks Kevin Corona III, MD [phone] [facility] [address] [facility] [address] PCP Requested Referral Additional Provider to Provider Information: No notes on file Treatment Team: Attending Provider: Tay Banks MD Consulting: Eugenio Colon MD Transitions of Care Critical Issues: SPECIALIST FOLLOW-UP: surgery, ID LABS AND PROCEDURES PENDING AT DISCHARGE: No pending results. FOLLOW-UP APPOINTMENTS ALREADY SCHEDULED WITH A [facility] PROVIDER: No future appointments. ALLERGIES No Known Allergies DISCHARGE MEDICATION: Medication List START taking these medications ondansetron orally disintegrating 4 mg disintegrating tablet Commonly known as: ZOFRAN ODT Take 1 tablet by mouth every 8 hours as needed for nausea/vomiting for up to 30 doses. CONTINUE taking these medications acetaminophen 325 mg tablet Commonly known as: (more content not included)... Normal [facility] Basic metabolic 2000 panelon 03-22-2024 Anion gap [Moles/Vol] 10 mmol/L Normal 9-18 [facility] Comment on above: Order Comment: Cait hill Type: BLOOD SPECIMENOrdering Facility: [facility] Address: [address] [place] [address] Performed By: #### 2 4321-2 ####[facility]ATORYCLIA [id number] [place] [address] [place] Calcium [Mass/Vol] 9.5 mg/dL Normal 8.5-10.2 [facility] Comment on above: Order Comment: Speci men Type: BLOOD SPECIMENOrdering Facility: [facility] Address: [address] [place] [address] Performed By: #### 2 4321-2 ####[facility]ATORYCLIA [id number] [address] [place] Chloride [Moles/Vol] 104 mmol/L Normal 97-105 [facility] Comment on above: Order Comment: Speci men Type: BLOOD SPECIMENOrdering Facility: [facility] Address: [address] [place] [address] Performed By: #### 2 4321-2 ####[facility]ORYCLIA [id number] [address] [place] CO2 [Moles/Vol] 27 mmol/L Normal 22-30 [facility] Comment on above: Order Comment: Speci men Type: BLOOD SPECIMENOrdering Facility: [facility] Address: [address] [place] [address] Performed By: #### 2 4321-2 ####[facility]ATORYCLIA [id number] [address] OF [facility] Creatinine [Mass/Vol] 1.10 mg/dL Normal 0.73-1.22 [facility] Comment on above: Order Comment: Speci men Type: BLOOD SPECIMENOrdering Facility: [facility] Address: [address] [place] [address] Performed By: #### 2 4321-2 ####[facility]ATORYCLIA [id number] [address] Creatinine and Glomerular filtration rate.predicted panel (S/P/Bld) 85 mL/min/1.73m??? Normal >=60 [facility] Comment on above: Order Comment: Speci men Type: BLOOD SPECIMENOrdering Facility: [facility] Address: [address] [place] [address] Result Comment: Tracy mated Glomerular Filtration Rate (eGFR) is calculated using the 2020 CKD-EPI creatinine equation. This equation utilizes serum creatinine, sex, and age as parameters. The creatinine assay has traceable calibration to isotope dilution-mass spectrometry. Refer to KDIGO guidelines for clinical interpretation. In patients with unstable renal function, e.g. those with acute kidney injury, the eGFR may not accurately reflect actual GFR. Performed By: #### 2 4321-2 ####[facility]ATORYCLIA [id number] [place] [address] [place] Glucose [Mass/Vol] 88 mg/dL Normal 74-99 [facility] Comment on above: Order Comment: Cait hill Type: BLOOD SPECIMENOrdering Facility: [facility] Address: [address] [place] [address] Result Comment: The [place] Diabetes [employer] (ADA) provides guidance for cutoff values for fasting glucose and random glucose. The ADA defines fasting as no caloric intake for at least 8 hours. Fasting plasma glucose results between 100 to 125 mg/dL indicate increased risk for diabetes (prediabetes). Fasting plasma glucose results greater than or equal to 126 mg/dL meet the criteria for diagnosis of diabetes. In the absence of unequivocal hyperglycemia, results should be confirmed by repeat testing. In a patient with classic symptoms of hyperglycemia or hyperglycemic crisis, random plasma glucose results greater than or equal to 200 mg/dL meet the criteria for diagnosis of diabetes. Reference: Standards of Medical Care in Diabetes 2016, [place] [employer]. Diabetes Care. 2016.39(Suppl 1). Performed By: #### 2 4321-2 ####[facility]ATORYCLIA [id number] [place] [address] [place] Potassium [Moles/Vol] 3.9 mmol/L Normal 3.7-5.1 [facility] Comment on above: Order Comment: Cait hill Type: BLOOD SPECIMENOrdering Facility: [facility] Address: [address] [place] [address] Performed By: #### 2 4321-2 ####[facility]ATORYCLIA [id number] [place] [id number] [place] Sodium [Moles/Vol] 141 mmol/L Normal 136-144 [facility] Comment on above: Order Comment: Cait hill Type: BLOOD SPECIMENOrdering Facility: [facility] Address: [address] [place] [address] Performed By: #### 2 4321-2 ####[facility]ORYCLIA [id number] [address] STATES [facility] Urea nitrogen [Mass/Vol] 11 mg/dL Normal 9-24 [facility] Comment on above: Order Comment: Speci men Type: BLOOD SPECIMENOrdering Facility: [facility] Address: [address] [place] [address] Performed By: #### 2 4321-2 ####[facility]ATORYCLIA [id number] [address] CBC panel Auto (Bld)on 03-22 Erythrocyte distribution width (RBC) [Ratio] 12.8 % Normal 11.5-15.0 [facility] Comment on above: Order Comment: Speci men Type: BLOOD SPECIMENOrdering Facility: [facility] Address: [address] [place] [address] Performed By: #### 5 8410-2 ####[facility]ATORYCLIA [id number] [address] Hematocrit (Bld) [Volume fraction] 42.8 % Normal 39.0-51.0 [facility] Comment on above: Order Comment: Speci men Type: BLOOD SPECIMENOrdering Facility: [facility] Address: [address] [place] [address] Performed By: #### 5 8410-2 ####[facility]ORYCLIA [id number] [address] Hemoglobin (Bld) [Mass/Vol] 14.4 g/dL Normal 13.0-17.0 [facility] Comment on above: Order Comment: Speci men Type: BLOOD SPECIMENOrdering Facility: [facility] Address: [address] [place] [address] Performed By: #### 5 8410-2 ####[facility]ATORYCLIA [id number] [address] MCH (RBC) [Entitic mass] 28.3 pg Normal 26.0-34.0 [facility] Comment on above: Order Comment: Speci men Type: BLOOD SPECIMENOrdering Facility: [facility] Address: [address] [place] [address] Performed By: #### 5 8410-2 ####[facility]ATORYCLIA [id number] [address] MCHC (RBC) [Mass/Vol] 33.6 g/dL Normal 30.5-36.0 [facility] Comment on above: Order Comment: Speci men Type: BLOOD SPECIMENOrdering Facility: [facility] Address: [address] [place] [address] Performed By: #### 5 8410-2 ####[facility]ATORYCLIA [id number] [address] MCV (RBC) [Entitic vol] 84.3 fL Normal 80.0-100.0 [facility] Comment on above: Order Comment: Speci men Type: BLOOD SPECIMENOrdering Facility: [facility] Address: [address] [place] [address] Performed By: #### 5 8410-2 ####[facility]ATORYCLIA [id number] [address] Nucleated RBC (Bld) [#/Vol] 10*3/uL Normal <0.01 [facility] Comment on above: Order Comment: Speci men Type: BLOOD SPECIMENOrdering Facility: [facility] Address: [address] [place] [address] Performed By: #### 5 8410-2 ####[facility]ATORYCLIA [id number] [address] Platelet mean volume (Bld) [Entitic vol] 9.7 fL Normal 9.0-12.7 [facility] Comment on above: Order Comment: Speci men Type: BLOOD SPECIMENOrdering Facility: [facility] Address: [address] [place] [address] Performed By: #### 5 8410-2 ####[facility]ATORYCLIA [id number] [address] Platelets (Bld) [#/Vol] 201 10*3/uL Normal 150-400 [facility] Comment on above: Order Comment: Speci men Type: BLOOD SPECIMENOrdering Facility: [facility] Address: [address] [place] [address] Performed By: #### 5 8410-2 ####[facility]ATORYCLIA [id number] [address] [place] RBC (Bld) [#/Vol] 5.08 10*6/uL Normal 4.20-6.00 [facility] Comment on above: Order Comment: Speci men Type: BLOOD SPECIMENOrdering Facility: [facility] Address: [address] [place] [address] Performed By: #### 5 8410-2 ####[facility]ATORYCLIA [id number] [address] OF [facility] WBC (Bld) [#/Vol] 6.36 10*3/uL Normal 3.70-11.00 [facility] Comment on above: Order Comment: Speci men Type: BLOOD SPECIMENOrdering Facility: [facility] Address: [address] [place] [address] Performed By: #### 5 8410-2 ####[facility]ATORYCLIA [id number] [address] OF [facility] CONSULT PROGon 03-22-2024 CONSULT PROG HNO ID: [id number] Author: EUGENIO COLON MD Service: Infectious Disease Author Type: Physician Type: Consult Progress Note Filed: 03/22/2024 18:01 Note Text: PROGRESS NOTE INFECTIOUS DISEASE BRIEF SUMMARY: 43 year old male intra-abdominal infection s/p drain removal and off of the polymicrobial portion of treatment and 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 RECOMMENDATIONS: - cont azithromycin - monitor for fever/chills tonight, if none, ok to dc Saturday AM from ID standpoint All questions answered Subjective SUBJECTIVE: Interval Events: 03/22 no major event overnight. Transitioned to azithromycin yesterday, zosyn stop. Doing ok Active Antimicrobials (From admission, onward) Start Stop 03/21/24 1700 azithromycin 500 mg tab(s) (ZITHROMAX) 500 mg, ORAL, DAILY -- Immunosuppressant: None Objective Medications: Current Facility-Administered Medications Medication Dose Route Frequency NaCl 0.9% iv flush bag 20 mL INTRAVENOUS PRN ondansetron 4 mg tab(s) (ZOFRAN) 4 mg ORAL q 6 H PRN Or ondansetron (PF) 4 mg injection (ZOFRAN) 4 mg INTRAVENOUS q 6 H PRN azithromycin 500 mg tab(s) (ZITHROMAX) 500 mg ORAL DAILY acetaminophen 975 mg tab(s) (TYLENOL) 975 mg ORAL q 6 H PRN apixaban 5 mg tab(s) (ELIQUIS) 5 mg ORAL BID OBJECTIVE: Physical Exam: BP 107/72 Pulse 77 Temp (Src) 97.3 (Oral) Resp 18 Ht 6' 3" (1.91m) Wt 195 lb 4.8 oz (88.6kg) SpO2 96% BMI 24.41 kg/(m2). O2 Therapy: Room Air Lines, Drains, and Airways Line Duration Peripheral 03/20/24 External Facility Left Hand 22 Gauge 2 days GENERAL APPEARANCE: Comfortable No spinal tenderness upon palpation of spinous processes of lumbar NEURO: Awake, alert, no involuntary motions Lab data: WBC Date Value 03/22/2024 6.36 k/uL 03/21/2024 9.06 k/uL 02/24/2024 6 K/uL 02/17/2024 10.31 k/uL 02/10/2024 6.3 K/uL 02/06/2024 7.05 k/uL 02/05/2024 6.04 k/uL Platelet Count (k/uL) Date Value 03/22/2024 201 03/21/2024 228 02/17/2024 357 02/06/2024 461 02/05/2024 461 PLT (K/uL) Date Value 02/24/2024 294 02/10/2024 487 Creatinine Date Value 03/22/2024 1.10 mg/dL 03/21/2024 1.05 mg/dL 02/24/2024 1.17 MG/DL 02/17/2024 1.14 mg/dL 02/10/2024 1.41 MG/DL 02/06/2024 1.28 mg/dL 02/05/2024 1.32 mg/dL AST (SGOT) (U/L) Date Value 02/24/2024 101 ALT (SGPT) (U/L) Date Value 02/24/2024 226 DATA: Diagnostic Tests Reviewed for Today's Visit: Most recent labs Most recent imaging Microbiology data: Positive Micro-30 Days No results found for the last 720 hours. Please Note: This note has been created using Xlumena, a speech recognition software program, and may contain errors including punctuation, grammar, spelling, gender, and inappropriate words or phrases that pertain to the system. Eugenio Colon MD Infectious Disease Respiratory [place] Normal [facility] Bacteria Bld Culton 03-21-20 24 Bacteria identified Cx Nom (Bld) CULTURE, BLOOD: No growth 5 days Normal [facility] Comment on above: Performed By: #### 6 00-7 #### [facility] CLIA [id number] [address] [place] [address] [place] Bacteria identified Cx Nom (Bld) CULTURE, BLOOD: No growth 5 days Normal [facility] Comment on above: Performed By: #### 6 00-7 #### [facility] CLIA [id number] [address] [place] [address] [place] Basic metabolic 2000 panelon 03-21-2024 Anion gap [Moles/Vol] 11 mmol/L Normal 9-18 [facility] Comment on above: Order Comment: Speci men Type: BLOOD SPECIMENOrdering Facility: [facility] Address: [address] [place] [address] Performed By: #### 6 462-6 #### [facility] CLIA [id number] [address] [place] [address] [place] Calcium [Mass/Vol] 9.6 mg/dL Normal 8.5-10.2 [facility] Comment on above: Order Comment: Speci men Type: BLOOD SPECIMENOrdering Facility: [facility] Address: [address] [place] [address] Performed By: #### 6 462-6 #### [facility] CLIA [id number] [address] [place] [address] [place] Chloride [Moles/Vol] 100 mmol/L Normal 97-105 [facility] Comment on above: Order Comment: Speci men Type: BLOOD SPECIMENOrdering Facility: [facility] Address: [address] [place] [address] Performed By: #### 6 462-6 #### [facility] CLIA [id number] [address] [place] [address] [place] CO2 [Moles/Vol] 27 mmol/L Normal 22-30 [facility] Comment on above: Order Comment: Speci men Type: BLOOD SPECIMENOrdering Facility: [facility] Address: [address] [place] [address] Performed By: #### 6 462-6 #### [facility] CLIA [id number] [address] [place] [address] [place] Creatinine [Mass/Vol] 1.05 mg/dL Normal 0.73-1.22 [facility] Comment on above: Order Comment: Speci men Type: BLOOD SPECIMENOrdering Facility: [facility] Address: [address] [place] [address] Performed By: #### 6 462-6 #### [facility] CLIA [id number] [address] [place] [address] [place] Creatinine and Glomerular filtration rate.predicted panel (S/P/Bld) 90 mL/min/1.73m??? Normal >=60 [facility] Comment on above: Order Comment: C[place] Type: BLOOD SPECIMENOrdering Facility: [facility] Address: [address] [place] [address] Result Comment: Tracy mated Glomerular Filtration Rate (eGFR) is calculated using the 2020 CKD-EPI creatinine equation. This equation utilizes serum creatinine, sex, and age as parameters. The creatinine assay has traceable calibration to isotope dilution-mass spectrometry. Refer to KDIGO guidelines for clinical interpretation. In patients with unstable renal function, e.g. those with acute kidney injury, the eGFR may not accurately reflect actual GFR. Performed By: #### 6 462-6 #### [facility] CLIA [id number] [address] [place] [address] [place] Glucose [Mass/Vol] 126 mg/dL High 74-99 [facility] Comment on above: Order Comment: [place] Type: BLOOD SPECIMENOrdering Facility: [facility] Address: [address] [place] [address] Result Comment: The [place] Diabetes Association (ADA) provides guidance for cutoff values for fasting glucose and random glucose. The ADA defines fasting as no caloric intake for at least 8 hours. Fasting plasma glucose results between 100 to 125 mg/dL indicate increased risk for diabetes (prediabetes). Fasting plasma glucose results greater than or equal to 126 mg/dL meet the criteria for diagnosis of diabetes. In the absence of unequivocal hyperglycemia, results should be confirmed by repeat testing. In a patient with classic symptoms of hyperglycemia or hyperglycemic crisis, random plasma glucose results greater than or equal to 200 mg/dL meet the criteria for diagnosis of diabetes. Reference: Standards of Medical Care in Diabetes 2016, [place] [employer]. Diabetes Care. 2016.39(Suppl 1). Performed By: #### 6 462-6 #### [facility] CLIA [id number] [address] [place] [address] [place] Potassium [Moles/Vol] 3.5 mmol/L Low 3.7-5.1 [facility] Comment on above: Order Comment: [place] Type: BLOOD SPECIMENOrdering Facility: [facility] Address: [address] [place] [address] Performed By: #### 6 462-6 #### [facility] CLIA [id number] [address] STATES [facility] Sodium [Moles/Vol] 138 mmol/L Normal 136-144 [facility] Comment on above: Order Comment: Speci men Type: BLOOD SPECIMENOrdering Facility: [facility] Address: [address] [place] [address] Performed By: #### 6 462-6 #### [facility] CLIA [id number] [address] [place] Urea nitrogen [Mass/Vol] 11 mg/dL Normal 9-24 [facility] Comment on above: Order Comment: Speci men Type: BLOOD SPECIMENOrdering Facility: [facility] Address: [address] [place] [address] Performed By: #### 6 462-6 #### [facility] CLIA [id number] [address] [place] [address] [place] C diff Tox gens Stl Ql SAVITA+p robeon 03-21-2024 C. difficile toxin genes SAVITA+probe Ql (Stl) Negative Normal Negative for C. difficile toxin by PCR [facility] Comment on above: Order Comment: Speci men Type: STOOL SPECIMENOrdering Facility: [facility] Address: [address] [place] [address] Performed By: #### 6 00-7 #### [facility] CLIA [id number] [address] [place] [address] OF [place] CBC panel Auto (Bld)on 03-21 Erythrocyte distribution width (RBC) [Ratio] 13.0 % Normal 11.5-15.0 [facility] Comment on above: Order Comment: Speci men Type: BLOOD SPECIMENOrdering Facility: [facility] Address: [address] [place] [address] Performed By: #### 5 8410-2 ####[facility] [id number] [address] Hematocrit (Bld) [Volume fraction] 44.8 % Normal 39.0-51.0 [facility] Comment on above: Order Comment: Speci men Type: BLOOD SPECIMENOrdering Facility: [facility] Address: [address] [place] [address] Performed By: #### 5 8410-2 ####[facility] [id number] [address] STATES OF [facility] Hemoglobin (Bld) [Mass/Vol] 14.6 g/dL Normal 13.0-17.0 [facility] Comment on above: Order Comment: Speci men Type: BLOOD SPECIMENOrdering Facility: [facility] Address: [address] [place] [address] Performed By: #### 5 8410-2 ####[facility] [id number] [address] STATES OF [facility] MCH (RBC) [Entitic mass] 27.7 pg Normal 26.0-34.0 [facility] Comment on above: Order Comment: Speci men Type: BLOOD SPECIMENOrdering Facility: [facility] Address: [address] [place] [address] Performed By: #### 5 8410-2 ####[facility] [id number] [address] [place] MCHC (RBC) [Mass/Vol] 32.6 g/dL Normal 30.5-36.0 [facility] Comment on above: Order Comment: Speci men Type: BLOOD SPECIMENOrdering Facility: [facility] Address: [address] [place] [address] Performed By: #### 5 8410-2 ####[facility] [id number] [address] MCV (RBC) [Entitic vol] 84.8 fL Normal 80.0-100.0 [facility] Comment on above: Order Comment: Speci men Type: BLOOD SPECIMENOrdering Facility: [facility] Address: [address] [place] [address] Performed By: #### 5 8410-2 ####[facility]IA [id number] [place] [address] [place] Nucleated RBC (Bld) [#/Vol] 10*3/uL Normal <0.01 [facility] Comment on above: Order Comment: Speci men Type: BLOOD SPECIMENOrdering Facility: [facility] Address: [address] [place] [address] Performed By: #### 5 8410-2 ####[facility] [id number] [place] [address] [place] Platelet mean volume (Bld) [Entitic vol] 9.7 fL Normal 9.0-12.7 [facility] Comment on above: Order Comment: Speci men Type: BLOOD SPECIMENOrdering Facility: [facility] Address: [address] [place] [address] Performed By: #### 5 8410-2 ####[facility] [id number] [address] OF [place] Platelets (Bld) [#/Vol] 228 10*3/uL Normal 150-400 [facility] Comment on above: Order Comment: Speci men Type: BLOOD SPECIMENOrdering Facility: [facility] Address: [address] [place] [address] Performed By: #### 5 8410-2 ####[facility] [id number] [place] [address] [place] RBC (Bld) [#/Vol] 5.28 10*6/uL Normal 4.20-6.00 [facility] Comment on above: Order Comment: Speci men Type: BLOOD SPECIMENOrdering Facility: [facility] Address: [address] [place] [address] Performed By: #### 5 8410-2 ####[facility] [id number] [place] [address] [place] WBC (Bld) [#/Vol] 9.06 10*3/uL Normal 3.70-11.00 [facility] Comment on above: Order Comment: Speci men Type: BLOOD SPECIMENOrdering Facility: [facility] Address: [address] [place] [address] Performed By: #### 5 8410-2 ####[facility]IA [id number] [place] [id number] [place] CONSULTon 03-21-2024 CONSULT HNO ID: [id number] Author: EUGENIO COLON MD Service: Infectious Disease Author Type: Physician Type: Consults Filed: 03/21/2024 16:44 Note Text: INITIAL CONSULT INFECTIOUS DISEASE SERVICE DATE: 03/21/2024 SERVICE TIME: 11:18 AM We were asked to evaluate Mr. Terrie Allen, a 43 year old yo male by for Intraabdominal abscess - follow outpatient. Our findings and recommendations will be communicated through the shared medical record. 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 Given resolved, would want to de-escalate abx to azithro that covers actinomyces and see if fever recurs tomorrow. If no fever Saturday and morning AM, ok to dc. If fever recurs, patient needs to stay and change abx to zosyn Estimated Creatinine Clearance: 108.4 mL/min (based on SCr of 1.05 mg/dL). 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 Ct abd/pel showed small thick walled fluid density at operative site distant with phlegmonous process and evolving abscess measuring 2.9 x 1.3cm Active Antimicrobials (From admission, onward) Start Stop 03/21/24 0700 piperacillin-tazobactam iv piggyback 3.375 g in dextrose (iso-osmotic) 50 mL (ZOSYN) 3.375 g, INTRAVENOUS, EVERY 6 HOURS -- Immunosuppressants: None Current other medications reviewed. Current Facility-Administered Medications Medication Dose Route Frequency NaCl 0.9% iv flush bag 20 mL INTRAVENOUS PRN lactated ringers iv infusion 100 mL/hr INTRAVENOUS CONTINUOUS ondansetron 4 mg tab(s) (ZOFRAN) 4 mg ORAL q 6 H PRN Or ondansetron (PF) 4 mg injection (ZOFRAN) 4 mg INTRAVENOUS q 6 H PRN morphine 2 mg injection 2 mg INTRAVENOUS q 4 H PRN oxyCODONE IR 5-10 mg tab(s) (ROXICODONE) 5-10 mg ORAL q 6 H PRN acetaminophen 975 mg tab(s) (TYLENOL) 975 mg ORAL q 6 H piperacillin-tazobactam iv piggyback 3.375 g in dextrose (iso-osmotic) 50 mL (ZOSYN) 3.375 g INTRAVENOUS q 6 H PAST MEDICAL HISTORY Diagnosis Date Diarrhea 12/18/05 Irritable bowel syndrome Irritable bowel PAST SURGICAL HISTORY Procedure Laterality Date PAST SURGICAL HISTORY OF left clavicle repair with plate,2004 PICC LINE INSERTION (PICC TEAM) ([place]) 02/03/2024 SIGMOIDOSCOPY FLX DX W/COLLJ SPEC BR/WA IF PFRMD 12/18/05 Social History Tobacco Use Smoking status: Never Substance Use Topics Alcohol use: No FAMILY HISTORY Problem Relation Age of Onset Diabetes Father Diabetes Maternal Grandfather Cancer Paternal Grandmother Stroke Paternal Grandfather ALLERGIES No Known Allergies Objective OBJECTIVE: PHYSICAL EXAM: BP 116/68 Pulse 77 Temp (Src) 97.5 (Oral) Resp 16 Ht 6' 3" (1.91m) Wt 195 lb 4.8 oz (88.6kg) SpO2 98% BMI 24.41 kg/(m2). O2 Therapy: Room Air Lines, Drains, and Airways Line Duration Peripheral 03/20/24 External Facility Left Hand 22 Gauge 1 day GENERAL APPEARANCE: Comfortable ABDOMEN: Soft, non tender, BS+ EXTREMITIES: No edema or tenderness NEURO: Awake, alert, no involuntary motions LABS: WBC Date Value 03/21/2024 9.06 k/uL 02/24/2024 6 K/uL 02/17/2024 10.31 k/uL 02/10/2024 6.3 K/uL 02/06/2024 7.05 k/uL 02/05/2024 6.04 k/uL 02/04/2024 7.21 k/uL Creatinine Date Value 03/21/2024 1.05 mg/dL 02/24/2024 1.17 MG/DL 02/17/2024 1.14 mg/dL 02/10/2024 1.41 MG/DL 02/06/2024 1.28 mg/dL 02/05/2024 1.32 mg/dL 02/04/2024 1.27 mg/dL Lab Results Component Value Date NEUTP 72.7 02/17/2024 ABSNEUT 7.50 02/17/2024 LYMPHP 10.9 02/17/2024 ABSLYMPH 1.12 02/17/2024 ABSMONO 0.93 02/17/2024 EODINP 5.7 02/17/2024 ABSEOSIN 0.59 02/17/2024 BASOP 1.2 02/17/2024 ABSBASO 0.12 02/17/2024 Lab Results Component Value Date PLT 228 03/21/2024 PLT 294 02/24/2024 HB 14.6 03/21/2024 HCT 44.8 03/21/2024 HCT 40.6 02/24/2024 ALB 3.6 02/24/2024 CA 9.6 03/21/2024 CA 9.6 02/24/2024 TBILI 0.9 02/17/2024 ALKPHOS 146 02/24/2024 AST 101 02/24/2024 GLUC 126 03/21/2024 GLUC 110 02/24/2024 BUN 11 03/21/2024 BUN 12 02/24/2024 NA 138 03/21/2024 NA 140 02/24/2024 K 3.5 03/21/2024 K 3.9 02/24/2024 C (more content not included)... Normal [facility] HISTORY PHYSICALon HISTORY PHYSICAL HNO ID: [id number] Author: TAY BANKS MD Service: General Surgery Author Type: Resident Type: H&P Filed: 03/21/2024 14:22 Note Text: ----- Attestation signed by Tay Banks MD at 03/21/2024 2:22 PM Discussed with resident. Agree with plan as listed above ----- HISTORY AND PHYSICAL EXAM: EGS SERVICE SERVICE DATE: 03/21/2024 SERVICE TIME: 12:57 AM Subjective CHIEF COMPLAINT: Intraabdominal abscess HPI: 43 year old male with a past medical history significant for IBS, intussusception secondary to inflammatory mass sp R hemicolectomy c/b abscess requiring ex lap w/ washout c/b repeat abscess requiring drain and PICC for IV abx upon dc presents to [facility] as a direct admission from [facility] for concerns of repeat intraabdominal abscess. On 02/19, patients LUZ drain was pulled.IV antibiotics were then stopped on 02/26 and he was transitioned to oral antibiotics. Approximately 2 weeks ago, he developed persistent non bloody diarrhea. Denies worsening abdominal pain. Reports adequate PO intake. Today, he developed nausea, no vomiting. He recorded a tmax of 101.3 and then decided to seek medical attention at [facility]. On initial workup at [place], CT AP was obtained which showed findings consistent with postsurgical phlegmonous process and possibly evolving abscess at the operative site, along withthickening of the ileal anastomotic loop molina. At that point, patient was directly admitted to [facility] for further management. FUNCTIONAL STATUS: Independent PAST MEDICAL HISTORY Diagnosis Date Diarrhea 12/18/05 Irritable bowel syndrome Irritable bowel PAST SURGICAL HISTORY Procedure Laterality Date PAST SURGICAL HISTORY OF left clavicle repair with plate,2004 PICC LINE INSERTION (PICC TEAM) ([place]) 02/03/2024 SIGMOIDOSCOPY FLX DX W/COLLJ SPEC BR/WA IF PFRMD 12/18/05 FAMILY HISTORY Problem Relation Age of Onset Diabetes Father Diabetes Maternal Grandfather Cancer Paternal Grandmother Stroke Paternal Grandfather Social History Tobacco Use Smoking status: Never Substance Use Topics Alcohol use: No penicillin V potassium 500 mg tablet, Take 1 tablet by mouth four times daily for 28 days., Disp: 56 tablet, Rfl: 1, 03/20/2024 at 1230 acetaminophen (TYLENOL) 325 mg tablet, Take 3 tablets by mouth four times daily., Disp: , Rfl: , 03/20/2024 at 1500 ondansetron (ZOFRAN) 4 mg tablet, Take 1 tablet by mouth every 8 hours as needed for nausea/vomiting., Disp: 6 tablet, Rfl: 0 azithromycin (ZITHROMAX) 500 mg tablet, Take 1 tablet by mouth once daily., Disp: 14 tablet, Rfl: 1 ALLERGIES No Known Allergies COMPLETE REVIEW OF SYSTEMS: Pertinent positive and negatives in HPI. ROS otherwise negative Objective BP 117/81 Pulse 72 Temp (Src) 98.1 (Oral) Resp 18 Ht 6' 3" (1.91m) Wt 195 lb 4.8 oz (88.6kg) SpO2 98% BMI 24.41 kg/(m2). O2 Therapy: Room Air PHYSICAL EXAM: GENERAL: Alert. No distress. Resting comfortably. NEURO: AANDOx3. No focal neurologic deficits. Sensation grossly intact. HEENT: Normocephalic. Atraumatic. EOMI. LUNGS: Unlabored breathing. Equal excursion bilaterally. CARDIAC: Regular rate. Good perfusion throughout. ABDOMEN: Soft, mild distension, no guarding or TPP, healing midline laparotomy site with small opening at the inferior aspect packed with iodoform dressing EXTREMITIES: ESCALANTE. No deformities. SKIN: No obvious jaundice or pallor. DATA: Labs: No results for input(s): "NA", "K", "CHLOR", "CO2", "BUN", "CREAT", "GLUC", "ANION", "CA", "MG", "P", "ALB", "AST", "ALT", "ALKPHOS", "TBILI", "DBILI", "PHOSINTL", "WBC", "HB", "HCT", "PLT", "LACT", "INR", "PH", "PCO2", "PO2", "BE", "HCO3" in the last 72 hours. Invalid input(s): [facility] No orders to display Diagnostic tests reviewed for today's visit: Most recent labs and imaging results. No orders to display Assessment/Plan Active Hospital Problems Diagnosis Date Noted Intra-abdominal abscess (HCC) 03/21/2024 43 year old male with a past medical history significant for IBS, intussusception secondary to inflammatory mass sp R hemicolectomy c/b abscess requiring ex lap w/ washout c/b repeat abscess requiring drain and PICC for IV abx upon dc presents to [facility] as a direct admission from [facility] for concerns of repeat intraabdominal abscess. Hospital Course/Operations/Procedu res: * No surgery found * Plan: R Hemicolectomy C/B Repetitive Intraabdominal abscesses -CT showing phlegmonous changes concerning for developing intraabdominal abscess. Appears to be where LUZ drain was removed. There does not appear to be any fluid collection that is walled of enough to place another drain however -Will consult ID and start Zoysn until further recs -C diff and blood cx ordered -wound care consult for midline (more content not included)... Normal [facility] Lactate (Bld) [Moles/Vol]on 03-21-2024 Lactate [Moles/Vol] 1.1 mmol/L Normal 0.5-2.2 [facility] Comment on above: Order Comment: Speci men Type: BLOOD SPECIMENOrdering Facility: [facility] Address: [address] [place] [address] Performed By: #### 6 462-6 #### [facility] CLIA [id number] [address] [place] [id number] [place] 03-20-2024 MATT Telephone (Gift Card Combo) ----- TIFFANYTERRIE Jett ([id number]) 1980 M Date Time Provider Department 03/20/24 KEVIN CORONA III During your visit today, we recorded the following information about you: Bernadette Reed RN 03/20/2024 1:13 PM Signed Patient called to report that he started the penicillin the evening of 03-18-24. Since that time, the loose stools have increased in frequency, and patient has been feeling unwell. Between 0600 and 1230 today, patient reported six loose stools. Please advise. ADDI Diaz Donald M III, MD 03/20/2024 2:27 PM Signed That's unfortunate. Let's do 2 things. 1) have him change the penicillin to azithromycin 2) let's check C. Diff and make sure not missing a C. Diff infection Bernadette Reed RN 03/20/2024 3:03 PM Signed Spoke with patient who verbalized understanding. Patient stated that he has started to feel warm with intermittent chills, as if he might be getting a fever, current temperature is 99.3 F. Patient instructed to go to the ED if he gets a fever or begins to feel worse over the weekend. Bernadette Reed RN Allergies As of Date: 03/20/2024 (No Known Allergies) Date Reviewed: 02/20/2024 Reviewed by: Lorraine Fernandes RN - Fully Assessed Reason for Visit: Symptoms [3640] Primary Visit Diagnosis:Diarrhea of presumed infectious origin [R19.7] Order(s):C. DIFFICILE PCR [SQCDPCR] Order #: [id number]. #:[id number] azithromycin (ZITHROMAX) 500 mg tabletTake 1 tablet by mouth once daily.Disp: 14 tabletRfl: 1 Prescriptions as of 03/24/2024 - ondansetron orally disintegrating (ZOFRAN ODT) 4 mg disintegrating tablet Take 1 tablet by mouth every 8 hours as needed for nausea/vomiting for up to 30 doses. - apixaban (ELIQUIS) 5 mg tab(s) Take 5 mg by mouth two times a day. - azithromycin (ZITHROMAX) 500 mg tablet Take 1 tablet by mouth once daily. - acetaminophen (TYLENOL) 325 mg tablet Take 3 tablets by mouth four times daily. - ondansetron (ZOFRAN) 4 mg tablet Take 1 tablet by mouth every 8 hours as needed for nausea/vomiting. 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] 01/31/2024 Pseudomonas aeruginosa infection [A49.8] 01/31/2024 Enterococcus faecalis infection [A49.8] 01/31/2024 Anaerobic bacterial infection [A49.8] 01/31/2024 Thrombus [I82.90] 01/31/2024 Chest wall pain [R07.89] 02/01/2024 02/06/2024 ROXANNA (acute kidney injury) (HCC) [N17.9] 02/01/2024 02/06/2024 Pleurisy [R09.1] 02/01/2024 02/06/2024 Alteration in skin integrity related to surgica*02/03/2024 Leukocytosis [D72.829] 02/03/2024 02/06/2024 Postprocedural intraabdominal abscess [T81.43XA]02/04/2024 Open wnd anterior abdomen [S31.109A] 02/19/2024 Prescriptions ordered this encounter Disp Refills Start End AZITHROMYCIN 500 MG TABLET 14 t* 1 03/20/2024 Route: ORAL Sig: Take 1 tablet by mouth once daily. Encounter Status:Closed by BERNADETTE REED on 03/24/24 [facility] 03-13-2024 [facility] Telephone (INFDAK) ----- ALLENTERRIE ([id number]) 1980 M Date Time Provider Department 03/13/24 KEVIN CORONA III During your visit today, we recorded the following information about you: Bernadette Reed RN 03/13/2024 10:00 AM Signed Patient has been taking doxycycline for seven days, and reported having four episodes of loose semi-formed stools per day for five days. This morning, the stool was more formed, and patient stated that he is not having as much cramping and stomach discomfort. Patient instructed on sANDs of C diff, and also instructed on taking a daily probiotic and the BRAT diet. Patient stated that he will try these and will call the office if symptoms worsen. Patient also requested that his appointment next week be switched to an [facility] virtual visit. Please let me know if this is an issue. Thank you, ADDI Diaz Donald M III, MD 03/13/2024 10:27 AM Signed I'm glad symptoms are improving. Yes, an [facility] visit will be ok next week. Thanks. Allergies As of Date: 03/13/2024 (No Known Allergies) Date Reviewed: 02/20/2024 Reviewed by: Lorraine Fernandes RN - Fully Assessed Reason for Visit: Symptoms [4140] Prescriptions as of 03/13/2024 - doxycycline monohydrate 100 mg tablet Take 1 tablet by mouth two times a day for 14 days. - acetaminophen (TYLENOL) 325 mg tablet Take 3 tablets by mouth four times daily. - ondansetron (ZOFRAN) 4 mg tablet Take 1 tablet by mouth every 8 hours as needed for nausea/vomiting. 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] 01/31/2024 Pseudomonas aeruginosa infection [A49.8] 01/31/2024 Enterococcus faecalis infection [A49.8] 01/31/2024 Anaerobic bacterial infection [A49.8] 01/31/2024 Thrombus [I82.90] 01/31/2024 Chest wall pain [R07.89] 02/01/2024 02/06/2024 ROXANNA (acute kidney injury) (HCC) [N17.9] 02/01/2024 02/06/2024 Pleurisy [R09.1] 02/01/2024 02/06/2024 Alteration in skin integrity related to surgica*02/03/2024 Leukocytosis [D72.829] 02/03/2024 02/06/2024 Postprocedural intraabdominal abscess [T81.43XA]02/04/2024 Open wnd anterior abdomen [S31.109A] 02/19/2024 Encounter Status:Closed by BERNADETTE REED on 03/13/24 [facility] [place] 03-06-2024 MATT Telephone (INFDAK) ----- TERRIE ALLEN ([id number]) 1980 M Date Time Provider Department 03/06/24 KEVIN CORONA III During your visit today, we recorded the following information about you: Bernadette Reed RN 03/06/2024 10:30 AM Signed Telephone call from patient's home care nurse, Trudy ([phone]). Patient c/o nausea and reflux since starting amoxicillin. He has been taking it with food, but this has not helped. Patient is requesting a prescription for zofran or to switch to a different antibiotic if possible. Please advise. 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 Next best drug for the bacteria is probably doxycycline. Issue will be that this can be problematic with reflux although a lot of patients will tolerate it. Let's start as just two week rx. Have him let us know next week if he is tolerating and if he is then I will write for the full course. If he's not then maybe a cephalosporin or a macrolide? Bernadette Reed RN 03/06/2024 11:20 AM Signed Trudy and patient notified. Patient verbalized understanding and will call next week if the symptoms continue. Bernadette Reed RN Allergies As of Date: 03/06/2024 (No Known Allergies) Date Reviewed: 02/20/2024 Reviewed by: Lorraine Fernandes RN - Fully Assessed Reason for Visit: Symptoms [4840] Order(s):doxycycline monohydrate 100 mg tabletTake 1 tablet by mouth two times a day for 14 days.Disp: 28 tabletRfl: 0 Prescriptions as of 03/06/2024 - doxycycline monohydrate 100 mg tablet Take 1 tablet by mouth two times a day for 14 days. - acetaminophen (TYLENOL) 325 mg tablet Take 3 tablets by mouth four times daily. - ondansetron (ZOFRAN) 4 mg tablet Take 1 tablet by mouth every 8 hours as needed for nausea/vomiting. 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.9] 01/31/2024 Pseudomonas aeruginosa infection [A49.8] 01/31/2024 Enterococcus faecalis infection [A49.8] 01/31/2024 Anaerobic bacterial infection [A49.8] 01/31/2024 Thrombus [I82.90] 01/31/2024 Chest wall pain [R07.89] 02/01/2024 02/06/2024 ROXANNA (acute kidney injury) (HCC) [N17.9] 02/01/2024 02/06/2024 Pleurisy [R09.1] 02/01/2024 02/06/2024 Alteration in skin integrity related to surgica*02/03/2024 Leukocytosis [D72.829] 02/03/2024 02/06/2024 Postprocedural intraabdominal abscess [T81.43XA]02/04/2024 Open wnd anterior abdomen [S31.109A] 02/19/2024 Prescriptions ordered this encounter Disp Refills Start End DOXYCYCLINE MONOHYDRATE 100 MG TABLET 28 t* 0 03/06/2024 03/20/2024 Route: ORAL Sig: Take 1 tablet by mouth two times a day for 14 days. Medications Discontinued During This Encounter Prescriptions - Amoxicillin 500 mg tablet (Discontinued) Take 2 tablets by mouth three times a day. Encounter Status:Closed by BERNADETTE REED on 03/06/24 [facility] 02-26-2024 CNPN Telephone (INFDAK) ----- TERRIE ALLEN ([id number]) 1980 M Date Time Provider Department 02/26/24 [facility] During your visit today, we recorded the following information about you: Bernadette Reed RN 02/26/2024 1:23 PM Signed External copat lab results entered. Bernadette Reed RN Allergies As of Date: 02/26/2024 (No Known Allergies) Date Reviewed: 02/20/2024 Reviewed by: Lorraine Fernandes RN - Fully Assessed Reason for Visit: Results [95] Order(s):CMP (EXTERNAL) [6847509] Order #: [id number] CBCDIF (EXTERNAL) [[id number]] Order #: [id number] Prescriptions as of 02/26/2024 - acetaminophen (TYLENOL) 325 mg tablet Take 3 tablets by mouth four times daily. - ondansetron (ZOFRAN) 4 mg tablet Take 1 tablet by mouth every 8 hours as needed for nausea/vomiting. - apixaban (ELIQUIS DVT-PE TREAT 30D START) 5 mg (74 tabs) Take 2 tablets (10 mg) by mouth twice daily for 7 days. 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] 01/31/2024 02/06/2024 Moderate protein-calorie malnutrition (HCC) [E4*01/31/2024 Open abdominal wall wound, initial encounter [S*01/31/2024 Actinomyces infection [A42.9] 01/31/2024 Pseudomonas aeruginosa infection [A49.8] 01/31/2024 Enterococcus faecalis infection [A49.8] 01/31/2024 Anaerobic bacterial infection [A49.8] 01/31/2024 Thrombus [I82.90] 01/31/2024 Chest wall pain [R07.89] 02/01/2024 02/06/2024 ROXANAN (acute kidney injury) (HCC) [N17.9] 02/01/2024 02/06/2024 Pleurisy [R09.1] 02/01/2024 02/06/2024 Alteration in skin integrity related to surgica*02/03/2024 Leukocytosis [D72.829] 02/03/2024 02/06/2024 Postprocedural intraabdominal abscess [T81.43XA]02/04/2024 Open wnd anterior abdomen [S31.109A] 02/19/2024 Encounter Status:Closed by BERNADETTE REED on 02/26/24 [facility] Absolute lymphocyte countOrd ered By: Ricco García on 02-24-2024 Lymphocytes Auto (Unsp spec) [#/Vol] 1.25 10*3/uL 0.83-4.51 [facility] Automated blood erythrocyte count (number/volume)Ordered By: Ricco García on 02-24-2024 RBC (Bld) [#/Vol] 4.61 10*6/uL [facility] Automated blood hematocrit ( percentage)Ordered By: Ricco García on 02-24-2024 Hematocrit (Bld) [Volume fraction] 40.6 % 39 - 55 % [facility] Automated lymphocyte count a s percentage of total leukocytesOrdered By: Ricco García on 02-24-2024 Lymphocytes/100 WBC Auto (Unsp spec) 20.7 % 19-41 [facility] Basophil percentageOrdered B y: Ricco García on 02-24-2024 Basophils/100 WBC (Bld) 1.5 % 0 - 1.5 % [facility] Bilirubin [Mass/Vol] 1.50 mg/dL 0.20-1.00 [facility] Comment on above: For patients on eltr ombopag therapy, use of Dimension [place] TBIL is not recommended. Chloride [Moles/Vol] 107 mmol/L [facility] Eosinophils/100 WBC (Bld) 11.8 % Abnormal 1 - 3 % [facility] Glucose [Mass/Vol] 110 mg/dL Abnormal [facility] Comment on above: Fasting Glucose resu lt from 100 to 125 mg/dL suggests IMPAIRED HOMEOSTASIS per A.D.A. criteria. Hemoglobin (Bld) [Mass/Vol] 12.6 g/dL Abnormal 14 - 16.5 g/dL [facility] Monocytes/100 WBC (Bld) 10.6 % Abnormal 2 - 8 % [facility] Neutrophils (Bld) [#/Vol] 3.3 10*3/uL 2.0-7.7 [facility] Neutrophils/100 WBC (Bld) 55.1 % 40 - 74 % [facility] Potassium [Moles/Vol] 3.9 mmol/L 3.5 - 5.1 mmol/L [facility] Protein [Mass/Vol] 7.3 g/dL [facility] Sodium [Moles/Vol] 140 mmol/L 136 - 145 mmol/L [facility] WBC (Bld) [#/Vol] 6.0 10*3/uL 4.4-11.0 [facility] CBCDIF (EXTERNAL)on 02-24-[address] [facility] EOS ABS [facility] Lymphocytes (Bld) [#/Vol] 1.25 10*3/uL 1.2 - 4 K/uL [facility] Lymphocytes/100 WBC (Bld) 20.7 % 20 - 30 % [facility] MCHC (RBC) [Mass/Vol] 31 g/dL 30 - 3 6 g/dL [facility] MONO ABS [facility] NEUT ABS 3.3 K/uL 1.9 - 8 K/uL [facility] WBC (Bld) [#/Vol] 6 10*3/uL 3.9 - 11 K/uL [facility] CMP (EXTERNAL)on 02-24-2024 Albumin [Mass/Vol] 3.6 g/dL [facility] Alk Phos Total 146 U/L Abnormal 45 - 117 U/L [facility] AST [Catalytic activity/Vol] 101 U/L Abnormal 8 - 37 U/L [facility] Bili Total 1.5 mg/dL Abnormal 0.2 - 1 mg/dL [facility] CO2 [Moles/Vol] 31 mmol/L [facility] GFR 72 [facility] GFR AFR AMER 87 [facility] CNPNon 02-24-2024 CNPN Telephone (INFDAK) ----- TERRIE ALLEN ([id number]) 1980 M Date Time Provider Department 02/24/24 KEVIN CORONA III During your visit today, we recorded the following information about you: Bernadette Reed RN 02/24/2024 3:13 PM Addendum Telephone call from Trudy, patient's home care nurse, asking if stop date of 02-27-24 for zosyn will be honored and if PICC can be removed after the final dose. Patient would also like to know if he needs a follow up appointment with ID. He has an appointment with Dr. Christensen on 02-26-24 at 1315. Please advise. ADDI Diaz ([phone]) Kevin Corona III, MD 02/24/2024 3:43 PM Signed Since drain was able to be removed on 02/19 I think stop date of 02/26 is appropriate for both the zosyn as well as the voriconazole. Plan for continuing on amoxicillin for another 6 months. Will rx this as 1000mg TID. Yes,have him follow up with me week of 03/16. 2:30 on 03/18 or 1:30 on 03/20 if he is available. Bernadette Reed RN 02/25/2024 9:54 AM Signed Spoke with patient who stated that he finished voriconazole a week ago. Patient scheduled on 03/18. Please send the prescription for amoxicillin to [facility] in [place]. Verbal order to stop zosyn after final dose on 02-26 and to remove PICC relayed to Raji Kraus at [facility]. Voicemail left for Trudy, patient's [facility] nurse as well. ADDI Diaz Donald M III, MD 02/27/2024 8:53 AM Signed Thanks! Amoxicillin sent to [facility] in [place]. Kevin Corona III, MD 02/27/2024 8:53 AM Signed Addended by: KEVIN CORONA III on: 02/27/2024 08:53 AM Modules accepted: Orders Allergies As of Date: 02/24/2024 (No Known Allergies) Date Reviewed: 02/20/2024 Reviewed by: Lorraine Fernandes RN - Fully Assessed Reason for Visit: [employer] [1723] Order(s):Amoxicillin 500 mg tabletTake 2 tablets by mouth three times a day.Disp: 180 tabletRfl: 5 Prescriptions as of 02/27/2024 - Amoxicillin 500 mg tablet Take 2 tablets by mouth three times a day. - acetaminophen (TYLENOL) 325 mg tablet Take 3 tablets by mouth four times daily. - ondansetron (ZOFRAN) 4 mg tablet Take 1 tablet by mouth every 8 hours as needed for nausea/vomiting. - apixaban (ELIQUIS DVT-PE TREAT 30D START) 5 mg (74 tabs) Take 2 tablets (10 mg) by mouth twice daily for 7 days. Then take 1 tablet (5 mg) by mouth twice daily for 23 days Problem List As Of Date 02/24/2024 Noted Resolved ABDOMINAL PAIN UNSPEC SITE [R10.9] 12/27/2005 IRRITABLE COLON [K58.9] 04/11/2006 STOMACH FUNCTION DIS NEC [K31.89, R10.13] 04/11/2006 Finger Sprain [S63.619A] 11/21/2009 Motion Sickness [T75.3XXA] 11/21/2009 Eczema [L30.9] 11/21/2009 Intraabdominal fluid collection [R18.8] 01/31/2024 Mesenteric vein thrombosis (HCC) [K55.069] 01/31/2024 02/06/2024 Moderate protein-calorie malnutrition (HCC) [E4*01/31/2024 Open abdominal wall wound, initial encounter [S*01/31/2024 Actinomyces infection [A42.9] 01/31/2024 Pseudomonas aeruginosa infection [A49.8] 01/31/2024 Enterococcus faecalis infection [A49.8] 01/31/2024 Anaerobic bacterial infection [A49.8] 01/31/2024 Thrombus [I82.90] 01/31/2024 Chest wall pain [R07.89] 02/01/2024 02/06/2024 ROXANNA (acute kidney injury) (HCC) [N17.9] 02/01/2024 02/06/2024 Pleurisy [R09.1] 02/01/2024 02/06/2024 Alteration in skin integrity related to surgica*02/03/2024 Leukocytosis [D72.829] 02/03/2024 02/06/2024 Postprocedural intraabdominal abscess [T81.43XA]02/04/2024 Open wnd anterior abdomen [S31.109A] 02/19/2024 Prescriptions ordered this encounter Disp Refills Start End AMOXICILLIN 500 MG TABLET 180 * 5 02/27/2024 08/25/2024 Route: ORAL Sig: Take 2 tablets by mouth three times a day. Encounter Status:Closed by BERNADETTE REED on 02/25/24 [facility] Determination of erythrocyte mean corpuscular volume (MCV)Ordered By: Ricco García on 02-24-2024 MCV (RBC) [Entitic vol] 88.1 fL 79 - 98 fL [facility] Direct bilirubinOrdered By: Ricco García on 02-24-2024 Bilirubin.direct [Mass/Vol] 0.31 mg/dL 0.00-0.30 [facility] Erythrocyte distribution wid th ratioOrdered By: Ricco García on 02-24-2024 Erythrocyte distribution width (RBC) [Ratio] 13.2 % 11.6 - 14.6 % [facility] Erythrocyte distribution wid th standard deviationOrdered By: Ricco García on 02-24-2024 Erythrocyte distribution width (RBC) [Entitic vol] 42.7 fL 35.1-43.9 [facility] Immature granulocytes/100 WB C Auto (Bld)Ordered By: Ricco García on 02-24-2024 Immature granulocytes/100 WBC (Bld) 0.300 % 0.0-0.9 [facility] Comment on above: IG% - Immature Granu locytes (promyelocytes, myelocytes and metamyelocytes) > 1% indicates that a LEFT SHIFT is Present. Laboratory - Chemistry and C hemistry - challengeOrdered By: Ricco García on 02-24-2024 ALP [Catalytic activity/Vol] 146 U/L 45-117 [facility] ALT [Catalytic activity/Vol] 226 U/L Abnormal 12 - 78 U/L [facility] CO2 [Moles/Vol] 31.0 mmol/L 21.0-32.0 [facility] Globulin (S) [Mass/Vol] 3.7 g/dL 2.2-4.2 [facility] Urea nitrogen/Creatinine [Mass ratio] 10.3 mg/mg 10-20 [facility] Laboratory - Hematology and Cell countsOrdered By: Ricco García on 02-24-2024 MCH (RBC) [Entitic mass] 27.3 pg 25. 4 - 34.6 pg [facility] MCHC (RBC) [Mass/Vol] 31.0 g/dL 32-36 [facility] Nucleated RBC/100 WBC (Bld) [Ratio] 0 % 0-5 [facility] Platelet mean volume (Bld) [Entitic vol] 10.4 fL 7.4 - 10.4 fL [facility] Platelets (Bld) [#/Vol] 294 10*3/uL 140 - 440 K/uL [facility] No Panel Informationon 02-23 Interpretation and review of laboratory results Abnormal [facility] No Panel InformationOrdered By: Ricco García on 02-24-2024 Estimated GFR (MDRD) Amer 87 mL/min >60 [facility] Comment on above: GFR Calc Estimated GFR (MDRD) Non-Af Amer 72 mL/min >60 [facility] Comment on above: Non- GFR Calc Serum or plasma calcium archie urement (mass/volume)Ordered By: Ricco García on 02-24-2024 Calcium [Mass/Vol] 9.6 mg/dL 8.5 - 10. 1 mg/dL [facility] Serum or plasma creatinine m easurement (mass/volume)Ordered By: Ricco García on 02-24-2024 Creatinine [Mass/Vol] 1.17 mg/dL [facility] Comment on above: The validity of the calculated GFR & GFRAA in patients over 70 years has not been determined. Clinical correlation is essential. Serum or plasma urea nitroge n measurement (mass/volume)Ordered By: Ricco García on 02-24-2024 Urea nitrogen [Mass/Vol] 12 mg/dL [facility] Thin prep Papanicolaou smear with manual screeningOrdered By: Ricco García on 02-24-2024 Thin prep Papanicolaou smear with manual screening 3.6 g/dL 3.2-5.0 [facility] Thin prep Papanicolaou smear with manual screening 101 U/L 15-37 [facility] Thin prep Papanicolaou smear with manual screening 2 5-15 [facility] CNPNon 02-21-2024 CNPN Telephone (AGGENS3) ----- TERRIE ALLEN ([id number]) 1980 M Date Time Provider Department 02/21/24 DIANA FOSTER AGG3 During your visit today, we recorded the following information about you: Jayson Johnson LPN 02/21/2024 10:57 AM Signed Home health nurse requesting order for [facility]. Fax order to [phone]. Jayson Bey LPN, LPN 02/21/2024 11:57 AM Signed Order faxed to Stephanie. [facility]x [facility] Allergies As of Date: 02/21/2024 (No Known Allergies) Date Reviewed: 02/20/2024 Reviewed by: Lorraine Fernandes RN - Fully Assessed Reason for Visit: Orders [681] Prescriptions as of 02/21/2024 - acetaminophen (TYLENOL) 325 mg tablet Take 3 tablets by mouth four times daily. - ondansetron (ZOFRAN) 4 mg tablet Take 1 tablet by mouth every 8 hours as needed for nausea/vomiting. - apixaban (ELIQUIS DVT-PE TREAT 30D START) 5 mg (74 tabs) Take 2 tablets (10 mg) by mouth twice daily for 7 days. Then take 1 tablet (5 mg) by mouth twice daily for 23 days Problem List As Of Date 02/21/2024 Noted Resolved ABDOMINAL PAIN UNSPEC SITE [R10.9] 12/27/2005 IRRITABLE COLON [K58.9] 04/11/2006 STOMACH FUNCTION DIS NEC [K31.89, R10.13] 04/11/2006 Finger Sprain [S63.619A] 11/21/2009 Motion Sickness [T75.3XXA] 11/21/2009 Eczema [L30.9] 11/21/2009 Intraabdominal fluid collection [R18.8] 01/31/2024 Mesenteric vein thrombosis (HCC) [K55.069] 01/31/2024 02/06/2024 Moderate protein-calorie malnutrition (HCC) [E4*01/31/2024 Open abdominal wall wound, initial encounter [S*01/31/2024 Actinomyces infection [A42.9] 01/31/2024 Pseudomonas aeruginosa infection [A49.8] 01/31/2024 Enterococcus faecalis infection [A49.8] 01/31/2024 Anaerobic bacterial infection [A49.8] 01/31/2024 Thrombus [I82.90] 01/31/2024 Chest wall pain [R07.89] 02/01/2024 02/06/2024 ROXANNA (acute kidney injury) (HCC) [N17.9] 02/01/2024 02/06/2024 Pleurisy [R09.1] 02/01/2024 02/06/2024 Alteration in skin integrity related to surgica*02/03/2024 Leukocytosis [D72.829] 02/03/2024 02/06/2024 Postprocedural intraabdominal abscess [T81.43XA]02/04/2024 Open wnd anterior abdomen [S31.109A] 02/19/2024 Encounter Status:Closed by JAYSON JOHNSON on 02/21/24 Normal [facility] BRIEF OP NOTon 02-20-2024 BRIEF OP NOT HNO ID: [id number] Author: WIL SUTHERLAND MD Service: Interventional Radiology Author Type: Physician Type: Brief Op Note Filed: 02/20/2024 12:49 Note Text: BRIEF OPERATIVE / PROCEDURE NOTE LOG ID: [id number] SURGERY/PROCEDURE DATE: 02/20/2024 INCISION/PROCEDURE START TIME: 12:33 PM INCISION CLOSE/PROCEDURE END TIME: 12:40 PM SURGEON(S)/PROCEDURALIST( S) AND ADULT CROSSING GUARD(S): Surgeon(s) and Role: * Wil Sutherland MD - Primary No Additional Staff SURGERY/PROCEDURE(S): Abscess drain check ANESTHESIA: None FINDINGS: No fistula or significant residual abscess cavity. Minimal recent drain output. Drain was removed without difficulty. ESTIMATED BLOOD LOSS: 0 ml SPECIMENS: None COMPLICATIONS: None CLOSURE TECHNIQUE: Non-primary PRE-OP/PRE-PROCEDURE DIAGNOSIS: Right lower quadrant abscess. POST-OP/POST-PROCEDURE DIAGNOSIS: Abscess has resolved. No fistula noted. SIGNATURE: Wil Sutherland MD PATIENT NAME: Terrie Allen DATE: February 20, 2024 TIME: 12:48 PM [facility] IR INJ FOR ASSESSMENT CULLEN Hernandez 02-20-2024 IR INJ FOR ASSESSMENT CULLEN FREY * * *Final Report* * * DATE OF EXAM: Feb 20 2024 12:51PM [facility] [id number] - IR INJ FOR ASSESSMENT CULLEN CATH / PROCEDURE REASON: abscess * * * * Physician Interpretation * * * * Abscess drain check under fluoroscopy, 02/20/2024. Reason for procedure: History of right right lower quadrant abscess, status post drain placement. COMPARISON: February 13, 2024. Fluoroscopy time: 0.7 minutes. Total air kerma: 3.6 mGy. Dose area product: 48.1 mcGy-m2. Contrast: Approximately 5 mL of Omnipaque 300. FINDINGS: Contrast injection under fluoroscopy through the existing right pelvic drain demonstrates no residual abscess cavity and no fistula. Contrast injected flows near the tip of the catheter with no movement over time. Patient reports minimal drain output per day. Given these findings, a decision was made to remove the drain. This was done without difficulty. A sterile dressing was applied. IMPRESSION: No residual abscess cavity and no fistula. The drain was removed without difficulty. Business Support Assistant: PSCB Transcribe Date/Time: Feb 20 2024 4:14P Dictated by : WIL SUTHERLAND MD This examination was interpreted and the report reviewed and electronically signed by: WIL SUTHERLAND MD on Feb 20 2024 4:16PM EST [id number] Normal [facility] Bacteria Wnd Culton 02-18-20 24 Bacteria identified Cx Nom (Wound) CULTURE, WOUND: No growth GRAM STAIN: No organisms seen Moderate Polymorphonuclear leukocytes Normal [facility] Comment on above: Performed By: #### 6 462-6 #### [facility] CLIA [id number] [address] ALLIED HEALTHon 02-17-2024 ALLIED HEALTH HNO ID: [id number] Author: WILNER LANDAVERDE Tech Service: ? Author Type: Technologist Type: Allied Health Filed: 02/17/2024 19:51 Note Text: Radiology Service Progress Note PATIENT NAME: Terrie Allen DATE OF SERVICE: February 17, 2024 TIME: 7:51 PM PATIENT IDENTITY VERIFICATION COMPLETED USING TWO (2) IDENTIFIERS: Name and Date of confirmed by patient verbally and Name and Date of confirmed by identification band. FALL SCREENING: Has the patient had 2 falls in the last year or 1 fall with injury or currently using an Ambulatory Assistive Device (Walker, Cane, Wheelchair, Crutches, etc.)? Emergency Room Patient: Screened in ED PATIENT GENDER DATA: Male PATIENT RELEVANT IMPLANT DATA REVIEWED: Not Applicable PATIENT PRESENTS WITH AN IMPLANTABLE OR ATTACHED PLAYGROUND MONITOR: No RADIOLOGY DEPARTMENT: CT; Exam(s) Completed: Abdomen/Pelvis PERIPHERAL IV DATA: Site assessment: Clean,Dry and Intact, Site disposition Left in for next appointment SIGNED BY: Danny Whitman February 17, 2024 7:51 PM Normal [facility] CBC W Auto Differential pane l (Bld)on 02-17-2024 Basophils (Bld) [#/Vol] 0.12 10*3/uL High <0.11 [facility] Comment on above: Order Comment: Speci men Type: BLOOD SPECIMENOrdering Facility: [facility] Address: [address] [place] [address] Performed By: #### 5 7021-8 ####[facility] [id number] [address] [place] Basophils/100 WBC (Bld) 1.2 % Normal [facility] Comment on above: Order Comment: Speci men Type: BLOOD SPECIMENOrdering Facility: [facility] Address: [address] [place] [address] Performed By: #### 5 7021-8 ####[facility] [id number] OF [facility] Differential cell count method Nom (Bld) Auto Normal [facility] Comment on above: Order Comment: Speci men Type: BLOOD SPECIMENOrdering Facility: [facility] Address: [address] [place] [address] Performed By: #### 5 7021-8 ####[facility]ORYCLIA [id number] [place] [address] [place] Eosinophils (Bld) [#/Vol] 0.59 10*3/uL High <0.46 [facility] Comment on above: Order Comment: Speci men Type: BLOOD SPECIMENOrdering Facility: [facility] Address: [address] [place] [address] Performed By: #### 5 7021-8 ####[facility] [id number] [address] [place] Eosinophils/100 WBC (Bld) 5.7 % Normal [facility] Comment on above: Order Comment: Speci men Type: BLOOD SPECIMENOrdering Facility: [facility] Address: [address] [place] [address] Performed By: #### 5 7021-8 ####[facility] [id number] [address] [place] Erythrocyte distribution width (RBC) [Ratio] 13.2 % Normal 11.5-15.0 [facility] Comment on above: Order Comment: Speci men Type: BLOOD SPECIMENOrdering Facility: [facility] Address: [address] [place] [address] Performed By: #### 5 7021-8 ####[facility]ORYCLIA [id number] [address] [place] Hematocrit (Bld) [Volume fraction] 42.5 % Normal 39.0-51.0 [facility] Comment on above: Order Comment: Speci men Type: BLOOD SPECIMENOrdering Facility: [facility] Address: [address] [place] [address] Performed By: #### 5 7021-8 ####[facility]ORY[facility]IA [id number] [address] [place] Hemoglobin (Bld) [Mass/Vol] 13.2 g/dL Normal 13.0-17.0 [facility] Comment on above: Order Comment: Speci men Type: BLOOD SPECIMENOrdering Facility: [facility] Address: [address] [place] [address] Performed By: #### 5 7021-8 ####[facility]ORY[facility]IA [id number] [address] [place] Immature granulocytes (Bld) [#/Vol] 0.05 10*3/uL Normal <0.10 [facility] Comment on above: Order Comment: Speci men Type: BLOOD SPECIMENOrdering Facility: [facility] Address: [address] [place] [address] Performed By: #### 5 7021-8 ####[facility]ORYCLIA [id number] [address] [place] Immature granulocytes/100 WBC (Bld) 0.5 % Normal [facility] Comment on above: Order Comment: Speci men Type: BLOOD SPECIMENOrdering Facility: [facility] Address: [address] [place] [address] Performed By: #### 5 7021-8 ####[facility]ORATORYCLIA [id number] [address] [place] Lymphocytes (Bld) [#/Vol] 1.12 10*3/uL Normal 1.00-4.00 [facility] Comment on above: Order Comment: Speci men Type: BLOOD SPECIMENOrdering Facility: [facility] Address: [address] [place] [address] Performed By: #### 5 7021-8 ####[facility] LABORATORYCLIA [id number] [address] [place] Lymphocytes/100 WBC (Bld) 10.9 % Normal [facility] Comment on above: Order Comment: Speci men Type: BLOOD SPECIMENOrdering Facility: [facility] Address: [address] [place] [address] Performed By: #### 5 7021-8 ####[facility] LABORATORYCLIA [id number] [address] [place] MCH (RBC) [Entitic mass] 27.6 pg Normal 26.0-34.0 [facility] Comment on above: Order Comment: Speci men Type: BLOOD SPECIMENOrdering Facility: [facility] Address: [address] [place] [address] Performed By: #### 5 7021-8 ####[facility] LABORATORYCLIA [id number] [address] [place] MCHC (RBC) [Mass/Vol] 31.1 g/dL Normal 30.5-36.0 [facility] Comment on above: Order Comment: Speci men Type: BLOOD SPECIMENOrdering Facility: [facility] Address: [address] [place] [address] Performed By: #### 5 7021-8 ####[facility] LABORATORYCLIA [id number] [address] STATES [facility] MCV (RBC) [Entitic vol] 88.7 fL Normal 80.0-100.0 [facility] Comment on above: Order Comment: Speci men Type: BLOOD SPECIMENOrdering Facility: [facility] Address: [address] [place] [address] Performed By: #### 5 7021-8 ####[facility]ORYCLIA [id number] [address] [place] Monocytes (Bld) [#/Vol] 0.93 10*3/uL High <0.87 [facility] Comment on above: Order Comment: Speci men Type: BLOOD SPECIMENOrdering Facility: [facility] Address: [address] [place] [address] Performed By: #### 5 7021-8 ####[facility]ATORYCLIA [id number] [address] [place] Monocytes/100 WBC (Bld) 9.0 % Normal [facility] Comment on above: Order Comment: Speci men Type: BLOOD SPECIMENOrdering Facility: [facility] Address: [address] [place] [address] Performed By: #### 5 7021-8 ####[facility]ATORYCLIA [id number] [address] [place] Neutrophils (Bld) [#/Vol] 7.50 10*3/uL Normal 1.45-7.50 [facility] Comment on above: Order Comment: Speci men Type: BLOOD SPECIMENOrdering Facility: [facility] Address: [address] [place] [address] Performed By: #### 5 7021-8 ####[facility]ORYCLIA [id number] [address] [place] Neutrophils/100 WBC (Bld) 72.7 % Normal [facility] Comment on above: Order Comment: Speci men Type: BLOOD SPECIMENOrdering Facility: [facility] Address: [address] [place] [address] Performed By: #### 5 7021-8 ####[facility]ATORYCLIA [id number] [place] [address] [place] Nucleated RBC (Bld) [#/Vol] 10*3/uL Normal <0.01 [facility] Comment on above: Order Comment: Speci men Type: BLOOD SPECIMENOrdering Facility: [facility] Address: [address] [place] [address] Performed By: #### 5 7021-8 ####[facility]ORATORYCLIA [id number] [address] [place] Nucleated RBC/100 WBC (Bld) [Ratio] 0.0 /100 WBC Normal [facility] Comment on above: Order Comment: Speci men Type: BLOOD SPECIMENOrdering Facility: [facility] Address: [address] [place] [address] Performed By: #### 5 7021-8 ####[facility]ORATORYCLIA [id number] [place] [address] [place] Platelet mean volume (Bld) [Entitic vol] 9.8 fL Normal 9.0-12.7 [facility] Comment on above: Order Comment: Speci men Type: BLOOD SPECIMENOrdering Facility: [facility] Address: [address] [place] [address] Performed By: #### 5 7021-8 ####[facility]ORATORYCLIA [id number] [place] [address] [place] Platelets (Bld) [#/Vol] 357 10*3/uL Normal 150-400 [facility] Comment on above: Order Comment: Speci men Type: BLOOD SPECIMENOrdering Facility: [facility] Address: [address] [place] [address] Performed By: #### 5 7021-8 ####[facility]ORATORYCLIA [id number] [place] [address] [place] RBC (Bld) [#/Vol] 4.79 10*6/uL Normal 4.20-6.00 [facility] Comment on above: Order Comment: Speci men Type: BLOOD SPECIMENOrdering Facility: [facility] Address: [address] [place] [address] Performed By: #### 5 7021-8 ####[facility]ORATORYCLIA [id number] [place] [address] [place] WBC (Bld) [#/Vol] 10.31 10*3/uL Normal 3.70-11.00 [facility] Comment on above: Order Comment: Speci men Type: BLOOD SPECIMENOrdering Facility: [facility] Address: [address], [place] [address] Performed By: #### 5 7021-8 ####[facility] LABORATORYCLIA [id number] [place] [address] [place] [facility] CNPNon 02-17-2024 CNPN Telephone (AGGENS3) ----- TERRIE ALLEN ([id number]) 1980 M Date Time Provider Department 02/17/24 CLYDE HENNESSY3 During your visit today, we recorded the following information about you: Jayson Johnson LPN 02/17/2024 9:45 AM Addendum Abd abscess ,s/p R hemicolectomy, IR drain d/c on 02/07/24- Home care nurse states pt has been nauseated all weekend and has been taking zofran, occ cold sweat, denies fever or vomiting, normal BM's. Has abscessogram scheduled for and fu next week. Trudy called back states his wound bed has thick creamy drainage that is new. [place]chapman Jayson Perez LPN 02/17/2024 10:51 AM Signed Thank you for the message. I am happy to see him, but he does live far from here. Evaluation in clinic would provide part of the picture, but I anticipate he will need repeat blood work and CT imaging to rule in/or out additional intra-abdominal sequela. Would he like to have evaluation at a local Emergency Department then transfer here or evaluation at one of our Emergency Departments. We can easily do lab work here, but a CT of the abdomen/pelvis would only be obtained in the Emergency Department or inpatient setting. Thank you, MD Trudy Campoverde notified, will contact pt and family. 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 - acetaminophen (TYLENOL) 325 mg tablet Take 3 tablets by mouth four times daily. - ondansetron (ZOFRAN) 4 mg tablet Take 1 tablet by mouth every 8 hours as needed for nausea/vomiting. - apixaban (ELIQUIS DVT-PE TREAT 30D START) 5 mg (74 tabs) Take 2 tablets (10 mg) by mouth twice daily for 7 days. 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] 01/31/2024 02/06/2024 Moderate protein-calorie malnutrition (HCC) [E4*01/31/2024 Open abdominal wall wound, initial encounter [S*01/31/2024 Actinomyces infection [A42.9] 01/31/2024 Pseudomonas aeruginosa infection [A49.8] 01/31/2024 Enterococcus faecalis infection [A49.8] 01/31/2024 Anaerobic bacterial infection [A49.8] 01/31/2024 Thrombus [I82.90] 01/31/2024 Chest wall pain [R07.89] 02/01/2024 02/06/2024 ROXANNA (acute kidney injury) (HCC) [N17.9] 02/01/2024 02/06/2024 Pleurisy [R09.1] 02/01/2024 02/06/2024 Alteration in skin integrity related to surgica*02/03/2024 Leukocytosis [D72.829] 02/03/2024 02/06/2024 Postprocedural intraabdominal abscess [T81.43XA]02/04/2024 Encounter Status:Closed by JAYSON JOHNSON on 02/17/24 Normal [facility] CONSULTon 02-17-2024 CONSULT HNO ID: [id number] Author: DIANA FOSTER MD Service: General Surgery Author Type: Physician Type: Consults Filed: 02/19/2024 11:33 Note Text: CONSULT: EGS Surgery Service SERVICE DATE: 02/17/2024 SERVICE TIME: 8:37 PM REASON FOR CONSULT: wound concerns REQUESTING PHYSICIAN: ED Subjective 43 year old male with PMH of IBS, intussusception secondary to an inflammatory mass s/p R hemicolectomy c/b an abscess requiring a washout procedure who then presented as a transfer to [facility] EGS service from [facility] for a second intraabdominal abscess s/p ID drain 01/31/2024 (discharged 02/05 with IV abx via PICC per ID, Zosyn then amoxocillin x 6 months + vorconizole x 2 weeks) s/p abscessogram 02/12 showing 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 He states his [facility] nurse was changing his wound vac today and noted a sticky white/yellowish fluid at the base of the wound that had a mildly foul odor. He was recommended to come to ED. CT showed No significant change in the position of the right-sided pigtail catheter. No residual/recurrent fluid collection is seen in th right lower quadrant. Labs with WBC 10.31. He states he has not been flushing his drain since his last abscessogram per IR and the drainage has been very minimal. He states yesterday he developed some nausea and a generalized feeling of being unwell. FUNCTIONAL STATUS: Independent PAST MEDICAL HISTORY Diagnosis Date Diarrhea 12/18/05 Irritable bowel syndrome Irritable bowel PAST SURGICAL HISTORY Procedure Laterality Date PAST SURGICAL HISTORY OF left clavicle repair with plate,2004 PICC LINE INSERTION (PICC TEAM) (RIZWANA) 02/03/2024 SIGMOIDOSCOPY FLX DX W/COLLJ SPEC BR/WA IF PFRMD 12/18/05 FAMILY HISTORY Problem Relation Age of Onset Diabetes Father Diabetes Maternal Grandfather Cancer Paternal Grandmother Stroke Paternal Grandfather Social History Tobacco Use Smoking status: Never Substance Use Topics Alcohol use: No (Not in a hospital admission) Current Facility-Administered Medications Medication Dose Route Frequency iv contrast (radiology procedure) INTRAVENOUS DIRECTED PRN Allergies As of Date: 02/17/2024 (No Known Allergies) Fully Assessed 02/17/2024 COMPLETE REVIEW OF SYSTEMS: GENERAL: No weight loss, malaise or fevers. HEENT: Negative for frequent or significant headaches, No changes in hearing or vision, no nose bleeds or other nasal problems. NECK: Negative for lumps, goiter, pain and significant neck swelling. RESPIRATORY: Negative for cough, hemoptysis, wheezing, COPD, dyspnea or shortness of breath. CARDIOVASCULAR: Negative for chest pain, leg swelling, hypertension, CHF or palpitations. GI: No nausea, vomiting, or diarrhea. MUSCULOSKELETAL: Negative for joint pain or swelling, back pain or muscle pain. SKIN: Negative for lesions, rash, and itching. PSYCH: Negative for sleep disturbance, mood disorder and recent psychosocial stressors. NEURO: No history of headaches, syncope, paralysis, seizures or tremors. Objective PHYSICAL EXAM: Physical Exam Performed: GENERAL: Alert. No distress. Resting comfortably. NEURO: AANDOx3. No focal neurologic deficits. Sensation grossly intact. HEENT: Normocephalic. Atraumatic. EOMI. LUNGS: Unlabored breathing. Equal excursion bilaterally. CARDIAC: Regular rate. Good perfusion throughout. ABDOMEN: Soft, non-tender, non-distended. No rebound or guarding. LUZ drain with scant output. Midline wound with 2cm opening with some fibrinous tissue at the base, hard end feel on probe. EXTREMITIES: ESCALANTE. No deformities. SKIN: No obvious jaundice or pallor. BP 129/79 Pulse 81 Temp (Src) 99.5 (Oral) Resp 16 Wt 195 lb (88.5kg) SpO2 100% O2 Therapy: Room Air DATA: Labs: Recent Labs 02/17/24 1410 02/17/24 1409 NA 142 -- K 4.3 -- CHLOR 105 -- CO2 25 -- BUN 13 -- CREAT 1.14 -- GLUC 103* -- ANION 12 -- CA 10.0 -- ALB 4.7 -- AST 101* -- ALT 162* -- ALKPHOS 154* -- TBILI 0.9 -- WBC 10.31 -- HB 13.2 -- HCT 42.5 -- PLT 357 -- LACT -- 0.9 Diagnostic tests reviewed for today's visit: Most recent labs and imaging results. CT ABD/PEL W IVCON Final Result IMPRESSION: 1. No evidence of acute intra-abdominal or intrapelvic pathology. 2. No significant change in the position of the right-sided pigtail catheter. No residual/recurrent fluid collection is seen in the right lower quadrant. Business Support Assistant: PSCB Transcribe Date/Time: Feb 17 2024 8:01P Dictated by : JESSIKA JENKINS MD This examination was interpreted and the report reviewed and electronically signed by: JESSIKA JENKINS MD on Feb 17 2024 8:06PM EST Problem List No active problems on problem list Assessment/Plan Assessment and Plan: 43 year old male with PMH of IBS, intussusception secondary to an inflammatory mass s/p R hemicolectomy c/b an abscess requiring a washout procedure (more content not included)... Normal [facility] CT ABD/PEL W IVCONon 024 CT ABD/PEL W IVCON * * *Final Report* * * DATE OF EXAM: Feb 17 2024 7:54PM [facility] 0530 - CT ABD/PEL W IVCON / PROCEDURE REASON: Abdominal abscess/infection suspected * * * * Physician Interpretation * * * * EXAMINATION: CT ABDOMEN AND PELVIS WITH IV CONTRAST CLINICAL HISTORY: Abdominal pain TECHNIQUE: CT of the abdomen and pelvis was performed using standard technique, scanning from just above the dome of the diaphragm to the symphysis pubis. MQ: CTAP_3 Contrast: Central IV: 100 ml of Omnipaque 350 : ml of CT Radiation dose: Integrated Dose-length product (DLP) for this visit = 482 mGy*cm. CT Dose Reduction Employed: Automated exposure control(AEC) and iterative recon COMPARISON: 02/01/2024. RESULT: Lung bases: The visualized lung bases are clear. Liver: Normal liver parenchyma is noted. No focal hepatic mass is seen. The portal vein and hepatic veins are within normal limits. Bile ducts: No intra or extrahepatic bile duct dilatation is noted. Gallbladder: The gallbladder is unremarkable without transmural inflammation seen to suggest acute cholecystitis. Spleen: The spleen is of normal size and enhancement Pancreas: The pancreatic parenchyma is of normal enhancement without a discrete mass identified. No peripancreatic fluid or fat stranding is appreciated. The pancreatic duct is of normal caliber. Adrenal glands :The adrenal glands are normal in morphology. No discrete nodule is identified. Kidneys: Normal enhancement of the renal parenchyma is noted. No solid mass is identified. No discrete stone is identified. There is no evidence of hydronephrosis or hydroureter. Abdominal aorta: The abdominal aorta is of normal caliber without evidence of dissection. A normal-appearing aortic bifurcation is present. Mesentery/peritoneum: The right-sided percutaneous pigtail drainage catheter is unchanged in position with the tip in the right lower quadrant. No residual fluid collection is seen. No free air is present. Lymphadenopathy: There is no intra-abdominal, retroperitoneal, or inguinal lymphadenopathy. Ascites: No fluid collection is seen in the abdomen or pelvis. Urinary bladder: The urinary bladder is unremarkable without an intraluminal filling defect. No perivesical fat stranding is appreciated. Bowel: No dilated loops of small bowel are seen to suggest bowel obstruction. Appendix: Not identified. Osseous structures: No osteolytic or osteoblastic bone lesion is identified. No acute osseous abnormality is seen. IMPRESSION: 1. No evidence of acute intra-abdominal or intrapelvic pathology. 2. No significant change in the position of the right-sided pigtail catheter. No residual/recurrent fluid collection is seen in the right lower quadrant. Business Support Assistant: [facility] MEDICAL CENTERLouie Transcribe Date/Time: Feb 17 2024 8:01P Dictated by : JESSIKA JENKINS MD This examination was interpreted and the report reviewed and electronically signed by: JESSIKA JENKINS MD on Feb 17 2024 8:06PM EST [id number] Normal [facility] Comprehensive metabolic 2000 panelon 02-17-2024 Albumin [Mass/Vol] 4.7 g/dL Normal 3.9-4.9 [facility] Comment on above: Order Comment: Speci men Type: BLOOD SPECIMENOrdering Facility: [facility] Address: [address] [place] [address] Performed By: #### 2 4323-8 ####[facility]ATORYCLIA [id number] [place] [address] [place] ALP [Catalytic activity/Vol] 154 U/L High 38-113 [facility] Comment on above: Order Comment: Speci men Type: BLOOD SPECIMENOrdering Facility: [facility] Address: [address] [place] [address] Performed By: #### 2 4323-8 ####[facility]ORYCLIA [id number] [address] [place] ALT With P-5'-P [Catalytic activity/Vol] 162 U/L High 10-54 [facility] Comment on above: Order Comment: Speci men Type: BLOOD SPECIMENOrdering Facility: [facility] Address: [address] [place] [address] Performed By: #### 2 4323-8 ####[facility]ORATORYCLIA [id number] [address] STATES OF [facility] Anion gap [Moles/Vol] 12 mmol/L Normal 9-18 [facility] Comment on above: Order Comment: Speci men Type: BLOOD SPECIMENOrdering Facility: [facility] Address: [address] [place] [address] Performed By: #### 2 4323-8 ####[facility] LABORATORYCLIA [id number] [address] [place] AST With P-5'-P [Catalytic activity/Vol] 101 U/L High 14-40 [facility] Comment on above: Order Comment: Speci men Type: BLOOD SPECIMENOrdering Facility: [facility] Address: [address] [place] [address] Performed By: #### 2 4323-8 ####[facility]ORATORYCLIA [id number] [address] [place] Bilirubin [Mass/Vol] 0.9 mg/dL Normal 0.2-1.3 [facility] Comment on above: Order Comment: Speci men Type: BLOOD SPECIMENOrdering Facility: [facility] Address: [address] [place] [address] Performed By: #### 2 4323-8 ####[facility]ATORYCLIA [id number] [place] [address] [place] Calcium [Mass/Vol] 10.0 mg/dL Normal 8.5-10.2 [facility] Comment on above: Order Comment: Speci men Type: BLOOD SPECIMENOrdering Facility: [facility] Address: [address] [place] [address] Performed By: #### 2 4323-8 ####[facility]ORATORYCLIA [id number] [place] [address] [place] Chloride [Moles/Vol] 105 mmol/L Normal 97-105 [facility] Comment on above: Order Comment: Speci men Type: BLOOD SPECIMENOrdering Facility: [facility] Address: [address] [place] [address] Performed By: #### 2 4323-8 ####[facility]ORATORYCLIA [id number] [place] [address] [place] CO2 [Moles/Vol] 25 mmol/L Normal 22-30 [facility] Comment on above: Order Comment: Speci men Type: BLOOD SPECIMENOrdering Facility: [facility] Address: [address] [place] [address] Performed By: #### 2 4323-8 ####[facility]ORATORYCLIA [id number] [place] [address] [place] Creatinine [Mass/Vol] 1.14 mg/dL Normal 0.73-1.22 [facility] Comment on above: Order Comment: Speci men Type: BLOOD SPECIMENOrdering Facility: [facility] Address: [address] [place] [address] Performed By: #### 2 4323-8 ####[facility] LABORATORYCLIA [id number] [address] [place] Creatinine and Glomerular filtration rate.predicted panel (S/P/Bld) 82 mL/min/1.73m??? Normal >=60 [facility] Comment on above: Order Comment: [place] Type: BLOOD SPECIMENOrdering Facility: [facility] Address: [address] [place] [address] Result Comment: Tracy mated Glomerular Filtration Rate (eGFR) is calculated using the 2020 CKD-EPI creatinine equation. This equation utilizes serum creatinine, sex, and age as parameters. The creatinine assay has traceable calibration to isotope dilution-mass spectrometry. Refer to KDIGO guidelines for clinical interpretation. In patients with unstable renal function, e.g. those with acute kidney injury, the eGFR may not accurately reflect actual GFR. Performed By: #### 2 4323-8 ####[facility] LABORATORYCLIA [id number] [place] [address] [place] Glucose [Mass/Vol] 103 mg/dL High 74-99 [facility] Comment on above: Order Comment: [place] Type: BLOOD SPECIMENOrdering Facility: [facility] Address: [address] [place] [address] Result Comment: The [place] Diabetes Association (ADA) provides guidance for cutoff values for fasting glucose and random glucose. The ADA defines fasting as no caloric intake for at least 8 hours. Fasting plasma glucose results between 100 to 125 mg/dL indicate increased risk for diabetes (prediabetes). Fasting plasma glucose results greater than or equal to 126 mg/dL meet the criteria for diagnosis of diabetes. In the absence of unequivocal hyperglycemia, results should be confirmed by repeat testing. In a patient with classic symptoms of hyperglycemia or hyperglycemic crisis, random plasma glucose results greater than or equal to 200 mg/dL meet the criteria for diagnosis of diabetes. Reference: Standards of Medical Care in Diabetes 2016, [place] [employer] Association. Diabetes Care. 2016.39(Suppl 1). Performed By: #### 2 4323-8 ####[facility] LABORATORYCLIA [id number] [place] [address] [place] Potassium [Moles/Vol] 4.3 mmol/L Normal 3.7-5.1 [facility] Comment on above: Order Comment: [place] Type: BLOOD SPECIMENOrdering Facility: [facility] Address: [address] [place] [address] Performed By: #### 2 4323-8 ####[facility]ATORYCLIA [id number] [place] [address] [place] Protein [Mass/Vol] 7.8 g/dL Normal 6.3-8.0 [facility] Comment on above: Order Comment: Speci men Type: BLOOD SPECIMENOrdering Facility: [facility] Address: [address] [place] [address] Performed By: #### 2 4323-8 ####[facility]ATORYCLIA [id number] [place] [id number] [place] Sodium [Moles/Vol] 142 mmol/L Normal 136-144 [facility] Comment on above: Order Comment: Speci men Type: BLOOD SPECIMENOrdering Facility: [facility] Address: [address] [place] [address] Performed By: #### 2 4323-8 ####[facility] LABORATORYCLIA [id number] [address] [place] Urea nitrogen [Mass/Vol] 13 mg/dL Normal 9-24 [facility] Comment on above: Order Comment: Speci men Type: BLOOD SPECIMENOrdering Facility: [facility] Address: [address] [place] [address] Performed By: #### 2 4323-8 ####[facility] LABORATORYCLIA [id number] [address] [place] ED NOTEon 02-17-2024 ED NOTE HNO ID: [id number] Author: LILY TYLER RN Service: Emergency Medicine Author Type: Registered Nurse Type: ED Notes Filed: 02/17/2024 18:12 Note Text: Ct notified Normal [facility] ED NOTE HNO ID: [id number] Author: PRAKASH CRAWLEY RN Service: ? Author Type: Registered Nurse Type: ED Notes Filed: 02/17/2024 17:14 Note Text: Bed: 24-ED Expected date: Expected time: Means of arrival: Comments: Triage when clean Normal [facility] ED PROV NOTEon 02-17-2024 ED PROV NOTE HNO ID: [id number] Author: KELLI HUMMEL MD Service: Emergency Medicine Author Type: Physician Type: ED Provider Notes Filed: 02/18/2024 00:02 Note Text: Brief HPI: Terrie Allen is a 43 year old male with a PMH as documented below who presents for evaluation of increased drainage from the wound VAC. The patient had a complicated recent history in which he had surgery for intussusception. It then was complicated by an abscess and he required a LUZ drain as well as wound VAC. He states that the weekend, he has had chills and worsening nausea. No vomiting but is taking Zofran. He denies change in his bowel habits. He states that the LUZ drain has had normal output. He is followed by Dr. Foster Surgery and Dr. Corona ID. He is receiving antibiotics through PICC line currently. He denies chest pain, palpitations, shortness of breath, cough or fever. PAST MEDICAL HISTORY Diagnosis Date Diarrhea 12/18/05 Irritable bowel syndrome Irritable bowel Constitutional: Nontoxic, well-appearing without any respiratory distress. HEENT: Mucous membranes moist. Neck: Supple. Normal range of motion. Cardiovascular: Heart is regular rate and rhythm without murmurs, rubs or gallops. Pulmonary: Lungs clear to auscultation bilaterally without wheezes, rhonchi as well as rales. Gastrointestinal: Abdomen soft, nontender, nondistended. No rebound, guarding or peritoneal signs. The wound VAC is in place without surrounding erythema, drainage or discharge. LUZ drain in place as well. Genitourinary: No CVA tenderness. Muscle skeletal: Moves all extremities equally and normally. No calf tenderness or edema. MDM: 43-year-old male history intussusception status post surgery complicated by an abscess now with LUZ drain and wound VAC presenting for increasing nausea, drainage from the wound VAC and chills. Symptoms started over this weekend and have persisted. No fever, vomiting, change in his bowel habits. IV established blood work obtained. We did a CT abdomen and pelvis as well. Surgery consulted. Results all reviewed and surgery evaluated the patient. The patient cleared for discharge. Return precautions discussed. See resident/PA note for disposition details KELLI HUMMEL 02/18/24 0002 Normal [facility] ED PROV NOTE HNO ID: [id number] Author: KELLI HUMMEL MD Service: Emergency Medicine Author Type: Resident Type: ED Provider Notes Filed: 02/18/2024 01:56 Note Text: ----- Attestation signed by Kelli Hummel MD at 02/18/2024 1:56 AM Attending Note I evaluated the patient and personally participated in the spears components. I agree with the resident's findings and plan as documented and have discussed the case and management of the patient's care with the resident. Signature: Kelli Hummel MD Date: 02/18/2024 Time: 1:56 AM ----- ED Provider Note Patient Name: Terrie Allen : 1980 SERVICE DATE: 02/17/24 History Patient presents with: Abdominal Pain: Pt arrives ambulatory through triage states [facility] RN sent in for poss infection. Pt had a recent I+D of abd abscess 1 wk ago. Pt arrives with wound vacc and LUZ drain in place. [facility] RN worried for infection at site. +swelling. Pt denies fevers/drainage. +nausea. Currently on ATBX 43-year-old male presents to the emergency department for evaluation of chills and concern for abdominal infection. Patient states that he has received an operation for intussusception which was complicated by an abscess for which he had additional operation for and recent LUZ drainage and wound VAC placement on 01/31/2024. Patient states that since 2 days ago, he has been experiencing nausea and chills. The nurse who takes care of of his wound VAC stated that he had a foul-smelling odor and evidence of purulent drainage concerning for infection and wanted him evaluated in the emergency department. Patient denies any fever, shortness of breath, abdominal pain, chest pain, lightheadedness, dizziness. In the emergency department, vital stable. Of note, patient has been receiving Zosyn and Zofran outpatient. PAST MEDICAL HISTORY Diagnosis Date Diarrhea 12/18/05 Irritable bowel syndrome Irritable bowel PAST SURGICAL HISTORY Procedure Laterality Date PAST SURGICAL HISTORY OF left clavicle repair with plate,2004 PICC LINE INSERTION (PICC TEAM) (AK) 02/03/2024 SIGMOIDOSCOPY FLX DX W/COLLJ SPEC BR/WA IF PFRMD 12/18/05 FAMILY HISTORY Problem Relation Age of Onset Diabetes Father Diabetes Maternal Grandfather Cancer Paternal Grandmother Stroke Paternal Grandfather Social History Tobacco Use Smoking status: Never Smokeless tobacco: Not on file Substance and Sexual Activity Alcohol use: No Drug use: Not on file Sexual activity: Yes Partners: Female control/protection: Inserts ALLERGIES No Known Allergies Review of Systems Constitutional: Positive for chills. Negative for fever. Respiratory: Negative for chest tightness and shortness of breath. Cardiovascular: Negative for chest pain and palpitations. Gastrointestinal: Positive for nausea. Negative for vomiting. Skin: Positive for wound. Neurological: Negative for dizziness, light-headedness and headaches. All other systems reviewed and are negative. Physical Exam Vitals [02/17/24 1249] BP Pulse Temp Temp src Resp SpO2 Weight Height 129/79 81 37.5 ?C (99.5 ?F) Oral 16 100 % 88.5 kg (195 lb) -- Physical Exam Vitals and nursing note reviewed. Constitutional: Appearance: He is well-developed. Cardiovascular: Rate and Rhythm: Normal rate and regular rhythm. Heart sounds: Normal heart sounds. Pulmonary: Effort: Pulmonary effort is normal. Breath sounds: Normal breath sounds. Abdominal: Palpations: Abdomen is soft. Comments: Wound VAC in addition to LUZ tube in place. No evidence of purulent drainage or overlying skin infection upon examination. Skin: General: Skin is warm and dry. Capillary Refill: Capillary refill takes less than 2 seconds. Neurological: Mental Status: He is alert. Diagnostic Testing ED Labs Ordered and Reviewed COMPREHENSIVE METABOLIC PANEL - Abnormal; Notable for the following components: Result Value Ref Range Alkaline Phosphatase 154 (*) 38 - 113 U/L AST 101 (*) 14 - 40 U/L ALT 162 (*) 10 - 54 U/L Glucose 103 (*) 74 - 99 mg/dL All other components within normal limits COMPLETE BLOOD COUNT AND DIFFERENTIAL - Abnormal; Notable for the following components: Abs Butts 0.93 (*) <0.87 k/uL Abs Eosin 0.59 (*) <0.46 k/uL Abs Baso 0.12 (*) <0.11 k/uL All other components within normal limits LACTIC ACID,POC(AK) Narrative: Meter ID:ED RESP 2 Choir Singer Name:Justin Romero Location:[facility], [address] [place] [address], [id number] LACTIC ACID,POC(AK) Procedures ED Course / Clinical Impression Clinical Impressions as of 02/17/24 2230 Generalized abdominal pain MDM / Disposition / Plan 43-year-old male presented to the emergency department for evaluation of abdominal pain and concern for intra-abdominal abscess. Upon arriv (more content not included)... Normal [facility] ED Triage Noteon 02-17-2024 ED Triage Note HNO ID: [id number] Author: DAMIEN MEREDITH APRN.BEAUTY SHOP MANAGER Service: Emergency Medicine Author Type: Nurse Practitioner Type: ED Triage Notes Filed: 02/17/2024 13:10 Note Text: ED TRIAGE PROVIDER NOTE Patient Name: Terrie Allen Service Date: 02/17/24 BRIEF HPI: This is a 43 year old male who presents to the ED with: Significant abdominal history with recent surgery for intussusception, reentry into the abdominal cavity for abscess with drain and currently has a wound VAC. Patient states home health nurse noticed foul smell and inconsistent drainage suspicious of infection. Patient temp is 99.5. Patient speaking in full sentences but tearful. BRIEF EXAM: NAD Awake and Alert Non labored breathing No focal neurological deficits INITIAL WORKUP AND DECISION MAKING: Orders Placed This Encounter COMP METABOLIC PANEL CBC + DIFF LACTIC ACID,POC(AK) SIGNATURE: Damien Meredith APRN.BEAUTY SHOP MANAGER Normal [facility] BRIEF OP NOTon 02-13-2024 BRIEF OP NOT HNO ID: [id number] Author: CHARLES ORTA MD Service: Radiology Author Type: Physician Type: Brief Op Note Filed: 02/13/2024 07:45 Note Text: INTERVENTIONAL RADIOLOGY POST PROCEDURE NOTE DATE: 02/13/24 NAME: Terrie Allen LOG ID: [id number] Pre-Procedure Diagnosis: RLQ abscess with fistula Choir Singer: Surgeon(s) and Role: * Charles Orta MD, MD - Primary Procedure: Abscessogram Anesthesia: None Findings: Cavity decompressed. Small fistula to bowel Estimated Blood Loss: 0 ml Specimen: None Complications: None Plan: Stop flushing and repeat abscessogram in 1 week Post-Op/Post-Procedure Diagnosis: RLQ abscess with fistula Normal [facility] Guidance for drainage and pl acement of drainage catheteron 02-13-2024 [facility] IR INJ FOR ASSESSMENT CULLEN Fagan ATHon 02-13-2024 IR INJ FOR ASSESSMENT CULLEN FREY * * *Final Report* * * DATE OF EXAM: Feb 13 2024 7:51AM AKA [id number] - IR INJ FOR ASSESSMENT CULLEN CATH / PROCEDURE REASON: abscess * * * * Physician Interpretation * * * * EXAM TITLE: ABSCESSOGRAM DATE: February 13, 2024 at 7:15 AM COMPARISON: CT-guided placement of drainage catheter from January 31, 2024 CLINICAL INDICATION/HISTORY: The patient is a 43-year-old male with bowel obstruction and intussusception treated with right hemicolectomy with postoperative right lower quadrant abscess which has been drained percutaneously. The patient has been having limited output from his drinking. Fluoroscopy Radiation dose: Integrated dose-area product (DAP) for this visit = 3 mGy*cm. TECHNIQUE: Under fluoroscopic guidance contrast was injected through the abscess drain and after spot imaging as much of the contrast was removed as was possible. 0 minutes and 48 seconds of fluoroscopy time was utilized for the procedure. A total of 5 cc of Omnipaque 300 was utilized for the study. 2 sets of cine fluoroscopic images were saved. FINDINGS: The abscess cavity is decompressed around the drain. There is a small fistulous connection to what appears to be ileum. Contrast does back along the catheter to the skin entrance site. IMPRESSION: The right lower quadrant abscess cavity is decompressed and there is a small fistulous connection to what appears to be ileum. The patient is instructed to stop flushing and we will repeat the abscessogram in one week. If the fistulous connection is still present consideration of treatment with Tisseel will be made. Business Support Assistant: DELGADO Transcribe Date/Time: Feb 13 2024 9:34A Dictated by : CHARLES ORTA MD This examination was interpreted and the report reviewed and electronically signed by: CHARLES ORTA MD on Feb 13 2024 9:38AM EST [id number] [facility] TERRIE ALLEN ([id number]) 1980 M Date Time Provider Department [facility]/12[facility] During your visit today, we recorded the following information about you: Bernadette Reed RN 02/12/2024 8:44 AM Signed External copat labs entered. Bernadette Reed RN Allergies As of Date: 02/12/2024 (No Known Allergies) Date Reviewed: 02/03/2024 Reviewed by: Vicki Blake RN - Fully Assessed Reason for Visit: Results [95] Order(s):CBCDIF (EXTERNAL) [3356206] Order #: [id number] CMP (EXTERNAL) [[id number]] Order #: [id number] Prescriptions as of 02/12/2024 - voriconazole (VFEND) 200 mg tablet Take 1 tablet by mouth two times a day for 14 days. - acetaminophen (TYLENOL) 325 mg tablet Take 3 tablets by mouth four times daily. - ondansetron (ZOFRAN) 4 mg tablet Take 1 tablet by mouth every 8 hours as needed for nausea/vomiting. - traMADol (ULTRAM) 50 mg tablet Take 1 tablet by mouth every 8 hours as needed for pain for up to 7 days. - apixaban (ELIQUIS DVT-PE TREAT 30D START) 5 mg (74 tabs) Take 2 tablets (10 mg) by mouth twice daily for 7 days. 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] 01/31/2024 02/06/2024 Moderate protein-calorie malnutrition (HCC) [E4*01/31/2024 Open abdominal wall wound, initial encounter [S*01/31/2024 Actinomyces infection [A42.9] 01/31/2024 Pseudomonas aeruginosa infection [A49.8] 01/31/2024 Enterococcus faecalis infection [A49.8] 01/31/2024 Anaerobic bacterial infection [A49.8] 01/31/2024 Thrombus [I82.90] 01/31/2024 Chest wall pain [R07.89] 02/01/2024 02/06/2024 ROXANNA (acute kidney injury) (HCC) [N17.9] 02/01/2024 02/06/2024 Pleurisy [R09.1] 02/01/2024 02/06/2024 Alteration in skin integrity related to surgica*02/03/2024 Leukocytosis [D72.829] 02/03/2024 02/06/2024 Postprocedural intraabdominal abscess [T81.43XA]02/04/2024 Encounter Status:Closed by BERNADETTE REED on 02/12/24 Normal [facility] CBCDIF (EXTERNAL)on 02-10-[address] [facility] Basophils/100 WBC (Bld) 1.9 % Abnormal 0 - 1.5 % [facility] EOS ABS [facility] Eosinophils/100 WBC (Bld) 10.5 % Abnormal 1 - 3 % [facility] Erythrocyte distribution width (RBC) [Ratio] 13.1 % 11.6 - 14.6 % [facility] Hematocrit (Bld) [Volume fraction] 41 % 39 - 55 % [facility] Hemoglobin (Bld) [Mass/Vol] 12.6 g/dL Abnormal 14 - 16.5 g/dL [facility] Lymphocytes (Bld) [#/Vol] 1.32 10*3/uL 1.2 - 4 K/uL [facility] Lymphocytes/100 WBC (Bld) 21 % 20 - 30 % [facility] MCH (RBC) [Entitic mass] 27.6 pg 25. 4 - 34.[address] [facility] MCHC (RBC) [Mass/Vol] 30.7 g/dL 30 - 3 6 g/dL [facility] MCV (RBC) [Entitic vol] 89.7 fL 79 - 98 fL [facility] MONO ABS [facility] Monocytes/100 WBC (Bld) 9.4 % Abnormal 2 - 8 % [facility] NEUT ABS 3.6 K/uL 1.9 - 8 K/uL [facility] Neutrophils/100 WBC (Bld) 56.7 % 40 - 74 % [facility] Platelet mean volume (Bld) [Entitic vol] 10.3 fL 7.4 - 10.[address] [facility] Platelets (Bld) [#/Vol] 487 10*3/uL Abnormal 140 - 440 K/uL [facility] RBC (Bld) [#/Vol] 4.57 10*6/uL 4 - 6 M/uL [facility] WBC (Bld) [#/Vol] 6.3 10*3/uL 3.9 - 11 K/uL [facility] CMP (EXTERNAL)on 02-10-2024 Albumin [Mass/Vol] 3.6 g/dL 3.2 - 4.6 gm/dL [facility] Alk Phos Total 106 U/L 45 - 117 U/L [facility] ALT [Catalytic activity/Vol] 79 U/L Abnormal 12 - 78 U/L [facility] AST [Catalytic activity/Vol] 47 U/L Abnormal 8 - 37 U/L [facility] Bili Total 1.1 mg/dL Abnormal 0.2 - 1 mg/dL [facility] Calcium [Mass/Vol] 9.7 mg/dL 8.5 - 10. 1 mg/dL [facility] Chloride [Moles/Vol] 106 mmol/L 98 - 10 7 MEQ/L [facility] CO2 [Moles/Vol] 26 mmol/L 21 - 32 MEQ/L [facility] Creatinine [Mass/Vol] 1.41 mg/dL Abnormal 0.6 - 1.3 MG/DL [facility] GFR AFR AMER 70 mL/MIN 60 mL/MIN [facility] GFR/1.73 sq M.predicted among non-blacks MDRD (S/P/Bld) [Vol rate/Area] 58 mL/min/{1.73_m2} Abnormal 60 mL/MIN [facility] Glucose [Mass/Vol] 93 mg/dL 74 - 106 MG/DL [facility] Potassium [Moles/Vol] 3.6 mmol/L 3.5 - 5.1 mmol/L [facility] Protein [Mass/Vol] 8.2 g/dL 6.4 - 8.2 gm/dL [facility] Sodium [Moles/Vol] 139 mmol/L 136 - 145 mmol/L [facility] Urea nitrogen [Mass/Vol] 18 mg/dL 7 - 18 MG/DL [facility] CNPJonelle 02-07-2024 MATT Telephone ([id number]) ----- TERRIE ALLEN ([id number]) 1980 M Date Time Provider Department 02/07/24 ACUTE CARE SURGEON NICKO During your visit today, we recorded the following information about you: Wilner Kincaid LPN 02/07/2024 1:26 PM Signed [facility] called into the office wanting to know you are agreeable to sign orders for [facility] for nursing home/wound care for this patient? If so, they need LUZ Drain dressing change orders too. Please advise. Wilner Owen LPN, LPN 02/07/2024 3:27 PM Signed Thank you for the message. I will sign home care orders including for LUZ drain dressing changes. Thank you, Clyde Hennessy MD Called [facility] nurse back and notified of above message. They will fax orders for signature. Mayte ALVINA Allergies As of Date: 02/07/2024 (No Known Allergies) Date Reviewed: 02/03/2024 Reviewed by: Vicki Blake RN - Fully Assessed Reason for Visit: Director Of Transportation - Other [3602] Prescriptions as of 02/07/2024 - voriconazole (VFEND) 200 mg tablet Take 1 tablet by mouth two times a day for 14 days. - acetaminophen (TYLENOL) 325 mg tablet Take 3 tablets by mouth four times daily. - ondansetron (ZOFRAN) 4 mg tablet Take 1 tablet by mouth every 8 hours as needed for nausea/vomiting. - traMADol (ULTRAM) 50 mg tablet Take 1 tablet by mouth every 8 hours as needed for pain for up to 7 days. - apixaban (ELIQUIS DVT-PE TREAT 30D START) 5 mg (74 tabs) Take 2 tablets (10 mg) by mouth twice daily for 7 days. 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] 01/31/2024 02/06/2024 Moderate protein-calorie malnutrition (HCC) [E4*01/31/2024 Open abdominal wall wound, initial encounter [S*01/31/2024 Actinomyces infection [A42.9] 01/31/2024 Pseudomonas aeruginosa infection [A49.8] 01/31/2024 Enterococcus faecalis infection [A49.8] 01/31/2024 Anaerobic bacterial infection [A49.8] 01/31/2024 Thrombus [I82.90] 01/31/2024 Chest wall pain [R07.89] 02/01/2024 02/06/2024 ROXANNA (acute kidney injury) (HCC) [N17.9] 02/01/2024 02/06/2024 Pleurisy [R09.1] 02/01/2024 02/06/2024 Alteration in skin integrity related to surgica*02/03/2024 Leukocytosis [D72.829] 02/03/2024 02/06/2024 Postprocedural intraabdominal abscess [T81.43XA]02/04/2024 Encounter Status:Closed by WILNER KINCAID on 02/07/24 Normal [facility] Basic metabolic 2000 panelon 02-06-2024 Anion gap [Moles/Vol] 10 mmol/L Normal 9-18 [facility] Comment on above: Order Comment: Speci men Type: BLOOD SPECIMENOrdering Facility: [facility] Address: [address] [place] [address] Performed By: #### 2 4321-2 ####[facility] LABORATORYCLIA [id number] [place] [address] [place] Calcium [Mass/Vol] 9.5 mg/dL Normal 8.5-10.2 [facility] Comment on above: Order Comment: Speci men Type: BLOOD SPECIMENOrdering Facility: [facility] Address: [address] [place] [address] Performed By: #### 2 4321-2 ####[facility] LABORATORYCLIA [id number] [place] [address] [place] Chloride [Moles/Vol] 103 mmol/L Normal 97-105 [facility] Comment on above: Order Comment: Speci men Type: BLOOD SPECIMENOrdering Facility: [facility] Address: [address] [place] [address] Performed By: #### 2 4321-2 ####[facility] LABORATORYCLIA [id number] [place] [address] [place] CO2 [Moles/Vol] 29 mmol/L Normal 22-30 [facility] Comment on above: Order Comment: Speci men Type: BLOOD SPECIMENOrdering Facility: [facility] Address: [address] [place] [address] Performed By: #### 2 4321-2 ####[facility] LABORATORYCLIA [id number] [place] [id number] [place] Creatinine [Mass/Vol] 1.28 mg/dL High 0.73-1.22 [facility] Comment on above: Order Comment: Speci men Type: BLOOD SPECIMENOrdering Facility: [facility] Address: [address] [place] [address] Performed By: #### 2 4321-2 ####[facility] LABORATORYCLIA [id number] [place] [id number] [facility] Creatinine and Glomerular filtration rate.predicted panel (S/P/Bld) 71 mL/min/1.73m??? Normal >=60 [facility] Comment on above: Order Comment: Speci men Type: BLOOD SPECIMENOrdering Facility: [facility] Address: [address] [place] [address] Result Comment: Tracy mated Glomerular Filtration Rate (eGFR) is calculated using the 2020 CKD-EPI creatinine equation. This equation utilizes serum creatinine, sex, and age as parameters. The creatinine assay has traceable calibration to isotope dilution-mass spectrometry. Refer to KDIGO guidelines for clinical interpretation. In patients with unstable renal function, e.g. those with acute kidney injury, the eGFR may not accurately reflect actual GFR. Performed By: #### 2 4321-2 ####[facility]ORATORYCLIA [id number] [place] [id number] [place] Glucose [Mass/Vol] 101 mg/dL High 74-99 [facility] Comment on above: Order Comment: Speci men Type: BLOOD SPECIMENOrdering Facility: [facility] Address: [address] [place] [address] Result Comment: The [place] Diabetes Association (ADA) provides guidance for cutoff values for fasting glucose and random glucose. The ADA defines fasting as no caloric intake for at least 8 hours. Fasting plasma glucose results between 100 to 125 mg/dL indicate increased risk for diabetes (prediabetes). Fasting plasma glucose results greater than or equal to 126 mg/dL meet the criteria for diagnosis of diabetes. In the absence of unequivocal hyperglycemia, results should be confirmed by repeat testing. In a patient with classic symptoms of hyperglycemia or hyperglycemic crisis, random plasma glucose results greater than or equal to 200 mg/dL meet the criteria for diagnosis of diabetes. Reference: Standards of Medical Care in Diabetes 2016, [place] [employer] Association. Diabetes Care. 2016.39(Suppl 1). Performed By: #### 2 4321-2 ####[facility]ORATORYCLIA [id number] [address] STATES OF [facility] Potassium [Moles/Vol] 3.7 mmol/L Normal 3.7-5.1 [facility] Comment on above: Order Comment: Speci men Type: BLOOD SPECIMENOrdering Facility: [facility] Address: [address] [place] [address] Performed By: #### 2 4321-2 ####[facility]ORATORYCLIA [id number] [address] STATES [facility] Sodium [Moles/Vol] 142 mmol/L Normal 136-144 [facility] Comment on above: Order Comment: Walkeri sergio Type: BLOOD SPECIMENOrdering Facility: [facility] Address: [address] [place] [address] Performed By: #### 2 4321-2 ####[facility]ORATORYCLIA [id number] [address] STATES [facility] Urea nitrogen [Mass/Vol] 11 mg/dL Normal 9-24 [facility] Comment on above: Order Comment: Walkeri sergio Type: BLOOD SPECIMENOrdering Facility: [facility] Address: [address] [place] [address] Performed By: #### 2 4321-2 ####[facility]ORATORYCLIA [id number] [address] CBC panel Auto (Bld)on 02-05 Erythrocyte distribution width (RBC) [Ratio] 13.0 % Normal 11.5-15.0 [facility] Comment on above: Order Comment: Walkeri sergio Type: BLOOD SPECIMENOrdering Facility: [facility] Address: [address] [place] [address] Performed By: #### 5 8410-2 ####[facility] LABORATORYCLIA [id number] [address] Hematocrit (Bld) [Volume fraction] 35.8 % Low 39.0-51.0 [facility] Comment on above: Order Comment: Speci men Type: BLOOD SPECIMENOrdering Facility: [facility] Address: [address] [place] [address] Performed By: #### 5 8410-2 ####[facility]ORATORYCLIA [id number] [address] OF [facility] Hemoglobin (Bld) [Mass/Vol] 11.3 g/dL Low 13.0-17.0 [facility] Comment on above: Order Comment: Speci men Type: BLOOD SPECIMENOrdering Facility: [facility] Address: [address] [place] [address] Performed By: #### 5 8410-2 ####[facility]ORATORYCLIA [id number] [address] MCH (RBC) [Entitic mass] 28.1 pg Normal 26.0-34.0 [facility] Comment on above: Order Comment: Speci men Type: BLOOD SPECIMENOrdering Facility: [facility] Address: [address] [place] [address] Performed By: #### 5 8410-2 ####[facility] LABORATORYCLIA [id number] [address] [place] MCHC (RBC) [Mass/Vol] 31.6 g/dL Normal 30.5-36.0 [facility] Comment on above: Order Comment: Speci men Type: BLOOD SPECIMENOrdering Facility: [facility] Address: [address] [place] [address] Performed By: #### 5 8410-2 ####[facility] LABORATORYCLIA [id number] [address] OF [place] MCV (RBC) [Entitic vol] 89.1 fL Normal 80.0-100.0 [facility] Comment on above: Order Comment: Speci men Type: BLOOD SPECIMENOrdering Facility: [facility] Address: [address] [place] [address] Performed By: #### 5 8410-2 ####[facility] LABORATORYCLIA [id number] [address] [place] Nucleated RBC (Bld) [#/Vol] 10*3/uL Normal <0.01 [facility] Comment on above: Order Comment: Speci men Type: BLOOD SPECIMENOrdering Facility: [facility] Address: [address] [place] [address] Performed By: #### 5 8410-2 ####[facility] LABORATORYCLIA [id number] [place] [address] [place] Platelet mean volume (Bld) [Entitic vol] 10.0 fL Normal 9.0-12.7 [facility] Comment on above: Order Comment: Speci men Type: BLOOD SPECIMENOrdering Facility: [facility] Address: [address] [place] [address] Performed By: #### 5 8410-2 ####[facility] LABORATORYCLIA [id number] [place] [address] [place] Platelets (Bld) [#/Vol] 461 10*3/uL High 150-400 [facility] Comment on above: Order Comment: Speci men Type: BLOOD SPECIMENOrdering Facility: [facility] Address: [address] [place] [address] Performed By: #### 5 8410-2 ####[facility] LABORATORYCLIA [id number] [place] [address] [place] RBC (Bld) [#/Vol] 4.02 10*6/uL Low 4.20-6.00 [facility] Comment on above: Order Comment: Speci men Type: BLOOD SPECIMENOrdering Facility: [facility] Address: [address] [place] [address] Performed By: #### 5 8410-2 ####[facility] LABORATORYCLIA [id number] [place] [address] [facility] OF [place] WBC (Bld) [#/Vol] 7.05 10*3/uL Normal 3.70-11.00 [facility] Comment on above: Order Comment: [place] Type: BLOOD SPECIMENOrdering Facility: [facility] Address: [address] [place] [address] Performed By: #### 5 8410-2 ####[facility] LABORATORYCLIA [id number] [place] [address] [facility] CNDSon 02-06-2024 CNDS HNO ID: [id number] Author: EMRE MEIER APRN.BEAUTY SHOP MANAGER Service: General Surgery Author Type: Nurse Practitioner Type: Discharge Summary Filed: 02/06/2024 15:10 Note Text: ----- Attestation signed by Ac Torres MD at 02/07/2024 2:14 PM Ac Torres MD ----- DISCHARGE SUMMARY PATIENT NAME: Terrie Allen Code Status: Not on file Highest Readmission Risk Score: 13 The 30 day readmissions risk score is derived from an internally validated risk model which evaluates patient level characteristics, utilization history, medication orders and lab results up until the day of discharge. Patients with a score of 40 or above are considered highest risk for readmission. Specific patient level drivers will be listed at the bottom of the summary. Admission Information Admission Information ADMIT DATE: 01/31/2024 DISCHARGE DATE: 02/06/2024 MY DOCTORS AND MEDICAL TEAM: My Main Hospital Doctor: Ac Torres MD Primary Care Provider: No primary care provider on file. My Medical Team Members: Treatment Team: Attending Provider: Ac Torres MD Consulting: Kevin Corona III, MD MY CONDITION AT DISCHARGE: Stable REASON I WAS IN THE HOSPITAL: Intraabdominal abscess s/p Right hemicolectomy SUMMARY OF WHAT HAPPENED WHILE I WAS IN THE HOSPITAL: Mr. Allen is a 43 year old male with history of IBS, intussusception secondary to an inflammatory mass s/p R hemicolectomy complicated by an abscess requiring a washout procedure who then presented as a transfer from [facility] for a second intraabdominal abscess formation. Mr. Allen initially presented at [facility] on 01/10/2024 and was found to have an intussusception. He had emergency surgery, recovered well with return of bowel function was discharged on 01/15. He then was readmitted with abdominal pain, fevers, and chills on 01/17 and was noted to have an abscess and Surgical Site Infection. He then underwent a second operation for washout and local wound care to midline incision. Mr. Louise developed a Leukocytosis, repeat CT scan demonstrated a second abscess formation therefore a decision to transfer to [facility] for Interventional Radiology for drainage was made. Following drain placement on 01/31/2024 of the abscess, Infectious Disease was consulted for antibiotic management in addition to the Wound Care Team and a wound vac was applied to open area of the midline incision. The midline from [facility] was removed and a PICC line was placed on 02/03/2024. Mr. Louise is stable for discharge to home with Home Health Care for IV antibiotics and Wound Vac therapy. 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 Mr. Allen should return to Interventional Radiology in about one week for a drain study and possible drain removal. He should continue follow up with his surgeon at [facility]. OTHER PROBLEMS/DIAGNOSIS: Principal Problem: Intraabdominal fluid collection Active Problems: Moderate protein-calorie malnutrition (HCC) Open abdominal wall wound, initial encounter Actinomyces infection Pseudomonas aeruginosa infection Enterococcus faecalis infection Anaerobic bacterial infection Alteration in skin integrity related to surgical incision Postprocedural intraabdominal abscess Resolved Problems: Mesenteric vein thrombosis (HCC) Chest wall pain ROXANNA (acute kidney injury) (HCC) Pleurisy Leukocytosis OPERATIONS PERFORMED WHILE IN THE HOSPITAL: None IMPORTANT TEST/PROCEDURES: Interventional Radiology-drain placement 01/31/2024 PICC line placement 02/03/2024 TEST RESULTS NOT AVAILABLE AT THIS TIME: No pending results Discharge Disposition Discharge Disposition: Home With Self Care Activity When You Leave the Hospital Lifting is restricted to: 15 pounds May bathe and shower Avoid tubs/pools while drain in place and until abdominal wound completely healed No prolonged bedrest, longer than 8 hours in a 24 hour period Diet Instructions Drink 6 to 8 glasses of fluids per day Regular For Pain When You Leave the Hospital No alcohol or driving while on pain medication Use acetaminophen (Tylenol) as recommended on the bottle Use ibuprofen (Motrin, Advil) as recommended on the bottle Use the dispensed medication (see prescription) You should use an fwlj-fqi-ztrnsdl stool softener (Docusate sodium) and/or a fiber supplement (Metamucil, Fiber Con) every day while taking prescribed pain medication Wound/Surgical Site Care Drain care as instructed by nurse Call Your Doctor If There is severe pain at the operative site You have lightheadedness, fainting, or confusion You have persistent nausea/vomiting over 24 hours Y (more content not included)... Normal [facility] [place] 02-06-2024 MATT Telephone (INFDAK) ----- TERRIE ALLEN ([id number]) 1980 [address] Date Time Provider Department 02/06/24 KEVIN CORONA III During your visit today, we recorded the following information about you: Bernadette Reed, ADDI 02/06/2024 8:14 AM Addendum -Prior authorization for voriconazole submitted to [facility] on 02/05/24 via cover My Meds. Authorization denied. -Urgent appeal faxed to [facility] at fax# [phone]. -Medication is available at [facility] pharmacy via [facility] for $46.14 if appeal is denied. ADDI Diza Ann Marie, RN 02/07/2024 3:31 PM Signed Notification from [facility] [employer] that Voriconazole is now approved. Patient has already picked up the prescription, used [facility]. Bernadette Reed RN Allergies As of Date: 02/06/2024 (No Known Allergies) Date Reviewed: 02/03/2024 Reviewed by: Vicki Blake RN - Fully Assessed Reason for Visit: Medication Authorization [[id number]] Prescriptions as of 02/07/2024 - voriconazole (VFEND) 200 mg tablet Take 1 tablet by mouth two times a day for 14 days. - acetaminophen (TYLENOL) 325 mg tablet Take 3 tablets by mouth four times daily. - ondansetron (ZOFRAN) 4 mg tablet Take 1 tablet by mouth every 8 hours as needed for nausea/vomiting. - traMADol (ULTRAM) 50 mg tablet Take 1 tablet by mouth every 8 hours as needed for pain for up to 7 days. - apixaban (ELIQUIS DVT-PE TREAT 30D START) 5 mg (74 tabs) Take 2 tablets (10 mg) by mouth twice daily for 7 days. 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] 01/31/2024 Pseudomonas aeruginosa infection [A49.8] 01/31/2024 Enterococcus faecalis infection [A49.8] 01/31/2024 Anaerobic bacterial infection [A49.8] 01/31/2024 Thrombus [I82.90] 01/31/2024 Chest wall pain [R07.89] 02/01/2024 02/06/2024 ROXANNA (acute kidney injury) (HCC) [N17.9] 02/01/2024 02/06/2024 Pleurisy [R09.1] 02/01/2024 02/06/2024 Alteration in skin integrity related to surgica*02/03/2024 Leukocytosis [D72.829] 02/03/2024 02/06/2024 Postprocedural intraabdominal abscess [T81.43XA]02/04/2024 Encounter Status:Closed by BERNADETTE REED on 02/06/24 [facility] CONSULT PROGon 02-06-2024 CONSULT PROG HNO ID: [id number] Author: KEVIN CORONA III, MD Service: Infectious Disease Author Type: Physician Type: Consult Progress Note Filed: 02/06/2024 11:23 Note Text: Assessment Complicated intra-abdominal infection. 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 Coli, pseudomonas when had abscess New organisms from most recent abscess culture with lactobacillus, C. Lusitaniae, S. Cerevisiae-> susceptibility of the latter pending Last IR drain was on 01/30 Plan IV therapy x 1 month- zosyn for now then after drain removed can narrow to just cover actinomyces, then to amoxicillin x 6 months Voriconazole- x 2 weeks. Treat til 4-7 days after drain removed. Changing to [facility] as waiting on appeal and through [facility] medication is just 43 dollars. Subjective Communicated with Autumn Cardoso from primary team. They are planning to cancel the US of the thigh since hemoglobin has been stable and seemed to be limited just to lovenox site. Saw patient while he was up and walking in the hallway. Looking well and feeling well with some mild nausea today. Objective Data: Recent Labs 02/06/24 0412 02/05/24 1248 02/05/24 0524 02/04/24 0452 WBC 7.05 -- 6.04 7.21 HB 11.3* 12.0* 11.2* 10.9* HCT 35.8* -- 35.4* 34.5* PLT 461* -- 461* 465* NA 142 -- 140 138 K 3.7 -- 3.7 3.6* CHLOR 103 -- 102 100 CO2 29 -- 28 29 CREAT 1.28* -- 1.32* 1.27* BUN 11 -- 11 14 GLUC 101* -- 85 92 CA 9.5 -- 9.5 9.2 Micro: No updates. Awaiting susceptibilities. Imaging: No new imaging. Vitals: BP 133/81 Pulse 75 Temp (Src) 98.2 (Oral) Resp 18 Ht 6' 3" (1.91m) Wt 210 lb 1.6 oz (95.3kg) SpO2 96% BMI 26.26 kg/(m2). O2 Therapy: Room Air Exam: Looks well. No distress. Up and walking comfortably. Drain in right abdomen with small amount of fluid present. SIGNATURE: Kevin Corona III, MD PATIENT NAME: Terrie Allen DATE: February 06, 2024 TIME: 11:20 AM PAGER #: [phone] [facility] CELL: [phone] Normal [facility] Basic metabolic 2000 panelon 02-05-2024 Anion gap [Moles/Vol] 10 mmol/L Normal 9-18 [facility] Comment on above: Order Comment: Speci men Type: BLOOD SPECIMENOrdering Facility: [facility] Address: [address] [place] [address] Performed By: #### 2 4321-2 ####[facility] LABORATORYCLIA [id number] [place] [address] [place] Calcium [Mass/Vol] 9.5 mg/dL Normal 8.5-10.2 [facility] Comment on above: Order Comment: Speci men Type: BLOOD SPECIMENOrdering Facility: [facility] Address: [address] [place] [address] Performed By: #### 2 4321-2 ####[facility] LABORATORYCLIA [id number] [address] OF [place] Chloride [Moles/Vol] 102 mmol/L Normal 97-105 [facility] Comment on above: Order Comment: Speci men Type: BLOOD SPECIMENOrdering Facility: [facility] Address: [address] [place] [address] Performed By: #### 2 4321-2 ####[facility] LABORATORYCLIA [id number] [address] OF [place] CO2 [Moles/Vol] 28 mmol/L Normal 22-30 [facility] Comment on above: Order Comment: Speci men Type: BLOOD SPECIMENOrdering Facility: [facility] Address: [address] [place] [address] Performed By: #### 2 4321-2 ####[facility]SELAERCLIA [id number] [address] OF [facility] Creatinine [Mass/Vol] 1.32 mg/dL High 0.73-1.22 [facility] Comment on above: Order Comment: Speci men Type: BLOOD SPECIMENOrdering Facility: [facility] Address: [address] [place] [address] Performed By: #### 2 4321-2 ####[facility] LABORATORYCLIA [id number] [address] Creatinine and Glomerular filtration rate.predicted panel (S/P/Bld) 69 mL/min/1.73m??? Normal >=60 [facility] Comment on above: Order Comment: Speci men Type: BLOOD SPECIMENOrdering Facility: [facility] Address: [address] [place] [address] Result Comment: Tracy mated Glomerular Filtration Rate (eGFR) is calculated using the 2020 CKD-EPI creatinine equation. This equation utilizes serum creatinine, sex, and age as parameters. The creatinine assay has traceable calibration to isotope dilution-mass spectrometry. Refer to KDIGO guidelines for clinical interpretation. In patients with unstable renal function, e.g. those with acute kidney injury, the eGFR may not accurately reflect actual GFR. Performed By: #### 2 4321-2 ####[facility] LABORATORYCLIA [id number] [place] [address] [place] Glucose [Mass/Vol] 85 mg/dL Normal 74-99 [facility] Comment on above: Order Comment: [place] Type: BLOOD SPECIMENOrdering Facility: [facility] Address: [address] [place] [address] Result Comment: The [place] Diabetes Association (ADA) provides guidance for cutoff values for fasting glucose and random glucose. The ADA defines fasting as no caloric intake for at least 8 hours. Fasting plasma glucose results between 100 to 125 mg/dL indicate increased risk for diabetes (prediabetes). Fasting plasma glucose results greater than or equal to 126 mg/dL meet the criteria for diagnosis of diabetes. In the absence of unequivocal hyperglycemia, results should be confirmed by repeat testing. In a patient with classic symptoms of hyperglycemia or hyperglycemic crisis, random plasma glucose results greater than or equal to 200 mg/dL meet the criteria for diagnosis of diabetes. Reference: Standards of Medical Care in Diabetes 2016, [place] Diabetes Association. Diabetes Care. 2016.39(Suppl 1). Performed By: #### 2 4321-2 ####[facility] LABORATORYCLIA [id number] [place] [address] [place] Potassium [Moles/Vol] 3.7 mmol/L Normal 3.7-5.1 [facility] Comment on above: Order Comment: [place] Type: BLOOD SPECIMENOrdering Facility: [facility] Address: [address] [place] [address] Performed By: #### 2 4321-2 ####[facility] LABORATORYCLIA [id number] [place] [address] [place] Sodium [Moles/Vol] 140 mmol/L Normal 136-144 [facility] Comment on above: Order Comment: Walkeri men Type: BLOOD SPECIMENOrdering Facility: [facility] Address: [address] [place] [address] Performed By: #### 2 4321-2 ####[facility] LABORATORYCLIA [id number] [place] [address] [place] Urea nitrogen [Mass/Vol] 11 mg/dL Normal 9-24 [facility] Comment on above: Order Comment: Speci men Type: BLOOD SPECIMENOrdering Facility: [facility] Address: [address] [place] [address] Performed By: #### 2 4321-2 ####[facility] LABORATORYCLIA [id number] [address] STATES OF [facility] CBC panel Auto (Bld)on 02-04 Erythrocyte distribution width (RBC) [Ratio] 13.1 % Normal 11.5-15.0 [facility] Comment on above: Order Comment: Speci men Type: BLOOD SPECIMENOrdering Facility: [facility] Address: [address] [place] [address] Performed By: #### 6 462-6 #### [facility] CLIA [id number] [address] STATES OF [facility] Hematocrit (Bld) [Volume fraction] 35.4 % Low 39.0-51.0 [facility] Comment on above: Order Comment: Speci men Type: BLOOD SPECIMENOrdering Facility: [facility] Address: [address] [place] [address] Performed By: #### 6 462-6 #### [facility] CLIA [id number] [address] STATES OF [facility] Hemoglobin (Bld) [Mass/Vol] 11.2 g/dL Low 13.0-17.0 [facility] Comment on above: Order Comment: Speci men Type: BLOOD SPECIMENOrdering Facility: [facility] Address: [address] [place] [address] Performed By: #### 6 462-6 #### [employer] CLIA [id number] [address] [place] MCH (RBC) [Entitic mass] 28.0 pg Normal 26.0-34.0 [facility] Comment on above: Order Comment: Speci men Type: BLOOD SPECIMENOrdering Facility: [facility] Address: [address] [place] [address] Performed By: #### 6 462-6 #### [facility] CLIA [id number] [address] OF [facility] MCHC (RBC) [Mass/Vol] 31.6 g/dL Normal 30.5-36.0 [facility] Comment on above: Order Comment: Speci men Type: BLOOD SPECIMENOrdering Facility: [facility] Address: [address] [place] [address] Performed By: #### 6 462-6 #### [facility] CLIA [id number] [address] MCV (RBC) [Entitic vol] 88.5 fL Normal 80.0-100.0 [facility] Comment on above: Order Comment: Speci men Type: BLOOD SPECIMENOrdering Facility: [facility] Address: [address] [place] [address] Performed By: #### 6 462-6 #### [facility] CLIA [id number] [address] OF [place] Nucleated RBC (Bld) [#/Vol] 10*3/uL Normal <0.01 [facility] Comment on above: Order Comment: Speci men Type: BLOOD SPECIMENOrdering Facility: [facility] Address: [address] [place] [address] Performed By: #### 6 462-6 #### [facility] CLIA [id number] [address] [place] Platelet mean volume (Bld) [Entitic vol] 9.8 fL Normal 9.0-12.7 [facility] Comment on above: Order Comment: Speci men Type: BLOOD SPECIMENOrdering Facility: [facility] Address: [address] [place] [address] Performed By: #### 6 462-6 #### [facility] CLIA [id number] [address] OF [place] Platelets (Bld) [#/Vol] 461 10*3/uL High 150-400 [facility] Comment on above: Order Comment: Speci men Type: BLOOD SPECIMENOrdering Facility: [facility] Address: [address] [place] [address] Performed By: #### 6 462-6 #### [facility] CLIA [id number] [address] OF [facility] RBC (Bld) [#/Vol] 4.00 10*6/uL Low 4.20-6.00 [facility] Comment on above: Order Comment: Speci men Type: BLOOD SPECIMENOrdering Facility: [facility] Address: [address] [place] [address] Performed By: #### 6 462-6 #### [facility] CLIA [id number] [address] WBC (Bld) [#/Vol] 6.04 10*3/uL Normal 3.70-11.00 [facility] Comment on above: Order Comment: Speci men Type: BLOOD SPECIMENOrdering Facility: [facility] Address: [address] [place] [address] Performed By: #### 6 462-6 #### [facility] CLIA [id number] [address] CONSULT PROGon 02-05-2024 CONSULT PROG HNO ID: [id number] Author: KEVIN CORONA III, MD Service: Infectious Disease Author Type: Physician Type: Consult Progress Note Filed: 02/05/2024 13:25 Note Text: Assessment Complicated intra-abdominal infection. 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 Coli, pseudomonas when had abscess New organisms from most recent abscess culture with lactobacillus, C. Lusitaniae, S. Cerevisiae-> susceptibility of the latter pending Last IR drain was on 01/30 Nausea, lightheadedness- occurred after he got up to bathroom this morning but has persisted. After I saw him had nurse check orthostats which were normal. Glucose normal at 85. Hemoglobin ok- was worried if could be anemic related to #3. Yesterday we had thought this could be micafungin related but has persisted. Doubt zosyn related. Doesn't seem to correlate with the voriconazole. Considered if could be related to zofran or tramadol but he's been getting those even before transfer here so doubt these would be causing issues at this point. Could just be related to overall illness with #1. Mass left thigh- ?hematoma. Plan IV therapy x 1 month- zosyn for now then after drain removed can narrow to just cover actinomyces, then to amoxicillin x 6 months Voriconazole- wrote rx to our pharmacy for 2 weeks. Treat til 4-7 days after drain removed. Check US left thigh. Communicated with MALATHI Fu re: plan Subjective Patient feeling poorly. Says it was after he got up to go to the bathroom this morning. Nauseated, lightheaded. Has persisted for past couple of hours. Broke out into a cold sweat. No fevers or chills. Abdominal pain controlled. Mild visual issues with voriconazole last night- flashing lights and halo around lights. Advised him that this may happen for next few days but typically dissipates after first several days. Objective Data: WBC 5.04. hgb 12 (was 11.2 on this morning CBC). Plt high 461. Cr 1.32 (stable) Micro: No updates. Awaiting susceptibilities. Imaging: No new imaging. Vitals: BP 114/73 Pulse 66 Temp (Src) 98.3 (Oral) Resp 16 Ht 6' 3" (1.91m) Wt 210 lb 1.6 oz (95.3kg) SpO2 95% BMI 26.26 kg/(m2). O2 Therapy: Room Air Exam: Lying in bed. Looks ill but not toxic, not diaphoretic. Oropharynx clear and moist Heart RRR without murmur Lungs CTAB Abdomen- wound currently with wound vac in place. Reviewed wound care pictures, documentation. 4.2 x 1.1cm wound with 2.9cm depth. Looks like fascia exposed at base of wound. Left arm PICC without redness. SIGNATURE: Kevin Corona III, MD PATIENT NAME: Terrie Allen DATE: February 05, 2024 TIME: 11:47 AM PAGER #: [phone] [facility] CELL: [phone] Normal [facility] CONSULT PROG HNO ID: [id number] Author: EMRE PAGAN APRN.BEAUTY SHOP MANAGER Service: Wound/Ostomy Author Type: Nurse Practitioner Type: Consult Progress Note Filed: 02/05/2024 12:37 Note Text: WOUND CARE SERVICE PROGRESS HAND DEICER ELEMENT WINDER NOTE SERVICE DATE: 02/05/2024 SERVICE TIME: 09:22 am REASON FOR CONSULT: Consultation requested by Diaan Foster MD for an opinion regarding abdomen wound - wound vac. My final recommendations will be communicated back to the requesting physician by way of shared Medical record or letter to requesting physician via US mail. CHIEF COMPLAINT: abdominal wound Subjective HISTORY OF PRESENT ILLNESS: Mr. Allen is a 43 year old male who is seen today by Wound care to change NPWT wound vac to abdominal wound. PERTINENT REVIEW OF SYSTEMS: GENERAL: denies fever or chills PAIN ASSESSMENT: admits to some pain to abdomen with dressing change SKIN: admits to wound on abdomen RESPIRATORY: denies SOB or cough GI/: admits to some nausea but denies vomiting PAST MEDICAL HISTORY Diagnosis Date Diarrhea 12/18/05 Irritable bowel syndrome Irritable bowel PAST SURGICAL HISTORY Procedure Laterality Date PAST SURGICAL HISTORY OF left clavicle repair with plate,2004 PICC LINE INSERTION (PICC TEAM) ([place]) 02/03/2024 SIGMOIDOSCOPY FLX DX W/COLLJ SPEC BR/WA IF PFRMD 12/18/05 Social History Tobacco Use Smoking status: Never Substance Use Topics Alcohol use: No FAMILY HISTORY Problem Relation Age of Onset Diabetes Father Diabetes Maternal Grandfather Cancer Paternal Grandmother Stroke Paternal Grandfather MEDICATIONS: Current Facility-Administered Medications Medication Dose Route Frequency acetaminophen 975 mg tab(s) (TYLENOL) 975 mg ORAL QID NaCl 0.9% iv flush bag 20 mL INTRAVENOUS PRN ondansetron 4 mg tab(s) (ZOFRAN) 4 mg ORAL q 6 H PRN Or ondansetron (PF) 4 mg injection (ZOFRAN) 4 mg INTRAVENOUS q 6 H PRN piperacillin-tazobactam iv piggyback 3.375 g in dextrose (iso-osmotic) 50 mL (ZOSYN) 3.375 g INTRAVENOUS q 6 H sodium chloride 0.9 % (flush) 5 mL (BD POSIFLUSH) 5 mL OTHER DAILY traMADol 50-100 mg tab(s) (ULTRAM) 50-100 mg ORAL q 6 H PRN lidocaine 4 % 1 Patch (SALONPAS) 1 Patch TRANSDERMAL DAILY And lidocaine patch - REMOVE OTHER AT BEDTIME And lidocaine - VERIFY PATCH OTHER q 8 H baclofen 10 mg tab(s) 10 mg ORAL BID simethicone, chewable 80 mg tab(s) (MYLICON) 80 mg ORAL QID PRN iv contrast (radiology procedure) INTRAVENOUS DIRECTED PRN iv contrast (radiology procedure) INTRAVENOUS DIRECTED PRN HYDROmorphone (PF) 0.5 mg injection (DILAUDID) 0.5 mg INTRAVENOUS q 4 H PRN senna-docusate 8.6-50 mg 1 tablet (SENNA-S) 1 tablet ORAL BID polyethylene glycol 3350 17 g packet 17 g ORAL DAILY apixaban 10 mg tab(s) (ELIQUIS) 10 mg ORAL BID Followed by [START ON 02/11/2024] apixaban 5 mg tab(s) (ELIQUIS) 5 mg ORAL BID voriconazole 200 mg in D5W 100 mL (VFEND) 200 mg INTRAVENOUS q 12 H ALLERGIES No Known Allergies Objective PHYSICAL EXAM: BP 114/73 Pulse 66 Temp 36.8 ?C (98.3 ?F) (Oral) Resp 16 Ht 190.5 cm (6' 3") Wt 95.3 kg (210 lb 1.6 oz) SpO2 95% BMI 26.26 kg/m? General appearance: alert and oriented male lying in hospital bed Respiratory: no SOB noted Extremities: bilateral heels intact Integumentary: open abdominal wound DATA Labs: WBC 6.04 Presenting wound information: Wound 01/31/24 0552 Surgical Wound (dehisced, infected, complication) Abdomen Lower;Medial (Active) Assessments 02/05/2024 9:26 AM Wound Image Site Assessment Red Manisha-Wound Assessment Intact Shape oval Wound Length (cm) 4.2 cm Wound Width (cm) 1.1 cm Wound Surface Area (cm2) 4.62 cm2 Wound Depth (cm) 2.9 cm (undermines 9-12 o'clock = 2.5 cm) Wound Volume (cm3) 13.398 cm3 Wound Healing % 65 Closure Sutures Drainage Description Serosanguineous Drainage Amount Scant Odor None Manisha-Wound Treatment Skin Prep Treatments Cleansed Dressing Negative Pressure Dressing/Wound Vac Dressing Changed Changed Dressing Status Clean;Dry;Intact Active Orders Date Order Priority Status Authorizing Provider 02/05/24 1217 WOUND CARE (NURSING COMMUNICATION ONLY - NOT A CONSULT TO WOUND CARE) (SPECIFY) (DC,[place]), Surgical Wound (dehisced, infected, complication) Lower;Medial Abdomen Routine Active Emre Pagan APRN.CNP - Dressing type:: Other (comments) 01/31/24 1237 WOUND CARE CONSULT (DC,[place]) Routine Active Diana Foster MD - Wound present on admission to the hospital:: Yes - Location of Wound:: Abdomen - Wound being followed by a Clinician/LIP:: No - Clinician/LIP need Wound Care Team to recommend treatment Procedures (if applicable): NPWT: < 50 sq cm. Number of pieces of foam removed: 2. Number of pieces of foam used today: 2 Negative Pressure Wound Therapy Abdomen Lower;Medial (Active) Placement Date/Time: 02/03/24 0840 Location: Abdomen Wound Location Orientation: Lower;Medial Assessments 02/05/2024 9:26 AM Type of Lita (more content not included)... Normal [facility] Hgb Bld-mCncon 02-05-2024 Hemoglobin (Bld) [Mass/Vol] 12.0 g/dL Low 13.0-17.0 [facility] Comment on above: Order Comment: Speci men Type: BLOOD SPECIMENOrdering Facility: [facility] Address: [address] [place] [address] Performed By: #### 6 462-6 #### [facility] CLIA [id number] [address] OF [facility] NUTRITIONon 02-05-2024 NUTRITION HNO ID: [id number] Author: BRI MYLES RD Service: Nutrition Therapy Author Type: Registered Dietitian Type: Nutrition Filed: 02/05/2024 15:33 Note Text: NUTRITION THERAPY PROGRESS NOTE SERVICE DATE: 02/05/2024 SERVICE TIME: 12:16 pm Nutrition Assessment: Recommended Malnutrition Diagnosis: Moderate Protein-Calorie Malnutrition (01/31/24 1152 : Bri Myles RD) Estimated kilocalorie needs: 2325 - 2740 kcals Calorie Calculation Method: 25-30 kcals/kg Estimated protein needs (grams): 93 - 140 g Grams protein determined by: 1.0 - 1.5 g/kg Care Plan: Continue regular diet. Please document and encourage intakes at mealtimes. Continue current diet 2. Discontinue [place] supplements (patient having dysgeusia particularly with sweets) Supplements: (discontinue) Monitor and Evaluation: Meet greater than 75% of estimated needs Discharge Recommendations: Diet;Oral Supplements Diet: GI Soft or as per primary Oral Supplements: Energy dense oral nutrition supplements 1-2x per day as needed to maintain adequate intakes Interval History: Patient reports his appetite is fair but he is having increased dysgeusia, especially with sweets. He has tolerated savory foods such as hamburger well. Discussed protein sources and small, frequent meals to increase overall energy and protein intakes. Anthropometrics: Height: 190.5 cm (6' 3") Weight: 95.3 kg (210 lb 1.6 oz) Dosing Weight: 93 kg (205 lb 0.4 oz) Body mass index is 26.26 kg/m?. Intake History: Current Nutrition Intake: Less than 75% estimated energy needs Current Intake Over time: Greater than or equal to 5 days Diet Orders (From admission, onward) Start Ordered 01/31/24 1100 DIET REGULAR START NOW 01/31/24 1049 Stool Amount: (1x BM 02/01) MNT Billing: $ Reassessment: 1-15 minutes SIGNATURE: Bri Myles RD PATIENT NAME: Terrie Allen DATE: February 05, 2024 TIME: 3:28 PM Normal [facility] Basic metabolic 2000 panelon 02-04-2024 Anion gap [Moles/Vol] 9 mmol/L Normal 9-18 [facility] Comment on above: Order Comment: Speci men Type: BLOOD SPECIMENOrdering Facility: [facility] Address: [address] [place] [address] Performed By: #### 2 4321-2 ####[facility]CLIA [id number] [place] [address] [place] Calcium [Mass/Vol] 9.2 mg/dL Normal 8.5-10.2 [facility] Comment on above: Order Comment: Speci men Type: BLOOD SPECIMENOrdering Facility: [facility] Address: [address] [place] [address] Performed By: #### 2 4321-2 ####[facility]CLIA [id number] [address] [place] Chloride [Moles/Vol] 100 mmol/L Normal 97-105 [facility] Comment on above: Order Comment: Speci men Type: BLOOD SPECIMENOrdering Facility: [facility] Address: [address] [place] [address] Performed By: #### 2 4321-2 ####[facility]ORYCLIA [id number] [address] OF [facility] CO2 [Moles/Vol] 29 mmol/L Normal 22-30 [facility] Comment on above: Order Comment: Speci men Type: BLOOD SPECIMENOrdering Facility: [facility] Address: [address] [place] [address] Performed By: #### 2 4321-2 ####[facility]ORYCLIA [id number] [address] OF [facility] Creatinine [Mass/Vol] 1.27 mg/dL High 0.73-1.22 [facility] Comment on above: Order Comment: Speci men Type: BLOOD SPECIMENOrdering Facility: [facility] Address: [address] [place] [address] Performed By: #### 2 4321-2 ####[facility]ORYCLIA [id number] [address] Creatinine and Glomerular filtration rate.predicted panel (S/P/Bld) 72 mL/min/1.73m??? Normal >=60 [facility] Comment on above: Order Comment: Speci men Type: BLOOD SPECIMENOrdering Facility: [facility] Address: [address] [place] [address] Result Comment: Tracy mated Glomerular Filtration Rate (eGFR) is calculated using the 2020 CKD-EPI creatinine equation. This equation utilizes serum creatinine, sex, and age as parameters. The creatinine assay has traceable calibration to isotope dilution-mass spectrometry. Refer to KDIGO guidelines for clinical interpretation. In patients with unstable renal function, e.g. those with acute kidney injury, the eGFR may not accurately reflect actual GFR. Performed By: #### 2 4321-2 ####[facility]ORYCLIA [id number] [place] [address] [place] Glucose [Mass/Vol] 92 mg/dL Normal 74-99 [facility] Comment on above: Order Comment: Cait hill Type: BLOOD SPECIMENOrdering Facility: [facility] Address: [address] [place] [address] Result Comment: The [place] Diabetes [employer] (ADA) provides guidance for cutoff values for fasting glucose and random glucose. The ADA defines fasting as no caloric intake for at least 8 hours. Fasting plasma glucose results between 100 to 125 mg/dL indicate increased risk for diabetes (prediabetes). Fasting plasma glucose results greater than or equal to 126 mg/dL meet the criteria for diagnosis of diabetes. In the absence of unequivocal hyperglycemia, results should be confirmed by repeat testing. In a patient with classic symptoms of hyperglycemia or hyperglycemic crisis, random plasma glucose results greater than or equal to 200 mg/dL meet the criteria for diagnosis of diabetes. Reference: Standards of Medical Care in Diabetes 2016, [place] [employer]. Diabetes Care. 2016.39(Suppl 1). Performed By: #### 2 4321-2 ####[facility]ORYCLIA [id number] [place] [address] [place] Potassium [Moles/Vol] 3.6 mmol/L Low 3.7-5.1 [facility] Comment on above: Order Comment: Cait hill Type: BLOOD SPECIMENOrdering Facility: [facility] Address: [address] [place] [address] Performed By: #### 2 4321-2 ####[facility]ORYCLIA [id number] [place] [id number] [place] Sodium [Moles/Vol] 138 mmol/L Normal 136-144 [facility] Comment on above: Order Comment: Cait hill Type: BLOOD SPECIMENOrdering Facility: [facility] Address: [address] [place] [address] Performed By: #### 2 4321-2 ####[facility]ORYCLIA [id number] [address] [place] Urea nitrogen [Mass/Vol] 14 mg/dL Normal 9-24 [facility] Comment on above: Order Comment: Speci men Type: BLOOD SPECIMENOrdering Facility: [facility] Address: [address] [place] [address] Performed By: #### 2 4321-2 ####[facility]ORYCLIA [id number] [address] STATES OF [facility] CBC panel Auto (Bld)on 02-03 Erythrocyte distribution width (RBC) [Ratio] 13.2 % Normal 11.5-15.0 [facility] Comment on above: Order Comment: Speci men Type: BLOOD SPECIMENOrdering Facility: [facility] Address: [address] [place] [address] Performed By: #### 5 8410-2 ####[facility]ORYCLIA [id number] [address] [place] [facility] Hematocrit (Bld) [Volume fraction] 34.5 % Low 39.0-51.0 [facility] Comment on above: Order Comment: Speci men Type: BLOOD SPECIMENOrdering Facility: [facility] Address: [address] [place] [address] Performed By: #### 5 8410-2 ####[facility]ORYCLIA [id number] [address] STATES OF [facility] Hemoglobin (Bld) [Mass/Vol] 10.9 g/dL Low 13.0-17.0 [facility] Comment on above: Order Comment: Speci men Type: BLOOD SPECIMENOrdering Facility: [facility] Address: [address] [place] [address] Performed By: #### 5 8410-2 ####[facility]ORYCLIA [id number] [address] [place] [facility] MCH (RBC) [Entitic mass] 28.2 pg Normal 26.0-34.0 [facility] Comment on above: Order Comment: Speci men Type: BLOOD SPECIMENOrdering Facility: [facility] Address: [address] [place] [address] Performed By: #### 5 8410-2 ####[facility]ORYCLIA [id number] [address] [place] [facility] MCHC (RBC) [Mass/Vol] 31.6 g/dL Normal 30.5-36.0 [facility] Comment on above: Order Comment: Speci men Type: BLOOD SPECIMENOrdering Facility: [facility] Address: [address] [place] [address] Performed By: #### 5 8410-2 ####[facility]ORYCLIA [id number] [address] [place] MCV (RBC) [Entitic vol] 89.4 fL Normal 80.0-100.0 [facility] Comment on above: Order Comment: Speci men Type: BLOOD SPECIMENOrdering Facility: [facility] Address: [address] [place] [address] Performed By: #### 5 8410-2 ####[facility]ORYCLIA [id number] [address] STATES OF [facility] Nucleated RBC (Bld) [#/Vol] 10*3/uL Normal <0.01 [facility] Comment on above: Order Comment: Speci men Type: BLOOD SPECIMENOrdering Facility: [facility] Address: [address] [place] [address] Performed By: #### 5 8410-2 ####[facility]ORYCLIA [id number] [address] [place] Platelet mean volume (Bld) [Entitic vol] 9.9 fL Normal 9.0-12.7 [facility] Comment on above: Order Comment: Speci men Type: BLOOD SPECIMENOrdering Facility: [facility] Address: [address] [place] [address] Performed By: #### 5 8410-2 ####[facility]ORYCLIA [id number] [address] [place] Platelets (Bld) [#/Vol] 465 10*3/uL High 150-400 [facility] Comment on above: Order Comment: Speci men Type: BLOOD SPECIMENOrdering Facility: [facility] Address: [address] [place] [address] Performed By: #### 5 8410-2 ####[facility]ORYCLIA [id number] [address] STATES OF [facility] RBC (Bld) [#/Vol] 3.86 10*6/uL Low 4.20-6.00 [facility] Comment on above: Order Comment: Speci men Type: BLOOD SPECIMENOrdering Facility: [facility] Address: [address] [place] [address] Performed By: #### 5 8410-2 ####[facility]ORYCLIA [id number] [address] WBC (Bld) [#/Vol] 7.21 10*3/uL Normal 3.70-11.00 [facility] Comment on above: Order Comment: Speci men Type: BLOOD SPECIMENOrdering Facility: [facility] Address: [address] [place] [address] Performed By: #### 5 8410-2 ####[facility]ATORYCLIA [id number] [address] CONSULT PROGon 02-04-2024 CONSULT PROG HNO ID: [id number] Author: KEVIN CORONA III, MD Service: Infectious Disease Author Type: Physician Type: Consult Progress Note Filed: 02/04/2024 11:26 Note Text: Assessment Prior intussusception related to inflammatory mass Abdominal abscesses secondary to this. with mixed anaerobes, enterococcus, e. 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 Counseled him on possible visual side effects which should dissipate in next several days if they occur. Likely two week course. To fluconazole if susceptible. Subjective Patient concerned he is having a reaction to the micafungin. Shortly after starting it developed nausea and feels lightheaded. Says vision seems to be a little delayed when he is moving his head. Pain controlled. Objective Data: Recent Labs 02/04/24 0452 02/03/24 0426 02/02/24 0337 WBC 7.21 8.75 13.22* HB 10.9* 11.3* 12.1* HCT 34.5* 35.6* 38.5* PLT 465* 474* 574* NA 138 137 138 K 3.6* 3.9 4.5 CHLOR 100 101 99 CO2 29 27 26 CREAT 1.27* 1.37* 1.35* BUN 14 15 15 GLUC 92 84 95 CA 9.2 9.5 10.0 Micro: See above Imagin/6 CT reviewed. Vitals: BP 123/73 Pulse 67 Temp (Src) 97.9 (Oral) Resp 16 Ht 6' 3" (1.91m) Wt 210 lb 1.6 oz (95.3kg) SpO2 94% BMI 26.26 kg/(m2). O2 Therapy: Room Air Exam: Lying in bed. Skin turgor good Mucus membranes moist Capillary refill <1 second. Heart RRR Lungs CTAB Abdomen- wound vac in place. SIGNATURE: Kevin Corona III, MD PATIENT NAME: Terrie Allen DATE: February 04, 2024 TIME: 10:50 AM PAGER #: [phone] [facility] CELL: [phone] Normal [facility] NURSING PROGon 02-04-2024 NURSING PROG HNO ID: [id number] Author: FREDA LEYVA RN Service: ? Author Type: Registered Nurse Type: Nursing Progress Note Filed: 02/04/2024 09:38 Note Text: Pt expresses concern that he won't be able to tolerate micafungin at home. He states that ever since he got his first dose yesterday 02/03/24, he has had loss of appetite, nausea, and feels like "everything is slower" since has taken the medication. Message sent to Dr. Corona to discuss. Normal [facility] PT EDon 02-04-2024 PT ED HNO ID: [id number] Author: BARRERA SOARES RPh Service: Pharmacy Author Type: Pharmacist Type: Patient Education Filed: 02/04/2024 18:11 Note Text: PHARMACY ANTICOAGULATION EDUCATION Patient Name: Terrie Allen Account #: Data Unavailable Admission Date: 01/31/2024 3:39 AM Date of Contact: February 04, 2024 Time of Contact: 6:08 PM Patient anticipated to be discharged on Apixaban as oral anticoagulation therapy. Test claim ran for [employer] - $0 /month Anticoagulant history: Patient is new to anticoagulation therapy Indication for oral anticoagulation: SMV thrombus Anticoagulant education status: Patient received full anticoagulation education Reason for taking anticoagulation How this anticoagulant works When to take medication and what to do if a dose is missed Drug interactions (Rx, OTC, herbal) and importance of notifying the doctor with any changes Do not take or discontinue any medication or over the counter medication except on the advice of the physician or pharmacist Signs/symptoms of bleeding and what to do if they occur Precautionary measures to decrease trauma/bleeding Signs/symptoms of thrombosis and what to do if they occur Need to limit or avoid alcohol consumption Carrying identification Importance of notifying healthcare provider when hospitalizations occur and when another healthcare provider has asked them to stop/hold anticoagulation medication before any procedure Importance of notifying all healthcare providers they are taking an anticoagulant Use of control measures, if applicable The importance of taking anticoagulation medication as instructed and the potential ramifications of non-compliance were explained to the patient The patient was provided supplemental material which includes the following topics: compliance Issues, follow-up with physician, follow-up monitoring, potential adverse drug reactions, and interactions. Barrera Soares RPh Normal [facility] Basic metabolic 2000 panelon 02-03-2024 Anion gap [Moles/Vol] 9 mmol/L Normal 9-18 [facility] Comment on above: Order Comment: Speci men Type: BLOOD SPECIMENOrdering Facility: [facility] Address: [address] [place] [address] [place] [address] Performed By: #### 2 4321-2 ####[facility]ATORYCLIA [id number] [place] [address] [place] Calcium [Mass/Vol] 9.5 mg/dL Normal 8.5-10.2 [facility] Comment on above: Order Comment: Speci men Type: BLOOD SPECIMENOrdering Facility: [facility] Address: [address] [place] [address] Performed By: #### 2 4321-2 ####[facility]ATORYCLIA [id number] [place] [address] [place] Chloride [Moles/Vol] 101 mmol/L Normal 97-105 [facility] Comment on above: Order Comment: Speci men Type: BLOOD SPECIMENOrdering Facility: [facility] Address: [address] [place] [address] Performed By: #### 2 4321-2 ####[facility]ORYCLIA [id number] [address] [place] CO2 [Moles/Vol] 27 mmol/L Normal 22-30 [facility] Comment on above: Order Comment: Speci men Type: BLOOD SPECIMENOrdering Facility: [facility] Address: [address] [place] [address] Performed By: #### 2 4321-2 ####[facility]ORYCLIA [id number] [address] [place] Creatinine [Mass/Vol] 1.37 mg/dL High 0.73-1.22 [facility] Comment on above: Order Comment: Speci men Type: BLOOD SPECIMENOrdering Facility: [facility] Address: [address] [place] [address] Performed By: #### 2 4321-2 ####[facility]ATORYCLIA [id number] [address] Creatinine and Glomerular filtration rate.predicted panel (S/P/Bld) 66 mL/min/1.73m??? Normal >=60 [facility] Comment on above: Order Comment: Speci men Type: BLOOD SPECIMENOrdering Facility: [facility] Address: [address] [place] [address] Result Comment: Tracy mated Glomerular Filtration Rate (eGFR) is calculated using the 2020 CKD-EPI creatinine equation. This equation utilizes serum creatinine, sex, and age as parameters. The creatinine assay has traceable calibration to isotope dilution-mass spectrometry. Refer to KDIGO guidelines for clinical interpretation. In patients with unstable renal function, e.g. those with acute kidney injury, the eGFR may not accurately reflect actual GFR. Performed By: #### 2 4321-2 ####[facility]ORYCLIA [id number] [place] [address] [place] Glucose [Mass/Vol] 84 mg/dL Normal 74-99 [facility] Comment on above: Order Comment: Cait [place] Type: BLOOD SPECIMENOrdering Facility: [facility] Address: [address] [place] [address] Result Comment: The [place] Diabetes Association (ADA) provides guidance for cutoff values for fasting glucose and random glucose. The ADA defines fasting as no caloric intake for at least 8 hours. Fasting plasma glucose results between 100 to 125 mg/dL indicate increased risk for diabetes (prediabetes). Fasting plasma glucose results greater than or equal to 126 mg/dL meet the criteria for diagnosis of diabetes. In the absence of unequivocal hyperglycemia, results should be confirmed by repeat testing. In a patient with classic symptoms of hyperglycemia or hyperglycemic crisis, random plasma glucose results greater than or equal to 200 mg/dL meet the criteria for diagnosis of diabetes. Reference: Standards of Medical Care in Diabetes 2016, [place] [employer]. Diabetes Care. 2016.39(Suppl 1). Performed By: #### 2 4321-2 ####[facility]ATORYCLIA [id number] [place] [address] [place] Potassium [Moles/Vol] 3.9 mmol/L Normal 3.7-5.1 [facility] Comment on above: Order Comment: Cait sergio Type: BLOOD SPECIMENOrdering Facility: [facility] Address: [address] [place] [id number] Performed By: #### 2 4321-2 ####[facility]ATORYCLIA [id number] [address] STATES OF [facility] Sodium [Moles/Vol] 137 mmol/L Normal 136-144 [facility] Comment on above: Order Comment: Speci men Type: BLOOD SPECIMENOrdering Facility: [facility] Address: [address] [place] [address] Performed By: #### 2 4321-2 ####[facility]ORYCLIA [id number] [address] [place] Urea nitrogen [Mass/Vol] 15 mg/dL Normal 9-24 [facility] Comment on above: Order Comment: Speci men Type: BLOOD SPECIMENOrdering Facility: [facility] Address: [address] [place] [address] Performed By: #### 2 4321-2 ####[facility] LABORATORYCLIA [id number] [address] [place] CBC panel Auto (Bld)on 02-02 Erythrocyte distribution width (RBC) [Ratio] 13.3 % Normal 11.5-15.0 [facility] Comment on above: Order Comment: Speci men Type: BLOOD SPECIMENOrdering Facility: [facility] Address: [address] [place] [address] Performed By: #### 5 8410-2 ####[facility] LABORATORYCLIA [id number] [address] [place] Hematocrit (Bld) [Volume fraction] 35.6 % Low 39.0-51.0 [facility] Comment on above: Order Comment: Speci men Type: BLOOD SPECIMENOrdering Facility: [facility] Address: [address] [place] [address] Performed By: #### 5 8410-2 ####[facility] LABORATORYCLIA [id number] [address] [place] Hemoglobin (Bld) [Mass/Vol] 11.3 g/dL Low 13.0-17.0 [facility] Comment on above: Order Comment: Speci men Type: BLOOD SPECIMENOrdering Facility: [facility] Address: [address] [place] [address] Performed By: #### 5 8410-2 ####[facility] LABORATORYCLIA [id number] [address] MCH (RBC) [Entitic mass] 28.0 pg Normal 26.0-34.0 [facility] Comment on above: Order Comment: Speci men Type: BLOOD SPECIMENOrdering Facility: [facility] Address: [address] [place] [address] Performed By: #### 5 8410-2 ####[facility]ORATORYCLIA [id number] [address] MCHC (RBC) [Mass/Vol] 31.7 g/dL Normal 30.5-36.0 [facility] Comment on above: Order Comment: Speci men Type: BLOOD SPECIMENOrdering Facility: [facility] Address: [address] [place] [address] Performed By: #### 5 8410-2 ####[facility] LABORATORYCLIA [id number] [address] MCV (RBC) [Entitic vol] 88.3 fL Normal 80.0-100.0 [facility] Comment on above: Order Comment: Speci men Type: BLOOD SPECIMENOrdering Facility: [facility] Address: [address] [place] [address] Performed By: #### 5 8410-2 ####[facility]ATORYCLIA [id number] [address] Nucleated RBC (Bld) [#/Vol] 10*3/uL Normal <0.01 [facility] Comment on above: Order Comment: Speci men Type: BLOOD SPECIMENOrdering Facility: [facility] Address: [address] [place] [address] Performed By: #### 5 8410-2 ####[facility]ATORYCLIA [id number] [address] Platelet mean volume (Bld) [Entitic vol] 9.6 fL Normal 9.0-12.7 [facility] Comment on above: Order Comment: Speci men Type: BLOOD SPECIMENOrdering Facility: [facility] Address: [address] [place] [address] Performed By: #### 5 8410-2 ####[facility]ORATORYCLIA [id number] [address] OF [facility] Platelets (Bld) [#/Vol] 474 10*3/uL High 150-400 [facility] Comment on above: Order Comment: Speci men Type: BLOOD SPECIMENOrdering Facility: [facility] Address: [address] [place] [address] Performed By: #### 5 8410-2 ####[facility]ATORYCLIA [id number] [address] OF [facility] RBC (Bld) [#/Vol] 4.03 10*6/uL Low 4.20-6.00 [facility] Comment on above: Order Comment: Speci men Type: BLOOD SPECIMENOrdering Facility: [facility] Address: [address] [place] [address] Performed By: #### 5 8410-2 ####[facility]ATORYCLIA [id number] [address] WBC (Bld) [#/Vol] 8.75 10*3/uL Normal 3.70-11.00 [facility] Comment on above: Order Comment: Speci men Type: BLOOD SPECIMENOrdering Facility: [facility] Address: [address] [place] [address] Performed By: #### 5 8410-2 ####[facility]ORATORYCLIA [id number] [address] CONSULT PROGon 02-03-2024 CONSULT PROG HNO ID: [id number] Author: KEVIN CORONA III, MD Service: Infectious Disease Author Type: Physician Type: Consult Progress Note Filed: 02/03/2024 12:47 Note Text: Assessment Prior intussusception related to inflammatory mass Abdominal abscesses secondary to this. with mixed anaerobes, enterococcus, e. 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 S/p IR guided drain placement of additional abscess on 01/30- growing lactobacillus rhamnosus, Yadi lusitaniae (should be fluconazole susceptible) and Saccharomyces cerevisiae (expect fluconazole resistant, echinocandin susceptible; vori would be an option) Plan Add micafungin for now Will ask for the lab for susceptibility on the S. Cerevisiae. Continue zosyn Final plan next 24 hours. Treat the actinomyces with IV for a month then to oral for another six months. Subjective Feeling ok. Abdominal pain is less than previously. No fevers or chills. Tolerating IV therapy well. Addendum at 12:46 PM- I asked he and his if he had received any probiotics since 2 of the 3 organisms currently are common in probiotics. She called [facility] and confirmed he did not receive any probiotics there. Objective Data: Recent Labs 02/03/24 0426 02/02/24 0337 02/01/24 0923 02/01/24 0016 WBC 8.75 13.22* -- 13.29* HB 11.3* 12.1* -- 12.3* HCT 35.6* 38.5* -- 38.6* PLT 474* 574* -- 577* NA 137 138 -- 134* K 3.9 4.5 -- 4.0 CHLOR 101 99 -- 98 CO2 27 26 -- 27 CREAT 1.37* 1.35* -- 1.45* P -- -- 3.8 -- BUN 15 15 -- 18 GLUC 84 95 -- 100* MG -- -- 2.1 -- CA 9.5 10.0 -- 9.4 Micro: See above Imagin/6 CT reviewed. Vitals: BP 124/68 Pulse 74 Temp (Src) 97.9 (Oral) Resp 18 Ht 6' 3" (1.91m) Wt 213 lb 10 oz (96.9kg) SpO2 95% BMI 26.70 kg/(m2). O2 Therapy: Room Air Exam: Lying in bed. No distress. Abdomen with wound vac in place. SIGNATURE: Kevin Corona III, MD PATIENT NAME: Terrie Allen DATE: February 03, 2024 TIME: 11:42 AM PAGER #: [phone] [facility] CELL: [phone] Normal [facility] CONSULT PROG HNO ID: [id number] Author: ДМИТРИЙ OCAMPO APRN.BEAUTY SHOP MANAGER Service: Wound/Ostomy Author Type: Nurse Practitioner Type: Consult Progress Note Filed: 02/03/2024 11:09 Note Text: WOUND CARE SERVICE PROGRESS HAND DEICER ELEMENT WINDER NOTE SERVICE DATE: 02/03/2024 SERVICE TIME: 838 REASON FOR CONSULT: Consultation requested by Diana Foster MD for an opinion regarding abdominal wound. My final recommendations will be communicated back to the requesting physician by way of shared Medical record or letter to requesting physician via US mail. CHIEF COMPLAINT: abdominal wound. Subjective HISTORY OF PRESENT ILLNESS: Mr. Allen is a 43 year old male who is seen today with Yasmine Lemos, Wound/sporting goods salesperson, and wound care asked to evaluate for NPWT wound vac placement. PERTINENT REVIEW OF SYSTEMS: GENERAL: denies fever PAIN ASSESSMENT: denies SKIN: abdominal wound RESPIRATORY: denies SOB GI/: endorses nausea PAST MEDICAL HISTORY Diagnosis Date Diarrhea 12/18/05 Irritable bowel syndrome Irritable bowel PAST SURGICAL HISTORY Procedure Laterality Date PAST SURGICAL HISTORY OF left clavicle repair with plate,2004 PICC LINE INSERTION (PICC TEAM) ([place]) 02/03/2024 SIGMOIDOSCOPY FLX DX W/COLLJ SPEC BR/WA IF PFRMD 12/18/05 Social History Tobacco Use Smoking status: Never Substance Use Topics Alcohol use: No FAMILY HISTORY Problem Relation Age of Onset Diabetes Father Diabetes Maternal Grandfather Cancer Paternal Grandmother Stroke Paternal Grandfather MEDICATIONS: Current Facility-Administered Medications Medication Dose Route Frequency acetaminophen 975 mg tab(s) (TYLENOL) 975 mg ORAL QID NaCl 0.9% iv flush bag 20 mL INTRAVENOUS PRN ondansetron 4 mg tab(s) (ZOFRAN) 4 mg ORAL q 6 H PRN Or ondansetron (PF) 4 mg injection (ZOFRAN) 4 mg INTRAVENOUS q 6 H PRN piperacillin-tazobactam iv piggyback 3.375 g in dextrose (iso-osmotic) 50 mL (ZOSYN) 3.375 g INTRAVENOUS q 6 H sodium chloride 0.9 % (flush) 5 mL (BD POSIFLUSH) 5 mL OTHER DAILY traMADol 50-100 mg tab(s) (ULTRAM) 50-100 mg ORAL q 6 H PRN enoxaparin 90 mg injection (LOVENOX) 1 mg/kg/dose SUBCUTANEOUS q 12 HR lidocaine 4 % 1 Patch (SALONPAS) 1 Patch TRANSDERMAL DAILY And lidocaine patch - REMOVE OTHER AT BEDTIME And lidocaine - VERIFY PATCH OTHER q 8 H baclofen 10 mg tab(s) 10 mg ORAL BID simethicone, chewable 80 mg tab(s) (MYLICON) 80 mg ORAL QID PRN iv contrast (radiology procedure) INTRAVENOUS DIRECTED PRN iv contrast (radiology procedure) INTRAVENOUS DIRECTED PRN HYDROmorphone (PF) 0.5 mg injection (DILAUDID) 0.5 mg INTRAVENOUS q 4 H PRN senna-docusate 8.6-50 mg 1 tablet (SENNA-S) 1 tablet ORAL BID polyethylene glycol 3350 17 g packet 17 g ORAL DAILY ALLERGIES No Known Allergies Objective PHYSICAL EXAM: BP 124/68 Pulse 74 Temp 36.6 ?C (97.9 ?F) (Oral) Resp 18 Ht 190.5 cm (6' 3") Wt 96.9 kg (213 lb 10 oz) SpO2 95% BMI 26.70 kg/m? General appearance: A/O male resting in bed, appears anxious, but pleasant and cooperative. Respiratory: even and unlabored. Cardiovascular: pedal pulses palpable bilaterally. Extremities: heels intact. Integumentary: abdominal wound. DATA Labs: platelet 474 Presenting wound information: Wound 01/31/24 0552 Surgical Wound (dehisced, infected, complication) Abdomen Lower;Medial (Active) Assessments 02/03/2024 8:40 AM Wound Image Site Assessment Red;Granulation;White;Fib rinous Manisha-Wound Assessment Intact Shape irregular Wound Length (cm) 4.5 cm Wound Width (cm) 2 cm Wound Surface Area (cm2) 9 cm2 Wound Depth (cm) 2.5 cm Wound Volume (cm3) 22.5 cm3 Wound Healing % 41 Drainage Description Serosanguineous Drainage Amount Scant Odor None Manisha-Wound Treatment Skin Prep Treatments Cleansed Dressing Negative Pressure Dressing/Wound Vac Dressing Changed Changed Dressing Status Clean;Dry;Intact Active Orders Date Order Priority Status Authorizing Provider 01/31/24 6918 WOUND CARE CONSULT ([place], [place]) Routine Active Diana Foster MD - Wound present on admission to the hospital:: Yes - Location of Wound:: Abdomen - Wound being followed by a Clinician/LIP:: No - Clinician/LIP need Wound Care Team to recommend treatment Procedures (if applicable): NPWT:Applied. Number of pieces of foam removed: 0. Number of pieces of foam used today: 2 Time for Procedure: 15 minutes Wound Care Plan: Wound care in to re-evaluate abdominal wound for vac. Wound with red granulation tissue, no odor detected, no purulent drainage noted. NPWT wound vac applied using 1 white foam and 1 black foam at 150 mmHg. Pt tolerated well. Discussed with patient and family, all questions answered. Orders Placed This Encounter WOUND VAC ([place], [place]), Order Comments: Wound vac- Change cannister once a week or as needed when full. IF wound vac malfunctions, AND bedside RN is unable to correct, call wound care at #[phone] or [facility](# is on side of vac.)IF still unable to correct and wo (more content not included)... Normal [facility] PT EDon 02-03-2024 PT ED HNO ID: [id number] Author: WILNER BASSETT RN Service: PICC Team Author Type: Registered Nurse Type: Patient Education Filed: 02/03/2024 09:16 Note Text: PATIENT EDUCATION VASCULAR ACCESS TEAM TOPIC: Peripherally Inserted Central Catheter READINESS TO LEARN COGNITIVE ABILITY: Alert and oriented MOTIVATION TO LEARN: Interested FAMILY SUPPORT: High - Very involved in pt care INSTRUCTION PROVIDED TO: Patient and family member PATIENT LEARNS BEST BY: Written Instruction - Hand-outs Verbal Instruction FACTORS AFFECTING LEARNING:None PHYSICAL LIMITATIONS AFFECTING LEARNING: None LEARNING RESPONSE METHOD OF INSTRUCTION: Written instruction - handouts Verbal instruction PATIENT / FAMILY RESPONSE: Verbalizes understanding of pre-procedure instructions Verbalizes understanding of post-procedure instructions FOLLOW-UP PLAN: Complete - No need for follow-up SUPPLEMENTAL MATERIAL: PICC Line brochureSEE PATIENT EDUCATION SECTION OF THE EMR [facility] Basic metabolic 2000 panelon 02-02-2024 Anion gap [Moles/Vol] 13 mmol/L Normal 9-18 [facility] Comment on above: Order Comment: Speci men Type: BLOOD SPECIMENOrdering Facility: [facility] Address: [address] [place] [address] Performed By: #### 2 4321-2 ####[facility] LABORATORYCLIA [id number] [place] [address] [place] Calcium [Mass/Vol] 10.0 mg/dL Normal 8.5-10.2 [facility] Comment on above: Order Comment: Speci men Type: BLOOD SPECIMENOrdering Facility: [facility] Address: [address] [place] [address] Performed By: #### 2 4321-2 ####[facility] LABORATORYCLIA [id number] [place] [address] [place] Chloride [Moles/Vol] 99 mmol/L Normal 97-105 [facility] Comment on above: Order Comment: Speci men Type: BLOOD SPECIMENOrdering Facility: [facility] Address: [address] [place] [address] Performed By: #### 2 4321-2 ####[facility] LABORATORYCLIA [id number] [address] [place] CO2 [Moles/Vol] 26 mmol/L Normal 22-30 [facility] Comment on above: Order Comment: Speci men Type: BLOOD SPECIMENOrdering Facility: [facility] Address: [address] [place] [address] Performed By: #### 2 4321-2 ####[facility] LABORATORYCLIA [id number] [place] [address] [place] Creatinine [Mass/Vol] 1.35 mg/dL High 0.73-1.22 [facility] Comment on above: Order Comment: Speci men Type: BLOOD SPECIMENOrdering Facility: [facility] Address: [address] [place] [address] Performed By: #### 2 4321-2 ####[facility] LABORATORYCLIA [id number] [address] [place] Creatinine and Glomerular filtration rate.predicted panel (S/P/Bld) 67 mL/min/1.73m??? Normal >=60 [facility] Comment on above: Order Comment: [place]ait [place] Type: BLOOD SPECIMENOrdering Facility: [facility] Address: [address] [place] [address] Result Comment: Tracy mated Glomerular Filtration Rate (eGFR) is calculated using the 2020 CKD-EPI creatinine equation. This equation utilizes serum creatinine, sex, and age as parameters. The creatinine assay has traceable calibration to isotope dilution-mass spectrometry. Refer to KDIGO guidelines for clinical interpretation. In patients with unstable renal function, e.g. those with acute kidney injury, the eGFR may not accurately reflect actual GFR. Performed By: #### 2 4321-2 ####[facility]ORATORYCLIA [id number] [place] [address] [place] Glucose [Mass/Vol] 95 mg/dL Normal 74-99 [facility] Comment on above: Order Comment: [place] Type: BLOOD SPECIMENOrdering Facility: [facility] Address: [address] [place] [address] Result Comment: The [place] Diabetes Association (ADA) provides guidance for cutoff values for fasting glucose and random glucose. The ADA defines fasting as no caloric intake for at least 8 hours. Fasting plasma glucose results between 100 to 125 mg/dL indicate increased risk for diabetes (prediabetes). Fasting plasma glucose results greater than or equal to 126 mg/dL meet the criteria for diagnosis of diabetes. In the absence of unequivocal hyperglycemia, results should be confirmed by repeat testing. In a patient with classic symptoms of hyperglycemia or hyperglycemic crisis, random plasma glucose results greater than or equal to 200 mg/dL meet the criteria for diagnosis of diabetes. Reference: Standards of Medical Care in Diabetes 2016, [place] [employer] Association. Diabetes Care. 2016.39(Suppl 1). Performed By: #### 2 4321-2 ####[facility] LABORATORYCLIA [id number] [place] [address] [place] Potassium [Moles/Vol] 4.5 mmol/L Normal 3.7-5.1 [facility] Comment on above: Order Comment: [place] Type: BLOOD SPECIMENOrdering Facility: [facility] Address: [address] [place] [address] Performed By: #### 2 4321-2 ####[facility] LABORATORYCLIA [id number] [address] [place] [facility] Sodium [Moles/Vol] 138 mmol/L Normal 136-144 [facility] Comment on above: Order Comment: Speci men Type: BLOOD SPECIMENOrdering Facility: [facility] Address: [address] [place] [address] Performed By: #### 2 4321-2 ####[facility]ORATORYCLIA [id number] [address] [place] Urea nitrogen [Mass/Vol] 15 mg/dL Normal 9-24 [facility] Comment on above: Order Comment: Speci men Type: BLOOD SPECIMENOrdering Facility: [facility] Address: [address] [place] [address] Performed By: #### 2 4321-2 ####[facility]ATORYCLIA [id number] [address] CBC panel Auto (Bld)on 02-01 Erythrocyte distribution width (RBC) [Ratio] 13.5 % Normal 11.5-15.0 [facility] Comment on above: Order Comment: Speci men Type: BLOOD SPECIMENOrdering Facility: [facility] Address: [address] [place] [address] Performed By: #### 5 8410-2 ####[facility]ATORYCLIA [id number] [address] Hematocrit (Bld) [Volume fraction] 38.5 % Low 39.0-51.0 [facility] Comment on above: Order Comment: Speci men Type: BLOOD SPECIMENOrdering Facility: [facility] Address: [address] [place] [address] Performed By: #### 5 8410-2 ####[facility]ATORYCLIA [id number] [address] [place] Hemoglobin (Bld) [Mass/Vol] 12.1 g/dL Low 13.0-17.0 [facility] Comment on above: Order Comment: Speci men Type: BLOOD SPECIMENOrdering Facility: [facility] Address: [address] [place] [address] Performed By: #### 5 8410-2 ####[facility]ATORYCLIA [id number] [address] MCH (RBC) [Entitic mass] 28.3 pg Normal 26.0-34.0 [facility] Comment on above: Order Comment: Speci men Type: BLOOD SPECIMENOrdering Facility: [facility] Address: [address] [place] [address] Performed By: #### 5 8410-2 ####[facility]ATORYCLIA [id number] [address] MCHC (RBC) [Mass/Vol] 31.4 g/dL Normal 30.5-36.0 [facility] Comment on above: Order Comment: Speci men Type: BLOOD SPECIMENOrdering Facility: [facility] Address: [address] [place] [address] Performed By: #### 5 8410-2 ####[facility]ATORYCLIA [id number] [address] MCV (RBC) [Entitic vol] 90.0 fL Normal 80.0-100.0 [facility] Comment on above: Order Comment: Speci men Type: BLOOD SPECIMENOrdering Facility: [facility] Address: [address] [place] [address] Performed By: #### 5 8410-2 ####[facility]ATORYCLIA [id number] [address] Nucleated RBC (Bld) [#/Vol] 10*3/uL Normal <0.01 [facility] Comment on above: Order Comment: Speci men Type: BLOOD SPECIMENOrdering Facility: [facility] Address: [address] [place] [address] Performed By: #### 5 8410-2 ####[facility]ATORYCLIA [id number] [address] Platelet mean volume (Bld) [Entitic vol] 9.7 fL Normal 9.0-12.7 [facility] Comment on above: Order Comment: Speci men Type: BLOOD SPECIMENOrdering Facility: [facility] Address: [address] [place] [address] Performed By: #### 5 8410-2 ####[facility]ATORYCLIA [id number] [address] [place] Platelets (Bld) [#/Vol] 574 10*3/uL High 150-400 [facility] Comment on above: Order Comment: Speci men Type: BLOOD SPECIMENOrdering Facility: [facility] Address: [address] [place] [address] Performed By: #### 5 8410-2 ####[facility]ATORYCLIA [id number] [address] RBC (Bld) [#/Vol] 4.28 10*6/uL Normal 4.20-6.00 [facility] Comment on above: Order Comment: Speci men Type: BLOOD SPECIMENOrdering Facility: [facility] Address: [address] [place] [address] Performed By: #### 5 8410-2 ####[facility]ATORYCLIA [id number] [address] [place] WBC (Bld) [#/Vol] 13.22 10*3/uL High 3.70-11.00 [facility] Comment on above: Order Comment: Speci men Type: BLOOD SPECIMENOrdering Facility: [facility] Address: [address] [place] [address] Performed By: #### 5 8410-2 ####[facility]ORATORYCLIA [id number] [address] ALLIED HEALTHon 02-01-2024 ALLIED HEALTH HNO ID: [id number] Author: RAHEL ESCAMILLA Tech Service: Radiology Author Type: Technologist Type: Allied Health Filed: 02/01/2024 16:49 Note Text: Radiology Service Progress Note DATE OF SERVICE: February 01, 2024 TIME: 4:49 PM PATIENT IDENTITY VERIFICATION COMPLETED USING TWO (2) STANDARD IDENTIFIERS: Name and Date of confirmed by patient verbally and Name and Date of confirmed by identification band. FALL SCREENING: Has the patient had 2 falls in the last year or 1 fall with injury or currently using an Ambulatory Assistive Device (Walker, Cane, Wheelchair, Crutches, etc.)? Inpatient: Screened on floor PATIENT GENDER DATA: Male PATIENT RELEVANT IMPLANT DATA REVIEWED: Yes PATIENT PRESENTS WITH AN IMPLANTABLE OR ATTACHED PLAYGROUND MONITOR: No ALLERGIES: Reviewed and unchanged CONTRAST ALLERGY: NO. EXAM: CT -CONTRAST INDUCED NEPHROPATHY RISK FACTORS: Not applicable CREATININE: Creatinine Date Value Ref Range Status 02/01/2024 1.45 (H) 0.73 - 1.22 mg/dL Final 01/31/2024 1.36 (H) 0.73 - 1.22 mg/dL Final Estimated Glomerular Filtration Rate Date Value Ref Range Status 02/01/2024 61 >=60 mL/min/1.73m? Final Comment: Estimated Glomerular Filtration Rate (eGFR) is calculated using the 2020 CKD-EPI creatinine equation. This equation utilizes serum creatinine, sex, and age as parameters. The creatinine assay has traceable calibration to isotope dilution-mass spectrometry. Refer to KDIGO guidelines for clinical interpretation. In patients with unstable renal function, e.g. those with acute kidney injury, the eGFR may not accurately reflect actual GFR. P.O.C.T. RESULTS: POC done: Yes, See Lab Tab February 01, 2024 TREATMENT: N/A PERIPHERAL IV DATA: Inpatient - refer to LDA documentation RADIOLOGY DEPARTMENT: CT; Exam(s) Completed: Abdomen/Pelvis and CTA Chest SIGNATURE: Danny Celeste PATIENT NAME: Terrie Allen DATE: February 01, 2024 TIME: 4:49 PM Normal [facility] ALLIED [facility]ALTH HNO ID: [id number] Author: VARINDER HART RT(R) Service: ? Author Type: Technologist Type: Allied Health Filed: 02/01/2024 05:08 Note Text: Radiology Service Progress Note PATIENT NAME: Terrie Allen DATE OF SERVICE: February 01, 2024 TIME: 5:08 AM PATIENT IDENTITY VERIFICATION COMPLETED USING TWO (2) IDENTIFIERS: Name and Date of confirmed by patient verbally and Name and Date of confirmed by identification band. FALL SCREENING: Has the patient had 2 falls in the last year or 1 fall with injury or currently using an Ambulatory Assistive Device (Walker, Cane, Wheelchair, Crutches, etc.)? Inpatient: Screened on floor PATIENT GENDER DATA: Male PATIENT RELEVANT IMPLANT DATA REVIEWED: Not Applicable PATIENT PRESENTS WITH AN IMPLANTABLE OR ATTACHED PLAYGROUND MONITOR: No RADIOLOGY DEPARTMENT: General X-ray: Exam(s) Completed: Chest X-Ray PERIPHERAL IV DATA: Not applicable SIGNED BY: RT Shine(R) February 01, 2024 5:08 AM Normal [facility] Basic metabolic 2000 panelon 02-01-2024 Anion gap [Moles/Vol] 9 mmol/L Normal 9-18 [facility] Comment on above: Order Comment: Speci men Type: BLOOD SPECIMENOrdering Facility: [facility] Address: [address] [place] [address] Performed By: #### 2 4321-2 ####[facility] LABORATORYCLIA [id number] [place] [address] [place] Calcium [Mass/Vol] 9.4 mg/dL Normal 8.5-10.2 [facility] Comment on above: Order Comment: Speci men Type: BLOOD SPECIMENOrdering Facility: [facility] Address: [address] [place] [address] Performed By: #### 2 4321-2 ####[facility] LABORATORYCLIA [id number] [place] [address] [place] Chloride [Moles/Vol] 98 mmol/L Normal 97-105 [facility] Comment on above: Order Comment: Speci men Type: BLOOD SPECIMENOrdering Facility: [facility] [facility] Address: [address] [place] [address] Performed By: #### 2 4321-2 ####[facility]ORATORYCLIA [id number] [place] [address] [place] CO2 [Moles/Vol] 27 mmol/L Normal 22-30 [facility] Comment on above: Order Comment: Speci men Type: BLOOD SPECIMENOrdering Facility: [facility] Address: [address] [place] [address] Performed By: #### 2 4321-2 ####[facility]CLIA [id number] [place] [id number] [place] [facility] Creatinine [Mass/Vol] 1.45 mg/dL High 0.73-1.22 [facility] Comment on above: Order Comment: Speci men Type: BLOOD SPECIMENOrdering Facility: [facility] Address: [address] [place] [address] Performed By: #### 2 4321-2 ####[facility]ORATORYCLIA [id number] [address] Creatinine and Glomerular filtration rate.predicted panel (S/P/Bld) 61 mL/min/1.73m??? Normal >=60 [facility] Comment on above: Order Comment: Speci men Type: BLOOD SPECIMENOrdering Facility: [facility] Address: [address] [place] [address] Result Comment: Tracy mated Glomerular Filtration Rate (eGFR) is calculated using the 2020 CKD-EPI creatinine equation. This equation utilizes serum creatinine, sex, and age as parameters. The creatinine assay has traceable calibration to isotope dilution-mass spectrometry. Refer to KDIGO guidelines for clinical interpretation. In patients with unstable renal function, e.g. those with acute kidney injury, the eGFR may not accurately reflect actual GFR. Performed By: #### 2 4321-2 ####[facility] LABORATORYIA [id number] [address] [place] Glucose [Mass/Vol] 100 mg/dL High 74-99 [facility] Comment on above: Order Comment: Speci men Type: BLOOD SPECIMENOrdering Facility: [facility] Address: [address] [place] [address] Result Comment: The [place] Diabetes Association (ADA) provides guidance for cutoff values for fasting glucose and random glucose. The ADA defines fasting as no caloric intake for at least 8 hours. Fasting plasma glucose results between 100 to 125 mg/dL indicate increased risk for diabetes (prediabetes). Fasting plasma glucose results greater than or equal to 126 mg/dL meet the criteria for diagnosis of diabetes. In the absence of unequivocal hyperglycemia, results should be confirmed by repeat testing. In a patient with classic symptoms of hyperglycemia or hyperglycemic crisis, random plasma glucose results greater than or equal to 200 mg/dL meet the criteria for diagnosis of diabetes. Reference: Standards of Medical Care in Diabetes 2016, [place] [employer] Association. Diabetes Care. 2016.39(Suppl 1). Performed By: #### 2 4321-2 ####[facility]ATORYCLIA [id number] [address] Potassium [Moles/Vol] 4.0 mmol/L Normal 3.7-5.1 [facility] Comment on above: Order Comment: [place] Type: BLOOD SPECIMENOrdering Facility: [facility] Address: [address] [place] [address] Performed By: #### 2 4321-2 ####[facility]ATORYCLIA [id number] [address] Sodium [Moles/Vol] 134 mmol/L Low 136-144 [facility] Comment on above: Order Comment: [place] Type: BLOOD SPECIMENOrdering Facility: [facility] Address: [address] [place] [address] Performed By: #### 2 4321-2 ####[facility]ORATORYCLIA [id number] [address] Urea nitrogen [Mass/Vol] 18 mg/dL Normal 9-24 [facility] Comment on above: Order Comment: [place] Type: BLOOD SPECIMENOrdering Facility: [facility] Address: [address] [place] [address] Performed By: #### 2 4321-2 ####[facility]ORATORYCLIA [id number] [address] CBC panel Auto (Bld)on 01-31 Erythrocyte distribution width (RBC) [Ratio] 13.5 % Normal 11.5-15.0 [facility] Comment on above: Order Comment: [place] Type: BLOOD SPECIMENOrdering Facility: [facility] Address: [address] [place] [address] Performed By: #### 5 8410-2 ####[facility]ORATORYCLIA [id number] [address] OF [facility] Hematocrit (Bld) [Volume fraction] 38.6 % Low 39.0-51.0 [facility] Comment on above: Order Comment: Speci men Type: BLOOD SPECIMENOrdering Facility: [facility] Address: [address] [place] [address] Performed By: #### 5 8410-2 ####[facility]ATORYCLIA [id number] [address] OF [facility] Hemoglobin (Bld) [Mass/Vol] 12.3 g/dL Low 13.0-17.0 [facility] Comment on above: Order Comment: Speci men Type: BLOOD SPECIMENOrdering Facility: [facility] Address: [address] [place] [address] Performed By: #### 5 8410-2 ####[facility]ATORYCLIA [id number] [address] STATES OF [facility] MCH (RBC) [Entitic mass] 28.5 pg Normal 26.0-34.0 [facility] Comment on above: Order Comment: Speci men Type: BLOOD SPECIMENOrdering Facility: [facility] Address: [address] [place] [address] Performed By: #### 5 8410-2 ####[facility]ATORYCLIA [id number] [address] [place] MCHC (RBC) [Mass/Vol] 31.9 g/dL Normal 30.5-36.0 [facility] Comment on above: Order Comment: Speci men Type: BLOOD SPECIMENOrdering Facility: [facility] Address: [address] [place] [address] Performed By: #### 5 8410-2 ####[facility]ORATORYCLIA [id number] [address] [place] MCV (RBC) [Entitic vol] 89.4 fL Normal 80.0-100.0 [facility] Comment on above: Order Comment: Speci men Type: BLOOD SPECIMENOrdering Facility: [facility] Address: [address] [place] [address] Performed By: #### 5 8410-2 ####[facility]ATORYCLIA [id number] [address] OF [place] Nucleated RBC (Bld) [#/Vol] 10*3/uL Normal <0.01 [facility] Comment on above: Order Comment: Speci men Type: BLOOD SPECIMENOrdering Facility: [facility] Address: [address] [place] [address] Performed By: #### 5 8410-2 ####[facility]ATORYCLIA [id number] [address] [place] Platelet mean volume (Bld) [Entitic vol] 9.4 fL Normal 9.0-12.7 [facility] Comment on above: Order Comment: Speci men Type: BLOOD SPECIMENOrdering Facility: [facility] Address: [address] [place] [address] Performed By: #### 5 8410-2 ####[facility]ATORYCLIA [id number] [address] [place] Platelets (Bld) [#/Vol] 577 10*3/uL High 150-400 [facility] Comment on above: Order Comment: Speci men Type: BLOOD SPECIMENOrdering Facility: [facility] Address: [address] [place] [address] Performed By: #### 5 8410-2 ####[facility]ATORYCLIA [id number] [address] [place] RBC (Bld) [#/Vol] 4.32 10*6/uL Normal 4.20-6.00 [facility] Comment on above: Order Comment: Speci men Type: BLOOD SPECIMENOrdering Facility: [facility] Address: [address] [place] [address] Performed By: #### 5 8410-2 ####[facility]ORATORYCLIA [id number] [place] [address] [place] WBC (Bld) [#/Vol] 13.29 10*3/uL High 3.70-11.00 [facility] Comment on above: Order Comment: Speci men Type: BLOOD SPECIMENOrdering Facility: [facility] Address: [address] [place] [address] Performed By: #### 5 8410-2 ####[facility]ORATORYCLIA [id number] [place] [address] [facility] OF [place] CT ABD/PEL W IVCONon 024 CT ABD/PEL W IVCON * * *Final Report* * * DATE OF EXAM: Feb 01 2024 4:52PM [facility] 0530 - CT ABD/PEL W IVCON / PROCEDURE REASON: Peritonitis or perforation suspected * * * * Physician Interpretation * * * * EXAMINATION: CT ABD/PEL W IVCON CLINICAL HISTORY: Peritonitis or perforation suspected , abdominal pain, drain placement, exploratory laparotomy for intussusception, abscess, washout, abscess drain, left-sided chest wall discomfort, shortness of breath TECHNIQUE: CT of the abdomen and pelvis was performed using standard technique, scanning from just above the dome of the diaphragm to the symphysis pubis. Contrast: IV: 100 ml of Omnipaque 350 Dose-Length Product (DLP): 1335 mGy*cm CT Dose Reduction Employed: mAs-kVp adjusted based on patient size-age COMPARISON: CT of the abdomen and pelvis with IV contrast from outside facility 01/30/2024 and 01/18/2024 RESULT: Lower thorax: See report for CT of the chest concurrently acquired and separately dictated. Liver: Stable subcentimeter hypodensity right lobe of the liver that is too small to characterize. Biliary: Normal gallbladder. No duct dilation. Spleen: No mass. Pancreas: No mass or ductal dilation. Adrenals: No mass. Kidneys: No enhancing mass or hydronephrosis. GI tract: Right hemicolectomy with right upper quadrant ileocolonic anastomosis. No bowel obstruction. Lymph nodes: No lymphadenopathy. Mesentry/Peritoneum/Retro peritoneum: Interval placement of percutaneous pigtail drainage catheter into an irregular fluid collection in the right lower quadrant with trace residual fluid and adjacent fat stranding. Small foci of adjacent peritoneal air, presumably from drain placement. Trace free pelvic fluid. 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 No abdominal aortic aneurysm or branch occlusion. Pelvis: The prostate is enlarged. Normal bladder. Soft tissues: Midline incision opened at its inferior aspect with small amount of air in the underlying right rectus muscle and adjacent fat stranding. Bones: No acute findings. IMPRESSION: 1. Interval placement of right percutaneous pigtail drainage catheter into the right lower quadrant collection with trace residual fluid. 2. Midline surgical incision opened at the inferior aspect with small amount of air extending down to the underlying rectus muscle. No associated fluid collection. 3. Surgical changes of right hemicolectomy. No bowel obstruction. 4. 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 Business Support Assistant: [facility] Transcribe Date/Time: Feb 01 2024 5:13P Dictated by : BERNADETTE MCNEAL MD This examination was interpreted and the report reviewed and electronically signed by: BERNADETTE MCNEAL MD on Feb 01 2024 5:28PM EST [id number] Normal [facility] CT CHEST W IVCON PEon 2023 CT CHEST W IVCON PE * * *Final Report* * * DATE OF EXAM: Feb 01 2024 4:52PM [facility] 0540 - CT CHEST W IVCON PE / PROCEDURE REASON: Pulmonary embolism (PE) suspected, high prob * * * * Physician Interpretation * * * * EXAMINATION: CHEST CT WITH CONTRAST (PULMONARY EMBOLISM PROTOCOL) CLINICAL HISTORY: Pulmonary embolism suspected, high pretest probability. Shortness of breath. Technique: Spiral CT acquisition of the chest from the thoracic inlet to the upper abdomen following IV contrast. Axial 1 and 3 mm thick slices plus coronal and sagittal reformatted images. MQ: CTCP_5 Contrast: 100 mL Omnipaque [address] Radiation dose: Integrated Dose-length product (DLP) for this visit = 1335 mGy*cm CT Dose Reduction Employed: mAs-kVp adjusted based on patient size-age Comparison: 02/01/2024 RESULT: Limitations: Patient's arms at side with associated artifact; respiratory motion; suboptimal opacification of the pulmonary arteries. Evaluation for thromboembolic disease: - Right heart chambers: No thromboembolic disease. - Main pulmonary arteries: No thromboembolic disease. - Lobar pulmonary arteries: Patent proximally. Nondiagnostic distally. - Segmental pulmonary arteries: Nondiagnostic. - Subsegmental pulmonary arteries: Nondiagnostic. - Additional pulmonary artery findings: The main pulmonary artery is normal in caliber. Lines, tubes, and devices: None. Lung parenchyma and airways: Central airways are patent. Favor dependent changes both lower lobes, infection less likely. Pleural space: Small pleural effusions with adjacent atelectasis favored. No pneumothorax. Lower neck, lymph nodes, and mediastinum: 9 mm hypodense nodule in the LEFT lobe of the thyroid gland. No lymphadenopathy identified by size criteria. Retained enteric contrast within the mid and lower esophagus. Heart, pericardium, and thoracic vessels: The thoracic aorta is normal in caliber. The cardiac chambers are normal in size. No coronary artery atherosclerotic calcifications are noted, although the study is not optimized for coronary assessment. No pericardial effusion or thickening. Bones and soft tissues: No destructive bone lesion. Chest wall is unremarkable. Upper abdomen: Reported separately. Data Entry Associate (topogram) images: Remote LEFT clavicle fracture with hardware. No additional findings. IMPRESSION: No large central pulmonary embolism detected. Nondiagnostic evaluation of the mid and distal pulmonary arteries for reasons discussed. Small bilateral pleural effusions with adjacent atelectasis favored. 9 mm nodule in the LEFT lobe of the thyroid gland. This may be further evaluated with nonemergent thyroid ultrasound. Details and incidental findings as discussed. Business Support Assistant: [place] Transcribe Date/Time: Feb 01 2024 5:12P Dictated by : RICCO LYNN MD This examination was interpreted and the report reviewed and electronically signed by: RICCO LYNN MD on Feb 01 2024 5:22PM EST [id number] Normal [facility] ECG COMPLETEon 02-01-2024 ECG COMPLETE Ventricular Rate : 9 5 BPM Atrial Rate : 95 BPM P-R Interval : 88 ms QRS Duration : 98 ms Q-T Interval : 376 ms QTC Calculation(Bazett) : 472 ms Calculated P [place] : 46 degrees Calculated R [place] : 21 degrees Calculated T [place] : 214 degrees SINUS RHYTHM WITH SHORT CA POSSIBLE INFERIOR INFARCT , AGE UNDETERMINED T WAVE ABNORMALITY, CONSIDER LATERAL ISCHEMIA ABNORMAL ECG NO PREVIOUS ECGS AVAILABLE Confirmed by URIEL LINDA MD ([id number]) on 02/03/2024 12:22:51 PM NAME : TERRIE ALLEN PID : [id number] : 1980 Gender : Male Race : ORD : [id number] Procedure Date : Feb 01 2024 06:04:13 Edit Date : Feb 03 2024 12:22:51 Diagnosis: SINUS RHYTHM WITH SHORT CA POSSIBLE INFERIOR INFARCT , AGE UNDETERMINED T WAVE ABNORMALITY, CONSIDER LATERAL ISCHEMIA ABNORMAL ECG NO PREVIOUS ECGS AVAILABLE Confirmed by URIEL LINDA MD ([id number]) on 02/03/2024 12:22:51 PM Test Reason : Chest Pain Location : 200 : [facility] 5110 Overread By : URIEL LINDA MD Edited By : URIEL LINDA MD Referred By : RICCO GARCÍA Acquired by : MADDIE PHAM [facility] ECG COMPLETE Ventricular Rate : 8 1 BPM Atrial Rate : 81 BPM P-R Interval : 132 ms QRS Duration : 82 ms Q-T Interval : 380 ms QTC Calculation(Bazett) : 441 ms Calculated P [place] : 41 degrees Calculated R [place] : 24 degrees Calculated T [place] : 186 degrees NORMAL SINUS RHYTHM NONSPECIFIC T WAVE ABNORMALITY ABNORMAL ECG NO PREVIOUS ECGS AVAILABLE Confirmed by URIEL LINDA MD ([id number]) on 02/03/2024 12:23:31 PM NAME : TERRIE ALLEN PID : [id number] : 1980 Gender : Male Race : ORD : [id number] Procedure Date : Feb 01 2024 04:50:35 Edit Date : Feb 03 2024 12:23:38 Diagnosis: NORMAL SINUS RHYTHM NONSPECIFIC T WAVE ABNORMALITY ABNORMAL ECG NO PREVIOUS ECGS AVAILABLE Confirmed by URIEL LINDA MD ([id number]) on 02/03/2024 12:23:31 PM Test Reason : stat [facility] : [facility] Overread By : URIEL LINDA MD Edited By : URIEL LINDA MD Referred By : RICCO GARCÍA Acquired by : ANKITMADDIE Rosales [facility] Gas and Carbon monoxide pane l (BldV)on 02-01-2024 Base excess Calc (BldV) [Moles/Vol] 1 mmol/L Normal 0-2 [facility] Comment on above: Order Comment: Speci men Type: VENOUS BLOOD SPECIMENOrdering Facility: [facility] Address: [address] [place] [address] Performed By: #### 6 462-6 #### [facility] CLIA [id number] [address] Body temperature 98.78 [degF] Normal [facility] Comment on above: Order Comment: Speci men Type: VENOUS BLOOD SPECIMENOrdering Facility: [facility] Address: [address] [place] [address] Performed By: #### 6 462-6 #### [facility] CLIA [id number] [address] Calcium.ionized (BldV) [Mass/Vol] 1.25 mmol/L Normal 1.08-1.30 [facility] Comment on above: Order Comment: Speci men Type: VENOUS BLOOD SPECIMENOrdering Facility: [facility] Address: [address] [place] [address] Performed By: #### 6 462-6 #### [facility] CLIA [id number] [address] Calcium.ionized adjusted to pH 7.4 (BldA) [Moles/Vol] 1.19 mmol/L Normal 1.08-1.30 [facility] Comment on above: Order Comment: Speci men Type: VENOUS BLOOD SPECIMENOrdering Facility: [facility] Address: [address] [place] [address] Performed By: #### 6 462-6 #### [facility] CLIA [id number] [address] [place] Carboxyhemoglobin (BldV) [Mass fraction] 2.4 % High 0.0-2.0 [facility] Comment on above: Order Comment: Speci men Type: VENOUS BLOOD SPECIMENOrdering Facility: [facility] Address: [address] [place] [address] Result Comment: Carb oxyhemoglobin Reference Range for Smokers: 2.0-8.0% Performed By: #### 6 462-6 #### [facility] CLIA [id number] [address] Chloride [Moles/Vol] 104 mmol/L Normal 102-109 [facility] Comment on above: Order Comment: Speci men Type: VENOUS BLOOD SPECIMENOrdering Facility: [facility] Address: [address] [place] [address] Performed By: #### 6 462-6 #### [facility] CLIA [id number] [address] [place] [address] [place] CO2 (BldV) [Partial pressure] 55 mm[Hg] Normal 42-55 [facility] Comment on above: Order Comment: Speci men Type: VENOUS BLOOD SPECIMENOrdering Facility: [facility] Address: [address] [place] [address] Performed By: #### 6 462-6 #### [facility] CLIA [id number] [address] [place] CO2 adjusted to patient's actual temperature (BldV) [Partial pressure] 55 mmHg Normal 42-55 [facility] Comment on above: Order Comment: Speci men Type: VENOUS BLOOD SPECIMENOrdering Facility: [facility] Address: [address] [place] [address] Performed By: #### 6 462-6 #### [facility] CLIA [id number] [address] [place] [address] [place] Glucose [Mass/Vol] 118 mg/dL High 60-105 [facility] Comment on above: Order Comment: Speci men Type: VENOUS BLOOD SPECIMENOrdering Facility: [facility] Address: [address] [place] [address] Performed By: #### 6 462-6 #### [facility] CLIA [id number] [address] [place] [address] [place] HCO3 (Bld) [Moles/Vol] 27 mmol/L Normal 24-28 [facility] Comment on above: Order Comment: Speci men Type: VENOUS BLOOD SPECIMENOrdering Facility: [facility] Address: [address] [place] [address] Performed By: #### 6 462-6 #### [facility] CLIA [id number] [address] Hematocrit (Bld) [Volume fraction] 39.1 % Normal 39.0-51.0 [facility] Comment on above: Order Comment: Speci men Type: VENOUS BLOOD SPECIMENOrdering Facility: [facility] Address: [address] [place] [address] Performed By: #### 6 462-6 #### [facility] CLIA [id number] [address] OF [facility] Hemoglobin (Bld) [Mass/Vol] 12.7 g/dL Low 13.0-17.0 [facility] Comment on above: Order Comment: Speci men Type: VENOUS BLOOD SPECIMENOrdering Facility: [facility] Address: [address] [place] [address] Performed By: #### 6 462-6 #### [facility] CLIA [id number] [address] Lactate [Moles/Vol] 1.4 mmol/L Normal 0.5-2.2 [facility] Comment on above: Order Comment: Speci men Type: VENOUS BLOOD SPECIMENOrdering Facility: [facility] Address: [address] [place] [address] Performed By: #### 6 462-6 #### [facility] CLIA [id number] [address] Methemoglobin (Bld) [Mass fraction] 0.3 % Normal 0.0-1.5 [facility] Comment on above: Order Comment: Speci men Type: VENOUS BLOOD SPECIMENOrdering Facility: [facility] Address: [address] [place] [address] Performed By: #### 6 462-6 #### [facility] CLIA [id number] [address] O2 THERAPY NC = Nasal Cannula Normal [facility] Comment on above: Order Comment: Speci men Type: VENOUS BLOOD SPECIMENOrdering Facility: [facility] Address: [address] [place] [address] Performed By: #### 6 462-6 #### [facility] CLIA [id number] [address] [place] Oxygen (BldV) [Partial pressure] 80 mm[Hg] High 35-45 [facility] Comment on above: Order Comment: Speci men Type: VENOUS BLOOD SPECIMENOrdering Facility: [facility] Address: [address] [place] [address] Performed By: #### 6 462-6 #### [facility] CLIA [id number] [address] [place] Oxygen adjusted to patient's actual temperature (BldV) [Partial pressure] 81 mmHg High 35-45 [facility] Comment on above: Order Comment: Speci men Type: VENOUS BLOOD SPECIMENOrdering Facility: [facility] Address: [address] [place] [address] Performed By: #### 6 462-6 #### [facility] CLIA [id number] [address] [place] Oxygen saturation in Venous blood 95 % High 60-85 [facility] Comment on above: Order Comment: Speci men Type: VENOUS BLOOD SPECIMENOrdering Facility: [facility] Address: [address] [place] [address] Performed By: #### 6 462-6 #### [facility] CLIA [id number] [address] [place] Oxyhemoglobin (BldV) [Mass fraction] 92 % High 60-85 [facility] Comment on above: Order Comment: Speci men Type: VENOUS BLOOD SPECIMENOrdering Facility: [facility] Address: [address] [place] [address] Performed By: #### 6 462-6 #### [facility] CLIA [id number] [address] [place] pH (BldV) 7.32 [pH] Normal 7.32-7.42 [facility] Comment on above: Order Comment: Speci men Type: VENOUS BLOOD SPECIMENOrdering Facility: [facility] Address: [address] [place] [address] Performed By: #### 6 462-6 #### [facility] CLIA [id number] [address] pH adjusted to patient's actual temperature (BldV) 7.31 Low 7.32-7.42 [facility] Comment on above: Order Comment: Speci men Type: VENOUS BLOOD SPECIMENOrdering Facility: [facility] Address: [address] [place] [address] Performed By: #### 6 462-6 #### [facility] CLIA [id number] [address] [place] Potassium [Moles/Vol] 4.0 mmol/L Normal 3.5-5.0 [facility] Comment on above: Order Comment: Speci men Type: VENOUS BLOOD SPECIMENOrdering Facility: [facility] Address: [address] [place] [address] Performed By: #### 6 462-6 #### [facility] CLIA [id number] [address] [place] Sodium [Moles/Vol] 138 mmol/L Normal 136-144 [facility] Comment on above: Order Comment: Speci men Type: VENOUS BLOOD SPECIMENOrdering Facility: [facility] Address: [address] [place] [address] Performed By: #### 6 462-6 #### [facility] CLIA [id number] [address] OF [place] HIGH SENSITIVITY TROPONIN To n 02-01-2024 Troponin T.cardiac High sensitivity method [Mass/Vol] 34 ng/L High <12 [facility] Comment on above: Order Comment: Speci men Type: BLOOD SPECIMENOrdering Facility: [facility] Address: [address] [place] [address] Result Comment: When assessing risk for acute coronary syndromes: In patients undergoing blood draw greater than or equal to 2 hours from symptom onset, with history of very low to moderate risk and non-ischemic ECG, an initial hs-Troponin T less than 12 ng/L AND a 1 hour delta hs-Troponin T less than 3 ng/L should be considered very low risk for 30 day MACE. Performed By: #### 6 462-6 #### [facility] CLIA [id number] [address] OF [facility] Magnesium SerPl-ncon 01-31 Magnesium [Mass/Vol] 2.1 mg/dL Normal 1.7-2.3 [facility] Comment on above: Order Comment: Speci men Type: BLOOD SPECIMENOrdering Facility: [facility] Address: [address] [place] [address] Performed By: #### 1 9123-9, 2777-1 ####[facility] [id number] [address] OF [facility] NURSING PROGon 02-01-2024 NURSING PROG HNO ID: [id number] Author: KHUSHBU RAMOS RN Service: Nursing Author Type: Registered Nurse Type: Nursing Progress Note Filed: 02/01/2024 08:05 Note Text: Event(s) / Intervention Note: PATIENT NAME: Terrie Allen Patient Location: [place] [address]/[id number] - Room: [place] [address] The patient complained of the following problems: 7/10 pain in Left rib cage, sob, inability to take a deep breath. VSS The time of the event occurred at: 0430. The following intervention(s) were initiated: Juana Olson DO notified, EKG, CXR, Trop, bactrim 10mg Po given, and lidocaine patch placed After the initiated interventions, the following observation(s) were made: Patient still complained of worsening pain 10/10 with shallow breathing. VSS. Requested general surgery come and assess patient. Patient continued to feel uncomfortable and kept asking for help. Decision was made to call OBSTETRICS TECH at 0600. EKG, VBG, 0.4mg dilaudid iv ordered, 600mg ibuprofen PO. 0700- General surgery in room to evaluate patient. Normal [facility] Phosphate SerPl-mCncon 01-31 Phosphate [Mass/Vol] 3.8 mg/dL Normal 2.7-4.8 [facility] Comment on above: Order Comment: Speci men Type: BLOOD SPECIMENOrdering Facility: [facility] Address: [place] [address] Performed By: #### 1 9123-9, 2777-1 ####[facility]IA [id number] [place] [address] [place] OF [facility] XR CHEST 1V FRONTALon 2023 XR CHEST 1V FRONTAL * * *Final Report* * * DATE OF EXAM: Feb 01 2024 5:08AM AKX [id number] - XR CHEST 1V FRONTAL / PROCEDURE REASON: Shortness of breath * * * * Physician Interpretation * * * * EXAMINATION: CHEST RADIOGRAPH (SINGLE VIEW AP OR PA) CLINICAL HISTORY: Shortness of breath MQ: XC1_5 Comparison: None RESULT: Lines, tubes, and devices: None. Lungs and pleura: Small volume LEFT pleural effusions. LEFT greater than RIGHT bibasilar groundglass opacities. No pneumothorax. Cardiomediastinal silhouette: Normal cardiomediastinal silhouette. Other: No acute osseous findings. IMPRESSION: Small volume LEFT pleural effusion with mild LEFT greater than RIGHT bibasilar opacities favoring atelectasis. Superimposed infection or aspiration in the LEFT lung base cannot be excluded. Business Support Assistant: DELGADO Transcribe Date/Time: Feb 01 2024 5:11A Dictated by : ALINA ADHIKARI MD This examination was interpreted and the report reviewed and electronically signed by: ALINA ADHIKARI MD on Feb 01 2024 5:21AM EST [id number] Normal [facility] BRIEF OP NOTon 01-31-2024 BRIEF OP NOT HNO ID: [id number] Author: CHARLES ORTA MD Service: Radiology Author Type: Physician Type: Brief Op Note Filed: 01/31/2024 10:02 Note Text: INTERVENTIONAL RADIOLOGY POST PROCEDURE NOTE DATE: 01/31/24 NAME: Terrie Allen LOG ID: [id number] Pre-Procedure Diagnosis: RLQ postoperative abscess Choir Singer: Surgeon(s) and Role: * Charles Orta MD, - Primary Procedure: Place drain Anesthesia: Procedural Sedation Findings: 10 Fr 25 cm Skater placed . ~ 12 cc pus aspirated Estimated Blood Loss: 2 mls Specimen: To microbiology Complications: None Post-Op/Post-Procedure Diagnosis: RLQ postoperative abscess Normal [facility] Bacteria Wnd Culton 01-31-20 24 Bacteria identified Cx Nom (Wound) ORGANISM ID: 1 Few Lactobacillus species Identified as Lactobacillus rhamnosus No further workup ORGANISM ID: 2 Rare Yadi lusitaniae (Clavispora lusitaniae) No further workup ORGANISM ID: 3 Few Saccharomyces cerevisiae Susceptibility is being performed by [facility]. Any questions, please call Client Services at . GRAM STAIN: Few Yeast Many Polymorphonuclear leukocytes Abnormal [facility] Comment on above: Performed By: #### 6 462-6 ####[facility]IA [id number] [place] [address] [place]#### 18893-7 ####[facility] LABCLIA [id number] [facility] [place] [address] [place] Basic metabolic 2000 panelon 01-31-2024 Anion gap [Moles/Vol] 10 mmol/L Normal 9-18 [facility] Comment on above: Order Comment: Speci men Type: BLOOD SPECIMENOrdering Facility: [facility] Address: [address] [place] [address] Performed By: #### 2 4321-2 ####[facility]ORY[facility]IA [id number] [place] [address] [place] Calcium [Mass/Vol] 9.6 mg/dL Normal 8.5-10.2 [facility] Comment on above: Order Comment: Speci men Type: BLOOD SPECIMENOrdering Facility: [facility] Address: [address] [place] [address] Performed By: #### 2 4321-2 ####[facility]ORY[facility]IA [id number] [place] [address] [place] Chloride [Moles/Vol] 103 mmol/L Normal 97-105 [facility] Comment on above: Order Comment: Speci men Type: BLOOD SPECIMENOrdering Facility: [facility] Address: [address] [place] [address] Performed By: #### 2 4321-2 ####[facility]IA [id number] [place] [id number] [place] CO2 [Moles/Vol] 25 mmol/L Normal 22-30 [facility] Comment on above: Order Comment: Speci men Type: BLOOD SPECIMENOrdering Facility: [facility] Address: [address] [place] [address] Performed By: #### 2 4321-2 ####[facility] [id number] [address] [place] Creatinine [Mass/Vol] 1.36 mg/dL High 0.73-1.22 [facility] Comment on above: Order Comment: Speci men Type: BLOOD SPECIMENOrdering Facility: [facility] Address: [address] [place] [address] Performed By: #### 2 4321-2 ####[facility]IA [id number] [address] Creatinine and Glomerular filtration rate.predicted panel (S/P/Bld) 66 mL/min/1.73m??? Normal >=60 [facility] Comment on above: Order Comment: Speci men Type: BLOOD SPECIMENOrdering Facility: [facility] Address: [address] [place] [address] Result Comment: Tracy mated Glomerular Filtration Rate (eGFR) is calculated using the 2020 CKD-EPI creatinine equation. This equation utilizes serum creatinine, sex, and age as parameters. The creatinine assay has traceable calibration to isotope dilution-mass spectrometry. Refer to KDIGO guidelines for clinical interpretation. In patients with unstable renal function, e.g. those with acute kidney injury, the eGFR may not accurately reflect actual GFR. Performed By: #### 2 4321-2 ####[facility]IA [id number] [address] [place] Glucose [Mass/Vol] 103 mg/dL High 74-99 [facility] Comment on above: Order Comment: Cait men Type: BLOOD SPECIMENOrdering Facility: [facility] Address: [address] [place] [id number] Result Comment: The [place] Diabetes Association (ADA) provides guidance for cutoff values for fasting glucose and random glucose. The ADA defines fasting as no caloric intake for at least 8 hours. Fasting plasma glucose results between 100 to 125 mg/dL indicate increased risk for diabetes (prediabetes). Fasting plasma glucose results greater than or equal to 126 mg/dL meet the criteria for diagnosis of diabetes. In the absence of unequivocal hyperglycemia, results should be confirmed by repeat testing. In a patient with classic symptoms of hyperglycemia or hyperglycemic crisis, random plasma glucose results greater than or equal to 200 mg/dL meet the criteria for diagnosis of diabetes. Reference: Standards of Medical Care in Diabetes 2016, [place] [employer] Association. Diabetes Care. 2016.39(Suppl 1). Performed By: #### 2 4321-2 ####[facility]ORYCLIA [id number] [place] [address] [place] Potassium [Moles/Vol] 4.1 mmol/L Normal 3.7-5.1 [facility] Comment on above: Order Comment: Cait sergio Type: BLOOD SPECIMENOrdering Facility: [facility] Address: [address] [place] [address] Performed By: #### 2 4321-2 ####[facility]ORYCLIA [id number] [place] [address] [place] Sodium [Moles/Vol] 138 mmol/L Normal 136-144 [facility] Comment on above: Order Comment: Walkeri men Type: BLOOD SPECIMENOrdering Facility: [facility] Address: [address] [place] [id number] Performed By: #### 2 4321-2 ####[facility]ORYCLIA [id number] [place] [address] [place] Urea nitrogen [Mass/Vol] 16 mg/dL Normal 9-24 [facility] Comment on above: Order Comment: Walkeri men Type: BLOOD SPECIMENOrdering Facility: [facility] Address: [address] [place] [address] Performed By: #### 2 4321-2 ####[facility]ORYCLIA [id number] [address] CBC panel Auto (Bld)on 01-30 Erythrocyte distribution width (RBC) [Ratio] 13.5 % Normal 11.5-15.0 [facility] Comment on above: Order Comment: Speci men Type: BLOOD SPECIMENOrdering Facility: [facility] Address: [address] [place] [address] Performed By: #### 6 00-7 #### [facility] CLIA [id number] [address] Hematocrit (Bld) [Volume fraction] 36.6 % Low 39.0-51.0 [facility] Comment on above: Order Comment: Speci men Type: BLOOD SPECIMENOrdering Facility: [facility] Address: [address] [place] [address] Performed By: #### 6 00-7 #### [facility] CLIA [id number] [address] Hemoglobin (Bld) [Mass/Vol] 11.9 g/dL Low 13.0-17.0 [facility] Comment on above: Order Comment: Speci men Type: BLOOD SPECIMENOrdering Facility: [facility] Address: [address] [place] [address] Performed By: #### 6 00-7 #### [facility] CLIA [id number] [address] MCH (RBC) [Entitic mass] 28.4 pg Normal 26.0-34.0 [facility] Comment on above: Order Comment: Speci men Type: BLOOD SPECIMENOrdering Facility: [facility] Address: [address] [place] [address] Performed By: #### 6 00-7 #### [facility] CLIA [id number] [address] MCHC (RBC) [Mass/Vol] 32.5 g/dL Normal 30.5-36.0 [facility] Comment on above: Order Comment: Speci men Type: BLOOD SPECIMENOrdering Facility: [facility] Address: [address] [place] [address] Performed By: #### 6 -7 #### [facility] CLIA [id number] [address] MCV (RBC) [Entitic vol] 87.4 fL Normal 80.0-100.0 [facility] Comment on above: Order Comment: Speci men Type: BLOOD SPECIMENOrdering Facility: [facility] Address: [address] [place] [address] Performed By: #### 6 -7 #### [facility] CLIA [id number] [address] Nucleated RBC (Bld) [#/Vol] 10*3/uL Normal <0.01 [facility] Comment on above: Order Comment: Speci men Type: BLOOD SPECIMENOrdering Facility: [facility] Address: [address] [place] [address] Performed By: #### 6 -7 #### [facility] CLIA [id number] [address] Platelet mean volume (Bld) [Entitic vol] 9.5 fL Normal 9.0-12.7 [facility] Comment on above: Order Comment: Speci men Type: BLOOD SPECIMENOrdering Facility: [facility] Address: [address] [place] [address] Performed By: #### 6 -7 #### [facility] CLIA [id number] [address] [place] Platelets (Bld) [#/Vol] 601 10*3/uL High 150-400 [facility] Comment on above: Order Comment: Speci men Type: BLOOD SPECIMENOrdering Facility: [facility] Address: [address] [place] [address] Performed By: #### 6 -7 #### [facility] CLIA [id number] [address] [place] RBC (Bld) [#/Vol] 4.19 10*6/uL Low 4.20-6.00 [facility] Comment on above: Order Comment: Speci men Type: BLOOD SPECIMENOrdering Facility: [facility] Address: [address] [place] [address] Performed By: #### 6 00-7 #### [facility] CLIA [id number] [address] OF [facility] WBC (Bld) [#/Vol] 13.07 10*3/uL High 3.70-11.00 [facility] Comment on above: Order Comment: Speci men Type: BLOOD SPECIMENOrdering Facility: [facility] Address: [address] [place] [address] Performed By: #### 6 00-7 #### [facility] CLIA [id number] [address] CONSULTon 01-31-2024 CONSULT HNO ID: [id number] Author: KEVIN CORONA III, MD Service: Infectious Disease Author Type: Physician Type: Consults Filed: 01/31/2024 15:08 Note Text: Consultation requested by Dr. Christensen for an opinion regarding intra-abdominal abscess and if pouako kura kaupapa maori antibiotics needed. My final recommendations will be communicated back to the requesting physician by way of shared electronic medical record. Assessment Prior intussusception related to inflammatory mass Abdominal abscesses secondary to this. with mixed anaerobes, enterococcus, e. 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 S/p IR guided drain placement of additional abscess on 01/30 Plan Continue zosyn. Adjust based on new cultures. Plan for 4 weeks of IV then six months oral therapy (at that point likely amoxicillin monotherapy) given actinomyces present. If there are any questions or concerns over the weekend, please contact Dr. Rizwan Gould or Cinthya GarciaNTommy. Thank you Subjective HPI: Originally admitted to outside hospital on 01/09 with intussusception. Taken to operating room for this. Described as having inflammatory mass although I was having difficulty finding path report. Readmitted with abscess. Back to operating room on 01/18. Another abscess was found on 01/29 so he was transferred here for mgmt. Had IR guided drain placed. On zosyn. I saw him while wound center was in. He is feeling ok right now. Has abdominal pain. No nausea or diarrhea with antibiotics. Review of Systems Objective Data: Labs: Recent Labs 01/31/24 0439 WBC 13.07* HB 11.9* HCT 36.6* PLT 601* NA 138 K 4.1 CHLOR 103 CO2 25 CREAT 1.36* BUN 16 GLUC 103* CA 9.6 INR 1.1 Microbiology: 01/23 abdominal wound- enterococcus (ampicillin susceptible), bacteroides thetaiotaomicron 01/21 wound culture- 01/20 blood culture- no growth 01/18 abdominal culture- pseudomonas (gordillo-susceptible), e. Faecalis (ampicillin susceptible), group G strep, E. Coli (bactrim, gentamicin, unasyn resistant, otherwise susceptible), parabacteroides distoasnis, bacteroides ovatus, bacteroides fragilis- 01/18 urine culture no growth 01/17 urine culture no growth 01/16 wound culture 01/14 culture -anaerobic with B. Fragilis and actinomyces naeslundii -aerobic with E. Faecalis and pseudomnas aeruginosa- same susceptibility as above. Imaging: Other: Meds:Reviewed Active Antimicrobials (From admission, onward) Start Stop 01/31/24 0400 piperacillin-tazobactam iv piggyback 3.375 g in dextrose (iso-osmotic) 50 mL (ZOSYN) 3.375 g, INTRAVENOUS, EVERY 6 HOURS -- BP 121/73 Pulse 73 Temp (Src) 97.4 (Oral) Resp 18 Ht 6' 3" (1.91m) Wt 205 lb 0.4 oz (93.0kg) SpO2 95% BMI 25.63 kg/(m2). O2 Therapy: Room Air Physical Exam Lying in bed. Looks uncomfortable but no distress. Drain in right lower abdomen. Midline wound present. Base of wound looks like fascia with some slough present. ALLERGIES No Known Allergies PAST MEDICAL HISTORY Diagnosis Date Diarrhea 12/18/05 Irritable bowel syndrome Irritable bowel PAST SURGICAL HISTORY Procedure Laterality Date PAST SURGICAL HISTORY OF left clavicle repair with plate,2004 SIGMOIDOSCOPY FLX DX W/COLLJ SPEC BR/WA IF PFRMD 12/18/05 Social History Tobacco Use Smoking status: Never Substance Use Topics Alcohol use: No SIGNATURE: Kevin Corona III, MD PATIENT NAME: Terrie Allen DATE: January 31, 2024 TIME: 8:47 AM PAGER #: [phone] [facility] CELL: [phone] Normal [facility] CONSULT PROGon 01-31-2024 CONSULT PROG HNO ID: [id number] Author: EMRE PAGAN APRN.BEAUTY SHOP MANAGER Service: Wound/Ostomy Author Type: Nurse Practitioner Type: Consult Progress Note Filed: 01/31/2024 14:00 Note Text: WOUND CARE SERVICE CONSULT HAND DEICER ELEMENT WINDER NOTE SERVICE DATE: 01/31/2024 SERVICE TIME: 13:27 pm REASON FOR CONSULT: Consultation requested by Diana Foster MD for an opinion regarding abdominal wound - evaluate for vac. My final recommendations will be communicated back to the requesting physician by way of shared Medical record or letter to requesting physician via US mail. CHIEF COMPLAINT: open abdominal wound Subjective HISTORY OF PRESENT ILLNESS: Mr. Allen is a 43 year old male who is seen today with Kylah Blackburn, Wound/sporting goods salesperson, and presented to hospital with complaints of abdominal pain. Patient has recent history of being treated for intussusception secondary to inflammatory mass, he is /sp right hemicolectomy c/b abscess requiring washout and now presenting as direct admit from [place] for secondary abscess formation. He underwent RLQ IR drain placement today. Wound care consulted to assess wound for possible wound vac placement. Dr. Corona, ID, also present in room for wound assessment. PERTINENT REVIEW OF SYSTEMS: GENERAL: alert and oriented male lying in hospital bed PAIN ASSESSMENT: admits to pain to abdomen; rating pain 3/10 SKIN: admits to wound on abdomen RESPIRATORY: denies SOB or cough GI/: denies nausea or vomiting PAST MEDICAL HISTORY Diagnosis Date Diarrhea 12/18/05 Irritable bowel syndrome Irritable bowel PAST SURGICAL HISTORY Procedure Laterality Date PAST SURGICAL HISTORY OF left clavicle repair with plate,2004 SIGMOIDOSCOPY FLX DX W/COLLJ SPEC BR/WA IF PFRMD 2/21/06 Social History Tobacco Use Smoking status: Never Substance Use Topics Alcohol use: No FAMILY HISTORY Problem Relation Age of Onset Diabetes Father Diabetes Maternal Grandfather Cancer Paternal Grandmother Stroke Paternal Grandfather MEDICATIONS: Current Facility-Administered Medications Medication Dose Route Frequency acetaminophen 975 mg tab(s) (TYLENOL) 975 mg ORAL QID morphine 2 mg injection 2 mg INTRAVENOUS q 6 H PRN NaCl 0.9% iv flush bag 20 mL INTRAVENOUS PRN ondansetron 4 mg tab(s) (ZOFRAN) 4 mg ORAL q 6 H PRN Or ondansetron (PF) 4 mg injection (ZOFRAN) 4 mg INTRAVENOUS q 6 H PRN piperacillin-tazobactam iv piggyback 3.375 g in dextrose (iso-osmotic) 50 mL (ZOSYN) 3.375 g INTRAVENOUS q 6 H sodium chloride 0.9 % (flush) 5 mL (BD POSIFLUSH) 5 mL OTHER DAILY traMADol 50-100 mg tab(s) (ULTRAM) 50-100 mg ORAL q 6 H PRN enoxaparin 90 mg injection (LOVENOX) 1 mg/kg/dose SUBCUTANEOUS q 12 HR ALLERGIES No Known Allergies Objective PHYSICAL EXAM: BP 112/73 Pulse 68 Temp 36.6 ?C (97.9 ?F) (Oral) Resp 18 Ht 190.5 cm (6' 3") Wt 93 kg (205 lb 0.4 oz) SpO2 96% BMI 25.63 kg/m? General appearance: alert and oriented male lying in hospital bed Respiratory: no SOB or cough noted Integumentary: open abdominal wound DATA Labs: WBC 13.07 Presenting wound information: Wound 01/31/24 0552 Surgical Wound (dehisced, infected, complication) Abdomen Lower;Medial (Active) Assessments 01/31/2024 1:29 PM Wound Image Site Assessment Red, sutures noted in wound bed with slough ? Fascia in wound bed Manisha-Wound Assessment Intact; approximated incision proximately located to open distal portion Shape 5.7 Wound Length (cm) 5.74 cm Wound Width (cm) 1.9 cm Wound Surface Area (cm2) 10.906 cm2 Wound Depth (cm) 3.5 cm (undermines all around - deepest 0.5cm) Wound Volume (cm3) 38.171 cm3 Drainage Description Warren;Brown;Red Drainage Amount Moderate Odor Mild Treatments Cleansed Dressing Wet to Dry;Abdominal Dressing Dressing Changed New Dressing Status Clean;Dry;Intact Active Orders Date Order Priority Status Authorizing Provider 01/31/24 1238 DRESSING CARE (SPECIFY) ([place]), Surgical Wound (dehisced, infected, complication) Lower;Medial Abdomen Routine Active Diana Foster MD - Specify:: surgical incision Wound Care Plan: Orders Placed This Encounter DRESSING CARE (SPECIFY) ([place]), Surgical Wound (dehisced, infected, complication) Lower;Medial Abdomen Order Comments: Wet to dry dressing changes BID to surgical incision Freq: BID Order Specific Question: Specify: Answer: surgical incision Wound Care will re-evaluate patient on Saturday to see if wound is ready for wound vac. Will hold off applying wound vac currently due to odor and color of drainage. Plan is to do Vashe as WTD all weekend and re-evaluate on Saturday. I spent a total of 35 minutes on the date of the service which included preparing to see the patient, [id number] patient care, completing clinical documentation, obtaining and/or reviewing separately obtained history, performing a medically appropriate examination, and counseling and educating the patient/family/caregiver. Barriers (more content not included)... Normal [facility] CT DRAIN PLACE SFT TISS FLUI D BIon 01-31-[address] SFT TISS FLUID BI * * *Final Report* * * DATE OF EXAM: Jan 31 2024 11:18AM [facility] 2020 - CT DRAIN PLACE SFT TISS FLUID BI / PROCEDURE REASON: Intraabdominal fluid collection * * * * Physician Interpretation * * * * EXAM TITLE: CT GUIDED DRAINAGE OF POSTOPERATIVE RIGHT LOWER QUADRANT ABSCESS DATE: January 31, 2024 at 9:34 AM COMPARISON: Outside CT scan of the abdomen and pelvis from January 30, 2024 CLINICAL INDICATION/HISTORY: The patient is a 43-year-old male with bowel obstruction with intussusception treated with right hemicolectomy complicated by postoperative abscess treated with lavage who now has recurrent fluid collection in the right lower quadrant. CT Radiation dose: Integrated dose-length product (DLP) for this visit = 289.47 mGy*cm. CT Dose Reduction Employed: Automated exposure control (AEC) was used. TECHNIQUE: Informed consent was obtained from the patient. The risks, benefits, and alternatives to the procedure were explained. The patient agrees to the procedure. The patient was evaluated for the safety and appropriateness of conscious sedation and the Moderate Sedation Record was completed. The patient was sedated with intravenous Fentanyl and Versed administered by the trained independent radiology nurse observer. The patient's vital signs were monitored during the procedure by the trained independent radiology nurse observer. Total intra-service work encounter time was approximately 0 hours and 30 minutes. The patient was placed in a supine position and with CT guidance an appropriate skin entrance site was identified, prepped, and anesthetized. A [place] needle was passed into the fluid collection. A tiny amount of fluid was extracted from the fluid collection and then with guidewire exchange and Seldinger technique a 10-Taiwanese 25 cm Skater APDL drainage catheter was deployed and locked in place. Aspiration specimens were sent to microbiology. The drainage catheter was secured to the skin and hooked to a Ashu-Kent suction bulb. There were no apparent complications. The patient was discharged from the radiology department and returned to the care of general surgery. FINDINGS: There is an oval fluid collection in the right lower quadrant. Approximately 12 cc of pus was aspirated and the fluid cavity was decompressed around the pigtail. IMPRESSION: Technically successful CT-guided drainage of right lower quadrant postoperative abscess as described in the body of the report. Business Support Assistant: PSCB Transcribe Date/Time: Jan 31 2024 1:00P Dictated by : CHARLES ORTA MD This examination was interpreted and the report reviewed and electronically signed by: CHARLES ORTA MD on Jan 31 2024 1:03PM EST [id number] Normal [facility] Fungal [facility] [place] 01-30 Fungal susceptibility panel (Isol) ORGANISM ID: 1 Saccharomyces cerevisiae Identification performed by client. ORGANISM ID: 1 (SACCHAROMYCES CEREVISIAE) ANTIBIOTIC INTERPRETATION JUAN CARLOS STATUS REFERENCE RANGE Amphotericin B NI 0.50 F Susceptible <=0 , No Interpretation >0 Juan Carlos: .50 mcg/mL Micafungin NI 0.12 F Susceptible <=0 , No Interpretation >0 Juan Carlos: .12 mcg/mL Fluconazole NI 2 F Susceptible <=0 , No Interpretation >0 Juan Carlos: 2 mcg/mL Normal [facility] Comment on above: Performed By: #### 6 [id number] ####[facility] LABORATORYCLIA [id number] [place] [address] [facility]#### [id number] ####[facility] LABCLIA [id number] [facility] [id number] [place], [place] [id number] [place] HISTORY PHYSICALon HISTORY PHYSICAL HNO ID: [id number] Author: CHARLES ORTA MD Service: Radiology Author Type: Physician Type: H&P Filed: 01/31/2024 09:16 Note Text: UPDATED HISTORY AND PHYSICAL EXAMINATION Date: 01/31/24 Name: Terrie Allen PHYSICAL EXAM MUST BE COMPLETED ON ADMISSION The History and Physical (completed in the past 30 days) has been reviewed and the patient has been examined. The contents accurately reflect the patient's condition with the following additions or revisions since the HANDP was completed. Examination indicates no changes. This HANDP can be found in the Electronic Medical Record dated 01/31/2024 @ 4:39 AM. Normal [facility] NUTRITIONon 01-31-2024 NUTRITION HNO ID: [id number] Author: BRI MYLES RD Service: Nutrition Therapy Author Type: Registered Dietitian Type: Nutrition Filed: 01/31/2024 13:59 Note Text: NUTRITION THERAPY INITIAL ASSESSMENT SERVICE DATE: 01/31/2024 SERVICE TIME: 11:52 am Nutrition Assessment: Recommended Malnutrition Diagnosis: Moderate Protein-Calorie Malnutrition In the context of: Chronic Illness or Injury Based on: Insufficient Energy Intake, Unintentional Weight Loss Nutrition Diagnosis: Problem: Suboptimal protein/energy intake Related to: Altered GI function As evidenced by: Weight loss, Patient/family self-report, Medical condition, Procedure/surgery Estimated kilocalorie needs: 2325 - 2740 kcals Calorie Calculation Method: 25-30 kcals/kg Estimated protein needs (grams): 93 - 140 g Grams protein determined by: 1.0 - 1.5 g/kg Care Plan: Continue regular diet. Please document and encourage intakes at mealtimes. Continue current diet 2. Added Supplements: [place] 1.0 (has not tolerated milk based protein supplements well in the past) Monitor and Evaluation: Meet greater than 75% of estimated needs Discharge Recommendations: Diet;Oral Supplements Diet: Regular or as per primary Oral Supplements: Energy dense oral nutrition supplements 1-2x per day as needed to maintain adequate intakes HPI: This is a 43 year old male admitted with Intraabdominal fluid collection [R18.8] His past medical history includes: PAST MEDICAL HISTORY Diagnosis Date Diarrhea 12/18/05 Irritable bowel syndrome Irritable bowel Of note, patient with complicated course and multiple admissions to [facility] (01/09-01/15 with intestinal intussusception requiring right hemicolectomy, then 01/17-01/29 due to ab abscess and s/p ex lap and washout). He is transferred to [facility] due to new abscess formation. Intake History: Nutrition Intake Prior to Admission: Less than 50% estimated energy needs greater than 7 days (for 3 weeks since initial presentation to [facility] 01/09, prior to this some difficulty with appetite as well due to IBS) Diet Orders (From admission, onward) Start Ordered 01/31/24 1245 DIET SUPPLEMENTS START NOW Question Answer Comment Supplement 1 HILARY [place]ARMS 1.0 CHOCOLATE Supplement 1 Frequency DINNER 01/31/24 1232 01/31/24 1100 DIET REGULAR START NOW 01/31/24 1049 Anthropometrics: Height: 190.5 cm (6' 3") Weight: 93 kg (205 lb 0.4 oz) Dosing Weight: 93 kg (205 lb 0.4 oz) Usual Weight: 98 kg (216 lb) Admission weight at [facility] 01/09 Usual Weight Obtained From: Chart Review Body mass index is 25.63 kg/m?. Weight change percentage over time: loss of 5% over <1 month Weight Change: Clinically signficant weight loss Weight history: Date: Wt: 01/30/2024 93 kg (205 lb 0.4 oz) 11/21/2009 93 kg (205 lb) Per Care Everywhere: 100.4 kg 01/22/24 100.24 kg 01/15/24 98.4 kg 01/10/24 224 lb 05/15/22 Physical Exam: Subcutaneous fat loss: No fat loss Muscle loss: No muscle loss Potential micronutrient deficiency: No deficiency identified Edema/Ascites: No edema GI Symptoms: Anorexia, Abdominal pain Functional Status: Unable to assess Potential Signs of Inflammation: Chronic condition, Leukocytosis, Acute post-operative (abdominal abscess) IBS MNT Billing: $ Initial Assessment: 1-15 minutes SIGNATURE: Bri Myles RD PATIENT NAME: Terrie Allen DATE: January 31, 2024 TIME: 1:53 PM Normal [facility] PT panel Coag (PPP)on 2023 INR Coag (PPP) [Relative time] 1.1 {INR} Normal 0.9-1.3 [facility] Comment on above: Order Comment: Speci men Type: BLOOD SPECIMENOrdering Facility: [facility] Address: [address] [place] [address] Result Comment: Magdalena min K Antagonist (VKA) Therapeutic Range: INR 2 to 3 (Target INR of 2.5) Note: For patients treated with VKA drugs, such as warfarin, the [place] 2012 Guideline recommends a therapeutic INR range of 2 to 3 (target INR of 2.5). This recommendation includes high-risk patients with antiphospholipid syndrome with previous arterial or venous thromboembolism, current-generation mechanical or bioprosthetic aortic heart valve replacement. Note: Patients with mechanical aortic valve replacement and additional risk factors for thromboembolic events (atrial fibrillation, previous thromboembolism, LV dysfunction, hypercoagulable conditions) or an older generation mechanical AVR (i.e., ball in-Cage) or any mechanical MVR should have a INR therapeutic range of 2.5 to 3.5 (target INR of 3). Sotero GH, et al. Chest 2012, 141:7S-47S Shiva RA, et al. [facility] 2017, 70: 252-289 Performed By: #### 3 4528-0 ####[facility] LABORATORYCLIA [id number] [place] [address] [place] PT Coag (PPP) [Time] 11.8 s Normal 9.7-13.0 [facility] Comment on above: Order Comment: Speci men Type: BLOOD SPECIMENOrdering Facility: [facility] Address: [address] [place] [address] Performed By: #### 3 4528-0 ####[facility] LABORATORYCLIA [id number] [place] [address] [place] Absolute lymphocyte countOrd ered By: Ni Alexander on 01-30-2024 Lymphocytes Auto (Unsp spec) [#/Vol] 1.54 10*3/uL 0.83-4.51 [facility] Automated lymphocyte count a s percentage of total leukocytesOrdered By: Ni Alexander on 01-30-2024 Lymphocytes/100 WBC Auto (Unsp spec) 13.7 % 19-41 [facility] Basophil percentageOrdered B y: Ni Alexander on 01-30-2024 Basophil percentage 3.5 mg/dL 2.5-4.9 [facility] Basophils/100 WBC (Bld) 1.2 % 0-1 [facility] Chloride [Moles/Vol] 107 mmol/L 98-107 [facility] Eosinophils/100 WBC (Bld) 4.2 % 0-5 [facility] Glucose [Mass/Vol] 91 mg/dL 74-106 [facility] Hemoglobin (Bld) [Mass/Vol] 11.7 g/dL 13.0-16.5 [facility] Monocytes/100 WBC (Bld) 11.4 % 0-10 [facility] Neutrophils (Bld) [#/Vol] 7.7 10*3/uL 2.0-7.7 [facility] Neutrophils/100 WBC (Bld) 68.5 % 47-70 [facility] Potassium [Moles/Vol] 4.1 mmol/L 3.5-5.1 [facility] Sodium [Moles/Vol] 138 mmol/L 136-145 [facility] WBC (Bld) [#/Vol] 11.2 10*3/uL 4.4-11.0 [facility] Determination of erythrocyte mean corpuscular volume (MCV)Ordered By: Ni Alexander on 01-30-2024 MCV (RBC) [Entitic vol] 86.3 fL 80-94 [facility] Erythrocyte distribution wid th ratioOrdered By: Ni Alexander on 01-30-2024 Erythrocyte distribution width (RBC) [Ratio] 13.3 % 11.6-14.6 [facility] Erythrocyte distribution wid th standard deviationOrdered By: Ni Alexander on 01-30-2024 Erythrocyte distribution width (RBC) [Entitic vol] 41.9 fL 35.1-43.9 [facility] HISTORY PHYSICALon HISTORY PHYSICAL HNO ID: [id number] Author: DIANA FOSTER MD Service: General Surgery Author Type: Physician Type: H&P Filed: 02/05/2024 14:25 Note Text: HISTORY AND PHYSICAL EXAMINATION SERVICE DATE: 01/30/2024 SERVICE TIME: 8:44 PM PRIMARY CARE PHYSICIAN: No primary care provider on file. Subjective CHIEF COMPLAINT: Abdominal Pain HPI: This is a 43 year old male with history of IBS, intussusception 2/2 an inflammatory mass s/P R hemicolectomy c/b abscess requiring a washout now presenting as a direct admission for a second abscess formation. Patient reports he was initially admitted on 01/09 to [facility] for abdominal pain and was found to have the introsusception. He had emergency surgery and recovered well with return of bowel function and DC on 01/15. He then was readmitted with abdominal pain, fevers, and chills 2 days later and was noted to have an abscess. At this time he underwent a second operation for washout. He also had a SSI and had local wound care to the midline incision. He was doing well until today where he had a leukocytosis and repeat CT scan with a second abscess formation. Patient reports some chills. Denies new abdominal pain, fevers, nausea, or vomiting. Continues to have normal bowel function. FUNCTIONAL STATUS: Independent PAST MEDICAL HISTORY Diagnosis Date Diarrhea 12/18/05 Irritable bowel syndrome Irritable bowel PAST SURGICAL HISTORY Procedure Laterality Date PAST SURGICAL HISTORY OF left clavicle repair with plate,2004 SIGMOIDOSCOPY FLX DX W/COLLJ SPEC BR/WA IF PFRMD 12/18/05 FAMILY HISTORY Problem Relation Age of Onset Diabetes Father Diabetes Maternal Grandfather Cancer Paternal Grandmother Stroke Paternal Grandfather Social History Tobacco Use Smoking status: Never Substance Use Topics Alcohol use: No No medications prior to admission. ALLERGIES No Known Allergies COMPLETE REVIEW OF SYSTEMS: CONSTITUTIONAL: chills HEENT: Denies frequent or severe heaches, nasal congestion/sinus symptoms, problematic allergy problems. EYES: No vision changes CARDIOVASCULAR: No chest pain. PULM: No Shortness of Breath. GI: No Nausea, Vomiting, or abdominal pain : No pain with urination or gross hematuria. NEURO: No weakness or numbness of concern. MUSC-SKEL: No new joint pain, swelling, or erythema. Objective PHYSICAL EXAM: Exam: GENERAL: No distress, Alert NEURO: AANDOx3, CN II-XII grossly intact HEENT: normocephalic, atraumatic LUNGS: Unlabored breathing CARDIAC: Regular rate and rhythm as above ABDOMEN: Soft, non-tender, non-distended, midline incision with inferior aspect open with packing, some granulation tissue noted, no obvious purulent drainage, fascia intact EXTREMITIES: ESCALANTE, No deformities, No edema SKIN: Skin color, texture, turgor normal, No rashes or lesions There were no vitals taken for this visit. DATA: Diagnostic tests reviewed for today's visit: Most recent labs and imaging results. Assessment/Plan This is a 43 year old male with history of IBS, intussusception 2/2 an inflammatory mass s/P R hemicolectomy c/b abscess requiring a washout now presenting as a direct admission for a second abscess formation. Intraabdominal abscess s/p R hemicolectomy - Admit to EGS - NPO/IVF - Antibiotics: Zosyn - Plan for IR drain - DVT PPX: Holding LVX until drain placement - Daily labs SSI Present on admission - Continue local wound care with dressing change Emergency General Surgery Service Pager: For questions or concerns Mon-Fri 6a-5p please page [phone]. After 5pm and on Weekends and Holidays, please page [phone] if in ICU or [phone] if on RNF. SIGNATURE: Jodee Gardner MD PATIENT NAME: Terrie Allen DATE: January 30, 2024 TIME: 8:44 PM Emergency General Surgery (EGS) Staff Addendum: Briefly, this is a 43 YO patient presenting as a transfer from OSH for percutaneous drain placement in a postop peritoneal abscess S/P XLAP, R hemicolectomy with ileocolic anastomosis Readmit post discharge for postop peritoneal abscess and underwent repeat XLAP for drainage due to lack of interventional radiology for percutaneous drainage. Now with recurrent peritoneal abscess, transferred for IR drain placement. LMWH treatment of SMV thrombus, identified on postop CT No fevers or chills No hypotension or hypoxia. No N/V, (+) abdominal distension (+) stooling and passing flatus, no melena or BRBPR On exam: Lungs CTAB. CV regular. Abdomen is softly distended, midline wound packed with gauze, no peritonitis, no hernia. 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 Normal [facility] Hematocrit Auto (Bld) [Volum e fraction]Ordered By: Ni Alexander on 01-30-2024 Hematocrit (Bld) [Volume fraction] 37.3 % 40-54 [facility] Immature granulocytes/100 WB C Auto (Bld)Ordered By: Ni Alexander on 01-30-2024 Immature granulocytes/100 WBC (Bld) 1.000 % 0.0-0.9 [facility] Comment on above: IG% - Immature Granu locytes (promyelocytes, myelocytes and metamyelocytes) > 1% indicates that a LEFT SHIFT is Present. Laboratory - Chemistry and C hemistry - challengeOrdered By: Ni Alexander on 01-30-2024 CO2 [Moles/Vol] 25.0 mmol/L 21.0-32.0 [facility] Magnesium [Mass/Vol] 2.2 mg/dL 1.6-2.6 [facility] Urea nitrogen/Creatinine [Mass ratio] 11.7 mg/mg 10-20 [facility] Laboratory - Hematology and Cell countsOrdered By: Ni Alexander on 01-30-2024 MCH (RBC) [Entitic mass] 27.1 pg 27.0-32.0 [facility] MCHC (RBC) [Mass/Vol] 31.4 g/dL 32-36 [facility] Nucleated RBC/100 WBC (Bld) [Ratio] 0 % 0-5 [facility] Platelet mean volume (Bld) [Entitic vol] 9.6 fL 6.2-12.0 [facility] Platelets (Bld) [#/Vol] 659 10*3/uL 150-450 [facility] No Panel InformationOrdered By: Ni Alexander on 01-30-2024 Estimated Creatinine Clearance Calc 83.10 ml/min [facility] Estimated GFR (MDRD) Amer 73 mL/min >60 [facility] Comment on above: GFR Calc Estimated GFR (MDRD) Non-Af Amer 60 mL/min >60 [facility] Comment on above: Non- GFR Calc RBC Auto (Bld) [#/Vol]Ordere d By: Ni Alexander on 01-30-2024 RBC (Bld) [#/Vol] 4.32 10*6/uL 4.6-6.2 [facility] Serum or plasma calcium archie urement (mass/volume)Ordered By: Ni Alexander on 01-30-2024 Calcium [Mass/Vol] 9.4 mg/dL 8.5-10.1 [facility] Serum or plasma creatinine m easurement (mass/volume)Ordered By: Ni Alexander on 01-30-2024 Creatinine [Mass/Vol] 1.37 mg/dL 0.70-1.30 [facility] Comment on above: The validity of the calculated GFR & GFRAA in patients over 70 years has not been determined. Clinical correlation is essential. Serum or plasma urea nitroge n measurement (mass/volume)Ordered By: Ni Alexander on 01-30-2024 Urea nitrogen [Mass/Vol] 16 mg/dL 7-18 [facility] Thin prep Papanicolaou smear with manual screeningOrdered By: Ni Alexander on 01-30-2024 Thin prep Papanicolaou smear with manual screening 6 5-15 [facility] Basophil percentageOrdered B y: Ni Benjamin on 01-28-2024 Bilirubin [Mass/Vol] 0.70 mg/dL 0.20-1.00 [facility] Comment on above: For patients on eltr ombopag therapy, use of Dimension [place] TBIL is not recommended. Protein [Mass/Vol] 6.1 g/dL 6.4-8.2 [facility] Laboratory - Chemistry and C hemistry - challengeOrdered By: Ni Alexander on 01-28-2024 Albumin/Globulin [Mass ratio] 0.6 {ratio} 0.9-2.4 [facility] ALP [Catalytic activity/Vol] 80 U/L 45-117 [facility] ALT [Catalytic activity/Vol] 68 U/L 16-61 [facility] Globulin (S) [Mass/Vol] 3.7 g/dL 2.2-4.2 [facility] Thin prep Papanicolaou smear with manual screeningOrdered By: Ni Alexander on 01-28-2024 Thin prep Papanicolaou smear with manual screening 2.4 g/dL 3.2-5.0 [facility] Thin prep Papanicolaou smear with manual screening 41 U/L 15-37 [facility] Serum or plasma trough vanco mycin levelOrdered By: Ricco García on 01-27-2024 Vancomycin trough [Mass/Vol] 19.8 ug/mL 5.0-15.0 [facility] Comment on above: VANCOMYCIN STANDARED DRUG THERAPY TROUGH LEVEL: 5.0 - 15.0 mg/L VANCOMYCIN HIGH INTENSITY THERAPY TROUGH LEVEL: 15.0 - 20.0 mg/L High Intensity therapy recommended for serious lifethreatening infections include:- Ojclqpqdiw-Nnuiphycwrnd-Ycbuwmdkn (Ventilator/Healtcare Associated)-Sepsis PLEASE CONTACT PHARMACY SERVICES (#[id number]) FOR INTERPRETATIONOF RESULTS. Serum or plasma vancomycin m easurement (mass/volume)Ordered By: Ricco García on 01-25-2024 Vancomycin [Mass/Vol] 15.3 ug/mL 0.0-15.0 [facility] Comment on above: VANCOMYCIN STANDARD DRUG THERAPY: CRITICAL VALUE IS > 15.0 mg/L VANCOMYCIN HIGH INTENSITY THERAPY: CRITICAL VALUE IS > 20.0 mg/L PLEASE CONTACT PHARMACY SERVICES (#[id number]) FOR INTERPRETATIONOF RESULTS. THIS RESULT DOES NOT REPRESENT A PEAK OR TROUGHLEVEL FOR THIS DRUG. Bacteria identified Anaer cx Nom (Unsp spec)Ordered By: Veronica Garner on 01-24-2024 Anaerobic Culture Bacteroides thetaiotaomicron [facility] Bacteria identified Cx Nom ( Wound)Ordered By: Veronica Garner on 01-24-2024 Wound Culture Enterococcus faecalis [facility] Gram stain for investigation of transfusion reactionOrdered By: Veronica Garner on 01-24-2024 Microscopic observation Gram stain Nom (Unsp spec) [facility] Absolute lymphocyte countOrd ered By: Ni Alexander on 01-23-2024 Lymphocytes Auto (Unsp spec) [#/Vol] 1.82 10*3/uL 0.83-4.51 [facility] Automated lymphocyte count a s percentage of total leukocytesOrdered By: Ni Alexander on 01-23-2024 Lymphocytes/100 WBC Auto (Unsp spec) 21.1 % 19-41 [facility] Basophil percentageOrdered B y: Ni Alexander on 01-23-2024 Basophils/100 WBC (Bld) 0.8 % 0-1 [facility] Bilirubin [Mass/Vol] 0.70 mg/dL 0.20-1.00 [facility] Comment on above: For patients on eltr ombopag therapy, use of Dimension [place] TBIL is not recommended. Chloride [Moles/Vol] 107 mmol/L 98-107 [facility] Eosinophils/100 WBC (Bld) 6.0 % 0-5 [facility] Glucose [Mass/Vol] 107 mg/dL 74-106 [facility] Comment on above: Fasting Glucose resu lt from 100 to 125 mg/dL suggests IMPAIRED HOMEOSTASIS per A.D.A. criteria. Hemoglobin (Bld) [Mass/Vol] 10.8 g/dL 13.0-16.5 [facility] Monocytes/100 WBC (Bld) 10.3 % 0-10 [facility] Neutrophils (Bld) [#/Vol] 5.1 10*3/uL 2.0-7.7 [facility] Neutrophils/100 WBC (Bld) 59.8 % 47-70 [facility] Potassium [Moles/Vol] 3.3 mmol/L 3.5-5.1 [facility] Protein [Mass/Vol] 5.5 g/dL 6.4-8.2 [facility] Sodium [Moles/Vol] 141 mmol/L 136-145 [facility] WBC (Bld) [#/Vol] 8.6 10*3/uL 4.4-11.0 [facility] Blood manual differential co mment interpretation (narrative result)Ordered By: Ni Alexander on 01-23-2024 Manual differential comment Fede (Bld) [Interp] SCANNED [facility] Determination of erythrocyte mean corpuscular volume (MCV)Ordered By: Ni Alexander on 01-23-2024 MCV (RBC) [Entitic vol] 86.4 fL 80-94 [facility] Erythrocyte distribution wid th ratioOrdered By: Ni Alexander on 01-23-2024 Erythrocyte distribution width (RBC) [Ratio] 13.0 % 11.6-14.6 [facility] Erythrocyte distribution wid th standard deviationOrdered By: Ni Alexander on 01-23-2024 Erythrocyte distribution width (RBC) [Entitic vol] 40.7 fL 35.1-43.9 [facility] Hematocrit Auto (Bld) [Volum e fraction]Ordered By: Ni Alexander on 01-23-2024 Hematocrit (Bld) [Volume fraction] 33.7 % 40-54 [facility] Immature granulocytes/100 WB C Auto (Bld)Ordered By: Ni Alexander on 01-23-2024 Immature granulocytes/100 WBC (Bld) 2.000 % 0.0-0.9 [facility] Comment on above: IG% - Immature Granu locytes (promyelocytes, myelocytes and metamyelocytes) > 1% indicates that a LEFT SHIFT is Present. Laboratory - Chemistry and C hemistry - challengeOrdered By: Ni Alexander on 01-23-2024 Albumin/Globulin [Mass ratio] 0.6 {ratio} 0.9-2.4 [facility] ALP [Catalytic activity/Vol] 82 U/L 45-117 [facility] ALT [Catalytic activity/Vol] 73 U/L 16-61 [facility] CO2 [Moles/Vol] 29.0 mmol/L 21.0-32.0 [facility] Globulin (S) [Mass/Vol] 3.5 g/dL 2.2-4.2 [facility] Urea nitrogen/Creatinine [Mass ratio] 8.9 mg/mg 10-20 [facility] Laboratory - Hematology and Cell countsOrdered By: Ni Alexander on 01-23-2024 MCH (RBC) [Entitic mass] 27.7 pg 27.0-32.0 [facility] MCHC (RBC) [Mass/Vol] 32.0 g/dL 32-36 [facility] Nucleated RBC/100 WBC (Bld) [Ratio] 0 % 0-5 [facility] Platelet mean volume (Bld) [Entitic vol] 9.1 fL 6.2-12.0 [facility] Platelets (Bld) [#/Vol] 483 10*3/uL 150-450 [facility] No Panel InformationOrdered By: Ni Alexander on 01-23-2024 Estimated Creatinine Clearance Calc 112.71 ml/min [facility] Estimated GFR (MDRD) Amer 103 mL/min >60 [facility] Comment on above: GFR Calc Estimated GFR (MDRD) Non-Af Amer 85 mL/min >60 [facility] Comment on above: Non- GFR Calc RBC Auto (Bld) [#/Vol]Ordere d By: Ni Alexander on 01-23-2024 RBC (Bld) [#/Vol] 3.90 10*6/uL 4.6-6.2 [facility] Serum or plasma calcium archie urement (mass/volume)Ordered By: Ni Alexander on 01-23-2024 Calcium [Mass/Vol] 8.2 mg/dL 8.5-10.1 [facility] Serum or plasma creatinine m easurement (mass/volume)Ordered By: Ni Alexander on 01-23-2024 Creatinine [Mass/Vol] 1.01 mg/dL 0.70-1.30 [facility] Comment on above: The validity of the calculated GFR & GFRAA in patients over 70 years has not been determined. Clinical correlation is essential. Serum or plasma urea nitroge n measurement (mass/volume)Ordered By: Ni Alexander on 01-23-2024 Urea nitrogen [Mass/Vol] 9 mg/dL 7-18 [facility] [facility] Serum or plasma vancomycin m easurement (mass/volume)Ordered By: Ricco García on 01-23-2024 Vancomycin [Mass/Vol] 10.0 ug/mL 0.0-15.0 [facility] Comment on above: VANCOMYCIN STANDARD DRUG THERAPY: CRITICAL VALUE IS > 15.0 mg/L VANCOMYCIN HIGH INTENSITY THERAPY: CRITICAL VALUE IS > 20.0 mg/L PLEASE CONTACT PHARMACY SERVICES (#[id number]) FOR INTERPRETATIONOF RESULTS. THIS RESULT DOES NOT REPRESENT A PEAK OR TROUGHLEVEL FOR THIS DRUG. Thin prep Papanicolaou smear with manual screeningOrdered By: Ni Alexander on 01-23-2024 Thin prep Papanicolaou smear with manual screening 2.0 g/dL 3.2-5.0 [facility] Thin prep Papanicolaou smear with manual screening 55 U/L 15-37 [facility] Thin prep Papanicolaou smear with manual screening 5 5-15 [facility] Basophil percentageOrdered B y: Ni Alexander on 01-22-2024 Basophil percentage 2.6 mg/dL 2.5-4.9 [facility] Laboratory - Chemistry and C hemistry - challengeOrdered By: Ni Alexander on 01-22-2024 Magnesium [Mass/Vol] 2.0 mg/dL 1.6-2.6 [facility] Serum or plasma trough vanco mycin levelOrdered By: Ricco García on 01-22-2024 Vancomycin trough [Mass/Vol] 24.9 ug/mL 5.0-15.0 [facility] Comment on above: VANCOMYCIN STANDARED DRUG THERAPY TROUGH LEVEL: 5.0 - 15.0 mg/L VANCOMYCIN HIGH INTENSITY THERAPY TROUGH LEVEL: 15.0 - 20.0 mg/L High Intensity therapy recommended for serious lifethreatening infections include:- Puvcdncpos-Reidfvnyauxy-Pphvvyprb (Ventilator/Healtcare Associated)-Sepsis PLEASE CONTACT PHARMACY SERVICES (#[id number]) FOR INTERPRETATIONOF RESULTS. Thin prep Papanicolaou smear with manual screeningOrdered By: Ricco García on 01-22-2024 Thin prep Papanicolaou smear with manual screening 79 mg/dL 74-106 [facility] Comment on above: MANAGEMENT OF PATIEN T CARE PER NURSING PROTOCOL Basophil percentageOrdered B y: Ricco García on 01-20-2024 Lactate [Moles/Vol] 1.1 mmol/L 0.4-2.0 [facility] Direct bilirubinOrdered By: Veronica Garner on 01-20-2024 Bilirubin.direct [Mass/Vol] 0.33 mg/dL 0.00-0.30 [facility] Review by pathologistOrdered By: Veronica Garner on 01-20-2024 Pathologist review Fede (Unsp spec) [Interp] Reviewed [facility] Comment on above: Previous reported re sult: Grace mujica Edited by: JIMI on 01/21/24:0851Neutrophilic leukocytosis.Normocytic anemia.Clinical correlation suggested.Bryan Wong D.O. 01/21/24 AMENDED REPORT 01/21/24 0851 PATH REV previously reported as: Grace mujica Bacteria identified Cx Nom ( Wound)Ordered By: Veronica Garner on 01-19-2024 Wound Culture Enterococcus faecalis [facility] Wound Culture Streptococcus group G [facility] Wound Culture Escherichia coli [facility] Wound Culture Pseudomonas aeruginosa [facility] Gram stain for investigation of transfusion reactionOrdered By: Veronica Garner on 01-19-2024 Microscopic observation Gram stain Nom (Unsp spec) [facility] Absolute lymphocyte countOrd ered By: Дмитрий Menjivar on 01-18-2024 Lymphocytes Auto (Unsp spec) [#/Vol] 0.78 10*3/uL 0.83-4.51 [facility] Activated partial thrombopla stin time (aPTT) in platelet poor plasma by coagulation aOrdered By: Nader Miller on 01-18-2024 aPTT Coag (PPP) [Time] 37.2 s 24.1-36.2 [facility] Automated lymphocyte count a s percentage of total leukocytesOrdered By: Дмитрий Menjivar on 01-18-2024 Lymphocytes/100 WBC Auto (Unsp spec) 6.2 % 19-41 [facility] Basophil percentageOrdered B y: Дмитрий Menjivar on 01-18-2024 Basophil percentage 0 SEEN /hpf 0-5 [facility] Basophils/100 WBC (Bld) 0.9 % 0-1 [facility] Bilirubin [Mass/Vol] 1.10 mg/dL 0.20-1.00 [facility] Comment on above: For patients on eltr ombopag therapy, use of Dimension [place] TBIL is not recommended. Chloride [Moles/Vol] 104 mmol/L 98-107 [facility] Eosinophils/100 WBC (Bld) 1.0 % 0-5 [facility] Glucose [Mass/Vol] 114 mg/dL 74-106 [facility] Comment on above: Fasting Glucose resu lt from 100 to 125 mg/dL suggests IMPAIRED HOMEOSTASIS per A.D.A. criteria. Hemoglobin (Bld) [Mass/Vol] 14.0 g/dL 13.0-16.5 [facility] Lactate [Moles/Vol] 1.4 mmol/L 0.4-2.0 [facility] Monocytes/100 WBC (Bld) 8.0 % 0-10 [facility] Neutrophils (Bld) [#/Vol] 10.4 10*3/uL 2.0-7.7 [facility] Neutrophils/100 WBC (Bld) 82.4 % 47-70 [facility] Potassium [Moles/Vol] 4.3 mmol/L 3.5-5.1 [facility] Protein [Mass/Vol] 6.9 g/dL 6.4-8.2 [facility] Sodium [Moles/Vol] 135 mmol/L 136-145 [facility] WBC (Bld) [#/Vol] 12.6 10*3/uL 4.4-11.0 [facility] Bilirubin Test strip Ql (U)O rdered By: Дмитрий Menjivar on 01-18-2024 Bilirubin Ql (U) Negative Negative [facility] Culture, urineOrdered By: Cindy Menjivar on 01-18-2024 Bacteria identified Cx Nom (U) Culture exhibits no growth. [facility] Determination of erythrocyte mean corpuscular volume (MCV)Ordered By: Дмитрий Menjivar on 01-18-2024 MCV (RBC) [Entitic vol] 85.9 fL 80-94 [facility] Erythrocyte distribution wid th ratioOrdered By: Дмитрий Menjivar on 01-18-2024 Erythrocyte distribution width (RBC) [Ratio] 12.5 % 11.6-14.6 [facility] Erythrocyte distribution wid th standard deviationOrdered By: Дмитрий Menjivar on 01-18-2024 Erythrocyte distribution width (RBC) [Entitic vol] 39.0 fL 35.1-43.9 [facility] Hematocrit Auto (Bld) [Volum e fraction]Ordered By: Дмитрий Menjivar on 01-18-2024 Hematocrit (Bld) [Volume fraction] 43.2 % 40-54 [facility] Immature granulocytes/100 WB C Auto (Bld)Ordered By: Дмитрий Menjivar on 01-18-2024 Immature granulocytes/100 WBC (Bld) 1.500 % 0.0-0.9 [facility] Comment on above: IG% - Immature Granu locytes (promyelocytes, myelocytes and metamyelocytes) > 1% indicates that a LEFT SHIFT is Present. Ketones Test strip Ql (U)Ord ered By: Дмитрий Menjivar on 01-18-2024 Ketones Ql (U) 5 mg/dl Negative [facility] Laboratory - Chemistry and C hemistry - challengeOrdered By: Дмитрий Menjivar on 01-18-2024 Albumin/Globulin [Mass ratio] 0.6 {ratio} 0.9-2.4 [facility] ALP [Catalytic activity/Vol] 121 U/L 45-117 [facility] ALT [Catalytic activity/Vol] 124 U/L 16-61 [facility] CO2 [Moles/Vol] 23.0 mmol/L 21.0-32.0 [facility] Globulin (S) [Mass/Vol] 4.2 g/dL 2.2-4.2 [facility] Urea nitrogen/Creatinine [Mass ratio] 9.6 mg/mg 10-20 [facility] Lipase [Catalytic activity/Vol] 29 U/L 13-75 [facility] Comment on above: Please note:LIPASE r evised reference range effective 23. New Lipase methodology. Expected to produce lower values than the previous assay method. NEW Reference Range: 13 - 75 U/L Laboratory - CoagulationOrde red By: Nader Miller on 01-18-2024 INR Coag (Bld) [Relative time] 1.3 {INR} [facility] PT Coag (PPP) [Time] 16.2 s 11.7-14.9 [facility] Laboratory - Hematology and Cell countsOrdered By: Дмитрий Menjivar on 01-18-2024 MCH (RBC) [Entitic mass] 27.8 pg 27.0-32.0 [facility] MCHC (RBC) [Mass/Vol] 32.4 g/dL 32-36 [facility] Nucleated RBC/100 WBC (Bld) [Ratio] 0 % 0-5 [facility] Platelet mean volume (Bld) [Entitic vol] 9.8 fL 6.2-12.0 [facility] Platelets (Bld) [#/Vol] 421 10*3/uL 150-450 [facility] Laboratory - Microbiology an d Antimicrobial susceptibilityOrdered By: Дмитрий Menjivar on 01-18-2024 Bacteria identified Cx Nom (Bld) No growth in 5 days. [facility] Mucus LM Ql (Urine sed)Order ed By: Дмитрий Menjivar on 01-18-2024 Mucus Ql (Urine sed) 0 SEEN /hpf [facility] Nitrite Test strip Ql (U)Ord ered By: Дмитрий Menjivar on 01-18-2024 Nitrite Ql (U) Negative Negative [facility] No Panel InformationOrdered By: Дмитрий Menjivar on 01-18-2024 Urine RBC 0 SEEN /hpf 0-5 [facility] Estimated Creatinine Clearance Calc 124.40 ml/min [facility] Estimated GFR (MDRD) Amer 113 mL/min >60 [facility] Comment on above: GFR Calc Estimated GFR (MDRD) Non-Af Amer 93 mL/min >60 [facility] Comment on above: Non- GFR Calc Protein Test strip Ql (U)Ord ered By: Дмитрий Menjivar on 01-18-2024 Protein Ql (U) 15 mg/dl Negative [facility] RBC Auto (Bld) [#/Vol]Ordere d By: Дмитрий Menjivar on 01-18-2024 RBC (Bld) [#/Vol] 5.03 10*6/uL 4.6-6.2 [facility] Serum or plasma calcium archie urement (mass/volume)Ordered By: Дмитрий Menjivar on 01-18-2024 Calcium [Mass/Vol] 8.9 mg/dL 8.5-10.1 [facility] Serum or plasma creatinine m easurement (mass/volume)Ordered By: Дмитрий Menjivar on 01-18-2024 Creatinine [Mass/Vol] 0.94 mg/dL 0.70-1.30 [facility] Comment on above: The validity of the calculated GFR & GFRAA in patients over 70 years has not been determined. Clinical correlation is essential. Serum or plasma urea nitroge n measurement (mass/volume)Ordered By: Дмитрий Menjivar on 01-18-2024 Urea nitrogen [Mass/Vol] 9 mg/dL 7-18 [facility] Squamous epithelial cells de tection in urine sediment by light microscopyOrdered By: Дмитрий Menjivar on 01-18-2024 Epithelial cells.squamous LM Ql (Urine sed) 0 SEEN /hpf 0-5 [facility] Thin prep Papanicolaou smear with manual screeningOrdered By: Дмитрий Menjivar on 01-18-2024 Thin prep Papanicolaou smear with manual screening 2.7 g/dL 3.2-5.0 [facility] Thin prep Papanicolaou smear with manual screening 92 U/L 15-37 [facility] Thin prep Papanicolaou smear with manual screening 8 5-15 [facility] Urine blood detectionOrdered By: Дмитрий Menjivar on 01-18-2024 RBC Ql (U) Negative Negative [facility] Urine clarityOrdered By: Ayla Menjivar on 01-18-2024 Clarity (U) Clear Clear [facility] Urine color determinationOrd ered By: Дмитрий Menjivar on 01-18-2024 Color (U) Yellow Yellow [facility] Urine glucose detectionOrder ed By: Дмитрий Menjivar on 01-18-2024 Glucose Ql (U) Normal mg/dl Normal [facility] Urine leukocyte esterase det ection by dipstickOrdered By: Дмитрий Menjivar on 01-18-2024 Leukocyte esterase Test strip Ql (U) Negative Negative [facility] Urine pHOrdered By: Дмитрий kidd on 01-18-2024 pH (U) 6.0 [pH] 5.0 - 8.0 [facility] Urine sediment bacteria coun t by microscopy (number/high power field)Ordered By: Дмитрий Menjivar on 01-18-2024 Bacteria LM.HPF (Urine sed) [#/Area] 0 /[HPF] None Seen [facility] Urine specific gravity measu rementOrdered By: Дмитрий Menjivar on 01-18-2024 Specific gravity (U) [Rel density] 1.015 1.002-1.03 0 [facility] Urine urobilinogen measureme ntOrdered By: Дмитрий Menjivar on 01-18-2024 Urobilinogen Ql (U) Normal mg/dl Normal [facility] Stool enteric pathogen panel by probe and target amplification methodOrdered By: Ricco García on 01-17-2024 Gastrointestinal pathogens panel SAVITA+probe (Stl) [facility] Absolute lymphocyte countOrd ered By: Ni Alexander on 01-16-2024 Lymphocytes Auto (Unsp spec) [#/Vol] 1.19 10*3/uL 0.83-4.51 [facility] Automated lymphocyte count a s percentage of total leukocytesOrdered By: Ni Alexander on 01-16-2024 Lymphocytes/100 WBC Auto (Unsp spec) 11.5 % 19-41 [facility] Basophil percentageOrdered B y: Ni Alexander on 01-16-2024 Basophil percentage 2.7 mg/dL 2.5-4.9 [facility] Basophils/100 WBC (Bld) 0.8 % 0-1 [facility] Bilirubin [Mass/Vol] 1.20 mg/dL 0.20-1.00 [facility] Comment on above: For patients on eltr ombopag therapy, use of Dimension [place] TBIL is not recommended. Chloride [Moles/Vol] 108 mmol/L 98-107 [facility] Eosinophils/100 WBC (Bld) 7.9 % 0-5 [facility] Glucose [Mass/Vol] 102 mg/dL 74-106 [facility] Comment on above: Fasting Glucose resu lt from 100 to 125 mg/dL suggests IMPAIRED HOMEOSTASIS per A.D.A. criteria. Hemoglobin (Bld) [Mass/Vol] 11.5 g/dL 13.0-16.5 [facility] Monocytes/100 WBC (Bld) 11.8 % 0-10 [facility] Neutrophils (Bld) [#/Vol] 7.0 10*3/uL 2.0-7.7 [facility] Neutrophils/100 WBC (Bld) 67.5 % 47-70 [facility] Potassium [Moles/Vol] 3.6 mmol/L 3.5-5.1 [facility] Protein [Mass/Vol] 5.8 g/dL 6.4-8.2 [facility] Sodium [Moles/Vol] 141 mmol/L 136-145 [facility] WBC (Bld) [#/Vol] 10.4 10*3/uL 4.4-11.0 [facility] Determination of erythrocyte mean corpuscular volume (MCV)Ordered By: Ni Alexander on 01-16-2024 MCV (RBC) [Entitic vol] 85.3 fL 80-94 [facility] Erythrocyte distribution wid th ratioOrdered By: Ni Alexander on 01-16-2024 Erythrocyte distribution width (RBC) [Ratio] 12.5 % 11.6-14.6 [facility] Erythrocyte distribution wid th standard deviationOrdered By: Ni Alexander on 01-16-2024 Erythrocyte distribution width (RBC) [Entitic vol] 38.5 fL 35.1-43.9 [facility] Hematocrit Auto (Bld) [Volum e fraction]Ordered By: Ni Alexander on 01-16-2024 Hematocrit (Bld) [Volume fraction] 35.4 % 40-54 [facility] Immature granulocytes/100 WB C Auto (Bld)Ordered By: Ni Alexander on 01-16-2024 Immature granulocytes/100 WBC (Bld) 0.500 % 0.0-0.9 [facility] Comment on above: IG% - Immature Granu locytes (promyelocytes, myelocytes and metamyelocytes) > 1% indicates that a LEFT SHIFT is Present. Laboratory - Chemistry and C hemistry - challengeOrdered By: Ni Alexander on 01-16-2024 Albumin/Globulin [Mass ratio] 0.7 {ratio} 0.9-2.4 [facility] ALP [Catalytic activity/Vol] 70 U/L 45-117 [facility] ALT [Catalytic activity/Vol] 44 U/L 16-61 [facility] CO2 [Moles/Vol] 26.0 mmol/L 21.0-32.0 [facility] Globulin (S) [Mass/Vol] 3.5 g/dL 2.2-4.2 [facility] Magnesium [Mass/Vol] 2.1 mg/dL 1.6-2.6 [facility] Urea nitrogen/Creatinine [Mass ratio] 13.2 mg/mg 10-20 [facility] Laboratory - Hematology and Cell countsOrdered By: Ni Alexander on 01-16-2024 MCH (RBC) [Entitic mass] 27.7 pg 27.0-32.0 [facility] MCHC (RBC) [Mass/Vol] 32.5 g/dL 32-36 [facility] Nucleated RBC/100 WBC (Bld) [Ratio] 0 % 0-5 [facility] Platelet mean volume (Bld) [Entitic vol] 11.0 fL 6.2-12.0 [facility] Platelets (Bld) [#/Vol] 290 10*3/uL 150-450 [facility] No Panel InformationOrdered By: Ni Alexander on 01-16-2024 Estimated Creatinine Clearance Calc 140.89 ml/min [facility] Estimated GFR (MDRD) Amer 129 mL/min >60 [facility] Comment on above: GFR Calc Estimated GFR (MDRD) Non-Af Amer 107 mL/min >60 [facility] Comment on above: Non- GFR Calc RBC Auto (Bld) [#/Vol]Ordere d By: Ni Alexander on 01-16-2024 RBC (Bld) [#/Vol] 4.15 10*6/uL 4.6-6.2 [facility] Serum or plasma calcium archie urement (mass/volume)Ordered By: Ni Alexander on 01-16-2024 Calcium [Mass/Vol] 8.5 mg/dL 8.5-10.1 [facility] Serum or plasma creatinine m easurement (mass/volume)Ordered By: Ni Alexander on 01-16-2024 Creatinine [Mass/Vol] 0.83 mg/dL 0.70-1.30 [facility] Comment on above: The validity of the calculated GFR & GFRAA in patients over 70 years has not been determined. Clinical correlation is essential. Serum or plasma urea nitroge n measurement (mass/volume)Ordered By: Ni Alexander on 01-16-2024 Urea nitrogen [Mass/Vol] 11 mg/dL 7-18 [facility] Thin prep Papanicolaou smear with manual screeningOrdered By: Ni Alexander on 01-16-2024 Thin prep Papanicolaou smear with manual screening 2.3 g/dL 3.2-5.0 [facility] Thin prep Papanicolaou smear with manual screening 85 U/L 15-37 [facility] Thin prep Papanicolaou smear with manual screening 7 5-15 [facility] Bacteria identified Anaer cx Nom (Unsp spec)Ordered By: Ni Alexander on 01-15-2024 Anaerobic Culture Bacteroides fragilis [facility] Anaerobic Culture Actinomyces naeslundii [facility] Bacteria identified Cx Nom ( Wound)Ordered By: Ni Alexander on 01-15-2024 Wound Culture Enterococcus faecalis [facility] Wound Culture Pseudomonas aeruginosa [facility] Gram stain for investigation of transfusion reactionOrdered By: Ni Alexander on 01-15-2024 Microscopic observation Gram stain Nom (Unsp spec) [facility] Absolute lymphocyte countOrd ered By: Ni Alexander on 01-14-2024 Lymphocytes Auto (Unsp spec) [#/Vol] 0.90 10*3/uL 0.83-4.51 [facility] Automated lymphocyte count a s percentage of total leukocytesOrdered By: Ni Alexander on 01-14-2024 Lymphocytes/100 WBC Auto (Unsp spec) 6.9 % 19-41 [facility] Basophil percentageOrdered B y: Ni Alexander on 01-14-2024 Basophil percentage 1.6 mg/dL 2.5-4.9 [facility] Basophils/100 WBC (Bld) 0.4 % 0-1 [facility] Bilirubin [Mass/Vol] 2.50 mg/dL 0.20-1.00 [facility] Comment on above: For patients on eltr ombopag therapy, use of Dimension [place] TBIL is not recommended. Chloride [Moles/Vol] 108 mmol/L 98-107 [facility] Eosinophils/100 WBC (Bld) 1.4 % 0-5 [facility] Glucose [Mass/Vol] 131 mg/dL 74-106 [facility] Comment on above: Fasting Glucose resu lt greater than or equal to 126 mg/dL suggests DIABETES MELLITUS per A.D.A. criteria. Hemoglobin (Bld) [Mass/Vol] 11.4 g/dL 13.0-16.5 [facility] Monocytes/100 WBC (Bld) 10.8 % 0-10 [facility] Neutrophils (Bld) [#/Vol] 10.4 10*3/uL 2.0-7.7 [facility] Neutrophils/100 WBC (Bld) 80.0 % 47-70 [facility] Potassium [Moles/Vol] 3.4 mmol/L 3.5-5.1 [facility] Protein [Mass/Vol] 5.6 g/dL 6.4-8.2 [facility] Sodium [Moles/Vol] 137 mmol/L 136-145 [facility] WBC (Bld) [#/Vol] 13.0 10*3/uL 4.4-11.0 [facility] Determination of erythrocyte mean corpuscular volume (MCV)Ordered By: Ni Alexander on 01-14-2024 MCV (RBC) [Entitic vol] 86.1 fL 80-94 [facility] Erythrocyte distribution wid th ratioOrdered By: Ni Alexander on 01-14-2024 Erythrocyte distribution width (RBC) [Ratio] 12.3 % 11.6-14.6 [facility] Erythrocyte distribution wid th standard deviationOrdered By: Ni Alexander on 01-14-2024 Erythrocyte distribution width (RBC) [Entitic vol] 38.7 fL 35.1-43.9 [facility] Hematocrit Auto (Bld) [Volum e fraction]Ordered By: Ni Alexander on 01-14-2024 Hematocrit (Bld) [Volume fraction] 34.8 % 40-54 [facility] Immature granulocytes/100 WB C Auto (Bld)Ordered By: Ni Alexander on 01-14-2024 Immature granulocytes/100 WBC (Bld) 0.500 % 0.0-0.9 [facility] Comment on above: IG% - Immature Granu locytes (promyelocytes, myelocytes and metamyelocytes) > 1% indicates that a LEFT SHIFT is Present. Laboratory - Chemistry and C hemistry - challengeOrdered By: Ni Alexander on 01-14-2024 Albumin/Globulin [Mass ratio] 0.8 {ratio} 0.9-2.4 [facility] ALP [Catalytic activity/Vol] 62 U/L 45-117 [facility] ALT [Catalytic activity/Vol] 20 U/L 16-61 [facility] CO2 [Moles/Vol] 26.0 mmol/L 21.0-32.0 [facility] Globulin (S) [Mass/Vol] 3.2 g/dL 2.2-4.2 [facility] Urea nitrogen/Creatinine [Mass ratio] 13.5 mg/mg 10-20 [facility] Laboratory - Hematology and Cell countsOrdered By: Ni Alexander on 01-14-2024 MCH (RBC) [Entitic mass] 28.2 pg 27.0-32.0 [facility] MCHC (RBC) [Mass/Vol] 32.8 g/dL 32-36 [facility] Nucleated RBC/100 WBC (Bld) [Ratio] 0 % 0-5 [facility] Platelet mean volume (Bld) [Entitic vol] 10.1 fL 6.2-12.0 [facility] Platelets (Bld) [#/Vol] 219 10*3/uL 150-450 [facility] No Panel InformationOrdered By: Ni Alexander on 01-14-2024 Estimated Creatinine Clearance Calc 105.35 ml/min [facility] Estimated GFR (MDRD) Amer 93 mL/min >60 [facility] Comment on above: GFR Calc Estimated GFR (MDRD) Non-Af Amer 77 mL/min >60 [facility] Comment on above: Non- GFR Calc RBC Auto (Bld) [#/Vol]Ordere d By: Ni Alexander on 01-14-2024 RBC (Bld) [#/Vol] 4.04 10*6/uL 4.6-6.2 [facility] Serum or plasma calcium archie urement (mass/volume)Ordered By: Ni Alexander on 01-14-2024 Calcium [Mass/Vol] 8.1 mg/dL 8.5-10.1 [facility] Serum or plasma creatinine m easurement (mass/volume)Ordered By: Ni Alexander on 01-14-2024 Creatinine [Mass/Vol] 1.11 mg/dL 0.70-1.30 [facility] Comment on above: The validity of the calculated GFR & GFRAA in patients over 70 years has not been determined. Clinical correlation is essential. Serum or plasma urea nitroge n measurement (mass/volume)Ordered By: Ni Alexander on 01-14-2024 Urea nitrogen [Mass/Vol] 15 mg/dL 7- [facility] Thin prep Papanicolaou smear with manual screeningOrdered By: Ni Alexander on 01-14-2024 Thin prep Papanicolaou smear with manual screening 2.4 g/dL 3.2-5.0 [facility] Thin prep Papanicolaou smear with manual screening 29 U/L 1537 [facility] Thin prep Papanicolaou smear with manual screening 3 5-15 [facility] Laboratory - Chemistry and C hemistry - challengeOrdered By: Ricco García on 01-13-2024 Magnesium [Mass/Vol] 2.0 mg/dL 1.6-2.6 [facility] Direct bilirubinOrdered By: Ricco García on 01-12-2024 Bilirubin.direct [Mass/Vol] 0.36 mg/dL 0.00-0.30 [facility] Absolute lymphocyte countOrd ered By: ED PROVIDER on 01-10-2024 Lymphocytes Auto (Unsp spec) [#/Vol] 1.99 10*3/uL 0.83-4.51 [facility] Automated lymphocyte count a s percentage of total leukocytesOrdered By: ED PROVIDER on 01-10-2024 Lymphocytes/100 WBC Auto (Unsp spec) 21.0 % 19-41 [facility] Basophil percentageOrdered B y: Kevin York on 01-10-2024 Lactate [Moles/Vol] 1.1 mmol/L 0.4-2.0 [facility] Basophil percentageOrdered B y: ED PROVIDER on 01-10-2024 Basophils/100 WBC (Bld) 1.1 % 0-1 [facility] Bilirubin [Mass/Vol] 1.70 mg/dL 0.20-1.00 [facility] Comment on above: For patients on eltr ombopag therapy, use of Dimension [place] TBIL is not recommended. Chloride [Moles/Vol] 107 mmol/L 98-107 [facility] Eosinophils/100 WBC (Bld) 4.5 % 0-5 [facility] Glucose [Mass/Vol] 108 mg/dL 74-106 [facility] Comment on above: Fasting Glucose resu lt from 100 to 125 mg/dL suggests IMPAIRED HOMEOSTASIS per A.D.A. criteria. Hemoglobin (Bld) [Mass/Vol] 15.8 g/dL 13.0-16.5 [facility] Monocytes/100 WBC (Bld) 11.4 % 0-10 [facility] Neutrophils (Bld) [#/Vol] 5.8 10*3/uL 2.0-7.7 [facility] Neutrophils/100 WBC (Bld) 61.6 % 47-70 [facility] Potassium [Moles/Vol] 3.8 mmol/L 3.5-5.1 [facility] Protein [Mass/Vol] 7.5 g/dL 6.4-8.2 [facility] Sodium [Moles/Vol] 141 mmol/L 136-145 [facility] WBC (Bld) [#/Vol] 9.5 10*3/uL 4.4-11.0 [facility] Clostridioides difficile nuc leic acid assay by PCROrdered By: Kevin York on 01-10-2024 C. difficile DNA SAVITA+probe Ql (Unsp spec) [facility] Determination of erythrocyte mean corpuscular volume (MCV)Ordered By: ED PROVIDER on 01-10-2024 MCV (RBC) [Entitic vol] 84.2 fL 80-94 [facility] Erythrocyte distribution wid th ratioOrdered By: ED PROVIDER on 01-10-2024 Erythrocyte distribution width (RBC) [Ratio] 12.0 % 11.6-14.6 [facility] Erythrocyte distribution wid th standard deviationOrdered By: ED PROVIDER on 01-10-2024 Erythrocyte distribution width (RBC) [Entitic vol] 36.4 fL 35.1-43.9 [facility] Hematocrit Auto (Bld) [Volum e fraction]Ordered By: ED PROVIDER on 01-10-2024 Hematocrit (Bld) [Volume fraction] 47.5 % 40-54 [facility] Immature granulocytes/100 WB C Auto (Bld)Ordered By: ED PROVIDER on 01-10-2024 Immature granulocytes/100 WBC (Bld) 0.400 % 0.0-0.9 [facility] Comment on above: IG% - Immature Granu locytes (promyelocytes, myelocytes and metamyelocytes) > 1% indicates that a LEFT SHIFT is Present. Laboratory - Chemistry and C hemistry - challengeOrdered By: ED PROVIDER on 01-10-2024 Albumin/Globulin [Mass ratio] 1.2 {ratio} 0.9-2.4 [facility] ALP [Catalytic activity/Vol] 90 U/L 45-117 [facility] ALT [Catalytic activity/Vol] 34 U/L 16-61 [facility] CO2 [Moles/Vol] 30.0 mmol/L 21.0-32.0 [facility] Globulin (S) [Mass/Vol] 3.4 g/dL 2.2-4.2 [facility] Urea nitrogen/Creatinine [Mass ratio] 16.4 mg/mg 10-20 [facility] Laboratory - Hematology and Cell countsOrdered By: ED PROVIDER on 01-10-2024 MCH (RBC) [Entitic mass] 28.0 pg 27.0-32.0 [facility] MCHC (RBC) [Mass/Vol] 33.3 g/dL 32-36 [facility] Nucleated RBC/100 WBC (Bld) [Ratio] 0 % 0-5 [facility] Platelet mean volume (Bld) [Entitic vol] 10.2 fL 6.2-12.0 [facility] Platelets (Bld) [#/Vol] 290 10*3/uL 150-450 [facility] No Panel InformationOrdered By: ED PROVIDER on 01-10-2024 Estimated Creatinine Clearance Calc 103.49 ml/min [facility] Estimated GFR (MDRD) Amer 94 mL/min >60 [facility] Comment on above: GFR Calc Estimated GFR (MDRD) Non-Af Amer 77 mL/min >60 [facility] Comment on above: Non- GFR Calc Ova and parasitesOrdered By: Kevin York on 01-10-2024 Ova and parasites identified LM Nom (Unsp spec) [facility] RBC Auto (Bld) [#/Vol]Ordere d By: ED PROVIDER on 01-10-2024 RBC (Bld) [#/Vol] 5.64 10*6/uL 4.6-6.2 [facility] Serum or plasma calcium archie urement (mass/volume)Ordered By: ED PROVIDER on 01-10-2024 Calcium [Mass/Vol] 9.6 mg/dL 8.5-10.1 [facility] Serum or plasma creatinine m easurement (mass/volume)Ordered By: ED PROVIDER on 01-10-2024 Creatinine [Mass/Vol] 1.10 mg/dL 0.70-1.30 [facility] Comment on above: The validity of the calculated GFR & GFRAA in patients over 70 years has not been determined. Clinical correlation is essential. Serum or plasma urea nitroge n measurement (mass/volume)Ordered By: ED PROVIDER on 01-10-2024 Urea nitrogen [Mass/Vol] 18 mg/dL 7-18 [facility] Stool enteric pathogen panel by probe and target amplification methodOrdered By: Kevin York on 01-10-2024 Gastrointestinal pathogens panel SAVITA+probe (Stl) [facility] Stool lactoferrin detection by immunoassayOrdered By: Kevin York on 01-10-2024 Lactoferrin IA Ql (Stl) [facility] Thin prep Papanicolaou smear with manual screeningOrdered By: ED PROVIDER on 01-10-2024 Thin prep Papanicolaou smear with manual screening 4.1 g/dL 3.2-5.0 [facility] Thin prep Papanicolaou smear with manual screening 20 U/L 15-37 [facility] Thin prep Papanicolaou smear with manual screening 4 5-15 [facility] Stool enteric pathogen panel by probe and target amplification methodOrdered By: Marcellus Oakes on 12-18-2023 Gastrointestinal pathogens panel SAVITA+probe (Stl) [facility] Stool pancreatic elastase me asurement (mass/mass)Ordered By: Marcellus Oakes on 12-18-2023 Elastase.pancreatic (Stl) [Mass/Mass] 228 >200 [facility] Comment on above: Result Units: ug Helene st./g Severe Pancreatic Insufficiency: <100 Moderate Pancreatic Insufficiency: 100 - 200 Normal: >200Performed at: - [facility] [id number] Director: Juno Rashid MD, Phone: [phone] Absolute lymphocyte countOrd ered By: Marcellus Ranney on 12-16-2023 Lymphocytes Auto (Unsp spec) [#/Vol] 1.95 10*3/uL 0.83-4.51 [facility] Automated lymphocyte count a s percentage of total leukocytesOrdered By: Marcellus Oakes on 12-16-2023 Lymphocytes/100 WBC Auto (Unsp spec) 19.5 % 19-41 [facility] Basophil percentageOrdered B y: Marcellus Oakes on 12-16-2023 Basophils/100 WBC (Bld) 0.8 % 0-1 [facility] Bilirubin [Mass/Vol] 1.10 mg/dL 0.20-1.00 [facility] Comment on above: For patients on eltr ombopag therapy, use of Dimension [place] TBIL is not recommended. Chloride [Moles/Vol] 107 mmol/L 98-107 [facility] Eosinophils/100 WBC (Bld) 5.7 % 0-5 [facility] Glucose [Mass/Vol] 99 mg/dL 74-106 [facility] Hemoglobin (Bld) [Mass/Vol] 15.4 g/dL 13.0-16.5 [facility] Monocytes/100 WBC (Bld) 8.6 % 0-10 [facility] Neutrophils (Bld) [#/Vol] 6.5 10*3/uL 2.0-7.7 [facility] Neutrophils/100 WBC (Bld) 65.0 % 47-70 [facility] Potassium [Moles/Vol] 4.2 mmol/L 3.5-5.1 [facility] Protein [Mass/Vol] 7.2 g/dL 6.4-8.2 [facility] Sodium [Moles/Vol] 139 mmol/L 136-145 [facility] WBC (Bld) [#/Vol] 10.0 10*3/uL 4.4-11.0 [facility] Determination of erythrocyte mean corpuscular volume (MCV)Ordered By: Marcellus Oakes on 12-16-2023 MCV (RBC) [Entitic vol] 85.8 fL 80-94 [facility] Erythrocyte distribution wid th ratioOrdered By: Marcellus Oakes on 12-16-2023 Erythrocyte distribution width (RBC) [Ratio] 12.0 % 11.6-14.6 [facility] Erythrocyte distribution wid th standard deviationOrdered By: Marcellus Oakes on 12-16-2023 Erythrocyte distribution width (RBC) [Entitic vol] 37.7 fL 35.1-43.9 [facility] Erythrocyte sedimentation ra teOrdered By: Marcellus Oakes on 12-16-2023 ESR (Bld) [Velocity] 8 mm[facility]h 0[facility]20 [facility] Hematocrit Auto (Bld) [Volum e fraction]Ordered By: Marcellus Oakes on 12-16-2023 Hematocrit (Bld) [Volume fraction] 47.2 % 40-54 [facility] Immature granulocytes/100 WB C Auto (Bld)Ordered By: Marcellus Oakes on 12-16-2023 Immature granulocytes/100 WBC (Bld) 0.400 % 0.0-0.9 [facility] Comment on above: IG% - Immature Granu locytes (promyelocytes, myelocytes and metamyelocytes) > 1% indicates that a LEFT SHIFT is Present. Laboratory - Chemistry and C hemistry - challengeOrdered By: Marcellus Oakes on 12-16-2023 Albumin/Globulin [Mass ratio] 1.2 {ratio} 0.9-2.4 [facility] ALP [Catalytic activity/Vol] 76 U/L 45-117 [facility] ALT [Catalytic activity/Vol] 36 U/L 16-61 [facility] CO2 [Moles/Vol] 30.0 mmol/L 21.0-32.0 [facility] Globulin (S) [Mass/Vol] 3.3 g/dL 2.2-4.2 [facility] Urea nitrogen/Creatinine [Mass ratio] 18.8 mg/mg 10-20 [facility] Laboratory - Hematology and Cell countsOrdered By: Marcellus Oakes on 12-16-2023 MCH (RBC) [Entitic mass] 28.0 pg 27.0-32.0 [facility] MCHC (RBC) [Mass/Vol] 32.6 g/dL 32-36 [facility] Nucleated RBC/100 WBC (Bld) [Ratio] 0 % 0-5 [facility] Platelet mean volume (Bld) [Entitic vol] 10.7 fL 6.2-12.0 [facility] Platelets (Bld) [#/Vol] 312 10*3/uL 150-450 [facility] No Panel InformationOrdered By: Marcellus Oakes on 12-16-2023 Anti-Gliadin IgA Antibody 11 units 0-19 [facility] Comment on above: Negative 0 - 19 Weak Positive 20 - 30 Moderate to Strong Positive >30 Anti-Gliadin IgG Antibody 5 units 0-19 [facility] Comment on above: Negative 0 - 19 Weak Positive 20 - 30 Moderate to Strong Positive >30 Endomysial IgA Antibody Negative Negative [facility] Estimated GFR (MDRD) Amer 92 mL/min >60 [facility] Comment on above: GFR Calc Estimated GFR (MDRD) Non-Af Amer 76 mL/min >60 [facility] Comment on above: Non- GFR Calc Immunoglobulin A 193 mg/dL 90-386 [facility] Comment on above: Performed at: [address] Director: Alfred Fischer PhD, Phone: [phone] Tissue Transglutaminase IgG Ab 2 U/mL 0-5 [facility] Comment on above: Negative 0 - 5 Weak Positive 6 - 9 Positive >9 RBC Auto (Bld) [#/Vol]Ordere d By: Marcellus Oakes on 12-16-2023 RBC (Bld) [#/Vol] 5.50 10*6/uL 4.6-6.2 [facility] Serum or plasma calcium archie urement (mass/volume)Ordered By: Marcellus Oakes on 12-16-2023 Calcium [Mass/Vol] 9.2 mg/dL 8.5-10.1 [facility] Serum or plasma creatinine m easurement (mass/volume)Ordered By: Marcellus Oakes on 12-16-2023 Creatinine [Mass/Vol] 1.12 mg/dL 0.70-1.30 [facility] Comment on above: The validity of the calculated GFR & GFRAA in patients over 70 years has not been determined. Clinical correlation is essential. Serum or plasma thyroid stim ulating hormone (TSH) measurement (units/volume)Ordered By: Marcellus Oakes on 12-16-2023 TSH Qn 0.66 uIU/mL 0.358-3.74 [facility] Serum or plasma urea nitroge n measurement (mass/volume)Ordered By: Marcellus Oakes on 12-16-2023 Urea nitrogen [Mass/Vol] 21 mg/dL 7-18 [facility] Serum tissue transglutaminas e IgA antibody assay (units/volume)Ordered By: Marcellus Oakes on 12-16-2023 tTG IgA Qn (S) <2 U/mL 0-3 [facility] Comment on above: Negative 0 - 3 Weak Positive 4 - 10 Positive >10 Tissue Transglutaminase (tTG) has been identified as the endomysial antigen. Studies have demonstr- ated that endomysial IgA antibodies have over 99% specificity for gluten sensitive enteropathy. Thin prep Papanicolaou smear with manual screeningOrdered By: Marcellus Oakes on 12-16-2023 Thin prep Papanicolaou smear with manual screening 3.9 g/dL 3.2-5.0 [facility] Thin prep Papanicolaou smear with manual screening 19 U/L 15-37 [facility] Thin prep Papanicolaou smear with manual screening 2 5-15 [facility] Falls Screening (Age 18+)on 05-15-2022 Fall risk assessment a) No falls within the last year [facility] Work Phone: Tobacco use status CPHS b) No [facility] Work Phone: Post Op (General Surgery)on 05-15-2022 Post Op (General Surgery) Diagnoses/Problems Inguinal hernia (550.90) (K40.90) Provider Impressions Wound care and activity restrictions are discussed. He will return to clinic on a as needed basis. We discussed the signs symptoms of infection or spitting a suture. All questions were answered. Chief Complaint Post op #1 LIH. Denies fever, chills and nausea. Denies drainage or redness. History of Present IllnessPatient is seen in postop follow-up status post inguinal hernia repair. He states the bruising has essentially resolved and he still has some minor swelling. He states he really took no pain medicine. He is still limiting his activity. He states it feels better now than it did preop Review of Systems No chest pain or shortness of Active Problems Inguinal hernia (550.90) (K40.90) Surgical History History of Ankle surgery History of Clavicle fracture repair History of Colonoscopy History of Inguinal hernia repair Managed By: Tony Saleh (General Surgery) Left inguinal hernia Family History Family history of diabetes mellitus (V18.0) (Z83.3) Family history of diabetes mellitus (V18.0) (Z83.3) Social History Denies alcohol consumption (V49.89) (Z78.9) Non-smoker (V49.89) (Z78.9) Allergies No Known Drug Allergies Recorded By: Sheila Del Rosario; 04/20/2022 3:37:37 PM Current Meds Medication NameInstruction No Reported Medications Vitals Vital Signs Recorded: [id number] 03:31PM Heart Rate80 Qzhiwhwm866 Bvndkhnia29 Height6 ft 3 in Kobvkf178 lb 8 oz BMI Ydljuzlakt28.06 kg/m2 BSA Calculated2.3 Tobacco Useb) No Falls Screening (Age 18+)a) No falls within the last year Physical Exam Constitutional - General appearance: In no acute distress, well appearing and well nourished. Eyes - Anicteric. Pulmonary - Respiratory effort: Normal respiration. Cardiovascular - Regular rate. Abdomen - Soft and nontender. Incision without cellulitis. There is a mild to moderate healing ridge. There is some residual ecchymosis. Musculoskeletal - No edema. Neurologic - Nonfocal. Psychiatric - Appropriate. Signatures Electronically signed by : Tony Saleh MD; May 15 2022 6:05PM EST (Author) Normal [facility] Order Reconciliationon 05-03 Order Reconciliation Page 1 Discharge Reconciliation Document Reconciliation Type: Discharge requested on behalf of Tony Saleh (Physician) done by Tony Saleh) Discharge - Reconciliation: 03-May-2022 14:06 by: Tony Salhe) Current OrdersDateHOME MEDICATIONS AT DISCHARGE DateReconciliation Comment/ Additional Information HYDROmorphone Injectable (DILAUDID)DOSE = 0.4 mg IntraVenous Push Every 5 Minutes, PRN Pain - Severe (7-10) (PACU)Clinician Notes: Manisha-operative order ONLYMax total of 4 mg regardless of dose. 02-May-2022 15:56 HYDROmorphone Injectable is not required Lactated Ringers Infusion IV Bag Volume = 1,000 mL Run at: 100 mL/hr IntraVenous Clinician Notes: Manisha-operative order ONLY 02-May-2022 15:56 Lactated Ringers Infusion is not required Lactated Ringers Infusion IV Bag Volume = 1,000 mL Run at: 100 mL/hr IntraVenous 02-May-2022 19:26 Lactated Ringers Infusion is not required Metoclopramide Injectable (REGLAN)DOSE = 10 mg IntraVenous Push Once, PRN persistent PONV if first line ineffectiveClinician Notes: Manisha-operative order ONLY 02-May-2022 15:56 Metoclopramide Injectable is not required Midazolam Injectable (VERSED)DOSE = 2 mg IntraVenous Push Once, PRN AnxietyClinician Notes: Manisha-operative order ONLY 02-May-2022 15:56 Midazolam Injectable is not required oxyCODONE Immediate Release Tablet (OXYIR, ROXICODONE)DOSE = 5 mg Oral Once, PRN Pain - Mild (1-3) (PACU) when able to take OralClinician Notes: Manisha-operative order ONLY 02-May-2022 15:56 oxyCODONE Immediate Release is not required Promethazine IV Piggy Back in Sodium Chloride 0.9% 50 mL (PHENERGAN)DOSE = 6.25 mg Once, PRN PONV, first lineRecommended Infusion Time: 15 minute(s)Clinician Notes: Manisha-operative order ONLY 02-May-2022 15:56 Promethazine IV Piggy Back is not required Home Medications Added During Discharge Reconciliation Activity as Tolerated 03-May-2022, Routine, Assistance Level: None, Restrictions: None, Limit your activities and rest today. Additional Patient Instructions Do not engage in sports, heavy work or lifting greater than 20 pounds for 3 weeks Additional Patient Instructions Do not remove steri strips, they will fall off on their own. Additional Patient Instructions May take alternating tylenol and motrin for discomfort as discussed. If necessary, may take oxycodone as ordered Additional Patient Instructions Remove Dressing in 2 days Call Physician For: excessive bleeding (slow general oozing that completely soaks dressing or fresh bright red bleeding) or bleeding that will not stop. Apply pressure to the area and elevate. Call Physician For: persistant nausea and/or vomiting Over 24 hours Call Physician For: signs and sypmtoms of infection Increased redness or swelling at incision site, increased pain/tenderness at surgical site, increased temperature greater than 100 degress, increasing and/or progressive drainage from surgical site, and/or unusual odor from surgical site. Diet Regular Discharge Discharge Diagnosis< K40.90 Inguinal hernia, left Discharge Provider, Tony Saleh Discharge Disposition : .Home Condition at Discharge: Satisfactory Discharge Communication Instructions for Nursing Only: Remove IV prior to discharge from hospital. Do not remove any midline, if present, without an order from the provider. Discharge Instructions - PHR After your discharge from the hospital, two Summary of Care Documents will be available online in your Personal Health Record (PHR). 1.Consolidated-Clinical Document Architecture (C-CDA) Patient Discharge Summary This document is a summary of your hospital stay to be kept for your reference.2.C-CDA Visit Summary This document is a summary of your hospital stay to be shared with your follow-up providers (doctor, fluoroscope operator, physical therapist, etc.). Follow Up with [facility] in 2 Weeks May shower oxyCODONE 5 mg oral tablet 1 tab(s) orally every 6 hours, As Needed -for pain Post Procedure Discharge Criteria Criteria: Easily arousable / responding appropriately; Significant complications are absent; SpO2 = or > 92%, or if SpO2 < 92%, maintains within 2% of baseline; Vital signs +/- 20% of preprocedure status; Ambulates without dizziness / age appropriate activity and ambulatory status returns to pre-procedure baseline. All Active Home Medications at time of Discharge Reconciliation: 03-May-2022 14:06 Activity as Tolerated 03-May-2022, Routine, Assistance Level: None, Restrictions: None, Limit your activities and rest today. Additional Patient Instructions Do not engage in sports, heavy work or lifting greater than 20 pounds for 3 weeks Additional Patient Instructions Do not remove steri strips, they will fall off on their own. Additional Patient Instructions May take alternating tylenol and motrin for discomfort as discussed. If necessary, may take oxycodone as (more content not included)... Normal [facility] Surgical Pathology Depar tmenton 05-03-2022 [facility] Surgical Pathology Department Name TERRIE ALLEN Pathologist: NINFA AVITIA DO Date of Procedure: 05/03/2022 Date Received: 05/04/2022 Date Reported 05/10/2022 Submitting Physician: TONY SALEH MD Location: [facility] Copy To/Referring/Attending: TONY SALEH MD Other External # FINAL DIAGNOSIS A. LEFT CORD LIPOMA \\E AND E\\ HERNIA SAC: -- BENIGN FIBROCONNECTIVE AND FIBROADIPOSE TISSUE WITH A MESOTHELIAL LINING, CONSISTENT WITH HERNIA SAC. -- MATURE ADIPOSE TISSUE CONSISTENT WITH LIPOMA. Final interpretation performed at: [facility] Department of Pathology [address] [place] [address] Electronically Signed Out By NINFA AVITIA DO/MARIA ELENA By the signature on this report, the individual or group listed as making the Final Interpretation/Diagnosis certifies that they have reviewed this case. [place] [address] Clinical History: Physician Contact Number: [phone] Fixative (A): Formalin Clinical Diagnosis History UNILATERAL INGUINAL HERNIA LEFT Specimens Submitted As: A: LEFT CORD LIPOMA \\E AND E\\ HERNIA SAC Gross Description: Received in formalin, labeled with the patient's name and hospital number and left cord lipoma and hernia sac", are multiple segments of yellow fibroadipose soft tissue aggregating to 8.0 x 2.0 x 1.0 cm with the adipose tissue weighing 4.9 grams. The adipose portion of the specimen is inked black. Serial cross sections reveal a yellow homogeneous cut surface. Field Contact Person sections are submitted in 5 cassettes. [facility] Summary of Cassettes: Specimen Label Site A 1 - 4 adipose tissue 5 possible hernia sac rmp/05/04/2022 [facility] Department of Pathology [address] [place] [address] Normal [facility] Comment on above: Performed By: #### U [facility] #### [facility] Surgical Pathology Department [address] [id number] CORONAVIRUS 2019, SCREEN ASY MPTOMATICon 05-02-2022 SARS-CoV-2 (COVID-19) RNA SAVITA+probe Ql (Unsp spec) Not detected Normal Not Detected [facility] Comment on above: Result Comment: . This assay is designed to detect the N, ORF1ab and/or S genes of SARS-CoV-2 via nucleic acid amplification. A Negative (NOT DETECTED) result does not preclude 2019-nCoV infection since the adequacy of sample collection and/or low viral burden may result in presence of viral nucleic acids below the clinical sensitivity of this test method. Negative (NOT DETECTED) result should not be used as the sole basis for treatment or other patient management decisions. Rather negative results should be combined with clinical observations, patient history, and epidemiological information to make patient management decisions. Fact sheet for providers: https://www.fda.gov/media/080904/download Fact sheet for patients: https://www.fda.gov/media/375711/download This test has received FDA Emergency Use Authorization (EUA) and has been verified by [facility] ([facility]). This test is only authorized for the duration of time that circumstances exist to justify the authorization of the emergency use of in vitro diagnostic tests for the detection of SARS-CoV-2 virus and/or diagnosis of COVID-19 infection under section 564(b)(1) of the Act, 21 U.S.C. 360bbb-3(b)(1), unless the authorization is terminated or revoked sooner. [facility] is certified under CLIA-88 as qualified to perform high complexity testing. Testing is performed in the [facility] laboratories located at [address] [place] [address]. Performed By: #### C OVSC #### [facility] [address] [place] [id number] Covid 19 Resultson 2 SARS-CoV-2 (COVID-19) RNA SAVITA+probe Ql (Unsp spec) NEGATIVE COVID-19 Test Coronaviruses are common world-wide and are the cause of many common colds. SARS-COV2 is a new coronavirus that began circulating worldwide in 2019 so we are calling it COVID-19. It has been estimated that four out of five patients with COVID-19 will recover at home without the need for medical attention. Symptoms of COVID-19 may include cough, fever, shortness of breath, loss of taste or smell and other flu-like symptoms including chills, sore muscles, sore throat, and headache. Severe illness is more common in older people and people with other health problems such as high blood pressure, obesity, and immune system problems. If the test is positive, you have COVID-19. You will be contacted by the ordering physicians office and instructed to remain on home isolation, in accordance with CDC guidelines. You may also be contacted by the [facility] to see if any of your close contacts may have been exposed to the virus and need to quarantine. If the test is negative, you likely do not have COVID-19 at this time, but you still may have a different illness that can spread to other people (like Influenza, or the Flu) and could still be at risk for getting COVID-19. We recommend that you stay away from other people to limit the spread of illness until your symptoms are improving and you are fever-free for 24 hours without the use of fever lowering medications such as acetaminophen or ibuprofen. No test is 100% accurate so if you are still concerned you may have COVID-19, talk to your doctor about the need to continue to stay away from others. Medicines Unless your provider told you not to use the following: Acetaminophen (Tylenol and others) is generally safe. Anti-inflammatory medications, such as Ibuprofen (Advil or Motrin) or Naproxen (Aleve) can also be used. Wldn-alp-bijjzmq cough and cold medicines can be used according to the instructions on the package. Some vnrp-dbz-prikpbr medicines also contain acetaminophen. Make sure you are not taking more than your recommended dose. For those not hospitalized, there is no specific treatment available for this illness. Antibiotics do not treat Coronaviruses. Follow-Up Follow up with your doctor by scheduling a virtual visit or consider follow-up at one of our urgent care fever clinics. If you are having difficulty breathing, or are very weak and having difficulty standing, this is a medical emergency. Call 911 or have someone take you to the nearest emergency room immediately. If possible, wear a facemask. Additional guidance from the CDC for patients who tested POSITIVE for COVID-19 How to isolate: Isolate yourself in a specific room at home and limit your contact with others. Use a separate bathroom from other members of the household, when possible. Leave home only to get essential medical care. Do not go to work, school or public areas. Avoid using public transportation, ride-sharing, or taxis. Restrict contact with pets and other animals. If you must care for your pet or be around animals while you are sick, wash your hands before and after your interaction and wear a facemask. Make sure that shared spaces in the home have good airflow, such as by an air conditioner or an opened window, weather permitting. Personal Hygiene Procedures: Wear a face mask when in the same room as other people or pets. If a face mask interferes with your breathing, others should wear a mask when sharing space with you. Frequent hand-washing: wash your hands with soap and water for at least 20 seconds. If soap and water are not available, use alcohol-based hand alarm service technician. Avoid touching your eyes, nose, and mouth with unwashed hands. Household Hygiene Procedures: Avoid sharing personal household items such as dishes, glassware, cups, eating utensils, towels or bedding with other people or pets in your home. After use, these items should be washed with soap and hot water. Disinfect all high-touch surfaces every day with antibacterial cleaning solutions such as Lysol wipes, bleach, cleansers, etc. High-touch surfaces include tabletops, doorknobs, bathroom fixtures, toilets, phones, keyboards, tablets and bedside tables. Immediately clean any surfaces that may have blood, poop or body fluids on them, using antibacterial cleaning solutions such as Lysol wipes, bleach, cleansers, etc. If clothing or bedding come into contact with blood, poop or body fluids, they should be washed immediately. Follow the directions on the laundry detergent and clothing labels but hot water is recommended when possible. Stopping home isolation precautions: If possible, consult your doctor before stopping home isolation precautions. According to the CDC, you can discontinue home isolation precautions when you have met both of these criteria: Your fever and respiratory symptoms have been gone for 24 junior (more content not included)... Normal [facility] CORONAVIRUS 2019, SCREEN ASY MPTOMATICon 05-01-2022 Lab Specimen Source Nasal, Nasopharyngeal Normal [facility] Comment on above: Performed By: #### C OVSC #### [facility] [id number] [place] [address]. [place] [address] Coronavirus 2019 RNA by PCR, Screening Asymptomticon 05-01-2022 Coronavirus 2019 RNA by PCR, Screening Asymptomtic Not detected Normal See Below -[facility] Work Phone: Comment on above: SOURCE: Nasal, Nasop haryngealReference Range: Not Detected.This assay is designed to detect the N, ORF1ab and/or S genes of SARS-CoV-2 via nucleic acid amplification. A Negative (NOT DETECTED) result does not preclude 2019-nCoV infection since the adequacy of sample collection and/or low viral burden may result in presence of viral nucleic acids below the clinical sensitivity of this test method. Negative (NOT DETECTED) result should not be used as the sole basis for treatment or other patient management decisions. Rather negative results should be combined with clinical observations, patient history, and epidemiological information to make patient management decisions.Fact sheet for providers: https://www.fda.gov/media/454961/downloadFact sheet for patients: https://www.fda.gov/media/950784/downloadThis test has received FDA Emergency Use Authorization (EUA) and has been verified by [facility] ([facility]). This test is only authorized for the duration of time that circumstances exist to justify the authorization of the emergency use of in vitro diagnostic tests for the detection of SARS-CoV-2 virus and/or diagnosis of COVID-19 infection under section 564(b)(1) of the Act, 21 U.S.C. 360bbb-3(b)(1), unless the authorization is terminated or revoked sooner. [facility] is certified under CLIA-88 as qualified to perform high complexity testing. Testing is performed in the [facility] laboratories located at [id number] [place] [address]. Patient Profile - Preop v3on 04-26-2022 Patient Profile - Preop v3 Patient Profile - Preop: Initial Info: Patient DemographicsName: TERRIE ALLEN Date: 1980 Address: [address] [place] [address] UZIEL Hernandez [address] Primary Phone [phone] Call Attemptedattempt 1 Instructions Givenappropriate clothing, bring responsible adult as the emergency vehicle driver (procedure may be cancelled if no emergency vehicle driver), center location, insurance information Prep Instructions Reviewedyes Instructed to Have No Fluids Aftermidnight How to be AddressedDarrell Spoken Language PreferredEnglish Source of Informationpatient Stated Reason for AdmissionL hernia surgery Primary Contact Name and NumberAllie [phone] Medications Brought to Hospitalno General Health: Weight in kg102 kilogram(s) Weight in iqt788.8 pound(s) Weight Methodactual (measured) Scale Typestanding Height in feet6 feet Height in inches3 inch(es) Height in cm190.5 centimeter(s) Height Methodstated BMI (kg/m2)28.106 square meter Patient or Family Member Reaction to Anesthesiano previous family member reaction; no previous reaction Blood Avoidance/Restrictionsnon e Previous Transfusion Reactionnot applicable Health Mgmt: Symptoms/Conditions Managed at [facility] Barriers to Managing Healthnone Relationship/Environ: Lives Withspouse Living Arrangementshouse Resource/Environmental Concernsnone Anticipated Transition [place] [facility] Anticipated at Transitionnone Tobacco Use: Tobacco Useno Pre-op Checklist: Arrival [id number] Arrival Time09:43 Procedure TypeL Inguinal Hernia poss mesh NPOyes Last Food [id number] 18:00 Last Clear Fluid [id number] 22:30 ID Band On Patientpatient ID (name) Consent Signedyes H&P Completeyes, Consent verified. H&P present Anesthesia Assessment Completedyes EKG Performednot ordered Chest X-Ray Performednot ordered Preop Antibioticsstarted in preop Type and Screen Resultedn/a Chlorhexadine Bath Givencompleted at home, not applicable Nasal Antiseptic Appliednot applicable Soap and Water Bath the Night Before Surgeryyes Hair Washed with Shampooyes Bowel Prepno Surgical Site Infection Preventionyes Pain Scales and Managementyes Additional Information: Information Review: Allergies, Home Meds and Significant Events have been Reviewed and Verified with Patient/Familyyes Allergy, Intolerance, Adverse Event: Allergies: No Known Allergies: Active Problem List: Surg History: Collar bone fracture: Catalog Name: Fracture of unspecified part of unspecified clavicle, initial encounter for closed fracture Ankle fracture: Catalog Name: Other fracture of unspecified lower leg, initial encounter for closed fracture Electronic Signatures: Karley Encinas (RN) (Signed 03-May-2022 12:28) Authored: Initial Info, General Health, Health Mgmt, Relationship/Environ, Pre-op Checklist, Additional Information Airam WilkinsonRN) (Signed 26-Apr-2022 09:16) Authored: Initial Info, General Health, Tobacco Use, Additional Information Last Updated: 03-May-2022 12:28 by Karley Encinas (RN) [facility] Initial Visit (General Surge ry)on 04-20-2022 Initial Visit (General Surgery) Diagnoses/Problems Inguinal hernia (550.90) (K40.90) Orders SocHx: Non-smoker Tobacco Use Screening; Status:Complete; Done: 20Apr2022 Perform:Not Applicable;Ordered; For:SocHx: Non-smoker; Ordered By:Sheila Del Rosario; Provider Impressions We discussed hernias in general as well as the alternatives for observation versus repair. Due to the discomfort he would like to have it repaired. We discussed the alternatives of open versus a laparoscopic repair. We discussed the procedure risks and potential complications. He opts for an open anterior repair. We discussed the fact mesh would be placed and there was a risk of hernia recurrence despite the mesh or mesh infection necessitating removal. We discussed the risk of postoperative pain syndromes, contralateral hernia formation and possible testicular loss. All questions were answered and he asked us to proceed. Chief Complaint Self ref left groin pain. Pt states he has a bulge in his groin. Bowels moving good. History of Present IllnessPatient is seen for evaluation of left groin pain and bulge. He states approximately 3 weeks ago he felt something pop in his left groin and had discomfort. Over the last 5 days he has developed a bulge. It is reducible. Review of Systems Constitutional: Denies fever, chills, sweats,weight changes Cardiovascular: Denies chest pain or palpitations Respiratory: Denies SOB or cough Gastrointestinal: Denies change in bowel habits, abdominal pain or blood in the stool Genitourinary: Denies dysuria or frequency Musculoskeletal: Denies weakness or swelling Integumentary: Surgical History History of Ankle surgery History of Clavicle fracture repair History of Colonoscopy Family History Family history of diabetes mellitus (V18.0) (Z83.3) Family history of diabetes mellitus (V18.0) (Z83.3) Social History Denies alcohol consumption (V49.89) (Z78.9) Non-smoker (V49.89) (Z78.9) Allergies No Known Drug Allergies Recorded By: Sheila Del Rosario; 04/20/2022 3:37:37 PM Current Meds Medication NameInstruction No Reported Medications Vitals Vital Signs Recorded: 20Apr2022 03:29PM Heart Rate80 Jhylnesc478 Wvqqnjbzr20 Height6 ft 3 in Kebcpz809 lb 8 oz BMI Pbwbfutmna93.06 kg/m2 BSA Calculated2.3 Tobacco Useb) No Falls Screening (Age 18+)a) No falls within the last year Physical Exam Constitutional - General appearance: In no acute distress, well appearing and well nourished. Eyes - Anicteric. Pulmonary - Respiratory effort: Normal respiration. Cardiovascular - Regular rate. Abdomen - Soft and nontender. He is thin and you can see the left inguinal hernia. It is reducible. Musculoskeletal - No edema. Neurologic - Nonfocal. Psychiatric - Appropriate. Signatures Electronically signed by : Tony Saleh MD; Apr 22 2022 10:48AM EST (Author) Normal [facility] Tobacco Screening.on 022 Fall risk assessment a) No falls within the last year [facility] Work Phone: Tobacco use status [facility] b) No M [facility] Work Phone: Vital Signs Date Time Vital Sign Value Performing Clinician Deborah obregon 03-02-2025 13:19-0400 Diastolic blood pressure 83 mm[Hg] Maria R Central DPM Work Phone: [facility] 03-02-2025 13:19-0400 Heart rate 75 /min Maria R Central DPM Work Phone: [facility] 03-02-2025 13:19-0400 Systolic blood pressure 146 mm[Hg] Maria R Central DPM Work Phone: [facility] 03-02-2025 13:16-0400 Body temperature 98.01 [degF] Maria R Chandana DPM Work Phone: [facility] 02-23-2025 10:58-0400 Body temperature 98.4 [degF] Maria R Central DPM Work Phone: [facility] 02-23-2025 10:58-0400 Diastolic blood pressure 85 mm[Hg] Maria R Central DPM Work Phone: [facility] 02-23-2025 10:58-0400 Heart rate 77 /min Maria R Chandana DPM Work Phone: [facility] 02-23-2025 10:58-0400 Systolic blood pressure 137 mm[Hg] Maria R Central DPM Work Phone: [facility] 02-09-2025 13:47-0400 Body temperature 98.2 [degF] Maria R Chandana DPM Work Phone: [facility] 02-09-2025 13:47-0400 Diastolic blood pressure 75 mm[Hg] Maria R Central DPM Work Phone: [facility] 02-09-2025 13:47-0400 Heart rate 73 /min Maria R Central DPM Work Phone: [facility] 02-09-2025 13:47-0400 Systolic blood pressure 127 mm[Hg] Maria R Chandana DPM Work Phone: [facility] 11-16-2024 14:34-0500 Body height 190.[address] Geronimo Lemus MD Work Phone: [facility] 11-16-2024 14:34-0500 Body mass index (BMI) [Ratio] 27.5 kg/m2 Dr. Geronimo Lemus MD Work Phone: [facility] 11-16-2024 14:34-0500 Body temperature 97.1 [degF] Dr. Geronimo Lemus MD Work Phone: [facility] 11-16-2024 14:34-0500 Body weight 99.[address] Geronimo Lemus MD Work Phone: [facility] 11-16-2024 14:34-0500 Diastolic blood pressure 68 mm[Hg] Dr. Geronimo Lemus MD Work Phone: [facility] 11-16-2024 14:34-0500 Heart rate 77 /min Dr. Geronimo Lemus MD Work Phone: [facility] 11-16-2024 14:34-0500 Respiratory rate 16 /min Dr. Geronimo Lemus MD Work Phone: [facility] 11-16-2024 14:34-0500 SaO2% (BldA) [Mass fraction] 99 % Dr. Geronimo Lemus MD Work Phone: [facility] 11-16-2024 14:34-0500 Systolic blood pressure 112 mm[Hg] Dr. Geronimo Lemus MD Work Phone: [facility] 09-28-2024 13:33-0500 Body mass index (BMI) [Ratio] 27.7 kg/m2 Dr. Geronimo Lemus MD Work Phone: [facility] 09-28-2024 13:33-0500 Body temperature 97.5 [degF] Dr. Geronimo Lemus MD Work Phone: [facility] 09-28-2024 13:33-0500 Body weight 100.[address] Geronimo Lemus MD Work Phone: [facility] 09-28-2024 13:33-0500 Diastolic blood pressure 78 mm[Hg] Dr. Geronimo Lemus MD Work Phone: [facility] 09-28-2024 13:33-0500 Heart rate 63 /min Dr. Geronimo Lemus MD Work Phone: [facility] 09-28-2024 13:33-0500 Respiratory rate 16 /min Dr. Geronimo Lemus MD Work Phone: [facility] 09-28-2024 13:33-0500 SaO2% (BldA) [Mass fraction] 99 % Dr. Geronimo Lemus MD Work Phone: [facility] 09-28-2024 13:33-0500 Systolic blood pressure 128 mm[Hg] Dr. Geronimo Lemus MD Work Phone: [facility] 02-25-2024 13:52-0400 Body height 190.[address] Sancho Oakes Work Phone: [facility] 02-25-2024 13:52-0400 Body mass index (BMI) [Ratio] 24.3 kg/m2 Dr. Sancho Oakes Work Phone: [facility] 02-25-2024 13:52-0400 Body temperature 97.2 [degF] Dr. Sancho Oakes Work Phone: [facility] 02-25-2024 13:52-0400 Body weight 88.[address] Sancho Oakes Work Phone: [facility] 02-25-2024 13:52-0400 Diastolic blood pressure 82 mm[Hg] Dr. Sancho Oakes Work Phone: [facility] 02-25-2024 13:52-0400 Heart rate 77 /min Dr. Sancho Oakes Work Phone: [facility] 02-25-2024 13:52-0400 Systolic blood pressure 127 mm[Hg] Dr. Sancho Oakes Work Phone: [facility] 01-30-2024 23:28-0400 Body temperature 97.8 [degF] Dr. Marcellus Oakes Work Phone: [facility] 01-30-2024 23:28-0400 Diastolic blood pressure 75 mm[Hg] Dr. Marcellus Oakes Work Phone: [facility] 01-30-2024 23:28-0400 Heart rate 82 /min Dr. Marcellus Oakes Work Phone: [facility] 01-30-2024 23:28-0400 Respiratory rate 16 /min Dr. Marcellus Oakes Work Phone: [facility] 01-30-2024 23:28-0400 SaO2% (BldA) [Mass fraction] 98 % Dr. Marcellus Oakes Work Phone: [facility] 01-30-2024 23:28-0400 Systolic blood pressure 117 mm[Hg] Dr. Marcellus Oakes Work Phone: [facility] 01-28-2024 16:44-0400 Body height 190.[address] Marcellus Oakes Work Phone: [facility] 01-28-2024 16:44-0400 Body weight 100.[address] Marcellus Oakes Work Phone: [facility] 01-23-2024 14:50-0400 Body temperature 98.4 [degF] Dr. Marcellus Oakes Work Phone: [facility] 01-23-2024 14:50-0400 Diastolic blood pressure 88 mm[Hg] Dr. Marcellus Oakes Work Phone: [facility] 01-23-2024 14:50-0400 Heart rate 81 /min Dr. Marcellus Oakes Work Phone: [facility] 01-23-2024 14:50-0400 Respiratory rate 16 /min Dr. Marcellus Okaes Work Phone: [facility] 01-23-2024 14:50-0400 SaO2% (BldA) [Mass fraction] 95 % Dr. Marcellus Oakes Work Phone: [facility] 01-23-2024 14:50-0400 Systolic blood pressure 147 mm[Hg] Dr. Marcellus Oakes Work Phone: [facility] 01-22-2024 13:22-0400 Body height 190.[address] Marcellus Oakes Work Phone: [facility] 01-22-2024 13:22-0400 Body weight 100.[address] Marcellus Oakes Work Phone: [facility] 01-19-2024 13:22-0400 Inhaled oxygen flow rate 2 L/min Dr. Marcellus Oakes Work Phone: 8(694)025-350705 [place] [address] 01-19-2024 02:36-0400 Body mass index (BMI) [Ratio] 27.6 kg/m2 Dr. Marcellus Oakes Work Phone: 6(012)782-591669 [place] [address] 01-18-2024 22:30-0400 Body temperature 100.4 [degF] Dr. Marcellus Oakes Work Phone: 3(015)770-259369 [place] [address] 01-18-2024 22:30-0400 Diastolic blood pressure 67 mm[Hg] Dr. Marcellus Oakes Work Phone: 9(378)475-966369 [place] [address] 01-18-2024 22:30-0400 Heart rate 109 /min Dr. Marcellus Oakes Work Phone: 9(948)499-222069 [place] [address] 01-18-2024 22:30-0400 Respiratory rate 25 /min Dr. Marcellus Oakes Work Phone: 5(381)925-470769 [place] [address] 01-18-2024 22:30-0400 SaO2% (BldA) [Mass fraction] 98 % Dr. Marcellus Oakes Work Phone: 2(592)528-322705 [place] [address] 01-18-2024 22:30-0400 Systolic blood pressure 114 mm[Hg] Dr. Marcellus Oakes Work Phone: 8(645)558-382469 [place] [address] 01-18-2024 17:40-0400 Body mass index (BMI) [Ratio] 27.2 kg/m2 Dr. Marcellus Oakes Work Phone: 8(037)050-834605 [place] [address] 01-18-2024 17:40-0400 Body weight 101.[address] Marcellus Oakes Work Phone: 8(143)130-690605 [place] [address] 01-18-2024 17:34-0400 Body height 193.[address] Marcellus Oakes Work Phone: [facility] 01-16-2024 13:36-0400 Body temperature 97.7 [degF] Dr. Marcellus Oakes Work Phone: [facility] 01-16-2024 13:36-0400 Diastolic blood pressure 73 mm[Hg] Dr. Marcellus Oakes Work Phone: 0(779)501-598605 [place] [address] 01-16-2024 13:36-0400 Heart rate 86 /min Dr. Marcellus Oakes Work Phone: 1(366)386-512569 [place] [address] 01-16-2024 13:36-0400 Respiratory rate 16 /min Dr. Marcellus Oakes Work Phone: 0(369)956-953112 [address] 01-16-2024 13:36-0400 SaO2% (BldA) [Mass fraction] 98 % Dr. Marcellus Oakes Work Phone: 9(751)463-932205 [place] [address] 01-16-2024 13:36-0400 Systolic blood pressure 118 mm[Hg] Dr. Marcellus Oakes Work Phone: 0(902)672-702805 [place] [address] 01-15-2024 12:03-0400 Body height 193.[address] Marcellus Oakes Work Phone: 7(539)278-598905 [place] [address] 01-15-2024 12:03-0400 Body weight 100.[address] Marcellus Oakes Work Phone: 9(336)483-484212 [address] 01-14-2024 16:12-0400 Body mass index (BMI) [Ratio] 26.9 kg/m2 Dr. Marcellus Oakes Work Phone: 1(814)539-246712 [address] 01-14-2024 09:18-0400 Body temperature 98.2 [degF] Dr. Marcellus Oakes Work Phone: [facility] 01-14-2024 09:18-0400 Diastolic blood pressure 64 mm[Hg] Dr. Marcellus Oakes Work Phone: [facility] 01-14-2024 09:18-0400 Heart rate 98 /min Dr. Marcellus Oakes Work Phone: [facility] 01-14-2024 09:18-0400 Respiratory rate 18 /min Dr. Marcellus Oakes Work Phone: [facility] 01-14-2024 09:18-0400 SaO2% (BldA) [Mass fraction] 99 % Dr. Marcellus Oakes Work Phone: [facility] 01-14-2024 09:18-0400 Systolic blood pressure 105 mm[Hg] Dr. Marcellus Oakes Work Phone: [facility] 01-12-2024 13:40-0400 Body height 193.[address] Marcellus Oakes Work Phone: [facility] 01-12-2024 13:40-0400 Body weight 98.[address] Marcellus Oakes Work Phone: [facility] 01-11-2024 00:28-0400 Body temperature 98.1 [degF] [facility] 01-11-2024 00:28-0400 Diastolic blood pressure 78 mm[Hg] [facility] 01-11-2024 00:28-0400 Heart rate 76 /min [facility] 01-11-2024 00:28-0400 Respiratory rate 17 /min [facility] 01-11-2024 00:28-0400 SaO2% (BldA) [Mass fraction] 97 % [facility] 01-11-2024 00:28-0400 Systolic blood pressure 128 mm[Hg] [facility] 01-10-2024 23:28-0400 Body height 190.[address] [facility] 01-10-2024 23:28-0400 Body mass index (BMI) [Ratio] 27.1 kg/m2 [facility] 01-10-2024 23:28-0400 Body weight 98.[address] [facility] 05-15-2022 15:31-0400 Body height 190.5 cm Diana S Jolliff Work Phone: -[facility] Work Phone: 05-15-2022 15:31-0400 Body mass index (BMI) [Ratio] 28.06 kg/m2 Diana S Jolliff Work Phone: -[facility] Work Phone: 05-15-2022 15:31-0400 Body surface area Derived from formula 2.3 m2 Diana S Jolliff Work Phone: -[facility] Work Phone: 05-15-2022 15:31-0400 Body weight 101.83 kg Diana S Jolliff Work Phone: -[facility] Work Phone: 05-15-2022 15:31-0400 Diastolic blood pressure 92 mm[Hg] Diana S Jolliff Work Phone: [facility] Work Phone: 05-15-2022 15:31-0400 Heart rate 80 /min Diana S Jolliff Work Phone: -[facility] Work Phone: 05-15-2022 15:31-0400 Systolic blood pressure 134 mm[Hg] Diana S Jolliff Work Phone: -[facility] Work Phone: 04-20-2022 15:29-0400 Body height 190.5 cm Diana S Jolliff Work Phone: -[facility] Work Phone: 04-20-2022 15:29-0400 Body mass index (BMI) [Ratio] 28.06 kg/m2 Diana S Jolliff Work Phone: -[facility] Work Phone: 04-20-2022 15:29-0400 Body surface area Derived from formula 2.3 m2 Diana S Jolliff Work Phone: -[facility] Work Phone: 04-20-2022 15:29-0400 Body weight 101.83 kg Diana Rajan Jolliff Work Phone: -[facility] Work Phone: 04-20-2022 15:29-0400 Diastolic blood pressure 94 mm[Hg] Diana Rajan Jolliff Work Phone: -[facility] Work Phone: 04-20-2022 15:29-0400 Heart rate 80 /min Diana S Jolliff Work Phone: -[facility] Work Phone: 04-20-2022 15:29-0400 Systolic blood pressure 132 mm[Hg] Diana Hernandeslliff Work Phone: [facility] Work Phone: Encounters Encounter Date Encounter Type Care Provider Facility Start: 05-19-2025 End: 05-19-[address] [facility] Start: 05-17-2025 End: 05-17-2025 ambulatory Geronimo Lemus [place] Start: 05-17-2025 End: 05-17-2025 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 procedure Lee Robles DO -[facility] Work Phone: Start: 05-14-2025 End: 05-14-2025 ambulatory MARKUS [facility] Start: 04-08-2025 End: 04-08-2025 ambulatory MARKUS [facility] Start: 03-17-2025 End: 03-17-[address] Geronimo Lemus MD Work Phone: [facility] Work Phone: Start: 03-17-2025 End: 03-17-2025 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 procedure Celia RAMON -[facility] Work Phone: Start: 03-02-2025 End: 03-02-2025 Postop follow up visit related to original px Maria R Rees DPM Work Phone: [facility] Comment on above: Onychocryptosis (Tamra tony Dx); Toe pain, left Start: 03-02-2025 End: 03-02-2025 ambulatory MARIA R REES [facility] Start: 02-24-2025 End: 02-24-2025 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 procedure Celia RAMON -[facility] Work Phone: Start: 02-24-2025 End: 02-24-2025 ambulatory Geronimo Lemus Facility:[facility] Start: 02-23-2025 End: 02-23-2025 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 procedure Maria R Rees DPM Work Phone: [facility] Comment on above: Onychocryptosis (Tamra tony Dx); Onychodystrophy; Toe pain, left Start: 02-23-2025 End: 02-23-2025 ambulatory GERONIMO KRYSTALJOSEFINA SPAULDINGLAY [facility] Start: 02-09-2025 End: 02-09-2025 ambulatory GERONIMO KRYSTAL ISAURA [facility] Start: 02-09-2025 End: 02-09-2025 Office outpatient new 30 minutes Maria R Rees DPM Work Phone: [facility] Comment on above: Onychocryptosis (Tamra tony Dx); Onychodystrophy; Hammertoe of second toe of left foot Start: 02-08-2025 End: 02-08-2025 Chart abstracting Maria R Rees DPM Work Phone: [facility] Start: 01-12-2025 End: 01-12-2025 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 procedure Lee Robles DO -[facility] Work Phone: Start: 01-12-2025 End: 01-12-2025 ambulatory Lee Robles Facility:[facility] Start: 01-07-2025 End: 01-07-[address] Geronimo Lemus MD Work Phone: [facility] Work Phone: Start: 01-07-2025 End: 01-07-2025 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 procedure Lee Travis MADDEN -Nuclear Medicine, [facility] Work Phone: Start: 01-07-2025 End: 01-07-2025 ambulatory Lee [place] Facility:[facility] Start: 12-10-2024 End: 12-10-2024 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 procedure Lee Robles DO -Laboratory Work Phone: Start: 12-10-2024 End: 12-10-2024 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 procedure Lee Robles -[facility] Work Phone: Start: 12-10-2024 End: 12-10-2024 ambulatory Leerebekah Robles [place] Start: 12-10-2024 End: 12-10-2024 ambulatory Lee [place] Facility:[facility] Start: 12-07-2024 End: 12-07-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 Geronimo Lemus MD -Cat Scan, [facility] Work Phone: Start: 12-07-2024 End: 12-07-2024 ambulatory Geronimo Lemus Facility:[facility] Start: 12-04-2024 End: 12-04-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 Geronimo Lemus MD -Nuclear Medicine, [facility] Work Phone: Start: 12-04-2024 End: 12-04-2024 ambulatory Geronimo Lemus Facility:[facility] Start: 11-23-2024 End: 11-23-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 Geronimo Lemus MD -Laboratory, Spec[facility] Work Phone: Start: 11-23-2024 End: 11-23-2024 ambulatory Geronimo Lemus Facility:[facility] Start: 11-16-2024 End: 11-16-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 Geronimo Lemus MD -Laboratory, [facility] Start: 11-16-2024 End: 11-16-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 Geronimo Lemus MD -[facility] Work Phone: Start: 11-16-2024 End: 11-16-2024 ambulatory Geronimo Isaura [place] Start: 11-16-2024 End: 11-16-2024 ambulatory Geronimo Sabine Facility:[facility] Start: 11-10-2024 End: 11-10-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 Alin Issa MD -Radiology, [facility] Work Phone: Start: 11-10-2024 End: 11-10-2024 ambulatory Geronimo Isaura Facility:[facility] Start: 10-24-2024 End: 10-24-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 Geronimo Lemus MD -MRI - [facility] Work Phone: Start: 10-24-2024 End: 10-24-2024 ambulatory Geronimo Lemus Facility:[facility] Start: 10-12-2024 End: 10-12-2024 ambulatory Kevin Corona MD Work Phone: [facility] Comment on above: labs look great Start: 10-12-2024 End: 10-12-2024 E-mail encounter from caregiver Kevin Corona III, MD Work Phone: [facility] Start: 10-09-2024 End: 10-09-2024 ambulatory KEVIN CORONA III Facility:[facility] Start: 09-28-2024 End: 09-28-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 Jericho Romero MD -[facility] Work Phone: Start: 09-28-2024 End: 09-28-2024 ambulatory Geronimo Lemus [place] Start: 09-25-2024 End: 09-25-2024 ambulatory KEVIN CORONA III Facility:[facility] Start: 09-10-2024 End: 09-11-2024 ambulatory Kevin Corona MD Work Phone: [facility] Comment on above: Blood test results Start: 09-08-2024 End: 09-08-2024 ambulatory KEVIN CORONA III Facility:[facility] Start: 08-13-2024 End: 08-13-2024 ambulatory Geronimo Spauldinglay [place] Start: 08-10-2024 End: 08-10-2024 ambulatory Kevin Corona MD Work Phone: [facility] Comment on above: labs look good Start: 08-10-2024 End: 08-10-2024 E-mail encounter from caregiver Kevin Corona III, MD Work Phone: [place] [facility] Start: 08-07-2024 End: 08-07-2024 ambulatory KEVIN CORONA III Facility:[facility] Start: 07-24-2024 End: 07-24-2024 E-mail encounter from caregiver Kevin Corona III, MD Work Phone: [place] [facility] Start: 07-24-2024 End: 07-24-2024 Subsequent hospital visit by physician [facility] ([facility]) Work Phone: Cat Scan Comment on above: Infection in abdomen (HCC) [K65.9] Start: 07-24-2024 End: 07-24-2024 ambulatory Kevin Corona MD Work Phone: [place] [facility] Comment on above: CT scan Start: 07-22-2024 End: 07-27-2024 Telephone encounter Kevin Corona MD Work Phone: [facility] Comment on above: Patient Update Start: 07-07-2024 End: 07-07-2024 ambulatory KEVIN CORONA III Facility:[facility] Start: 07-07-2024 End: 07-10-2024 Telephone encounter Kevin Corona MD Work Phone: [facility] Comment on above: Orders Start: 07-06-2024 End: 07-06-2024 Telemedicine consultation with patient Kevin Corona III, MD Work Phone: [facility] Start: 07-06-2024 End: 07-06-2024 ambulatory Kevin Corona MD Work Phone: [facility] Comment on above: Actinomyces infectio n (Primary Dx); Infection in abdomen (HCC) Start: 06-10-2024 End: 06-10-2024 ambulatory Geronimo Sabine Facility:[facility] Start: 06-08-2024 Telephone encounter Kevin kitchen MD Work Phone: [facility] Comment on above: Patient Update Start: 06-04-2024 ambulatory Ricco García [place] [facility] Start: 06-04-2024 End: 06-04-2024 ambulatory Geronimo Isaura Facility:[facility] Start: 05-28-2024 Telephone encounter Kevin kitchen MD Work Phone: [facility] Comment on above: Patient Question Start: 05-25-2024 End: 05-25-20[facility] Start: 05-24-2024 End: 05-24-2024 Refill Kevin Corona MD Work Phone: [facility] Comment on above: Refill Request Start: 04-13-2024 End: 04-13-2024 Telemedicine consultation with patient Kevin Corona III, MD Work Phone: [facility] Start: 04-13-2024 End: 04-13-2024 ambulatory Kevin Corona MD Work Phone: [facility] Comment on above: Actinomyces infectio n (Primary Dx); Encounter for long-term (current) use of antibiotics; Anxiety Start: 04-10-2024 Telephone encounter Kevin kitchen MD Work Phone: [facility] Comment on above: Medication Problem Start: 03-26-2024 Telephone encounter Kevin kitchen MD Work Phone: [facility] Comment on above: Medication Problem Start: 03-21-2024 Evaluation and management of inpatient BULMARO MOREIRA Facility:[facility] Start: 03-20-2024 Telephone encounter Kevin kitchen MD Work Phone: [facility] Comment on above: Symptoms Start: 03-18-2024 End: 03-18-2024 ambulatory Kevin Corona MD Work Phone: [facility] Comment on above: Actinomyces infectio n (Primary Dx); Encounter for long-term (current) use of antibiotics; Intra-abdominal abscess (HCC) Start: 03-18-2024 End: 03-18-2024 Telemedicine consultation with patient Kevin Corona III, MD Work Phone: [facility] Start: 03-13-2024 Telephone encounter Kevin kitchen MD Work Phone: [facility] Comment on above: Symptoms Start: 03-06-2024 Telephone encounter Kevin kitchen MD Work Phone: [facility] Comment on above: Symptoms Start: 02-26-2024 End: 02-26-2024 ambulatory ALI MALLAT Facility[facility] Start: 02-26-2024 Telephone encounter Kevin kitchen MD Work Phone: [facility] Comment on above: Results Start: 02-25-2024 End: 02-25-[address] Sancho Oakes Work Phone: [facility] Work Phone: Start: 02-25-2024 End: 02-25-[address] Sancho Oakes Work Phone: [facility] Work Phone: Start: 02-25-[address] Carl Oakes Work Phone: [facility] Work Phone: Start: 02-24-2024 Telephone encounter Kevin kitchen MD Work Phone: [facility] Comment on above: [employer] Start: 02-24-2024 End: 02-25-[address] Sancho Oakes Work Phone: [facility] Work Phone: Start: 02-24-2024 End: 02-25-[address] Sancho Oakes Work Phone: [facility]-Home Health Lab Start: 02-21-2024 Orders Only Diana Sierra Work Phone: [place] [facility] Comment on above: Open wound of anteri or abdominal wall, sequela (Primary Dx); S/P exploratory laparotomy; Intraperitoneal abscess (HCC); S/P partial resection of colon Orders Start: 02-20-2024 End: 02-20-2024 ambulatory UNKNOWN PROVIDER Facility:[facility] Start: 02-17-2024 Emergency department patient visit [facility] Facility:[facility] Start: 02-17-2024 Telephone encounter Clyde Hennessy MD Work Phone: [facility] Start: 02-13-2024 End: 02-13-2024 Subsequent hospital visit by physician Charles Orta MD Work Phone: [facility] INTERVENTIONAL RADIOLOG[facility] Comment on above: Postprocedural intra abdominal abscess [T81.43XA] Start: 02-12-2024 Telephone encounter Kevin kitchen MD Work Phone: [facility] [facility] Comment on above: Results Start: 02-07-2024 Telephone encounter Acute Care Surgeon Work Phone: [facility] Comment on above: Director Of Transportation - O ther Start: 02-06-2024 Telephone encounter Kevin kitchen MD Work Phone: [facility] [facility] Comment on above: Medication Authoriza tion Start: 02-04-[address], MD Work Phone: [place] [facility] Comment on above: CoPat Start Start: 01-31-2024 Evaluation and management of inpatient SANCHO AGUILERA Facility:[facility] Start: 01-30-2024 Non-patient / Non-visit Dr. Parker Oakes Work Phone: [facility] Start: 01-29-2024 Non-patient / Non-visit Dr. Parker Oakes Work Phone: [facility] Start: 01-28-2024 Non-patient / Non-visit Dr. Parker Oakes Work Phone: [facility] Start: 01-27-2024 Non-patient / Non-visit Dr. Parker Oakes Work Phone: [facility] Start: 01-26-2024 Non-patient / Non-visit [facility]. [facility] Start: 01-25-2024 Non-patient / Non-visit Dr. Parker Oakes Work Phone: [facility] Start: 01-24-2024 Non-patient / Non-visit Dr. Parker Oakes Work Phone: [facility] Start: 01-23-2024 Non-patient / Non-visit Dr. Parker Oakes Work Phone: [facility] Start: 01-22-2024 Non-patient / Non-visit Dr. Parker Oakes Work Phone: [facility] Start: 01-21-2024 Non-patient / Non-visit Dr. Parker Oakes Work Phone: [facility] Start: 01-20-2024 Non-patient / Non-visit Dr. Parker Oakes Work Phone: [facility] Start: 01-19-2024 Non-patient / Non-visit Dr. Parker Oakes Work Phone: [facility] Start: 01-18-2024 End: 01-31-2024 Evaluation and management of inpatient [facility] Marcellus O[facility] Work Phone: Start: 01-18-2024 Non-patient / Non-visit Dr. Parker Oakes Work Phone: [facility] Start: 01-17-2024 End: 01-17-[address] Marcellus Oakes Work Phone: [facility] Work Phone: Start: 01-17-2024 End: 01-17-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 Marcellus Oakes Work Phone: [facility]-Laboratory Work Phone: Start: 01-16-2024 Non-patient / Non-visit Dr. Parker Oakes Work Phone: [facility] Start: 01-15-2024 Non-patient / Non-visit Dr. Parker Oakes Work Phone: [facility] Start: 01-14-2024 Non-patient / Non-visit Dr. Parker Oakes Work Phone: [facility] Start: 01-13-2024 Non-patient / Non-visit Dr. Parker Oakes Work Phone: [facility] Start: 01-12-2024 Non-patient / Non-visit Dr. Parker Oakes Work Phone: [facility] Start: 01-11-2024 End: 01-16-2024 Evaluation and management of inpatient Dr. Marcellus Oakes [facility] Work Phone: Start: 01-10-2024 [facility] Work Phone: Start: 01-10-2024 Non-patient / Non-visit Dr. Parker Oakes Work Phone: [facility] Start: 12-18-2023 End: 12-18-2023 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 procedure [facility]-Laboratory, Spec[facility] Work Phone: Start: 12-16-2023 End: 12-16-2023 ambulatory [facility] Work Phone: Start: 12-16-2023 End: 12-16-2023 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 procedure [facility]-Radiology, [place] Work Phone: Start: 05-15-2022 Postop follow up vis it related to original px Diana S Gretaroniff Work Phone: -[facility] Work Phone: Start: 05-03-2022 End: 05-03-[address] Tony Saleh Facility:[id number] Start: 05-03-[address] [facility], Provider: Tony Saleh, Status: Pen, Time: 9:30 AM Diana S Jolliff Work Phone: -[facility] Work Phone: Start: 05-03-2022 Chart Update Diana S Gretalliff Work Phone: -[facility] Work Phone: Start: 04-20-2022 Office outpatient ne w 45 minutes Diana S Jolliff Work Phone: -[facility] Work Phone: Procedures Date Procedure Procedure Detail Performing Clinician Start: 02-23-2025 End: 02-23-2025 NURSING COMMUNICATION Maria R Rees DPM Work Phone: Start: 01-07-2025 Radionuclide study of abdomen Dr. Geronimo Lemus MD Work Phone: Start: 12-10-2024 Albumin/Globulin ratio Dr. Geronimo bronson MD Work Phone: Start: 12-10-[address] Geronimo Lemus MD Work Phone: Comment on above: *Additional results available. Contact l aboratory/see report*The atypical pANCA pattern has been observed in asignificant percentage of patients with ulcerative colitis,primary sclerosing cholangitis and autoimmune hepatitis. Start: 12-10-2024 Antibody to centromere measurement Dr. Geronimo Lemus MD Work Phone: Comment on above: Previous reported result: TNP AIEdited b y: INFCE on 12/13/24:1408 AMENDED REPORT 12/13/24 1404 ANTI-CENT B previously reported as: Test not performed Start: 12-10-2024 Antibody to extractable nuclear antigen measurement Dr. Geronimo Lemus MD Work Phone: Comment on above: Previous reported result: TNP AIEdited b y: INFCE on 12/13/24:1408 AMENDED REPORT 12/13/24 1404 GARCÍA Ab previously reported as: Test not performed Start: 12-10-2024 Antibody to GRETA-[address] Geronimo Lemus MD Work Phone: Comment on above: Previous reported result: TNP AIEdited b y: INFCE on 12/13/24:1408 AMENDED REPORT 12/13/24 1400 ANTI-GRETA previously reported as: Test not performed Start: 12-10-2024 Antibody to lupus La protein measurement Dr. Geronimo Lemus MD Work Phone: Comment on above: Previous reported result: TNP AIEdited b y: INFCE on 12/13/24:1408 AMENDED REPORT 12/13/24 1408 Anti-SS-B previously reported as: Test not performed Start: 12-10-2024 Antibody to SS-A measurement Dr. Geronimo Lemus MD Work Phone: Comment on above: Previous reported result: TNP AIEdited b y: INFCE on 12/13/24:1408 AMENDED REPORT 12/13/24 1408 Anti-SS-A previously reported as: Test not performed Start: 12-10-[address] Geronimo porter MD Work Phone: Comment on above: Previous reported result: TNP AIEdited b y: INFCE on 12/13/24:1408 AMENDED REPORT 12/13/24 1408 ANTICHROMATIN previously reported as: Test not performed Start: 12-10-2024 C>3< complement assay Dr. Geronimo Lemus MD Work Phone: Start: 12-10-[address] Geronimo Lemus MD Work Phone: Start: 12-10-2024 Endomysial antibody IgA level Dr. Geronimo Lemus MD Work Phone: Start: 12-10-[address] Geronimo porter MD Work Phone: Comment on above: Result: c.1601G>A ([id number]) - Not De tectedThis result is not associated with an increased risk for venousthromboembolism. See Additional Clinical Information andComments.Additional Clinical Information:Venous thromboembolism is a multifactorial diseaseinfluenced by genetic, environmental, and circumstantialrisk factors. The c.1601G>A (p. [id number]) variant in theF5 gene, commonly referred to as Factor V Leiden, is agenetic risk factor for venous thromboembolism.Heterozygous carriers of this variant have a 6- to 8-foldincreased risk for venous thromboembolism. Individualshomozygous for this variant (ie, with a copy of the varianton each chromosome) have an approximately 80-fold increasedrisk for venous thromboembolism. Individuals who carry heavenly c.*97G>A variant in the F2 gene and Factor V Leiden havean approximately 20-fold increased risk for venousthromboembolism. Risks are likely to be even higher in morecomplex genotype combinations involving the F2 c.*97G>Avariant and Factor V Leiden (PMID: [id number]). Additionalrisk factors include but are not limited to: deficiency ofprotein C, protein S, or antithrombin III, age, male sex,personal or family history of deep vein thromboembolism,smoking, surgery, prolonged immobilization, malignantneoplasm, tamoxifen treatment, raloxifene treatment, oralcontraceptive use, hormone replacement therapy, andpregnancy. Management of thrombotic risk and thromboticevents should follow established guidelines and fit theclinical circumstance. This result cannot predict theoccurrence or recurrence of a thrombotic event.Comment:Genetic counseling is recommended to discuss thepotential clinical implications of positive results, aswell as recommendations for testing family members.Genetic Coordinators are available for health careproviders to discuss results at [phone]).Test Details:Variant Analyzed: c.1601G>A (p. [id number]), referred toas Factor V LeidenMethods/Limitations:DNA analysis of the F5 gene (NM_000130.5) was performedby PCR amplification followed by restriction enzymeanalysis. The diagnostic sensitivity is >99%. Results mustbe combined with clinical information for the most accurateinterpretation. Molecular-based testing is highly accurate,but as in any laboratory test, diagnostic errors may occur.False positive or false negative results may occur forreasons that include genetic variants, blood transfusions,bone marrow transplantation, somatic or tissue-specificmosaicism, mislabeled samples, or erroneous representationof family relationships.This test was developed and its performance characteristicsdetermined by [employer] ([employer]). It has not been cleared orapproved by the Food and Drug Administration.References:Hector Rajan, Maribel WAGONER, Aaron R, Brendon WW, Amari JH; ACMGProfessional Practice and Guidelines Committee. Addendum:[employer] consensus statement onfactor V Leiden mutation testing. Mignon Med. 2020Dec 30.doi: 10.1038/[id number]. PMID: [id number].Cherir CANAS. Factor V Leiden Thrombophilia. 1998March 10(Updated 2017Oct 31). In: Fer MP, Massimo HH, Shaka RA,et al., editors. Michael(R) (Internet). [place] ([place]):[facility]; 1211-6416. Availablefrom: https://www.ncbi.nlm.nih.gov/books/PCZ0868/Maribel Dunn, Sin X, Jeremie B, Yanira EB, Berna P,Aliza CS; [facility] Loop Drier Operator Committee.Venous thromboembolism laboratory testing (factor V Leidenand factor II c.*97G>A), 2018 update: a technical standardof the [employer]). Mignon Med. 2018 Sep;20(12):6313-7057. doi:10.1038/[id number]. Epub 2017Aug 01. PMID: [id number]. Start: 12-10-[address] eGronimo bronson MD Work Phone: Start: 12-10-[address] Geronimo Lemus MD Work Phone: Start: 12-10-2024 Hemolytic complement CH50 level Dr. Vicki Lemus MD Work Phone: Comment on above: Age Male Female 1 - 30 days Not Estab. N ot Estab. 31 days - 6 months >32 >20 7 months - 17 years >39 >39 >17 years >41 >41 NOTE: The adult (">17 years") reference interval range is used to flag abnormals on this report. If the patient is 17 years old or younger, use the table above to determine out of range values. Start: 12-10-2024 Immunoglobulin G subclass, G4 measurement Dr. Geronimo Lemus MD Work Phone: Start: 12-10-[address] Geronimo Lemus MD Work Phone: Start: 12-10-[address] Chelsi Lemus MD Work Phone: Comment on above: No lupus anticoagulant was detected. Start: 12-10-2024 Lupus anticoagulant assay, platelet neutralization method Dr. Geronimo Lemus MD Work Phone: Start: 12-10-[address]24 [address] screening test Dr. Geronimo eLmus MD Work Phone: Start: 12-10-2024 Measurement of C-reactive protein using high sensitivity technique Dr. Geronimo Lemus MD Work Phone: Comment on above: C-Reactive Protein (CRP) provides useful information for thediagnosis, therapy and monitoring of inflammatory processesand associated diseases. For the evaluation of Relative Riskfor Cardiovascular Disease, a High Sensitivity CRP (HSCRP)should be ordered. Start: 12-10-2024 Measurement of fungal antibody Dr. Chelsi Lemus MD Work Phone: Comment on above: Negative: <45 Equivocal: 45-50 Positive: >50 Start: 12-10-[address] Geronimo Lemus MD Work Phone: Start: 12-10-2024 RN DOCUMENTATION SPECIALIST antibody measurement Dr. Geronimo porter MD Work Phone: Comment on above: Previous reported result: TNP AIEdited b y: INFCE on 12/13/24:1408 AMENDED REPORT 12/13/24 1408 RN DOCUMENTATION SPECIALIST Ab previously reported as: Test not performed Start: 12-10-2024 Serum IgM anticardiolipin measurement Dr. Geronimo Lemus MD Work Phone: Comment on above: Negative: <13 Indeterminate: 13 - 20 Low -Med Positive: >20 - 80 High Positive: >80 Start: 12-10-[address] Geronimo Lemus MD Work Phone: Start: 12-07-2024 Computed tomography of abdomen and pelvis with contrast Dr. Geronimo Lemus MD Work Phone: Start: 12-04-2024 Radionuclide gastric emptying study Dr. Geronimo Lemus MD Work Phone: Start: 11-10-[address] Geronimo Lemus MD Work Phone: Start: 10-24-2024 MRI of lumbar spine Dr. Geronimo Lemus MD Work Phone: Start: 07-24-2024 Ct abdomen & pelvis w/contrast material Kevin Corona MD Work Phone: Start: 02-24-2024 CBCDIF (EXTERNAL) Kevin Corona MD Work Phone: Start: 02-24-2024 Comprehensive metabolic 1999 panel - Serum or Plasma Kevin Corona MD Work Phone: Start: 02-13-2024 Cntrst njx 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 via drg cath/tube spx Emre Meier HAND DEICER ELEMENT WINDER.BEAUTY SHOP MANAGER Work Phone: Start: 02-10-2024 CBCDIF (EXTERNAL) Kevin Corona MD Work Phone: Start: 02-10-2024 Comprehensive metabolic 2000 panel - Serum or Plasma Kevin Corona MD Work Phone: Start: 01-30-2024 Computed tomography of abdomen and pelvis with contrast Dr. Marcellus Oakes Work Phone: Start: 01-24-[address] Elijah Oakes Work Phone: Start: 01-24-2024 Investigation of transfusion reaction Dr. Marcellus Oakes Work Phone: Start: 01-24-2024 Microbial culture, routine Dr. Qamar Oakes Work Phone: Start: 01-22-2024 Plain X-ray abdomen Dr. Marcellus Oakes Work Phone: Start: 01-21-2024 Plain X-ray abdomen Dr. Marcellus Oakes Work Phone: Start: 01-19-2024 Investigation of transfusion reaction Dr. Marcellus Oakes Work Phone: Start: 01-19-2024 Microbial culture, routine Dr. Qamar Oakes Work Phone: Start: 01-18-[address] Marcellus Oakes Work Phone: Start: 01-18-2024 Plain chest X-ray Dr. Marcellus Oakes Work Phone: Start: 01-18-2024 Computed tomography of abdomen and pelvis with intravenous contrast Dr. Marcellus Oakes Work Phone: Start: 01-18-2024 Bacteria identified in Blood by Culture Dr. Marcellus Oakes Work Phone: Start: 01-18-[address] Marcellus Oakes Work Phone: Start: 01-17-[address] Marcellus Oakes Work Phone: Start: 01-15-[address] Elijah Oakes Work Phone: Start: 01-15-2024 Investigation of transfusion reaction Dr. Marcellus Oakes Work Phone: Start: 01-15-2024 Microbial culture, routine Dr. Qamar Oakes Work Phone: Start: 01-12-2024 Plain X-ray abdomen Dr. Marcellus Oakes Work Phone: Start: 01-11-[address] Marcellus Oakes Work Phone: Start: 01-10-2024 Computed tomography of abdomen and pelvis with intravenous contrast Start: 01-10-2024 Clostridium difficile detection Start: 01-10-2024 Lactoferrin measurement Start: 01-10-2024 Nucleic acid assay Start: 01-10-20[address] parasites identification Dr. Abran Oakes Work Phone: Start: 12-18-2023 Nucleic acid assay Start: 12-16-2023 Diagnostic radiography of abdomen, decubitus and erect Start: 05-03-2022 Repair of inguinal hernia Diana Rajan Layokunal Work Phone: Comment on above: Left inguinal hernia; Start: 10-28-2007 Operative procedure on ankle Diana Hernandesronderek ff Work Phone: Start: 10-28-2004 Operation on fracture Diana Hernandesronkunal Work Phone: Start: 10-28-2003 Colonoscopy Diana Hernandesronkunal Work Phone: H/O: surgery S/P exploratory laparotomy Dr. Marcellus Oakes Work Phone: Comment on above: Patient with ongoing wound and sinus tra ct managed by his and our office. Once again, based on my exam of the wound there does not appear to be any concern for infection. This wound has decreased in size by over 72% (1.8 to 0.5 cm). There does not appear to be any signs of further tracking. With this excellent wound healing I have counseled Mr. Allen that it may quickly become impossible to pack the wound at all and not to worry but to be encouraged as this is the desired result. Plan to follow-up with him in 2 weeks for a wound check, but hopefully at that time the wound is fully healed.Apart from the above patient was noted to have further elevated total bilirubin with recheck of his labs. He has had a fairly consistent increase in this laboratory since initiation of long-term antibiotics. Additional note is given to his history of a superior mesenteric vein thrombus. Radiographically, that thrombus has been confirmed as dissolved so I am most suspicious for possible undesired effect from his antibiotic use. Recommended repeating this lab prior to his next visit. Patient expressed understanding and appreciation for this vigilance. H/O: surgery S/P exploratory laparotomy Diana Foster MD Work Phone: Plan of Treatment Date Care Activity Detail Author Start: 06-28-2025 Influenza vaccination Influenza Vaccine (Season Ended) [facility] Start: 03-02-2025 End: 03-02-2025 Follow-up encounter 03/02/2025 1:15 PM EDT Follow-Up [facility] [address] [place] [address] Maria R Rees DPM [address] [place] [address] [facility] Start: 02-23-2025 End: 02-23-2025 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 procedure 02/23/2025 11:00 AM EDT Procedure visit [facility] [address] [place] [address] Maria R Rees DPM [address] [place] [address] [facility] Start: 02-09-2025 End: 02-09-2025 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 procedure 02/09/2025 1:45 PM EDT Office Visit [facility] Physician [facility] [address] [place] [phone] Maria R Rees, DENTON [address] [place] [address] [facility] Physician [facility] Start: 10-08-2024 End: 10-08-2024 ambulatory 10/08/2024 3:15 PM EST Results Only [facility] [address] [place] [address] Labs [facility] Comment on above: Labs Start: 09-21-2024 End: 12-21-2024 C reactive protein [Mass/volume] in Serum or Plasma C-REACTIVE PROTEIN Lab Routine ESR raised Expected: 09/21/2024, Expires: 12/21/2024 [facility] Comment on above: Expected: 09/21/2024, Expires: Start: 09-21-2024 End: 12-21-2024 Erythrocyte sedimentation rate SEDIMENTATION RATE, WESTERGREN Lab Routine ESR raised Expected: 09/21/2024, Expires: 12/21/2024 [facility] Work Phone: Comment on above: Expected: 09/21/2024, Expires: Start: 07-24-2024 End: 07-24-2024 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 procedure Cat Scan Comment on above: nfection in abdomen (HCC) [K65.9] Start: 07-24-2024 End: 07-24-2024 ambulatory [facility] Start: 07-10-2024 End: 10-09-2024 Basic metabolic 2000 panel - Serum or Plasma BASIC METABOLIC PANEL Lab Routine Infection in abdomen (HCC) Expected: 07/10/2024, Expires: 10/09/2024 [facility] Comment on above: Expected: 07/10/2024, Expires: Start: 07-06-2024 End: 07-06-2024 ambulatory 07/06/2024 2:30 PM EDT [facility] Department of Infectious Disease [address] [phone] Kevin Corona III, MD [address] [phone] actinomyces infection f/u [facility] Comment on above: actinomyces infection f/u Start: 06-28-2024 Covid-19 Vaccine ( season) Covid-19 Vaccine () [facility] Start: 06-28-2024 Covid-19 Vaccine () Covid-19 Vaccine () [facility] Start: 06-28-[address] [facility] Start: 04-13-2024 End: 04-13-2024 ambulatory 04/13/2024 8:30 AM EDT [facility] Department of Infectious Disease [address] [phone] Kevin Corona III, MD [address] [phone] per [facility] Department of Infectious Disease Comment on above: per [facility] Start: 03-30-2024 End: 06-29-2024 CBC W Auto Differential panel - Blood COMPLETE BLOOD COUNT AND DIFFERENTIAL Lab Routine Encounter for long-term (current) use of antibiotics Actinomyces infection Expected: 03/30/2024, Expires: 06/29/2024 [facility] Work Phone: Comment on above: Expected: 03/30/2024, Expires: 4 Start: 03-30-2024 End: 06-29-2024 Comprehensive metabolic 2000 panel - Serum or Plasma COMPREHENSIVE METABOLIC PANEL Lab Routine Encounter for long-term (current) use of antibiotics Actinomyces infection Expected: 03/30/2024, Expires: 06/29/2024 [facility] Comment on above: Expected: 03/30/2024, Expires: Start: 03-28-2024 Tetanus vaccination Tetanus: Every 10yrs [facility] Start: 03-28-2024 Urine microalbumin profile DTaP,Tdap,Td Vaccine (2 - Td or Tdap) [facility] Start: 03-18-2024 End: 03-18-2024 ambulatory 03/18/2024 2:30 PM EDT [facility] [place] Department of Infectious Disease [address] [place] [phone] Kevin Corona III, MD [address] [place] [address] copat f/u per DMD [facility] of [facility] Comment on above: copat f/u per DMD Start: 03-18-2024 End: 03-18-2024 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 procedure 03/18/2024 2:30 PM EDT Office Visit [facility] [address] [place] [phone] Kevin Corona III, MD [address] [place], [place] [phone] copat f/u per DMD [facility] Comment on above: copat f/u per DMD Start: 02-26-2024 End: 02-26-2024 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 procedure 02/26/2024 1:15 PM EDT Office Visit [facility] 1 [facility] [address] [place], [place] [phone] Agustina Christensen MD 1 [facility] [address] [place], [place] [phone] fu abscessogram [facility] Comment on above: fu abscessogram Start: 02-20-2024 End: 02-20-2024 Admission to same day surgery center 02/20/2024 12:15 PM EDT - 02/20/2024 12:45 PM EDT Surgery [facility] [address] [place] [address] [place] [address] [facility] , [address] [place] [id number] CONTRAST INJECTION FOR ASSESSMENT OF ABSCESS VIA PREVIOUSLY PLACED DRAINAGE TUBE [facility] Comment on above: CONTRAST INJECTION FOR ASSESSMENT OF ABS CESS VIA PREVIOUSLY PLACED DRAINAGE TUBE Start: 02-20-2024 End: 02-20-2024 Cntrst njx 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 via drg cath/tube spx CONTRAST INJECTION FOR ASSESSMENT OF ABSCESS VIA PREVIOUSLY PLACED DRAINAGE TUBE Abscess 02/20/2024 12:15 PM EDT [facility] Start: 02-20-2024 Subsequent hospital visit by physician 02/20/2024 12:15 PM EDT Hospital Encounter [facility] [address] [place] [address] [place] [address] [facility] , [address] [place] [address] Abscess [L02.91] [facility] Comment on above: Abscess [L02.91] Start: 01-31-2024 Blood chemistry [facility] Start: 01-30-2024 Patient discharge [facility] Start: 01-29-2024 Referral to service [facility] Start: 01-29-2024 Provision of activity privileges [facility] Start: 01-29-2024 [facility] Start: 01-27-2024 Consultation [facility] Start: 01-24-2024 Blood chemistry [facility] Start: 01-22-2024 End: 01-22-2024 Nil by mouth [facility] Start: 01-22-2024 Care planning and problem solving actions [facility] Start: 01-20-2024 End: 01-20-2024 [facility] Start: 01-19-2024 Anaerobic microbial culture Anaerobic Culture [facility] Start: 01-19-2024 [facility] Start: 01-19-2024 Wound care [facility] Start: 01-19-2024 Care planning and problem solving actions [facility] Start: 01-19-2024 Consultation for treatment [facility] Start: 01-19-2024 Application of intermittent pneumatic compression device [facility] Start: 01-19-2024 Ambulation without limitation [facility] Start: 01-19-[address] [facility] Start: 01-19-2024 Maintenance of drainage tube [facility] Start: 01-19-2024 Measuring intake and output [facility] Start: 01-19-2024 Notification of physician [facility] Start: 01-19-2024 Vital signs measurements [facility] Start: 01-19-2024 [facility] Start: 01-19-2024 Following clinical pathway protocol [facility] Start: 01-19-2024 Laparoscopy Diagnostic Laparoscopy (Not Applicable) [facility] Start: 01-19-2024 Patient referral to dietitian [facility] Start: 01-18-2024 Verification routine [facility] Start: 01-18-2024 [facility] Start: 01-18-2024 Admission procedure [facility] Start: 01-18-2024 Hospital admission, emergency, from emergency room, medical nature [facility] Start: 01-18-2024 Enteric precautions [facility] Start: 01-18-2024 [facility] Start: 01-18-2024 End: 01-18-2024 Blood culture [facility] Start: 01-18-2024 Bacteria identified in Blood by Culture Blood Culture [facility] Start: 01-18-2024 Bacteria identified in Urine by Culture [facility] Start: 01-16-2024 Patient discharge [facility] Start: 01-16-2024 [facility] Start: 01-15-2024 Anaerobic Culture Anaerobic Culture [facility] Start: 01-15-2024 Microbial culture, routine Wound Culture [facility] Start: 01-15-2024 End: 01-15-2024 [facility] Start: 01-14-2024 Provision of activity privileges [facility] Start: 01-14-2024 [facility] Start: 01-12-2024 [facility] Start: 01-11-2024 Introduction of urinary catheter [facility] Start: 01-11-2024 Application of intermittent pneumatic compression device [facility] Start: 01-11-2024 Following clinical pathway protocol [facility] Start: 01-11-2024 Application of ice collar, cap or bag [facility] Start: 01-11-2024 Admission procedure [facility] Start: 01-11-2024 Laparoscopy Diagnostic Laparoscopy (Not Applicable) [facility] Start: 01-10-2024 Hospital admission, emergency, from emergency room, medical nature [facility] Start: 01-10-2024 Enteric precautions [facility] Start: 12-18-2023 Nucleic acid assay Enteric Bacteriology [facility] Start: 10-28-2023 Behavioral Health Screening Behavioral Health Screening [facility] Start: 06-28-2023 Covid-19 Vaccine () Covid-19 Vaccine ( season) [facility] Start: 2015 Lipid panel Lipid Screening [facility] Start: 1999 Hepatitis B Vaccine (1 of 3 - 19+ 3-dose series) Hepatitis B Vaccine (1 of 3 - 19+ 3-dose series) [facility] Start: 1999 Urine microalbumin profile DTaP,Tdap,Td Vaccine (1 - Tdap) [facility] Start: 1998 Anxiety Screening Anxiety Screening [facility] Start: 1998 Depression Screening Depression Screening [facility] Start: 1998 Hepatitis C screening Hepatitis C Screening [facility] Start: 1998 HIV screening HIV Screening [facility] Start: 1995 HIV screening HIV Screening [facility] Start: 1992 Depression screening using PHQ-9 (Patient Health Questionnaire 9) score Depression Screening/Follow-Up (PHQ-2/9) [facility] Start: 1983 History and physical examination, annual for health maintenance Wellness Visit [facility] Alanine aminotransfe rase [Enzymatic activity/volume] in Serum or Plasma [facility] Albumin [Mass/volume ] in Serum or Plasma [facility] Alkaline phosphatase [Enzymatic activity/volume] in Serum or Plasma [facility] Anion gap measurement [facility] Anion gap measurement [facility] Anion gap measurement [facility] Aspartate aminotransferase [Enzymatic activity/volume] in Serum or Plasma [facility] Bacteria identified in Unspecified specimen by Anaerobe culture [facility] Bilirubin, total measurement [facility] BUN/Creatinine ratio [facility] BUN/Creatinine ratio [facility] BUN/Creatinine ratio [facility] End: 07-06-2025 C reactive protein [Mass/volume] in Serum or Plasma C-REACTIVE PROTEIN Lab Routine Actinomyces infection Every other week for 3 Occurrences starting 07/06/2024 until 07/06/2025, [address] [facility] Comment on above: Every other week for 3 Occurrences start ing 07/06/2024 until 07/06/2025, 1 completed Calcium [Mass/volume ] in Serum or Plasma [facility] Calcium [Mass/volume ] in Serum or Plasma [facility] Calcium [Mass/volume ] in Serum or Plasma [facility] Carbon dioxide, tota l [Moles/volume] in Serum or Plasma [facility] Carbon dioxide, tota l [Moles/volume] in Serum or Plasma [facility] Carbon dioxide, tota l [Moles/volume] in Serum or Plasma [facility] Chloride [Moles/volu me] in Serum or Plasma [facility] Chloride [Moles/volu me] in Serum or Plasma [facility] Chloride [Moles/volu me] in Serum or Plasma [facility] Clostridioides diffi cile DNA [Presence] in Unspecified specimen by SAVITA with probe detection [facility] Clostridioides diffi cile toxin genes [Presence] in Stool by SAVITA with probe detection C. DIFFICILE PCR Lab Routine Diarrhea of presumed infectious origin Ordered: 03/20/2024 [facility] Work Phone: Comment on above: Ordered: 03/20/2024 Creatinine [Moles/vo lume] in Serum or Plasma [facility] Creatinine [Moles/vo lume] in Serum or Plasma [facility] Creatinine [Moles/vo lume] in Serum or Plasma [facility] End: 08-09-2025 CT Abdomen and Pelvis W contrast IV CT ABD/PEL W IVCON Radiology Routine Infection in abdomen (HCC) 1 Occurrences starting 07/10/2024 until 08/09/2025 [facility] Comment on above: 1 Occurrences starting 07/10/2024 until 08/09/2025 Elastase.pancreatic [Presence] in Stool [facility] Erythrocyte mean corpuscular volume determination [facility] Erythrocyte mean corpuscular volume determination [facility] Erythrocyte mean corpuscular volume determination [facility] End: 07-06-2025 Erythrocyte sedimentation rate SEDIMENTATION RATE, WESTERGREN Lab Routine Actinomyces infection Every other week for 3 Occurrences starting 07/06/2024 until 07/06/2025, 1 completed [facility] Work Phone: Comment on above: Every other week for 3 Occurrences start ing 07/06/2024 until 07/06/2025, 1 completed Glucose [Mass/volume ] in Serum or Plasma [facility] Glucose [Mass/volume ] in Serum or Plasma [facility] Glucose [Mass/volume ] in Serum or Plasma [facility] Hematocrit [Volume Fraction] of Blood [facility] Hematocrit [Volume Fraction] of Blood [facility] Hematocrit [Volume Fraction] of Blood [facility] Hemoglobin [Mass/vol ume] in Blood [facility] Hemoglobin [Mass/vol ume] in Blood [facility] Hemoglobin [Mass/vol ume] in Blood [facility] [facility] Leukocytes [#/volume ] in Blood [facility] Leukocytes [#/volume ] in Blood [facility] Leukocytes [#/volume ] in Blood [facility] Magnesium [Mass/volu me] in Serum or Plasma [facility] Magnesium [Mass/volu me] in Serum or Plasma [facility] Magnesium [Mass/volu me] in Serum or Plasma [facility] Mean corpuscular hemoglobin concentration determination [facility] Mean corpuscular hemoglobin concentration determination [facility] Mean corpuscular hemoglobin concentration determination [facility] Mean corpuscular hemoglobin determination [facility] Mean corpuscular hemoglobin determination [facility] Mean corpuscular hemoglobin determination [facility] Measurement of renal function [facility] Measurement of renal function [facility] Measurement of renal function [facility] Neutrophil count [facility] Neutrophil count [facility] Neutrophil count [facility] Neutrophil percent differential count [facility] Neutrophil percent differential count [facility] Neutrophil percent differential count [facility] Ova and parasites identified in Unspecified specimen by Light microscopy [facility] Patient referral [facility] Work Phone: Platelets [#/volume] in Blood [facility] Platelets [#/volume] in Blood [facility] Platelets [#/volume] in Blood [facility] Potassium [Moles/vol ume] in Serum or Plasma [facility] Potassium [Moles/vol ume] in Serum or Plasma [facility] Potassium [Moles/vol ume] in Serum or Plasma [facility] Red blood cell count [facility] Red blood cell count [facility] Red blood cell count [facility] Red cell distributio n width determination [facility] Red cell distributio n width determination [facility] Red cell distributio n width determination [facility] Serum inorganic phos phate measurement [facility] Serum inorganic phos phate measurement [facility] Serum inorganic phos phate measurement [facility] Sodium [Moles/volume ] in Serum or Plasma [facility] Sodium [Moles/volume ] in Serum or Plasma [facility] Sodium [Moles/volume ] in Serum or Plasma [facility] Total protein measurement [facility] Urea nitrogen [Mass/volume] in Serum or Plasma [facility] Urea nitrogen [Mass/volume] in Serum or Plasma [facility] Urea nitrogen [Mass/volume] in Serum or Plasma [facility] Vancomycin [Mass/vol ume] in Serum or Plasma --[facility] Immunizations Immunization Date Immunization Notes Care Provider [facility] 07-21-2019 Influenza, injectabl e, Madin Sandra Canine Kidney, preservative free, quadrivalent Dr. Geronimo Lemus MD Work Phone: [facility] 07-21-2019 influenza virus vaccine, unspecified formulation Charles Orta MD, MD Work Phone: [facility] 09-02-2018 influenza, injectabl e, quadrivalent, preservative free Dr. Geronimo Lemus MD Work Phone: [facility] 08-08-2017 influenza, seasonal, injectable, preservative free Dr. Geronimo Lemus MD Work Phone: [facility] 08-08-2017 Seasonal, quadrivale nt, recombinant, injectable influenza vaccine, preservative free Dr. Geronimo Lemus MD Work Phone: [facility] 08-12-2016 influenza, seasonal, injectable, preservative free Dr. Geronimo Lemus MD Work Phone: [facility] 08-12-2016 Seasonal, quadrivale nt, recombinant, injectable influenza vaccine, preservative free Dr. Geronimo Lemus MD Work Phone: [facility] 08-15-2015 influenza, seasonal, injectable, preservative free Dr. Geronimo Lemus MD Work Phone: [facility] 08-15-2015 Seasonal, quadrivale nt, recombinant, injectable influenza vaccine, preservative free Dr. Geronimo Lemus MD Work Phone: [facility] 03-28-2014 tetanus toxoid, redu jose diphtheria toxoid, and acellular pertussis vaccine, adsorbed Dr. Geronimo Lemus MD Work Phone: [facility] Payers Date Payer Category Payer Self-pay [id number] 2023 Blue Cross Blue Shie ld (Indemnity or Managed Care) - Out of State BCBS OUT OF STATE [place] [id number] 2023 Unknown 2023 Unknown [id number] 2009 Unknown [id number] 1980 Unknown [id number] 2.16.840.1.085679.3.579.2. 1069 1980 Unknown [id number] 2.16.840.1.868548.3.579.2. 903 1980 Unknown [id number] 2.16.840.1.419739.3.579.2. 903 1980 Unknown [id number] 2.16.840.1.096543.3.579.2. 903 1980 Unknown [id number] 2.16.840.1.424551.3.579.2. 1243 1980 Unknown [id number] 2..840.1.570044.3.579.2. 1243 1980 Unknown [id number] 2.840.1.538158.3.579.2. 1243 Unknown [id number] Unknown [id number] 2.840.1.494245.3.579.2. 462 Unknown [id number] 2.840.1.942575.3.579.2. 462 Unknown [id number] 2..840.1.107848.3.579.2. 462 Unknown [id number] 2.16840.1.747482.3.579.2. 462 Unknown [id number] 2.840.1.798532.3.579.2. 462 Unknown [id number] 2.16840.1.756563.3.579.2. 462 Unknown [id number] 2.16.840.1.793917.3.579.2. 462 Unknown [id number] 2.16.840.1.498516.3.579.2. 462 Unknown [id number] 2.16.840.1.994008.3.579.2. 462 Unknown [id number] 2.16.840.1.190253.3.579.2. 462 Unknown [id number] 2.840.1.652147.3.579.2. 462 Unknown [id number] 2.16.840.1.504497.3.579.2. 462 Unknown [id number] 2.16.840.1.861544.3.579.2. 462 Unknown [id number] 2.16.840.1.440735.3.579.2. 462 Unknown [id number] 2.16.840.1.036012.3.579.2. 462 Unknown [id number] 2.16.840.1.724693.3.579.2. 462 Unknown [id number] 2.16.840.1.184220.3.579.2. 462 Unknown [id number] 2.16.840.1.250479.3.579.2. 462 Unknown [id number] 2.16.840.1.100361.3.579.2. 462 Unknown [id number] 2.16.840.1.032458.3.579.2. 462 Unknown [id number] 2.16.840.1.986886.3.579.2. 462 Unknown [id number] 2.16.840.1.901013.3.579.2. 462 Social History Date Type Detail Facility Start: 01-31-2024 End: 03-02-2025 Non-smoker Non-smoker [facility] Work Phone: Start: 09-10-2021 End: 01-19-2024 Tobacco smoking status IDIS Unknown if ever smoked [facility] Start: 1980 Sex Assigned At Male [facility] Start: 06-02-2024 End: 02-09-2025 Tobacco smoking status NHIS Never smoked tobacco [facility] Work Phone: Start: 02-03-2024 Alcohol intake Current non-drinker of alcohol (finding) [facility] Start: 01-31-2024 End: 03-02-2025 [facility] Utilities [facility] Work Phone: Has the [employer], or water company threatened to shut off services in your home in past 12Mo No [facility] Work Phone: (I/We) worried joshua er (my/our) food would run out before (I/we) got money to buy more. Never true [facility] Work Phone: In the past 12 month s, has lack of transportation kept you from medical appointments or from getting medications? No [facility] Work Phone: Start: 1980 Sex Assigned At Not on file [facility] Start: 01-17-2025 Sex Male (finding) [facility] Start: 02-08-2025 End: 03-02-2025 Alcoholic beverage intake Lifetime non-drinker (finding) [facility] Start: 02-09-2025 Tobacco use and exposure Smokeless tobacco non-user [facility] Medical Equipment Procedure Code Equipment Code Equipment Origin al Text Equipment Identifier Dates Laparoscopy, diagnostic Surgical staple loading unit, cutting [id number] FDA Start: 01-11-2024 Laparoscopy, diagnostic Surgical staple loading unit, cutting ()[id number] FDA Start: 01-11-2024 Laparoscopy, diagnostic Open-surgery manual linear cutting stapler, single-use ()[id number] FDA Start: 01-11-2024 Goals Date Patient Goal Desired Activity /State Functional Status Date Assessment Result Facility 01-31-2024 Functional status Ambulates;Up ad arnav [facility] Work Phone: 01-23-2024 Functional status Ambulates;Up a d arnav;Dangle Feet [facility] Work Phone: 01-16-2024 Functional status Up ad arnav;Bathroom Priv ilege [facility] Work Phone: 01-15-2024 Functional status Tolerates Activity Well [facility] Work Phone: 01-14-2024 Functional status Ambulates [facility] Work Phone: 01-13-2024 Functional status Assistive Devices None [facility] Work Phone: Mental Status Date Assessment Result Facility 01-30-2024 Cognitive function Voice/Name [facility] Work Phone: 01-22-2024 Cognitive function Voice/Name [facility] Work Phone: 01-16-2024 Cognitive function Voice/Name [facility] Work Phone: 01-14-2024 Cognitive function Voice/Name [facility] Work Phone: Clinical Notes 04-01-2022 to 03-02-2025 Maria R Rees DPM - 03/02/2025 1:36 PM EDT Note Date & Type Note Facility 03-02-2025 Note Mariela Gamble PM Patient Name: Terrie Allen. . Date of : 1980, 44 y.o.. Gender: male. Subjective: Patient is a pleasant 44-year-old male who presents to clinic for his postoperative evaluation 1 week status post phenol matricectomy on the left great toenail. Patient states that he is doing very well. He has been soaking in Epsom salt once daily. Denies any pain, redness, drainage, etc. No other pedal complaint at this time. Denies fevers, chills, nausea, vomiting, chest pain, shortness of breath, or any other constitutional symptoms. Past Medical History: Diagnosis Date Abdominal pain Actinomyces infection Alteration in skin integrity related to surgical incision Anaerobic bacterial infection Chronic anticoagulation Diarrhea due to drug Dyspepsia and disorder of function of stomach Eczema Enterococcus faecalis infection Finger sprain Intra-abdominal abscess (HCC) Intraabdominal fluid collection Irritable bowel syndrome Moderate protein-calorie malnutrition Motion sickness Open wnd anterior abdomen Postprocedural intraabdominal abscess (HCC) Pseudomonas aeruginosa infection Thrombus Wound dehiscence Past Surgical History: Procedure Laterality Date ANKLE SURGERY Right COLON SURGERY patrtial removal HERNIA REPAIR intestine partial removal left clavicle repair with plate Left 2004 PICC LINE INSERTION N/A 02/03/2024 SIGMOIDOSCOPY FLX N/A 12/18/2005 Social History [1] Physical Examination: BP (!) 146/83 (BP Location: Right arm, Patient Position: Sitting, BP Cuff Size: Adult) Pulse 75 Temp 98 degrees F (36.7 degrees C) (Oral) General Appearance: Alert, cooperative, no distress, appears stated age. Podiatric Exam Vascular: DP and PT pulses are palpable 2/4. Capillary refill time is less than 3 secs to distal digits. Skin temperature is warm to warm from proximal tibial tuberosity to distal digit. No appreciable edema to bilateral foot or ankle Neurological: Gross sensation is intact. Protective sensation is intact. Dermatologic: The medial border of the left great toenail is absent secondary to recent phenol matrixectomy procedure.. No surrounding erythema, edema or any acute signs infection. Interdigital spaces are clean dry and intact. Musculoskeletal: No pain on palpation to the medial border of the left great toenail. Slight overlapping of the left second toe onto the great toe. Ankle joint range of motion is intact. Muscle strength is 5/5 to dorsiflexors, plantar flexors, inverters and everters. Compartments soft and compressible. No calf pain Diagnoses: 1. Onychocryptosis 2. Toe pain, left Imaging: Not required at this visit Assessment/Plan: Patient was seen and evaluated. Discussed all clinical findings. Patient is doing very well postoperatively. No acute signs of infection. No need for oral antibiotics. Patient may resume all activity without restriction with exception to going [place] for the next 3 weeks. All questions were answered to patient satisfaction. Patient understands to call with any questions or concerns. Follow-up as needed. This note was partially created using voice recognition software and is inherently subject to errors including those of syntax and sound-alike substitutions which may escape proofreading. In such instances, original meaning may be extrapolated by contextual derivation. Maria R Rees DPM, MS Podiatric Physician & Surgeon [1] Social History Socioeconomic History Marital status: Tobacco Use Smoking status: Never Smokeless tobacco: Never Substance and Sexual Activity Alcohol use: Never Drug use: Never Social Drivers of Health Food Insecurity: No Food Insecurity (03/22/2024) Received from [facility] Vital Sign Worried About Running Out of Food in the Last Year: Never true Ran Out of Food in the Last Year: Never true Transportation Needs: No Transportation Needs (03/22/2024) Received from [facility] PRAPARE - Transportation Lack of Transportation (Medical): No Lack of Transportation (Non-Medical): No Housing Stability: Low Risk (03/22/2024) Received from [facility] Housing Stability Vital Sign Unable to Pay for Housing in the Last Year: No Number of Places Lived in the Last Year: 1 Unstable Housing in the Last Year: No AUTHENTICATED BY MARIA R REES, ON 03/02/2025 13:38:03 [facility] 03-02-2025 History of Present illness Narrative Images from the original note were not included. Maria R Rees DPM Patient Name: Terrie Allen. . Date of : 1980, 44 y.o.. Gender: male. Subjective: Patient is a pleasant 44-year-old male who presents to clinic for his postoperative evaluation 1 week status post phenol matricectomy on the left great toenail. Patient states that he is doing very well. He has been soaking in Epsom salt once daily. Denies any pain, redness, drainage, etc. No other pedal complaint at this time. Denies fevers, chills, nausea, vomiting, chest pain, shortness of breath, or any other constitutional symptoms. Past Medical History: Diagnosis Date Abdominal pain Actinomyces infection Alteration in skin integrity related to surgical incision Anaerobic bacterial infection Chronic anticoagulation Diarrhea due to drug Dyspepsia and disorder of function of stomach Eczema Enterococcus faecalis infection Finger sprain Intra-abdominal abscess (HCC) Intraabdominal fluid collection Irritable bowel syndrome Moderate protein-calorie malnutrition Motion sickness Open wnd anterior abdomen Postprocedural intraabdominal abscess (HCC) Pseudomonas aeruginosa infection Thrombus Wound dehiscence Past Surgical History: Procedure Laterality Date ANKLE SURGERY Right COLON SURGERY patrtial removal HERNIA REPAIR intestine partial removal left clavicle repair with plate Left 2004 PICC LINE INSERTION N/A 02/03/2024 SIGMOIDOSCOPY FLX N/A 12/18/2005 Social History [1] Physical Examination: BP (!) 146/83 (BP Location: Right arm, Patient Position: Sitting, BP Cuff Size: Adult) Pulse 75 Temp 98 F (36.7 C) (Oral) General Appearance: Alert, cooperative, no distress, appears stated age. Podiatric Exam Vascular: DP and PT pulses are palpable 2/4. Capillary refill time is less than 3 secs to distal digits. Skin temperature is warm to warm from proximal tibial tuberosity to distal digit. No appreciable edema to bilateral foot or ankle Neurological: Gross sensation is intact. Protective sensation is intact. Dermatologic: The medial border of the left great toenail is absent secondary to recent phenol matrixectomy procedure.. No surrounding erythema, edema or any acute signs infection. Interdigital spaces are clean dry and intact. Musculoskeletal: No pain on palpation to the medial border of the left great toenail. Slight overlapping of the left second toe onto the great toe. Ankle joint range of motion is intact. Muscle strength is 5/5 to dorsiflexors, plantar flexors, inverters and everters. Compartments soft and compressible. No calf pain Diagnoses: 1. Onychocryptosis 2. Toe pain, left Imaging: Not required at this visit Assessment/Plan: Patient was seen and evaluated. Discussed all clinical findings. Patient is doing very well postoperatively. No acute signs of infection. No need for oral antibiotics. Patient may resume all activity without restriction with exception to going [place] for the next 3 weeks. All questions were answered to patient satisfaction. Patient understands to call with any questions or concerns. Follow-up as needed. This note was partially created using voice recognition software and is inherently subject to errors including those of syntax and "sound-alike" substitutions which may escape proofreading. In such instances, original meaning may be extrapolated by contextual derivation. Maria R Rees DPM, MS Podiatric Physician & Surgeon [1] Social History Socioeconomic History Marital status: Tobacco Use Smoking status: Never Smokeless tobacco: Never Substance and Sexual Activity Alcohol use: Never Drug use: Never Social Drivers of Health Food Insecurity: No Food Insecurity (03/22/2024) Received from [facility] Hunger Vital Sign Worried About Running Out of Food in the Last Year: Never true Ran Out of Food in the Last Year: Never true Transportation Needs: No Transportation Needs (03/22/2024) Received from [facility] PRAPARE - Transportation Lack of Transportation (Medical): No Lack of Transportation (Non-Medical): No Housing Stability: Low Risk (03/22/2024) Received from [facility] Housing Stability Vital Sign Unable to Pay for Housing in the Last Year: No Number of Places Lived in the Last Year: 1 Unstable Housing in the Last Year: No documented in this encounter [facility] 02-24-2025 Evaluation note Diagnosis Onset Date Resolution Nausea acute February 24 3:03pm Gastro-esophageal reflux disease with esophagitis, without bleeding acute March 17, 2025 3 :16pm Nausea acute March 17, 2025 3:16pm [facility] Work Phone: [phone]) 204-838504-29-2025 Adair Rees DPM Patient Name: Terrie Allen. . Date of : 1980, 44 y.o.. Gender: male. Subjective: Patient is a pleasant 44-year-old male who presents to clinic for scheduled phenol matricectomy on the left great toenail. Patient continues to have pain and discomfort with ambulation. Denies any redness, swelling or drainage from the toe. No other pedal complaint at this time. Denies fevers, chills, nausea, vomiting, chest pain, shortness of breath, or any other constitutional symptoms. Past Medical History: Diagnosis Date Abdominal pain Actinomyces infection Alteration in skin integrity related to surgical incision Anaerobic bacterial infection Chronic anticoagulation Diarrhea due to drug Dyspepsia and disorder of function of stomach Eczema Enterococcus faecalis infection Finger sprain Intra-abdominal abscess (HCC) Intraabdominal fluid collection Irritable bowel syndrome Moderate protein-calorie malnutrition Motion sickness Open wnd anterior abdomen Postprocedural intraabdominal abscess (HCC) Pseudomonas aeruginosa infection Thrombus Wound dehiscence Past Surgical History: Procedure Laterality Date ANKLE SURGERY Right COLON SURGERY patrtial removal HERNIA REPAIR intestine partial removal left clavicle repair with plate Left 2005 PICC LINE INSERTION N/A 02/03/2024 SIGMOIDOSCOPY FLX N/A 12/18/2005 Social History [1] Physical Examination: BP 137/85 (BP Location: Left arm, Patient Position: Sitting, BP Cuff Size: Adult) Pulse 77 Temp 98.4 degrees F (36.9 degrees C) (Oral) General Appearance: Alert, cooperative, no distress, appears stated age. Podiatric Exam Vascular: DP and PT pulses are palpable 2/4. Capillary refill time is less than 3 secs to distal digits. Skin temperature is warm to warm from proximal tibial tuberosity to distal digit. No appreciable edema to bilateral foot or ankle Neurological: Gross sensation is intact. Protective sensation is intact. Dermatologic: The medial border of the left great toenail is mildly incurvated into the nailbed. No surrounding erythema, edema or any acute signs infection. Interdigital spaces are clean dry and intact. Musculoskeletal: Pain on palpation to the medial border of the left great toenail. Slight overlapping of the left second toe onto the great toe. Ankle joint range of motion is intact. Muscle strength is 5/5 to dorsiflexors, plantar flexors, inverters and everters. Compartments soft and compressible. No calf pain Diagnoses: 1. Onychocryptosis 2. Onychodystrophy Imaging: Not required at this visit Assessment/Plan: Patient was seen and evaluated. Discussed all clinical findings. -With patient's continued pain due to onychocryptosis of the left great toenail, I discussed performing an in office nail surgery involving partial phenol matrixectomy, left great toenail. Patient is agreeable to this plan. See procedure below. PROCEDURE NOTE: Written consent was obtained prior to beginning the procedure. All risks and benefits were discussed with patient. No guarantees were made. PREOPERATIVE DX: Onychocryptosis, left great toenail POSTOPERATIVE DX: Onychocryptosis, left great toenail PROCEDURE PERFORMED: Partial phenol matricectomy, left great toenail The patient's left great toe was anesthetized using 6 cc of 2% lidocaine plain. The left great toe was scrubbed and prepped under proper sterile technique. The medial and lateral borders of the left great toenail were/was excised. No residual nail spicules were found. Phenol was utilized to cauterize the medial and lateral borders of the nailof of the left great toenail. The surgical site was flushed copiously with sterile saline. Applied wound gel to the surgical site. The left great toe was then dressed using 4 x 4, Kerlix and Coban. Patient tolerated the procedure well without any complications. -At the end of the procedure, the patient was provided with at home instructions. -Patient was educated on the signs of infection such as excessive redness, swelling, drainage, malodor, pain, etc. Patient understands to call our office immediately or to report to the emergency room. -All questions were answered to patient satisfaction. Patient understands to call with any questions or concerns. -Patient will return to clinic in 1 week for evaluation This note was partially created using voice recognition software and is inherently subject to errors including those of syntax and "sound-alike" substitutions which may escape proofreading. In such instances, original meaning may be extrapolated by contextual derivation. Maria R Rees DPM, MS Podiatric Physician & Surgeon [1] Social History Socioeconomic History Marital status: Tobacco Use Smoking status: Never Smokeless tobacco: Never Substance and Sexual Activity Alcohol use: Never Drug use: Never Social Drive (more content not included)...[facility]04-29-2025 History of Present illness Narrative* Maria R Rees DPM - 02/23/2025 1:43 PM EDT Images from the original note were not included. Maria R Rees DPM Patient Name: Terrie Allen. . Date of : 1980, 44 y.o.. Gender: male. Subjective: Patient is a pleasant 44-year-old male who presents to clinic for scheduled phenol matricectomy on the left great toenail. Patient continues to have pain and discomfort with ambulation. Denies any redness, swelling or drainage from the toe. No other pedal complaint at this time. Denies fevers, chills, nausea, vomiting, chest pain, shortness of breath, or any other constitutional symptoms. Past Medical History: Diagnosis Date Abdominal pain Actinomyces infection Alteration in skin integrity related to surgical incision Anaerobic bacterial infection Chronic anticoagulation Diarrhea due to drug Dyspepsia and disorder of function of stomach Eczema Enterococcus faecalis infection Finger sprain Intra-abdominal abscess (HCC) Intraabdominal fluid collection Irritable bowel syndrome Moderate protein-calorie malnutrition Motion sickness Open wnd anterior abdomen Postprocedural intraabdominal abscess (HCC) Pseudomonas aeruginosa infection Thrombus Wound dehiscence Past Surgical History: Procedure Laterality Date ANKLE SURGERY Right COLON SURGERY patrtial removal HERNIA REPAIR intestine partial removal left clavicle repair with plate Left 2004 PICC LINE INSERTION N/A 02/03/2024 SIGMOIDOSCOPY FLX N/A 12/18/2005 Social History [1] Physical Examination: BP 137/85 (BP Location: Left arm, Patient Position: Sitting, BP Cuff Size: Adult) Pulse 77 Temp98.4 F (36.9 C) (Oral) General Appearance: Alert, cooperative, no distress, appears stated age. Podiatric Exam Vascular: DP and PT pulses are palpable 2/4. Capillary refill time is less than 3 secs to distal digits. Skin temperature is warm to warm from proximal tibial tuberosity to distal digit. No appreciable edema to bilateral foot or ankle Neurological: Gross sensation is intact. Protective sensation is intact. Dermatologic: The medial border of the left great toenail is mildly incurvated into the nailbed. Nosurrounding erythema, edema or any acute signs infection. Interdigital spaces are clean dry and intact. Musculoskeletal: Pain on palpation to the medial border of the left great toenail. Slight overlapping of the left second toe onto the great toe. Ankle joint range of motion is intact. Muscle strengthis 5/5 to dorsiflexors, plantar flexors, inverters and everters. Compartments soft and compressible. No calf pain Diagnoses: 1. Onychocryptosis 2. Onychodystrophy Imaging: Not required at this visit Assessment/Plan: Patient was seen and evaluated. Discussed all clinical findings. -With patient's continued pain due to onychocryptosis of the left great toenail, I discussed performing an in office nail surgery involving partial phenol matrixectomy, left great toenail. Patient isagreeable to this plan. See procedure below. PROCEDURE NOTE: Written consent was obtained prior to beginning the procedure. All risks and benefits were discussed with patient. No guarantees were made. PREOPERATIVE DX: Onychocryptosis, left great toenail POSTOPERATIVE DX: Onychocryptosis, left great toenail PROCEDURE PERFORMED: Partial phenol matricectomy, left great toenail The patient's left great toe was anesthetized using 6 cc of 2% lidocaine plain. The left great toe was scrubbed and prepped under proper sterile technique. The medial and lateral borders of the left great toenail were/was excised. No residual nail spicules were found. Phenol was utilized to cauterize the medial and lateral borders of the nailof of the left great toenail. The surgical site was flushed copiously with sterile saline. Applied wound gel to the surgical site. The left great toe was then dressed using 4 x 4, Kerlix and Coban. Patient tolerated the procedure well without any complications. -At the end of the procedure, the patient was provided with at home instructions. -Patient was educated on the signs of infection such as excessive redness, swelling, drainage, malodor, pain, etc. Patient understands to call our office immediately or to report to the emergency room. -All questions were answered to patient satisfaction. Patient understands to call with any questions or concerns. -Patient will return to clinic in 1 week for evaluation This note was partially created using voice recognition software and is inherently subject to errors including those of syntax and "sound-alike" substitutions which may escape proofreading. In such instances, original meaning may be extrapolated by contextual derivation. Maria R Rees DPM, MS Podiatric Physician & Surgeon [1] Social History Socioeconomic History Marital status: Tobacco Use Smoking status: Never Smokeless tobacco: Never Substance and Sexual Activity Alcohol use: Never Drug use: Never Social Drivers of Health Food Insecurity: No Food Insecurity (03/22/2024) Received from [facility] Hunger Vital Sign Worried About Running Out of Food in the Last Year: Never true Ran Out of Food in the Last Year: Never true Transportation Needs: No Transportation Needs (03/22/2024) Received from [facility] PRAPARE - Transportation Lack of Transportation (Medical): No Lack of Transportation (Non-Medical): No Housing Stability: Low Risk (03/22/2024) Received from [facility] Housing Stability Vital Sign Unable to Pay for Housing in the Last Year: No Number of Places Lived in the Last Year: 1 Unstable Housing in the Last Year: No documented in this [id number] Instructions* Patient Instructions* Violetta Garzon, TECHNOLOGIST - 02/23/2025 11:04 AM EDT POST NAIL SURGERY INSTRUCTIONS: General Information: Stay off your feet as much as possible today. You may wear any shoe, sandal, or open toe footwear that does not squeeze or constrict your toe. Your toe may remain numb for up to 6-10 hours after the procedure. Bleeding/ Drainage: Slight bleeding, discoloration and/ or red, pink, orange drainage is normal. Discomfort: You can elevate your foot to help alleviate minor swelling, bleeding and discomfort. You may also take aspirin, Tylenol or other over- the- counter pain relievers as directed on the package. If pain is not controlled to your comfort, please contact our office. Removing the surgical bandage/ dressing: The day after the surgery, carefully remove the dressing and shower/ bathe as normal. If the gauze or dressing sticks to the surgical area, dampen it with water or shower/ bathe with the dressing in place. This will make the dressing easier to remove with minimal discomfort. Blot dry with a clean cloth. A band-aid and antibiotic ointment should be changed twice daily on the surgical area until your follow-up appointment with the provider. Soaking Instructions Remove the dressing the day after your procedure and shower/ bathe as normal. Blot dry with a clean cloth. Soak the foot twice daily in warm soapy water or use a mixture of 1 quart warm water with cup Epsom salts. After soaking, apply antibiotic ointment and a Band-Aid twice daily until follow-up appointment. documented in this [id number] NoteNEW Patient Visit Maria R Rees DPM Patient Name: Terrie Allen. . Date of : 1980, 44 y.o.. Gender: male. Subjective: Patient is a pleasant 44-year-old male who presents to clinic concerned about an ingrown toenail to the left great toe. States that this has been ongoing for 1 year. States that he consciously trim the toenail so it does not become ingrown. Patient stated he cuts it straight. Reports that on the right great toe, he had a similar issue and after ingrown toenail surgery, he has not had any issues with pain or discomfort with ambulation. No other pedal complaint at this time. Denies fevers, chills, nausea, vomiting, chest pain, shortness of breath, or any other constitutional symptoms. Past Medical History: Diagnosis Date Abdominal pain Actinomyces infection Alteration in skin integrity related to surgical incision Anaerobic bacterial infection Chronic anticoagulation Diarrhea due to drug Dyspepsia and disorder of function of stomach Eczema Enterococcus faecalis infection Finger sprain Intra-abdominal abscess (HCC) Intraabdominal fluid collection Irritable bowel syndrome Moderate protein-calorie malnutrition Motion sickness Open wnd anterior abdomen Postprocedural intraabdominal abscess (HCC) Pseudomonas aeruginosa infection Thrombus Wound dehiscence Past Surgical History: Procedure Laterality Date ANKLE SURGERY Right COLON SURGERY patrtial removal HERNIA REPAIR intestine partial removal left clavicle repair with plate Left 2005 PICC LINE INSERTION N/A 02/03/2024 SIGMOIDOSCOPY FLX N/A 12/18/2005 Social History [1] Physical Examination: BP 127/75 (BP Location: Right arm, Patient Position: Sitting, BP Cuff Size: Adult) Pulse 73 Temp 98.2 degrees F (36.8 degrees C) (Oral) General Appearance: Alert, cooperative, no distress, appears stated age. Podiatric Exam Vascular: DP and PT pulses are palpable 2/4. Capillary refill time is less than 3 secs to distal digits. Skin temperature is warm to warm from proximal tibial tuberosity to distal digit. No appreciable edema to bilateral foot or ankle Neurological: Gross sensation is intact. Protective sensation is intact. Dermatologic: The medial border of the left great toenail is mildly incurvated into the nailbed. No surrounding erythema, edema or any acute signs infection. Interdigital spaces are clean dry and intact. Musculoskeletal: Pain on palpation to the medial border of the left great toenail. Slight overlapping of the left second toe onto the great toe. Ankle joint range of motion is intact. Muscle strength is 5/5 to dorsiflexors, plantar flexors, inverters and everters. Compartments soft and compressible. No calf pain Diagnoses: 1. Onychocryptosis 2. Onychodystrophy 3. Hammertoe of second toe of left foot Imaging: Not required at this visit Assessment/Plan: Patient was seen and evaluated. Discussed all clinical findings. Patient has mild onychocryptosis of the left great toenail. Patient also has slight overlapping of the left second toe onto the hallux which may worsen issues with ingrown toenails. Discussed and recommended phenol matricectomy procedure to prevent recurrence of ingrown toenail and to alleviate pain and discomfort with ambulation. Patient is agreeable to proceed with surgery accordingly. Discussed risk of procedure consisting of pain, numbness, tingling, infection, recurrence. Patient is to follow-up in 2 weeks for scheduled nail surgery on the left great toe using phenol matrixectomy. All questions were answered to patient satisfaction. Patient understands to call with any questions or concerns. This note was partially created using voice recognition software and is inherently subject to errors including those of syntax and "sound-alike" substitutions which may escape proofreading. In such instances, original meaning may be extrapolated by contextual derivation. Maria R Rees DPM, MS Podiatric Physician & Surgeon [1] Social History Socioeconomic History Marital status: Tobacco Use Smoking status: Never Smokeless tobacco: Never Substance and Sexual Activity Alcohol use: Never Drug use: Never Social Drivers of Health Food Insecurity: No Food Insecurity (03/22/2024) Received from [facility] Hunger Vital Sign Worried About Running Out of Food in the Last Year: Never true Ran Out of Food in the Last Year: Never true Transportation Needs: No Transportation Needs (03/22/2024) Received from [facility] PRAPARE - Transportation Lack of Transportation (Medical): No Lack of Transportation (Non-Medical): No Housing Stability: Low Risk (03/22/2024) Received from [facility] Housing Stability Vital Sign Unable to Pay for Housing in the Last Year: No Number of Places Lived in the Last Year: 1 Unstable Housing in the Last Year: No AUTHENTICATED BY KARON (more content not included)...[facility] 02-09-2025 History of Present illness Narrative* Maria R Rees DPM - 02/09/2025 4:40 PM EDT Images from the original note were not included. NEW Patient Visit Maria R Rees DPM Patient Name: Terrie Allen. . Date of : 1980, 44 y.o.. Gender: male. Subjective: Patient is a pleasant 44-year-old male who presents to clinic concerned about an ingrown toenail tothe left great toe. States that this has been ongoing for 1 year. States that he consciously trim the toenail so it does not become ingrown. Patient stated he cuts it straight. Reports that on the right great toe, he had a similar issue and after ingrown toenail surgery, he has not had any issues wi th pain or discomfort with ambulation. No other pedal complaint at this time. Denies fevers, chills, nausea, vomiting, chest pain, shortness of breath, or any other constitutional symptoms. Past Medical History: Diagnosis Date Abdominal pain Actinomyces infection Alteration in skin integrity related to surgical incision Anaerobic bacterial infection Chronic anticoagulation Diarrhea due to drug Dyspepsia and disorder of function of stomach Eczema Enterococcus faecalis infection Finger sprain Intra-abdominal abscess (HCC) Intraabdominal fluid collection Irritable bowel syndrome Moderate protein-calorie malnutrition Motion sickness Open wnd anterior abdomen Postprocedural intraabdominal abscess (HCC) Pseudomonas aeruginosa infection Thrombus Wound dehiscence Past Surgical History: Procedure Laterality Date ANKLE SURGERY Right COLON SURGERY patrtial removal HERNIA REPAIR intestine partial removal left clavicle repair with plate Left 2005 PICC LINE INSERTION N/A 02/03/2024 SIGMOIDOSCOPY FLX N/A 12/18/2005 Social History [1] Physical Examination: BP 127/75 (BP Location: Right arm, Patient Position: Sitting, BP Cuff Size: Adult) Pulse 73 Temp 98.2 F (36.8 C) (Oral) General Appearance: Alert, cooperative, no distress, appears stated age. Podiatric Exam Vascular: DP and PT pulses are palpable 2/4. Capillary refill time is less than 3 secs to distal digits. Skin temperature is warm to warm from proximal tibial tuberosity to distal digit. No appreciable edema to bilateral foot or ankle Neurological: Gross sensation is intact. Protective sensation is intact. Dermatologic: The medial border of the left great toenail is mildly incurvated into the nailbed. Nosurrounding erythema, edema or any acute signs infection. Interdigital spaces are clean dry and intact. Musculoskeletal: Pain on palpation to the medial border of the left great toenail. Slight overlapping of the left second toe onto the great toe. Ankle joint range of motion is intact. Muscle strengthis 5/5 to dorsiflexors, plantar flexors, inverters and everters. Compartments soft and compressible. No calf pain Diagnoses: 1. Onychocryptosis 2. Onychodystrophy 3. Hammertoe of second toe of left foot Imaging: Not required at this visit Assessment/Plan: Patient was seen and evaluated. Discussed all clinical findings. Patient has mild onychocryptosis of the left great toenail. Patient also has slight overlapping of the left second toe onto the hallux which may worsen issues with ingrown toenails. Discussed and recommended phenol matricectomy procedure to prevent recurrence of ingrown toenail and to alleviate pain and discomfort with ambulation. Patient is agreeable to proceed with surgery accordingly. Discussed risk of procedure consisting of pain, numbness, tingling, infection, recurrence. Patient is to follow-up in 2 weeks for scheduled nail surgery on the left great toe using phenol matrixectomy. All questions were answered to patient satisfaction. Patient understands to call with any questionsor concerns. This note was partially created using voice recognition software and is inherently subject to errors including those of syntax and "sound-alike" substitutions which may escape proofreading. In such instances, original meaning may be extrapolated by contextual derivation. Maria R Rees DPM, MS Podiatric Physician & Surgeon [1] Social History Socioeconomic History Marital status: Tobacco Use Smoking status: Never Smokeless tobacco: Never Substance and Sexual Activity Alcohol use: Never Drug use: Never Social Drivers of Health Food Insecurity: No Food Insecurity (03/22/2024) Received from [facility] Hunger Vital Sign Worried About Running Out of Food in the Last Year: Never true Ran Out of Food in the Last Year: Never true Transportation Needs: No Transportation Needs (03/22/2024) Received from [facility] PRAPARE - Transportation Lack of Transportation (Medical): No Lack of Transportation (Non-Medical): No Housing Stability: Low Risk (03/22/2024) Received from [facility] Housing Stability Vital Sign Unable to Pay for Housing in the Last Year: No Number of Places Lived in the Last Year: 1 Unstable Housing in the Last Year: No documented in this [id number] History of Present illness Narrative* Violetta Garzon TECHNOLOGIST - 02/08/2025 2:14 PM EDT Abstracted from [facility]. documented in this [id number] Nuclear medicine Diagnostic study note [facility] Imaging Services [address] [place] [address] Hepatobilliary Img w/Pharm Int MR#: [id number] Acct: [id number] Name: TERRIE ALLEN Rep #: [id number] : 1980 M 44 From: Chirag Melo MD PCP: Dr. Geronimo Lemus MD Status: REG CLI Study:Hepatobilliary Img w/Pharm Int Date of Exam: 01/07/25 Exam# [id number] Ordering Dr: Eugenio Robles DO PROCEDURE: HEPATOBILLIARY IMG W/PHARM INT REASON FOR EXAM: NAUSEA TECHNIQUE: Intravenous Choletec with planar imaging of the abdomen. 2 mcg Kinevac intravenously approximately 60 minutes after the radiopharmaceutical with additional anterior imaging and a region of interest drawn around the gallbladder to calculate a time-activity curve. RADIOPHARMACEUTICAL: 5.8 mCi of technetium labeled mebrofenin COMPARISON: Comparison is made with prior CT scan of the abdomen and pelvis dated December 07, 2024. FINDINGS: There is good uptake of the radiopharmaceutical by the liver. Normal gallbladder visualization with the gallbladder identified by 30 minutes. Gallbladder Ejection Fraction: 60 % (Normal is >35%) NM/Hepatobilliary Img w/Pharm Int IMPRESSION: NORMAL HIDA SCAN AND GALLBLADDER EJECTION FRACTION. Reading Location: [id number] CC: Dr. 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 1:25pm Dizziness noneactive November 16, 2024 2:23pm Indigestion noneactive November 16, 2024 2:23pm Anxiety about health noneactive Veto huizar 2024 2:23pm Chronic abdominal pain noneactive Dick martinez 2024 2:23pm Midline back pain noneactive November 16, 2024 2:23pm Loose stools acute November 9:38am Loose stools acute January 12, 2025 8:23am [facility] Work Phone: 1(437) 580-214309-27-2024 History of Present illness Narrative* Emre Morgan, RT(R) - 07/24/2024 3:00 PM EDT Radiology Service Progress Note DATE OF SERVICE: July 24, 2024 TIME: 3:30 PM PATIENT IDENTITY VERIFICATION COMPLETED USING TWO (2) STANDARD IDENTIFIERS: Name and Date of confirmed by patient verbally. FALL SCREENING: Has the patient had 2 falls in the last year or 1 fall with injury or currently using an Ambulatory Assistive Device (Walker, Cane, Wheelchair, Crutches, etc.)? No PATIENT GENDER DATA: Male PATIENT RELEVANT IMPLANT DATA REVIEWED: Yes PATIENT PRESENTS WITH AN IMPLANTABLE OR ATTACHED PLAYGROUND MONITOR: No ALLERGIES: Reviewed and unchanged CONTRAST ALLERGY: NO. EXAM: CT -CONTRAST INDUCED NEPHROPATHY RISK FACTORS: Not applicable CREATININE: Creatinine Date Value Ref Range Status 03/23/2024 0.99 0.73 - 1.22 mg/dL Final 03/22/2024 1.10 0.73 - 1.22 mg/dL Final 03/21/2024 1.05 0.73 - 1.22 mg/dL Final Estimated Glomerular Filtration Rate Date Value Ref Range Status 03/23/2024 97 >=60 mL/min/1.73m Final Comment: Estimated Glomerular Filtration Rate (eGFR) is calculated using the 2020 CKD-EPI creatinine equation. This equation utilizes serum creatinine, sex, and age as parameters. The creatinine assay has traceable calibration to isotope dilution- mass spectrometry. Refer to KDIGO guidelines for clinical interpretation. In patients with unstable renal function, e.g. those with acute kidney injury, the eGFRmay not accurately reflect actual GFR. P.O.C.T. RESULTS: POC done: Yes, See Lab Tab July 24, 2024 TREATMENT: N/A PERIPHERAL IV DATA: Ambulatory: A peripheral IV was started in the Left antecubital site with a Angio cath: 22 gauge. RADIOLOGY DEPARTMENT: CT; Exam(s) Completed: Abdomen/Pelvis SIGNATURE: IVONE Bonilla) PATIENT NAME: Terrie Allen DATE: July 24, 2024 TIME: 3:30 PM [facility] NoteHNO ID: [id number] Author: EMRE MORGAN RT (R) Service: ? Author Type: Clay Miner Type: Progress Notes Filed: 07/24/2024 15:31 Note Text: Radiology Service Progress Note DATE OF SERVICE: July 24, 2024 TIME: 3:30 PM PATIENT IDENTITY VERIFICATION COMPLETED USING TWO (2) STANDARD IDENTIFIERS: Name and Date of confirmed by patient verbally. FALL SCREENING: Has the patient had 2 falls in the last year or 1 fall with injury or currently using an Ambulatory Assistive Device (Walker, Cane, Wheelchair, Crutches, etc.)? No PATIENT GENDER DATA: Male PATIENT RELEVANT IMPLANT DATA REVIEWED: Yes PATIENT PRESENTS WITH AN IMPLANTABLE OR ATTACHED PLAYGROUND MONITOR: No ALLERGIES: Reviewed and unchanged CONTRAST ALLERGY: NO. EXAM: CT -CONTRAST INDUCED NEPHROPATHY RISK FACTORS: Not applicable CREATININE: Creatinine Date Value Ref Range Status 03/23/2024 0.99 0.73 - 1.22 mg/dL Final 03/22/2024 1.10 0.73 - 1.22 mg/dL Final 03/21/2024 1.05 0.73 - 1.22 mg/dL Final Estimated Glomerular Filtration Rate Date Value Ref Range Status 03/23/2024 97 >=60 mL/min/1.73m? Final Comment: Estimated Glomerular Filtration Rate (eGFR) is calculated using the 2020 CKD-EPI creatinine equation. This equation utilizes serum creatinine, sex, and age as parameters. The creatinine assay has traceable calibration to isotope dilution-mass spectrometry. Refer to KDIGO guidelines for clinical interpretation. In patients with unstable renal function, e.g. those with acute kidney injury, the eGFR may not accurately reflect actual GFR. P.O.C.T. RESULTS: POC done: Yes, See Lab Tab July 24, 2024 TREATMENT: N/A PERIPHERAL IV DATA: Ambulatory: A peripheral IV was started in the Left antecubital site with a Angio cath: 22 gauge. RADIOLOGY DEPARTMENT: CT; Exam(s) Completed: Abdomen/Pelvis SIGNATURE: RT Irene(R) PATIENT NAME: Terrie Allen DATE: July 24, 2024 TIME: 3:30 [facility]09-26-2024 Telephone encounter Note* Telephone Encounter - Kevin Corona III, MD - 07/23/2024 4:30 PM EDT Thanks for update. Glad things are improving. Will see what labs and CT show. I think if still with vertigo and there was concern previously for benign paroxysmal positional vertigo would be good to see ENT. [facility]09-26-2024 Miscellaneous Notes* Telephone Encounter - Kevin Corona III, MD - 07/23/2024 4:30 PM EDT Thanks for update. Glad things are improving. Will see what labs and CT show. I think if still with vertigo and there was concern previously for benign paroxysmal positional vertigo would be good to see ENT. * Telephone Encounter - Bernadette Reed RN - 07/22/2024 3:46 PM EDT Patient called office to report progress since stopping azithromycin. Per patient, he still has nausea, intermittent bloating, and a poor appetite when he first gets up in the morning. This graduallyimproves throughout the day. Patient also c/o intermittent dizziness and light headedness, and reports one episode of vertigo while in bed "about two months ago." Patient stated that all of these symptoms have improved, but are still present. Patient has a CT scan and labs scheduled for 07/24. He would also like your opinion on whether he should see an ENT. Bernadette Reed RN documented [facility] Telephone encounter Note * Telephone Encounter - Bernadette Reed RN - 07/22/2024 3:46 PM EDT Patient called office to report progress since stopping azithromycin. Per patient, he still has nausea, intermittent bloating, and a poor appetite when he first gets up in the morning. This graduallyimproves throughout the day. Patient also c/o intermittent dizziness and light headedness, and reports one episode of vertigo while in bed "about two months ago." Patient stated that all of these symptoms have improved, but are still present. Patient has a CT scan and labs scheduled for 07/24. He would also like your opinion on whether he should see an ENT. Bernadette Reed RN [facility] Telephone encounter Note* Telephone Encounter - Víctor Huerta - 07/10/2024 2:19 PM EDT Patient informed V[facility]ctor Huerta [facility] Miscellaneous Notes* Telephone Encounter - Víctor Huerta - 07/10/2024 2:19 PM EDT Patient informed Víctor Huerta * Telephone Encounter - Kevin Corona III, MD - 07/10/2024 8:56 AM EDT It's in now. Sorry for delay. I was going to place when I wrote his note and have not gone back in to do his note yet. He will need to have basic metabolic panel before the CT. CT ordered of abd/pel with oral and IV contrast. Thanks. * Telephone Encounter - Víctor Huerta - 07/09/2024 3:30 PM EDT Patient called today about CT order not being placed. Please advise Víctor Huerta * Telephone Encounter - Louisa Schilling - 07/07/2024 4:13 PM EDT Pt informed waiting for CT order Louisa Schilling * Telephone Encounter - Kevin Corona III, MD - 07/07/2024 3:43 PM EDT He should NOT resume azithromycin. Yes, will order CT. * Telephone Encounter - Louisa Schilling - 07/07/2024 3:28 PM EDT Pt unclear of instruction. Did you want him to have CT? He had labs today. Should he resume azithromycin or should he wait for test results? Thank you Louisa Schilling documented in this encounterSt[facility] Telephone encounter Note * Telephone Encounter - Kevin Corona III, MD - 07/10/2024 8:56 AM EDT It's in now. Sorry for delay. I was going to place when I wrote his note and have not gone back in to do his note yet. He will need to have basic metabolic panel before the CT. CT ordered of abd/pel with oral and IV contrast. Thanks. [facility] Telephone encounter Note* Telephone Encounter - Víctor Huerta - 07/09/2024 3:30 PM EDT Patient called today about CT order not being placed. Please advise Víctor Huerta [facility] Telephone encounter Note* Telephone Encounter - Louisa Schilling - 07/07/2024 4:13 PM EDT Pt informed waiting for CT order Louisa Schilling [facility] Telephone encounter Note* Telephone Encounter - Kevin Corona III, MD - 07/07/2024 3:43 PM EDT He should NOT resume azithromycin. Yes, will order CT. [facility] Telephone encounter Note* Telephone Encounter - Louisa Schilling - 07/07/2024 3:28 PM EDT Pt unclear of instruction. Did you want him to have CT? He had labs today. Should he resume azithromycin or should he wait for test results? Thank you Louisa Schilling [facility] NoteHNO ID: [id number] Author: KEVIN CORONA III, MD Service: ? Author Type: Physician Type: Progress Notes Filed: 07/21/2024 10:12 Note Text: VIRTUAL VISIT PROGRESS NOTE This is a virtual visit using [employer] Video Visit. It required patient-provider interaction for the medical decision making as documented below. I have communicated my name and active licensure. The patient's identity and physical location were verified at the time of this visit. Either the patient or their legal risk control field representative has been informed of the risks and benefits of -- and alternatives to -- treatment through a remote evaluation and consents to proceed with the evaluation remotely. Terrie Allen is a 43 year old male seen for abdominal abscess. Originally had intussusception and inflammatory mass in December. Transferred to us from outside hospital. Had mixed anaerobes, enterococcus, e. Coli, pseudomonas and also had actinomyces. Source control was via IR guided drain on 01/30. He originally was on IV zosyn. Then to treat the actinomyces he was on amoxicillin. This was causing nausea and dyspepsia so we changed to doxycycline. He was not able to tolerate the doxycycline as he had nausea. So we then changed him to penicillin VK (03/18). This also caused GI upset so he was changed to azithromycin. He called the office on 04/10 and said this was causing issues. Initially with nausea and abdominal issues but also concerned about depression. Original plan was to treat until beginning of August. Not feeling well at all in the morning. Can't turn head too fast. Gets motion sickness. A month ago sleeping in bed. Rolled over. Got vertigo. Did letitia maneuvers. You tubed the letitia maneuver. That helped a lot. Back and neck in pain. Chiropractor. Motion sickness feeling not associated with vertigo. Was going on before this. Prilosec after scope. Fiber pill, probiotic, tevin. No pain from the intra-abd issues. Has indigestion. Feels best 1-2pm. No fevers, chills Yes- CARRIZALES bitemporal. Started to go away with chiropractor. Hot flashes. Loss of appetite- better. +LH. HISTORY REVIEWED (electronic chart updated): PAST MEDICAL HISTORY 12/18/05: Diarrhea No date: Irritable bowel syndrome Comment: Irritable bowel PAST SURGICAL HISTORY No date: PAST SURGICAL HISTORY OF Comment: left clavicle repair with plate,200402/03/2024: PICC LINE INSERTION (PICC TEAM) ([place]) 12/18/05: SIGMOIDOSCOPY FLX DX W/COLLJ SPEC BR/WA IF PFRMD FAMILY HISTORY Problem Relation Age of Onset Diabetes Father Diabetes Maternal Grandfather Cancer Paternal Grandmother Stroke Paternal Grandfather Social History Tobacco Use Smoking status: Never Substance Use Topics Alcohol use: No Current Outpatient Medications Medication Sig azithromycin (ZITHROMAX) 500 mg tablet Take 1 tablet by mouth once daily. LORazepam (ATIVAN) 0.5 mg Take 1 mg by mouth three times a day as needed. famotidine (PEPCID) 20 mg tablet Take 20 mg by mouth two times a day as needed. ondansetron orally disintegrating (ZOFRAN ODT) 4 mg disintegrating tablet Take 1 tablet by mouth every 8 hours as needed for nausea/vomiting for up to 30 doses. apixaban (ELIQUIS) 5 mg tab(s) Take 5 mg by mouth two times a day. acetaminophen (TYLENOL) 325 mg tablet Take 3 tablets by mouth four times daily. ondansetron (ZOFRAN) 4 mg tablet Take 1 tablet by mouth every 8 hours as needed for nausea/vomiting. No current facility-administered medications for this visit. ALLERGIES No Known Allergies REVIEW OF SYSTEMS: As noted in HPI PHYSICAL EXAMINATION: VIDEO EXAM: (if completed, performed via video enabled technology) Looks well. No distress. 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 Going to stop this at this point. PLAN: Stop azithromycin CT abdomen for new baseline Let's plan for video visit again in July There are no Patient Instructions on file for this visit. I spent a total of 30 minutes on the date of the service which included preparing to see the patient, [id number] patient care, and completing clinical documentation Kevin Corona III, [facility]09-09-2024 History of Present illness Narrative* Kevin Corona III, MD - 07/06/2024 2:25 PM EDT VIRTUAL VISIT PROGRESS NOTE This is a virtual visit using [employer] Zoom Video Visit. It required patient- provider interaction for the medical decision making as documented below. I have communicated my name and active licensure. The patient's identity and physical location wereverified at the time of this visit. Either the patient or their legal risk control field representative has been informed of the risks and benefits of -- and alternatives to -- treatment through a remote evaluation andconsents to proceed with the evaluation remotely. Terrie Allen is a 43 year old male seen for abdominal abscess. Originally had intussusception and inflammatory mass in December. Transferred to us from outside hospital. Had mixed anaerobes, enterococcus, e. Coli, pseudomonas and also had actinomyces. Source control was via IR guided drain on 01/30. He originally was on IV zosyn. Then to treat the actinomyces he was on amoxicillin. This was causing nausea and dyspepsia so we changed to doxycycline. He was not able to tolerate the doxycycline as he had nausea. So we then changed him to penicillin VK (03/18). This also caused GI upset so he was changed to azithromycin. He called the office on 04/10 and said this was causing issues. Initially with nausea and abdominal issues but also concerned about depression. Original plan was to treat until beginning of August. Not feeling well at all in the morning. Can't turn head too fast. Gets motion sickness. A month agosleeping in bed. Rolled over. Got vertigo. Did letitia maneuvers. You tubed the letitia maneuver. That helped a lot. Back and neck in pain. Chiropractor. Motion sickness feeling not associated with vertigo. Was going on before this. Prilosec after scope. Fiber pill, probiotic, tevin. No pain from the intra-abd issues. Has indigestion. Feels best 1-2pm. No fevers, chills Yes- CARRIZALES bitemporal. Started to go away with chiropractor. Hot flashes. Loss of appetite- better. +LH. HISTORY REVIEWED (electronic chart updated): PAST MEDICAL HISTORY 12/18/05: Diarrhea No date: Irritable bowel syndrome Comment: Irritable bowel PAST SURGICAL HISTORY No date: PAST SURGICAL HISTORY OF Comment: left clavicle repair with plate,200402/03/2024: PICC LINE INSERTION (PICC TEAM) ([place]) 12/18/05: SIGMOIDOSCOPY FLX DX W/COLLJ SPEC BR/WA IF PFRMD FAMILY HISTORY Problem Relation Age of Onset Diabetes Father Diabetes Maternal Grandfather Cancer Paternal Grandmother Stroke Paternal Grandfather Social History Tobacco Use Smoking status: Never Substance Use Topics Alcohol use: No Current Outpatient Medications Medication Sig azithromycin (ZITHROMAX) 500 mg tablet Take 1 tablet by mouth once daily. LORazepam (ATIVAN) 0.5 mg Take 1 mg by mouth three times a day as needed. famotidine (PEPCID) 20 mg tablet Take 20 mg by mouth two times a day as needed. ondansetron orally disintegrating (ZOFRAN ODT) 4 mg disintegrating tablet Take 1 tablet by mouth every 8 hours as needed for nausea/vomiting for up to 30 doses. apixaban (ELIQUIS) 5 mg tab(s) Take 5 mg by mouth two times a day. acetaminophen (TYLENOL) 325 mg tablet Take 3 tablets by mouth four times daily. ondansetron (ZOFRAN) 4 mg tablet Take 1 tablet by mouth every 8 hours as needed for nausea/vomiting. No current facility-administered medications for this visit. ALLERGIES No Known Allergies REVIEW OF SYSTEMS: As noted in HPI PHYSICAL EXAMINATION: VIDEO EXAM: (if completed, performed via video enabled technology) Looks well. No distress. 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 Going to stop this at this point. PLAN: Stop azithromycin CT abdomen for new baseline Let's plan for video visit again in July There are no Patient Instructions on file for this visit. I spent a total of 30 minutes on the date of the service which included preparing to see the patient, [id number] patient care, and completing clinical documentation Kevin Corona III, MD documented in this encounterSt. [facility] Telephone encounter Note * Telephone Encounter - Víctor Huerta - 06/09/2024 10:20 AM EDT Patient notified. Víctor Huerta [facility] Miscellaneous Notes* Telephone Encounter - Víctor Huerta - 06/09/2024 10:20 AM EDT Patient notified. Víctor Huerta * Telephone Encounter - Kevin Corona III, MD - 06/08/2024 10:58 AM EDT Will do. Thanks. New rx for azithromycin pill through 08/21 sent to his [facility]. * Telephone Encounter - Víctor Huerta - 06/08/2024 9:29 AM EDT Patient called with an update of the liquid form of Zithromax. Patient states that there was not a difference but prefers pill form because its easier. Patient is requesting if you could write a script for pill form. Please advise. Víctor Huerta documented in this encounterSt. [facility]08-12-2024 Telephone encounter Note * Telephone Encounter - Kevin Corona III, MD - 06/08/2024 10:58 AM EDT Will do. Thanks. New rx for azithromycin pill through 08/21 sent to his [facility]. [facility] Telephone encounter Note* Telephone Encounter - Víctor Huerta - 06/08/2024 9:29 AM EDT Patient called with an update of the liquid form of Zithromax. Patient states that there was not a difference but prefers pill form because its easier. Patient is requesting if you could write a script for pill form. Please advise. Víctor Huerta [facility]08[facility]2024 [facility] Medical Records Department [address] [place] [id number] History Physical Exam 06/04/24 0956 MR#: [id number] Acct: [id number] Name: TERRIE ALLEN Rep #: [id number] : 1980 44 From: Ricco García MD PCP: Dr. Geronimo Lemus MD Status:REG [facility] [place] Location: [place] [address] History and Physical Date of Admission: 06/04/24 I have examined the patient and the H P has been reviewed. There are no clinical changes since date of exam.Mr. Allen shares that overall he is better, however, he continues to have nausea and dizziness each morning. He is eagerly looking forward to going back to work, however, he has learned that he and his colleagues have been furloughed so he is starting to investigate his options. Plans for today's procedure as well as post procedure reporting of biopsy results were discussed. Questions were answered from both him and his . mL proceed to endoscopy suite for EGD to better evaluate the cause of his morning time nausea and upper abdominal discomfort. 06/04/24 0958 Cosigner Signature (if applicable): CC: Dr. Geronimo Lemus MD; Dr. Ricco García MD [facility] Telephone encounter Note* Telephone Encounter - Bernadette Reed RN - 05/28/2024 1:09 PM EDT Patient scheduled for 07/06/24 at 1430. I will fax this note to [facility] Bernadette Reed RN [facility]08-[facility]2024 Miscellaneous Notes* Telephone Encounter - Bernadette Reed RN - 05/28/2024 1:09 PM EDT Patient scheduled for 07/06/24 at 1430. I will fax this note to [facility] Bernadette Reed RN * Telephone Encounter - Kevin Corona III, MD - 05/28/2024 12:[address] report. Noted thick walled fluid collection measures 2 x 1.7cm. my opinion would be that we repeat imaging at end of antibiotic therapy unless surgery team feels needs to be done sooner. I see they noted patient hoping to stop azithromycin prior to 6 months. With the actinomyces and genevieve course would prefer the full six months. Let's schedule him for visit (either in person or virtual) in one of the next couple of office blocks. Please let Dr. García and Ni Alexander from [facility] surgical associates know what I'm thinking (couldjust send this note). Thanks. Will reach out to them again after visit with patient. * Telephone Encounter - Bernadette Reed RN - 05/28/2024 12:25 PM EDT Telephone call from TRISTEN García with [facility]. Ni asked if patient needs further imaging prior to stopping antibiotics. Her last office notes and patient's last CT report from 04-03-24 have been placed in your folder for review. Also, does patient still need a virtual appointment scheduled? Bernadette Reed RN documented in this encounterSt. [facility]08-[facility]-2024 Telephone encounter Note * Telephone Encounter - Kevin Corona III, MD - 05/28/2024 12:[address] report. Noted thick walled fluid collection measures 2 x 1.7cm. my opinion would be that we repeat imaging at end of antibiotic therapy unless surgery team feels needs to be done sooner. I see they noted patient hoping to stop azithromycin prior to 6 months. With the actinomyces and genevieve course would prefer the full six months. Let's schedule him for visit (either in person or virtual) in one of the next couple of office blocks. Please let Dr. García and Ni Alexander from [facility] surgical associates know what I'm thinking (couldjust send this note). Thanks. Will reach out to them again after visit with patient. [facility] Telephone encounter Note* Telephone Encounter - Bernadette Reed RN - 05/28/2024 12:25 PM EDT Telephone call from TRISTEN García with [facility]. Ni asked if patient needs further imaging prior to stopping antibiotics. Her last office notes and patient's last CT report from 04-03-24 have been placed in your folder for review. Also, does patient still need a virtual appointment scheduled? Bernadette Reed RN [facility]2024 NoteHNO ID: [id number] Author: KEVIN CORONA III, MD Service: ? Author Type: Physician Type: Progress Notes Filed: 05/06/2024 21:59 Note Text: VIRTUAL VISIT PROGRESS NOTE This is a virtual visit using [employer] Video Visit. It required patient-provider interaction for the medical decision making as documented below. I have communicated my name and active licensure. The patient's identity and physical location were verified at the time of this visit. Either the patient or their legal risk control field representative has been informed of the risks and benefits of -- and alternatives to -- treatment through a remote evaluation and consents to proceed with the evaluation remotely. Terrie Allen is a 43 year old male seen for abdominal abscess. Originally had intussusception and inflammatory mass in December. Transferred to us from outside hospital. Had mixed anaerobes, enterococcus, e. Coli, pseudomonas and also had actinomyces. Source control was via IR guided drain on 01/30. He originally was on IV zosyn. Then to treat the actinomyces he was on amoxicillin. This was causing nausea and dyspepsia so we changed to doxycycline. He was not able to tolerate the doxycycline as he had nausea. So we then changed him to penicillin VK (03/18). This also caused GI upset so he was changed to azithromycin. He called the office on 04/10 and said this was causing issues. Initially with nausea and abdominal issues but also concerned about depression. Original plan was to treat until beginning of August. This was the read from his CT on 03/20 Little bits of anxiety with this and . Worse this past week. Better GI sx. Last pill Saturday night. really bad anxiety. Couldn't control it. Couldn't calm down. Saturday still same symptoms. Really anxious 6 to 9pm. Wound still not healing. 3/4 inch deep. Diameter 3/16 inch. Wound constantly weighs on my mind. Went to [facility]. Got IV ativan to relax me. Now on prn ativan. Saturday better. Saturday was great day. Ativan- Saturday 11am then at night. Saturday took 3 doses. Took one this am. Azithro. Nausea. Hot flashes. [place] minor. Occasional diarrhea. Loss of appetite and motivation. Repeat CT scan last Saturday. Dr. Ricco García. 04/03. 'Showed signs of shrinking' Primary care doc- Dr. Dong, Pearl or Geronimo HISTORY REVIEWED (electronic chart updated): PAST MEDICAL HISTORY Diagnosis Date Diarrhea 12/18/05 Irritable bowel syndrome Irritable bowel PAST SURGICAL HISTORY Procedure Laterality Date PAST SURGICAL HISTORY OF left clavicle repair with plate,2004 PICC LINE INSERTION (PICC TEAM) ([place]) 02/03/2024 SIGMOIDOSCOPY FLX DX W/COLLJ SPEC BR/WA IF PFRMD 12/18/05 FAMILY HISTORY Problem Relation Age of Onset Diabetes Father Diabetes Maternal Grandfather Cancer Paternal Grandmother Stroke Paternal Grandfather Social History Tobacco Use Smoking status: Never Substance Use Topics Alcohol use: No Current Outpatient Medications Medication Sig ondansetron orally disintegrating (ZOFRAN ODT) 4 mg disintegrating tablet Take 1 tablet by mouth every 8 hours as needed for nausea/vomiting for up to 30 doses. apixaban (ELIQUIS) 5 mg tab(s) Take 5 mg by mouth two times a day. azithromycin (ZITHROMAX) 500 mg tablet Take 1 tablet by mouth once daily. acetaminophen (TYLENOL) 325 mg tablet Take 3 tablets by mouth four times daily. ondansetron (ZOFRAN) 4 mg tablet Take 1 tablet by mouth every 8 hours as needed for nausea/vomiting. No current facility-administered medications for this visit. ALLERGIES No Known Allergies REVIEW OF SYSTEMS: As noted in HPI PHYSICAL EXAMINATION: VIDEO EXAM: (if completed, performed via video enabled technology) Looks well. No distress. 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 He and I discussed that I do not expect that this is related to the azithromycin. PLAN: Rec primary care re: TODD med Resume azithromycin Video visit 1 month There are no Patient Instructions on file for this visit. I spent a total of 35 minutes on the date of the service which included preparing to see the patient, [id number] patient care, and completing clinical documentation Kevin Corona III, [facility]06[facility] History of Present illness Narrative* Kevin Corona III, MD - 04/13/2024 8:22 AM EDT VIRTUAL VISIT PROGRESS NOTE This is a virtual visit using [employer] Zoom Video Visit. It required patient- provider interaction for the medical decision making as documented below. I have communicated my name and active licensure. The patient's identity and physical location wereverified at the time of this visit. Either the patient or their legal risk control field representative has been informed of the risks and benefits of -- and alternatives to -- treatment through a remote evaluation andconsents to proceed with the evaluation remotely. Terrie Allen is a 43 year old male seen for abdominal abscess. Originally had intussusception and inflammatory mass in December. Transferred to us from outside hospital. Had mixed anaerobes, enterococcus, e. Coli, pseudomonas and also had actinomyces. Source control was via IR guided drain on 01/30. He originally was on IV zosyn. Then to treat the actinomyces he was on amoxicillin. This was causing nausea and dyspepsia so we changed to doxycycline. He was not able to tolerate the doxycycline as he had nausea. So we then changed him to penicillin VK (03/18). This also caused GI upset so he was changed to azithromycin. He called the office on 04/10 and said this was causing issues. Initially with nausea and abdominal issues but also concerned about depression. Original plan was to treat until beginning of August. This was the read from his CT on 03/20 Little bits of anxiety with this and . Worse this past week. Better GI sx. Last pill Saturday night. really bad anxiety. Couldn't control it. Couldn't calm down. Saturday still same symptoms. Really anxious 6 to 9pm. Wound still not healing. 3/4 inch deep. Diameter 3/16 inch. Wound constantly weighs on my mind. Went to [facility]. Got IV ativan to relax me. Now on prn ativan. Saturday better. Saturday was great day. At- Saturday 11am then at night. Saturday took 3 doses. Took one this am. Azithro. Nausea. Hot flashes. [place] minor. Occasional diarrhea. Loss of appetite and motivation. Repeat CT scan last Saturday. Dr. Ricco García. 04/03. 'Showed signs of shrinking' Primary care doc- Dr. Dong, [facility] or Geronimo HISTORY REVIEWED (electronic chart updated): PAST MEDICAL HISTORY Diagnosis Date Diarrhea 12/18/05 Irritable bowel syndrome Irritable bowel PAST SURGICAL HISTORY Procedure Laterality Date PAST SURGICAL HISTORY OF left clavicle repair with plate,2004 PICC LINE INSERTION (PICC TEAM) ([place]) 02/03/2024 SIGMOIDOSCOPY FLX DX W/COLLJ SPEC BR/WA IF PFRMD 12/18/05 FAMILY HISTORY Problem Relation Age of Onset Diabetes Father Diabetes Maternal Grandfather Cancer Paternal Grandmother Stroke Paternal Grandfather Social History Tobacco Use Smoking status: Never Substance Use Topics Alcohol use: No Current Outpatient Medications Medication Sig ondansetron orally disintegrating (ZOFRAN ODT) 4 mg disintegrating tablet Take 1 tablet by mouth every 8 hours as needed for nausea/vomiting for up to 30 doses. apixaban (ELIQUIS) 5 mg tab(s) Take 5 mg by mouth two times a day. azithromycin (ZITHROMAX) 500 mg tablet Take 1 tablet by mouth once daily. acetaminophen (TYLENOL) 325 mg tablet Take 3 tablets by mouth four times daily. ondansetron (ZOFRAN) 4 mg tablet Take 1 tablet by mouth every 8 hours as needed for nausea/vomiting. No current facility-administered medications for this visit. ALLERGIES No Known Allergies REVIEW OF SYSTEMS: As noted in HPI PHYSICAL EXAMINATION: VIDEO EXAM: (if completed, performed via video enabled technology) Looks well. No distress. 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 He and I discussed that I do not expect that this is related to the azithromycin. PLAN: Rec primary care re: TODD med Resume azithromycin Video visit 1 month There are no Patient Instructions on file for this visit. I spent a total of 35 minutes on the date of the service which included preparing to see the patient, [id number] patient care, and completing clinical documentation Kevin Corona III, MD [facility] Tele[facility] encounter Note * Telephone Encounter - Louisa Schilling - 04/10/2024 1:22 PM EDT Pt informed and agreed Louisa Schilling [facility] Miscellaneous Notes* Telephone Encounter - Louisa Schilling - 04/10/2024 1:22 PM EDT Pt informed and agreed Louisa Schilling * Telephone Encounter - Kevin Corona III, MD - 04/10/2024 1:13 PM EDT I'm a little worried about switching back to doxycycline as we had transitioned him off of that before due to intolerance. Tell him to stay off of antibiotics over the weekend and let's do virtual visit on Saturday for next steps. Let's plan for 830 if that is ok with him. * Telephone Encounter - Louisa Schilling - 04/10/2024 8:42 AM EDT Pt states azithromycin is causing nausea and abdominal issues. He has tried taking this with and without food. He started taking it at night to "sleep through" the side effects. He feels this is causing lack of motivation and maybe some depression. 04/08/2024 is the last time he took azithromycin. Symptoms seem to improve. He is asking you to switch antibiotics. He is very concerned about becoming depressed. Can he take doxycycline? Would this be an option? He does have about 6 tablets of this at home. Please advise Louisa Schilling documented in this encounterSt. [facility] Telephone encounter Note * Telephone Encounter - Kevin Corona III, MD - 04/10/2024 1:13 PM EDT I'm a little worried about switching back to doxycycline as we had transitioned him off of that before due to intolerance. Tell him to stay off of antibiotics over the weekend and let's do virtual visit on Saturday for next steps. Let's plan for 830 if that is ok with him. [facility] Telephone encounter Note* Telephone Encounter - Louisa Schilling - 04/10/2024 8:42 AM EDT Pt states azithromycin is causing nausea and abdominal issues. He has tried taking this with and without food. He started taking it at night to "sleep through" the side effects. He feels this is causing lack of motivation and maybe some depression. 04/08/2024 is the last time he took azithromycin. Symptoms seem to improve. He is asking you to switch antibiotics. He is very concerned about becoming depressed. Can he take doxycycline? Would this be an option? He does have about 6 tablets of this at home. Please advise Louisa Schilling [facility] Telephone encounter Note* Telephone Encounter - Bernadette Reed RN - 03/26/2024 3:10 PM EDT I attempted to call Trudy, but could only hear static. Detailed voicemail left for patient. Bernadette Reed RN [facility] Miscellaneous Notes* Telephone Encounter - Bernadette Reed RN - 03/26/2024 3:10 PM EDT I attempted to call Trudy, but could only hear static. Detailed voicemail left for patient. Bernadette Reed RN * Telephone Encounter - Eugenio Colon MD - 03/26/2024 2:55 PM EDT Yes, please continue to take both. Thanks Eugenio Colon MD * Telephone Encounter - Bernadette Reed RN - 03/26/2024 9:03 AM EDT ADDI Yates with [facility], called to report a potential severe druginteraction between azithromycin and ondansetron. Patient was advised by pharmacist to take at least an hour apart. Please advise if patient can keep taking both. Bernadette Reed RN documented in this encounterSt. [facility]05-[facility] Telephone encounter Note * Telephone Encounter - Eugenio Colon MD - 03/26/2024 2:55 PM EDT Yes, please continue to take both. Thanks Eugenio Colon MD [facility] Work Phone: [phone] 308-136105-30-2024 Telephone encounter Note* Telephone Encounter - Bernadette Reed RN - 03/26/2024 9:03 AM EDT ADDI Yates with [facility], called to report a potential severe druginteraction between azithromycin and ondansetron. Patient was advised by pharmacist to take at least an hour apart. Please advise if patient can keep taking both. Bernadette Reed RN [facility]2024 NoteHNO ID: [id number] Author: RUSLAN BRIDGES RN Service: Care Management Author Type: Registered Nurse Type: Care Mgt Progress Note Filed: 03/23/2024 11:16 Note Text: CARE MANAGEMENT DISCHARGE NOTE SERVICE DATE: March 23, 2024 SERVICE TIME: 11:15 AM Admission Date: 03/21/2024 LOS: 2 days Discharge Arrangement Discharge Arrangement: Home with Self Care Services Arranged Medical Services: Other: See Comment (N/A) Provider Name: N/A Phone: N/A Caregiver Assessment Caregiver is ready, willing and able to meet the patient's needs as recommended by the inter-professional team: No Caregiver needed Transportation Arrangements Transportation Arrangements: Car Destination: home Handoff Communication: Handoff to: Primary Care Physician Primary Care Physician Name/Phone: follow up with resources Additional Information: Patient discharged with self care. Patient's spouse will provide DC transportation. SIGNATURE: Ruslan Bridges RN PATIENT NAME: Terrie Allen DATE: March 23, 2024 TIME: 11:15 AM CONTACT #: [phone] NoteHNO ID: [id number] Author: HA RANGEL RN Service: Care Management Author Type: Registered Nurse Type: Care Mgt Initial Assessment Filed: 03/22/2024 13:11 Note Text: CARE MANAGEMENT: ASSESSMENT AND DISCHARGE PLAN SERVICE DATE: March 22, 2024 SERVICE TIME: 1:07 PM PCP: No primary care provider on file. Primary Contact: Extended Emergency Contact Information Primary Emergency Contact: allie allen Mobile Relation: Spouse Admission Status: Inpatient Insurance Provider: CLEO SERNA Blaine OOS Discharge Planning requested by: Per Department Practice Potential Transition Plans Home;To Be Determined Advance Directives Current Advance Directive: None Rat Breeder Attempted to Assist with AD Completion: Yes Action: Education Provided Current Living Arrangements and Support Lives with: Children, Spouse/significant other Type of Residence: Private Residence (House) Support: Spouse/significant other, Family members How do you manage to accomplish the following: Independent: Ambulation;Bathe/Shower;Dress;Meals/Meal Prep;Going to the bathroom;Medication Management;Transportation to appointments/community Current Services/Equipment Current Post-Acute Service(s): None Discharge Planning Patient Goal(s): Less pain, General wellness [place] of Choice Explained: [place] of Choice Given: No Reason Not Given: No placements necessary Are you interested in bedside delivery of your medications? No Discharge Planning Participant(s): Patient Patient/Family Comments: Caregiver Assessment: Caregiver is ready, willing and able to meet the patient's needs as recommended by the inter-professional team: No Caregiver needed Transport at Discharge: Transportation Arrangements: Car Destination: home Needs Prior to Discharge: Needs Prior to Discharge: To Be Determined Post-Acute Discharge Plan: Patient is a 43 year old male presented to [facility] with worsening abdominal pain, nausea, and fever. CT abdomen showed postsurgical phlegmonous process and possibly evolving abscess at the operative site. Mr. Allen was transferred to [facility] for further management. 03/21/2024 he was seen by infectious disease and transitioned to oral azithromycin. Patient lives with his and son. Independent with ADLs and does not use DME. Is not active with PCP and his surgeon from [facility] follow for home orders previously. Previous ks patient went home with woundvac ([facility]) and IV antibiotics ([facility] home care). Per patient his IV antibiotics were dcd 3 weeks ago along with his wound vac. He now follows up at an outpatient wound clinic is on oral antibiotics. Per team plan to dc home tomorrow without any skilled needs. He will resume outpatient wound management and oral antibiotics. His can transport him home at ks. CM will continue to follow. SIGNATURE: Ha Rangel RN PATIENT NAME: Terrie Allen DATE: March 22, 2024 TIME: 1:07 PM CONTACT #: [id number] [facility]05-26-2024 Note HNO ID: [id number] Author: MELISSA BLACKMAN, HAND DEICER ELEMENT WINDER.BEAUTY SHOP MANAGER, DNP Service: General Surgery Author Type: Nurse Practitioner Type: Progress Notes Filed: 03/22/2024 10:29 Note Text: Emergency General Surgery Progress Note SERVICE DATE: March 22, 2024 Emergency General Surgery Service Pager: For questions or concerns Mon-Fri 6a-5p please page [phone]. After 5pm and on Weekends and Holidays, please page [phone] if in ICU or [phone] if on RNF. SUBJECTIVE: HPI: Mr. 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 Drain was removed 02/20/2024. IV antibiotics were completed 02/27/2024 and he was transitions to oral. Mr. Allen has been following with Dr. Corona (Infectious Disease) as an outpatient and has been being treated for actinomyces. 03/20/2024 he presented to [facility] with worsening abdominal pain, nausea, and fever. CT abdomen showed postsurgical phlegmonous process and possibly evolving abscess at the operative site. Mr. Allen was transferred to [facility] for further management. 03/21/2024 he was seen by infectious disease and transitioned to oral azithromycin. Hospital day 2: Not feeling completely back to himself, intermittent nausea and abdominal pain Able to tolerate food Denies vomiting, fever, or chills Ambulating in [place] independently Tolerating diet DIET REGULAR OBJECTIVE: Vitals: Temp (24hrs), Av.4 ?C (97.5 ?F), Min:36.3 ?C (97.3 ?F), Max:36.4 ?C (97.6 ?F) BP 107/72 Pulse 77 Temp 36.3 ?C (97.3 ?F) Resp 18 Ht 190.5 cm (6' 3") Wt 88.6 kg (195 lb 4.8 oz) SpO2 96% BMI 24.41 kg/m? O2 Therapy: Room Air IANDO: Date 03/21/24 07 - 03/22/24 0659 03/22/24 07 - 03/23/24 0659 Shift 3180-8054 9783-4127 7975-5991 24 Hour Total 5334-4704 1659-5879 5779-9881 24 Hour Total INTAKE PO 480 120 600 240 240 PO 480 120 600 240 240 Shift Total 480 120 600 240 240 OUTPUT Urine Urine Not Saved. 1 x 3 x 1 x 5 x 1 x 1 x # of BMs Number of BMs 1 x 1 x Shift Total Weight (kg) 88.6 88.6 88.6 88.6 88.6 88.6 88.6 88.6 MEDICATIONS Current Facility-Administered Medications Medication Dose Route Frequency NaCl 0.9% iv flush bag 20 mL INTRAVENOUS PRN ondansetron 4 mg tab(s) (ZOFRAN) 4 mg ORAL q 6 H PRN Or ondansetron (PF) 4 mg injection (ZOFRAN) 4 mg INTRAVENOUS q 6 H PRN azithromycin 500 mg tab(s) (ZITHROMAX) 500 mg ORAL DAILY acetaminophen 975 mg tab(s) (TYLENOL) 975 mg ORAL q 6 H PRN oxyCODONE IR 5-10 mg tab(s) (ROXICODONE) 5-10 mg ORAL q 6 H PRN Labs: Recent Labs 03/22/24 0455 03/21/24 0117 NA 141 138 K 3.9 3.5* CHLOR 104 100 CO2 27 27 BUN 11 11 CREAT 1.10 1.05 GLUC 88 126* ANION 10 11 CA 9.5 9.6 WBC 6.36 9.06 HB 14.4 14.6 HCT 42.8 44.8 PLT 201 228 LACT -- 1.1 Physical Exam: GENERAL: No distress, Alert NEURO: AANDOx3, CN II-XII grossly intact HEENT: normocephalic, atraumatic LUNGS: Unlabored breathing, equal chest rise bilaterally CARDIAC: Regular rate, warm and well perfused distal extremities ABDOMEN: Soft, non-tender, non-distended EXTREMITIES: ESCALANTE, No deformities, No edema SKIN: Skin color, texture, turgor normal, No rashes or lesions. Healing midline abdominal incision with small area of dehiscences at the bottom of the wound- no erythema ASSESSMENT AND PLAN: Assessment Active Hospital Problems Diagnosis Date Noted Intra-abdominal abscess (HCC) 03/21/2024 Assessment: Mr. 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 Drain was removed 02/20/2024. IV antibiotics were completed 02/27/2024 and he was transitions to oral. Mr. Allen has been following with Dr. Corona (Infectious Disease) as an outpatient and has been being treated for actinomyces. 03/20/2024 he presented to [facility] with worsening abdominal pain, nausea, and fever. CT abdomen showed postsurgical phlegmonous process and possibly evolving abscess at the operative site. Mr. Allen was transferred to [facility] for further management. 03/21/2024 he was seen by infectious disease and transitioned to oral azithromycin. 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 Banks SIGNATURE: Melissa Blackman APRN.BEAUTY SHOP MANAGER, DNP PATIENT NAME: Terrie Allen DATE: March 22, 2024 (more content not included)...[facility] 03-20-2024 Telephone encounter Note* Telephone Encounter - Bernadette Reed RN - 03/20/2024 3:01 PM EDT Spoke with patient who verbalized understanding. Patient stated that he has started to feel warm with intermittent chills, as if he might be getting a fever, current temperature is 99.3 F. Patient instructed to go to the ED if he gets a fever or begins to feel worse over the weekend. Bernadette Reed RN [facility] Miscellaneous Notes* Telephone Encounter - Bernadette Reed RN - 03/20/2024 3:01 PM EDT Spoke with patient who verbalized understanding. Patient stated that he has started to feel warm with intermittent chills, as if he might be getting a fever, current temperature is 99.3 F. Patient instructed to go to the ED if he gets a fever or begins to feel worse over the weekend. Bernadette Reed RN * Telephone Encounter - Kevin Corona III, MD - 03/20/2024 2:25 PM EDT That's unfortunate. Let's do 2 things. 1) have him change the penicillin to azithromycin 2) let's check C. Diff and make sure not missing a C. Diff infection * Telephone Encounter - Bernadette Reed RN - 03/20/2024 1:11 PM EDT Patient called to report that he started the penicillin the evening of 03-18-24. Since that time, the loose stools have increased in frequency, and patient has been feeling unwell. Between 0600 and 1230 today, patient reported six loose stools. Please advise. Bernadette Reed RN documented in this encounterSt. [facility]05-[facility] Telephone encounter Note * Telephone Encounter - Kevin Corona III, MD - 03/20/2024 2:25 PM EDT That's unfortunate. Let's do 2 things. 1) have him change the penicillin to azithromycin 2) let's check C. Diff and make sure not missing a C. Diff infection [facility] Telephone encounter Note* Telephone Encounter - Bernadette Reed RN - 03/20/2024 1:11 PM EDT Patient called to report that he started the penicillin the evening of 03-18-24. Since that time, the loose stools have increased in frequency, and patient has been feeling unwell. Between 0600 and 1230 today, patient reported six loose stools. Please advise. Bernadette Reed RN [facility] History of Present illness Narrative* Kevni Corona III, MD - 03/18/2024 2:30 PM EDT VIRTUAL VISIT PROGRESS NOTE This is a virtual visit using MyChart Zoom Video Visit. It required patient- provider interaction for the medical decision making as documented below. I have communicated my name and active licensure. The patient's identity and physical location wereverified at the time of this visit. Either the patient or their legal risk control field representative has been informed of the risks and benefits of -- and alternatives to -- treatment through a remote evaluation andconsents to proceed with the evaluation remotely. 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 He was on amoxicillin for only a week, but was having nausea and dyspepsia and heart burn so was changed to doxycycline. Doxycycline has not been treating him well. Has deep having quite a bit of diarrhea 4-5 per day. Worse in morning. Takes one at 8 and then 2nd one 7-8 p. To bed 9pm or 930. Recently has been taking with food which has not helped. Nauseated when waking up. Instantly going to bathroom within half hour and another within an hour. Every week goes by seems to be better overall in regards to energy level. He does note that his wound is still present and he is following up with his original surgeon because there is some tunnelingat the site. He had questions re: possible probiotic use, why the duration of the six months. I told him since having GI issues at present that I would recommend to take a probiotic twice per day for now. Didn't give recommendation for any one particular probiotic. Said the reason for the long course is due to the nature of actinomyces. While he doesn't have a classic presentation of actinomyces such as lumpy jaw syndrome where recommendations for six months oftherapy are more tried and true, I felt with the complicated clinical picture a longer course of therapy was in order. He asked how we know if six months is long enough or even if the antibiotics that were recently stopped were long enough. I reviewed results of the stop it trial with him regarding stopping the polymicrobial treatment with him supporting that rationale and said that typically with six month course we are in good shape with the actinomyces but to reassure him could consider a CT around that time. HISTORY REVIEWED (electronic chart updated): PAST MEDICAL HISTORY Diagnosis Date Diarrhea 12/18/05 Irritable bowel syndrome Irritable bowel PAST SURGICAL HISTORY Procedure Laterality Date PAST SURGICAL HISTORY OF left clavicle repair with plate,2004 PICC LINE INSERTION ([place]AM) ([place]) 02/03/2024 SIGMOIDOSCOPY FLX DX W/COLLJ SPEC BR/WA IF PFRMD 12/18/05 FAMILY HISTORY Problem Relation Age of Onset Diabetes Father Diabetes Maternal Grandfather Cancer Paternal Grandmother Stroke Paternal Grandfather Social History Tobacco Use Smoking status: Never Substance Use Topics Alcohol use: No Current Outpatient Medications Medication Sig doxycycline monohydrate 100 mg tablet Take 1 tablet by mouth two times a day for 14 days. acetaminophen (TYLENOL) 325 mg tablet Take 3 tablets by mouth four times daily. ondansetron (ZOFRAN) 4 mg tablet Take 1 tablet by mouth every 8 hours as needed for nausea/vomiting. No current facility-administered medications for this visit. ALLERGIES No Known Allergies REVIEW OF SYSTEMS: As noted in HPI. No current fevers or chills. PHYSICAL EXAMINATION: VIDEO EXAM: (if completed, performed via video enabled technology) Looks well. No distress. 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 PLAN: Change to penicillin VK 500mg every 6 hours- complete six months total of therapy from time of drain removal (stop=08/21) If not tolerating that then change to macrolide- erythromycin most tried and true, but if not available could consider clarithro or azithro. Azithromycin most likely to be tolerated of these. Also if not tolerating could consider just two month course with close follow up Advised patient to update me around 04/06 with how he is doing. I wrote just short course of the penicillin and would write remainder at that point. Follow up April or May. Could be video visit again Labs in two weeks to make sure no issues with kidney or liver issues There are no Patient Instructions on file for this visit. I spent a total of 43 minutes on the date of the service which included preparing to see the patient, [id number] patient care, completing clinical documentation, counseling and educating the patient/family/caregiver, and ordering medications, tests, or procedures Kevin Corona III, MD documented in this encounterSt. [facility] Hospital05-22-2024 NoteHNO ID: [id number] Author: KEVIN CORONA III, MD Service: ? Author Type: Physician Type: Progress Notes Filed: 03/18/2024 22:09 Note Text: VIRTUAL VISIT PROGRESS NOTE This is a virtual visit using P[employer] Video Visit. It required patient-provider interaction for the medical decision making as documented below. I have communicated my name and active licensure. The patient's identity and physical location were verified at the time of this visit. Either the patient or their legal risk control field representative has been informed of the risks and benefits of -- and alternatives to -- treatment through a remote evaluation and consents to proceed with the evaluation remotely. 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 He was on amoxicillin for only a week, but was having nausea and dyspepsia and heart burn so was changed to doxycycline. Doxycycline has not been treating him well. Has deep having quite a bit of diarrhea 4-5 per day. Worse in morning. Takes one at 8 and then 2nd one 7-8 p. To bed 9pm or 930. Recently has been taking with food which has not helped. Nauseated when waking up. Instantly going to bathroom within half hour and another within an hour. Every week goes by seems to be better overall in regards to energy level. He does note that his wound is still present and he is following up with his original surgeon because there is some tunneling at the site. He had questions re: possible probiotic use, why the duration of the six months. I told him since having GI issues at present that I would recommend to take a probiotic twice per day for now. Didn't give recommendation for any one particular probiotic. Said the reason for the long course is due to the nature of actinomyces. While he doesn't have a classic presentation of actinomyces such as lumpy jaw syndrome where recommendations for six months of therapy are more tried and true, I felt with the complicated clinical picture a longer course of therapy was in order. He asked how we know if six months is long enough or even if the antibiotics that were recently stopped were long enough. I reviewed results of the stop it trial with him regarding stopping the polymicrobial treatment with him supporting that rationale and said that typically with six month course we are in good shape with the actinomyces but to reassure him could consider a CT around that time. HISTORY REVIEWED (electronic chart updated): PAST MEDICAL HISTORY Diagnosis Date Diarrhea 12/18/05 Irritable bowel syndrome Irritable bowel PAST SURGICAL HISTORY Procedure Laterality Date PAST SURGICAL HISTORY OF left clavicle repair with plate,2004 PICC LINE INSERTION (PICC TEAM) ([place]) 02/03/2024 SIGMOIDOSCOPY FLX DX W/COLLJ SPEC BR/WA IF PFRMD 12/18/05 FAMILY HISTORY Problem Relation Age of Onset Diabetes Father Diabetes Maternal Grandfather Cancer Paternal Grandmother Stroke Paternal Grandfather Social History Tobacco Use Smoking status: Never Substance Use Topics Alcohol use: No Current Outpatient Medications Medication Sig doxycycline monohydrate 100 mg tablet Take 1 tablet by mouth two times a day for 14 days. acetaminophen (TYLENOL) 325 mg tablet Take 3 tablets by mouth four times daily. ondansetron (ZOFRAN) 4 mg tablet Take 1 tablet by mouth every 8 hours as needed for nausea/vomiting. No current facility-administered medications for this visit. ALLERGIES No Known Allergies REVIEW OF SYSTEMS: As noted in HPI. No current fevers or chills. PHYSICAL EXAMINATION: VIDEO EXAM: (if completed, performed via video enabled technology) Looks well. No distress. 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 PLAN: Change to penicillin VK 500mg every 6 hours- complete six months total of therapy from time of drain removal (stop=08/21) If not tolerating that then change to macrolide- erythromycin most tried and true, but if not available could consider clarithro or azithro. Azithromycin most likely to be tolerated of these. Also if not tolerating could consider just two month course with close follow up Advised patient to update me around 6/10 with how he is doing. I wrote just short course of the penicillin and would write remainder at that point. Follow up April or May. Could be video visit again Labs in two weeks to make sure no issues with kidney or liver issues There are no Patient Instructions on file for this visit. I spent a total of 43 minutes on (more content not included)...[facility]05-17-2024 Telephone encounter Note* Telephone Encounter - Kevin Corona III, MD - 03/13/2024 10:26 AM EDT I'm glad symptoms are improving. Yes, an amwell visit will be ok next week. Thanks. [facility]05-17-2024 Miscellaneous Notes* Telephone Encounter - Kevin Corona III, MD - 03/13/2024 10:26 AM EDT I'm glad symptoms are improving. Yes, an amwell visit will be ok next week. Thanks. * Telephone Encounter - Bernadette Reed RN - 03/13/2024 9:43 AM EDT Patient has been taking doxycycline for seven days, and reported having four episodes of loose semi-formed stools per day for five days. This morning, the stool was more formed, and patient stated that he is not having as much cramping and stomach discomfort. Patient instructed on s&s of C diff, and also instructed on taking a daily probiotic and the BRAT diet. Patient stated that he will trythese and will call the office if symptoms worsen. Patient also requested that his appointment next week be switched to an Amwell virtual visit. Please let me know if this is an issue. Thank you, Bernadette Reed RN documented in [facility] Telephone encounter Note * Telephone Encounter - Bernadette Reed RN - 03/13/2024 9:43 AM EDT Patient has been taking doxycycline for seven days, and reported having four episodes of loose semi-formed stools per day for five days. This morning, the stool was more formed, and patient stated that he is not having as much cramping and stomach discomfort. Patient instructed on s&s of C diff, and also instructed on taking a daily probiotic and the BRAT diet. Patient stated that he will trythese and will call the office if symptoms worsen. Patient also requested that his appointment next week be switched to an [facility] virtual visit. Please let me know if this is an issue. Thank you, Bernadette Reed RN [facility]05-10-2024 Telephone encounter Note* Telephone Encounter - Bernadette Reed RN - 03/06/2024 11:19 AM EDT Trudy and patient notified. Patient verbalized understanding and will call next week if the symptoms continue. Bernadette Reed RN [facility]05-10-2024 Miscellaneous Notes* Telephone Encounter - Bernadette Reed RN - 03/06/2024 11:19 AM EDT Trudy and patient notified. Patient verbalized understanding and will call next week if the symptoms continue. Bernadette Reed RN * Telephone Encounter - Kevin Corona III, MD - 03/06/2024 10:58 AM EDT With treating the actinomycosis and planning six months, I think best to change to another drug given that he's having such bad side effects. Next best drug for the bacteria is probably doxycycline. Issue will be that this can be problematicwith reflux although a lot of patients will tolerate it. Let's start as just two week rx. Have him let us know next week if he is tolerating and if he is then I will write for the full course. If he's not then maybe a cephalosporin or a macrolide? * Telephone Encounter - Bernadette Reed RN - 03/06/2024 10:29 AM EDT Telephone call from patient's home care nurseTrudy ([phone]). Patient c/o nausea and reflux since starting amoxicillin. He has been taking it with food, but this has not helped. Patient isrequesting a prescription for zofran or to switch to a different antibiotic if possible. Please advise. Bernadette Reed RN documented in this encounterSt[facility] Telephone encounter Note * Telephone Encounter - Kevin Corona III, MD - 03/06/2024 10:58 AM EDT With treating the actinomycosis and planning six months, I think best to change to another drug given that he's having such bad side effects. Next best drug for the bacteria is probably doxycycline. Issue will be that this can be problematicwith reflux although a lot of patients will tolerate it. Let's start as just two week rx. Have him let us know next week if he is tolerating and if he is then I will write for the full course. If he's not then maybe a cephalosporin or a macrolide? [facility]05-10-2024 Telephone encounter Note* Telephone Encounter - Bernadette Reed RN - 03/06/2024 10:29 AM EDT Telephone call from patient's home care nurse, Trudy ([phone]). Patient c/o nausea and reflux since starting amoxicillin. He has been taking it with food, but this has not helped. Patient isrequesting a prescription for zofran or to switch to a different antibiotic if possible. Please advise. Bernadette Reed RN [facility]05-01-2024 Telephone encounter Note* Telephone Encounter - Bernadette Reed RN - 02/26/2024 1:19 PM EDT External copat lab results entered. Bernadette Reed RN [facility]05-01-2024 Miscellaneous Notes* Telephone Encounter - Bernadette Reed RN - 02/26/2024 1:19 PM EDT External copat lab results entered. Bernadette Reed RN documented in this encounterSt. [facility]04-30-2024 History and physical note Author Amadeo Call [facility] February 25, 2024 5:16pm Note Date/Time February 25, 2024 4:5 1pm [facility] [address] [place] [id number] H&P Exam - Wound Care 02/25/24 1645 MR#: [id number] Acct: [id number] Name: TERRIE ALLEN Rep #:[id number] : 1980 43 From: Amadeo Sierra PCP: Care Physician,No Primary Status :REG RCR Location: History of Present Illness Date of Service: 02/25/24 Chief Complaint: Nonhealing surgical wound of the abdomen History of Wound: This is a 43-year-old male with a complicated recent medical history. On January 10, 2024, the patient presented with gastrointestinal bleeding and abdominal pain. A CT scan of the abdomen was performed, revealing intussusception of the ileocecal valve. On January 11, 2024, the patient underwent hand-assisted laparoscopic right hemicolectomy. 5 days postoperatively, the patient developed an incisional infection, and was treated with Augmentin 875 mg twice daily. He was discharged on January 16, 2024. 2 dayslater, he was readmitted with a diagnosis of postoperative intra-abdominal abscess, and was returned to surgery for exploratory laparotomy with washout anddrain placement. He continued to experience postoperative complications, and was subsequently transferred to [facility] on January 30, 2024. While at [facility], the patient underwent placement of a drain in the right lower quadrant by means of CT imaging. He was subsequently discharged home, and the drain has been removed. He remains on intravenous Zosyn by means ofa PICC catheter in his left upper extremity. The patient has a persisting open surgical wound in the midst of his midline surgical incision. He has been treated with a wound VAC, with home health nursing personnel who changed his wound VAC 3 times weekly. The patient is otherwise generally healthy, and denies significant medical history including hypertension, myocardial infarction, congestive heart failure, cerebrovascular accident, diabetes mellitus, renal disease, thyroid disease, hyperlipidemia, etc. [facility] Medical History (Updated 02/25/24 @ 17:[address] Amadeo Call MD) Anterior abdomen avulsion Collar bone fracture History of abdominal abscess Nonhealing surgical wound Home Medications acetaminophen 500 mg tablet 500 mg PO Q6H PRN PRN Pain 1-10 Or Fever #0 tabs 01/16/24 [Rx Last Taken Unknown] amoxicillin 875 mg-potassium clavulanate 125 mg tablet 1 tab PO BID atb 9 days #18 tabs 01/16/24 [Rx Last Taken Unknown] celecoxib 200 mg capsule 200 mg PO DAILY see md 7 days #7 caps 01/16/24 [Rx Last Taken Unknown] apixaban 5 mg (74 tabs) tablets in a dose pack (Eliquis DVT-PE Treat 30D Start) 5 mg PO Q12H blood clot 02/25/24 [History Last Taken Unknown] tramadol 50 mg tablet 50 mg PO Q8H PRN pain 02/25/24 [History Last Taken Unknown] Allergy/AdvReac Type Severity Reaction Status Date / Time No Known Allergies Allergy Verified 01/18/24 17:41 Surgical History H/O hernia repair History of open reduction and internal fixation (ORIF) procedure Status post right hemicolectomy Social History Smoking Status: Never smoker Vital Signs Vital Signs Vital Signs: 02/25/24 13:52 Temperature 97.2 F L Temperature Source Temporal Pulse Rate 77 Blood Pressure 127/82 H Blood Pressure Mean 97 Blood Pressure Source Monitor Blood Pressure Position Sitting Blood Pressure Location Right Arm Weight Weight: 195 lb Body Mass Index (BMI) 24.3 Physical Exam Const alert, oriented x3, no apparent distress, average body habitus and well nourished Constitutional Narrative: The patient is of relatively normal body habitus, with a BMI of 24.3. General Appearance: cooperative, comfortable, well kempt and well developed Orientation / Consciousness: awake, oriented to person, oriented to place and oriented to time Exam Limitations: no limitations HEENT normocephalic, head/scalp atraumatic and hearing grossly normal bilaterally Head and Scalp: normal to inspection, normocephalic and atraumatic External Ear: external ears normal Eyes PERRL and EOMs intact bilaterally General Eye: normal appearance of both eyes Neck full ROM Chest inspection of chest normal Resp normal respiratory effort, normal air movement, no retractions, no use of accessory muscles and clear to auscultation bilaterally Effort and Inspection: able to speak in complete sentences and symmetric chest movement Cardio regular rate, regular rhythm, S1 normal heart sound and S2 normal heart sound Extremity no calf tenderness General Extremity: Negative for clubbing or cyanosis Skin Wound Narrative: A vertical midline incision is noted, with a focal dehiscence near the midline. Dimensions are documented elsewhere. There is no sign of infection or cellulitis. A small amount of bioburden is noted. No drainage or odor are noted. Neuro oriented x3, CN's II-XII intact bilaterally, moves all extremities and no focal motor deficits Sensorium / Orientation: awake, alert, oriented to person, oriented to place andoriented to time Psych Appearance: grossly normal and appropriate Attitude: calm Activity / Motor Behavior: appropriate eye contact Speech: normal speech Mood & Affect: euthymic mood Thought Process: normal thought process Thought Content: normal thought content Attention / Concentration: attention grossly intact Debridement Note Debridement Note Wound debrided: Surgical abdominal wound Type of Debridement: Excisional debridement Anesthesia Used: 5% Lidocaine Gel Depth: Down to and including healthy tissue and in the subcutaneous layer Percentage of wound debrided: 100 Instrument Used: 3mm curette Severity: Fat Layer Exposed Amount of bleeding with debridement: Mild Bleeding Controlled with: Compression and gauze Patient tolerated procedure: Patient tolerated procedure well Post-Debridement Measurements and Additional Note: Post-Debridement Measurements/Treatment GINO - Nurse 1 - General Ulcer Assessment Start: 02/25/24 13:51 Freq: Status: Active Protocol: ALVARO Activity Type Activity Date Activity User E-sign Co-sign Detail Recorded Client Recorded Date Recorded By Document 02/25/24 13:52 DS Desktop 02/25/24 13:56 DS Edit Result 02/25/24 13:52 DS (1) Desktop 02/25/24 13:58 DS Edit Result 02/25/24 13:52 DS (2) [id number] 02/25/24 14:38 DS (1) Height => 6 ft 3 in Weight => 195 lb Weight in Pounds => 195.0 lbs Weight Measurement Method => Estimated by => Patient Body Mass Index (BMI) => 24.3 BMI Classification => Normal BSA - Chuck => 2.17 (2) Have you changed medications since your No => last visit? Any new allergies or adverse reactions No => Had a fall/change in ADL's that may No => increase risk of falls Signs or symptoms of abuse and/or No => neglect since last visit Have you been in the hospital since your No => last visit? Has dressing in place as prescribed Yes => Experienced any changes in pain level or No => management Preferred language => Beninese Able to Read => Yes Able to Write => Yes Caregiver Communication Skills => No Impairment Impairment Right Hearing Abillity => Normal Left Hearing Abillity => Normal Visual Assistive Devices => Glasses Preferences => Verbal,Written, => Demonstration Readiness To Learn => Excellent Willingness to Engage in Self Management => High Activies Readiness to Engage in Self Management => High Activities Anxiety Level => Anxious Cooperation => Cooperative Perception => Coherent Interest in Health Problem => Asks Questions Education Importance => Acknowledges Need Does Patient Smoke tobacco or other => No substances Is Patient Diabetic => No Recent Decline in Ability to Perform => Denies Any => Declines Cultural/Gnosticist Needs that may affect => No Treatment Plan *Welcome to the Wound Center - Person Taught => Patient - Teaching Method => Discussion - Response to teaching => Verbalize => understanding 02/25/24 13:52 - Today's Visit Information Type of service Initial Visit Arrival Mode Ambulatory Patient Identification Verified (Name & Yes ) Height and Weight Height 6 ft 3 in Weight 195 lb Weight in Pounds 195.0 lbs Weight Measurement Method Estimated by Patient Body Mass Index (BMI) 24.3 BMI Classification Normal BSA - Chuck 2.17 Vital Signs Temperature (97.8 F-99.1 F) 97.2 F L Temperature Source Temporal Pulse Rate (60-100) 77 Pulse Location Monitor Blood Pressure (90/60-120/80) 127/82 H Blood Pressure Mean 97 Source Monitor Position Sitting Blood Pressure Location Right Arm History Since Last Visit- (Skip if this is Patient's initial visit) Has compression in place as prescribed N/A Has offloadiing in place as prescribed N/A Left Footwear Regular Shoe Right Footwear Regular Shoe Pain Scale: 0-10 Numeric Is Patient Pain Free? Yes Communication Assessment Preferred language Beninese Able to Read Yes Able to Write Yes Caregiver Communication Skills No Impairment Impairment Right Hearing Abillity Normal Left Hearing Abillity Normal Visual Assistive Devices Glasses Teaching Assessment Preferences Verbal,Written, Demonstration Readiness To Learn Excellent Willingness to Engage in Self Management High Activies Readiness to Engage in Self Management High Activities Anxiety Level Anxious Cooperation Cooperative Perception Coherent Interest in Health Problem Asks Questions Education Importance Acknowledges Need Does Patient Smoke tobacco or other No substances Is Patient Diabetic No Functional Assessment Recent Decline in Ability to Perform Denies Any Declines Culture/Gnosticist/Manager Test Cultural/Gnosticist Needs that may affect No Treatment Plan Teaching: Wound Center *Welcome to the Wound Center -Person Taught Patient -Teaching Method Discussion -Response to teaching Verbalize understanding - Nurse 1 - General Ulcer Measurement Start: 02/25/24 13:51 Freq: Status: Active Protocol: Activity Type Activity Date Activity User E-sign Co-sign Detail Recorded Client Recorded Date Recorded By Document 02/25/24 14:04 DS Desktop 02/25/24 14:10 DS 02/25/24 14:04 Wound Center Nurse 1 #1 ant abd wall -Combined with other wound No -Current Size (cm) - Length 0.8 -Current Size (cm) - Width 0.6 -Current Size (cm) - Depth 1.2 -Total Square Cm 0.48 -Date of Last Picture (Recall this 04/30/24 field) -Photo Taken Yes -Tunneling Yes -Tunneling Position (O'clock) 1 -Tunneling Distance (cm) 1.4 -Undermining/Tunneling No -Circular Undermining No -Exudate Amt Medium -Exudate Type Serosanguineous -Granulation Amt Medium (34-66%) -Granulation Quality Red -Slough/Fibrin Yes -Necrosis Amt Medium (34-66%) -Necrotic Tissue Type Adherent Slough -Texture (Manisha-wound Skin Appearance) Assessed, Scarring -Moisture (Manisha-wound Skin Appearance) Assessed -Color (Manisha-wound Skin Appearance) Assessed, Erythema -Temperature (Manisha-wound Skin No Abnormality Appearance) (Pt Warm) -Tenderness on Palpation (Manisha-wound No Skin Appearance) -Ulcer Cleansing Soap and Water -Foul Odor after Cleansing No -Anesthetic Used 4% Lidocaine Solution WC - Nurse 2 - General Ulcer CM Notes Start: 02/25/24 13:51 Freq: Status: Active Protocol: Activity Type Activity Date Activity User E-sign Co-sign Detail Recorded Client Recorded Date Recorded By Document 02/25/24 14:29 Laptop 02/25/24 14:41 02/25/24 14:29 Wound Center Nurse 2 -Time 14:29 -Correct Patient Yes -Correct Side, Site, Position Yes -Correct Procedure Yes -Procedure Performed Yes -Type of Procedure Debridement -Clinical Debridement Subcutaneous -Tissue Removed Subcutaneous -Post Debridement (cm) - Length 1.0 -Post Debridement (cm) - Width 0.8 -Post Debridement (cm) - Depth 2.4 -Total Square (Post) (cm) 0.80 -Area of Debridement (cm) - Length 1.0 -Area of Debridement (cm) - Width 0.8 -Total Square (Area) (cm) 0.80 -Tunneling No -Undermining/Tunneling No -Circular Undermining No -Wound/Ulcer Outcome Not Healed -Ulcer Cleansing Rinsed/ Irrigated with Saline -Foul Odor after Cleansing No -Bioengineered Tissue No -Bleeding Controlled with Pressure -Treatment Response Procedure Tolerated Well -Offloading No -Debridement - Subq, 1st 20sq cm Yes Pain Scale: 0-10 Numeric Is Patient Pain Free? Yes GINO - Nurse 3 - General Ulcer D/C NN Start: 02/25/24 13:51 Freq: Status: Active Protocol: Activity Type Activity Date Activity User E-sign Co-sign Detail Recorded Client Recorded Date Recorded By Document 02/25/24 15:06 KW Desktop 02/25/24 15:11 KW 02/25/24 15:06 Wound Care Center Nurse 3 #1 ant abd wall -Ulcer Cleansing Soap and Water -Foul Odor after Cleansing No -Negative Pressure Wound Therapy Continue -Setting (mmHg) 150 -Negative Pressure is Continuous -Regranex (If Applicable) Continue -NPWT Application Charge NPWT & Debridement (nc ) Pain Scale: 0-10 Numeric Is Patient Pain Free? Yes WC - Visit Discharge Discharge Condition Stable Ambulatory Status Ambulatory Transportation Private Auto Medication Reconcilliation completed & No provided to patient/care provider Clinical Summary of Care Provided Yes Assessment/Plan Assessment/Plan (1) Nonhealing surgical wound: CODE(S): T81.89XA - Other complications of procedures, not elsewhere classified, initial encounter QUALIFIERS: Encounter type: initial encounter Qualified Code(s): T81.89XA - Other complications of procedures, not elsewhere classified, initial encounter (2) Anterior abdomen avulsion: CODE(S): S31.109A - Unspecified open wound of abdominal wall, unspecified quadrant without penetration into peritoneal cavity, initial encounter QUALIFIERS: Encounter type: initial encounter Qualified Code(s): S31.109A - Unspecified open wound of abdominal wall, unspecified quadrant without penetration into peritoneal cavity, initial encounter (3) Status post right hemicolectomy: CODE(S): Z90.49 - Acquired absence of other specified parts of digestive tract (4) S/P exploratory laparotomy: CODE(S): Z98.890 - Other specified postprocedural states (5) Infection following a procedure, deep incisional surgical site, initial encounter: CODE(S): T81.42XA - Infection following a procedure, deep incisional surgical site, initial encounter (6) BMI 26.0-26.9,adult: CODE(S): Z68.26 - Body mass index [BMI] 26.0-26.9, adult (7) History of abdominal abscess: CODE(S): Z87.898 - Personal history of other specified conditions (8) History of open reduction and internal fixation (ORIF) procedure: CODE(S): Z98.890 - Other specified postprocedural states PLAN: Plan This is a 43-year-old generally healthy male who underwent urgent surgical intervention on January 11, 2024. He was diagnosed with an intussusception of the ileocecal valve, and underwent a hand-assisted laparoscopic right hemicolectomy. Thereafter, the patient developed complications. He developed an infection of his surgical incision, following his discharge, he required readmission with an intra-abdominal abscess, which required exploratory laparotomy with washout and drain placement. He continued to suffer from postoperative complications, he was subsequently transferred to [facility], where he underwent percutaneous drain placement using CT imaging. He presented at this time in the course of his recovery, with an open wound within his surgical incision. The wound is generally healthy in appearance, though is totaled into the subcutaneous tissue layer. Recent management has been by means of negative pressure wound therapy. This is to be appropriate, and negative pressure wound therapy is to be continued. Until now, management of his wound VAC has been by home health nursing, who have made home visits 3 times weekly. We are to continue wound VAC changes 2-3 times weekly, one of which will be at his weekly Wound Healing Center visit. Patient is to return in 1 week for reassessment. Total time: 48 minutes 02/25/24 [id number] <Electronically signed by Amadeo Call MD> Cosigner Signature (if applicable): CC: ~ Signed [facility] Work Phone: [phone] 759-551904-30-2024 Telephone encounter Note* Telephone Encounter - Bernadette Reed RN - 02/25/2024 9:49 AM EDT Spoke with patient who stated that he finished voriconazole a week ago. Patient scheduled on 03/18. Please send the prescription for amoxicillin to [facility] in [place]. Verbal order to stop zosyn after final dose on 02-26 and to remove PICC relayed to Raji Kraus at [facility]. Voicemail left for Trudy patient's [facility] nurse as well. Bernadette Reed RN [facility]04-30-2024 Miscellaneous Notes* Telephone Encounter - Bernadette Reed RN - 02/25/2024 9:49 AM EDT Spoke with patient who stated that he finished voriconazole a week ago. Patient scheduled on 03/18. Please send the prescription for amoxicillin to [facility] in [place]. Verbal order to stop zosyn after final dose on 02-26 and to remove PICC relayed to Raji Kraus at [facility]. Voicemail left for Trudy, patient's [facility] nurse as well. Bernadette Reed RN * Telephone Encounter - Kevin Corona III, MD - 02/24/2024 3:40 PM EDT Since drain was able to be removed on 02/19 I think stop date of 02/26 is appropriate for both the zosyn as well as the voriconazole. Plan for continuing on amoxicillin for another 6 months. Will rx this as 1000mg TID. Yes,have him follow up with me week of 03/16. 2:30 on 03/18 or 1:30 on 03/20 if he is available. * Telephone Encounter - Bernadette Reed RN - 02/24/2024 12:58 PM EDT Telephone call from Trudy, patient's home care nurse, asking if stop date of 02-27-24 for zosyn will be honored and if PICC can be removed after the final dose. Patient would also like to know if he needs a follow up appointment with ID. He has an appointment with Dr. Christensen on 02-26-24 at 1315. Please advise. ADDI Diaz ([phone]) documented in [facility] encounterSt. [facility]04[facility] Telephone encounter Note * Telephone Encounter - Kevin Corona III, MD - 02/24/2024 3:40 PM EDT Since drain was able to be removed on 02/19 I think stop date of 02/26 is appropriate for both the zosyn as well as the voriconazole. Plan for continuing on amoxicillin for another 6 months. Will rx this as 1000mg TID. Yes,have him follow up with me week of 03/16. 2:30 on 03/18 or 1:30 on 03/20 if [address] is [address] [facility] Work Phone: [phone] 389-694704-29-2024 Telephone encounter Note* Telephone Encounter - Bernadette Reed RN - 02/24/2024 12:58 PM EDT Telephone call from Trudy, patient's home care nurse, asking if stop date of 02-27-24 for zosyn will be honored and if PICC can be removed after the final dose. Patient would also like to know if he needs a follow up appointment with ID. He has an appointment with Dr. Christensen on 02-26-24 at 1315. Please advise. ADDI Diaz ([phone]) [facility] Telephone encounter Note* Telephone Encounter - Jayson Johnson LPN - 02/21/2024 11:56 AM EDT Order faxed to Trudy. Alexx TINSLEY [facility]04-26-2024 Miscellaneous Notes* Telephone Encounter - Jayson Johnson LPN - 02/21/2024 11:56 AM EDT Order faxed to Trudy. Alexx TINSLEY * Telephone Encounter - Jayson Johnson LPN - 02/21/2024 10:54 AM EDT Home health nurse requesting order for [facility]. Fax order to [phone]. Alexx TINSLEY documented in this encounterSt. [facility] Hospital04-26-2024 Telephone encounter Note * Telephone Encounter - Jayson Johnson LPN - 02/21/2024 10:54 AM EDT Home health nurse requesting order for [facility]. Fax order to [phone]. Alexx TINSLEY [facility]04-22-[facility]24 Telephone encounter Note* Telephone Encounter - Jayson Johnson LPN - 02/17/2024 10:48 AM EDT Thank you for the message. I am happy to see him, but he does live far from here. Evaluation in clinic would provide part of the picture, but I anticipate he will need repeat blood work and CT imaging to rule in/or out additional intra-abdominal sequela. Would he like to have evaluation at a local Emergency Department then transfer here or evaluation at one of our Emergency Departments. We can easily do lab work here, but a CT of the abdomen/pelvis would only be obtained in the Emergency Department or inpatient setting. Thank you, MD Trudy Campoverde notified, will contact pt and family. Alexx TINSLEY [facility]04-22-2024 Miscellaneous Notes* Telephone Encounter - Jayson Johnson LPN - 02/17/2024 10:48 AM EDT Thank you for the message. I am happy to see him, but he does live far from here. Evaluation in clinic would provide part of the picture, but I anticipate he will need repeat blood work and CT imaging to rule in/or out additional intra-abdominal sequela. Would he like to have evaluation at a local Emergency Department then transfer here or evaluation at one of our Emergency Departments. We can easily do lab work here, but a CT of the abdomen/pelvis would only be obtained in the Emergency Department or inpatient setting. Thank you, MD Trudy Campoverde notified, will contact pt and family. Alexx TINSLEY * Telephone Encounter - Jayson Johnson LPN - 02/17/2024 9:06 AM EDT Abd abscess ,s/p R hemicolectomy, IR drain d/c on 02/07/24- Home care nurse states pt has been nauseated all weekend and has been taking zofran, occ cold sweat, denies fever or vomiting, normal BM's. Has abscessogram scheduled for Thurs and fu next week. Trudy called back states his wound bed has thick creamy drainage that is new. Alexx TINSLEY documented in this encounterSt. [facility] Hospital04-22-2024 Telephone encounter Note * Telephone Encounter - Jayson Johnson LPN - 02/17/2024 9:06 AM EDT Abd abscess ,s/p R hemicolectomy, IR drain d/c on 02/07/24- Home care nurse states pt has been nauseated all weekend and has been taking zofran, occ cold sweat, denies fever or vomiting, normal BM's. Has abscessogram scheduled for Thurs and fu next week. Trudy called back states his wound bed has thick creamy drainage that is new. Alexx TINSLEY [facility]04-18-[facility] Surgical operation note* Brief Op Note - Charles Orta MD, MD - 02/13/2024 7:42 AM EDT INTERVENTIONAL RADIOLOGY POST PROCEDURE NOTE DATE: 02/13/24 NAME: Terrie Allen LOG ID: [id number] Pre-Procedure Diagnosis: RLQ abscess with fistula Choir Singer: Surgeon(s) and Role: * Charles Orta MD, MD - Primary Procedure: Abscessogram Anesthesia: None Findings: Cavity decompressed. Small fistula to bowel Estimated Blood Loss: 0 ml Specimen: None Complications: None Plan: Stop flushing and repeat abscessogram in 1 week Post-Op/Post-Procedure Diagnosis: RLQ abscess with fistula documented in this encounterSt. Elizabeth Hospital04-18-2024 Miscellaneous Notes* Sedation Documentation - Elena Sandoval RN - 02/13/2024 7:40 AM EDT Pt asked not to flush drain anymore and return in a week for a repeat abscessogram by Dr Orta. Pt verbalized understanding. * Sedation Documentation - Elena Sandoval RN - 02/13/2024 7:32 AM EDT Drain output between 4-7mL/day, per pt. documented in this encounterSt. Elizabeth Hospital04-17-2024 Miscellaneous Notes* Telephone Encounter - Bernadette Reed RN - 02/12/2024 8:37 AM EDT External copat labs entered. Bernadette Reed RN documented in this encounterSt. Elizabeth Hospital04-12-2024 Miscellaneous Notes* Telephone Encounter - Wilner Kincaid LPN - 02/07/2024 3:27 PM EDT Thank you for the message. I will sign home care orders including for LUZ drain dressing changes. Thank you, Clyde Hennessy MD Called [facility] nurse back and notified of above message. They will fax orders for signature. Mayte TINSLEY * Telephone Encounter - Wilner Kincaid LPN - 02/07/2024 1:23 PM EDT [facility] called into the office wanting to know you are agreeable to signorders for [facility] for nursing home/wound care for this patient? If so, they need LUZ Drain dressing change orders too. Please advise. Mayte TINSLEY documented in this encounterSt. Elizabeth Hospital04-11-2024 NoteHNO ID: [id number] Author: JOSEFA ALTAMIRANO RN Service: Care Management Author Type: Registered Nurse Type: Care Mgt Progress Note Filed: 02/06/2024 16:33 Note Text: CARE MANAGEMENT DISCHARGE NOTE SERVICE DATE: February 06, 2024 SERVICE TIME: 4:29 PM Admission Date: 01/31/2024 LOS: 6 days Discharge Arrangement Discharge Arrangement: Home with Home Health Services Arranged Medical Services: Skilled Home Health Care, Other: See Comment (Home Infusion) Type: Fpc Provider Name: [facility] Provider Name: [facility] [employer] Caregiver Assessment Caregiver is ready, willing and able to meet the patient's needs as recommended by the inter-professional team: Yes Name of Caregiver: Allie Allen Transportation Arrangements Transportation Arrangements: Car Handoff Communication: Handoff to: Other Caregiver Other Caregiver Name/Phone: [facility] and [facility] are aware of DC, orders sent via [facility]Port Additional Information: Patient is discharging home with [facility] for and [facility] to provide IV abx and supplies. Patient will resume IV infusion tomorrow when [facility] visits. [facility] to deliver medication and supplies this evening. [facility] delivered wound vac to bedside yesterday. RN to private branch exchange service advisor to home going vac prior to DC. RN will also instruct patient and his on drain care prior to DC. Met with patient and his in room to review plans for DC. They are in agreement. Discharge Information Row Name Admission (Current) from 01/31/2024 in [place] SURG/INJURY/SAFETY HAZARD ASSESSMENT/ Home Health Care Agency [facility] Home [facility] Services Start of Care 02/07/24 Home Infusion Pharmacy Agency [facility] Phone/ Start of Care 02/06/24 delivery of medication and supplies SIGNATURE: Josefa Altamirano RN PATIENT NAME: Terrie Allen DATE: February 06, 2024 TIME: 4:26 PM CONTACT #: [phone]04-11-2024 Note HNO ID: [id number] Author: BOB PAPPAS CPhT Service: ? Author Type: [employer] Worker Type: Plan of Care Filed: 02/06/2024 16:21 Note Text: PHARMACY BEDSIDE DELIVERY SERVICE Patient Name: Terrie Allen The marked outpatient medications were Filled at: [facility] and delivered to the patient's bedside to patient. Medication List START taking these medications acetaminophen 325 mg tablet Commonly known as: TYLENOL Take 3 tablets by mouth four times daily. ELIQUIS DVT-PE TREAT 30D START 5 mg (74 tabs) Generic drug: apixaban Take 2 tablets (10 mg) by mouth twice daily for 7 days. Then take 1 tablet (5 mg) by mouth twice daily for 23 days ondansetron 4 mg tablet Commonly known as: ZOFRAN Take 1 tablet by mouth every 8 hours as needed for nausea/vomiting. traMADol 50 mg tablet Commonly known as: ULTRAM Take 1 tablet by mouth every 8 hours as needed for pain for up to 7 days. voriconazole 200 mg tablet Commonly known as: VFEND Take 1 tablet by mouth two times a day for 14 days. Bob Pappas CPhT PAGER: Bob Pappas ([facility]) [phone] February 06, 2024 4:20 [facility]04-11-2024 NoteHNO ID: [id number] Author: KEVIN CORONA III, MD Service: Infectious Disease Author Type: Physician Type: Plan of Care Filed: 02/06/2024 08:50 Note Text: Office staff let me know the voriconazole was denied when prior auth sent in so urgent appeal was sent, however if that is delayed the voriconazole is reasonably priced from [facility] pharmacy through [facility] so can change prescription to there if he would be ok with that. Will be up to see him in a bit.[facility]04-11-2024 Miscellaneous Notes* Telephone Encounter - Bernadette eRed RN - 02/06/2024 8:08 AM EDT -Prior authorization for voriconazole submitted to [facility] on 02/05/24 via cover My Meds. Authorization denied. -Urgent appeal faxed to [facility] at fax# [phone]. -Medication is available at [facility] pharmacy via [facility] for $46.14 if appeal is denied. Bernadette Reed RN documented in this encounterSt. Elizabeth Hospital04-10-2024 NoteHNO ID: [id number] Author: TONY FU APRN.STOCK CHECKERER Service: General Surgery Author Type: Nurse Specialist Type: Progress Notes Filed: 02/05/2024 12:20 Note Text: Emergency General Surgery Progress Note SERVICE DATE: February 05, 2024 Emergency General Surgery Service Pager: For questions or concerns Mon-Fri 6a-5p please page [phone]. After 5pm and on Weekends and Holidays, please page [phone] if in ICU or [phone] if on RNF. SUBJECTIVE: HPI: 43 year old male with history of IBS, intussusception 2/2 an inflammatory mass s/p R hemicolectomy c/b abscess requiring a washout now presenting as a direct admission for a second intraabdominal abscess formation. Patient initially presented at [facility] on 01/09 and was found to have an intussusception. He had emergency surgery, recovered well with return of bowel function was discharged on 01/15. He then was readmitted with abdominal pain, fevers, and chills on 01/17 and was noted to have an abscess and SSI. He then underwent a second operation for washout, local wound care to midline incision. Patient developed a Leukocytosis, repeat CTAP demonstrated a second abscess formation and decision made to transfer to [facility] for possible IR drainage. A wound vac was applied to midline and IR drain placed on 01/30. ID consulted for antibiotic recommendations No acute events overnight. Reports nausea this morning. States pain controlled, is hoping to go home today Tolerating diet DIET REGULAR Nausea Yes Emesis No Flatus Yes Bowel movement Yes Pain Controlled Yes Ambulating Yes OBJECTIVE: Vitals: Temp (24hrs), Av.6 ?C (97.8 ?F), Min:36.4 ?C (97.5 ?F), Max:36.7 ?C (98.1 ?F) BP 126/87 Pulse 72 Temp 36.5 ?C (97.7 ?F) (Oral) Resp 18 Ht 190.5 cm (6' 3") Wt 95.3 kg (210 lb 1.6 oz) SpO2 98% BMI 26.26 kg/m? O2 Therapy: Room Air IANDO: Date 02/04/24 07 - 02/05/24 0659 02/05/24 07 - 02/06/24 0659 Shift 7027-9945 4928-7641 6759-2495 24 Hour Total 9478-7032 3038-8788 2960-7084 24 Hour Total INTAKE Irrigants 5 5 Irrigant/Flush Amount In mL (I/O) (Drain/Tube 01/31/[address] [place] [address] Pigtail Right Anterior;Lower Quadrant Abdomen Drain #1) 5 5 Shift Total 5 5 OUTPUT Urine Urine Not Saved. 1 x 1 x Tubes 0 0 Drain/Tube Output (Drain/Tube 01/31/[address] [place] [address] Pigtail Right Anterior;Lower Quadrant Abdomen Drain #1) 0 0 Shift Total 0 0 Weight (kg) 95.3 95.3 95.3 95.3 95.3 95.3 95.3 95.3 MEDICATIONS Current Facility-Administered Medications Medication Dose Route Frequency apixaban 10 mg tab(s) (ELIQUIS) 10 mg ORAL BID voriconazole 200 mg in D5W 100 mL (VFEND) 200 mg INTRAVENOUS q 12 H senna-docusate 8.6-50 mg 1 tablet (SENNA-S) 1 tablet ORAL BID polyethylene glycol 3350 17 g packet 17 g ORAL DAILY lidocaine 4 % 1 Patch (SALONPAS) 1 Patch TRANSDERMAL DAILY And lidocaine patch - REMOVE OTHER AT BEDTIME And lidocaine - VERIFY PATCH OTHER q 8 H baclofen 10 mg tab(s) 10 mg ORAL BID simethicone, chewable 80 mg tab(s) (MYLICON) 80 mg ORAL QID PRN iv contrast (radiology procedure) INTRAVENOUS DIRECTED PRN iv contrast (radiology procedure) INTRAVENOUS DIRECTED PRN HYDROmorphone (PF) 0.5 mg injection (DILAUDID) 0.5 mg INTRAVENOUS q 4 H PRN acetaminophen 975 mg tab(s) (TYLENOL) 975 mg ORAL QID NaCl 0.9% iv flush bag 20 mL INTRAVENOUS PRN ondansetron 4 mg tab(s) (ZOFRAN) 4 mg ORAL q 6 H PRN Or ondansetron (PF) 4 mg injection (ZOFRAN) 4 mg INTRAVENOUS q 6 H PRN piperacillin-tazobactam iv piggyback 3.375 g in dextrose (iso-osmotic) 50 mL (ZOSYN) 3.375 g INTRAVENOUS q 6 H sodium chloride 0.9 % (flush) 5 mL (BD POSIFLUSH) 5 mL OTHER DAILY traMADol 50-100 mg tab(s) (ULTRAM) 50-100 mg ORAL q 6 H PRN Labs: Recent Labs 02/05/24 0524 02/04/24 0452 NA 140 138 K 3.7 3.6* CHLOR 102 100 CO2 28 29 BUN 11 14 CREAT 1.32* 1.27* GLUC 85 92 ANION 10 9 CA 9.5 9.2 WBC 6.04 7.21 HB 11.2* 10.9* HCT 35.4* 34.5* PLT 461* 465* Physical Exam: GENERAL: No distress, Alert NEURO: AANDOx3, CN II-XII grossly intact HEENT: normocephalic, atraumatic LUNGS: Unlabored breathing, equal chest rise bilaterally CARDIAC: Regular rate, warm and well perfused distal extremities ABDOMEN: Soft, non-tender, non-distended. Wound vac intact over midline incision. 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 Moderate protein-calorie malnutrition (HCC) 01/31/2024 Open abdominal wall wound, initia (more content not included)...[facility]04-09-2024 NoteHNO ID: [id number] Author: BARRERA SOARES RPh Service: Pharmacy Author Type: Pharmacist Type: Plan of Care Filed: 02/04/2024 18:12 Note Text: PHARMACY MEDICATION REVIEW Patient Name: Terrie Allen : 1980 The following medications were updated within the PAINTING INSTRUCTOR medication list: Medications ADDED to PAINTING INSTRUCTOR medication list N/a Medications CHANGED on PAINTING INSTRUCTOR medication list N/a Medications REMOVED from PAINTING INSTRUCTOR medication list N/a Additional comments: N/A The below information represents the best possible medication history: Yes Medication history completed by: Pharmacist: Barrera Soares RPh Source of history: Patient- does not take any medications PAINTING INSTRUCTOR Medication nonadherence identified: No barriers noted Reconciliation completed: Yes Completed by: JACQUI All PAINTING INSTRUCTOR medications addressed by JACQUI Patient interested in Bedside Delivery Services or using OP Pharmacy at discharge? Unable to assess Preferred outpatient pharmacy: [facility] [place] [id number] - [address] [place] [address] Allergies: No Known Allergies None Barrera Soares RPh 02/04/2024[facility]04-09-2024 NoteHNO ID: [id number] Author: JOSEFA ALTAMIRANO, ADDI Service: Care Management Author Type: Registered Nurse Type: Care Mgt Progress Note Filed: 02/04/2024 13:44 Note Text: CARE MANAGEMENT PROGRESS NOTE SERVICE DATE: 02/04/2024 SERVICE TIME: 1:13 PM LOS: 4 days Needs Prior to Discharge: Insurance Authorization;Equipment Delivery Chart reviewed. Plan for IV Zosyn through 02/26. Plan for Eliquis at [place] [facility] and [facility] Care are following for HHC and IV abx infusion. Script for wound vac faxed to Daphney at [facility]. Anticipate DC home tomorrow pending wound vac approval and delivery. Met with patient and his at bedside to provide update. SIGNATURE: Josefa Altamirano RN PATIENT NAME: Terrie Allen DATE: February 04, 2024 TIME: 1:13 PM PAGER/CONTACT #: [phone] 02-04-2024 NoteHNO ID: [id number] Author: KEVIN CORONA III, MD Service: ? Author Type: Physician Type: Plan of Care Filed: 02/04/2024 14:04 Note Text: 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 cervesiae) IV Antibiotics Piperacillin-Tazobactam 3.375 grams IV every 6 hours STOP DATE: 02/27/2024 Oral Antibiotics Voriconazole 200 mg PO every 12 hours STOP DATE: 02/18/2024 Lab Monitoring Plan/Orders CBC/diff every Saturday/Saturday while on Piperacillin-tazobactam Voriconazole BMP every Saturday/Saturday while on Piperacillin-tazobactam Voriconazole Liver Function Tests every Saturday/Saturday while on Piperacillin-tazobactam Voriconazole Pharmacy Consult Yes Cath Care Protocol Flush IV line with 10 mL of normal saline (0.9%) before and after each dose of medication or at a minimum once daily. Flush IV line with 10-20 mL of normal saline (0.9%) after lab draw. ok for 24h eclipse Provider Monitoring Treatment Course Kevin Corona III, MD Follow up Provider Follow up date/time Appointment type Kevin Corona III, MD In-person Address [address] [place], [place] [address]Prescribing Provider's signature - electronically signed by Kevin Corona III, MD on 04/09/24 at 2:04 [facility]04-09-2024 NoteHNO ID: [id number] Author: MELISSA BLACKMAN APRN.BEAUTY SHOP MANAGER, DNP Service: General Surgery Author Type: Nurse Practitioner Type: Progress Notes Filed: 02/04/2024 10:18 Note Text: Documentation Query Based on your medical judgment of the clinical indicators outlined below, please clarify the condition: (Please type X next to your response and sign) Clinical Indicators:per RD note 4/5 Recommended Malnutrition Diagnosis: Moderate Protein-Calorie Malnutrition In the context of: Chronic Illness or Injury Based on: Insufficient Energy Intake, Unintentional Weight Loss" Problem: Suboptimal protein/energy intake Related to: Altered GI function As evidenced by: Weight loss, Patient/family self-report, Medical condition, Procedure/surgery" Care Plan: Continue regular diet.Please document and encourage intakes at mealtimes. Continue current diet 2.Added Supplements: [employer] 1.0 (has not tolerated milk based protein supplements well in the past)" Body mass index is 25.63 kg/m?. Weight change percentage over time: loss of 5% over <1 month" 4/5 PN Active hospital problems "Moderate protein-calorie malnutrition (HCC) 01/31/2024" Documentation in the medical record indicates the patient has Moderate Protein Calorie Malnutrition. Based on your medical judgment can you please further clarify the diagnosis. X Moderate Protein Calorie Malnutrition is a current diagnosis AND clinically significant for this admission based on the above assessment, plan, and treatment Other, please specify [facility] 02-04-2024 Miscellaneous Notes* Plan of Care - Kevin Corona III, MD - 02/04/2024 11:27 AM EDT Images from the original note were not included. 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 cervesiae) IV Antibiotics Piperacillin-Tazobactam 3.375 grams IV every 6 hours STOP DATE: 02/27/2024 Oral Antibiotics Voriconazole 200 mg PO every 12 hours STOP DATE: 02/18/2024 Lab Monitoring Plan/Orders CBC/diff every Saturday/Saturday while on Piperacillin-tazobactam Voriconazole BMP every Saturday/Saturday while on Piperacillin-tazobactam Voriconazole Liver Function Tests every Saturday/Saturday while on Piperacillin-tazobactam Voriconazole Pharmacy Consult Yes Cath Care Protocol Flush IV line with 10 mL of normal saline (0.9%) before and after each dose of medication or at a minimum once daily. Flush IV line with 10-20 mL of normal saline (0.9%) after lab draw. ok for 24h eclipse Provider Monitoring Treatment Course Kevin Corona III, MD Follow up Provider Follow up date/time Appointment type Kevni Corona III, MD In-person Address [address] [place], [place] [address]Prescribing Provider's signature - electronically signed by Kevin Corona III, MD on 02/04/24 at 2:04 PM documented in this encounterSt. Elizabeth Hospital04-09-2024 NoteHNO ID: [id number] Author: MELISSA BLACKMAN APRN.BEAUTY SHOP MANAGER, DNP Service: General Surgery Author Type: Nurse Practitioner Type: Progress Notes Filed: 02/04/2024 15:27 Note Text: Emergency General Surgery Progress Note SERVICE DATE: February 04, 2024 Emergency General Surgery Service Pager: For questions or concerns Mon-Sat 6a-5p please page [phone]. After 5pm and on Weekends and Holidays, please page [phone] if in ICU or [phone] if on RNF. SUBJECTIVE: Hospital day 5 : Left lower chest discomfort, unchanged from previous and midline abdominal pain at lower incision +flatus and bowel movement Tolerating a diet Drain with minimal output, 10cc/24 hours Denies nausea or vomiting OBJECTIVE: Vitals: Temp (24hrs), Av.6 ?C (97.9 ?F), Min:36.4 ?C (97.5 ?F), Max:36.7 ?C (98.1 ?F) BP 114/71 Pulse 65 Temp 36.4 ?C (97.5 ?F) (Oral) Resp 16 Ht 190.5 cm (6' 3") Wt 95.3 kg (210 lb 1.6 oz) SpO2 96% BMI 26.26 kg/m? O2 Therapy: Room Air IANDO: Date 02/03/241499 - 02/04/2465802/04/24 07 - 02/05/24 0659 Shift 8023-2645 0818-6382 24 Hour Total 8416-7772 2095-0451 0869-7427 24 Hour Total INTAKE PO 360 PO 360 Irrigants 5 5 5 Irrigant/Flush Amount In mL (I/O) (Drain/Tube 01/31/24 0953 [facility] Pigtail Right Anterior;Lower Quadrant Abdomen Drain #1) 5 5 5 Shift Total 365 5 5 OUTPUT Urine 700 700 Void (ml) 700 700 Urine Not Saved. 1 x Tubes 5 10 Drain/Tube Output (Drain/Tube 01/31/24 0953 [facility] Pigtail Right Anterior;Lower Quadrant Abdomen Drain #1) 5 10 Shift Total 5 700 710 Weight (kg) 96.9 95.3 95.3 95.3 95.3 95.3 95.3 MEDICATIONS Current Facility-Administered Medications Medication Dose Route Frequency voriconazole 400 mg in D5W 100 mL (VFEND) 400 mg INTRAVENOUS q 12 H senna-docusate 8.6-50 mg 1 tablet (SENNA-S) 1 tablet ORAL BID polyethylene glycol 3350 17 g packet 17 g ORAL DAILY lidocaine 4 % 1 Patch (SALONPAS) 1 Patch TRANSDERMAL DAILY And lidocaine patch - REMOVE OTHER AT BEDTIME And lidocaine - VERIFY PATCH OTHER q 8 H baclofen 10 mg tab(s) 10 mg ORAL BID simethicone, chewable 80 mg tab(s) (MYLICON) 80 mg ORAL QID PRN iv contrast (radiology procedure) INTRAVENOUS DIRECTED PRN iv contrast (radiology procedure) INTRAVENOUS DIRECTED PRN HYDROmorphone (PF) 0.5 mg injection (DILAUDID) 0.5 mg INTRAVENOUS q 4 H PRN acetaminophen 975 mg tab(s) (TYLENOL) 975 mg ORAL QID NaCl 0.9% iv flush bag 20 mL INTRAVENOUS PRN ondansetron 4 mg tab(s) (ZOFRAN) 4 mg ORAL q 6 H PRN Or ondansetron (PF) 4 mg injection (ZOFRAN) 4 mg INTRAVENOUS q 6 H PRN piperacillin-tazobactam iv piggyback 3.375 g in dextrose (iso-osmotic) 50 mL (ZOSYN) 3.375 g INTRAVENOUS q 6 H sodium chloride 0.9 % (flush) 5 mL (BD POSIFLUSH) 5 mL OTHER DAILY traMADol 50-100 mg tab(s) (ULTRAM) 50-100 mg ORAL q 6 H PRN Labs: Recent Labs 02/04/24 0452 02/03/24 0426 NA 138 137 K 3.6* 3.9 CHLOR 100 101 CO2 29 27 BUN 14 15 CREAT 1.27* 1.37* GLUC 92 84 ANION 9 9 CA 9.2 9.5 WBC 7.21 8.75 HB 10.9* 11.3* HCT 34.5* 35.6* PLT 465* 474* Physical Exam: GENERAL: sitting in bed with HOB elevated, alert NEURO: AANDOx3, CN II-XII grossly intact HEENT: normocephalic, atraumatic LUNGS: Respirations even and unlabored no room air CARDIAC: Regular rate, warm and well perfused distal extremities ABDOMEN: Soft, tender near midline incision, non-distended, midline incision with wound vac in place. 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 Now s/p IR drain placement Hospital Course/Operations/Procedures: 01/31/2024 Procedure(s): CT GUIDED PERCUTANEOUS DRAINAGE OF ABSCESS W/ INSERTION CATHETER ABDOMINAL Plan: - Regular diet - Pain control- scheduled tylenol, PRN oxy and dilaudid - Trend leukocytosis- resolved - follow drain Cx - ID following: continue zosyn - anticipate 4 weeks IV therapy and 6 months PO - PICC line t (more content not included)...[facility] 02-03-2024 NoteHNO ID: [id number] Author: JOSEFA ALTAMIRANO RN Service: Care Management Author Type: Registered Nurse Type: Care Mgt Progress Note Filed: 02/03/2024 14:03 Note Text: CARE MANAGEMENT PROGRESS NOTE SERVICE DATE: 02/03/2024 SERVICE TIME: 1:45 PM LOS: 3 days Post-Acute Discharge Planning Patient Goal(s): Be able to go home, General wellness, Heal wounds [place] of Choice Explained: [place] of Choice Given: Yes Level of Care Discussed: Home Care Discharge Planning Participant(s): Patient;Spouse/significant other Patient/Family Comments: spouse at bedside Anticipated # of Days Until Discharge: 2 Transport at Discharge: Transportation Arrangements: Car Needs Prior to Discharge: Needs Prior to Discharge: Discharge Prescriptions, Home Care Order, Equipment Delivery, Insurance Authorization, IV Antibiotics, Wound Care Post-Acute Discharge Plan: Chart reviewed. IR drain in place. Per ID, plan for 4 weeks IV abx. Wound care placed a wound vac at bedside today. Met with patient and his in room to discuss plans for home wound vac and IV abx. Patient's is teachable caregiver and able to assist with IV infusion and wound care if needed. HHC referrals sent and [facility] is able to accept. They can provide next day AM SOC pending discharge date. Per Lita, patient's surgeon at [facility] was previously agreeable to following for [facility] since patient doesn't have a PCP. Will send referral to [facility] for home IV abx and supplies. Patient will need home wound vac set up through [facility]. Script placed on patient's chart for signature. SIGNATURE: Josefa Altamirano RN PATIENT NAME: Terrie Allen DATE: February 03, 2024 TIME: 1:45 PM PAGER/CONTACT #: [phone] History of Past illness Narrative* Problem Noted Date Diagnosed Date Resolved Date Leukocytosis 02/03/2024 02/06/2024 Chest wall pain 02/01/2024 02/06/2024 ROXANNA (acute kidney injury) 02/01/2024 Pleurisy 02/01/2024 02/06/2024 Mesenteric vein thrombosis 01/31/2024 0 02/06/2024 documented as of this encounter (statuses as of 02/06/2024) [facility]04-08-2024 History of Past illness Narrative* Problem Noted Date Diagnosed Date Resolved Date Leukocytosis 02/03/2024 02/06/2024 Chest wall pain 02/01/2024 02/06/2024 ROXANNA (acute kidney injury) 02/01/2024 Pleurisy 02/01/2024 02/06/2024 Mesenteric vein thrombosis 01/31/2024 0 02/06/2024 documented as of this encounter (statuses as of 02/07/2024) [facility]04-08-2024 History of Past illness Narrative* Problem Noted Date Diagnosed Date Resolved Date Leukocytosis 02/03/2024 02/06/2024 Chest wall pain 02/01/2024 02/06/2024 ROXANNA (acute kidney injury) 02/01/2024 Pleurisy 02/01/2024 02/06/2024 Mesenteric vein thrombosis 01/31/2024 0 02/06/2024 documented as of this encounter (statuses as of 02/12/2024) [facility]04-08-2024 History of Past illness Narrative* Problem Noted Date Diagnosed Date Resolved Date Leukocytosis 02/03/2024 02/06/2024 Chest wall pain 02/01/2024 02/06/2024 ROXANNA (acute kidney injury) 02/01/2024 Pleurisy 02/01/2024 02/06/2024 Mesenteric vein thrombosis 01/31/2024 0 02/06/2024 documented as of this encounter (statuses as of 02/14/2024) [facility]04-08-2024 NoteHNO ID: [id number] Author: WILNER BASSETT RN Service: PICC Team Author Type: Registered Nurse Type: Procedures Filed: 02/03/2024 09:26 Note Text: PICC NURSE INSERTION NOTE DATE OF PROCEDURE: February 03, 2024 TIME OF PROCEDURE: 0900 ORDERING PHYSICIAN: Cristian INFORMED CONSENT: Obtained per hospital policy. INDICATION FOR LINE PLACEMENT: IV access CONDITION OF LINE PLACEMENT: Sterile PRIMARY PROCEDURALIST: Dianne Bhagat RN ADULT CROSSING GUARD: Wilner Bassett RN PRE-PROCEDURE REVIEW ALLERGIES No Known Allergies Known History of Upper Venous Thrombosis: No Known History of Permanent Pacemaker or Automated Implanted Cardiac Device: No Previous Breast Surgery of Lymph Node Dissection: No Estimated Glomerular Filtration Rate Date Value Ref Range Status 02/03/2024 66 >=60 mL/min/1.73m? Final Comment: Estimated Glomerular Filtration Rate (eGFR) is calculated using the 2020 CKD-EPI creatinine equation. This equation utilizes serum creatinine, sex, and age as parameters. The creatinine assay has traceable calibration to isotope dilution-mass spectrometry. Refer to KDIGO guidelines for clinical interpretation. In patients with unstable renal function, e.g. those with acute kidney injury, the eGFR may not accurately reflect actual GFR. History of Renal Disease: No Ultrasound Assessment Complete: Yes PROCEDURE NARRATIVE SAFE PRACTICE Hand Hygiene per Hospital Policy: Yes Skin Preparation Unit Dose Applicator Used: Chloraprep (CHG + alcohol), allowed to dry. Procedure Surface Cleansed with Antimicrobial Wipes: Yes Barriers Used by Proceduralist and all Assisting Personnel: Yes UNIVERSAL PROTOCOL / SAFETY CHECKLIST Procedure to be Performed: peripherally inserted central catheter Sign In: A Moment of CARE was completed. Personnel directly involved with the procedure wore the appropriate PPE (Personal Protective Equipment). Special equipment: sherlock Patient/Surrogate Stated/Verified: PATIENT VERIFIED(optional for EMERGENT procedures): Patient name, Date of , Relevant allergies, and The intended procedure Time Out Communication: Intended patient and procedure match the source documents. Consent documented and matches the intended procedure. Relevant labs, photos, and/or imaging studies have been reviewed. Correct side/site marked and visible. Medications required for procedure verified. Fire risk assessed and interventions discussed. No implant(s) inserted. Sign Out: SIGN OUT (optional for EMERGENT procedures): No specimen collected. All instruments, equipment, possible retained foreign bodies accounted for. Post-procedure follow-up management communicated and Plan of Care Visit completed when applicable. Wilner Bassett RN CATHETER PLACEMENT Brand: bard Lot: [id number] Number of Lumens: 1 Type of PICC: Power Injectable PICC Lumen Size: 4 Taiwanese PLACEMENT TECHNIQUE Lidocaine: Yes, Lidocaine 1% Volume 1 mL Subcutaneous Modified Seldinger Technique Used to Place Line via the Left Basilic Ultrasound Guidance: Yes Number of Attempts at Insertion: 1 Ensured control of guidewire during all aspects of the procedure: Yes Accounted for entire guidewire upon removal: Yes Internal Length: 50 cm External Length: 1 cm Trim Length: 51 cm Mid-Arm Circumference: 32 centimeters Post Insertion Pain Level Related to Procedure: 0 Action Taken to Address Pain: None needed Verified Placement: Blood return and flushes with ease and Tip location system or device indicates the tip is located in the SVC/CAJ. Line was Flushed with 20 mL normal saline Line Secured with: Securement device Sterile Dressing Applied and Dated: Yes Sterile Caps on all Ports Prior to Leaving Procedure Area: Yes, Disinfection caps applied SPECIMENS: None COMPLICATIONS: None Patient Education Materials: Given to patient QUESTIONS or PROBLEMS: Call [phone] SIGNATURE: Wilner Bassett RN PATIENT NAME: Terrie Allen DATE: February 03, 2024 TIME: 9:18 AM PAGER/CONTACT PHONE:[facility]04-08-2024 NoteHNO ID: [id number] Author: MELISSA BLACKMAN APRN.BEAUTY SHOP MANAGER, DNP Service: General Surgery Author Type: Nurse Practitioner Type: Progress Notes Filed: 02/03/2024 15:02 Note Text: Emergency General Surgery Progress Note SERVICE DATE: February 03, 2024 Emergency General Surgery Service Pager: For questions or concerns Mon-Fri 6a-5p please page [phone]. After 5pm and on Weekends and Holidays, please page [phone] if in ICU or [phone] if on RNF. SUBJECTIVE: Hospital day 4 : Midline abdominal pain at lower incision +flatus and bowel movement Tolerating a diet Denies nausea or vomiting OBJECTIVE: Vitals: Temp (24hrs), Av.6 ?C (97.8 ?F), Min:36.3 ?C (97.3 ?F), Max:36.7 ?C (98.1 ?F) BP 124/68 Pulse 74 Temp 36.6 ?C (97.9 ?F) (Oral) Resp 18 Ht 190.5 cm (6' 3") Wt 96.9 kg (213 lb 10 oz) SpO2 95% BMI 26.70 kg/m? O2 Therapy: Room Air IANDO: Date 02/02/24 07 - 02/03/24 0659 02/03/24 07 - 02/04/24 0659 Shift 3179-9786 4821-2569 5707-6717 24 Hour Total 0725-5220 2543-1039 5233-5553 24 Hour Total INTAKE PO 240 240 480 PO 240 240 480 IV 50 50 100 Volume (mL) (piperacillin-tazobactam iv piggyback 3.375 g in dextrose (iso-osmotic) 50 mL (ZOSYN)) 50 50 100 Shift Total 290 290 580 OUTPUT Urine 350 350 Void (ml) 350 350 Urine Not Saved. 1 x 1 x # of BMs Number of BMs 1 x 1 x Shift Total 350 350 Weight (kg) 93 96.9 96.9 96.9 96.9 96.9 96.9 96.9 MEDICATIONS Current Facility-Administered Medications Medication Dose Route Frequency senna-docusate 8.6-50 mg 1 tablet (SENNA-S) 1 tablet ORAL BID polyethylene glycol 3350 17 g packet 17 g ORAL DAILY lidocaine 4 % 1 Patch (SALONPAS) 1 Patch TRANSDERMAL DAILY And lidocaine patch - REMOVE OTHER AT BEDTIME And lidocaine - VERIFY PATCH OTHER q 8 H baclofen 10 mg tab(s) 10 mg ORAL BID simethicone, chewable 80 mg tab(s) (MYLICON) 80 mg ORAL QID PRN iv contrast (radiology procedure) INTRAVENOUS DIRECTED PRN iv contrast (radiology procedure) INTRAVENOUS DIRECTED PRN HYDROmorphone (PF) 0.5 mg injection (DILAUDID) 0.5 mg INTRAVENOUS q 4 H PRN acetaminophen 975 mg tab(s) (TYLENOL) 975 mg ORAL QID NaCl 0.9% iv flush bag 20 mL INTRAVENOUS PRN ondansetron 4 mg tab(s) (ZOFRAN) 4 mg ORAL q 6 H PRN Or ondansetron (PF) 4 mg injection (ZOFRAN) 4 mg INTRAVENOUS q 6 H PRN piperacillin-tazobactam iv piggyback 3.375 g in dextrose (iso-osmotic) 50 mL (ZOSYN) 3.375 g INTRAVENOUS q 6 H sodium chloride 0.9 % (flush) 5 mL (BD POSIFLUSH) 5 mL OTHER DAILY traMADol 50-100 mg tab(s) (ULTRAM) 50-100 mg ORAL q 6 H PRN enoxaparin 90 mg injection (LOVENOX) 1 mg/kg/dose SUBCUTANEOUS q 12 HR lidocaine 10 mg/mL (1 %) 10-100 mg injection (XYLOCAINE) 1-10 mL INTRADERMAL DIRECTED PRN Labs: Recent Labs 02/03/24 0426 02/02/24 0337 02/01/24 0923 02/01/24 0631 NA 137 138 -- -- K 3.9 4.5 -- -- CHLOR 101 99 -- -- CO2 27 26 -- -- BUN 15 15 -- -- CREAT 1.37* 1.35* -- -- GLUC 84 95 -- -- ANION 9 13 -- -- CA 9.5 10.0 -- -- MG -- -- 2.1 -- P -- -- 3.8 -- WBC 8.75 13.22* -- -- HB 11.3* 12.1* -- -- HCT 35.6* 38.5* -- -- PLT 474* 574* -- -- LACT -- -- -- 1.4 Physical Exam: GENERAL: sitting in bed with HOB elevated, alert NEURO: AANDOx3, CN II-XII grossly intact HEENT: normocephalic, atraumatic LUNGS: Respirations even and unlabored no room air CARDIAC: Regular rate, warm and well perfused distal extremities ABDOMEN: Soft, tender near midline incision, non-distended, midline incision with packing at distal end-drainage, dsg intact and ABD in place EXTREMITIES: ESCALANTE, No deformities, No edema SKIN: Skin color, texture, turgor normal, No rashes or lesions ASSESSMENT AND PLAN: Assessment Active Hospital Problems Diagnosis Date Noted Intraabdominal fluid collection 01/31/2024 Chest wall pain 02/01/2024 ROXANNA (acute kidney injury) (HCC) 02/01/2024 Pleurisy 02/01/2024 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 Now s/p IR drain placement Hospital Course/Operations/Procedures: 01/31/2024 Procedure(s): CT GUIDED PERCUTANEOUS DRAINAGE OF ABSCESS W/ INSERTION CATHETER ABDOMINAL Plan: - Regular diet - Pain control- scheduled tylenol, PRN oxy and dilaudid - Trend leukocytosis: 8.8<-13.2 <- 13.2 <- 13.1 - follow drain Cx - ID following: continue zosyn - anticipate 4 weeks IV therapy and 6 months PO - PICC line today - Wound care consulted: midline surgical incision - dressing changes BID - will (more content not included)...[facility]04-07-2024 Note HNO ID: [id number] Author: EMRE MEIER APRN.CNP Service: General Surgery Author Type: Nurse Practitioner Type: Progress Notes Filed: 02/02/2024 10:01 Note Text: Emergency General Surgery Progress Note SERVICE DATE: February 02, 2024 Emergency General Surgery Service Pager: For questions or concerns Mon-Fri 6a-5p please page [phone]. After 5pm and on Weekends and Holidays, please page [phone] if in ICU or [phone] if on RNF. SUBJECTIVE: Hospital day 3 : Mr. Allen continues to report left sided chest wall pain however states improved. Difficult to take a deep breath. States he is trying to work on the IS but finds it difficult due to pain. Some nausea overnight but now + flatus, no BM. Denies feeling feverish or chills. Tolerating diet DIET REGULAR OBJECTIVE: Vitals: Temp (24hrs), Av.8 ?C (98.3 ?F), Min:36.4 ?C (97.6 ?F), Max:37.1 ?C (98.8 ?F) BP 114/73 Pulse 83 Temp 36.4 ?C (97.6 ?F) (Oral) Resp 16 Ht 190.5 cm (6' 3") Wt 93 kg (205 lb 0.4 oz) SpO2 92% BMI 25.63 kg/m? O2 Therapy: Room Air IANDO: Date 02/01/24699 - 02/02/24 0659 02/02/24 07 - 02/03/24 0659 Shift 0987-6954 3269-2730 8911-7405 24 Hour Total 1521-4950 0508-1182 3410-1889 24 Hour Total INTAKE IV 50 50 100 Volume (mL) (piperacillin-tazobactam iv piggyback 3.375 g in dextrose (iso-osmotic) 50 mL (ZOSYN)) 50 50 100 Irrigants 5 5 Irrigant/Flush Amount In mL (I/O) (Drain/Tube 01/31/24 0953 [facility] Pigtail Right Anterior;Lower Quadrant Abdomen Drain #1) 5 5 Shift Total 55 50 105 OUTPUT Urine Urine Not Saved. 1 x 1 x Tubes 5 5 Drain/Tube Output (Drain/Tube 01/31/24 0953 [facility] Pigtail Right Anterior;Lower Quadrant Abdomen Drain #1) 5 5 Shift Total 5 5 Weight (kg) 93 93 93 93 93 93 93 93 MEDICATIONS Current Facility-Administered Medications Medication Dose Route Frequency lidocaine 4 % 1 Patch (SALONPAS) 1 Patch TRANSDERMAL DAILY And lidocaine patch - REMOVE OTHER AT BEDTIME And lidocaine - VERIFY PATCH OTHER q 8 H baclofen 10 mg tab(s) 10 mg ORAL BID simethicone, chewable 80 mg tab(s) (MYLICON) 80 mg ORAL QID PRN iv contrast (radiology procedure) INTRAVENOUS DIRECTED PRN iv contrast (radiology procedure) INTRAVENOUS DIRECTED PRN And enteric contrast (radiology procedure) ORAL DIRECTED PRN HYDROmorphone (PF) 0.5 mg injection (DILAUDID) 0.5 mg INTRAVENOUS q 4 H PRN acetaminophen 975 mg tab(s) (TYLENOL) 975 mg ORAL QID NaCl 0.9% iv flush bag 20 mL INTRAVENOUS PRN ondansetron 4 mg tab(s) (ZOFRAN) 4 mg ORAL q 6 H PRN Or ondansetron (PF) 4 mg injection (ZOFRAN) 4 mg INTRAVENOUS q 6 H PRN piperacillin-tazobactam iv piggyback 3.375 g in dextrose (iso-osmotic) 50 mL (ZOSYN) 3.375 g INTRAVENOUS q 6 H sodium chloride 0.9 % (flush) 5 mL (BD POSIFLUSH) 5 mL OTHER DAILY traMADol 50-100 mg tab(s) (ULTRAM) 50-100 mg ORAL q 6 H PRN enoxaparin 90 mg injection (LOVENOX) 1 mg/kg/dose SUBCUTANEOUS q 12 HR lidocaine 10 mg/mL (1 %) 10-100 mg injection (XYLOCAINE) 1-10 mL INTRADERMAL DIRECTED PRN Labs: Recent Labs 02/02/24 0337 02/01/24 0923 02/01/24 0631 02/01/24 0016 01/31/24 0439 NA 138 -- -- 134* 138 K 4.5 -- -- 4.0 4.1 CHLOR 99 -- -- 98 103 CO2 26 -- -- 27 25 BUN 15 -- -- 18 16 CREAT 1.35* -- -- 1.45* 1.36* GLUC 95 -- -- 100* 103* ANION 13 -- -- 9 10 CA 10.0 -- -- 9.4 9.6 MG -- 2.1 -- -- -- P -- 3.8 -- -- -- WBC 13.22* -- -- 13.29* 13.07* HB 12.1* -- -- 12.3* 11.9* HCT 38.5* -- -- 38.6* 36.6* PLT 574* -- -- 577* 601* LACT -- -- 1.4 -- -- INR -- -- -- -- 1.1 Physical Exam: GENERAL: sitting in bed with HOB elevated, alert NEURO: AANDOx3, CN II-XII grossly intact HEENT: normocephalic, atraumatic LUNGS: Respirations even and unlabored no room air CARDIAC: Regular rate, warm and well perfused distal extremities ABDOMEN: Soft, tender near midline incision, non-distended, midline incision with packing at distal end-drainage, dsg intact and ABD in place. 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 Now s/p IR drain placement (more content not included)...[facility] 02-01-2024 NoteHNO ID: [id number] Author: EMRE MEIER APRN.CNP Service: General Surgery Author Type: Nurse Practitioner Type: Progress Notes Filed: 02/01/2024 14:15 Note Text: Emergency General Surgery Progress Note SERVICE DATE: February 01, 2024 Emergency General Surgery Service Pager: For questions or concerns Mon-Fri 6a-5p please page [phone]. After 5pm and on Weekends and Holidays, please page [phone] if in ICU or [phone] if on RNF. 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 Continued to have Left sided chest wall discomfort on initial exam this early am. Reports pain is mostly on inspiration and felt within chest wall area. Feeling SOB due to unable to take a deep breath. Tolerating diet DIET REGULAR OBJECTIVE: Vitals: Temp (24hrs), Av.6 ?C (97.8 ?F), Min:36.4 ?C (97.5 ?F), Max:36.6 ?C (97.9 ?F) BP 135/82 Pulse 93 Temp 36.5 ?C (97.7 ?F) (Oral) Resp 16 Ht 190.5 cm (6' 3") Wt 93 kg (205 lb 0.4 oz) SpO2 98% BMI 25.63 kg/m? O2 Therapy: Nasal Cannula IANDO: Date 01/31/24699 - 02/01/2465802/01/24699 - 02/02/24 0659 Shift 3979-6835 0841-6795 1592-8021 24 Hour Total 3486-3049 7968-2466 2451-3775 24 Hour Total INTAKE PO 360 120 480 PO 360 120 480 IV 1700 50 1750 Volume (mL) (piperacillin-tazobactam iv piggyback 3.375 g in dextrose (iso-osmotic) 50 mL (ZOSYN)) 100 50 150 Volume (mL) (lactated ringers iv infusion) 1600 1600 Irrigants 5 5 Irrigant/Flush Amount In mL (I/O) (Drain/Tube 01/31/[address] [place] [address] Pigtail Right Anterior;Lower Quadrant Abdomen Drain #1) 5 5 Shift Total 2060 170 2230 5 5 OUTPUT Urine 500 500 Void (ml) 500 500 Urine Not Saved. 3 x 1 x 4 x Tubes 0 0 Drain/Tube Output (Drain/Tube 01/31/[address] [place] [address] Pigtail Right Anterior;Lower Quadrant Abdomen Drain #1) 0 0 Shift Total 0 500 500 Weight (kg) 93 93 93 93 93 93 93 93 MEDICATIONS Current Facility-Administered Medications Medication Dose Route Frequency lidocaine 4 % 1 Patch (SALONPAS) 1 Patch TRANSDERMAL DAILY And lidocaine - VERIFY PATCH OTHER q 8 H baclofen 10 mg tab(s) 10 mg ORAL BID morphine 4 mg injection 4 mg INTRAVENOUS q 6 H PRN simethicone, chewable 80 mg tab(s) (MYLICON) 80 mg ORAL QID PRN acetaminophen 975 mg tab(s) (TYLENOL) 975 mg ORAL QID NaCl 0.9% iv flush bag 20 mL INTRAVENOUS PRN ondansetron 4 mg tab(s) (ZOFRAN) 4 mg ORAL q 6 H PRN Or ondansetron (PF) 4 mg injection (ZOFRAN) 4 mg INTRAVENOUS q 6 H PRN piperacillin-tazobactam iv piggyback 3.375 g in dextrose (iso-osmotic) 50 mL (ZOSYN) 3.375 g INTRAVENOUS q 6 H sodium chloride 0.9 % (flush) 5 mL (BD POSIFLUSH) 5 mL OTHER DAILY traMADol 50-100 mg tab(s) (ULTRAM) 50-100 mg ORAL q 6 H PRN enoxaparin 90 mg injection (LOVENOX) 1 mg/kg/dose SUBCUTANEOUS q 12 HR lidocaine 10 mg/mL (1 %) 10-100 mg injection (XYLOCAINE) 1-10 mL INTRADERMAL DIRECTED PRN Labs: Recent Labs 02/01/24 0923 02/01/24 0631 02/01/24 0016 01/31/24 0439 NA -- -- 134* 138 K -- -- 4.0 4.1 CHLOR -- -- 98 103 CO2 -- -- 27 25 BUN -- -- 18 16 CREAT -- -- 1.45* 1.36* GLUC -- -- 100* 103* ANION -- -- 9 10 CA -- -- 9.4 9.6 MG 2.1 -- -- -- P 3.8 -- -- -- WBC -- -- 13.29* 13.07* HB -- -- 12.3* 11.9* HCT -- -- 38.6* 36.6* PLT -- -- 577* 601* LACT -- 1.4 -- -- INR -- -- -- 1.1 Physical Exam: GENERAL: sitting with HOB elevated, alert NEURO: AANDOx3, CN II-XII grossly intact HEENT: normocephalic, atraumatic LUNGS: slight tachypnea, respiration even, using O2 per NC CARDIAC: Regular rate, warm and well perfused distal extremities ABDOMEN: Soft, tender near midline incision, non-distended, midline incision with packing at distal end-drainage, dsg intact and ABD in place. 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 Now s/p IR drain placement Hospital Course/Operations/Procedures: 01/31/2024 Procedure(s): CT GUIDED PERCUTANEOUS DRAINAGE OF ABSCESS W/ INSERTION CATHETER ABDOMINAL Plan: - diet as tolerated - Pain control prn - Trend leukocytosis: 13.2 <- 13.1 - follow drain Cx - ID following: continue zosyn - anticipate 4 weeks IV therapy and 6 months PO - w (more content not included)...[facility]04-06-2024 NoteHNO ID: [id number] Author: CARLOTA AGUILERA APRN.BEAUTY SHOP MANAGER Service: Critical Care Author Type: Nurse Practitioner Type: Progress Notes Filed: 02/01/2024 08:08 Note Text: EMERGENCY RESPONSE TEAM Rapid Response Date of MET Page: February 01, 2024 Time of MET Page: [phone] Requesting Provider: Bedside nurse SUMMARY DIAGNOSIS, ASSESSMENT and RECOMMENDATIONS HPI: 43 yo male admitted 01/30 as a transfer from [facility]. He initially was admitted to [facility] 01/09 for intussusception requiring an exploratory laparotomy. He was discharged home 01/15 and readmitted a few days later with an abscess. He was taken back to the OR for washout. He then developed leukocytosis and was found to have a second abscess on CT scan, and was transferred to [facility] for further care. 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 IR drain was placed 01/30. OBSTETRICS TECH SUBJECTIVE: Per bedside nurse, OBSTETRICS TECH was called due to increasing chest wall pain. Patient was reportedly having increased pain over the hour prior to OBSTETRICS TECH being called. He maintained stable vital signs and good oxygen saturation throughout. OBSTETRICS TECH OBJECTIVE: On my arrival, patient was sitting up in bed awake and alert. He was slightly tachypneic and taking short breaths. He was satting 98% on 2L and normotensive. He was slightly tachycardic, ranging 95-110. CXR from 5am reviewed, with bilateral atelectasis and left sided pleural effusion. Patient describes sharp pain in left ribs, more mediastinal, worse with inspiration, cough and movement. Reproducible with palpation as well. He denies feeling short of breath,or having difficulty taking deep breaths, states he is breathing fast because of pain. Denies abdominal pain, nausea. Surgery team also at bedside. ASSESSMENT/PLAN: ##Chest wall pain -possible costochondritis vs. pleuracy given reproducible in nature and sharp stabbing pain worse with palpation and inspiration. -VBG, EKG WNL, no need for ICU involvement at this time -troponin slightly elevated, will need trended -dilaudid given x1, ibuprofen x1 with some relief -low utility of CTPE given patient is already on therapeutic anticoagulation. Can consider non-con CT to further evaluate effusion, although likely not large enough to require drainage Status: Stable PLAN, DISPOSITION and OUTCOME Responded to therapy, remains on current unit under care of: General surgery PRIMARY REASON FOR CALL Unresolved Pain Issue PAST MEDICAL / SURGICAL HISTORY PAST MEDICAL HISTORY Diagnosis Date Diarrhea 12/18/05 Irritable bowel syndrome Irritable bowel , PAST SURGICAL HISTORY Procedure Laterality Date PAST SURGICAL HISTORY OF left clavicle repair with plate,2004 SIGMOIDOSCOPY FLX DX W/COLLJ SPEC BR/WA IF PFRMD 12/18/05 MEDICATIONS Current Facility-Administered Medications Medication Dose Route Frequency lidocaine 4 % 1 Patch (SALONPAS) 1 Patch TRANSDERMAL DAILY baclofen 10 mg tab(s) 10 mg ORAL BID HYDROmorphone (PF) 0.4 mg injection (DILAUDID) 0.4 mg INTRAVENOUS ONCE acetaminophen 975 mg tab(s) (TYLENOL) 975 mg ORAL QID morphine 2 mg injection 2 mg INTRAVENOUS q 6 H PRN NaCl 0.9% iv flush bag 20 mL INTRAVENOUS PRN ondansetron 4 mg tab(s) (ZOFRAN) 4 mg ORAL q 6 H PRN Or ondansetron (PF) 4 mg injection (ZOFRAN) 4 mg INTRAVENOUS q 6 H PRN piperacillin-tazobactam iv piggyback 3.375 g in dextrose (iso-osmotic) 50 mL (ZOSYN) 3.375 g INTRAVENOUS q 6 H sodium chloride 0.9 % (flush) 5 mL (BD POSIFLUSH) 5 mL OTHER DAILY traMADol 50-100 mg tab(s) (ULTRAM) 50-100 mg ORAL q 6 H PRN enoxaparin 90 mg injection (LOVENOX) 1 mg/kg/dose SUBCUTANEOUS q 12 HR lidocaine 10 mg/mL (1 %) 10-100 mg injection (XYLOCAINE) 1-10 mL INTRADERMAL DIRECTED PRN ALLERGIES ALLERGIES No Known Allergies PERTINENT PHYSICAL EXAM and INITIAL ASSESSMENT (For vital signs prior and during MET call, see nursing documentation) Pertinent Vital Signs at Time of MET Call: see nursing flowsheet Appearance: Alert and Mild distress Airway Examination: Neck Movement FROM (full range of motion) Airway Patent: Yes Breathing Evaluation: tachypneic, nonlabored Breathing Adequate: Yes Circulation Evaluation: Skin warm and Pulses Full, bounding Circulation Adequate: Yes Neurologic Evaluation: Alert Is the Level of Consciousness at Baseline: Yes Additional Physical Exam Findings: Head/Eyes: PERRLA Skin: warm and dry Lungs: clear, non-labored Abdomen: soft, round, and non-tender Extremities: normal exam of the extremities and no edema PERTINENT DIAGNOSTICS Labs (Reviewed and include): Lactate Recent Labs 02/01/24 0631 LACT 1.4 BMP Recent Labs 02/01/24 0016 GLUC 100* K 4.0 NA 134* CHLOR 98 CO2 27 CREAT 1.45* BUN 18 ANION 9 CA 9.4 CBC Recent Labs 02/01/24 0016 HB 12.3* HCT 38.6* RBC 4.32 WBC 13.29* PLT 577* EKG: NSR Imaging: CXR reviewed INTERVENTIONS See additional documentation: Above In (more content not included)...[facility]04-05-2024 NoteHNO ID: [id number] Author: EMRE MEIER APRN.BEAUTY SHOP MANAGER Service: General Surgery Author Type: Nurse Practitioner Type: Progress Notes Filed: 01/31/2024 18:37 Note Text: Emergency General Surgery Progress Note SERVICE DATE: January 31, 2024 Emergency General Surgery Service Pager: For questions or concerns Mon-Fri 6a-5p please page [phone]. After 5pm and on Weekends and Holidays, please page [phone] if in ICU or [phone] if on RNF. SUBJECTIVE: Mr. Allen reports abdominal discomfort at midline incision. Denies nausea, vomiting. + flatus and BMs. Tolerating diet DIET REGULAR OBJECTIVE: Vitals: Temp (24hrs), Av.6 ?C (97.8 ?F), Min:36.3 ?C (97.4 ?F), Max:36.6 ?C (97.9 ?F) BP 105/67 Pulse 68 Temp 36.6 ?C (97.9 ?F) (Oral) Resp 18 Ht 190.5 cm (6' 3") Wt 93 kg (205 lb 0.4 oz) SpO2 97% BMI 25.63 kg/m? O2 Therapy: Room Air IANDO: Date 01/30/24 1500 - 01/31/24 0659(Not Admitted) 01/31/24 0700 - 02/01/24 0659 Shift 2394-0476 2706-4796 24 Hour Total 6915-2765 5893-6000 3584-0691 24 Hour Total INTAKE PO 360 360 PO 360 360 IV 1700 1700 Volume (mL) (piperacillin-tazobactam iv piggyback 3.375 g in dextrose (iso-osmotic) 50 mL (ZOSYN)) 100 100 Volume (mL) (lactated ringers iv infusion) 1600 1600 Shift Total 20590 OUTPUT Urine Urine Not Saved. 3 x 3 x Shift Total Weight (kg) 93 93 93 93 93 93 MEDICATIONS Current Facility-Administered Medications Medication Dose Route Frequency acetaminophen 975 mg tab(s) (TYLENOL) 975 mg ORAL QID morphine 2 mg injection 2 mg INTRAVENOUS q 6 H PRN NaCl 0.9% iv flush bag 20 mL INTRAVENOUS PRN ondansetron 4 mg tab(s) (ZOFRAN) 4 mg ORAL q 6 H PRN Or ondansetron (PF) 4 mg injection (ZOFRAN) 4 mg INTRAVENOUS q 6 H PRN piperacillin-tazobactam iv piggyback 3.375 g in dextrose (iso-osmotic) 50 mL (ZOSYN) 3.375 g INTRAVENOUS q 6 H sodium chloride 0.9 % (flush) 5 mL (BD POSIFLUSH) 5 mL OTHER DAILY traMADol 50-100 mg tab(s) (ULTRAM) 50-100 mg ORAL q 6 H PRN enoxaparin 90 mg injection (LOVENOX) 1 mg/kg/dose SUBCUTANEOUS q 12 HR lidocaine 10 mg/mL (1 %) 10-100 mg injection (XYLOCAINE) 1-10 mL INTRADERMAL DIRECTED PRN Labs: Recent Labs 01/31/24 0439 NA 138 K 4.1 CHLOR 103 CO2 25 BUN 16 CREAT 1.36* GLUC 103* ANION 10 CA 9.6 WBC 13.07* HB 11.9* HCT 36.6* PLT 601* INR 1.1 Physical Exam: GENERAL: No distress, Alert NEURO: AANDOx3, CN II-XII grossly intact HEENT: normocephalic, atraumatic LUNGS: Unlabored breathing, equal chest rise bilaterally CARDIAC: Regular rate, warm and well perfused distal extremities ABDOMEN: Soft, tender near midline incision, non-distended, midline incision with packing at distal end-drainage with odor, drainage on packing warren-brown, wound bed with sloughy white bed. 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 Now s/p IR drain placement Hospital Course/Operations/Procedures: 01/31/2024 Procedure(s): CT GUIDED PERCUTANEOUS DRAINAGE OF ABSCESS W/ INSERTION CATHETER ABDOMINAL Plan: - diet as tolerated - Pain control prn - Trend leukocytosis: 13.1 - follow drain Cx - ID following: continue zosyn - anticipate 4 weeks IV therapy and 6 months PO - will need PICC placement - Wound care consulted: midline surgical incision - dressing changes BID - will reassess on Saturday for wound vac SMV thrombosis - seen on December CT from [facility] - Lovenox BID (weight based) Follow up needs: PICC, HHC for IV antibiotics, mcfp anticoagulation (3 month) Assessment, plan and patient seen at bedside with attending: Dr. Foster SIGNATURE: Emre Meier APRN.CNP PATIENT NAME: Terrie Allen DATE: January 31, 2024 TIME: 1820 Pager: [phone] Emergency General Surgery Service Pager: For questions or concerns Mon-Fri 6a-5p please page [phone]. After 5pm and on Weekends and Holidays, please page [phone] if in ICU or [phone] if on RNF.[facility]04-05-2024 NoteHNO ID: [id number] Author: MILY MAURICIO LSW Service: Care Management Author Type: Fiberglass Dowel Drawing Operator Type: Care Mgt Initial Assessment Filed: 01/31/2024 15:23 Note Text: CARE MANAGEMENT: ASSESSMENT AND DISCHARGE PLAN SERVICE DATE: January 31, 2024 SERVICE TIME: 3:20 PM PCP: No primary care provider on file. Primary Contact: Extended Emergency Contact Information Primary Emergency Contact: allie allen Mobile Relation: Spouse Secondary Emergency Contact: Sherry Allen [place] Relation: Mother Admission Status: Inpatient Insurance Provider: [employer]O [employer]EMS OOS Discharge Planning requested by: Per Department Practice Potential Transition Plans Home;To Be Determined Advance Directives Current Advance Directive: Health Care Power of Other Sports Coach Or Instructor;Living Will In Chart: No Current Living Arrangements and Support Lives with: Spouse/significant other Type of Residence: Private Residence (House) Support: Family members, Spouse/significant other How do you manage to accomplish the following: Independent: Ambulation;Bathe/Shower;Dress;Meals/Meal Prep;Going to the bathroom;Medication Management;Transportation to appointments/community Current Services/Equipment Current Post-Acute Service(s): None Discharge Planning Patient Goal(s): Be able to go home, General wellness [place] of Choice Explained: [place] of Choice Given: No Reason Not Given: Unable to complete with this assessment - revisit Are you interested in bedside delivery of your medications? Yes Discharge Planning Participant(s): Patient Patient/Family Comments: Caregiver Assessment: Caregiver is ready, willing and able to meet the patient's needs as recommended by the inter-professional team: Yes Name of Caregiver: Allie- Transport at Discharge: Transportation Arrangements: Car Needs Prior to Discharge: Needs Prior to Discharge: To Be Determined Post-Acute Discharge Plan: SW met with pt and his at bedside. Pt from home with . 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 Pt is on his 's health insurance, SW made a copy of insurance card and sent it to admitting. Discharge plan TBD. Pt does not have a PCP, SW encouraged pt to call [facility] to get a list of PCP's who are in network. +Rx at [facility]. to transport pt home. SIGNATURE: PAVEL Feliz PATIENT NAME: Terrie Allen DATE: January 31, 2024 TIME: 3:20 PM CONTACT #: [phone] Discharge summary Author Ricco García [facility] January 30, 2024 8:28pm Note Date/Time January 30, 2024 5:28 pm [facility] Medical Records Department [address] [place] [id number] Discharge Summary 01/30/24 1724 MR#: [id number] Acct: [id number] Name: TERRIE ALLEN Rep #:[id number] : 1980 43 From: Ricco Sierra PCP: Care Physician,No Primary Status :ADM IN [facility] Prov[facility] Date of Admission: 01/18/24 Primary Care Physician: No Primary Care Phys Consultations 01/19/24 03:54 Oncology [Consult: Onc/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/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 goods 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 Once again, there is no skin drainage from patient's wound and less necrotic debris within the wound base. Patient was transition to Augmentin plus ciprofloxacin per IDs recommendations yesterday, and while he remains afebrile his white count did increase today. With this increase a CT of the abdomen pelvis was ordered with oral and IV contrast. Previous reactive thrombocytosis appears further improved today. Mr. Allen does have evidence of acute kidney injury and malnutrition. Labs show a continued downtrend in his creatinine, but a fluid bolus was given prior to his IV contrast with his CT imaging as ordered above. Given his perioperative malnutrition we are continuing to encourage protein intake. Continue dressing changes 3 times daily with dry gauze. Continue to encourage ambulation. Ricco García MD General Surgery Endocrine Surgery Pager: [facility] [address] [place] [address], [facility], [address] [place] [address] Office: [phone] Medications at Discharge Home Medications acetaminophen 500 mg tablet 500 mg PO Q6H PRN PRN Pain 1-10 Or Fever #0 tabs 01/16/24 amoxicillin 875 mg-potassium clavulanate 125 mg tablet 1 tab PO BID atb 9 days #18 tabs 01/16/24 celecoxib 200 mg capsule 200 mg PO DAILY see 7 days #7 caps 01/16/24 oxycodone 5 mg tablet 5 mg PO Q6H PRN PRN Pain Score 4-10 2 days #6 tabs 01/16/24 levofloxacin 750 mg tablet 750 mg PO DAILY atb #14 tabs 01/17/24 Hospital Course Operations - (Exploratory laparotomy with washout and drain placement 01/18/2024) Procedures PICC line placement ("Midline" placement 01/28/2024) Summary of Care Provided Hospital Course: Patient is a 43-year-old male who required emergent exploratory laparotomy with washout and drain placement 01/18/2024 after presentation to the ER with new fevers and drainage following a colectomy on 01/11/2024. Upon arrival to the ER he underwent CT imaging which showed evidence of a retroperitoneal abscess deep to the colon and just below the ileocolic anastomosis. Upon exploration, there was no evidence of a anastomotic leak, but the peritoneum was washed out and a drain was placed in the paracolic gutter. Abscess cultures were obtained from that operation and the patient was placed on broad-spectrum therapy with Zosyn and vancomycin per pharmacy's recommendations. Patient's wound had been left open at the time of surgery (closed at fascia only) given a preoperatively diagnosed polymicrobial wound infection. 3 days postoperatively, after multipledressing changes of patient's abdominal with no drainage, his skin was loosely reapproximated with a delayed primary closure using 2-0 nylon suture. Unfortunately, postoperative day 6 patient was noted to have some new drainage of his wound and the inferior portion of the wound was opened and cultured. Ultimately this grew pansensitive Enterococcus faecalis. During this same time patient's diet was advanced according to his tolerance and we encourage protein intake given his [id number] operations. He tolerated this advancement rather uneventfully. However, he did develop evidence of acute kidney injury and this seemed to correspond with elevated vancomycin troughs. Thus, infectious diseasewas consulted to see if patient truly required vancomycin in addition to Zosyn. They determined that Zosyn monotherapy would be sufficient and the vancomycin was promptly discontinued. Given patient's ROXANNA efforts were also made to try toimprove patient's free water and limit any other nephrotoxic agents. On the morning of postoperative day 11, patient had tolerated a transitional diet for anumber of days with regular bowel function and had 2 days of normal white blood cell counts. Thus, the drain that had been placed at the time of surgery was removed. Additionally with these clinical improvements discharge planning was set into motion for potential discharge the following day with home health. However, the morning of postoperative day 12 patient had an increase in his white blood cell count that was followed up with a CT of the abdomen and pelvis using oral and IV contrast. This imaging showed evidence of a 4 cm x 3 cm abscess in the vicinity of the patient's anastomosis. Reoperation was contemplated, however, given the difficulty of the previous operation and patient's longer recovery this decision was reassessed alongside of patient's CTimaging. It was felt that Mr. Allen did, in fact, have a potential window thatmight be exploited by interventional radiology for placement of a percutaneous drain. Given the strong interest from both the patient's and the provider side to avoid reoperation tertiary assistance was sought and patient was excepted in transfer with the surgery service at [facility]. Physical Exam Const alert and oriented x3 Constitutional Narrative: Mild distress from recent news of abscess Resp normal respiratory effort GI GI Narrative: Nondistended, soft, scant serous drainage to wound gauze, nontender to palpation, clean dressing over patient's prior drain site in right lower quadrant Weight / BMI Weight Weight: 221 lb 5.506 oz Body Mass Index (BMI) 27.6 ABG / Lab / Microbiology Data 01/30/24 06:38 01/30/24 06:38 Laboratory: Laboratory Results - last 24 hr 01/30/24 06:38: WBC 11.2 H, RBC 4.32 L, Hgb 11.7 L, Hct 37.3 L, MCV 86.3, MCH 27.1, MCHC 31.4 L, RDW Std Deviation 41.9, RDW Coeff of Khadijah 13.3, Plt Count 659 H, MPV 9.6, Immature Gran % (Auto) 1.000 H, Neut % (Auto) 68.5, Lymph % (Auto) 13.7 L, Butts % (Auto) 11.4 H, Eos % (Auto) 4.2, Baso % (Auto) 1.2 H, Absolute Neuts (auto) 7.7, Absolute Lymphs (auto) 1.54, Nucleated RBC % 0, Sodium 138, Potassium 4.1, Chloride 107, Carbon Dioxide 25.0, Anion Gap 6, BUN 16, Creatinine 1.37 H, Estim Creat Clear Calc 83.10, Est GFR (MDRD) Af Amer 73, Est GFR (MDRD) Non-Af 60, BUN/Creatinine Ratio 11.7, Glucose 91, Calcium 9.4, Phosphorus 3.5, Magnesium 2.2 Microbiology: Microbiology 01/24/24 12:35 Wound - Abdominal Gram Stain - Final 01/24/24 12:35 Wound - Abdominal Wound Culture - Final Enterococcus faecalis 01/24/24 12:35 Wound - Abdominal Anaerobic Culture - Final Bacteroides thetaiotaomicron 01/19/24 00:01 Aspirate - Abdominal Gram Stain - Final 01/19/24 00:01 Aspirate - Abdominal Wound Culture - Final Enterococcus faecalis Streptococcus group G Escherichia coli Pseudomonas aeruginosa 01/19/24 00:01 Aspirate - Abdominal Anaerobic Culture - Final Parabacteroides distasonis Bacteroides ovatus Bacteroides fragilis 01/18/24 18:41 Blood Culture (Wb) - Anticubital Left Blood Culture - Final No growth in 5 days. 01/18/24 19:00 Blood Culture (Wb) - Anticubital Right Blood Culture - Final No growth in 5 days. 01/18/24 20:49 Urine, Clean Catch Urine Culture - Final Culture exhibits no growth. Radiography Diagnostic Testing: Radiology Impression Abdomen/Pelvis CT 01/30/24 10:57 IMPRESSION: Status post right hemicolectomy with postoperative changes. There is a 3.8 side by 3 cm walled off fluid collection in the mesenteric fat at the operative site. Previously, this was more of a phlegmon. No evidence of bowel obstruction. Sigmoid diverticulosis. Electronically Signed: Charlie Melo MD at 14:16 EDT , Meaningful Use Info Meaningful Use Diagnoses (Choose all that apply): None applicable Discharge Plan Admission Admit Date/Time: 01/18/24 20:47 Primary Reason for Your Visit: Abscess, intra-abdominal, postoperative Attending Provider: Ricco García Primary Care Provider: Care Physician,Rocío Primary Consulting Providers: Veronica Garner; Emily Aquino Instructions Additional Instructions / Restrictions: Continue Gentle dry to dry dressing changes three times daily You will have home health assisting with You will be sent home on Augmentin and Ciprofloxacin We would also like you to continue a blood thinner and will be transitioning youfrom Heparin to Lovenox once a day for at least 21 days We will discuss at your follow-up, if a hematology referral is needed to furtherevaluate the superior mesenteric vein thrombus and further treatment recommendations Continue with the high-protein diet, soft food diet. Avoid tough meats, raw veggies or other high fiber items at this time Continue with frequent walks to build back up your stamina We have you scheduled for an appointment on Saturday01/30/24 at 0800 AM Discharge Orders/Prescriptions Prescriptions: No Action amoxicillin-pot clavulanate 875-125 mg Tablet 1 tab PO BID 9 Days Qty: 18 0RF celecoxib 200 mg Capsule 200 mg PO DAILY 7 Days Qty: 7 0RF acetaminophen 500 mg Tablet 500 mg PO Q6H PRN PRN (Reason: Pain 1-10 Or Fever) Qty: 0 0RF oxycodone 5 mg Tablet 5 mg PO Q6H PRN PRN (Reason: Pain Score 4-10) 2 Days Qty: 6 0RF levofloxacin 750 mg tablet 750 mg PO DAILY Qty: 14 0RF Referrals / Follow Up: Marcellus Oakes MD [Med Staff - [place] Attorney] - Ricco García MD [Med Staff - Active Staff] - Care Physician,No Primary [Primary Care Provider] - Disposition Discharge Orders: Discharge Patient (Routine); Ordered 01/30/24 Ordered By: Dr. Ricco García Charges/Coding Visit Charges Inpatient E&M: 44367 Disch Hosp 01/30/242027 <Electronically signed by Ricco García MD> Cosigner Signature (if applicable): CC: Dr. Ricco García MD; No Primary Care Physician~ Signed [facility] Work Phone: [phone]) 847-664004-04-2024 Progress note Author Ricco García [facility] [facility] January 30, 2024 5:22pm Note Date/Time January 30, 2024 5:23 pm [facility] Medical Records Department [address] [place] [address] Progress Note - Surgery 01/30/24 1718 MR#: [id number] Acct: [id number] Name: TERRIE ALLEN Rep #:[id number] : 1980 43 From: Ricco Sierra PCP: Care Physician,No Primary Status :ADM IN [facility] Subject[facility] Subjective Patient seen and examined during AM rounds. He is found sleeping on arrival to the room. However he awakens easily and states that he had a restful night. Hedenies any acute events overnight. He confirms that he is had a bowel movement overnight and has had no issues with the diet. Objective Data Objective Data Vital Signs: Vital Signs Temp Pulse Resp BP Pulse Ox O2 Del Method O2 Flow Rate 99.1 F 82 16 126/76 H 94 Room Air 2 01/30/24 14:30 01/30/24 14:30 01/30/24 14:30 01/30/24 14:30 01/30/24 08:30 01/30/24 14:30 01/19/24 13:22 Oxygen Flow Rate (L/min) 2 Oxygen Delivery Method Room Air Weight: 221 lb 5.506 oz Body Mass Index (BMI) 27.6 Intake & Output: Intake and Output for Last 24 Hours 01/28/24 01/29/24 01/30/24 23:59 23:59 23:59 Intake Total 1224 / 1224 2139 / 2639 1999 Output Total 500 / 500 513 / 1213 1300 / 1300 Balance 724 / 724 1626 / 1426 700 / 700 Lab / Micro Data 01/30/24 06:38 01/30/24 06:38 Labs: Laboratory Results - last 24 hr 01/30/24 06:38: WBC 11.2 H, RBC 4.32 L, Hgb 11.7 L, Hct 37.3 L, MCV 86.3, MCH 27.1, MCHC 31.4 L, RDW Std Deviation 41.9, RDW Coeff of Khadijah 13.3, Plt Count 659 H, MPV 9.6, Immature Gran % (Auto) 1.000 H, Neut % (Auto) 68.5, Lymph % (Auto) 13.7 L, Butts % (Auto) 11.4 H, Eos % (Auto) 4.2, Baso % (Auto) 1.2 H, Absolute Neuts (auto) 7.7, Absolute Lymphs (auto) 1.54, Nucleated RBC % 0, Sodium 138, Potassium 4.1, Chloride 107, Carbon Dioxide 25.0, Anion Gap 6, BUN 16, Creatinine 1.37 H, Estim Creat Clear Calc 83.10, Est GFR (MDRD) Af Amer 73, Est GFR (MDRD) Non-Af 60, BUN/Creatinine Ratio 11.7, Glucose 91, Calcium 9.4, Phosphorus 3.5, Magnesium 2.2 Micro: Microbiology 01/24/24 12:35 Wound - Abdominal Gram Stain - Final 01/24/24 12:35 Wound - Abdominal Wound Culture - Final Enterococcus faecalis 01/24/24 12:35 Wound - Abdominal Anaerobic Culture - Final Bacteroides thetaiotaomicron 01/19/24 00:01 Aspirate - Abdominal Gram Stain - Final 01/19/24 00:01 Aspirate - Abdominal Wound Culture - Final Enterococcus faecalis Streptococcus group G Escherichia coli Pseudomonas aeruginosa 01/19/24 00:01 Aspirate - Abdominal Anaerobic Culture - Final Parabacteroides distasonis Bacteroides ovatus Bacteroides fragilis 01/18/24 18:41 Blood Culture (Wb) - Anticubital Left Blood Culture - Final No growth in 5 days. 01/18/24 19:00 Blood Culture (Wb) - Anticubital Right Blood Culture - Final No growth in 5 days. 01/18/24 20:49 Urine, Clean Catch Urine Culture - Final Culture exhibits no growth. Radiography Diagnostic Testing: Radiology Impression Abdomen/Pelvis CT 01/30/24 10:57 IMPRESSION: Status post right hemicolectomy with postoperative changes. There is a 3.8 side by 3 cm walled off fluid collection in the mesenteric fat at the operative site. Previously, this was more of a phlegmon. No evidence of bowel obstruction. Sigmoid diverticulosis. Electronically Signed: Charlie Melo MD at 14:16 EDT , Physical Exam Const oriented x3 and no apparent distress Constitutional Narrative: Patient appears anxious and in mild distress with apprehension Resp normal respiratory effort GI GI Narrative: Nondistended, soft, nontender to palpation, midline incision is now opened inferiorly and there is a brown?colored patch of the fascia where the umbilicus has been displaced. There is partial tracking deeply but no free communication to the peritoneal cavity. Wound appears somewhat improved today with some persistent necrotic fascia but to a lesser degree than previously. Fascial suture material is visible. Serous drainage to the gauze Assessment & Plan Assessment/Plan (1) S/P exploratory laparotomy: PLAN: Patient is postoperative day 12 from exploratory laparotomy with drainage of deep space abscess. Once again, there is no skin drainage from patient's wound and less necrotic debris within the wound base. Patient was transition toAugmentin plus ciprofloxacin per IDs recommendations yesterday, and while he remains afebrile his white count did increase today. With this increase a CT ofthe abdomen pelvis was ordered with oral and IV contrast. Previous reactive thrombocytosis appears further improved today. Mr. Allen does have evidence of acute kidney injury and malnutrition. Labs show a continued downtrend in his creatinine, but a fluid bolus was given prior to his IV contrast with his CT imaging as ordered above. Given his perioperative malnutrition we are continuing to encourage protein intake. Continue dressing changes 3 times daily with dry gauze. Continue to encourage ambulation. Ricco García MD General Surgery Endocrine Surgery Pager: [facility] [address] [facility], [address] [place] [address] Office: [phone] Charges/Coding Visit Charges Inpatient E&M: 85303 Subs Hosp L2 01/30/24 1722 <Electronically signed by Ricco García MD> Cosigner Signature (if applicable): CC: ~ Signed [facility] Work Phone: [phone]) 952-778304-03-2024 Progress note Author Ricco García [facility] January 29, 2024 9:19am Note Date/Time January 29, 2024 9:14 am [facility] Medical Records Department [address] [place] [address] Progress Note - Surgery 01/29/24 0910 MR#: [id number] Acct: [id number] Name: TERRIE ALLEN Rep #:[id number] : 1980 43 From: Ricco Sierra PCP: Care Physician,No Primary Status :ADM IN Location: [place] [address] Subjective Subjective Patient seen and examined during AM rounds. He reports that he is doing well and denies any acute events overnight. He confirms that he did have another formed bowel movement yesterday evening and denies any nausea. Objective Data Objective Data Vital Signs: Vital Signs Temp Pulse Resp BP Pulse Ox O2 Del Method O2 Flow Rate 97.7 F L 60 16 126/80 H 97 Room Air 2 01/29/24 08:00 01/29/24 08:00 01/29/24 08:00 01/29/24 08:00 01/29/24 08:00 01/29/24 08:00 01/19/24 13:22 Oxygen Flow Rate (L/min) 2 Oxygen Delivery Method Room Air Weight: 221 lb 5.506 oz Body Mass Index (BMI) 27.6 Intake & Output: Intake and Output for Last 24 Hours 01/27/24 01/28/24 01/29/24 23:59 23:59 23:59 Intake Total 1899.17 / 1899.17 1224 / 1224 1004 / 1004 Output Total 600 / 600 500 / 500 513 / 513 Balance 1299.17 / 1299.17 724 / 724 491 / 491 Lab / Micro Data 01/29/24 07:25 01/29/24 07:25 Labs: Laboratory Results - last 24 hr 01/29/24 06:24: WBC Cancelled, Corrected WBC Cancelled, RBC Cancelled, Hgb Cancelled, Hct Cancelled, MCV Cancelled, MCH Cancelled, MCHC Cancelled, RDW Std Deviation Cancelled, RDW Coeff of Khadijah Cancelled, Plt Count Cancelled, MPV Cancelled, Immature Gran % (Auto) Cancelled, Neut % (Auto) Cancelled, Lymph % (Auto) Cancelled, Butts % (Auto) Cancelled, Eos % (Auto) Cancelled, Baso % (Auto)Cancelled, Absolute Neuts (auto) Cancelled, Absolute Lymphs (auto) Cancelled, Total Counted Cancelled, Neutrophils % (Manual) Cancelled, Band Neutrophils % Cancelled, Lymphocytes % (Manual) Cancelled, Monocytes % (Manual) Cancelled, Eosinophils % (Manual) Cancelled, Basophils % (Manual) Cancelled, Metamyelocytes% Cancelled, Myelocytes % Cancelled, Promyelocytes % Cancelled, Blast Cells % Cancelled, Plasma Cell % (Manual) Cancelled, Other Cells % Cancelled, Nucleated RBC % Cancelled, Nucleated RBCs/100 WBC Cancelled, Differential Comment Cancelled, Diff Path Review Cancelled, Hypersegmented Neuts Cancelled, Atypical Lymphocytes Cancelled, Reactive Lymphocytes Cancelled, Smudge Cells Cancelled, Toxic Granulation Cancelled, Toxic Vacuolation Cancelled, Dohle Bodies Cancelled, Claudio Rods Cancelled, Platelet Estimate Cancelled, Plt Morphology Comment Cancelled, RBC Morphology Cancelled 01/29/24 06:24: RBC Morphology Cancelled, Polychromasia Cancelled, HypochromasiaCancelled, Basophilic Stippling Cancelled, Anisocytosis Cancelled, Microcytosis Cancelled, Macrocytosis Cancelled, Spherocytes Cancelled, Sickle Cells Cancelled, Target Cells Cancelled, Tear Drop Cells Cancelled, Ovalocytes Cancelled, Stomatocytes Cancelled, [place] Bodies Cancelled, [place] Cells Cancelled, Bite Cells Cancelled, Crenated Cell Cancelled, Acanthocytes (Spur) Cancelled, Rouleaux Cancelled, Schistocytes Cancelled, Sodium Cancelled, Potassium Cancelled, Chloride Cancelled, Carbon Dioxide Cancelled, Anion Gap Cancelled, BUN Cancelled, Creatinine Cancelled, Estim Creat Clear Calc Cancelled, Est GFR (MDRD) Af Amer Cancelled, Est GFR (MDRD) Non-Af Cancelled, BUN/Creatinine Ratio Cancelled, Glucose Cancelled, Calcium Cancelled, PhosphorusCancelled, Magnesium Cancelled 01/29/24 07:25: WBC 8.8, RBC 4.20 L, Hgb 11.8 L, Hct 36.5 L, MCV 86.9, MCH 28.1,MCHC 32.3, RDW Std Deviation 41.8, RDW Coeff of Khadijah 13.3, Plt Count 677 H, MPV 9.3, Immature Gran % (Auto) 1.300 H, Neut % (Auto) 64.1, Lymph % (Auto) 18.2 L, Butts % (Auto) 11.0 H, Eos % (Auto) 4.3, Baso % (Auto) 1.1 H, Absolute Neuts (auto) 5.6, Absolute Lymphs (auto) 1.60, Nucleated RBC % 0, Sodium 140, Potassium 4.0, Chloride 107, Carbon Dioxide 29.0, Anion Gap 4 L, BUN 12, Creatinine 1.42 H, Estim Creat Clear Calc 80.17, Est GFR (MDRD) Af Amer 70, Est GFR (MDRD) Non-Af 58 L, BUN/Creatinine Ratio 8.5 L, Glucose 96, Calcium 9.1, Phosphorus 3.3, Magnesium 2.3 Micro: Microbiology 01/24/24 12:35 Wound - Abdominal Gram Stain - Final 01/24/24 12:35 Wound - Abdominal Wound Culture - Final Enterococcus faecalis 01/24/24 12:35 Wound - Abdominal Anaerobic Culture - Preliminary 01/19/24 00:01 Aspirate - Abdominal Gram Stain - Final 01/19/24 00:01 Aspirate - Abdominal Wound Culture - Final Enterococcus faecalis Streptococcus group G Escherichia coli Pseudomonas aeruginosa 01/19/24 00:01 Aspirate - Abdominal Anaerobic Culture - Final Parabacteroides distasonis Bacteroides ovatus Bacteroides fragilis 01/18/24 18:41 Blood Culture (Wb) - Anticubital Left Blood Culture - Final No growth in 5 days. 01/18/24 19:00 Blood Culture (Wb) - Anticubital Right Blood Culture - Final No growth in 5 days. 01/18/24 20:49 Urine, Clean Catch Urine Culture - Final Culture exhibits no growth. Physical Exam Const oriented x3 and no apparent distress Constitutional Narrative: Patient appears anxious and in mild distress with apprehension Resp normal respiratory effort GI GI Narrative: Nondistended, soft, nontender to palpation, midline incision is now opened inferiorly and there is a brown?colored patch of the fascia where the umbilicus has been displaced. There is partial tracking deeply but no free communication to the peritoneal cavity. The wound appears more moist at the base and once again a small area of soft tissue necrosis was identified and this denuded tissue was removed. Fascial suture material is visible. No significant drainage on gauze removed from wound. Assessment & Plan Assessment/Plan (1) S/P exploratory laparotomy: PLAN: Patient is postoperative day 11 from exploratory laparotomy with drainage of deep space abscess. Over the weekend he did have to have the inferior portion of his wound opened and was found to have purulent drainage. This is now growing E faecalis. This appears to be the same Enterococcus that he has grown previously and is pansensitive. Once again, there is no significant drainage today but I did remove about 1 cm? of necrotic tissue from the wound base. 2 days ago patient was transition to Zosyn monotherapy and infectious disease continues to provide consultation. Encouragingly, patient's white bloodcell count is normal today and he remains afebrile. Previously he had evidence of reactive thrombocytosis, but this also appears to be improving today. Mr. Allen does have evidence of acute kidney injury and malnutrition. Labs show a downtrend in his creatinine with some additional IV fluid and encouraginghim to take more p.o. Given his perioperative malnutrition we are continuing toencourage protein intake. Continue dressing changes with dry gauze. Continue to encourage ambulation. Ricco García MD General Surgery Endocrine Surgery Pager: [facility] [address] [place] [address], [address] [place] [address] Office: [phone] Charges/Coding Visit Charges Inpatient E&M: 49416 Subs Hosp L2 01/29/24 0919 <Electronically signed by Ricco García MD> Cosigner Signature (if applicable): CC: ~ Signed [facility] Work Phone: [phone] Progress note Author Jarad Main [facility] January 28, 2024 1:05pm Note Date/Time January 28, 2024 1:05 pm [facility] Medical Records Department [address] [place] [address] Progress Note - Infect Disease 01/28/24 1304 MR#: [id number] Acct: [id number] Name: TERRIE ALLEN Rep #:[id number] : 1980 43 From: Jarad Main MD PCP: Care Physician,No Primary Status :ADM IN Location: [place] [address] ID ID: Route of nutrition/ use of supplements: [] Nutritional Intake: [] IV Site: [] John Catheter: [] Patient had a relatively uneventful night. Ambulating to the bathroom well. Tolerating p.o. intake well. No fevers. On Zosyn. Laboratory studies reviewed. Alert responsive does not appear toxic. Vital signs reviewed. Abdomen soft LUZ drain with scant fluid. Assessment & Plan Assessment/Plan (1) Abscess, intra-abdominal, postoperative: PLAN: Clinically improving on Zosyn. Continue to follow clinically. 01/28/24 1305 <Electronically signed by Jarad Main MD> Cosigner Signature (if applicable): CC: ~ Signed [facility] Work Phone: [phone] Progress note Author Ricco García [facility] January 28, 2024 7:50am Note Date/Time January 28, 2024 7:50 am [facility] Medical Records Department [address] [place] [address] Progress Note - Surgery 01/28/24 0744 MR#: [id number] Acct: [id number] Name: TERRIE ALLEN Rep #:[id number] : 1980 43 From: Ricco Sierra PCP: Care Physician,No Primary Status :ADM IN Location: [place] [address] Subjective Subjective Patient seen and examined during AM rounds. He reports that he is tired this morning after being up frequently having to urinate. Otherwise he states that he is doing well and confirms that he continues to tolerate a transitional diet (provided by his ) without difficulty. Objective Data Objective Data Vital Signs: Vital Signs Temp Pulse Resp BP Pulse Ox O2 Del Method O2 Flow Rate 98 F 70 16 130/77 H 96 Room Air 2 01/28/24 07:39 01/28/24 07:39 01/28/24 07:39 01/28/24 07:39 01/28/24 07:39 01/28/24 07:39 01/19/24 13:22 Oxygen Flow Rate (L/min) 2 Oxygen Delivery Method Room Air Weight: 221 lb 5.506 oz Body Mass Index (BMI) 27.6 Intake & Output: Intake and Output for Last 24 Hours 01/26/24 01/27/24 01/28/24 23:59 23:59 23:59 Intake Total 3640.83 / 3640.83 1899.17 / 1899.17 50 / 50 Output Total 600 / 600 600 / 600 0 / 0 Balance 3040.83 / 3040.83 1299.17 / 1299.17 50 / 50 Lab / Micro Data 01/28/24 05:58 01/27/24 06:18 Labs: Laboratory Results - last 24 hr 01/27/24 10:43: Vancomycin Trough 19.8 H 01/28/24 05:58: WBC 9.6, RBC 3.99 L, Hgb 10.8 L, Hct 34.6 L, MCV 86.7, MCH 27.1,MCHC 31.2 L, RDW Std Deviation 41.9, RDW Coeff of Khadijah 13.3, Plt Count 708 H, MPV9.8, Immature Gran % (Auto) 1.400 H, Neut % (Auto) 64.0, Lymph % (Auto) 17.0 L, Butts % (Auto) 11.9 H, Eos % (Auto) 4.7, Baso % (Auto) 1.0, Absolute Neuts (auto)6.2, Absolute Lymphs (auto) 1.63, Nucleated RBC % 0 Micro: Microbiology 01/24/24 12:35 Wound - Abdominal Gram Stain - Final 01/24/24 12:35 Wound - Abdominal Wound Culture - Final Enterococcus faecalis 01/24/24 12:35 Wound - Abdominal Anaerobic Culture - Preliminary 01/19/24 00:01 Aspirate - Abdominal Gram Stain - Final 01/19/24 00:01 Aspirate - Abdominal Wound Culture - Final Enterococcus faecalis Streptococcus group G Escherichia coli Pseudomonas aeruginosa 01/19/24 00:01 Aspirate - Abdominal Anaerobic Culture - Final Parabacteroides distasonis Bacteroides ovatus Bacteroides fragilis 01/18/24 18:41 Blood Culture (Wb) - Anticubital Left Blood Culture - Final No growth in 5 days. 01/18/24 19:00 Blood Culture (Wb) - Anticubital Right Blood Culture - Final No growth in 5 days. 01/18/24 20:49 Urine, Clean Catch Urine Culture - Final Culture exhibits no growth. Physical Exam Const oriented x3 and no apparent distress Constitutional Narrative: Patient appears anxious and in mild distress with apprehension Resp normal respiratory effort GI GI Narrative: Nondistended, soft, nontender to palpation, midline incision is now opened inferiorly and there is a brown?colored patch of the fascia where the umbilicus has been displaced. There is partial tracking deeply. A small area of soft tissue necrosis was identified and this denuded tissue was removed. Fascial suture material is visible. No significant drainage on gauze removed from wound. Assessment & Plan Assessment/Plan (1) S/P exploratory laparotomy: PLAN: Patient is postoperative day 10 from exploratory laparotomy with drainage of deep space abscess. Over the weekend he did have to have the inferior portion of his wound opened and was found to have purulent drainage. This is now growing E faecalis. This appears to be the same Enterococcus that he has grown previously and is pansensitive. There is no significant drainage today but I did remove about 1 cm? of necrotic tissue from the wound base. Yesterday,after consultation with both pharmacy and infectious disease Zosyn monotherapy was recommended and vancomycin was discontinued. Encouragingly, patient's whiteblood cell count is normal today and he remains afebrile, however, his platelet count continues to rise. I believe this is due to reactive thrombocytosis, but do not want to overlook possibility of something occult. Mr. Allen does have evidence of acute kidney injury and malnutrition. Labs arecurrently pending but patient states that he has been urinating frequently. Yesterday we discussed improving his protein intake and he shared relative intolerance of his protein shakes?likely owing to a food sensitivity. Therefore, he has been approved to take protein supplements that are included infood prepared by his . Continue dressing changes. Continue to encourage ambulation. Ricco García MD General Surgery Endocrine Surgery Pager: [facility] [address] [place] [address], [facility], [address] [place] [address] Office: [phone] Charges/Coding Visit Charges Inpatient E&M: 89464 Subs Hosp L2 01/28/24 0750 <Electronically signed by Ricco García MD> Cosigner Signature (if applicable): CC: ~ Signed [facility] Work Phone: [phone] 489-885804-01-2024 Consult note Author Ricco García [facility] January 27, 2024 4:32pm Note Date/Time January 27, 2024 11:3 7am [facility] Medical Records Department [address] [place] [address] Pharmacokinetic/Renal -Consult 01/27/24 1136 MR#: [id number] Acct: [id number] Name: TIFFANYTERRIE MEMO Rep #:[id number] : 1980 43 From: Toney Lerner PCP: Care Physician,No Primary Status :ADM IN Location: [place] [address] Consult Antibiotic Management Pharmacy has been consulted to manage selected antibiotic: Vancomycin Type of Intervention Type of Consult: Follow-up Suspected Infection Suspected Infection: Skin/Soft tissue Prior Doses of Antibiotics Prior Doses of Antibiotics Received/Current Regimen: Vancomycin 750 mg Q8H, last dose 01/27/24 @ 0359, patient is also on piperacillin/tazobactam q8h. Labs Labs: Sodium 142 mmol/L (136-145) 01/27/24 06:18 Potassium 3.2 mmol/L (3.5-5.1) L 01/27/24 06:18 Chloride 108 mmol/L (98-107) H 01/27/24 06:18 Carbon Dioxide 30.0 mmol/L (21.0-32.0) 01/27/24 06:18 Anion Gap 4 (5-15) L 01/27/24 06:18 BUN 6 mg/dL (7-18) L 01/27/24 06:18 Creatinine 1.56 mg/dL (0.70-1.30) H 01/27/24 06:18 Est GFR (MDRD) Af Amer 63 mL/min (>60) 01/27/24 06:18 Est GFR (MDRD) Non-Af 52 mL/min (>60) L 01/27/24 06:18 BUN/Creatinine Ratio 3.8 RATIO (10-20) L 01/27/24 06:18 Glucose 125 mg/dL (74-106) H 01/27/24 06:18 Vancomycin Trough 19.8 ug/mL (5.0-15.0) H 01/27/24 10:43 Random Vancomycin 15.3 ug/mL (0.0-15.0) H 01/25/24 17:30 Microbiology Microbiology: Microbiology 01/24/24 12:35 Wound - Abdominal Gram Stain - Final 01/24/24 12:35 Wound - Abdominal Wound Culture - Final Enterococcus faecalis 01/24/24 12:35 Wound - Abdominal Anaerobic Culture - Preliminary 01/19/24 00:01 Aspirate - Abdominal Gram Stain - Final 01/19/24 00:01 Aspirate - Abdominal Wound Culture - Final Enterococcus faecalis Streptococcus group G Escherichia coli Pseudomonas aeruginosa 01/19/24 00:01 Aspirate - Abdominal Anaerobic Culture - Final Parabacteroides distasonis Bacteroides ovatus Bacteroides fragilis 01/18/24 18:41 Blood Culture (Wb) - Anticubital Left Blood Culture - Final No growth in 5 days. 01/18/24 19:00 Blood Culture (Wb) - Anticubital Right Blood Culture - Final No growth in 5 days. 01/18/24 20:49 Urine, Clean Catch Urine Culture - Final Culture exhibits no growth. Dosing Weight Weight used for dosin.4 kg Estimated Creatinine Clearance Estimated Creatinine Clearance: ~73 Goal Trough Goal Trough: 10-15 mcg/mL Pharmacy Plan for Drug Dosing Pharmacy Plan for Drug Dosing: Trough = 19.8, new trough goal = 10-15, will reduce dose to 500 mg Q8H. Pharmacy Service will continue to monitor and adjust dosing as required. Follow-Up Labs Follow-Up Labs: Trough: Vancomycin Date/Time Labs Ordered Labs to be done on [date and time ordered]: 01/28/24 @ 1330 01/27/24 1138 <Electronically signed by Toney hook> Date _ Toney Yann 01/27/24 1632 <Electronically signed by Ricco García MD> Cosigner Signature (if applicable): Date Ricco García MD CC: ~ Signed [facility] Work Phone: [phone] 675-485004-01-2024 Consult note Author Jarad Main [facility] January 27, 2024 1:35pm Note Date/Time January 27, 2024 1:35 pm [facility] Medical Records Department [address] [place] [address] Consultation - Infectious Dx 01/27/24 1332 MR#: [id number] Acct: [id number] Name: TERRIE ALLEN Rep #:[id number] : 1980 43 From: Jarad Main MD PCP: Care Physician,No Primary Status :ADM IN Location: [place] [address] Assessment & Plan Assessment/Plan (1) Infection following a procedure, deep incisional surgical site, initial encounter: PLAN: will treat with Zosyn; will D/C Vanco; supportive care HPI Consult Data Date of Consult: 01/27/24 HPI Narrative Reason for Consultation: post-op bowel infection HPI Narrative: TERRIE ALLEN, is a 43 M who presents recent bowel surgery including hemicolectomy in December; admitted for bowel infection s/p re-exploration. Micro data reviewed. Currently on IV Vanco+Zosyn. [facility] Medical History (Updated 01/24/24 @ 00:03 by Background Daren) Collar bone fracture Home Medications acetaminophen 500 mg tablet 500 mg PO Q6H PRN PRN Pain 1-10 Or Fever #0 tabs 01/16/24 [Rx Last Taken Unknown] amoxicillin 875 mg-potassium clavulanate 125 mg tablet 1 tab PO BID atb 9 days #18 tabs 01/16/24 [Rx Last Taken Unknown] celecoxib 200 mg capsule 200 mg PO DAILY see 7 days #7 caps 01/16/24 [Rx Last Taken Unknown] oxycodone 5 mg tablet 5 mg PO Q6H PRN PRN Pain Score 4-10 2 days #6 tabs 01/16/24 [Rx Last Taken Unknown] levofloxacin 750 mg tablet 750 mg PO DAILY atb #14 tabs 01/17/24 [Rx Last Taken Unknown] Allergy/AdvReac Type Severity Reaction Status Date / Time No Known Allergies Allergy Verified 01/18/24 17:41 Surgical History (Updated 01/19/24 @ 08:[address] Veronica Garner MD) H/O hernia repair Social History Smoking Status: Never smoker Physical Exam Narrative Alert/responsive. Does not look toxic. heart S1-S2; lungs clear; abd soft/tenderNo erythema Lab / Micro Data 01/27/24 06:18 01/27/24 06:18 Labs: Laboratory Results - last 24 hr 01/26/24 18:00: Vancomycin Trough 19.2 H 01/27/24 06:18: WBC 11.1 H, RBC 3.83 L, Hgb 10.5 L, Hct 33.5 L, MCV 87.5, MCH 27.4, MCHC 31.3 L, RDW Std Deviation 42.9, RDW Coeff of Khadijah 13.5, Plt Count 686 H, MPV 9.6, Immature Gran % (Auto) 2.000 H, Neut % (Auto) 70.1 H, Lymph % (Auto)12.6 L, Butts % (Auto) 10.1 H, Eos % (Auto) 4.1, Baso % (Auto) 1.1 H, Absolute Neuts (auto) 7.8 H, Absolute Lymphs (auto) 1.40, Nucleated RBC % 0, Sodium 142, Potassium 3.2 L, Chloride 108 H, Carbon Dioxide 30.0, Anion Gap 4 L, BUN 6 L, Creatinine 1.56 H, Estim Creat Clear Calc 72.97, Est GFR (MDRD) Af Amer 63, Est GFR (MDRD) Non-Af 52 L, BUN/Creatinine Ratio 3.8 L, Glucose 125 H, Calcium 8.3 L 01/27/24 10:43: Vancomycin Trough 19.8 H Micro: Microbiology 01/24/24 12:35 Wound - Abdominal Gram Stain - Final 01/24/24 12:35 Wound - Abdominal Wound Culture - Final Enterococcus faecalis 01/24/24 12:35 Wound - Abdominal Anaerobic Culture - Preliminary 01/27/24 1335 <Electronically signed by Jarad Main MD> Cosigner Signature (if applicable): CC: Dr. Emily Aquino MD; Dr. Veronica Garner MD; No Primary Care Physician~ Signed [facility] Work Phone: 1(545) 557-278304-01-2024 Progress note Author Ricco García [facility] January 27, 2024 9:30am Note Date/Time January 27, 2024 9:19 am [facility] Medical Records Department [address] [place] [address] Progress Note - Surgery 01/27/24906 MR#: [id number] Acct: [id number] Name: TERRIE ALLEN Rep #:[id number] : 1980 43 From: Ricco Sierra PCP: Care Physician,No Primary Status :ADM IN [id number] Subject[facility] Subjective Patient seen and examined during AM rounds. He is found resting in bed. He states he is uncertain how he is feeling and wants to be told how he is doing. His , who is at bedside, shares that she believes her is not doing as well as yesterday. Mr. Allen does confirm that he is eating and having regular bowel function. Objective Data Objective Data Vital Signs: Vital Signs Temp Pulse Resp BP Pulse Ox O2 Del Method O2 Flow Rate 98.5 F 73 18 140/83 H 98 Room Air 2 01/27/24 04:00 01/27/24 04:00 01/27/24 04:00 01/27/24 04:00 01/27/24 04:00 01/27/24 04:00 01/19/24 13:22 Oxygen Flow Rate (L/min) 2 Oxygen Delivery Method Room Air Weight: 221 lb 5.506 oz Body Mass Index (BMI) 27.6 Intake & Output: Intake and Output for Last 24 Hours 01/25/24 01/26/24 01/27/24 23:59 23:59 23:59 Intake Total 2818.5 / 2818.5 3640.83 / 3640.83 739.17 / 739.17 Output Total 815 / 815 600 / 600 0 / 0 Balance 3040.83 / 3040.83 739.17 / 739.17 Lab / Micro Data 01/27/24 06:18 01/27/24 06:18 Labs: Laboratory Results - last 24 hr 01/26/24 18:00: Vancomycin Trough 19.2 H 01/27/24 06:18: WBC 11.1 H, RBC 3.83 L, Hgb 10.5 L, Hct 33.5 L, MCV 87.5, MCH 27.4, MCHC 31.3 L, RDW Std Deviation 42.9, RDW Coeff of Khadijah 13.5, Plt Count 686 H, MPV 9.6, Immature Gran % (Auto) 2.000 H, Neut % (Auto) 70.1 H, Lymph % (Auto)12.6 L, Butts % (Auto) 10.1 H, Eos % (Auto) 4.1, Baso % (Auto) 1.1 H, Absolute Neuts (auto) 7.8 H, Absolute Lymphs (auto) 1.40, Nucleated RBC % 0, Sodium 142, Potassium 3.2 L, Chloride 108 H, Carbon Dioxide 30.0, Anion Gap 4 L, BUN 6 L, Creatinine 1.56 H, Estim Creat Clear Calc 72.97, Est GFR (MDRD) Af Amer 63, Est GFR (MDRD) Non-Af 52 L, BUN/Creatinine Ratio 3.8 L, Glucose 125 H, Calcium 8.3 L Micro: Microbiology 01/24/24 12:35 Wound - Abdominal Gram Stain - Final 01/24/24 12:35 Wound - Abdominal Wound Culture - Final Enterococcus faecalis 01/24/24 12:35 Wound - Abdominal Anaerobic Culture - Preliminary 01/19/24 00:01 Aspirate - Abdominal Gram Stain - Final 01/19/24 00:01 Aspirate - Abdominal Wound Culture - Final Enterococcus faecalis Streptococcus group G Escherichia coli Pseudomonas aeruginosa 01/19/24 00:01 Aspirate - Abdominal Anaerobic Culture - Final Parabacteroides distasonis Bacteroides ovatus Bacteroides fragilis 01/18/24 18:41 Blood Culture (Wb) - Anticubital Left Blood Culture - Final No growth in 5 days. 01/18/24 19:00 Blood Culture (Wb) - Anticubital Right Blood Culture - Final No growth in 5 days. 01/18/24 20:49 Urine, Clean Catch Urine Culture - Final Culture exhibits no growth. Physical Exam Const oriented x3 Constitutional Narrative: Patient appears anxious and in mild distress with apprehension Resp normal respiratory effort GI GI Narrative: Nondistended, soft, nontender to palpation, midline incision is now opened inferiorly and there is a brown?colored patch of the fascia where the umbilicus has been displaced. This tracks partially inferiorly but does not appear to break through the fascial layer. Fascial suture material is visible. There is a small amount of drainage but this is largely bloody. There is a very faint odor to this drainage. Assessment & Plan Assessment/Plan (1) S/P exploratory laparotomy: PLAN: Patient is postoperative day 9 from exploratory laparotomy with drainage of deep space abscess. Over the weekend he did have to have the inferior portion of his wound opened and was found to have purulent drainage. This is now growing E faecalis. This appears to be the same Enterococcus that he has grown previously and is pansensitive. There is minimal drainage today with onlyslight area of brown discoloration of the fascia. I shared with patient and hiswife that this will be kept under close watch and could require operative debridement, however, given the ramifications I would like to avoid this scenario if at all possible and therefore keep the area wide open and draining as this infection seems to be primarily made of anaerobic bacteria. I am concerned that patient's vancomycin is leading to deteriorating renal function as he has had persistently high vancomycin troughs. I have discussed patient's case with pharmacology now for the second time and they suggest that Zosyn monotherapy may be appropriate, however, with patient developing a persistent infection in light of concurrent broader therapy I am reluctant to narrow the antibiotic spectrum at this time. Thus, I am proceeding with their other recommendation to pursue infectious disease consult. Infectious disease has been reached and we will plan to see the patient this afternoon. Their assistance is greatly appreciated. Mr. Allen does have evidence of acute kidney injury and this is despite receiving a bolus yesterday. I have stressed the importance of maintaining adequate hydration and he shares that sometimes when he drinks abundantly he decreases his appetite. Thus, I have suggested that he prioritize protein shakes to boost the caloric density. I did discuss targeting at a lower trough with pharmacy as a means of trying to preserve patient's kidney function as well. Continue dressing changes. Continue to encourage ambulation. Ricco García MD General Surgery Endocrine Surgery Pager: [facility] [address] [place] [address], [facility] [address] [place] [address] Office: [phone] Charges/Coding Visit Charges Inpatient E&M: 21946 Subs Hosp L2 01/27/24 0930 <Electronically signed by Ricco García MD> Cosigner Signature (if applicable): CC: ~ Signed [facility] Work Phone: 1(124) 160-472003-31-2024 Consult note Author Bulmaro Abrams [facility] January 26, 2024 7:02pm Note Date/Time January 26, 2024 7:0 2pm [facility] Medical Records Department [address] [place] [address] Pharmacokinetic/Renal -Consult 01/26/24 1901 MR#: [id number] Acct: [id number] Name: TERRIE ALLEN Rep #:[id number] : 1980 43 From: Bulmaro Abrams PCP: Care Physician,No Primary Status :ADM IN Location: [place] [address] Consult Antibiotic Management Pharmacy has been consulted to manage selected antibiotic: Vancomycin Type of Intervention Type of Consult: Follow-up Labs Labs: Sodium 142 mmol/L (136-145) 01/26/24 05:15 Potassium 3.6 mmol/L (3.5-5.1) 01/26/24 05:15 Chloride 108 mmol/L (98-107) H 01/26/24 05:15 Carbon Dioxide 31.0 mmol/L (21.0-32.0) 01/26/24 05:15 Anion Gap 3 (5-15) L 01/26/24 05:15 BUN 4 mg/dL (7-18) L 01/26/24 05:15 Creatinine 1.49 mg/dL (0.70-1.30) H 01/26/24 05:15 Est GFR (MDRD) Af Amer 66 mL/min (>60) 01/26/24 05:15 Est GFR (MDRD) Non-Af 55 mL/min (>60) L 01/26/24 05:15 BUN/Creatinine Ratio 2.7 RATIO (10-20) L 01/26/24 05:15 Glucose 100 mg/dL (74-106) 01/26/24 05:15 Vancomycin Trough 19.2 ug/mL (5.0-15.0) H 01/26/24 18:00 Random Vancomycin 15.3 ug/mL (0.0-15.0) H 01/25/24 17:30 Microbiology Microbiology: Microbiology 01/24/24 12:35 Wound - Abdominal Gram Stain - Final 01/24/24 12:35 Wound - Abdominal Wound Culture - Final Enterococcus faecalis 01/24/24 12:35 Wound - Abdominal Anaerobic Culture - Preliminary 01/19/24 00:01 Aspirate - Abdominal Gram Stain - Final 01/19/24 00:01 Aspirate - Abdominal Wound Culture - Final Enterococcus faecalis Streptococcus group G Escherichia coli Pseudomonas aeruginosa 01/19/24 00:01 Aspirate - Abdominal Anaerobic Culture - Final Parabacteroides distasonis Bacteroides ovatus Bacteroides fragilis 01/18/24 18:41 Blood Culture (Wb) - Anticubital Left Blood Culture - Final No growth in 5 days. 01/18/24 19:00 Blood Culture (Wb) - Anticubital Right Blood Culture - Final No growth in 5 days. 01/18/24 20:49 Urine, Clean Catch Urine Culture - Final Culture exhibits no growth. Dosing Weight Weight used for dosin.4 kg Estimated Creatinine Clearance Estimated Creatinine Clearance: 76 Goal Trough Goal Trough: 15-20 mcg/mL Pharmacy Plan for Drug Dosing Pharmacy Plan for Drug Dosing: Vancomycin trough level of 19.2, drawn approximately 6.5hrs post-dose, was within the target range of 15-20. Will continue dosing at 750mg q8h, and will re-draw a trough level in two days. Pharmacy Service will continue to monitor and adjust dosing as required. Follow-Up Labs Follow-Up Labs: Trough: Vancomycin Date/Time Labs Ordered Labs to be done on [date and time ordered]: 01/28/24 @1830 01/26/24 1902 <Electronically signed by Bulmaro chinchilla> Date _ Bulmaro Hart Signature (if applicable): Date CC: ~ Signed [facility] Work Phone: 1(500) 592-575403-31-2024 Progress note Author Db Barbosa [facility] January 26, 2024 8:41am Note Date/Time January 26, 2024 8:4 1am [facility] Medical Records Department [address] [place] [address] Progress Note - Surgery 01/26/2438 MR#: [id number] Acct: [id number] Name: TERRIE ALLEN Rep #:[id number] : 1980 43 From: Db collazo MD PCP: Care Physician,No Primary Status :ADM IN Location: [facility] [id number] Subjective Subjective Patient reports he is feeling better today but he has been medicated. He reports he is still having some pain below his umbilicus. He also reports it being painful and then change the wick. He reports that he is passing flatus and he tolerated more diet yesterday and he has this entire hospitalization. Objective Data Objective Data Vital Signs: Vital Signs Temp Pulse Resp BP Pulse Ox O2 Del Method O2 Flow Rate 97.8 F 72 18 125/75 H 95 Room Air 2 01/26/24 08:27 01/26/24 08:27 01/26/24 08:27 01/26/24 08:27 01/26/24 08:27 01/26/24 08:27 01/19/24 13:22 Oxygen Flow Rate (L/min) 2 Oxygen Delivery Method Room Air Weight: 221 lb 5.506 oz Body Mass Index (BMI) 27.6 Intake & Output: Intake and Output for Last 24 Hours 01/24/24 01/25/24 01/26/24 23:59 23:59 23:59 Intake Total 2376.25 / 2376.25 2818.5 / 2818.5 315 / 315 Output Total 1050 / 1050 815 / 815 0 / 0 Balance 1326.25 / 1326.25 2002.5 315 / 315 Lab / Micro Data 01/26/24 05:15 01/26/24 05:15 Labs: Laboratory Results - last 24 hr 01/25/24 08:13: Vancomycin Trough 23.5 H 01/25/24 17:30: Random Vancomycin 15.3 H 01/26/24 05:15: WBC 11.3 H, RBC 3.77 L, Hgb 10.5 L, Hct 32.8 L, MCV 87.0, MCH 27.9, MCHC 32.0, RDW Std Deviation 41.9, RDW Coeff of Khadijah 13.3, Plt Count 637 H,MPV 9.1, Immature Gran % (Auto) 1.800 H, Neut % (Auto) 67.3, Lymph % (Auto) 17.4L, Butts % (Auto) 9.3, Eos % (Auto) 3.6, Baso % (Auto) 0.6, Absolute Neuts (auto)7.6, Absolute Lymphs (auto) 1.96, Nucleated RBC % 0, Sodium 142, Potassium 3.6, Chloride 108 H, Carbon Dioxide 31.0, Anion Gap 3 L, BUN 4 L, Creatinine 1.49 H, Estim Creat Clear Calc 76.40, Est GFR (MDRD) Af Amer 66, Est GFR (MDRD) Non-Af 55 L, BUN/Creatinine Ratio 2.7 L, Glucose 100, Calcium 8.2 L, Phosphorus 4.5, Magnesium 2.0 Micro: Microbiology 01/24/24 12:35 Wound - Abdominal Gram Stain - Final 01/24/24 12:35 Wound - Abdominal Wound Culture - Final Enterococcus faecalis 01/19/24 00:01 Aspirate - Abdominal Gram Stain - Final 01/19/24 00:01 Aspirate - Abdominal Wound Culture - Final Enterococcus faecalis Streptococcus group G Escherichia coli Pseudomonas aeruginosa 01/19/24 00:01 Aspirate - Abdominal Anaerobic Culture - Final Parabacteroides distasonis Bacteroides ovatus Bacteroides fragilis 01/18/24 18:41 Blood Culture (Wb) - Anticubital Left Blood Culture - Final No growth in 5 days. 01/18/24 19:00 Blood Culture (Wb) - Anticubital Right Blood Culture - Final No growth in 5 days. 01/18/24 20:49 Urine, Clean Catch Urine Culture - Final Culture exhibits no growth. Physical Exam Const oriented x3 and no apparent distress Resp normal respiratory effort GI soft to palpation Inspection: Negative for abdominal distention Palpation: tender Assessment & Plan Assessment/Plan (1) S/P exploratory laparotomy: PLAN: The patient says he is feeling better. I changed the packing today and seems to be less purulent. The base of the wound seems beefy red. The patient reports he is tolerated more food yesterday than he has in the past. His creatinine slightly bumped today so I believe he may still be dehydrated so I will give him a fluid bolus today instead of changing his rate. Patient's whitecount also slightly increased. The patient's cultures were checked and all of the culture bacteria seem susceptible to the vancomycin he is already on. Unsure if the vancomycin is worsening his kidney function or if it is dehydration. I will rehydrate him today and recheck tomorrow. Continue dressing changes. Continue to encourage ambulation. Db Barbosa MD Pager: [facility] [address] [place] [address], [address] [place] [address] Office: 01/26/24 5008 <Electronically signed by Db Barbosa MD> Cosigner Signature (if applicable): CC: ~ Signed [facility] Work Phone: 1(332) 676-449303-30-2024 Consult note Author Carlota Ramirez [facility] January 25, 2024 6:24pm Note Date/Time January 25, 2024 10: 06am [facility] Medical Records Department [address] [place] [address] Pharmacokinetic/Renal -Consult 01/25/24 1005 MR#: [id number] Acct: [id number] Name: TERRIE ALLEN Rep #:[id number] : 1980 43 From: Carlota Ramirez PCP: Care Physician,No Primary Status :ADM IN Y [id number] Antibiotic Management Pharmacy has been consulted to manage selected antibiotic: Vancomycin Type of Intervention Type of Consult: Follow-up Labs Labs: Sodium 140 mmol/L (136-145) 01/25/24 05:57 Potassium 3.4 mmol/L (3.5-5.1) L 01/25/24 05:57 Chloride 107 mmol/L (98-107) 01/25/24 05:57 Carbon Dioxide 29.0 mmol/L (21.0-32.0) 01/25/24 05:57 Anion Gap 4 (5-15) L 01/25/24 05:57 BUN 4 mg/dL (7-18) L 01/25/24 05:57 Creatinine 1.26 mg/dL (0.70-1.30) 01/25/24 05:57 Est GFR (MDRD) Af Amer 80 mL/min (>60) 01/25/24 05:57 Est GFR (MDRD) Non-Af 66 mL/min (>60) 01/25/24 05:57 BUN/Creatinine Ratio 3.2 RATIO (10-20) L 01/25/24 05:57 Glucose 107 mg/dL (74-106) H 01/25/24 05:57 Vancomycin Trough 23.5 ug/mL (5.0-15.0) H 01/25/24 08:13 Random Vancomycin 10.0 ug/mL (0.0-15.0) 01/23/24 06:05 Microbiology Microbiology: Microbiology 01/24/24 12:35 Wound - Abdominal Gram Stain - Final 01/24/24 12:35 Wound - Abdominal Wound Culture - Preliminary GPC Poss Enterococcus sp 01/19/24 00:01 Aspirate - Abdominal Gram Stain - Final 01/19/24 00:01 Aspirate - Abdominal Wound Culture - Final Enterococcus faecalis Streptococcus group G Escherichia coli Pseudomonas aeruginosa 01/19/24 00:01 Aspirate - Abdominal Anaerobic Culture - Final Parabacteroides distasonis Bacteroides ovatus Bacteroides fragilis 01/18/24 18:41 Blood Culture (Wb) - Anticubital Left Blood Culture - Final No growth in 5 days. 01/18/24 19:00 Blood Culture (Wb) - Anticubital Right Blood Culture - Final No growth in 5 days. 01/18/24 20:49 Urine, Clean Catch Urine Culture - Final Culture exhibits no growth. Pharmacy Plan for Drug Dosing Pharmacy Plan for Drug Dosing: VANCOMYCIN LEVEL RECEIVED Current Vancomycin Dose: 1000MG IV Q8H Number of Doses Received: 3 (of current regimen) Vancomycin Level: 23.5 Hours Since Last Dose: 6.75hr Renal Function: 1.26 Renal Function Trend: slight increase, but stable Lab/Micro: wcx growing enterococcus Vancomycin Plan/Comments: Patient had a trough drawn which resulted in a value of 23.5 (goal 15-20). Since trough is >20, will hold vancomycin doses until trough is <20. Will check the patient's trough in 8 hrs and resume dosing if trough <20 at that time. Discontinue vancomycin 1000mg IV Q8hr for now Pending Level: *RANDOM* 01/25/24 @1700 Pharmacy Service will continue to monitor and adjust dosing as required. 01/25/24 1006 <Electronically signed by Carlota Ramirez > Date _ Carlota Ramirez Cosigner Signature (if applicable): Date CC: ~ Signed ADDENDUM by Carlota Ramirez on 01/25/24 at 1824 VANCOMYCIN LEVEL RECEIVED Current Vancomycin Dose: ON HOLD- was on 1000mg IV Q8h previously Number of Doses Received: several of different regimens Vancomycin Level: 15.3 Hours Since Last Dose: 16hr Renal Function: 1.26 Renal Function Trend: stable Lab/Micro: WCx growing enterococcus Vancomycin Plan/Comments: Patient had a random level drawn which resulted in a value of 15.3 (Goal 15-20). Now that patient's trough is <20 and within therapeutic goal, vancomycin will be resumed. Will restart the patient on vancomycin 750mg IV Q8h to start 01/25/24 @1900 Pending Level: 01/26/24 @1830, prior to 4th dose of new regimen. 01/25/24 1824 <Electronically signed by Carlota Ramirez > Date _ Carlota Ramirezneel Signature (if applicable): Date cc: ~* Signed [facility] Work Phone: 1(706) 279-433103-30-2024 Progress note Author Db Barbosa [facility] January 25, 2024 9:21am Note Date/Time January 25, 2024 9:2 2am [facility] Medical Records Department [address] [place] [address] Progress Note - Surgery 01/25/24918 MR#: [id number] Acct: [id number] Name: TERRIE ALLEN Rep #:[id number] : 1980 43 From: Db collazo MD PCP: Care Physician,No Primary Status :ADM IN Location: [place] [id number] Subjective Subjective Patient reports he tolerated some pudding for dinner but he had a lot of nausea yesterday. He is still having a lot of pain especially when laying back. He denies nausea or vomiting this morning. He is passing flatus. Objective Data Objective Data Vital Signs: Vital Signs Temp Pulse Resp BP Pulse Ox O2 Del Method O2 Flow Rate 98.3 F 83 16 120/77 97 Room Air 2 01/25/24 09:11 01/25/24 09:11 01/25/24 09:11 01/25/24 09:11 01/25/24 09:11 01/25/24 09:11 01/19/24 13:22 Oxygen Flow Rate (L/min) 2 Oxygen Delivery Method Room Air Weight: 221 lb 5.506 oz Body Mass Index (BMI) 27.6 Intake & Output: Intake and Output for Last 24 Hours 01/23/24 01/24/24 01/25/24 23:59 23:59 23:59 Intake Total 3335 / 3335 2376.25 / 2376.25 250 / 250 Output Total 505 / 505 1050 / 1050 10 Balance 2830 / 2830 1326.25 / 1326.25 240 / 240 Lab / Micro Data 01/25/24 05:57 01/25/24 05:57 Labs: Laboratory Results - last 24 hr 01/25/24 05:57: WBC 10.4, RBC 4.02 L, Hgb 10.8 L, Hct 34.5 L, MCV 85.8, MCH 26.9L, MCHC 31.3 L, RDW Std Deviation 40.4, RDW Coeff of Khadijah 13.0, Plt Count 624 H, MPV 9.6, Immature Gran % (Auto) 2.200 H, Neut % (Auto) 67.8, Lymph % (Auto) 15.2L, Butts % (Auto) 9.8, Eos % (Auto) 3.9, Baso % (Auto) 1.1 H, Absolute Neuts (auto) 7.0, Absolute Lymphs (auto) 1.58, Nucleated RBC % 0, Sodium 140, Potassium 3.4 L, Chloride 107, Carbon Dioxide 29.0, Anion Gap 4 L, BUN 4 L, Creatinine 1.26, Estim Creat Clear Calc 90.35, Est GFR (MDRD) Af Amer 80, Est GFR (MDRD) Non-Af 66, BUN/Creatinine Ratio 3.2 L, Glucose 107 H, Calcium 8.4 L 01/25/24 08:13: Vancomycin Trough 23.5 H Micro: Microbiology 01/24/24 12:35 Wound - Abdominal Gram Stain - Final 01/24/24 12:35 Wound - Abdominal Wound Culture - Preliminary GPC Poss Enterococcus sp 01/19/24 00:01 Aspirate - Abdominal Gram Stain - Final 01/19/24 00:01 Aspirate - Abdominal Wound Culture - Final Enterococcus faecalis Streptococcus group G Escherichia coli Pseudomonas aeruginosa 01/19/24 00:01 Aspirate - Abdominal Anaerobic Culture - Final Parabacteroides distasonis Bacteroides ovatus Bacteroides fragilis 01/18/24 18:41 Blood Culture (Wb) - Anticubital Left Blood Culture - Final No growth in 5 days. 01/18/24 19:00 Blood Culture (Wb) - Anticubital Right Blood Culture - Final No growth in 5 days. 01/18/24 20:49 Urine, Clean Catch Urine Culture - Final Culture exhibits no growth. Physical Exam Const oriented x3 and no apparent distress Resp normal respiratory effort GI soft to palpation Palpation: tender Assessment & Plan Assessment/Plan (1) S/P exploratory laparotomy: PLAN: The patient was still having pain at his incision site. The drain is still serous. He tolerated some full liquids it seems and I told him to stick with count of a full liquid or clear liquid diet for the day until he is really tolerating without nausea before we start transitional diet. I am leaving the drain in place until he is tolerating a diet per Dr. García's order. The patientstill had some pain at the lower portion of his incision when asked to point he pointed just below the umbilicus. When I pushed on this area some sanguinolent purulent fluid came from this area. I used a Q-tip and opened the lower part ofthe incision to below the bellybutton and there was a lot of bloody and purulentfluid mixed that was removed. I pushed down and nothing seem to be coming through the fascia or any sign of intra-abdominal abscess. This was packed [id number] and a new dressing was placed. The patient is hypokalemic. I am giving his potassium Phos and rechecking in the morning. Db Barbosa MD Pager: [facility] [address] [place] [address], [address] [place] [address] Office: 01/25/24920 <Electronically signed by Db Barbosa MD> Cosigner Signature (if applicable): CC: ~ Signed [facility] Work Phone: 1(433) 879-485603-29-2024 Progress note Author Veronica Garner [facility] January 24, 2024 3:58pm Note Date/Time January 24, 2024 8:0 5am [facility] Medical Records Department [address] [place], [place] [id number] Progress Note - Surgery 01/24/24801 MR#: [id number] Acct: [id number] Name: TERRIE ALLEN Rep #:[id number] : 1980 43 From: Veronica Garner MD PCP: Care Physician,No Primary Status :ADM IN Location: [place] [id number] Subjective Subjective Patient states he feels better today than yesterday, only really took clears yesterday due to some nausea still having bowel function Objective Data Objective Data Vital Signs: Vital Signs Temp Pulse Resp BP Pulse Ox O2 Del Method O2 Flow Rate 97.5 F L 70 18 130/78 H 97 Room Air 2 01/24/24 05:28 01/24/24 05:28 01/24/24 05:28 01/24/24 05:28 01/24/24 05:28 01/24/24 05:30 01/19/24 13:22 Oxygen Flow Rate (L/min) 2 Oxygen Delivery Method Room Air Weight: 221 lb 5.506 oz Body Mass Index (BMI) 27.6 Intake & Output: Intake and Output for Last 24 Hours 01/22/24 01/23/24 01/24/24 23:59 23:59 23:59 Intake Total 4411.83 / 4411.83 3335 / 3335 527.50 / 527.50 Output Total 2525 / 2525 505 / 505 550 / 550 Balance 1886.83 / 1886.83 2830 / 2830 -22.50 / -22.50 Lab / Micro Data 01/23/24 06:05 01/23/24 06:05 Micro: Microbiology 01/18/24 18:41 Blood Culture (Wb) - Anticubital Left Blood Culture - Final No growth in 5 days. 01/18/24 19:00 Blood Culture (Wb) - Anticubital Right Blood Culture - Final No growth in 5 days. 01/19/24 00:01 Aspirate - Abdominal Gram Stain - Final 01/19/24 00:01 Aspirate - Abdominal Wound Culture - Final Enterococcus faecalis Streptococcus group G Escherichia coli Pseudomonas aeruginosa 01/19/24 00:01 Aspirate - Abdominal Anaerobic Culture - Preliminary Checking for anaerobes, further studies to follow. 01/18/24 20:49 Urine, Clean Catch Urine Culture - Final Culture exhibits no growth. Physical Exam Const oriented x3 and no apparent distress Resp normal respiratory effort Cardio regular rate GI soft to palpation GI Narrative: Incision loosely reapproximated with nylon patient does have iodoform packing inbetween there is some purulent drainage?couple of the nylons were removed to allow for 3 times daily wet-to-dry dressings, no peritoneal signs, LUZ serous Palpation: tender other (Near incision) Assessment & Plan Assessment/Plan (1) Ileus: (2) S/P exploratory laparotomy: (3) Superior mesenteric vein thrombosis: (4) Abscess, intra-abdominal, postoperative: (5) Infection following a procedure, deep incisional surgical site, initial encounter: (6) Ileocolic intussusception: PLAN: Plan Status post exploratory laparotomy and washout for abscess. Advance diet from clears to transitional as patient is having bowel function Midline incision was loosely reapproximated previously-- did remove some of the sutures to allow for wet-to-dry 3 times daily in 2 locations. Continue Zosyn and vancomycin IV LUZ serous plan to remove when patient is eating well. Veronica Garner M.D. Pager: [phone] [facility] [address] [place] [address], [facility], [address] [place] [address] Office: [phone] 01/24/24 0805 <Electronically signed by Veronica Garner MD> Cosigner Signature (if applicable): CC: ~ Signed ADDENDUM by Dr. Veronica Garner MD on 01/24/24 at 1558 Addendum changed wet to dry about 12:30 with Clara- still purulent drainage from just above the umbilicus- Cx obtained and additional sutures were removed and staplesat umbilicus--continue wet to dry TID. Dr. Barbosa will be covering the weekend. 01/24/24 1558<Electronically signed by Veronica Garner MD> Cosigner Signature (if applicable): cc: ~* Signed [facility] Work Phone: 1(758) 431-474103-29-2024 Consult note Author Emily Mesa [facility] January 24, 2024 8:57am Note Date/Time January 24, 2024 8:5 5am [facility] Medical Records Department [address] [place] [address] Pharmacokinetic/Renal -Consult 01/24/24 0854 MR#: [id number] Acct: [id number] Name: TERRIE ALLEN Rep #:[id number] : 1980 43 From: Emily Mesa PCP: Care Physician,No Primary Status :ADM IN Y Location: [facility] [id number] Consult Antibiotic Management Pharmacy has been consulted to manage selected antibiotic: Vancomycin Type of Intervention Type of Consult: Follow-up Prior Doses of Antibiotics Prior Doses of Antibiotics Received/Current Regimen: Currently on 1250mg iv q8h. Labs Labs: Sodium 140 mmol/L (136-145) 01/24/24 07:50 Potassium 3.3 mmol/L (3.5-5.1) L 01/24/24 07:50 Chloride 107 mmol/L (98-107) 01/24/24 07:50 Carbon Dioxide 28.0 mmol/L (21.0-32.0) 01/24/24 07:50 Anion Gap 5 (5-15) 01/24/24 07:50 BUN 4 mg/dL (7-18) L 01/24/24 07:50 Creatinine 1.16 mg/dL (0.70-1.30) 01/24/24 07:50 Est GFR (MDRD) Af Amer 88 mL/min (>60) 01/24/24 07:50 Est GFR (MDRD) Non-Af 73 mL/min (>60) 01/24/24 07:50 BUN/Creatinine Ratio 3.4 RATIO (10-20) L 01/24/24 07:50 Glucose 127 mg/dL (74-106) H 01/24/24 07:50 Vancomycin Trough 21.4 ug/mL (5.0-15.0) H 01/24/24 07:50 Random Vancomycin 10.0 ug/mL (0.0-15.0) 01/23/24 06:05 Microbiology Microbiology: Microbiology 01/18/24 18:41 Blood Culture (Wb) - Anticubital Left Blood Culture - Final No growth in 5 days. 01/18/24 19:00 Blood Culture (Wb) - Anticubital Right Blood Culture - Final No growth in 5 days. 01/19/24 00:01 Aspirate - Abdominal Gram Stain - Final 01/19/24 00:01 Aspirate - Abdominal Wound Culture - Final Enterococcus faecalis Streptococcus group G Escherichia coli Pseudomonas aeruginosa 01/19/24 00:01 Aspirate - Abdominal Anaerobic Culture - Preliminary Checking for anaerobes, further studies to follow. 01/18/24 20:49 Urine, Clean Catch Urine Culture - Final Culture exhibits no growth. Dosing Weight Weight used for dosin.4 kg Estimated Creatinine Clearance Estimated Creatinine Clearance: 98ml/min Goal Trough Goal Trough: 15-20 mcg/mL Pharmacy Plan for Drug Dosing Pharmacy Plan for Drug Dosing: Trough today 21.4 and above desired range of 15-20mcg/ml. Recommend a decrease in dose to 1000mg iv q8h with new trough before 4th dose. Pharmacy Service will continue to monitor and adjust dosing as required. Follow-Up Labs Follow-Up Labs: Trough: Vancomycin (3.30.24 0830) 01/24/24 0857 <Electronically signed by Emily Mesa> Date _ Emily Hart Signature (if applicable): Date CC: ~ Signed [facility] Work Phone: 1(628) 159-710103-28-2024 Consult note Author Emily Kellerffy [facility] January 23, 2024 9:11am Note Date/Time January 23, 2024 9:0 8am [facility] Medical Records Department [address] [place] [address] Pharmacokinetic/Renal -Consult 01/23/24 0908 MR#: [id number] Acct: [id number] Name: TERRIE ALLEN MEMO Rep #:[id number] : 1980 43 From: Emily Mesa PCP: Care Physician,No Primary Status :ADM IN Location: [place] [id number] Consult Antibiotic Management Pharmacy has been consulted to manage selected antibiotic: Vancomycin Type of Intervention Type of Consult: Follow-up Prior Doses of Antibiotics Prior Doses of Antibiotics Received/Current Regimen: 1750mg iv q8h. Labs Labs: Sodium 141 mmol/L (136-145) 01/23/24 06:05 Potassium 3.3 mmol/L (3.5-5.1) L 01/23/24 06:05 Chloride 107 mmol/L (98-107) 01/23/24 06:05 Carbon Dioxide 29.0 mmol/L (21.0-32.0) 01/23/24 06:05 Anion Gap 5 (5-15) 01/23/24 06:05 BUN 9 mg/dL (7-18) 01/23/24 06:05 Creatinine 1.01 mg/dL (0.70-1.30) 01/23/24 06:05 Est GFR (MDRD) Af Amer 103 mL/min (>60) 01/23/24 06:05 Est GFR (MDRD) Non-Af 85 mL/min (>60) 01/23/24 06:05 BUN/Creatinine Ratio 8.9 RATIO (10-20) L 01/23/24 06:05 Glucose 107 mg/dL (74-106) H 01/23/24 06:05 Vancomycin Trough 24.9 ug/mL (5.0-15.0) H 01/22/24 16:30 Random Vancomycin 10.0 ug/mL (0.0-15.0) 01/23/24 06:05 Microbiology Microbiology: Microbiology 01/19/24 00:01 Aspirate - Abdominal Gram Stain - Final 01/19/24 00:01 Aspirate - Abdominal Wound Culture - Final Enterococcus faecalis Streptococcus group G Escherichia coli Pseudomonas aeruginosa 01/19/24 00:01 Aspirate - Abdominal Anaerobic Culture - Preliminary Checking for anaerobes, further studies to follow. 01/18/24 19:00 Blood Culture (Wb) - Anticubital Right Blood Culture - Preliminary No growth in 48 hours. 01/18/24 18:41 Blood Culture (Wb) - Anticubital Left Blood Culture - Preliminary No growth in 48 hours. 01/18/24 20:49 Urine, Clean Catch Urine Culture - Final Culture exhibits no growth. Dosing Weight Weight used for dosin.4 kg Estimated Creatinine Clearance Estimated Creatinine Clearance: 113ml/min Goal Trough Goal Trough: 15-20 mcg/mL Pharmacy Plan for Drug Dosing Pharmacy Plan for Drug Dosing: Random level this AM 10.0. Previous trough 24.9. Recommend resuming vancomycin at dose [place] 1250mg iv q8h. Trough before 4th dose. Pharmacy Service will continue to monitor and adjust dosing as required. Follow-Up Labs Follow-Up Labs: Trough: Vancomycin (3.29.24 0730) 01/23/24 0911 <Electronically signed by Emily Mesa> Date _ Emily Brionesneel Signature (if applicable): Date CC: ~ Signed [facility] Work Phone: 1(187) 611-633203-28-2024 Progress note Author Ni Alexander [facility] January 23, 2024 9:09am Note Date/Time January 23, 2024 9:0 9am [facility] Medical Records Department [address] [place] [address] Progress Note - Surgery 01/23/24 0850 MR#: [id number] Acct: [id number] Name: TERRIE ALLEN Rep #:[id number] : 1980 43 From: Ni RAMON PA-C PCP: Care Physician,No Primary Status :ADM IN Location: [place] [address] Subjective Subjective Patient evaluated walking back to bed when entering the room. He had just passedsmall amount of flatus and small formed BM. He notes being nauseated this morning starting at 4 AM. Patient notes his discomfort is improving. His abdominal spasms seem less. He has been walking and belching less. He notes his scrotum is still swollen. He is urinating well. He has been tolerating sips and chips well. he has been chewing gum. He notes getting some rest last night. He is still sore getting up and down. Objective Data Objective Data Vital Signs: Vital Signs Temp Pulse Resp BP Pulse Ox O2 Del Method O2 Flow Rate 98.1 F 87 18 137/84 H 97 Room Air 2 01/23/24 08:00 01/23/24 08:00 01/23/24 08:00 01/23/24 08:00 01/23/24 08:00 01/23/24 08:16 01/19/24 13:22 Oxygen Flow Rate (L/min) 2 Oxygen Delivery Method Room Air Weight: 221 lb 5.506 oz Body Mass Index (BMI) 27.6 Intake & Output: Intake and Output for Last 24 Hours 01/21/24 01/22/24 01/23/24 23:59 23:59 23:59 Intake Total 4419.16 / 4669.16 4411.83 / 4411.83 1320 / 1320 Output Total 965 / 1565 2525 / 2525 Balance 3454.16 / 3104.16 1886.83 / 1886.83 1320 / 1320 Lab / Micro Data 01/23/24 06:05 01/23/24 06:05 Labs: Laboratory Results - last 24 hr 01/22/24 16:30: Vancomycin Trough 24.9 H 01/22/24 16:49: POC Glucose 79 01/23/24 06:05: WBC 8.6, RBC 3.90 L, Hgb 10.8 L, Hct 33.7 L, MCV 86.4, MCH 27.7,MCHC 32.0, RDW Std Deviation 40.7, RDW Coeff of Khadijah 13.0, Plt Count 483 H, MPV 9.1, Immature Gran % (Auto) 2.000 H, Neut % (Auto) 59.8, Lymph % (Auto) 21.1, Butts % (Auto) 10.3 H, Eos % (Auto) 6.0 H, Baso % (Auto) 0.8, Absolute Neuts (auto) 5.1, Absolute Lymphs (auto) 1.82, Nucleated RBC % 0, Differential CommentSCANNED, Sodium 141, Potassium 3.3 L, Chloride 107, Carbon Dioxide 29.0, Anion Gap 5, BUN 9, Creatinine 1.01, Estim Creat Clear Calc 112.71, Est GFR (MDRD) Af Amer 103, Est GFR (MDRD) Non-Af 85, BUN/Creatinine Ratio 8.9 L, Glucose 107 H, Calcium 8.2 L, Total Bilirubin 0.70, AST 55 H, ALT 73 H, Alkaline Phosphatase 82, Total Protein 5.5 L, Albumin 2.0 L, Globulin 3.5, Albumin/Globulin Ratio 0.6L, Random Vancomycin 10.0 Micro: Microbiology 01/19/24 00:01 Aspirate - Abdominal Gram Stain - Final 01/19/24 00:01 Aspirate - Abdominal Wound Culture - Final Enterococcus faecalis Streptococcus group G Escherichia coli Pseudomonas aeruginosa 01/19/24 00:01 Aspirate - Abdominal Anaerobic Culture - Preliminary Checking for anaerobes, further studies to follow. 01/18/24 19:00 Blood Culture (Wb) - Anticubital Right Blood Culture - Preliminary No growth in 48 hours. 01/18/24 18:41 Blood Culture (Wb) - Anticubital Left Blood Culture - Preliminary No growth in 48 hours. 01/18/24 20:49 Urine, Clean Catch Urine Culture - Final Culture exhibits no growth. Radiography Diagnostic Testing: Radiology Impression KUB X-Ray 01/22/24 09:10 IMPRESSION: Nonspecific bowel gas pattern. Electronically Signed: Charlie Melo MD at 9:38 EDT , Physical Exam GI GI Narrative: Abdomen- less distended, soft. Packing was removed from in between the sutures which were placed yesterday to assist with reapproximating the wound. Plain packing was replaced. There was some oozing at the superior aspect of the incision. Pressure dressing was applied followed by additional dry gauze and ABDpad secured with medipore tape. Less tender in the right lower quadrant. Assessment & Plan Assessment/Plan (1) Ileus: (2) S/P exploratory laparotomy: (3) Superior mesenteric vein thrombosis: (4) Abscess, intra-abdominal, postoperative: (5) Infection following a procedure, deep incisional surgical site, initial encounter: (6) Ileocolic intussusception: PLAN: Plan I am following this patient in conjunction with Dr. García. He has independently evaluated this patient. Continue to encourage ambulation and I.S Continue to limit narcotic usage to encourage bowel function. Continue to wear abdominal binder when ambulating. May leave the binder open when sitting in the chair or laying in bed. Change abdominal midline incision dressing daily with plain packing change Continue to monitor the LUZ drainage output for change in drainage color and odor. Hopeful removal tomorrow, once patient is tolerating more of a diet and bowel function Cultures from intraabdominal final are Strep Group G, E. Faecalis, pseudomonas aeruginosa, and E Coli. Anaerobic still pending. Cultures from incision returned as E. Faecalis, pseudomonas aeruginosa, B. fragilis, and actinomyces naeslundii. Blood and urine cultures negative. Continue Zosyn and Vanco for 1 more day May use a K pad for comfort or ice Labs reviewed. WBC returned as 8.6 which has decreased from 9.3 yesterday. Will order labs for tomorrow Potassium is 3.3 today. Will replace. Continue anticoagulation Await further bowel function. Once more flatus and BM, will increase diet to sips of clears and continue to go slow. We will continue to closely monitor this patient Charges/Coding Visit Charges Inpatient E&M: 34428 Subs Hosp L1 (post-op; no charge) 01/23/24 0909 <Electronically signed by Ni RAMON PA-C> Cosigner Signature (if applicable): CC: ~ Signed [facility] Work Phone: [phone]) 938-986403-27-2024 Consult note Author Carlota Ramirez [facility] January 22, 2024 5:31pm Note Date/Time January 22, 2024 5:3 1pm [facility] Medical Records Department [address] [place] [address] Pharmacokinetic/Renal -Consult 01/22/24 1731 MR#: [id number] Acct: [id number] Name: TERRIE ALLEN Rep #:[id number] : 1980 43 From: Carlota Ramirez PCP: Care Physician,No Primary Status :ADM IN Location: [place] [address] Consult Antibiotic Management Pharmacy has been consulted to manage selected antibiotic: Vancomycin Type of Intervention Type of Consult: Follow-up Labs Labs: Sodium 141 mmol/L (136-145) 01/22/24 06:18 Potassium 3.6 mmol/L (3.5-5.1) 01/22/24 06:18 Chloride 111 mmol/L (98-107) H 01/22/24 06:18 Carbon Dioxide 24.0 mmol/L (21.0-32.0) 01/22/24 06:18 Anion Gap 6 (5-15) 01/22/24 06:18 BUN 10 mg/dL (7-18) 01/22/24 06:18 Creatinine 0.78 mg/dL (0.70-1.30) 01/22/24 06:18 Est GFR (MDRD) Af Amer 140 mL/min (>60) 01/22/24 06:18 Est GFR (MDRD) Non-Af 116 mL/min (>60) 01/22/24 06:18 BUN/Creatinine Ratio 12.9 RATIO (10-20) 01/22/24 06:18 Glucose 83 mg/dL (74-106) 01/22/24 06:18 Vancomycin Trough 24.9 ug/mL (5.0-15.0) H 01/22/24 16:30 Microbiology Microbiology: Microbiology 01/19/24 00:01 Aspirate - Abdominal Gram Stain - Final 01/19/24 00:01 Aspirate - Abdominal Wound Culture - Final Enterococcus faecalis Streptococcus group G Escherichia coli Pseudomonas aeruginosa 01/19/24 00:01 Aspirate - Abdominal Anaerobic Culture - Preliminary Checking for anaerobes, further studies to follow. 01/18/24 19:00 Blood Culture (Wb) - Anticubital Right Blood Culture - Preliminary No growth in 48 hours. 01/18/24 18:41 Blood Culture (Wb) - Anticubital Left Blood Culture - Preliminary No growth in 48 hours. 01/18/24 20:49 Urine, Clean Catch Urine Culture - Final Culture exhibits no growth. Goal Trough Goal Trough: 15-20 mcg/mL Pharmacy Plan for Drug Dosing Pharmacy Plan for Drug Dosing: VANCOMYCIN LEVEL RECEIVED Current Vancomycin Dose: 1750mg IV Q8h Number of Doses Received: 3 (of current regimen) Vancomycin Level: 24.9 Hours Since Last Dose: 8hrs Renal Function: 0.78 Renal Function Trend: stable Lab/Micro: Cx growing several organisms, including enterococcus Vancomycin Plan/Comments: Patient had a trough drawn which resulted in a value of 24.9 (goal 15-20). Since trough is above therapeutic goal, will hold subsequent doses of vancomycin until trough is <20. Discontinuing vancomycin 1750mg IV Q8h at this time Pending Level: *RANDOM* level 01/23/24 @0600 (with AM labs) Pharmacy Service will continue to monitor and adjust dosing as required. 01/22/24 6543 <Electronically signed by Carlota Ramirez > Date _ Carlota Ramirez Cosigner Signature (if applicable): Date CC: ~ Signed [facility] Work Phone: [phone]) 823-321503-27-2024 Procedure [facility] 01-22-2024 Progress note Author Ni Alexander [facility] January 22, 2024 11:09am Note Date/Time January 22, 2024 9:0 9am [facility] Medical Records Department [address] [place] [address] Progress Note - Surgery 01/22/24907 MR#: [id number] Acct: [id number] Name: TERRIE ALLEN Rep #:[id number] : 1980 43 From: Ni RAMON PA-C PCP: Care Physician,No Primary Status :ADM IN Location: [place] [address] Subjective Subjective Patient evaluated resting comfortably in bed. He notes he had a rough night lastnight. He notes this morning not feeling well. He states he has more belching. He notes having a horrible experience during the KUB yesterday. He denies any vomiting. He was tolerating clear liquid diet, however belching had increased. He notes abdominal pain in the right lower quadrant. No fever noted over the last 24 hours. Objective Data Objective Data Vital Signs: Vital Signs Temp Pulse Resp BP Pulse Ox O2 Del Method O2 Flow Rate 98.6 F 84 18 124/77 H 95 Room Air 2 01/22/24 07:49 01/22/24 07:49 01/22/24 07:49 01/22/24 07:49 01/22/24 07:49 01/22/24 07:49 01/19/24 13:22 Oxygen Flow Rate (L/min) 2 Oxygen Delivery Method Room Air Weight: 221 lb 5.506 oz Body Mass Index (BMI) 27.6 Intake & Output: Intake and Output for Last 24 Hours 01/20/24 01/21/24 01/22/24 23:59 23:59 23:59 Intake Total 3629.41 / 3629.41 4419.16 / 4669.16 2155.83 / 2155.83 Output Total 713 / 1213 965 / 1565 850 / 850 Balance 2916.41 / 2416.41 3454.16 / 3104.16 1305.83 / 1305.83 Lab / Micro Data 01/22/24 06:18 01/22/24 06:18 Labs: Laboratory Results - last 24 hr 01/21/24 15:57: Vancomycin Trough 11.8 01/22/24 06:18: WBC 9.3, RBC 3.61 L, Hgb 9.8 L, Hct 31.6 L, MCV 87.5, MCH 27.1, MCHC 31.0 L, RDW Std Deviation 41.6, RDW Coeff of Khadijah 13.0, Plt Count 460 H, MPV10.1, Immature Gran % (Auto) 1.400 H, Neut % (Auto) 60.8, Lymph % (Auto) 20.7, Butts % (Auto) 10.0, Eos % (Auto) 6.5 H, Baso % (Auto) 0.6, Absolute Neuts (auto)5.6, Absolute Lymphs (auto) 1.92, Nucleated RBC % 0, Sodium 141, Potassium 3.6, Chloride 111 H, Carbon Dioxide 24.0, Anion Gap 6, BUN 10, Creatinine 0.78, EstimCreat Clear Calc 145.95, Est GFR (MDRD) Af Amer 140, Est GFR (MDRD) Non-Af 116, BUN/Creatinine Ratio 12.9, Glucose 83, Calcium 7.8 L, Phosphorus 2.6, Magnesium 2.0 Micro: Microbiology 01/19/24 00:01 Aspirate - Abdominal Gram Stain - Final 01/19/24 00:01 Aspirate - Abdominal Wound Culture - Final Enterococcus faecalis Streptococcus group G Escherichia coli Pseudomonas aeruginosa 01/19/24 00:01 Aspirate - Abdominal Anaerobic Culture - Preliminary Checking for anaerobes, further studies to follow. 01/18/24 19:00 Blood Culture (Wb) - Anticubital Right Blood Culture - Preliminary No growth in 48 hours. 01/18/24 18:41 Blood Culture (Wb) - Anticubital Left Blood Culture - Preliminary No growth in 48 hours. 01/18/24 20:49 Urine, Clean Catch Urine Culture - Final Culture exhibits no growth. Physical Exam GI GI Narrative: Abdomen- slightly more distended this morning. Pain in the right lower quadrant where LUZ drain is located. Hypoactive bowel sounds. LUZ drain with serosanguineous drainage. Assessment & Plan Assessment/Plan (1) S/P exploratory laparotomy: (2) Abscess, intra-abdominal, postoperative: (3) Ileus: (4) Infection following a procedure, deep incisional surgical site, initial encounter: PLAN: Plan I am following this patient in conjunction with Dr. García. He has independently evaluated this patient. Continue to encourage ambulation and I.S Switch Valium to IV Ativan 1 mg q 4H. Continue to use Tylenol alternating with the Ativan to avoid narcotics if possible Continue to wear abdominal binder when ambulating. May leave the binder open when sitting in the chair or laying in bed. Change abdominal midline incision dressing three times daily with damp to dry gauze dressings. Continue to monitor the LUZ drainage output for change in drainage color and odor. Hopeful removal tomorrow Cultures from intraabdominal preliminary are Strep Group G, Gram negative rods, GNR lactose service learning coordinator, GNR Poss pseudomonas, GPC poss enterococcus. Anaerobic still pending. Cultures from incision returned as E. Faecalis, pseudomonas aeruginosa, B. fragilis, and actinomyces naeslundii. Vanco was added and will continue Zosyn May use a K pad for comfort or ice Discontinue cardiac monitoring Labs pending. WBC returned as 9.3 which has decreased from 10.8 yesterday. Continue anticoagulation Will order KUB today to assess distention Discontinue John Will provide 20mg dose of Lasix x 1 this morning Hopeful reapproximation of the incision later today or tomorrow Continue sips and chips at this time We will continue to closely monitor this patient Charges/Coding Visit Charges Inpatient E&M: 82293 Subs Hosp L1 (post-op; no charge) 01/22/24 1101 <Electronically signed by Ni RAMON PA-C> Cosigner Signature (if applicable): CC: ~ Signed [facility] Work Phone: 1(150) 774-413103-26-2024 Consult note Author Ricco García [facility] January 21, 2024 5:37pm Note Date/Time January 21, 2024 5:1 5pm [facility] Medical Records Department [address] [place] [address] [place] [address] Pharmacokinetic/Renal -Consult 01/21/24 1715 MR#: [id number] Acct: [id number] Name: TERRIE ALLEN Rep #:[id number] : 1980 43 From: Toney Lerner PCP: Care Physician,No Primary Status :ADM IN Y Location: [place] [address] Consult Antibiotic Management Pharmacy has been consulted to manage selected antibiotic: Vancomycin Type of Intervention Type of Consult: Follow-up Suspected Infection Suspected Infection: Skin/Soft tissue Prior Doses of Antibiotics Prior Doses of Antibiotics Received/Current Regimen: Vancomycin 1250 mg Q8H given 01/19 @ 2327 and 01/20 @ 0836 Labs Labs: Sodium 140 mmol/L (136-145) 01/21/24 06:49 Potassium 3.7 mmol/L (3.5-5.1) 01/21/24 06:49 Chloride 108 mmol/L (98-107) H 01/21/24 06:49 Carbon Dioxide 24.0 mmol/L (21.0-32.0) 01/21/24 06:49 Anion Gap 8 (5-15) 01/21/24 06:49 BUN 16 mg/dL (7-18) 01/21/24 06:49 Creatinine 0.84 mg/dL (0.70-1.30) 01/21/24 06:49 Est GFR (MDRD) Af Amer 128 mL/min (>60) 01/21/24 06:49 Est GFR (MDRD) Non-Af 106 mL/min (>60) 01/21/24 06:49 BUN/Creatinine Ratio 19.0 RATIO (10-20) 01/21/24 06:49 Glucose 89 mg/dL (74-106) 01/21/24 06:49 Vancomycin Trough 11.8 ug/mL (5.0-15.0) 01/21/24 15:57 Microbiology Microbiology: Microbiology 01/18/24 19:00 Blood Culture (Wb) - Anticubital Right Blood Culture - Preliminary No growth in 48 hours. 01/18/24 18:41 Blood Culture (Wb) - Anticubital Left Blood Culture - Preliminary No growth in 48 hours. 01/19/24 00:01 Aspirate - Abdominal Gram Stain - Final 01/19/24 00:01 Aspirate - Abdominal Wound Culture - Preliminary GPC Poss Enterococcus sp Streptococcus group G Gram negative anil GNR lactose service learning coordinator GNR Poss Pseudomonas sp 01/19/24 00:01 Aspirate - Abdominal Anaerobic Culture - Preliminary Checking for anaerobes, further studies to follow. 01/18/24 20:49 Urine, Clean Catch Urine Culture - Final Culture exhibits no growth. Dosing Weight Weight used for dosin.4 kg Estimated Creatinine Clearance Estimated Creatinine Clearance: ~135 Goal Trough Goal Trough: 15-20 mcg/mL Pharmacy Plan for Drug Dosing Pharmacy Plan for Drug Dosing: Vancomycin trough = 11.8, will increase to 1750 mg IV Q8H Pharmacy Service will continue to monitor and adjust dosing as required. Follow-Up Labs Follow-Up Labs: Trough: Vancomycin Date/Time Labs Ordered Labs to be done on [date and time ordered]: 01/22/24 @ 1630 01/21/24 171 <Electronically signed by Toney hook> Date _ Toney Lerner 01/21/24 1737 <Electronically signed by Ricco García MD> Cosigner Signature (if applicable): Date Ricco García MD CC: ~ Signed [facility] Work Phone: 1(822) 131-576003-26-2024 Progress note Author Ni Alexander [facility] January 21, 2024 8:04am Note Date/Time January 21, 2024 7:4 9am [facility] Medical Records Department [address] [place] [address] Progress Note - Surgery 01/21/24 0742 MR#: [id number] Acct: [id number] Name: TERRIE ALLEN Rep #:[id number] : 1980 43 From: Ni RAMON PA-C PCP: Care Physician,No Primary Status :ADM IN Location: [place] [address] Subjective Subjective Patient resting comfortably in bed. He continues to note abdominal spasms, however they seem less. He denies nausea, vomiting. He feels his bowels are turning, however no flatus or BM at this time. He is tolerating ice chips. No concerns or complaints at this time. Objective Data Objective Data Vital Signs: Vital Signs Temp Pulse Resp BP Pulse Ox O2 Del Method O2 Flow Rate 98.9 F 89 16 119/69 96 Room Air 2 01/21/24 06:10 01/21/24 06:10 01/21/24 02:26 01/21/24 02:26 01/21/24 02:26 01/21/24 02:01/19/24 13:22 Oxygen Flow Rate (L/min) 2 Oxygen Delivery Method Room Air Weight: 221 lb 5.506 oz Body Mass Index (BMI) 27.6 Intake & Output: Intake and Output for Last 24 Hours 01/19/24 01/20/24 01/21/24 23:59 23:59 23:59 Intake Total 2174.17 / 2174.17 3629.41 / 3629.41 1325 / 1325 Output Total 935 / 935 713 / 1213 510 / 510 Balance 1239.17 / 1239.17 2916.41 / 2416.41 815 / 815 Lab / Micro Data 01/21/24 06:49 01/20/24 03:46 Labs: Laboratory Results - last 24 hr 01/20/24 15:14: Lactic Acid 1.1 01/21/24 06:49: WBC 10.8, RBC 3.70 L, Hgb 10.1 L, Hct 32.3 L, MCV 87.3, MCH 27.3, MCHC 31.3 L, RDW Std Deviation 41.2, RDW Coeff of Khadijah 13.0, Plt Count 384,MPV 9.7, Immature Gran % (Auto) 0.900, Neut % (Auto) 68.4, Lymph % (Auto) 15.3 L, Butts % (Auto) 11.3 H, Eos % (Auto) 3.5, Baso % (Auto) 0.6, Absolute Neuts (auto) 7.3, Absolute Lymphs (auto) 1.65, Nucleated RBC % 0 Micro: Microbiology 01/19/24 00:01 Aspirate - Abdominal Gram Stain - Final 01/19/24 00:01 Aspirate - Abdominal Wound Culture - Preliminary GPC Poss Enterococcus sp Streptococcus group G Gram negative anil GNR lactose service learning coordinator GNR Poss Pseudomonas sp 01/18/24 20:49 Urine, Clean Catch Urine Culture - Final Culture exhibits no growth. Physical Exam GI GI Narrative: Abdomen- slightly distended. Soft. Generalized tenderness. Positive bowel sounds. Midline incision: ABD pad changed. Morning shift just placed the damp gauze. There was serosanguineous fluid within the umbilicus that was cleaned out. Dry gauze followed by an ABD pad was applied. There does also appear to be a little ischemia at the staple at the curve of the umbilicus; continue to observe. Remaining incisions c/d/i. [place] intact. LUZ drain with serosanguineous fluid appears to be light pink in color, improving from yesterday. Drain was stripped. Assessment & Plan Assessment/Plan (1) S/P exploratory laparotomy: (2) Superior mesenteric vein thrombosis: (3) Abscess, intra-abdominal, postoperative: (4) Infection following a procedure, deep incisional surgical site, initial encounter: PLAN: Plan I am following this patient in conjunction with Dr. García. He has independently evaluated this patient. Continue to encourage ambulation and I.S Muscle spasms most likely from deep sutures. Alternate Valium, Toradol, Tylenol as needed for pain Continue to wear abdominal binder when ambulating. May leave the binder open when sitting in the chair or laying in bed. Change abdominal midline incision dressing three times daily with damp to dry gauze dressings. Continue to monitor the LUZ drainage output for change in drainage color and odor. Use Tylenol as needed for fevers and pain Cultures from intraabdominal preliminary are Strep Group G, Gram negative rods, GNR lactose service learning coordinator, GNR Poss pseudomonas, GPC poss enterococcus. Anaerobic still pending. Cultures from incision returned as E. Faecalis, pseudomonas aeruginosa, B. fragilis, and actinomyces naeslundii. Vanco was added and will continue Zosyn May use a K pad for comfort or ice Continue cardiac monitoring for at least an additional 24 hours; until tachycardia resolves. Hopeful removal tomorrow Labs pending. WBC returned as 10.8 which has decreased from 16.1 yesterday. Continue anticoagulation Will order KUB today to assess distention Continue John. May D/C John tomorrow We will continue to closely monitor this patient Charges/Coding Visit Charges Inpatient E&M: 84731 Subs Hosp L1 (no charge; post-op) 01/21/24 0804 <Electronically signed by Ni RAMON PA-C> Cosigner Signature (if applicable): CC: ~ Signed [facility] Work Phone: 1(491) 404-414503-25-2024 Consult note Author Ricco García [facility] January 20, 2024 5:19pm Note Date/Time January 20, 2024 4:4 5pm [facility] Medical Records Department [address] [place] [address] Pharmacokinetic/Renal -Consult 01/20/24 1645 MR#: [id number] Acct: [id number] Name: TERRIE ALLEN Rep #:[id number] : 1980 43 From: Margaret Conrad PCP: Care Physician,No Primary Status :ADM IN Location: [place] [address] Consult Antibiotic Management Pharmacy has been consulted to manage selected antibiotic: Vancomycin Type of Intervention Type of Consult: New start Suspected Infection Suspected Infection: Skin/Soft tissue (WOUND INFECTION) Labs Labs: Sodium 138 mmol/L (136-145) 01/20/24 03:46 Potassium 4.0 mmol/L (3.5-5.1) 01/20/24 03:46 Chloride 108 mmol/L (98-107) H 01/20/24 03:46 Carbon Dioxide 24.0 mmol/L (21.0-32.0) 01/20/24 03:46 Anion Gap 6 (5-15) 01/20/24 03:46 BUN 19 mg/dL (7-18) H 01/20/24 03:46 Creatinine 1.01 mg/dL (0.70-1.30) 01/20/24 03:46 Est GFR (MDRD) Af Amer 103 mL/min (>60) 01/20/24 03:46 Est GFR (MDRD) Non-Af 85 mL/min (>60) 01/20/24 03:46 BUN/Creatinine Ratio 18.8 RATIO (10-20) 01/20/24 03:46 Glucose 125 mg/dL (74-106) H 01/20/24 03:46 Microbiology Microbiology: Microbiology 01/19/24 00:01 Aspirate - Abdominal Gram Stain - Final 01/19/24 00:01 Aspirate - Abdominal Wound Culture - Preliminary GPC Poss Enterococcus sp Beta streptococcus Gram negative anil GNR lactose service learning coordinator 01/18/24 20:49 Urine, Clean Catch Urine Culture - Final Culture exhibits no growth. Pharmacy Plan for Drug Dosing Pharmacy Plan for Drug Dosing: NEW START IV VANCOMYCIN Consulting Physician: JOVANI Indication: WOUND INFECTION Goal Trough: 15-20 MG/DL SrCr: 1.01 MG/DL CrCl: 112 ML/MIN Comments: initial standard dose of 1500mg given at 1627 Vancomycin Dose: Will start 1250mg Q8 and get a trough prior to 4th total dose per policy. Pending Level: 01/21/24 @ 1600 Pharmacy Service will continue to monitor and adjust dosing as required. 01/20/24 1646 <Electronically signed by Margaret Conrad> Date _ Margaret Conrad 01/20/24 1719 <Electronically signed by Ricco García MD> [facility]if applicable): Date Ricco García MD CC: ~ Signed [facility] Work Phone: 1(853) 238-655903-25-2024 Procedure [facility] 01-20-2024 Progress note Author Ni Alexander [facility] January 20, 2024 10:30am Note Date/Time January 20, 2024 9:4 8am [facility] Medical Records Department [address] [place] [address] Progress Note - Surgery 01/20/24 0947 MR#: [id number] Acct: [id number] Name: TERRIE ALLEN Rep #:[id number] : 1980 43 From: Ni RAMON PA-C PCP: Care Physician,No Primary Status :ADM IN Location: [place] [address] Subjective Subjective Patient is a 43 y/o M I am following in conjunction with Dr. García. Patient was readmitted over the weekend with increased fever and abdominal pain. Patient wasfound to have an intraabdominal abscess. Patient is s/p diag lap converted to exploratory laparotomy with washout and drain placement on 01/18. Patient tolerated the procedure well. Patient had to have his John exchanged due to "sediment/discoloration" of the tubing. Patient notes having continued abdominalspasms. He notes the Valium is working well. He states he is feeling exhausted. He continues to note night sweats. He denies nausea, vomiting at this time. He notes tolerating the ice chips. Objective Data Objective Data Vital Signs: Vital Signs Temp Pulse Resp BP Pulse Ox O2 Del Method O2 Flow Rate 97.9 F 93 20 H 136/63 H 97 Room Air 2 01/20/24 09:21 01/20/24 09:21 01/20/24 09:21 01/20/24 09:21 01/20/24 09:21 01/20/24 09:36 01/19/24 13:22 Oxygen Flow Rate (L/min) 2 Oxygen Delivery Method Room Air Weight: 221 lb 5.506 oz Body Mass Index (BMI) 27.6 Intake & Output: Intake and Output for Last 24 Hours 01/18/24 01/19/24 01/20/24 23:59 23:59 23:59 Intake Total 1050 / 1050 2174.17 / 2174.17 1033.33 / 1033.33 Output Total 935 / 935 708 / 708 Balance 1050 / 1050 1239.17 / 1239.17 325.33 / 325.33 Lab / Micro Data 01/20/24 03:46 01/20/24 03:46 Labs: Laboratory Results - last 24 hr 01/20/24 03:46: WBC 16.1 H, RBC 4.22 L, Hgb 11.7 L, Hct 36.5 L, MCV 86.5, MCH 27.7, MCHC 32.1, RDW Std Deviation 40.6, RDW Coeff of Khadijah 12.9, Plt Count 383, MPV 9.4, Immature Gran % (Auto) 1.200 H, Neut % (Auto) 75.7 H, Lymph % (Auto) 10.8 L, Butts % (Auto) 11.6 H, Eos % (Auto) 0.2, Baso % (Auto) 0.5, Absolute Neuts (auto) 12.2 H, Absolute Lymphs (auto) 1.74, Nucleated RBC % 0, Differential Comment SCANNED, Diff Path Review May foll, Sodium 138, Potassium 4.0, Chloride 108 H, Carbon Dioxide 24.0, Anion Gap 6, BUN 19 H, Creatinine 1.01, Estim Creat Clear Calc 112.71, Est GFR (MDRD) Af Amer 103, Est GFR (MDRD) Non-Af 85, BUN/Creatinine Ratio 18.8, Glucose 125 H, Calcium 7.5 L, Phosphorus 2.8, Magnesium 1.9, Total Bilirubin 0.80, Direct Bilirubin 0.33 H, AST 59 H, ALT87 H, Alkaline Phosphatase 79, Total Protein 5.3 L, Albumin 1.9 L, Globulin 3.4 Micro: Microbiology 01/18/24 20:49 Urine, Clean Catch Urine Culture - Final Culture exhibits no growth. Physical Exam GI GI Narrative: Abdomen- slightly distended, soft, hypoactive bowel sounds. Midline incision with healthy granulation tissue noted. No purulent material on the gauze. Damp to dry dressing change was completed. Wound is superficial. Remaining incisions c/d/i. No erythema noted. LUZ drain with serosanguineous bloody fluid noted. No odor is noted. Abdominal binder was reapplied. Assessment & Plan Assessment/Plan (1) Abscess, intra-abdominal, postoperative: (2) Superior mesenteric vein thrombosis: (3) Infection following a procedure, deep incisional surgical site, initial encounter: PLAN: Plan I am seeing this patient in conjunction with Dr. García. He has independently evaluated this patient. Continue to encourage ambulation and I.S Muscle spasms most likely from deep sutures. Alternate Valium, Toradol, Tylenol as needed for pain Continue to wear abdominal binder when ambulating. May leave the binder open when sitting in the chair or laying in bed. Change abdominal midline incision dressing twice daily with damp to dry gauze dressings. Continue to monitor the LUZ drainage output for change in drainage color and odor. Use Tylenol as needed for fevers Await cultures from deep abscess along with urine and blood cultures Cultures from incision returned as E. Faecalis, pseudomonas aeruginosa, B. fragilis, and actinomyces naeslundii. Continue Zosyn May use a K pad for comfort Continue cardiac monitoring for at least an additional 24 hours Labs reviewed Continue anticoagulation We will continue to closely monitor this patient Charges/Coding Visit Charges Inpatient E&M: 85527 Subs Hosp L1 (no charge) 01/20/24 1030 <Electronically signed by Ni RAMON PA-C> Cosigner Signature (if applicable): CC: ~ Signed [facility] Work Phone: 1(877) 565-199303-24-2024 Progress note Author Veronica Garner [facility] January 19, 2024 9:40am Note Date/Time January 19, 2024 8:5 7am [facility] Medical Records Department [address] [facility] [place] [address] Progress Note - Surgery 01/19/24852 MR#: [id number] Acct: [id number] Name: TERRIE ALLEN Rep #:[id number] : 1980 43 From: Veronica aGrner MD PCP: Care Physician,No Primary Status :ADM IN Location: [place] [address] Objective Data Objective Data Vital Signs: Vital Signs Temp Pulse Resp BP Pulse Ox O2 Del Method O2 Flow Rate 97.9 F 117 H 18 101/63 96 Nasal Cannula 2 01/19/24 06:46 01/19/24 06:46 01/19/24 06:46 01/19/24 06:46 01/19/24 06:46 01/19/24 06:46 01/19/24 06:46 Oxygen Flow Rate (L/min) 2 Oxygen Delivery Method Nasal Cannula Weight: 221 lb 5.506 oz Body Mass Index (BMI) 27.6 Intake & Output: Intake and Output for Last 24 Hours 01/17/24 01/18/24 01/19/24 23:59 23:59 23:59 Intake Total 1050 / 1050 151.25 / 151.25 Output Total 55 / 55 Balance 1050 / 1050 96.25 / 96.25 Lab / Micro Data 01/19/24 06:11 01/19/24 06:11 Labs: Laboratory Results - last 24 hr 01/18/24 18:40: Lipase 29 01/18/24 18:41: WBC 12.6 H, RBC 5.03, Hgb 14.0, Hct 43.2, MCV 85.9, MCH 27.8, MCHC 32.4, RDW Std Deviation 39.0, RDW Coeff of Khadijah 12.5, Plt Count 421, MPV 9.8, Immature Gran % (Auto) 1.500 H, Neut % (Auto) 82.4 H, Lymph % (Auto) 6.2 L,Butts % (Auto) 8.0, Eos % (Auto) 1.0, Baso % (Auto) 0.9, Absolute Neuts (auto) 10.4 H, Absolute Lymphs (auto) 0.78 L, Nucleated RBC % 0, PT Cancelled, INR Cancelled, APTT Cancelled, Sodium 135 L, Potassium 4.3, Chloride 104, Carbon Dioxide 23.0, Anion Gap 8, BUN 9, Creatinine 0.94, Estim Creat Clear Calc 124.40, Est GFR (MDRD) Af Amer 113, Est GFR (MDRD) Non-Af 93, BUN/Creatinine Ratio 9.6 L, Glucose 114 H, Lactic Acid 1.4, Calcium 8.9, Total Bilirubin 1.10 H, AST 92 H, ALT 124 H, Alkaline Phosphatase 121 H, Total Protein 6.9, Albumin 2.7 L, Globulin 4.2, Albumin/Globulin Ratio 0.6 L 01/18/24 20:00: PT 16.2 H, INR 1.3, APTT 37.2 H 01/18/24 20:44: Urine Color Yellow, Urine Clarity Clear, Urine pH 6.0, Ur Specific [place] 1.015, Urine Protein 15 H, Urine Glucose (UA) Normal, Urine Ketones 5 H, Urine Occult Blood Negative, Urine Nitrite Negative, Urine Bilirubin Negative, Urine Urobilinogen Normal, Ur Leukocyte Esterase Negative, Urine RBC 0SEEN, Urine WBC 0 SEEN, Ur Squamous Epith Cells 0 SEEN, Urine Bacteria 0 SEEN, Urine Mucus 0 SEEN 01/19/24 06:11: WBC 9.8, RBC 4.66, Hgb 12.7 L, Hct 40.3, MCV 86.5, MCH 27.3, MCHC 31.5 L, RDW Std Deviation 40.3, RDW Coeff of Khadijah 12.8, Plt Count 456 H, MPV9.9, Immature Gran % (Auto) 1.500 H, Neut % (Auto) 81.8 H, Lymph % (Auto) 8.2 L,Butts % (Auto) 7.4, Eos % (Auto) 0.2, Baso % (Auto) 0.9, Absolute Neuts (auto) 8.0 H, Absolute Lymphs (auto) 0.80 L, Nucleated RBC % 0, Sodium 136, Potassium 4.0, Chloride 108 H, Carbon Dioxide 22.0, Anion Gap 6, BUN 12, Creatinine 1.11, Estim Creat Clear Calc 102.56, Est GFR (MDRD) Af Amer 93, Est GFR (MDRD) Non-Af 77, BUN/Creatinine Ratio 10.8, Glucose 130 H, Calcium 8.0 L, Total Bilirubin 1.00, Direct Bilirubin 0.45 H, AST 91 H, ALT 117 H, Alkaline Phosphatase 100, Total Protein 5.8 L, Albumin 2.3 L, Globulin 3.5 Radiography Diagnostic Testing: Radiology Impression Abdomen/Pelvis CT 01/18/24 19:08 IMPRESSION: 1. Interval recent right hemicolectomy with multiple suspected areas of phlegmon/developing abscesses in the right side of the retroperitoneum at the site of resection of the ascending colon. 2. Small amount of free fluid in the pelvis. 3. 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 4. Small bilateral pleural effusions with some bibasilar atelectasis. Electronically Signed: Chidi Carvajal MD at 20:43 EDT , ADDENDUM: 01/18/24 2100 IMPRESSION: 1. Interval recent right hemicolectomy with multiple suspected areas of phlegmon/developing abscesses in the right side of the retroperitoneum at the site of resection of the ascending colon. 2. Small amount of free fluid in the pelvis. 3. 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 4. Small bilateral pleural effusions with some bibasilar atelectasis. N.B. : The above Results were Read Back by Chidi Carvajal MD to TRISTEN Moon, and understanding confirmed on 01/18/2024 20:53:10 (ET). Electronically Signed: Chidi Carvajal MD at 20:43 EDT , Chest X-Ray 01/18/24 19:25 IMPRESSION: No active disease. Electronically Signed: Chidi Carvajal MD at 19:57 EDT , Assessment & Plan Assessment/Plan (1) S/P exploratory laparotomy: PLAN: POD 0 ex lap and washout of abd abscess, LUZ placement (2) Abscess, intra-abdominal, postoperative: (3) Superior mesenteric vein thrombosis: PLAN: Plan -Will keep n.p.o. with IV fluids until bowel function -Urinary retention will place John -Pain control?Dilaudid also try Valium for muscle spasms -LUZ sanguinous but clearing up, will continue to monitor -Continue IV Zosyn, wound care wet-to-dry starting tonight for midline wound -Will plan to start heparin 5000 units 3 times daily later today no issues with that we will be able to move on to more therapeutic options for the superior mesenteric vein thrombosis. -LFTs improving we will continue to monitor Veronica Garner M.D. Pager: [phone] [facility] [address] [place] [address], [facility], [address] [place] [address] Office: [phone] 01/19/24 1373 <Electronically signed by Veronica Garner MD> Cosigner Signature (if applicable): CC: ~ Signed [facility] Work Phone: 1(552) 282-381403-23-2024 Discharge summary Author Nader Miller [facility] January 18, 2024 9:56pm Note Date/Time January 18, 2024 6:4 5pm [facility] Medical Records Department [address] [place] [address] Emergency Department Summary 01/18/24 MR#: [id number] Acct: [id number] Name: TERRIE ALLEN Rep #:[id number] : 1980 43 From: Дмитрий RAMON PCP: Care Physician,No Primary Status :ADM IN Location: [place] CL543-8 HPI <TRISTEN Moon - Last Filed: 01/18/24 21:32> History of Present Illness Chief Complaint: Wound Narrative Narrative: 45-year-old male had ileocecal intussusception with laparoscopic right hemicolectomy by Dr. García on 01/11/2024. He went home on 01/16/24 on Augmentin. He states the abdominal incision culture results came back and they also added levofloxacin. Postop they left a small open wound on the upper abdomen covered with Steri-Strips and he has been changing the bandage once a day and today had yellow purulent drainage on the area. His abdominal pain was manageable with Tylenol but today he developed increased pain and a fever of 101F, chills, and fatigue. He has also been having frequent loose bowel movements. He states he went 11 times yesterday and 4 times today. Denies melena or hematochezia. [facility] <TRISTEN Moon - Last Filed: 01/18/24 21:32> [facility] Medical History (Updated 01/18/24 @ 20:58 by TRISTEN Moon) Collar bone fracture Home Medications acetaminophen 500 mg tablet 500 mg PO Q6H PRN PRN Pain 1-10 Or Fever #0 tabs 01/16/24 [Rx Last Taken Unknown] amoxicillin 875 mg-potassium clavulanate 125 mg tablet 1 tab PO BID atb 9 days #18 tabs 01/16/24 [Rx Last Taken Unknown] celecoxib 200 mg capsule 200 mg PO DAILY see 7 days #7 caps 01/16/24 [Rx Last Taken Unknown] oxycodone 5 mg tablet 5 mg PO Q6H PRN PRN Pain Score 4-10 2 days #6 tabs 01/16/24 [Rx Last Taken Unknown] levofloxacin 750 mg tablet 750 mg PO DAILY atb #14 tabs 01/17/24 [Rx Last Taken Unknown] Allergy/AdvReac Type Severity Reaction Status Date / Time No Known Allergies Allergy Verified 01/18/24 17:41 Surgical History H/O hernia repair Social History Smoking Status: Never smoker ROS <TRISTEN Moon - Last Filed: 01/18/24 21:32> ROS ED ROS Narrative Constitutional: Positive for fever, chills, malaise. GI: Positive for abdominal pain, nausea, diarrhea. Negative for vomiting. : Negative for dysuria, hematuria or frequency. EXAM <TRISTEN Moon - Last Filed: 01/18/24 21:32> Physical Exam Narrative Exam Narrative: CONST: Patient appears ill and has chills. EYES: Normal inspection. NECK: Normal inspection. RESP: No respiratory distress, CTAB. CVS: Regular rate and rhythm, no murmur, no gallop. ABD: Soft with diffuse tenderness and voluntary guarding. Small upper abdominalmidline incision has yellow purulent drainage. Steri-Strips intact. EXTREMITIES: Normal appearance, no pedal edema. NEURO: Alert and answering questions appropriately. PSYCH: Normal affect. Const Vital Signs: 01/18/24 17:34 01/18/24 18:33 01/18/24 19:00 Temperature 98.7 F 98.8 F Temperature Source Temporal Oral Pulse Rate 93 90 90 Respiratory Rate 18 28 H 18 Blood Pressure 109/66 153/79 H 125/70 H Blood Pressure Mean 80 103 88 Pulse Ox 100 98 98 Oxygen Delivery Method Room Air Room Air Room Air 01/18/24 19:01 01/18/24 18:42 01/18/24 18:40 Temperature 98.7 F Temperature Source Temporal Pulse Rate 87 88 Respiratory Rate 20 H 25 H Blood Pressure 125/70 H 125/70 H Blood Pressure Mean 88 88 Pulse Ox 100 98 Oxygen Delivery Method Room Air Room Air Room Air 01/18/24 19:57 01/18/24 20:44 01/18/24 20:44 Temperature 100.4 F H 100.4 F H 100.4 F H Temperature Source Oral Oral Oral Pulse Rate 92 110 H 110 H Respiratory Rate 26 H 19 H 19 H Blood Pressure 125/72 H 127/78 H 127/78 H Blood Pressure Mean 89 94 94 Pulse Ox 95 97 97 Oxygen Delivery Method Room Air Room Air Room Air <Dr. Nader Miller MD - Last Filed: 01/18/24 21:56> Physical Exam Const Vital Signs: 01/18/24 17:34 01/18/24 18:33 01/18/24 19:00 Temperature 98.7 F 98.8 F Temperature Source Temporal Oral Pulse Rate 93 90 90 Respiratory Rate 18 28 H 18 Blood Pressure 109/66 153/79 H 125/70 H Blood Pressure Mean 80 103 88 Pulse Ox 100 98 98 Oxygen Delivery Method Room Air Room Air Room Air 01/18/24 19:01 01/18/24 18:42 01/18/24 18:40 Temperature 98.7 F Temperature Source Temporal Pulse Rate 87 88 Respiratory Rate 20 H 25 H Blood Pressure 125/70 H 125/70 H Blood Pressure Mean 88 88 Pulse Ox 100 98 Oxygen Delivery Method Room Air Room Air Room Air 01/18/24 19:57 01/18/24 20:44 01/18/24 20:44 Temperature 100.4 F H 100.4 F H 100.4 F H Temperature Source Oral Oral Oral Pulse Rate 92 110 H 110 H Respiratory Rate 26 H 19 H 19 H Blood Pressure 125/72 H 127/78 H 127/78 H Blood Pressure Mean 89 94 94 Pulse Ox 95 97 97 Oxygen Delivery Method Room Air Room Air Room Air [facility] <TRISTEN Moon - Last Filed: 01/18/24 21:32> [facility] Narrative Medical decision making narrative: History gathered from: Patient and spouse Consults: General surgery Differential: Intra-abdominal abscess, pneumonia, UTI Patient is 1 week postop from laparoscopic right hemicolectomy for ileocecal intussusception. Today he developed a fever, chills, increased abdominal pain and purulent drainage from the open abdominal incision site. He has rigors on exam. He is afebrile with normal vital signs. He took Tylenol prior to arrival. Heart is regular and lungs are clear. Abdomen is significantly tenderbut not peritoneal. There is purulent drainage noted on the upper abdominal Steri-Strips. Sepsis workup was initiated with labs, blood cultures, and IV Zosyn ordered. WBC is 12.6, lactate 1.4. Normal electrolytes and renal function. There is mild elevation of LFTs with normal lipase. CT shows multiple suspected areas of phlegmon/developing abscess in the right side of the abdomen at the site of resection. 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 I consulted Dr. Garner who plans to take the patient to the OR and admit. External records reviewed: Surgical site incision culture on 01/18/2024 shows Enterococcus faecalis and Pseudomonas aeruginosa I have personally performed a face to face assessment of the patient and have reviewed the MIAH Note. I performed a substantive portion of the visit including all aspects of the following. My spears findings include: History is history of intussusception. Patient was discharged on . There is an area that was left open. was to change the dressing daily. She states this morning the color of the drainage was different. Appears purulent. He had shaking chills at home and fever. He reports not feeling well. Does feel nauseous. Does complain of increased abdominal pain as well. Exam is patient appears ill. His vital signs are unremarkable, however. He does appear flushed. HEENT exam is remarkable dry mucosa. Heart is regular. Rate is normal. No murmur, gallop or rub. Lungs reveal symmetric breath soundswith no abnormal breath sounds. Abdomen is firm with significant tenderness there is purulent drainage noted. There is slight erythema along the incision region. He has guarding. There is tympany to percussion question of percussiontenderness. Bowel sounds are diminished. He is alert oriented x 3. Medical Decision Making concern patient has postop infection with documented fever at home with chills. CT of the abdomen was obtained. Appropriate workup was undertaken which included blood work and blood cultures prior to administration of Zosyn. Will obtain CT of the abdomen to determine if there isan intra-abdominal abscess to explain the drainage and significant tenderness. Case will be discussed with surgeon on-call who assisted Dr. García. Other additions or changes: [None] Lab Data Labs: Laboratory Results - last 24 hr 01/18/24 01/18/24 01/18/24 18:40 18:41 20:00 WBC 12.6 H RBC 5.03 Hgb 14.0 Hct 43.2 MCV 85.9 MCH 27.8 MCHC 32.4 RDW Std Deviation 39.0 RDW Coeff of Khadijah 12.5 Plt Count 421 MPV 9.8 Immature Gran % (Auto) 1.500 H Neut % (Auto) 82.4 H Lymph % (Auto) 6.2 L Butts % (Auto) 8.0 Eos % (Auto) 1.0 Baso % (Auto) 0.9 Absolute Neuts (auto) 10.4 H Absolute Lymphs (auto) 0.78 L Nucleated RBC % 0 PT Cancelled 16.2 H INR Cancelled 1.3 APTT Cancelled 37.2 H Sodium 135 L Potassium 4.3 Chloride 104 Carbon Dioxide 23.0 Anion Gap 8 BUN 9 Creatinine 0.94 Estim Creat Clear Calc 124.40 Est GFR (MDRD) Af Amer 113 Est GFR (MDRD) Non-Af 93 BUN/Creatinine Ratio 9.6 L Glucose 114 H Lactic Acid 1.4 Calcium 8.9 Total Bilirubin 1.10 H AST 92 H ALT 124 H Alkaline Phosphatase 121 H Total Protein 6.9 Albumin 2.7 L Globulin 4.2 Albumin/Globulin Ratio 0.6 L Lipase 29 Urine Color Urine Clarity Urine pH Ur Specific [place] Urine Protein Urine Glucose (UA) Urine Ketones Urine Occult Blood Urine Nitrite Urine Bilirubin Urine Urobilinogen Ur Leukocyte Esterase Urine RBC Urine WBC Ur Squamous Epith Cells Urine Bacteria Urine Mucus 01/18/24 20:44 WBC RBC Hgb Hct MCV MCH MCHC RDW Std Deviation RDW Coeff of Khadijah Plt Count MPV Immature Gran % (Auto) Neut % (Auto) Lymph % (Auto) Butts % (Auto) Eos % (Auto) Baso % (Auto) Absolute Neuts (auto) Absolute Lymphs (auto) Nucleated RBC % PT INR APTT Sodium Potassium Chloride Carbon Dioxide Anion Gap BUN Creatinine Estim Creat Clear Calc Est GFR (MDRD) Af Amer Est GFR (MDRD) Non-Af BUN/Creatinine Ratio Glucose Lactic Acid Calcium Total Bilirubin AST ALT Alkaline Phosphatase Total Protein Albumin Globulin Albumin/Globulin Ratio Lipase Urine Color Yellow Urine Clarity Clear Urine pH 6.0 Ur Specific [place] 1.015 Urine Protein 15 H Urine Glucose (UA) Normal Urine Ketones 5 H Urine Occult Blood Negative Urine Nitrite Negative Urine Bilirubin Negative Urine Urobilinogen Normal Ur Leukocyte Esterase Negative Urine RBC 0 SEEN Urine WBC 0 SEEN Ur Squamous Epith Cells 0 SEEN Urine Bacteria 0 SEEN Urine Mucus 0 SEEN Radiography Diagnostic Testing: Clinical Impression(s) from Imaging Studies Abdomen/Pelvis CT 01/18/24 19:08 IMPRESSION: 1. Interval recent right hemicolectomy with multiple suspected areas of phlegmon/developing abscesses in the right side of the retroperitoneum at the site of resection of the ascending colon. 2. Small amount of free fluid in the pelvis. 3. 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 4. Small bilateral pleural effusions with some bibasilar atelectasis. Electronically Signed: Chidi Carvajal MD at 20:43 EDT Reading Location ID and State: [id number] / [facility] Tel , Service support , ADDENDUM: 01/18/24 2100 IMPRESSION: 1. Interval recent right hemicolectomy with multiple suspected areas of phlegmon/developing abscesses in the right side of the retroperitoneum at the site of resection of the ascending colon. 2. Small amount of free fluid in the pelvis. 3. 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 4. Small bilateral pleural effusions with some bibasilar atelectasis. N.B. : The above Results were Read Back by Chidi Carvajal MD to TRISTEN Moon, and understanding confirmed on 01/18/2024 20:53:10 (ET). Electronically Signed: Chidi Carvajal MD at 20:43 EDT Reading Location ID and State: [id number] / [facility] Tel , Service support , Chest X-Ray 01/18/24 19:25 IMPRESSION: No active disease. Electronically Signed: Chidi Carvajal MD at 19:57 EDT Reading Location ID and State: [id number] / [facility] Tel , Service support , <Dr. 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 Today he developed a fever, chills, increased abdominal pain and purulent drainage from the open abdominal incision site. He has rigors on exam. He is afebrile with normal vital signs. He took Tylenol prior to arrival. Heart is regular and lungs are clear. Abdomen is significantly tender but not peritoneal. There is purulent drainage noted on the upper abdominal Steri-Strips. Sepsis workup was initiated with labs, blood cultures, and IV Zosyn ordered. WBC is 12.6, lactate 1.4. Normal electrolytes and renal function. There is mild elevation of LFTs with normal lipase. CT shows multiple suspected areas of phlegmon/developing abscess in the right side of the abdomen at the site of resection. 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 I consulted Dr. Garner who plans to take the patient to the OR and admit. External records reviewed: Surgical site incision culture on 01/18/2024 shows Enterococcus faecalis and Pseudomonas aeruginosa I have personally performed a face to face assessment of the patient and have reviewed the MIAH Note. I performed a substantive portion of the visit including all aspects of the following. My spears findings include: History is history of intussusception. Patient was discharged on . There is an area that was left open. was to change the dressing daily. She states this morning the color of the drainage was different. Appears purulent. He had shaking chills at home and fever. He reports not feeling well. Does feel nauseous. Does complain of increased abdominal pain as well. Exam is patient appears ill. His vital signs are unremarkable, however. He does appear flushed. HEENT exam is remarkable dry mucosa. Heart is regular. Rate is normal. No murmur, gallop or rub. Lungs reveal symmetric breath sounds with no abnormal breath sounds. Abdomen is firm with significant tenderness there is purulent drainage noted. There is slight erythema along the incision region. He has guarding. There is tympany to percussion question of percussion tenderness. Bowel sounds are diminished. He is alert oriented x 3. Medical Decision Making concern patient has postop infection with documented fever at home with chills. CT of the abdomen was obtained. Appropriate workup was undertaken which included blood work and blood cultures prior to administration of Zosyn. Will obtain CT of the abdomen to determine if there is an intra-abdominal abscess to explain the drainage and significant tenderness. Case will be discussed with surgeon on-call who assisted Dr. García. Other additions or changes: Plan is OR. Dr. Gonzales was made aware of the thrombus in the superior mesenteric vein that was noted by radiologist. Lab Data Labs: Laboratory Results - last 24 hr 03/23/24 03/23/24 03/23/24 18:40 18:41 20:00 WBC 12.6 H RBC 5.03 Hgb 14.0 Hct 43.2 MCV 85.9 MCH 27.8 MCHC 32.4 RDW Std Deviation 39.0 RDW Coeff of Khadijah 12.5 Plt Count 421 MPV 9.8 Immature Gran % (Auto) 1.500 H Neut % (Auto) 82.4 H Lymph % (Auto) 6.2 L Butts % (Auto) 8.0 Eos % (Auto) 1.0 Baso % (Auto) 0.9 Absolute Neuts (auto) 10.4 H Absolute Lymphs (auto) 0.78 L Nucleated RBC % 0 PT Cancelled 16.2 H INR Cancelled 1.3 APTT Cancelled 37.2 H Sodium 135 L Potassium 4.3 Chloride 104 Carbon Dioxide 23.0 Anion Gap 8 BUN 9 Creatinine 0.94 Estim Creat Clear Calc 124.40 Est GFR (MDRD) Af Amer 113 Est GFR (MDRD) Non-Af 93 BUN/Creatinine Ratio 9.6 L Glucose 114 H Lactic Acid 1.4 Calcium 8.9 Total Bilirubin 1.10 H AST 92 H ALT 124 H Alkaline Phosphatase 121 H Total Protein 6.9 Albumin 2.7 L Globulin 4.2 Albumin/Globulin Ratio 0.6 L Lipase 29 Urine Color Urine Clarity Urine pH Ur Specific [place] Urine Protein Urine Glucose (UA) Urine Ketones Urine Occult Blood Urine Nitrite Urine Bilirubin Urine Urobilinogen Ur Leukocyte Esterase Urine RBC Urine WBC Ur Squamous Epith Cells Urine Bacteria Urine Mucus 01/18/24 20:44 WBC RBC Hgb Hct MCV MCH MCHC RDW Std Deviation RDW Coeff of Khadijah Plt Count MPV Immature Gran % (Auto) Neut % (Auto) Lymph % (Auto) Butts % (Auto) Eos % (Auto) Baso % (Auto) Absolute Neuts (auto) Absolute Lymphs (auto) Nucleated RBC % PT INR APTT Sodium Potassium Chloride Carbon Dioxide Anion Gap BUN Creatinine Estim Creat Clear Calc Est GFR (MDRD) Af Amer Est GFR (MDRD) Non-Af BUN/Creatinine Ratio Glucose Lactic Acid Calcium Total Bilirubin AST ALT Alkaline Phosphatase Total Protein Albumin Globulin Albumin/Globulin Ratio Lipase Urine Color Yellow Urine Clarity Clear Urine pH 6.0 Ur Specific [place] 1.015 Urine Protein 15 H Urine Glucose (UA) Normal Urine Ketones 5 H Urine Occult Blood Negative Urine Nitrite Negative Urine Bilirubin Negative Urine Urobilinogen Normal Ur Leukocyte Esterase Negative Urine RBC 0 SEEN Urine WBC 0 SEEN Ur Squamous Epith Cells 0 SEEN Urine Bacteria 0 SEEN Urine Mucus 0 SEEN Radiography Diagnostic Testing: Clinical Impression(s) from Imaging Studies Abdomen/Pelvis CT 01/18/24 19:08 IMPRESSION: 1. Interval recent right hemicolectomy with multiple suspected areas of phlegmon/developing abscesses in the right side of the retroperitoneum at the site of resection of the ascending colon. 2. Small amount of free fluid in the pelvis. 3. 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 4. Small bilateral pleural effusions with some bibasilar atelectasis. Electronically Signed: Chidi Carvajal MD at 20:43 EDT Reading Location ID and State: [employer] / [facility] Tel , Service support , ADDENDUM: 01/18/24 2100 IMPRESSION: 1. Interval recent right hemicolectomy with multiple suspected areas of phlegmon/developing abscesses in the right side of the retroperitoneum at the site of resection of the ascending colon. 2. Small amount of free fluid in the pelvis. 3. 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 4. Small bilateral pleural effusions with some bibasilar atelectasis. N.B. : The above Results were Read Back by Chidi Carvajal MD to TRISTEN Moon, and understanding confirmed on 01/18/2024 20:53:10 (ET). Electronically Signed: Chidi Carvajal MD at 20:43 EDT Reading Location ID and State: [id number] / [facility] Tel , Service support , Chest X-Ray 01/18/24 19:25 IMPRESSION: No active disease. Electronically Signed: Chidi Carvajal MD at 19:57 EDT Reading Location ID and State: [employer] / [facility] Tel , Service support , Discharge Plan Dx/Rx/DC Orders Clinical Impression: Abscess, intra-abdominal, postoperative, Sepsis without acute organ dysfunction, Superior mesenteric vein thrombosis Disposition Disposition: Acute Care Hospital [facility] What to do if you have Problems For any increased pain, shortness of breath, bleeding, nausea or vomiting, chest pain, or any unexpected problems, contact your Primary Care Provider. Call [facility] ([phone]) or report to the closest Emergency Room. Call 911 if necessary. 01/18/242131 <Electronically signed by Дмитрий RAMON> Cosigner Signature (if applicable): 01/18/242155 <Electronically signed by Nader Miller MD> CC: No Primary Care Physician ~ Signed [facility] Work Phone: 1(447) 549-763203-23-2024 History and physical note Author Veronica Garner [facility] January 18, 2024 9:16pm Note Date/Time January 18, 2024 8:4 7pm [facility] Medical Records Department [address] [place] [id number] H&P Exam - Surgical 01/18/242037 MR#: [id number] Acct: [id number] Name: TERRIE ALLEN Rep #:[id number] : 1980 43 From: Veronica Garner MD PCP: Care Physician,No Primary Status :ADM IN Location: [facility] [id number] HPI - General General Date of Admission: 01/18/24 HPI Narrative TERRIE ALLEN, is a 43 M who presents to the ER due to fever of 101.5 at home. Patient status post right hemicolectomy due to ileocolic intussusception due to inflammatory polyp per pathology by Dr. García a week ago. Patient did have a wound infection after surgery and was on antibiotics. Patient's and his states that his drainage was previously like a clear orange color but this morning it was more purulent. Patient was also not feeling as well and having more abdominal pain which she was not really having and was controlled with Tylenol previously. Patient CT abdomen pelvis which is not currently red but shows an abscess near the anastomosis, fluid in the pelvis. Patient's temperature in the ER was 100.4, leukocytosis of 12, elevated LFTs?unsure etiology. Patient was given Zosyn in the ER. Patient did have diarrhea yesterday by 11 times did have enteric pathogens checked at that time which werenegative. Patient states she only had diarrhea or loose stools 4 times today. Patient states he last ate at noon and really did not feel much like eating today. [facility] Medical History (Updated 01/18/24 @ 20:[address] Veronica Garner MD) Collar bone fracture Home Medications acetaminophen 500 mg tablet 500 mg PO Q6H PRN PRN Pain 1-10 Or Fever #0 tabs 01/16/24 [Rx Last Taken Unknown] amoxicillin 875 mg-potassium clavulanate 125 mg tablet 1 tab PO BID 9 days #18 tabs 01/16/24 [Rx Last Taken Unknown] celecoxib 200 mg capsule 200 mg PO DAILY 7 days #7 caps 01/16/24 [Rx Last Taken Unknown] oxycodone 5 mg tablet 5 mg PO Q6H PRN PRN Pain Score 4-10 2 days #6 tabs 01/16/24 [Rx Last Taken Unknown] levofloxacin 750 mg tablet 750 mg PO DAILY #14 tabs 01/17/24 [Rx Last Taken Unknown] Allergy/AdvReac Type Severity Reaction Status Date / Time No Known Allergies Allergy Verified 01/18/24 17:41 Surgical History H/O hernia repair Social History Smoking Status: Never smoker Vital Signs Vital Signs Vital Signs: 01/18/24 17:34 01/18/24 18:33 01/18/24 19:00 Temperature 98.7 F 98.8 F Temperature Source Temporal Oral Pulse Rate 93 90 90 Respiratory Rate 18 28 H 18 Blood Pressure 109/66 153/79 H 125/70 H Blood Pressure Mean 80 103 88 Pulse Ox 100 98 98 Oxygen Delivery Method Room Air Room Air Room Air 01/18/24 19:01 01/18/24 18:42 01/18/24 18:40 Temperature 98.7 F Temperature Source Temporal Pulse Rate 87 88 Respiratory Rate 20 H 25 H Blood Pressure 125/70 H 125/70 H Blood Pressure Mean 88 88 Pulse Ox 100 98 Oxygen Delivery Method Room Air Room Air Room Air 01/18/24 19:57 Temperature 100.4 F H Temperature Source Oral Pulse Rate 92 Respiratory Rate 26 H Blood Pressure 125/72 H Blood Pressure Mean 89 Pulse Ox 95 Oxygen Delivery Method Room Air Weight Weight: 223 lb 15.834 oz Body Mass Index (BMI) 27.2 Physical Exam Const oriented x3 General Appearance: ill appearing Resp normal respiratory effort Cardio regular rate GI GI Narrative: Soft, tender midline, midline incision with purulent drainage, no peritoneal signs, nondistended Results Lab / Micro Data 01/18/24 18:41 01/18/24 18:41 Labs: Laboratory Results - last 24 hr 01/18/24 18:40: Lipase 29 01/18/24 18:41: WBC 12.6 H, RBC 5.03, Hgb 14.0, Hct 43.2, MCV 85.9, MCH 27.8, MCHC 32.4, RDW Std Deviation 39.0, RDW Coeff of Khadijah 12.5, Plt Count 421, MPV 9.8, Immature Gran % (Auto) 1.500 H, Neut % (Auto) 82.4 H, Lymph % (Auto) 6.2 L,Butts % (Auto) 8.0, Eos % (Auto) 1.0, Baso % (Auto) 0.9, Absolute Neuts (auto) 10.4 H, Absolute Lymphs (auto) 0.78 L, Nucleated RBC % 0, PT Cancelled, INR Cancelled, APTT Cancelled, Sodium 135 L, Potassium 4.3, Chloride 104, Carbon Dioxide 23.0, Anion Gap 8, BUN 9, Creatinine 0.94, Estim Creat Clear Calc 124.40, Est GFR (MDRD) Af Amer 113, Est GFR (MDRD) Non-Af 93, BUN/Creatinine Ratio 9.6 L, Glucose 114 H, Lactic Acid 1.4, Calcium 8.9, Total Bilirubin 1.10 H, AST 92 H, ALT 124 H, Alkaline Phosphatase 121 H, Total Protein 6.9, Albumin 2.7 L, Globulin 4.2, Albumin/Globulin Ratio 0.6 L 01/18/24 20:00: PT 16.2 H, INR 1.3, APTT 37.2 H Imaging Radiology Impression Chest X-Ray 01/18/24 19:25 IMPRESSION: No active disease. Electronically Signed: Chidi Carvajal MD at 19:57 EDT , Assessment & Plan Assessment/Plan (1) Abscess, intra-abdominal, postoperative: PLAN: Plan Did discuss with Dr. García as well. Planning to do an exploratory laparoscopy, possible laparotomy, possible bowel resection discussed procedure with the patient and his including risk not limited to bleeding, infection, placement of drain/leaving the midline wound skin open after the surgery, revision of anastomosis, and anesthesia. Patient and his had no further questions this time. Veronica Garner M.D. Pager: [phone] [facility] [address] [place] [address], [address] [place] [address] Office: [phone] 01/18/242045 <Electronically signed by Veronica Garner MD> Cosigner Signature (if applicable): CC: Dr. Veronica Garner MD; No Primary Care Physician~ Signed ADDENDUM by Dr. Veronica Garner MD on 01/18/24 at [address] read did also show partial thrombus of the superior mesenteric vein. Discussed this with patient and his discussed treatment would be anticoagulation after surgery. 01/18/242114<Electronically signed by Veronica Garner MD> Cosigner Signature (if applicable): cc: Dr. Veronica Garner MD; No Primary Care Physician ~* Signed [facility] Work Phone: [phone]) 580-831903-23-2024 History and physical note Author Veronica Garner [facility] January 18, 2024 9:16pm Note Date/Time January 18, 2024 8:4 7pm [facility] Medical Records Department [address] [place] [id number] H&P Exam - Surgical 01/18/242037 MR#: [id number] Acct: [id number] Name: TERRIE ALLEN Rep #:[id number] : 1980 43 From: Veronica Garner MD PCP: Care Physician,No Primary Status :ADM IN Location: [facility] [id number] HPI - General General Date of Admission: 01/18/24 HPI Narrative TERRIE ALLEN, is a 43 M who presents to the ER due to fever of 101.5 at home. Patient status post right hemicolectomy due to ileocolic intussusception due to inflammatory polyp per pathology by Dr. García a week ago. Patient did have a wound infection after surgery and was on antibiotics. Patient's and his states that his drainage was previously like a clear orange color but this morning it was more purulent. Patient was also not feeling as well and having more abdominal pain which she was not really having and was controlled with Tylenol previously. Patient CT abdomen pelvis which is not currently red but shows an abscess near the anastomosis, fluid in the pelvis. Patient's temperature in the ER was 100.4, leukocytosis of 12, elevated LFTs?unsure etiology. Patient was given Zosyn in the ER. Patient did have diarrhea yesterday by 11 times did have enteric pathogens checked at that time which werenegative. Patient states she only had diarrhea or loose stools 4 times today. Patient states he last ate at noon and really did not feel much like eating today. [facility] Medical History (Updated 01/18/24 @ 20:[address] Veronica Garner MD) Collar bone fracture Home Medications acetaminophen 500 mg tablet 500 mg PO Q6H PRN PRN Pain 1-10 Or Fever #0 tabs 01/16/24 [Rx Last Taken Unknown] amoxicillin 875 mg-potassium clavulanate 125 mg tablet 1 tab PO BID 9 days #18 tabs 01/16/24 [Rx Last Taken Unknown] celecoxib 200 mg capsule 200 mg PO DAILY 7 days #7 caps 01/16/24 [Rx Last Taken Unknown] oxycodone 5 mg tablet 5 mg PO Q6H PRN PRN Pain Score 4-10 2 days #6 tabs 01/16/24 [Rx Last Taken Unknown] levofloxacin 750 mg tablet 750 mg PO DAILY #14 tabs 01/17/24 [Rx Last Taken Unknown] Allergy/AdvReac Type Severity Reaction Status Date / Time No Known Allergies Allergy Verified 01/18/24 17:41 Surgical History H/O hernia repair Social History Smoking Status: Never smoker Vital Signs Vital Signs Vital Signs: 01/18/24 17:34 01/18/24 18:33 01/18/24 19:00 Temperature 98.7 F 98.8 F Temperature Source Temporal Oral Pulse Rate 93 90 90 Respiratory Rate 18 28 H 18 Blood Pressure 109/66 153/79 H 125/70 H Blood Pressure Mean 80 103 88 Pulse Ox 100 98 98 Oxygen Delivery Method Room Air Room Air Room Air 01/18/24 19:01 01/18/24 18:42 01/18/24 18:40 Temperature 98.7 F Temperature Source Temporal Pulse Rate 87 88 Respiratory Rate 20 H 25 H Blood Pressure 125/70 H 125/70 H Blood Pressure Mean 88 88 Pulse Ox 100 98 Oxygen Delivery Method Room Air Room Air Room Air 01/18/24 19:57 Temperature 100.4 F H Temperature Source Oral Pulse Rate 92 Respiratory Rate 26 H Blood Pressure 125/72 H Blood Pressure Mean 89 Pulse Ox 95 Oxygen Delivery Method Room Air Weight Weight: 223 lb 15.834 oz Body Mass Index (BMI) 27.2 Physical Exam Const oriented x3 General Appearance: ill appearing Resp normal respiratory effort Cardio regular rate GI GI Narrative: Soft, tender midline, midline incision with purulent drainage, no peritoneal signs, nondistended Results Lab / Micro Data 01/18/24 18:41 01/18/24 18:41 Labs: Laboratory Results - last 24 hr 01/18/24 18:40: Lipase 29 01/18/24 18:41: WBC 12.6 H, RBC 5.03, Hgb 14.0, Hct 43.2, MCV 85.9, MCH 27.8, MCHC 32.4, RDW Std Deviation 39.0, RDW Coeff of Khadijah 12.5, Plt Count 421, MPV 9.8, Immature Gran % (Auto) 1.500 H, Neut % (Auto) 82.4 H, Lymph % (Auto) 6.2 L,Butts % (Auto) 8.0, Eos % (Auto) 1.0, Baso % (Auto) 0.9, Absolute Neuts (auto) 10.4 H, Absolute Lymphs (auto) 0.78 L, Nucleated RBC % 0, PT Cancelled, INR Cancelled, APTT Cancelled, Sodium 135 L, Potassium 4.3, Chloride 104, Carbon Dioxide 23.0, Anion Gap 8, BUN 9, Creatinine 0.94, Estim Creat Clear Calc 124.40, Est GFR (MDRD) Af Amer 113, Est GFR (MDRD) Non-Af 93, BUN/Creatinine Ratio 9.6 L, Glucose 114 H, Lactic Acid 1.4, Calcium 8.9, Total Bilirubin 1.10 H, AST 92 H, ALT 124 H, Alkaline Phosphatase 121 H, Total Protein 6.9, Albumin 2.7 L, Globulin 4.2, Albumin/Globulin Ratio 0.6 L 01/18/24 20:00: PT 16.2 H, INR 1.3, APTT 37.2 H Imaging Radiology Impression Chest X-Ray 01/18/24 19:25 IMPRESSION: No active disease. Electronically Signed: Chidi Carvajal MD at 19:57 EDT , Assessment & Plan Assessment/Plan (1) Abscess, intra-abdominal, postoperative: PLAN: Plan Did discuss with Dr. García as well. Planning to do an exploratory laparoscopy, possible laparotomy, possible bowel resection discussed procedure with the patient and his including risk not limited to bleeding, infection, placement of drain/leaving the midline wound skin open after the surgery, revision of anastomosis, and anesthesia. Patient and his had no further questions this time. Veronica Garner M.D. Pager: [phone] [facility] [address] [place] [address], [facility], [address] [place] [address] Office: [phone] 01/18/242045 <Electronically signed by Veronica Garner MD> Cosigner Signature (if applicable): CC: Dr. Veronica Garner MD; No Primary Care Physician~ Signed ADDENDUM by Dr. Veronica Garner MD on 01/18/24 at [address] read did also show partial thrombus of the superior mesenteric vein. Discussed this with patient and his discussed treatment would be anticoagulation after surgery. 01/18/242114<Electronically signed by Veronica Garner MD> Cosigner Signature (if applicable): cc: Dr. Veronica Garner MD; No Primary Care Physician ~* Signed [facility] Work Phone: [phone] 600-141603-23-2024 Discharge summary Author Nader Miller [facility] January 18, 2024 9:56pm Note Date/Time January 18, 2024 6:4 5pm [facility] Medical Records Department [address] [place] [address] Emergency Department Summary 01/18/24 MR#: [id number] Acct: [id number] Name: TERRIE ALLEN Rep #:[id number] : 1980 43 From: Дмитрий RAMON PCP: Care Physician,No Primary Status :ADM IN Location: [facility] [id number] HPI <TRISTEN Moon - Last Filed: 01/18/24 21:32> History of Present Illness Chief Complaint: Wound Narrative Narrative: 45-year-old male had ileocecal intussusception with laparoscopic right hemicolectomy by Dr. García on 01/11/2024. He went home on 01/16/24 on Augmentin. He states the abdominal incision culture results came back and they also added levofloxacin. Postop they left a small open wound on the upper abdomen covered with Steri-Strips and he has been changing the bandage once a day and today had yellow purulent drainage on the area. His abdominal pain was manageable with Tylenol but today he developed increased pain and a fever of 101F, chills, and fatigue. He has also been having frequent loose bowel movements. He states he went 11 times yesterday and 4 times today. Denies melena or hematochezia. [facility] <TRISTEN Moon - Last Filed: 01/18/24 21:32> [facility] Medical History (Updated 01/18/24 @ 20:58 by TRISTEN Moon) Collar bone fracture Home Medications acetaminophen 500 mg tablet 500 mg PO Q6H PRN PRN Pain 1-10 Or Fever #0 tabs 01/16/24 [Rx Last Taken Unknown] amoxicillin 875 mg-potassium clavulanate 125 mg tablet 1 tab PO BID atb 9 days #18 tabs 01/16/24 [Rx Last Taken Unknown] celecoxib 200 mg capsule 200 mg PO DAILY see 7 days #7 caps 01/16/24 [Rx Last Taken Unknown] oxycodone 5 mg tablet 5 mg PO Q6H PRN PRN Pain Score 4-10 2 days #6 tabs 01/16/24 [Rx Last Taken Unknown] levofloxacin 750 mg tablet 750 mg PO DAILY atb #14 tabs 01/17/24 [Rx Last Taken Unknown] Allergy/AdvReac Type Severity Reaction Status Date / Time No Known Allergies Allergy Verified 01/18/24 17:41 Surgical History H/O hernia repair Social History Smoking Status: Never smoker ROS <TRISTEN Moon - Last Filed: 01/18/24 21:32> ROS ED ROS Narrative Constitutional: Positive for fever, chills, malaise. GI: Positive for abdominal pain, nausea, diarrhea. Negative for vomiting. : Negative for dysuria, hematuria or frequency. EXAM <TRISTEN Moon - Last Filed: 01/18/24 21:32> Physical Exam Narrative Exam Narrative: CONST: Patient appears ill and has chills. EYES: Normal inspection. NECK: Normal inspection. RESP: No respiratory distress, CTAB. CVS: Regular rate and rhythm, no murmur, no gallop. ABD: Soft with diffuse tenderness and voluntary guarding. Small upper abdominalmidline incision has yellow purulent drainage. Steri-Strips intact. EXTREMITIES: Normal appearance, no pedal edema. NEURO: Alert and answering questions appropriately. PSYCH: Normal affect. Const Vital Signs: 01/18/24 17:34 01/18/24 18:33 01/18/24 19:00 Temperature 98.7 F 98.8 F Temperature Source Temporal Oral Pulse Rate 93 90 90 Respiratory Rate 18 28 H 18 Blood Pressure 109/66 153/79 H 125/70 H Blood Pressure Mean 80 103 88 Pulse Ox 100 98 98 Oxygen Delivery Method Room Air Room Air Room Air 01/18/24 19:01 01/18/24 18:42 01/18/24 18:40 Temperature 98.7 F Temperature Source Temporal Pulse Rate 87 88 Respiratory Rate 20 H 25 H Blood Pressure 125/70 H 125/70 H Blood Pressure Mean 88 88 Pulse Ox 100 98 Oxygen Delivery Method Room Air Room Air Room Air 01/18/24 19:57 01/18/24 20:44 01/18/24 20:44 Temperature 100.4 F H 100.4 F H 100.4 F H Temperature Source Oral Oral Oral Pulse Rate 92 110 H 110 H Respiratory Rate 26 H 19 H 19 H Blood Pressure 125/72 H 127/78 H 127/78 H Blood Pressure Mean 89 94 94 Pulse Ox 95 97 97 Oxygen Delivery Method Room Air Room Air Room Air <Dr. Nader Miller MD - Last Filed: 01/18/24 21:56> Physical Exam Const Vital Signs: 01/18/24 17:34 01/18/24 18:33 01/18/24 19:00 Temperature 98.7 F 98.8 F Temperature Source Temporal Oral Pulse Rate 93 90 90 Respiratory Rate 18 28 H 18 Blood Pressure 109/66 153/79 H 125/70 H Blood Pressure Mean 80 103 88 Pulse Ox 100 98 98 Oxygen Delivery Method Room Air Room Air Room Air 01/18/24 19:01 01/18/24 18:42 01/18/24 18:40 Temperature 98.7 F Temperature Source Temporal Pulse Rate 87 88 Respiratory Rate 20 H 25 H Blood Pressure 125/70 H 125/70 H Blood Pressure Mean 88 88 Pulse Ox 100 98 Oxygen Delivery Method Room Air Room Air Room Air 01/18/24 19:57 01/18/24 20:44 01/18/24 20:44 Temperature 100.4 F H 100.4 F H 100.4 F H Temperature Source Oral Oral Oral Pulse Rate 92 110 H 110 H Respiratory Rate 26 H 19 H 19 H Blood Pressure 125/72 H 127/78 H 127/78 H Blood Pressure Mean 89 94 94 Pulse Ox 95 97 97 Oxygen Delivery Method Room Air Room Air Room Air MDM <TRISTEN Moon - Last Filed: 01/18/24 21:32> [facility] MDM Narrative Medical decision making narrative: History gathered from: Patient and spouse Consults: General surgery Differential: Intra-abdominal abscess, pneumonia, UTI Patient is 1 week postop from laparoscopic right hemicolectomy for ileocecal intussusception. Today he developed a fever, chills, increased abdominal pain and purulent drainage from the open abdominal incision site. He has rigors on exam. He is afebrile with normal vital signs. He took Tylenol prior to arrival. Heart is regular and lungs are clear. Abdomen is significantly tenderbut not peritoneal. There is purulent drainage noted on the upper abdominal Steri-Strips. Sepsis workup was initiated with labs, blood cultures, and IV Zosyn ordered. WBC is 12.6, lactate 1.4. Normal electrolytes and renal function. There is mild elevation of LFTs with normal lipase. CT shows multiple suspected areas of phlegmon/developing abscess in the right side of the abdomen at the site of resection. 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 I consulted Dr. Garner who plans to take the patient to the OR and admit. External records reviewed: Surgical site incision culture on 01/18/2024 shows Enterococcus faecalis and Pseudomonas aeruginosa I have personally performed a face to face assessment of the patient and have reviewed the MIAH Note. I performed a substantive portion of the visit including all aspects of the following. My spears findings include: History is history of intussusception. Patient was discharged on . There is an area that was left open. was to change the dressing daily. She states this morning the color of the drainage was different. Appears purulent. He had shaking chills at home and fever. He reports not feeling well. Does feel nauseous. Does complain of increased abdominal pain as well. Exam is patient appears ill. His vital signs are unremarkable, however. He does appear flushed. HEENT exam is remarkable dry mucosa. Heart is regular. Rate is normal. No murmur, gallop or rub. Lungs reveal symmetric breath soundswith no abnormal breath sounds. Abdomen is firm with significant tenderness there is purulent drainage noted. There is slight erythema along the incision region. He has guarding. There is tympany to percussion question of percussiontenderness. Bowel sounds are diminished. He is alert oriented x 3. Medical Decision Making concern patient has postop infection with documented fever at home with chills. CT of the abdomen was obtained. Appropriate workup was undertaken which included blood work and blood cultures prior to administration of Zosyn. Will obtain CT of the abdomen to determine if there isan intra-abdominal abscess to explain the drainage and significant tenderness. Case will be discussed with surgeon on-call who assisted Dr. García. Other additions or changes: [None] Lab Data Labs: Laboratory Results - last 24 hr 01/18/24 01/18/24 01/18/24 18:40 18:41 20:00 WBC 12.6 H RBC 5.03 Hgb 14.0 Hct 43.2 MCV 85.9 MCH 27.8 MCHC 32.4 RDW Std Deviation 39.0 RDW Coeff of Khadijah 12.5 Plt Count 421 MPV 9.8 Immature Gran % (Auto) 1.500 H Neut % (Auto) 82.4 H Lymph % (Auto) 6.2 L Butts % (Auto) 8.0 Eos % (Auto) 1.0 Baso % (Auto) 0.9 Absolute Neuts (auto) 10.4 H Absolute Lymphs (auto) 0.78 L Nucleated RBC % 0 PT Cancelled 16.2 H INR Cancelled 1.3 APTT Cancelled 37.2 H Sodium 135 L Potassium 4.3 Chloride 104 Carbon Dioxide 23.0 Anion Gap 8 BUN 9 Creatinine 0.94 Estim Creat Clear Calc 124.40 Est GFR (MDRD) Af Amer 113 Est GFR (MDRD) Non-Af 93 BUN/Creatinine Ratio 9.6 L Glucose 114 H Lactic Acid 1.4 Calcium 8.9 Total Bilirubin 1.10 H AST 92 H ALT 124 H Alkaline Phosphatase 121 H Total Protein 6.9 Albumin 2.7 L Globulin 4.2 Albumin/Globulin Ratio 0.6 L Lipase 29 Urine Color Urine Clarity Urine pH Ur Specific [place] Urine Protein Urine Glucose (UA) Urine Ketones Urine Occult Blood Urine Nitrite Urine Bilirubin Urine Urobilinogen Ur Leukocyte Esterase Urine RBC Urine WBC Ur Squamous Epith Cells Urine Bacteria Urine Mucus 01/18/24 20:44 WBC RBC Hgb Hct MCV MCH MCHC RDW Std Deviation RDW Coeff of Khadijah Plt Count MPV Immature Gran % (Auto) Neut % (Auto) Lymph % (Auto) Butts % (Auto) Eos % (Auto) Baso % (Auto) Absolute Neuts (auto) Absolute Lymphs (auto) Nucleated RBC % PT INR APTT Sodium Potassium Chloride Carbon Dioxide Anion Gap BUN Creatinine Estim Creat Clear Calc Est GFR (MDRD) Af Amer Est GFR (MDRD) Non-Af BUN/Creatinine Ratio Glucose Lactic Acid Calcium Total Bilirubin AST ALT Alkaline Phosphatase Total Protein Albumin Globulin Albumin/Globulin Ratio Lipase Urine Color Yellow Urine Clarity Clear Urine pH 6.0 Ur Specific [place] 1.015 Urine Protein 15 H Urine Glucose (UA) Normal Urine Ketones 5 H Urine Occult Blood Negative Urine Nitrite Negative Urine Bilirubin Negative Urine Urobilinogen Normal Ur Leukocyte Esterase Negative Urine RBC 0 SEEN Urine WBC 0 SEEN Ur Squamous Epith Cells 0 SEEN Urine Bacteria 0 SEEN Urine Mucus 0 SEEN Radiography Diagnostic Testing: Clinical Impression(s) from Imaging Studies Abdomen/Pelvis CT 01/18/24 19:08 IMPRESSION: 1. Interval recent right hemicolectomy with multiple suspected areas of phlegmon/developing abscesses in the right side of the retroperitoneum at the site of resection of the ascending colon. 2. Small amount of free fluid in the pelvis. 3. 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 4. Small bilateral pleural effusions with some bibasilar atelectasis. Electronically Signed: Chidi Carvajal MD at 20:43 EDT Reading Location ID and State: [id number] / [facility] Tel , Service support , ADDENDUM: 01/18/24 2100 IMPRESSION: 1. Interval recent right hemicolectomy with multiple suspected areas of phlegmon/developing abscesses in the right side of the retroperitoneum at the site of resection of the ascending colon. 2. Small amount of free fluid in the pelvis. 3. 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 4. Small bilateral pleural effusions with some bibasilar atelectasis. N.B. : The above Results were Read Back by Chidi Carvajal MD to TRISTEN Moon, and understanding confirmed on 01/18/2024 20:53:10 (ET). Electronically Signed: Chidi Carvajal MD at 20:43 EDT Reading Location ID and State: [id number] / [facility] Tel , Service support , Chest X-Ray 01/18/24 19:25 IMPRESSION: No active disease. Electronically Signed: Chidi Carvajal MD at 19:57 EDT Reading Location ID and State: [id number] / [facility] Tel , Service support , <Dr. aNder Miller MD - Last Filed: 01/18/24 21:56> [facility] MDM Narrative Medical decision making narrative: History gathered from: Patient and spouse Consults: General surgery Differential: Intra-abdominal abscess, pneumonia, UTI Patient is 1 week postop from laparoscopic right hemicolectomy for ileocecal intussusception. Today he developed a fever, chills, increased abdominal pain and purulent drainage from the open abdominal incision site. He has rigors on exam. He is afebrile with normal vital signs. He took Tylenol prior to arrival. Heart is regular and lungs are clear. Abdomen is significantly tender but not peritoneal. There is purulent drainage noted on the upper abdominal Steri-Strips. Sepsis workup was initiated with labs, blood cultures, and IV Zosyn ordered. WBC is 12.6, lactate 1.4. Normal electrolytes and renal function. There is mild elevation of LFTs with normal lipase. CT shows multiple suspected areas of phlegmon/developing abscess in the right side of the abdomen at the site of resection. 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 I consulted Dr. Garner who plans to take the patient to the OR and admit. External records reviewed: Surgical site incision culture on 01/18/2024 shows Enterococcus faecalis and Pseudomonas aeruginosa I have personally performed a face to face assessment of the patient and have reviewed the MIAH Note. I performed a substantive portion of the visit including all aspects of the following. My spears findings include: History is history of intussusception. Patient was discharged on . There is an area that was left open. was to change the dressing daily. She states this morning the color of the drainage was different. Appears purulent. He had shaking chills at home and fever. He reports not feeling well. Does feel nauseous. Does complain of increased abdominal pain as well. Exam is patient appears ill. His vital signs are unremarkable, however. He does appear flushed. HEENT exam is remarkable dry mucosa. Heart is regular. Rate is normal. No murmur, gallop or rub. Lungs reveal symmetric breath sounds with no abnormal breath sounds. Abdomen is firm with significant tenderness there is purulent drainage noted. There is slight erythema along the incision region. He has guarding. There is tympany to percussion question of percussion tenderness. Bowel sounds are diminished. He is alert oriented x 3. Medical Decision Making concern patient has postop infection with documented fever at home with chills. CT of the abdomen was obtained. Appropriate workup was undertaken which included blood work and blood cultures prior to administration of Zosyn. Will obtain CT of the abdomen to determine if there is an intra-abdominal abscess to explain the drainage and significant tenderness. Case will be discussed with surgeon on-call who assisted Dr. García. Other additions or changes: Plan is OR. Dr. Gonzales was made aware of the thrombus in the superior mesenteric vein that was noted by radiologist. Lab Data Labs: Laboratory Results - last 24 hr 01/18/24 01/18/24 01/18/24 18:40 18:41 20:00 WBC 12.6 H RBC 5.03 Hgb 14.0 Hct 43.2 MCV 85.9 MCH 27.8 MCHC 32.4 RDW Std Deviation 39.0 RDW Coeff of Khadijah 12.5 Plt Count 421 MPV 9.8 Immature Gran % (Auto) 1.500 H Neut % (Auto) 82.4 H Lymph % (Auto) 6.2 L Butts % (Auto) 8.0 Eos % (Auto) 1.0 Baso % (Auto) 0.9 Absolute Neuts (auto) 10.4 H Absolute Lymphs (auto) 0.78 L Nucleated RBC % 0 PT Cancelled 16.2 H INR Cancelled 1.3 APTT Cancelled 37.2 H Sodium 135 L Potassium 4.3 Chloride 104 Carbon Dioxide 23.0 Anion Gap 8 BUN 9 Creatinine 0.94 Estim Creat Clear Calc 124.40 Est GFR (MDRD) Af Amer 113 Est GFR (MDRD) Non-Af 93 BUN/Creatinine Ratio 9.6 L Glucose 114 H Lactic Acid 1.4 Calcium 8.9 Total Bilirubin 1.10 H AST 92 H ALT 124 H Alkaline Phosphatase 121 H Total Protein 6.9 Albumin 2.7 L Globulin 4.2 Albumin/Globulin Ratio 0.6 L Lipase 29 Urine Color Urine Clarity Urine pH Ur Specific [place] Urine Protein Urine Glucose (UA) Urine Ketones Urine Occult Blood Urine Nitrite Urine Bilirubin Urine Urobilinogen Ur Leukocyte Esterase Urine RBC Urine WBC Ur Squamous Epith Cells Urine Bacteria Urine Mucus 01/18/24 20:44 WBC RBC Hgb Hct MCV MCH MCHC RDW Std Deviation RDW Coeff of Khadijah Plt Count MPV Immature Gran % (Auto) Neut % (Auto) Lymph % (Auto) Butts % (Auto) Eos % (Auto) Baso % (Auto) Absolute Neuts (auto) Absolute Lymphs (auto) Nucleated RBC % PT INR APTT Sodium Potassium Chloride Carbon Dioxide Anion Gap BUN Creatinine Estim Creat Clear Calc Est GFR (MDRD) Af Amer Est GFR (MDRD) Non-Af BUN/Creatinine Ratio Glucose Lactic Acid Calcium Total Bilirubin AST ALT Alkaline Phosphatase Total Protein Albumin Globulin Albumin/Globulin Ratio Lipase Urine Color Yellow Urine Clarity Clear Urine pH 6.0 Ur Specific [place] 1.015 Urine Protein 15 H Urine Glucose (UA) Normal Urine Ketones 5 H Urine Occult Blood Negative Urine Nitrite Negative Urine Bilirubin Negative Urine Urobilinogen Normal Ur Leukocyte Esterase Negative Urine RBC 0 SEEN Urine WBC 0 SEEN Ur Squamous Epith Cells 0 SEEN Urine Bacteria 0 SEEN Urine Mucus 0 SEEN Radiography Diagnostic Testing: Clinical Impression(s) from Imaging Studies Abdomen/Pelvis CT 01/18/24 19:08 IMPRESSION: 1. Interval recent right hemicolectomy with multiple suspected areas of phlegmon/developing abscesses in the right side of the retroperitoneum at the site of resection of the ascending colon. 2. Small amount of free fluid in the pelvis. 3. 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 4. Small bilateral pleural effusions with some bibasilar atelectasis. Electronically Signed: Chidi Carvajal MD at 20:43 EDT , ADDENDUM: 01/18/24 2100 IMPRESSION: 1. Interval recent right hemicolectomy with multiple suspected areas of phlegmon/developing abscesses in the right side of the retroperitoneum at the site of resection of the ascending colon. 2. Small amount of free fluid in the pelvis. 3. 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 4. Small bilateral pleural effusions with some bibasilar atelectasis. N.B. : The above Results were Read Back by Chidi Carvajal MD to TRISTEN Moon, and understanding confirmed on 01/18/2024 20:53:10 (ET). Electronically Signed: Chidi Carvajal MD at 20:43 EDT , Chest X-Ray 01/18/24 19:25 IMPRESSION: No active disease. Electronically Signed: Chidi Carvajal MD at 19:57 EDT , Discharge Plan Dx/Rx/DC Orders Clinical Impression: Abscess, intra-abdominal, postoperative, Sepsis without acute organ dysfunction, Superior mesenteric vein thrombosis Disposition Disposition: [facility] What to do if you have Problems For any increased pain, shortness of breath, bleeding, nausea or vomiting, chest pain, or any unexpected problems, contact your Primary Care Provider. Call [facility] ([phone]) or report to the closest Emergency Room. Call 911 if necessary. 01/18/242131 <Electronically signed by Дмитрий RAMON> Cosigner Signature (if applicable): 01/18/242155 <Electronically signed by Nader Miller MD> CC: No Primary Care Physician ~ Signed [facility] Work Phone: [phone]) 207-490903-21-2024 Discharge summary Author Ni Alexander [facility] January 16, 2024 12:23pm Note Date/Time January 16, 2024 9:4 9am [facility] Medical Records Department [address] [place] [address] Discharge Summary 01/16/24 0920 MR#: [id number] Acct: [id number] Name: TERRIE ALLEN Rep #:[id number] : 1980 43 From: Ni RAMON PA-C PCP: Dr. Marcellus Oakes MD Status: ADM IN Location: [facility] [id number] Providers Date of Admission: 01/11/24 Primary Care Physician: Dr. Marcellus Oakes MD Reason For Visit: ILEOCECAL INTUSSUSCEPTION Diagnosis Discharge Diagnosis (1) Ileocolic intussusception: Status: Acute Code(s): K56.1 - Intussusception (2) Infection following a procedure, deep incisional surgical site, initial encounter: Status: Acute Code(s): T81.42XA - Infection following a procedure, deep incisional surgical site, initial encounter Plan I have evaluated this patient in conjunction with Dr. García. He has independently evaluated this patient. Plan to demonstrate packing change with Continue oral Augmentin Await wound culture Continue transitional diet Plan for discharge later today Pathology results pending Continue to change dressing twice daily or more often if needed Medications at Discharge Home Medications acetaminophen 500 mg tablet 500 mg PO Q6H PRN PRN Pain 1-10 Or Fever #0 tabs 01/16/24 amoxicillin 875 mg-potassium clavulanate 125 mg tablet 1 tab PO BID 9 days #18 tabs 01/16/24 celecoxib 200 mg capsule 200 mg PO DAILY 7 days #7 caps 01/16/24 oxycodone 5 mg tablet 5 mg PO Q6H PRN PRN Pain Score 4-10 2 days #6 tabs 01/16/24 Hospital Course Operations - (Hand-assisted laparoscopic right hemicolectomy) Summary of Care Provided Minutes Spent on Discharge: 35 Hospital Course: Patient is a 43 y/o M who presented to the ED with an acute onset of abdominal pain with bright red blood following a bowel movement. CT scan of the ab/pel demonstrated intussusception of the ileocecal valve extending to the mid transverse colon. Dr. García performed a Hand-assisted laparoscopic right hemicolectomy on 01/11/24. Patient tolerated the procedure well. On POD #4, patient was noted to have blanching erythema surrounding the midline incision. Patient's incision was opened at bedside and revealed a brown, purulent materialwith a foul smell coming from the incision. Drain was cultured and sent to microbiology. Results are pending. Patient was placed on Augmentin. He notes he has been having loose stools. He notes having night sweats as well. Upon discharge, patient's was shown how to pack the incision and place gauze dressing over top of the incision. Patient notes he is tolerating a transitionaldiet well. He denies nausea, vomiting. He is passing flatus. He will have a short follow-up on Saturday for wound evaluation. Weight / BMI Weight Weight: 221 lb Body Mass Index (BMI) 26.9 ABG / Lab / Microbiology Data 01/16/24 06:18 01/16/24 06:18 Laboratory: Laboratory Results - last 24 hr 01/16/24 06:18: WBC 10.4, RBC 4.15 L, Hgb 11.5 L, Hct 35.4 L, MCV 85.3, MCH 27.7, MCHC 32.5, RDW Std Deviation 38.5, RDW Coeff of Khadijah 12.5, Plt Count 290, MPV 11.0, Immature Gran % (Auto) 0.500, Neut % (Auto) 67.5, Lymph % (Auto) 11.5 L, Butts % (Auto) 11.8 H, Eos % (Auto) 7.9 H, Baso % (Auto) 0.8, Absolute Neuts (auto) 7.0, Absolute Lymphs (auto) 1.19, Nucleated RBC % 0, Sodium 141, Potassium 3.6, Chloride 108 H, Carbon Dioxide 26.0, Anion Gap 7, BUN 11, Creatinine 0.83, Estim Creat Clear Calc 140.89, Est GFR (MDRD) Af Amer 129, Est GFR (MDRD) Non-Af 107, BUN/Creatinine Ratio 13.2, Glucose 102, Calcium 8.5, Phosphorus 2.7,Magnesium 2.1, Total Bilirubin 1.20 H, AST 85 H, ALT 44, Alkaline Phosphatase 70, Total Protein 5.8 L, Albumin 2.3 L, Globulin 3.5, Albumin/Globulin Ratio 0.7L Microbiology: Microbiology 01/15/24 08:00 Incision/Surgical Site Gram Stain - Final 01/10/24 20:06 Stool Stool Lactoferrin - Final 01/10/24 20:06 Stool Enteric Bacteriology - Final 01/10/24 20:06 Stool Clostridioides difficile (PCR) - Final D/C Instructions Discharge Diet: - (Transitional diet; recommendations provided; Yogurt- So delicious has probiotic) Lifting Restrictions: 10-15 pounds for 4 weeks Call your doctor if your incision/area has: Increased Pain/ Swelling Call your doctor if you observe: Fever of 101 or Higher Suture Line Care: Avoid Pulling/Pushing and Avoid Pinching/Bending Additional Dressing/Incision Instructions: Recommend removing packing and replacing the packing daily after your shower. Place dry gauze and ABD over top of the incision twice daily or more often if needed. Additional Instructions: You were prescribed Augmentin. You will want to eat prior to taking this medication to help coat your stomach. Some recommendations would be the "So delicious" yogurt or a piece of dark chocolate. Please Follow Up With: Ricco García MD When: On Saturday, 01/19 at 11:00 AM. Please call our office at [phone] if anyquestions or concerns. Meaningful Use Info Meaningful Use Diagnoses (Choose all that apply): None applicable Discharge Plan Admission Admit Date/Time: 01/11/24 04:00 Primary Reason for Your Visit: Ileocolic intussusception Attending Provider: Ricco García Primary Care Provider: Marcellus Oakes Instructions Additional Instructions / Restrictions: Colectomy Diet ? Start light with soups and soft bland foods. Refer to your transitional diet instruction sheet Activity ? You may drive in 3-5 days but not while taking narcotic pain medication. ? I encourage walking. You may go up steps, one at a time. ? Do not swim or use hot tubs for 2 weeks. Lifting ? You may lift up to 10-15 pounds for 4 weeks. Dressings/Incision ? You may shower OVER your steri-strips as normal. Steri-strips will be removed at your 1st follow-up visit. ? Do NOT tub bathe for 1 week ? Recommend removing and replacing the packing once a day. Replace gauze dressing and ABD pad twice daily or more often if the gauze hasdrainage on the dressing. Medications ? Anesthesia used during surgery and pain medications may cause constipation. I recommend initiating on the day of surgery a fiber supplement like, Metamucil, Citrucel, FiberCon, Benefiber, or a generic form of these medications. 1 heapingtablespoon in water daily. You may continue to utilize any bowel regimen or orallaxatives that you routinely take. ? As long as you are not intolerant to Tylenol, acetaminophen, ibuprofen, Motrin, Advil, Aleve, or similar medications, I would recommend transitioning tothese gehz-nax-xdtbsul medicines as soon as possible instead of continued use ofnarcotic pain medication. Follow up ? You should call [facility] soon after surgery, at [phone] option 1 to make a follow up appointment for 6 days and another onein 14 days after your surgery. Transitional Diet Beverages: ? Soda (cola, diet cola, lemon-[place], diet lemon-[place], tevin reymundo, diet tevin reymundo) ? Tea (hot or iced) ? Milk (low-fat, 2%, lactose free) ? Coffee ? Juice (without pulp) ? Oral Nutrition supplement Breakfast: ? Hot cereal (oatmeal or cream of wheat) ? Scrambled eggs ? Blueberry muffin ? Cold cereal (no whole grain cereals) ? [place] (white) Lunch or Dinner: Deli Items: Hot Items: [place] sandwich Roast [place] Tuna salad (sandwich or alone) Macaroni & Cheese Egg salad (sandwich or alone) Mashed potatoes & gravy Chicken salad (sandwich or alone) Carrots Green beans Cold Sides Cottage cheese Yogurt- So Delicious and Silk brands any flavor (diary free and this brand has active probiotic cultures) Hardboiled egg Dessert: ? Gelatin, pudding, side kick (juice slushie) Discharge Orders/Prescriptions Prescriptions: New amoxicillin-pot clavulanate 875-125 mg Tablet 1 tab PO BID 9 Days Qty: 18 0RF celecoxib 200 mg Capsule 200 mg PO DAILY 7 Days Qty: 7 0RF acetaminophen 500 mg Tablet 500 mg PO Q6H PRN PRN (Reason: Pain 1-10 Or Fever) Qty: 0 0RF oxycodone 5 mg Tablet 5 mg PO Q6H PRN PRN (Reason: Pain Score 4-10) 2 Days Qty: 6 0RF Referrals / Follow Up: Marcellus Oakes MD [Primary Care Provider] - Ricco García MD [Med Staff - Active Staff] - 01/20/24 11:00 am (This will be awound check. Please call our office if you have any questions.) Disposition Disposition (needs filled in before D/C Order can be placed): Home, Self Care Charges/Coding Visit Charges Inpatient E&M: 08798 Disch Hosp >30min (no charge; post-op) 01/16/24 6423 <Electronically signed by Ni RAMON PA-C> Cosigner Signature (if applicable): CC: ALLEN Alexander; Dr. Marcellus Oakes MD~ Signed [facility] Work Phone: 1(155) 699-525403-21-2024 Progress note Author Ni Alexander [facility] January 16, 2024 9:06am Note Date/Time January 16, 2024 8:4 0am [facility] Medical Records Department [address] [place] [address] Progress Note - Surgery 01/16/24 0836 MR#: [id number] Acct: [id number] Name: TERRIE ALLEN Rep #:[id number] : 1980 43 From: Ni RAMON PA-C PCP: Dr. Marcellus Oakes MD Status: ADM IN Location: [place]3 AD363-4 Subjective Subjective Patient is a 43 y/o M I a following in conjunction with Dr. García. Patient was started on Augmentin yesterday following draining of infected midline incision. Patient is unsure if Augmentin is now causing diarrhea. He is passing flatus andhaving loose diarrhea. He is tolerating his diet without any concerns. He deniesany abdominal pain, minimal abdominal discomfort. He noted night sweats again over night. He has become a little more comfortable with dressing changes. Objective Data Objective Data Vital Signs: Vital Signs Temp Pulse Resp BP Pulse Ox O2 Del Method 97.8 F 84 16 113/73 100 Room Air 01/16/24 04:10 01/16/24 04:10 01/16/24 04:10 01/16/24 04:10 01/16/24 04:10 01/16/24 04:10 Oxygen Delivery Method Room Air Weight: 221 lb Body Mass Index (BMI) 26.9 Intake & Output: Intake and Output for Last 24 Hours 01/14/24 01/15/24 01/16/24 23:59 23:59 23:59 Intake Total 2160 / 2410 4472.0 / 4872.0 1100 / 1100 Output Total 600 / 600 Balance 2160 / 2410 3872.0 / 4272.0 1100 / 1100 Lab / Micro Data 01/16/24 06:18 01/16/24 06:18 Labs: Laboratory Results - last 24 hr 01/15/24 06:28: Sodium 138, Potassium 3.4 L, Chloride 107, Carbon Dioxide 24.0, Anion Gap 7, BUN 14, Creatinine 0.97, Estim Creat Clear Calc 120.56, Est GFR (MDRD) Af Amer 108, Est GFR (MDRD) Non-Af 90, BUN/Creatinine Ratio 14.4, Ylgsbcm32, Calcium 8.0 L, Phosphorus 2.5, Magnesium 2.2, Total Bilirubin 1.40 H, AST 72H, ALT 28, Alkaline Phosphatase 63, Total Protein 5.6 L, Albumin 2.3 L, Globulin3.3, Albumin/Globulin Ratio 0.7 L 01/16/24 06:18: WBC 10.4, RBC 4.15 L, Hgb 11.5 L, Hct 35.4 L, MCV 85.3, MCH 27.7, MCHC 32.5, RDW Std Deviation 38.5, RDW Coeff of Khadijah 12.5, Plt Count 290, MPV 11.0, Immature Gran % (Auto) 0.500, Neut % (Auto) 67.5, Lymph % (Auto) 11.5 L, Butts % (Auto) 11.8 H, Eos % (Auto) 7.9 H, Baso % (Auto) 0.8, Absolute Neuts (auto) 7.0, Absolute Lymphs (auto) 1.19, Nucleated RBC % 0, Sodium 141, Potassium 3.6, Chloride 108 H, Carbon Dioxide 26.0, Anion Gap 7, BUN 11, Creatinine 0.83, Estim Creat Clear Calc 140.89, Est GFR (MDRD) Af Amer 129, Est GFR (MDRD) Non-Af 107, BUN/Creatinine Ratio 13.2, Glucose 102, Calcium 8.5, Phosphorus 2.7, Magnesium 2.1, Total Bilirubin 1.20 H, AST 85 H, ALT 44, Alkaline Phosphatase 70, Total Protein 5.8 L, Albumin 2.3 L, Globulin 3.5, Albumin/Globulin Ratio 0.7 L Micro: Microbiology 01/15/24 08:00 Incision/Surgical Site Gram Stain - Final 01/10/24 20:06 Stool Stool Lactoferrin - Final 01/10/24 20:06 Stool Enteric Bacteriology - Final 01/10/24 20:06 Stool Clostridioides difficile (PCR) - Final Physical Exam GI GI Narrative: Abdomen- soft, minimal amount of tenderness. Midline incision with moderate amount of bloody purulent material on the dressing. Packing was removed. ABD dressing was reapplied until patient obtains shower. Remaining incisions c/d/i. Positive bowel sounds. Assessment & Plan Assessment/Plan (1) Ileocolic intussusception: (2) Infection following a procedure, deep incisional surgical site, initial encounter: PLAN: Plan I have evaluated this patient in conjunction with Dr. García. He has independently evaluated this patient. Plan to demonstrate packing change with Continue oral Augmentin Await wound culture Continue transitional diet Plan for discharge later today Pathology results pending Continue to change dressing twice daily or more often if needed Charges/Coding Visit Charges Inpatient E&M: 16309 Subs Hosp L1 (no charge; post-op) 01/16/24 0906 <Electronically signed by Ni RAMON PA-C> Cosigner Signature (if applicable): CC: ~ Signed [facility] Work Phone: 1(266) 482-409703-20-2024 Progress note Author Ni [facility] January 15, 2024 8:58am Note Date/Time January 15, 2024 8:3 1am [facility] Medical Records Department [address] [place] [address] Progress Note - Surgery 01/15/24 0822 MR#: [id number] Acct: [id number] Name: TERRIE ALLEN Rep #:[id number] : 1980 43 From: Ni RAMON PA-C PCP: Dr. Marcellus Oakes MD Status: ADM IN [facility] Subject[facility] Subjective Patient is a 43 y/o M I am following in conjunction with Dr. García. Patient notes having night sweats over night. He denies having a fever. He denies nausea, vomiting. He is tolerating a transitional diet well. He notes keeping upwith the pain medication over night. The nursing staff outlined the erythema surrounding the midline incision. Erythema was not noted to spread beyond the outline. Patient notes he had a difficult night of sleep. Objective Data Objective Data Vital Signs: Vital Signs Temp Pulse Resp BP Pulse Ox O2 Del Method 98.9 F 103 H 16 111/59 L 94 Room Air 01/15/24 02:28 01/15/24 02:28 01/15/24 02:28 01/15/24 02:28 01/15/24 02:28 01/15/24 02:28 Oxygen Delivery Method Room Air Weight: 221 lb Body Mass Index (BMI) 26.9 Intake & Output: Intake and Output for Last 24 Hours 01/13/24 01/14/24 01/15/24 23:59 23:59 23:59 Intake Total 1667.5 / 1967.5 2160 / 2410 1847.5 / 1847.5 Output Total 900 / 900 600 / 600 Balance 767.5 / 1067.5 2160 / 2410 1247.5 / 1247.5 Lab / Micro Data 01/15/24 06:28 01/14/24 06:07 Labs: Laboratory Results - last 24 hr 01/14/24 06:07: Phosphorus 1.6 L 01/15/24 06:28: WBC 11.3 H, RBC 3.93 L, Hgb 11.1 L, Hct 33.8 L, MCV 86.0, MCH 28.2, MCHC 32.8, RDW Std Deviation 38.8, RDW Coeff of Khadijah 12.3, Plt Count 245, MPV 10.2, Immature Gran % (Auto) 0.300, Neut % (Auto) 68.9, Lymph % (Auto) 12.4 L, Butts % (Auto) 11.6 H, Eos % (Auto) 6.3 H, Baso % (Auto) 0.5, Absolute Neuts (auto) 7.8 H, Absolute Lymphs (auto) 1.41, Nucleated RBC % 0 Micro: Microbiology 01/10/24 20:06 Stool Stool Lactoferrin - Final 01/10/24 20:06 Stool Enteric Bacteriology - Final 01/10/24 20:06 Stool Clostridioides difficile (PCR) - Final Physical Exam GI GI Narrative: Abdomen- soft, slight tenderness at the incision sites. Outline of the erythema drawn in purple marking pen. No erythema noted outside of the purple line. Erythema with some blanching noted higher up on the right side of the incision. Three steri- strips were removed. Using a three piece set, a Qtip was used to puncture the incision where there appeared to be a weak spot. A moderate amount of foul malodorous, brown drainage was expressed. Culture was obtained and sent.Incision was irrigated out with 20 cc of normal saline until clear drainage was expressed. /" iodoform packing was placed followed by two folded 4 x 4 gauze dressings secured with medipore tape. Assessment & Plan Assessment/Plan (1) Infection following a procedure, deep incisional surgical site, initial encounter: (2) Ileocolic intussusception: PLAN: Plan I am following this patient in conjunction with Dr. García, who has also independently evaluated this patient. Labs reviewed. Chemistry still pending WBC decreased Midline incisional infection with moderate foul malodorous, purulent fluid. Cultured. Await microbiology Started oral Augmentin 875 mg BID. Patient will be discharged home on Augmentin. Continue transitional diet Change gauze dressing twice daily or more often if dressing becomes saturated Plan to replace packing tomorrow Hopeful discharge tomorrow pending progress Charges/Coding Visit Charges Inpatient E&M: 33422 Subs Hosp L1 (post-op; no charge) 01/15/24 0858 <Electronically signed by Ni RAMON PA-C> Cosigner Signature (if applicable): CC: ~ Signed [facility] Work Phone: 1(348) 783-110503-19-2024 Procedure [facility] 01-14-2024 Procedure [facility]03-19-2024 Progress note Author Ni Alexander [facility] January 14, 2024 8:09am Note Date/Time January 14, 2024 8:0 4am [facility] Medical Records Department [address] [place] [address] Progress Note - Surgery 01/14/24 0752 MR#: [id number] Acct: [id number] Name: TERRIE ALLEN Johnie Rep #:[id number] : 1980 43 From: Ni RAMON PA-C PCP: Dr. Marcellus Oakes MD Status: ADM IN Location: [place]3 RX226-8 Subjective Subjective Patient evaluated resting in bed. He notes having a very restful night. He denies nausea, vomiting with clear liquids. He notes with the Tramadol medication he feels he is having sweating episodes with. He continues to pass flatus and have bowel movements. Objective Data Objective Data Vital Signs: Vital Signs Temp Pulse Resp BP Pulse Ox O2 Del Method 98.8 F 92 16 100/56 L 96 Room Air 01/14/24 07:04 01/14/24 02:39 01/14/24 02:39 01/14/24 02:39 01/14/24 02:39 01/14/24 02:39 Oxygen Delivery Method Room Air Weight: 216 lb 14.958 oz Body Mass Index (BMI) 27.1 Intake & Output: Intake and Output for Last 24 Hours 01/12/24 01/13/24 01/14/24 23:59 23:59 23:59 Intake Total 2481.91 / 2481.91 1667.5 / 1967.5 1500 / 1500 Output Total 400 / 1100 900 / 900 Balance 2081.91 / 1381.91 767.5 / 1067.5 1500 / 1500 Lab / Micro Data 01/14/24 06:07 01/14/24 06:07 Labs: Laboratory Results - last 24 hr 01/14/24 06:07: WBC 13.0 H, RBC 4.04 L, Hgb 11.4 L, Hct 34.8 L, MCV 86.1, MCH 28.2, MCHC 32.8, RDW Std Deviation 38.7, RDW Coeff of Khadijah 12.3, Plt Count 219, MPV 10.1, Immature Gran % (Auto) 0.500, Neut % (Auto) 80.0 H, Lymph % (Auto) 6.9L, Butts % (Auto) 10.8 H, Eos % (Auto) 1.4, Baso % (Auto) 0.4, Absolute Neuts (auto) 10.4 H, Absolute Lymphs (auto) 0.90, Nucleated RBC % 0, Sodium 137, Potassium 3.4 L, Chloride 108 H, Carbon Dioxide 26.0, Anion Gap 3 L, BUN 15, Creatinine 1.11, Estim Creat Clear Calc 105.35, Est GFR (MDRD) Af Amer 93, Est GFR (MDRD) Non-Af 77, BUN/Creatinine Ratio 13.5, Glucose 131 H, Calcium 8.1 L, Total Bilirubin 2.50 H, AST 29, ALT 20, Alkaline Phosphatase 62, Total Protein 5.6 L, Albumin 2.4 L, Globulin 3.2, Albumin/Globulin Ratio 0.8 L Micro: Microbiology 01/10/24 20:06 Stool Stool Lactoferrin - Final 01/10/24 20:06 Stool Enteric Bacteriology - Final 01/10/24 20:06 Stool Clostridioides difficile (PCR) - Final Physical Exam GI GI Narrative: Incisions- c/d/i. Slight amount of dark erythema more consistent with early ecchymosis, however will monitor. No signs of infection. No drainage from the incisions noted. No active bleeding or oozing noted. Tenderness noted at the right lower port site and near the midline incision. Assessment & Plan Assessment/Plan (1) Ileocolic intussusception: PLAN: I have seen this patient in conjunction with Dr. García Plan to transition patient to oral pain medication only today Increase his diet to full liquids and add protein supplement (Ensure protein supplement is lactose free per dietitian) Patient may shower today Labs reviewed Possible increase to transitional diet later today We will continue to monitor this patient Hopeful discharge tomorrow Charges/Coding Visit Charges Inpatient E&M: 57973 Subs Hosp L1 (no charge; post-op) 01/14/24 0809 <Electronically signed by Ni RAMON PA-C> Cosigner Signature (if applicable): CC: ~ Signed [facility] Work Phone: 1(528) 286-424103-19-2024 Progress note Author Ni [facility] January 14, 2024 8:09am Note Date/Time January 14, 2024 8:0 4am [facility] Medical Records Department [address] [facility] [place] [address] Progress Note - Surgery 01/14/24 0752 MR#: [id number] Acct: [id number] Name: ALLENTERRIE Rep #:[id number] : 1980 43 From: Ni RAMON PA-C PCP: Dr. Marcellus Oakes MD Status: ADM IN Location: [place]3 BO604-1 Subjective Subjective Patient evaluated resting in bed. He notes having a very restful night. He denies nausea, vomiting with clear liquids. He notes with the Tramadol medication he feels he is having sweating episodes with. He continues to pass flatus and have bowel movements. Objective Data Objective Data Vital Signs: Vital Signs Temp Pulse Resp BP Pulse Ox O2 Del Method 98.8 F 92 16 100/56 L 96 Room Air 01/14/24 07:04 01/14/24 02:39 01/14/24 02:39 01/14/24 02:39 01/14/24 02:39 01/14/24 02:39 Oxygen Delivery Method Room Air Weight: 216 lb 14.958 oz Body Mass Index (BMI) 27.1 Intake & Output: Intake and Output for Last 24 Hours 01/12/24 01/13/24 01/14/24 23:59 23:59 23:59 Intake Total 2481.91 / 2481.91 1667.5 / 1967.5 1500 / 1500 Output Total 400 / 1100 900 / 900 Balance 2081.91 / 1381.91 767.5 / 1067.5 1500 / 1500 Lab / Micro Data 01/14/24 06:07 01/14/24 06:07 Labs: Laboratory Results - last 24 hr 01/14/24 06:07: WBC 13.0 H, RBC 4.04 L, Hgb 11.4 L, Hct 34.8 L, MCV 86.1, MCH 28.2, MCHC 32.8, RDW Std Deviation 38.7, RDW Coeff of Khadijah 12.3, Plt Count 219, MPV 10.1, Immature Gran % (Auto) 0.500, Neut % (Auto) 80.0 H, Lymph % (Auto) 6.9L, Butts % (Auto) 10.8 H, Eos % (Auto) 1.4, Baso % (Auto) 0.4, Absolute Neuts (auto) 10.4 H, Absolute Lymphs (auto) 0.90, Nucleated RBC % 0, Sodium 137, Potassium 3.4 L, Chloride 108 H, Carbon Dioxide 26.0, Anion Gap 3 L, BUN 15, Creatinine 1.11, Estim Creat Clear Calc 105.35, Est GFR (MDRD) Af Amer 93, Est GFR (MDRD) Non-Af 77, BUN/Creatinine Ratio 13.5, Glucose 131 H, Calcium 8.1 L, Total Bilirubin 2.50 H, AST 29, ALT 20, Alkaline Phosphatase 62, Total Protein 5.6 L, Albumin 2.4 L, Globulin 3.2, Albumin/Globulin Ratio 0.8 L Micro: Microbiology 01/10/24 20:06 Stool Stool Lactoferrin - Final 01/10/24 20:06 Stool Enteric Bacteriology - Final 01/10/24 20:06 Stool Clostridioides difficile (PCR) - Final Physical Exam GI GI Narrative: Incisions- c/d/i. Slight amount of dark erythema more consistent with early ecchymosis, however will monitor. No signs of infection. No drainage from the incisions noted. No active bleeding or oozing noted. Tenderness noted at the right lower port site and near the midline incision. Assessment & Plan Assessment/Plan (1) Ileocolic intussusception: PLAN: I have seen this patient in conjunction with Dr. García Plan to transition patient to oral pain medication only today Increase his diet to full liquids and add protein supplement (Ensure protein supplement is lactose free per dietitian) Patient may shower today Labs reviewed Possible increase to transitional diet later today We will continue to monitor this patient Hopeful discharge tomorrow Charges/Coding Visit Charges Inpatient E&M: 88929 Subs Hosp L1 (no charge; post-op) 01/14/24 0809 <Electronically signed by Ni RAMON PA-C> Cosigner Signature (if applicable): CC: ~ Signed [facility] Work Phone: 1(273) 611-317703-18-2024 Progress note Author [facility] January 13, 2024 11:19am Note Date/Time January 13, 2024 9:0 9am [facility] Medical Records Department [address] [place] [address] Progress Note - Surgery 01/13/24 0909 MR#: [id number] Acct: [id number] Name: TERRIE ALLEN Rep #:[id number] : 1980 43 From: Ni RAMON PA-C PCP: Dr. Marcellus Oakes MD Status: ADM IN Location: [place]3 KG155-4 Subjective Subjective Patient evaluated resting comfortably in the chair. He notes incisional abdominal soreness. He had some nausea and heartburn over night. He had some icechips without any concerns. He denies flatus and BM. Objective Data Objective Data Vital Signs: Vital Signs Temp Pulse Resp BP Pulse Ox O2 Del Method 98.7 F 97 16 115/68 95 Room Air 01/13/24 08:19 01/13/24 08:19 01/13/24 08:19 01/13/24 08:19 01/13/24 08:19 01/13/24 08:21 Oxygen Delivery Method Room Air Weight: 216 lb 14.958 oz Body Mass Index (BMI) 27.1 Intake & Output: Intake and Output for Last 24 Hours 01/11/24 01/12/24 01/13/24 23:59 23:59 23:59 Intake Total 2906.25 / 3306.25 2481.91 / 2481.91 Output Total 750 / 750 400 / 1100 900 / 900 Balance 2156.25 / 2556.25 2081.91 / 1381.91 -900 / -900 Lab / Micro Data 01/13/24 05:13 01/13/24 05:13 Labs: Laboratory Results - last 24 hr 01/12/24 16:50: Sodium 137, Potassium 3.6, Chloride 106, Carbon Dioxide 28.0, Anion Gap 3 L, BUN 10, Creatinine 1.16, Estim Creat Clear Calc 100.81, Est GFR (MDRD) Af Amer 88, Est GFR (MDRD) Non-Af 73, BUN/Creatinine Ratio 8.6 L, [id number] H, Calcium 8.0 L, Total Bilirubin 3.30 H, Direct Bilirubin 0.36 H, AST 27, ALT 22, Alkaline Phosphatase 66, Total Protein 6.1 L, Albumin 2.9 L, Globulin 3.2, Albumin/Globulin Ratio 0.9 01/13/24 05:13: WBC 13.1 H, RBC 4.36 L, Hgb 12.6 L, Hct 38.2 L, MCV 87.6, MCH 28.9, MCHC 33.0, RDW Std Deviation 39.3, RDW Coeff of Khadijah 12.1, Plt Count 215, MPV 10.4, Immature Gran % (Auto) 0.500, Neut % (Auto) 79.4 H, Lymph % (Auto) 8.6L, Butts % (Auto) 10.4 H, Eos % (Auto) 0.7, Baso % (Auto) 0.4, Absolute Neuts (auto) 10.4 H, Absolute Lymphs (auto) 1.13, Nucleated RBC % 0, Sodium 139, Potassium 4.0, Chloride 108 H, Carbon Dioxide 27.0, Anion Gap 4 L, BUN 12, Creatinine 1.05, Estim Creat Clear Calc 111.37, Est GFR (MDRD) Af Amer 99, Est GFR (MDRD) Non-Af 82, BUN/Creatinine Ratio 11.4, Glucose 102, Calcium 8.1 L, Phosphorus 2.3 L, Magnesium 2.0, Total Bilirubin 3.20 H, AST 31, ALT 24, Alkaline Phosphatase 74, Total Protein 5.9 L, Albumin 2.7 L, Globulin 3.2, Albumin/Globulin Ratio 0.8 L Micro: Microbiology 01/10/24 20:06 Stool Stool Lactoferrin - Final 01/10/24 20:06 Stool Enteric Bacteriology - Final 01/10/24 20:06 Stool Clostridioides difficile (PCR) - Final Radiography Diagnostic Testing: Radiology Impression KUB X-Ray 01/12/24 18:50 IMPRESSION: Nonspecific bowel gas pattern. Electronically Signed: Chidi Carvajal MD at 19:09 EDT , Physical Exam GI GI Narrative: Abdomen- soft, generalized tenderness. No erythema or infection noted. Hypoactive bowel sounds. Op-site dressing removed. Assessment & Plan Assessment/Plan (1) Ileocolic intussusception: PLAN: I have evaluated this patient in conjunction with Dr. Jovani Campbell on advancing diet until bowel function Continue ambulation and I.S. Labs reviewed. Phosphorous replaced We will continue to monitor this patient Charges/Coding Visit Charges Inpatient E&M: 54063 Subs Hosp L1 (post-op) 01/13/24 1119 <Electronically signed by Ni RAMON PA-C> Cosigner Signature (if applicable): CC: ~ Signed [facility] Work Phone: 1(977) 466-459803-18-2024 Progress note Author Ni Alexander [facility] January 13, 2024 11:19am Note Date/Time January 13, 2024 9:0 9am [facility] Medical Records Department [address] [place] [address] Progress Note - Surgery 01/13/24 0909 MR#: [id number] Acct: [id number] Name: TERRIE ALLEN Rep #:[id number] : 1980 43 From: Ni RAMON PA-C PCP: Dr. Marcellus Oakes MD Status: ADM IN Location: MS3 MP579-3 Subjective Subjective Patient evaluated resting comfortably in the chair. He notes incisional abdominal soreness. He had some nausea and heartburn over night. He had some icechips without any concerns. He denies flatus and BM. Objective Data Objective Data Vital Signs: Vital Signs Temp Pulse Resp BP Pulse Ox O2 Del Method 98.7 F 97 16 115/68 95 Room Air 01/13/24 08:19 01/13/24 08:19 01/13/24 08:19 01/13/24 08:19 01/13/24 08:19 01/13/24 08:21 Oxygen Delivery Method Room Air Weight: 216 lb 14.958 oz Body Mass Index (BMI) 27.1 Intake & Output: Intake and Output for Last 24 Hours 01/11/24 01/12/24 01/13/24 23:59 23:59 23:59 Intake Total 2906.25 / 3306.25 2481.91 / 2481.91 Output Total 750 / 750 400 / 1100 900 / 900 Balance 2156.25 / 2556.25 2081.91 / 1381.91 -900 / -900 Lab / Micro Data 01/13/24 05:13 01/13/24 05:13 Labs: Laboratory Results - last 24 hr 01/12/24 16:50: Sodium 137, Potassium 3.6, Chloride 106, Carbon Dioxide 28.0, Anion Gap 3 L, BUN 10, Creatinine 1.16, Estim Creat Clear Calc 100.81, Est GFR (MDRD) Af Amer 88, Est GFR (MDRD) Non-Af 73, BUN/Creatinine Ratio 8.6 L, [id number] H, Calcium 8.0 L, Total Bilirubin 3.30 H, Direct Bilirubin 0.36 H, AST 27, ALT 22, Alkaline Phosphatase 66, Total Protein 6.1 L, Albumin 2.9 L, Globulin 3.2, Albumin/Globulin Ratio 0.9 01/13/24 05:13: WBC 13.1 H, RBC 4.36 L, Hgb 12.6 L, Hct 38.2 L, MCV 87.6, MCH 28.9, MCHC 33.0, RDW Std Deviation 39.3, RDW Coeff of Khadijah 12.1, Plt Count 215, MPV 10.4, Immature Gran % (Auto) 0.500, Neut % (Auto) 79.4 H, Lymph % (Auto) 8.6L, Butts % (Auto) 10.4 H, Eos % (Auto) 0.7, Baso % (Auto) 0.4, Absolute Neuts (auto) 10.4 H, Absolute Lymphs (auto) 1.13, Nucleated RBC % 0, Sodium 139, Potassium 4.0, Chloride 108 H, Carbon Dioxide 27.0, Anion Gap 4 L, BUN 12, Creatinine 1.05, Estim Creat Clear Calc 111.37, Est GFR (MDRD) Af Amer 99, Est GFR (MDRD) Non-Af 82, BUN/Creatinine Ratio 11.4, Glucose 102, Calcium 8.1 L, Phosphorus 2.3 L, Magnesium 2.0, Total Bilirubin 3.20 H, AST 31, ALT 24, Alkaline Phosphatase 74, Total Protein 5.9 L, Albumin 2.7 L, Globulin 3.2, Albumin/Globulin Ratio 0.8 L Micro: Microbiology 01/10/24 20:06 Stool Stool Lactoferrin - Final 01/10/24 20:06 Stool Enteric Bacteriology - Final 01/10/24 20:06 Stool Clostridioides difficile (PCR) - Final Radiography Diagnostic Testing: Radiology Impression KUB X-Ray 01/12/24 18:50 IMPRESSION: Nonspecific bowel gas pattern. Electronically Signed: Chidi Carvajal MD at 19:09 EDT , Physical Exam GI GI Narrative: Abdomen- soft, generalized tenderness. No erythema or infection noted. Hypoactive bowel sounds. Op-site dressing removed. Assessment & Plan Assessment/Plan (1) Ileocolic intussusception: PLAN: I have evaluated this patient in conjunction with Dr. Jovani Campbell on advancing diet until bowel function Continue ambulation and I.S. Labs reviewed. Phosphorous replaced We will continue to monitor this patient Charges/Coding Visit Charges Inpatient E&M: 47972 Subs Hosp L1 (post-op) 01/13/24 1119 <Electronically signed by Ni RAMON PA-C> Cosigner Signature (if applicable): CC: ~ Signed [facility] Work Phone: 1(138) 662-689303-17-2024 Progress note Author Ricco García [facility] January 12, 2024 12:01pm Note Date/Time January 12, 2024 9:0 7am [facility] Medical Records Department [address] [place] [address] Progress Note - Surgery 01/12/24906 MR#: [id number] Acct: [id number] Name: TERRIE ALLEN Rep #:[id number] : 1980 43 From: Ricco Sierra PCP: Dr. Marcellus Oakes MD Status: ADM IN Location: [facility] [id number] Subjective Subjective Patient seen and examined during AM rounds. He is found resting in bed. He states that he had some pain when getting up to use the bathroom this morning. This led to some nausea but generally has not had nausea in response to his liquid intake. He also confirms that he is now urinating following a straight catheterization last evening after experiencing retention. He denies any returnof bowel function with gas. He is ambulating regularly. Objective Data Objective Data Vital Signs: Vital Signs Temp Pulse Resp BP Pulse Ox O2 Del Method 98.8 F 98 12 100/61 97 Room Air 01/12/24 08:10 01/12/24 08:10 01/12/24 08:10 01/12/24 08:10 01/12/24 08:10 01/12/24 08:10 Oxygen Delivery Method Room Air Weight: 216 lb 14.958 oz Body Mass Index (BMI) 27.1 Intake & Output: Intake and Output for Last 24 Hours 01/10/24 01/11/24 01/12/24 23:59 23:59 23:59 Intake Total 2906.25 / 3306.25 1395.83 / 1395.83 Output Total 750 / 750 200 / 200 Balance 2156.25 / 2556.25 1195.83 / 1195.83 Lab / Micro Data 01/12/24 05:38 01/12/24 05:38 Labs: Laboratory Results - last 24 hr 01/11/24 14:15: WBC 13.7 H, RBC 4.98, Hgb 13.9, Hct 42.9, MCV 86.1, MCH 27.9, MCHC 32.4, RDW Std Deviation 38.5, RDW Coeff of Khadijah 12.3, Plt Count 250, MPV 9.8, Immature Gran % (Auto) 0.400, Neut % (Auto) 80.3 H, Lymph % (Auto) 9.2 L, Butts % (Auto) 9.6, Eos % (Auto) 0.1, Baso % (Auto) 0.4, Absolute Neuts (auto) 11.0 H, Absolute Lymphs (auto) 1.26, Nucleated RBC % 0, Sodium 139, Potassium 3.8, Chloride 109 H, Carbon Dioxide 26.0, Anion Gap 4 L, BUN 14, Creatinine 1.13, Estim Creat Clear Calc 103.49, Est GFR (MDRD) Af Amer 91, Est GFR (MDRD) Non-Af 75, BUN/Creatinine Ratio 12.4, Glucose 137 H, Calcium 8.3 L, Phosphorus 2.7, Magnesium 1.7 01/12/24 05:38: WBC 12.7 H, RBC 4.68, Hgb 13.4, Hct 41.0, MCV 87.6, MCH 28.6, MCHC 32.7, RDW Std Deviation 39.4, RDW Coeff of Khadijah 12.4, Plt Count 217, MPV 10.7, Immature Gran % (Auto) 0.300, Neut % (Auto) 77.8 H, Lymph % (Auto) 9.2 L, Butts % (Auto) 11.7 H, Eos % (Auto) 0.7, Baso % (Auto) 0.3, Absolute Neuts (auto)9.9 H, Absolute Lymphs (auto) 1.16, Nucleated RBC % 0, Sodium 138, Potassium 3.7, Chloride 108 H, Carbon Dioxide 26.0, Anion Gap 4 L, BUN 13, Creatinine 1.11, Estim Creat Clear Calc 105.35, Est GFR (MDRD) Af Amer 93, Est GFR (MDRD) Non-Af 77, BUN/Creatinine Ratio 11.7, Glucose 105, Calcium 8.3 L Micro: Microbiology 01/10/24 20:06 Stool Stool Lactoferrin - Final 01/10/24 20:06 Stool Enteric Bacteriology - Final 01/10/24 20:06 Stool Clostridioides difficile (PCR) - Final Physical Exam Const oriented x3 Resp normal respiratory effort GI GI Narrative: Slight distention, operative dressings remain intact and are clean and dry?when removed the port sites remain covered with Steri-Strips. Patient's main incision remains covered with operative dressing. Patient has some tenderness about the incision sites with palpation. Assessment & Plan Assessment/Plan (1) Ileocolic intussusception: PLAN: Patient is a 43-year-old, otherwise healthy, male who presents with a 1 month history of frequent bowel movements, lower crampy abdominal pain, and hematochezia today. CT imaging is consistent with ileocolic intussusception. He is postoperative day 1 from hand-assisted laparoscopic right hemicolectomy. He is still experiencing some postoperative pain but appears to be tolerating a liquid diet. We continue to await return of bowel function. He had some urinary retention last night and required straight catheterization but reports that he has voiding spontaneously now. Patient is encouraged to ambulate and wewill hold on advancing his diet further until he exhibits return of bowel function. Charges/Coding Visit Charges Inpatient E&M: 94557 Subs Hosp L2 01/12/24 1201 <Electronically signed by Ricco García MD> Cosigner Signature (if applicable): CC: ~ Signed [facility] Work Phone: 1([phone] 103-960703-17-2024 Progress note Author Ricco García [facility] January 12, 2024 12:01pm Note Date/Time January 12, 2024 9:0 7am [facility] Medical Records Department [address] [place] [address] Progress Note - Surgery 01/12/24 0907 MR#: [id number] Acct: [id number] Name: TERRIE ALLEN Rep #:[id number] : 1980 43 From: Ricco Sierra PCP: Dr. Marcellus Oakes MD Status: ADM IN [id number] Subjective Patient seen and examined during AM rounds. He is found resting in bed. He states that he had some pain when getting up to use the bathroom this morning. This led to some nausea but generally has not had nausea in response to his liquid intake. He also confirms that he is now urinating following a straight catheterization last evening after experiencing retention. He denies any returnof bowel function with gas. He is ambulating regularly. Objective Data Objective Data Vital Signs: Vital Signs Temp Pulse Resp BP Pulse Ox O2 Del Method 98.8 F 98 12 100/61 97 Room Air 01/12/24 08:10 01/12/24 08:10 01/12/24 08:10 01/12/24 08:10 01/12/24 08:10 01/12/24 08:10 Oxygen Delivery Method Room Air Weight: 216 lb 14.958 oz Body Mass Index (BMI) 27.1 Intake & Output: Intake and Output for Last 24 Hours 01/10/24 01/11/24 01/12/24 23:59 23:59 23:59 Intake Total 2906.25 / 3306.25 1395.83 / 1395.83 Output Total 750 / 750 200 / 200 Balance 2156.25 / 2556.25 1195.83 / 1195.83 Lab / Micro Data 01/12/24 05:38 01/12/24 05:38 Labs: Laboratory Results - last 24 hr 01/11/24 14:15: WBC 13.7 H, RBC 4.98, Hgb 13.9, Hct 42.9, MCV 86.1, MCH 27.9, MCHC 32.4, RDW Std Deviation 38.5, RDW Coeff of Khadijah 12.3, Plt Count 250, MPV 9.8, Immature Gran % (Auto) 0.400, Neut % (Auto) 80.3 H, Lymph % (Auto) 9.2 L, Butts % (Auto) 9.6, Eos % (Auto) 0.1, Baso % (Auto) 0.4, Absolute Neuts (auto) 11.0 H, Absolute Lymphs (auto) 1.26, Nucleated RBC % 0, Sodium 139, Potassium 3.8, Chloride 109 H, Carbon Dioxide 26.0, Anion Gap 4 L, BUN 14, Creatinine 1.13, Estim Creat Clear Calc 103.49, Est GFR (MDRD) Af Amer 91, Est GFR (MDRD) Non-Af 75, BUN/Creatinine Ratio 12.4, Glucose 137 H, Calcium 8.3 L, Phosphorus 2.7, Magnesium 1.7 01/12/24 05:38: WBC 12.7 H, RBC 4.68, Hgb 13.4, Hct 41.0, MCV 87.6, MCH 28.6, MCHC 32.7, RDW Std Deviation 39.4, RDW Coeff of Khadijah 12.4, Plt Count 217, MPV 10.7, Immature Gran % (Auto) 0.300, Neut % (Auto) 77.8 H, Lymph % (Auto) 9.2 L, Butts % (Auto) 11.7 H, Eos % (Auto) 0.7, Baso % (Auto) 0.3, Absolute Neuts (auto)9.9 H, Absolute Lymphs (auto) 1.16, Nucleated RBC % 0, Sodium 138, Potassium 3.7, Chloride 108 H, Carbon Dioxide 26.0, Anion Gap 4 L, BUN 13, Creatinine 1.11, Estim Creat Clear Calc 105.35, Est GFR (MDRD) Af Amer 93, Est GFR (MDRD) Non-Af 77, BUN/Creatinine Ratio 11.7, Glucose 105, Calcium 8.3 L Micro: Microbiology 01/10/24 20:06 Stool Stool Lactoferrin - Final 01/10/24 20:06 Stool Enteric Bacteriology - Final 01/10/24 20:06 Stool Clostridioides difficile (PCR) - Final Physical Exam Const oriented x3 Resp normal respiratory effort GI GI Narrative: Slight distention, operative dressings remain intact and are clean and dry?when removed the port sites remain covered with Steri-Strips. Patient's main incision remains covered with operative dressing. Patient has some tenderness about the incision sites with palpation. Assessment & Plan Assessment/Plan (1) Ileocolic intussusception: PLAN: Patient is a 43-year-old, otherwise healthy, male who presents with a 1 month history of frequent bowel movements, lower crampy abdominal pain, and hematochezia today. CT imaging is consistent with ileocolic intussusception. He is postoperative day 1 from hand-assisted laparoscopic right hemicolectomy. He is still experiencing some postoperative pain but appears to be tolerating a liquid diet. We continue to await return of bowel function. He had some urinary retention last night and required straight catheterization but reports that he has voiding spontaneously now. Patient is encouraged to ambulate and wewill hold on advancing his diet further until he exhibits return of bowel function. Charges/Coding Visit Charges Inpatient E&M: 57500 Subs Hosp L2 01/12/24 1201 <Electronically signed by Ricco Garcaí MD> Analiigner Signature (if applicable): CC: ~ Signed [facility] Work Phone: [phone]) 426-516003-16-2024 History and physical note Author Ricco García [facility] January 10, 2024 11:54pm Note Date/Time January 10, 2024 11: 46pm [facility] Medical Records Department [address] [place] [address] History & Physical Exam 01/10/24 2342 MR#: [id number] Acct: [id number] Name: TERRIE ALLEN Rep #:[id number] : 1980 43 From: Ricco Sierra PCP: Dr. Marcellus Oakes MD Status: ADM IN Location: [facility] A-2 HPI - General General Date of Admission: 01/10/24 Date of Service: 01/10/24 Chief Complaint: Abdominal pain with bloody bowel movements HPI Narrative TERRIE ALLEN, is a 43 M who presents to [facility] with complaints of lower abdominal pain and diarrhea for the last month that became associated with bright red blood per rectum this afternoon. Patient states thathe has experienced this pain and up to 5 bowel movements per day since approximately presents today last month. He was seen by his primary care provider and underwent a limited workup before he was told to begin daily MiraLAX to try to stimulate intestinal absorption. Mr. Allen states that he had some good days and some bad days but his symptoms never truly went away. Then today at approximately 3 PM he had a large amount of bright red blood per rectum and has gone to the bathroom twice more with lesser amounts of bleeding each time. Patient's ER workup is notable for CBC with normal hemoglobin and normal WBC. CT imaging of the abdomen pelvis was performed with IV contrast only and showed "an unusual appearance of the cecum, ascending colon, and transverse colon" withradiology reading "Intussusception of the ileocecal valve extending to the mid transverse colon without severe obstruction or perforation." Mr. Allen has no diagnoses at baseline but does share that he was evaluated fordiarrhea and malabsorptive diagnoses approximately 20 years ago with multiple endoscopy sessions. He was ultimately diagnosed with irritable bowel syndrome and instructed to watch his diet. He shares that he thus adopted a very bland diet. Patient's past surgical history is inclusive only of a open left inguinal herniarepair with mesh done in [facility] less than 2 years ago. Patient has a family history of colon cancer recently diagnosed and is 75-year-old father who just underwent surgery for this issue. PFSH Allergy/AdvReac Type Severity Reaction Status Date / Time No Known Allergies Allergy Verified 01/10/24 18:12 Surgical History H/O hernia repair Social History Smoking Status: Never smoker Vital Signs Vital Signs Vital Signs: 01/10/24 18:10 01/10/24 19:38 01/10/24 21:00 Temperature 98.4 F Temperature Source Temporal Pulse Rate 73 75 67 Respiratory Rate 17 14 16 Blood Pressure 147/85 H 112/71 116/72 Blood Pressure Mean 105 84 86 Blood Pressure Source Blood Pressure Position Blood Pressure Location Pulse Ox 100 98 99 Oxygen Delivery Method Room Air Room Air Room Air 01/10/24 23:00 01/10/24 23:28 Temperature 98 F Temperature Source Oral Pulse Rate 76 68 Respiratory Rate 16 16 Blood Pressure 142/88 H 138/79 H Blood Pressure Mean 106 98 Blood Pressure Source Monitor Blood Pressure Position Semi-Fowlers Blood Pressure Location Right Arm Pulse Ox 99 99 Oxygen Delivery Method Room Air Room Air Weight Weight: 216 lb 14.958 oz Body Mass Index (BMI) 27.1 Physical Exam Const alert, oriented x3 and no apparent distress General Appearance: cooperative Resp normal respiratory effort GI GI Narrative: No visible scars, nondistended, slender, soft, minimally tender to palpation particularly in the midline infraumbilical region Results Lab / Micro Data 01/10/24 19:32 01/10/24 19:32 Labs: Laboratory Results - last 24 hr 01/10/24 19:32: WBC 9.5, RBC 5.64, Hgb 15.8, Hct 47.5, MCV 84.2, MCH 28.0, MCHC 33.3, RDW Std Deviation 36.4, RDW Coeff of Khadijah 12.0, Plt Count 290, MPV 10.2, Immature Gran % (Auto) 0.400, Neut % (Auto) 61.6, Lymph % (Auto) 21.0, Butts % (Auto) 11.4 H, Eos % (Auto) 4.5, Baso % (Auto) 1.1 H, Absolute Neuts (auto) 5.8,Absolute Lymphs (auto) 1.99, Nucleated RBC % 0, Sodium 141, Potassium 3.8, Chloride 107, Carbon Dioxide 30.0, Anion Gap 4 L, BUN 18, Creatinine 1.10, EstimCreat Clear Calc 103.49, Est GFR (MDRD) Af Amer 94, Est GFR (MDRD) Non-Af 77, BUN/Creatinine Ratio 16.4, Glucose 108 H, Calcium 9.6, Total Bilirubin 1.70 H, AST 20, ALT 34, Alkaline Phosphatase 90, Total Protein 7.5, Albumin 4.1, Globulin 3.4, Albumin/Globulin Ratio 1.2 01/10/24 22:50: Lactic Acid 1.1 Micro: Microbiology 01/10/24 20:06 Stool Stool Lactoferrin - Final 01/10/24 20:06 Stool Clostridioides difficile (PCR) - Final Imaging Radiology Impression Abdomen/Pelvis CT 01/10/24 20:42 IMPRESSION: Intussusception of the ileocecal valve extending to the mid transverse colon without severe obstruction or perforation. Electronically Signed: Chidi Carvajal MD at 21:46 EDT , ADDENDUM: 01/10/24 IMPRESSION: Intussusception of the ileocecal valve extending to the mid transverse colon without severe obstruction or perforation. N.B. : Kevin York DO, confirmed on 01/10/2024 21:57:25 (ET) that the referring physician received the results and does not require a verbal communication. Electronically Signed: Chidi Carvajal MD at 21:46 EDT , Assessment & Plan Assessment/Plan (1) Ileocolic intussusception: PLAN: Patient is a 43-year-old, otherwise healthy, male who presents with a 1 month history of frequent bowel movements, lower crampy abdominal pain, and hematochezia today. CT imaging is consistent with ileocolic intussusception. Ihave been careful to explain to him and his spouse that this represents a rare event but there are several favorable features of Mr. Allen's case?including his remarkable clinical stability, normal labs, and reassuring exam. Still, I have used patient's CT imaging to explain that I would recommend proceeding emergently for diagnostic laparoscopy versus exploratory laparotomy and probable bowel resection to avoid further bowel ischemia and risk for bowel perforation. and Mrs. Allen have a number of questions but ultimately Mr. Allen states that he understands the need to proceed emergently and provides his verbal consent to proceed as recommended. The operating room has been notified and we will look to have patient consented as above given that there are some unknowns prior to going to the operating room. Charges/Coding Visit Charges Inpatient E&M: 94881 Init Hosp L2 01/10/24 7233 <Electronically signed by Ricco García MD> Cosigner Signature (if applicable): CC: Dr. Marcellus Oakes MD; Dr. Ricco García MD~ Signed [facility] Work Phone: [phone]) 993-979203-16-2024 History and physical note Author Ricco García [facility] January 10, 2024 11:54pm Note Date/Time January 10, 2024 11: 46pm [facility] Medical Records Department [address] [place] [address] History & Physical Exam 01/10/24 2342 MR#: [id number] Acct: [id number] Name: TERRIE ALLEN Rep #:[id number] : 1980 43 From: Ricco Sierra PCP: Dr. Marcellus Oakes MD Status: ADM IN Location: [facility] A2 HPI - General General Date of Admission: 01/10/24 Date of Service: 01/10/24 Chief Complaint: Abdominal pain with bloody bowel movements HPI Narrative TERRIE ALLEN, is a 43 M who presents to [facility] with complaints of lower abdominal pain and diarrhea for the last month that became associated with bright red blood per rectum this afternoon. Patient states thathe has experienced this pain and up to 5 bowel movements per day since approximately presents today last month. He was seen by his primary care provider and underwent a limited workup before he was told to begin daily MiraLAX to try to stimulate intestinal absorption. Mr. Allen states that he had some good days and some bad days but his symptoms never truly went away. Then today at approximately 3 PM he had a large amount of bright red blood per rectum and has gone to the bathroom twice more with lesser amounts of bleeding each time. Patient's ER workup is notable for CBC with normal hemoglobin and normal WBC. CT imaging of the abdomen pelvis was performed with IV contrast only and showed "an unusual appearance of the cecum, ascending colon, and transverse colon" withradiology reading "Intussusception of the ileocecal valve extending to the mid transverse colon without severe obstruction or perforation." Mr. Allen has no diagnoses at baseline but does share that he was evaluated fordiarrhea and malabsorptive diagnoses approximately 20 years ago with multiple endoscopy sessions. He was ultimately diagnosed with irritable bowel syndrome and instructed to watch his diet. He shares that he thus adopted a very bland diet. Patient's past surgical history is inclusive only of a open left inguinal herniarepair with mesh done in [facility] less than 2 years ago. Patient has a family history of colon cancer recently diagnosed and is 75-year-old father who just underwent surgery for this issue. PFSH Allergy/AdvReac Type Severity Reaction Status Date / Time No Known Allergies Allergy Verified 01/10/24 18:12 Surgical History H/O hernia repair Social History Smoking Status: Never smoker Vital Signs Vital Signs Vital Signs: 01/10/24 18:10 01/10/24 19:38 01/10/24 21:00 Temperature 98.4 F Temperature Source Temporal Pulse Rate 73 75 67 Respiratory Rate 17 14 16 Blood Pressure 147/85 H 112/71 116/72 Blood Pressure Mean 105 84 86 Blood Pressure Source Blood Pressure Position Blood Pressure Location Pulse Ox 100 98 99 Oxygen Delivery Method Room Air Room Air Room Air 01/10/24 23:00 01/10/24 23:28 Temperature 98 F Temperature Source Oral Pulse Rate 76 68 Respiratory Rate 16 16 Blood Pressure 142/88 H 138/79 H Blood Pressure Mean 106 98 Blood Pressure Source Monitor Blood Pressure Position Semi-Fowlers Blood Pressure Location Right Arm Pulse Ox 99 99 Oxygen Delivery Method Room Air Room Air Weight Weight: 216 lb 14.958 oz Body Mass Index (BMI) 27.1 Physical Exam Const alert, oriented x3 and no apparent distress General Appearance: cooperative Resp normal respiratory effort GI GI Narrative: No visible scars, nondistended, slender, soft, minimally tender to palpation particularly in the midline infraumbilical region Results Lab / Micro Data 01/10/24 19:32 01/10/24 19:32 Labs: Laboratory Results - last 24 hr 01/10/24 19:32: WBC 9.5, RBC 5.64, Hgb 15.8, Hct 47.5, MCV 84.2, MCH 28.0, MCHC 33.3, RDW Std Deviation 36.4, RDW Coeff of Khadijah 12.0, Plt Count 290, MPV 10.2, Immature Gran % (Auto) 0.400, Neut % (Auto) 61.6, Lymph % (Auto) 21.0, Butts % (Auto) 11.4 H, Eos % (Auto) 4.5, Baso % (Auto) 1.1 H, Absolute Neuts (auto) 5.8,Absolute Lymphs (auto) 1.99, Nucleated RBC % 0, Sodium 141, Potassium 3.8, Chloride 107, Carbon Dioxide 30.0, Anion Gap 4 L, BUN 18, Creatinine 1.10, EstimCreat Clear Calc 103.49, Est GFR (MDRD) Af Amer 94, Est GFR (MDRD) Non-Af 77, BUN/Creatinine Ratio 16.4, Glucose 108 H, Calcium 9.6, Total Bilirubin 1.70 H, AST 20, ALT 34, Alkaline Phosphatase 90, Total Protein 7.5, Albumin 4.1, Globulin 3.4, Albumin/Globulin Ratio 1.2 01/10/24 22:50: Lactic Acid 1.1 Micro: Microbiology 01/10/24 20:06 Stool Stool Lactoferrin - Final 01/10/24 20:06 Stool Clostridioides difficile (PCR) - Final Imaging Radiology Impression Abdomen/Pelvis CT 01/10/24 20:42 IMPRESSION: Intussusception of the ileocecal valve extending to the mid transverse colon without severe obstruction or perforation. Electronically Signed: Chidi Carvajal MD at 21:46 EDT , ADDENDUM: 01/10/24 2204 IMPRESSION: Intussusception of the ileocecal valve extending to the mid transverse colon without severe obstruction or perforation. N.B. : Kevin York DO, confirmed on 01/10/2024 21:57:25 (ET) that the referring physician received the results and does not require a verbal communication. Electronically Signed: Chidi Carvajal MD at 21:46 EDT , Assessment & Plan Assessment/Plan (1) Ileocolic intussusception: PLAN: Patient is a 43-year-old, otherwise healthy, male who presents with a 1 month history of frequent bowel movements, lower crampy abdominal pain, and hematochezia today. CT imaging is consistent with ileocolic intussusception. Ihave been careful to explain to him and his spouse that this represents a rare event but there are several favorable features of Mr. Allen's case?including his remarkable clinical stability, normal labs, and reassuring exam. Still, I have used patient's CT imaging to explain that I would recommend proceeding emergently for diagnostic laparoscopy versus exploratory laparotomy and probable bowel resection to avoid further bowel ischemia and risk for bowel perforation. and Mrs. Allen have a number of questions but ultimately Mr. Allen states that he understands the need to proceed emergently and provides his verbal consent to proceed as recommended. The operating room has been notified and we will look to have patient consented as above given that there are some unknowns prior to going to the operating room. Charges/Coding Visit Charges Inpatient E&M: 58605 Init Hosp L2 01/10/24 9128 <Electronically signed by Ricco García MD> Cosigner Signature (if applicable): CC: Dr. Marcellus Oakes MD; Dr. Ricco García MD~ Signed [facility] Work Phone: 1(216) 623-713003-16-2024 Discharge summary Author Kylah Bejarano [facility] January 10, 2024 11:42pm Note Date/Time January 10, 2024 10: 04pm [facility] Medical Records Department [address] [place] [address] Emergency Department Summary 01/10/24 MR#: [id number] Acct: [id number] Name: TERRIE ALLEN Rep #:[id number] : 1980 43 From: Kevin York DO PCP: Dr. Marcellus Oakes MD Status: REG ER Location: ED HPI HPI - GI History of Present Illness Chief Complaint: GI Bleed Narrative Narrative: 43-year-old male with abdominal pain. He states has been ongoing for couple of months. He describes it as intermittent. He states that when he wakes up in the morning is usually pain-free until he has a bowel movement. He then experiences pain throughout the day. He is presenting today as he had some bright red blood in his stool. He states he has seen his PCP for this and has had lab work done. He states he had an x-ray of his abdomen performed as well. Patient has never had a colonoscopy. He is not had any Cologuard testing. He has not had a CT of the abdomen pelvis. He is not having any fevers or chills. He is not on any blood thinners. Patient denies any abdominal surgeries in the past. He has not had any significant weight loss. PFSH PFSH Home Medications benzonatate 100 mg capsule 100 mg PO TID PRN cough #20 caps 09/10/21 [Rx Last Taken Unknown] ondansetron 4 mg disintegrating tablet 4 mg PO Q8H PRN PRN Nausea #20 tabs 09/10/21 [Rx Last Taken Unknown] Allergy/AdvReac Type Severity Reaction Status Date / Time No Known Allergies Allergy Verified 01/10/24 18:12 Surgical History H/O hernia repair Social History Smoking Status: Never smoker ROS ROS ED Constitutional Constitutional ED: Denies chills, fever(s) or sweats Eyes Eyes: Denies blurry vision or change in vision ENT ENT ED: Denies ear pain or sore throat Cardiovascular Cardiovascular: Denies chest pain, palpitations or racing heartbeat Respiratory/Chest Respiratory/Chest: Denies cough, dyspnea or sputum Gastrointestinal Gastrointestinal: Reports abdominal pain and other Details: Bright red bleeding per rectum ; Denies constipation, diarrhea, nausea or vomiting Genitourinary Genitourinary ED: Denies dysuria, hematuria or urinary frequency Musculoskeletal Musculoskeletal: Denies arthralgias, myalgias or neck pain Integumentary Denies abscess, Abrasions or rash Neurologic Neurologic: Denies headache(s), paresthesias or weakness Psychiatric Psychiatric: Denies anxiety, depression, suicidal ideation or suicidal thoughts Endocrine Endocrinology: Denies polydipsia or polyuria EXAM Physical Exam Const Vital Signs: 01/10/24 18:10 01/10/24 19:38 01/10/24 21:00 Temperature 98.4 F Temperature Source Temporal Pulse Rate 73 75 67 Respiratory Rate 17 14 16 Blood Pressure 147/85 H 112/71 116/72 Blood Pressure Mean 105 84 86 Pulse Ox 100 98 99 Oxygen Delivery Method Room Air Room Air Room Air Positive well nourished General Appearance ED: NAD HEENT Reports moist mucous membranes normocephalic and atraumatic Eyes PERRL and EOMs intact bilaterally Resp normal respiratory effort Cardio regular rate and regular rhythm GI non-tender and non-distended Palpation: soft Neuro CN's II-XII intact bilaterally Sensorium / Orientation: alert Motor Exam: strength 5/5 throughout Psych mental status grossly normal MDM MDM MDM Narrative Medical decision making narrative: Patient presenting with intermittent abdominal pain and now experiencing blood in stool. Differential includes colitis, diverticulitis, dehydration, anemia, malignancy, intussusception. Patient currently not experiencing significant pain. CBC was obtained to assess white blood cell count, hemoglobin,. CMP to assess liver function, renal function, electrolytes.. CBC and CMP ultimately unremarkable with exception of a total bilirubin of 1.7. There was protocol orders put in for the patient on arrival lateral for stool studies which are pending. CT of the abdomen pelvis was performed and shows intussusception of the ileocecal valve extending into the mid transverse colon. General surgery was called. The patient. Patient kept NPO. Dr. García requested a lactic acid be ordered. Patient counseled on findings. Impression: 1. Abdominal pain 2. Intussusception 3. Lower GI bleed Lab Data Attestation: I reviewed the patient's lab results. Labs: Laboratory Results - last 24 hr 01/10/24 19:32 WBC 9.5 RBC 5.64 Hgb 15.8 Hct 47.5 MCV 84.2 MCH 28.0 MCHC 33.3 RDW Std Deviation 36.4 RDW Coeff of Khadijah 12.0 Plt Count 290 MPV 10.2 Immature Gran % (Auto) 0.400 Neut % (Auto) 61.6 Lymph % (Auto) 21.0 Butts % (Auto) 11.4 H Eos % (Auto) 4.5 Baso % (Auto) 1.1 H Absolute Neuts (auto) 5.8 Absolute Lymphs (auto) 1.99 Nucleated RBC % 0 Sodium 141 Potassium 3.8 Chloride 107 Carbon Dioxide 30.0 Anion Gap 4 L BUN 18 Creatinine 1.10 Estim Creat Clear Calc 103.49 Est GFR (MDRD) Af Amer 94 Est GFR (MDRD) Non-Af 77 BUN/Creatinine Ratio 16.4 Glucose 108 H Calcium 9.6 Total Bilirubin 1.70 H AST 20 ALT 34 Alkaline Phosphatase 90 Total Protein 7.5 Albumin 4.1 Globulin 3.4 Albumin/Globulin Ratio 1.2 Radiography Diagnostic Testing: Clinical Impression(s) from Imaging Studies Abdomen/Pelvis CT 01/10/24 20:42 IMPRESSION: Intussusception of the ileocecal valve extending to the mid transverse colon without severe obstruction or perforation. Electronically Signed: Chidi Carvajal MD at 21:46 EDT , ADDENDUM: 01/10/24 2030 IMPRESSION: Intussusception of the ileocecal valve extending to the mid transverse colon without severe obstruction or perforation. N.B. : Kevin York DO, confirmed on 01/10/2024 21:57:25 (ET) that the referring physician received the results and does not require a verbal communication. Electronically Signed: Chidi Carvajal MD at 21:46 EDT , Discharge Plan Triage Chief Complaint: GI Bleed ED Provider: Kevin York Dx/Rx/DC Orders Prescriptions: No Action ondansetron 4 mg tablet,disintegrating 4 mg PO Q8H PRN PRN (Reason: Nausea) Qty: 20 0RF benzonatate 100 mg capsule 100 mg PO TID PRN (Reason: cough) Qty: 20 0RF Primary Care Provider: Marcellus Oakes Referrals: Marcellus Oakes MD [Primary Care Provider] - What to do if you have Problems For any increased pain, shortness of breath, bleeding, nausea or vomiting, chestpain, or any unexpected problems, contact your Primary Care Provider. Call [facility] ([phone]) or report to the closest Emergency Room. Call 911 if necessary. 01/10/240 <Electronically signed by Kevin York DO> Cosigner Signature (if applicable): CC: Dr. Marcellus Oakes MD ~ Signed ADDENDUM by Dr. Kylah Bejarano MD on 01/10/24 at 2342 Patient signed out to me pending evaluation by Dr. García. Dr. García saw and evaluated the patient. He will be taken the patient to the OR and admitting patient to the floor following procedure. 01/10/24 2342<Electronically signed by Kylah Bejarano MD> Cosigner Signature (if applicable): cc: Dr. Marcellus Oakes MD ~* Signed [facility] Work Phone: 1(161) 250-574303-16-2024 Discharge summary Author Kylah Bejarano [facility] January 10, 2024 11:42pm Note Date/Time January 10, 2024 10: 04pm [facility] Medical Records Department [address] [place] [address] [place] [address] Emergency Department Summary 01/10/24 MR#: [id number] Acct: [id number] Name: TERRIE ALLEN Rep #:[id number] : 1980 43 From: Kevin York DO PCP: Dr. Marcellus Oakes MD Status: REG ER Location: ED HPI HPI - GI History of Present Illness Chief Complaint: GI Bleed Narrative Narrative: 43-year-old male with abdominal pain. He states has been ongoing for couple of months. He describes it as intermittent. He states that when he wakes up in the morning is usually pain-free until he has a bowel movement. He then experiences pain throughout the day. He is presenting today as he had some bright red blood in his stool. He states he has seen his PCP for this and has had lab work done. He states he had an x-ray of his abdomen performed as well. Patient has never had a colonoscopy. He is not had any Cologuard testing. He has not had a CT of the abdomen pelvis. He is not having any fevers or chills. He is not on any blood thinners. Patient denies any abdominal surgeries in the past. He has not had any significant weight loss. PFSH PFSH Home Medications benzonatate 100 mg capsule 100 mg PO TID PRN cough #20 caps 09/10/21 [Rx Last Taken Unknown] ondansetron 4 mg disintegrating tablet 4 mg PO Q8H PRN PRN Nausea #20 tabs 09/10/21 [Rx Last Taken Unknown] Allergy/AdvReac Type Severity Reaction Status Date / Time No Known Allergies Allergy Verified 01/10/24 18:12 Surgical History H/O hernia repair Social History Smoking Status: Never smoker ROS ROS ED Constitutional Constitutional ED: Denies chills, fever(s) or sweats Eyes Eyes: Denies blurry vision or change in vision ENT ENT ED: Denies ear pain or sore throat Cardiovascular Cardiovascular: Denies chest pain, palpitations or racing heartbeat Respiratory/Chest Respiratory/Chest: Denies cough, dyspnea or sputum Gastrointestinal Gastrointestinal: Reports abdominal pain and other Details: Bright red bleeding per rectum ; Denies constipation, diarrhea, nausea or vomiting Genitourinary Genitourinary ED: Denies dysuria, hematuria or urinary frequency Musculoskeletal Musculoskeletal: Denies arthralgias, myalgias or neck pain Integumentary Denies abscess, Abrasions or rash Neurologic Neurologic: Denies headache(s), paresthesias or weakness Psychiatric Psychiatric: Denies anxiety, depression, suicidal ideation or suicidal thoughts Endocrine Endocrinology: Denies polydipsia or polyuria EXAM Physical Exam Const Vital Signs: 01/10/24 18:10 01/10/24 19:38 01/10/24 21:00 Temperature 98.4 F Temperature Source Temporal Pulse Rate 73 75 67 Respiratory Rate 17 14 16 Blood Pressure 147/85 H 112/71 116/72 Blood Pressure Mean 105 84 86 Pulse Ox 100 98 99 Oxygen Delivery Method Room Air Room Air Room Air Positive well nourished General Appearance ED: NAD HEENT Reports moist mucous membranes normocephalic and atraumatic Eyes PERRL and EOMs intact bilaterally Resp normal respiratory effort Cardio regular rate and regular rhythm GI non-tender and non-distended Palpation: soft Neuro CN's II-XII intact bilaterally Sensorium / Orientation: alert Motor Exam: strength 5/5 throughout Psych mental status grossly normal MDM MDM MDM Narrative Medical decision making narrative: Patient presenting with intermittent abdominal pain and now experiencing blood in stool. Differential includes colitis, diverticulitis, dehydration, anemia, malignancy, intussusception. Patient currently not experiencing significant pain. CBC was obtained to assess white blood cell count, hemoglobin,. CMP to assess liver function, renal function, electrolytes.. CBC and CMP ultimately unremarkable with exception of a total bilirubin of 1.7. There was protocol orders put in for the patient on arrival lateral for stool studies which are pending. CT of the abdomen pelvis was performed and shows intussusception of the ileocecal valve extending into the mid transverse colon. General surgery was called. The patient. Patient kept NPO. Dr. García requested a lactic acid be ordered. Patient counseled on findings. Impression: 1. Abdominal pain 2. Intussusception 3. Lower GI bleed Lab Data Attestation: I reviewed the patient's lab results. Labs: Laboratory Results - last 24 hr 01/10/24 19:32 WBC 9.5 RBC 5.64 Hgb 15.8 Hct 47.5 MCV 84.2 MCH 28.0 MCHC 33.3 RDW Std Deviation 36.4 RDW Coeff of Khadijah 12.0 Plt Count 290 MPV 10.2 Immature Gran % (Auto) 0.400 Neut % (Auto) 61.6 Lymph % (Auto) 21.0 Butts % (Auto) 11.4 H Eos % (Auto) 4.5 Baso % (Auto) 1.1 H Absolute Neuts (auto) 5.8 Absolute Lymphs (auto) 1.99 Nucleated RBC % 0 Sodium 141 Potassium 3.8 Chloride 107 Carbon Dioxide 30.0 Anion Gap 4 L BUN 18 Creatinine 1.10 Estim Creat Clear Calc 103.49 Est GFR (MDRD) Af Amer 94 Est GFR (MDRD) Non-Af 77 BUN/Creatinine Ratio 16.4 Glucose 108 H Calcium 9.6 Total Bilirubin 1.70 H AST 20 ALT 34 Alkaline Phosphatase 90 Total Protein 7.5 Albumin 4.1 Globulin 3.4 Albumin/Globulin Ratio 1.2 Radiography Diagnostic Testing: Clinical Impression(s) from Imaging Studies Abdomen/Pelvis CT 01/10/24 20:42 IMPRESSION: Intussusception of the ileocecal valve extending to the mid transverse colon without severe obstruction or perforation. Electronically Signed: Chidi Carvajal MD at 21:46 EDT Reading Location ID and State: [id number] / [facility] Tel , Service support , ADDENDUM: 01/10/242203 IMPRESSION: Intussusception of the ileocecal valve extending to the mid transverse colon without severe obstruction or perforation. N.B. : Kevin York DO, confirmed on 01/10/2024 21:57:25 (ET) that the referring physician received the results and does not require a verbal communication. Electronically Signed: Chidi Carvajal MD at 21:46 EDT , Discharge Plan Triage Chief Complaint: GI Bleed ED Provider: Kevin York Dx/Rx/DC Orders Prescriptions: No Action ondansetron 4 mg tablet,disintegrating 4 mg PO Q8H PRN PRN (Reason: Nausea) Qty: 20 0RF benzonatate 100 mg capsule 100 mg PO TID PRN (Reason: cough) Qty: 20 0RF Primary Care Provider: Marcellus Oakes Referrals: Marcellus Oakes MD [Primary Care Provider] - What to do if you have Problems For any increased pain, shortness of breath, bleeding, nausea or vomiting, chestpain, or any unexpected problems, contact your Primary Care Provider. Call [facility] ([phone]) or report to the closest Emergency Room. Call 911 if necessary. 01/10/242229 <Electronically signed by Kevin York DO> Cosigner Signature (if applicable): CC: Dr. Marcellus Oakes MD ~ Signed ADDENDUM by Dr. Kylah Bejarano MD on 01/10/24 at 2342 Patient signed out to me pending evaluation by Dr. García. Dr. García saw and evaluated the patient. He will be taken the patient to the OR and admitting patient to the floor following procedure. 01/10/242<Electronically signed by Kylah Bejarano MD> Cosigner Signature (if applicable): cc: Dr. Marcellus Oakes MD ~* Signed [facility] Work Phone: 1([phone]) 891-740107-07-2022 NotePROCEDURE DETAILS Preoperative Diagnosis: Unil inguinal hernia, w/o obst or gangr, not spcf as recur, K40.90 Postoperative Diagnosis: Unil inguinal hernia, w/o obst or gangr, not spcf as recur, K40.90 Surgeon: Tony Saleh Resident/Fellow/Other [employer]: None of these were associated with this [...] bleeding, infection, reaction to the anesthetic, stroke, [place] and/or . We also discussed the fact [...] inguinal region was locally anesthetized with a dirw-sal-vfsu solution of 0.25% Marcaine and 1% lidocaine. Inguinal incision was made and carried through the skin subcutaneous tissues and Sanjuana's fascia. A subfascial injection was also done. The external oblique was divided along the course of its fibers to the internal inguinal ring. Superior and inferior leaflets were raised and the cord mobilized at the pubic tubercle and placed on a [place] drain. The cremasteric fibers were split and [...] the procedure without a resident Electronic Signatures: Tony Saleh) (Signed 03-May-2022 14:02) Authored: Post-Operative Note, Chart Review, Note Completion Last Updated: 03-May-2022 14:02 by Tony Saleh)[facility] 05-03-2022 NoteHistory & Physical Reviewed: I have reviewed the History and Physical [...] COVID-19 what the risks are. Electronic Signatures: Tony Saleh) (Signed 03-May-2022 12:22) Authored: History & Physical Reviewed, ERAS, Consent, Note Completion Last Updated: 03-May-2022 12:22 by Tony Saleh)[facility] 04-01-2022 History of Present illness NarrativePatient is seen for evaluation of left groin pain and bulge. He states approximately 3 weeks ago hefelt something pop in his left groin and had discomfort. Over the last 5 days he has developed a bulge. It is reducible.[facility] Work Phone: evaluation noteNo assessment information available [facility] Work Phone: Evaluation note* Diagnosis Onset Date Resolution Status Ileocolic intussusception ac red devil [facility] Work Phone: Evaluation note* Diagnosis Onset Date Resolution Status Ileocolic intussusception ac red devil [id number] acute [facility] Work Phone: Evaluation note* Diagnosis Onset Date Resolution Status Ileocolic intussusception ac red devil [id number] acute Abscess, intra-abdominal, postoperative acute Sepsis without acute organ dysfunction acute Superior mesenteric vein thrombosis acute [facility] Work Phone: Evaluation note* Diagnosis Onset Date Resolution Status Ileocolic intussusception ac red devil [id number] acute Abscess, intra-abdominal, postoperative acute Ileocolic intussusception ac red devil Ileus acute [id number] acute S/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 Sepsis without acute organ dysfunction resolved [facility] Work Phone: Evaluation note* Diagnosis Onset Date Resolution Status [id number] acute Ileocolic intussusception re solved Abscess, intra-abdominal, postoperative acute Ileus acute [id number] acute S/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 Ileocolic intussusception re solved Sepsis without acute organ dysfunction resolved [facility] Work Phone: Evaluation note* Diagnosis Open wound of anterior abdominal wall, sequela- Primary S/P exploratory laparotomy Other postprocedural status Intraperitoneal abscess (HCC) Peritoneal abscess S/P partial resection of colon Other postprocedural status [facility] [place] [facility] Diagnosis Onset Date Resolution Status [id number] acute Ileocolic intussusception re solved Abscess, intra-abdominal, postoperative acute Ileus acute [id number] acute S/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 Ileocolic intussusception re solved Sepsis without acute organ dysfunction resolved Anterior abdomen avulsion ac red devil BMI 26.0-26.9,adult acute History of abdominal abscess acute History of open reduction an d internal fixation (ORIF) procedure acute [id number] acute Nonhealing surgical wound ac red devil S/P exploratory laparotomy a cute Status post right hemicolectomy acute [facility] Work Phone: Evaluation note* Diagnosis 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 note* Diagnosis Infection in abdomen (HCC) Unspecified peritonitis documented in this encounter 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 [place] [facility] Diagnosis Onychocryptosis- Primary Ingrowing nail Onychodystrophy Other specified disease of nail Hammertoe of second toe of left foot [facility] Diagnosis Onychocryptosis- Primary Ingrowing nail Onychodystrophy Other specified disease of nail Toe pain, left Pain in soft tissues of limb [facility]* Diagnosis Onychocryptosis- Primary Ingrowing nail Toe pain, left Pain in soft tissues of limb [facility] Author Ricco García [facility] January 10, 2024 11:54pm Note Date/Time January 10, 2024 11: 46pm [facility] Medical Records Department [address] [place] [address] History & Physical Exam 01/10/24 2342 MR#: [id number] Acct: [id number] Name: TERRIE ALLEN Rep #:[id number] : 1980 43 From: Ricco Sierra PCP: Dr. Marcellus Oakes MD Status: ADM IN Location: [facility] A-2 HPI - General General Date of Admission: 01/10/24 Date of Service: 01/10/24 Chief Complaint: Abdominal pain with bloody bowel movements HPI Narrative TERRIE ALLEN, is a 43 M who presents to [facility] with complaints of lower abdominal pain and diarrhea for the last month that became associated with bright red blood per rectum this afternoon. Patient states thathe has experienced this pain and up to 5 bowel movements per day since approximately presents today last month. He was seen by his primary care provider and underwent a limited workup before he was told to begin daily MiraLAX to try to stimulate intestinal absorption. Mr. Allen states that he had some good days and some bad days but his symptoms never truly went away. Then today at approximately 3 PM he had a large amount of bright red blood per rectum and has gone to the bathroom twice more with lesser amounts of bleeding each time. Patient's ER workup is notable for CBC with normal hemoglobin and normal WBC. CT imaging of the abdomen pelvis was performed with IV contrast only and showed "an unusual appearance of the cecum, ascending colon, and transverse colon" withradiology reading "Intussusception of the ileocecal valve extending to the mid transverse colon without severe obstruction or perforation." Mr. Allen has no diagnoses at baseline but does share that he was evaluated fordiarrhea and malabsorptive diagnoses approximately 20 years ago with multiple endoscopy sessions. He was ultimately diagnosed with irritable bowel syndrome and instructed to watch his diet. He shares that he thus adopted a very bland diet. Patient's past surgical history is inclusive only of a open left inguinal herniarepair with mesh done in [facility] less than 2 years ago. Patient has a family history of colon cancer recently diagnosed and is 75-year-old father who just underwent surgery for this issue. PFSH Allergy/AdvReac Type Severity Reaction Status Date / Time No Known Allergies Allergy Verified 01/10/24 18:12 Surgical History H/O hernia repair Social History Smoking Status: Never smoker Vital Signs Vital Signs Vital Signs: 01/10/24 18:10 01/10/24 19:38 01/10/24 21:00 Temperature 98.4 F Temperature Source Temporal Pulse Rate 73 75 67 Respiratory Rate 17 14 16 Blood Pressure 147/85 H 112/71 116/72 Blood Pressure Mean 105 84 86 Blood Pressure Source Blood Pressure Position Blood Pressure Location Pulse Ox 100 98 99 Oxygen Delivery Method Room Air Room Air Room Air 01/10/24 23:00 01/10/24 23:28 Temperature 98 F Temperature Source Oral Pulse Rate 76 68 Respiratory Rate 16 16 Blood Pressure 142/88 H 138/79 H Blood Pressure Mean 106 98 Blood Pressure Source Monitor Blood Pressure Position Semi-Fowlers Blood Pressure Location Right Arm Pulse Ox 99 99 Oxygen Delivery Method Room Air Room Air Weight Weight: 216 lb 14.958 oz Body Mass Index (BMI) 27.1 Physical Exam Const alert, oriented x3 and no apparent distress General Appearance: cooperative Resp normal respiratory effort GI GI Narrative: No visible scars, nondistended, slender, soft, minimally tender to palpation particularly in the midline infraumbilical region Results Lab / Micro Data 01/10/24 19:32 01/10/24 19:32 Labs: Laboratory Results - last 24 hr 01/10/24 19:32: WBC 9.5, RBC 5.64, Hgb 15.8, Hct 47.5, MCV 84.2, MCH 28.0, MCHC 33.3, RDW Std Deviation 36.4, RDW Coeff of Khadijah 12.0, Plt Count 290, MPV 10.2, Immature Gran % (Auto) 0.400, Neut % (Auto) 61.6, Lymph % (Auto) 21.0, Butts % (Auto) 11.4 H, Eos % (Auto) 4.5, Baso % (Auto) 1.1 H, Absolute Neuts (auto) 5.8,Absolute Lymphs (auto) 1.99, Nucleated RBC % 0, Sodium 141, Potassium 3.8, Chloride 107, Carbon Dioxide 30.0, Anion Gap 4 L, BUN 18, Creatinine 1.10, EstimCreat Clear Calc 103.49, Est GFR (MDRD) Af Amer 94, Est GFR (MDRD) Non-Af 77, BUN/Creatinine Ratio 16.4, Glucose 108 H, Calcium 9.6, Total Bilirubin 1.70 H, AST 20, ALT 34, Alkaline Phosphatase 90, Total Protein 7.5, Albumin 4.1, Globulin 3.4, Albumin/Globulin Ratio 1.2 01/10/24 22:50: Lactic Acid 1.1 Micro: Microbiology 01/10/24 20:06 Stool Stool Lactoferrin - Final 01/10/24 20:06 Stool Clostridioides difficile (PCR) - Final Imaging Radiology Impression Abdomen/Pelvis CT 01/10/24 20:42 IMPRESSION: Intussusception of the ileocecal valve extending to the mid transverse colon without severe obstruction or perforation. Electronically Signed: Chidi Carvajal MD at 21:46 EDT , ADDENDUM: 01/10/245 IMPRESSION: Intussusception of the ileocecal valve extending to the mid transverse colon without severe obstruction or perforation. N.B. : Kevin York DO, confirmed on 01/10/2024 21:57:25 (ET) that the referring physician received the results and does not require a verbal communication. Electronically Signed: Chidi Carvajal MD at 21:46 EDT , Assessment & Plan Assessment/Plan (1) Ileocolic intussusception: PLAN: Patient is a 43-year-old, otherwise healthy, male who presents with a 1 month history of frequent bowel movements, lower crampy abdominal pain, and hematochezia today. CT imaging is consistent with ileocolic intussusception. Ihave been careful to explain to him and his spouse that this represents a rare event but there are several favorable features of Mr. Allen's case?including his remarkable clinical stability, normal labs, and reassuring exam. Still, I have used patient's CT imaging to explain that I would recommend proceeding emergently for diagnostic laparoscopy versus exploratory laparotomy and probable bowel resection to avoid further bowel ischemia and risk for bowel perforation. and Mrs. Allen have a number of questions but ultimately Mr. Allen states that he understands the need to proceed emergently and provides his verbal consent to proceed as recommended. The operating room has been notified and we will look to have patient consented as above given that there are some unknowns prior to going to the operating room. Charges/Coding Visit Charges Inpatient E&M: 55996 Init Hosp L2 01/10/24 3358 <Electronically signed by Ricco García MD> Cosigner Signature (if applicable): CC: Dr. Marcellus Oakes MD; Dr. Ricco García MD~ Signed [facility] Work Phone: History of Present illness NarrativePatient is seen in postop follow-up status post inguinal hernia repair. He states the bruising has essentially resolved and he still has some minor swelling. He states he really took no pain medicine. He is still limiting his activity. He states it feels better now than it did preop-[facility] Work Phone: reason for referral (narrative)No reason for referral information availableWACMC Healthcare System Work Phone: Chief Complaint Self ref left [...] diabetes m ellitus: Mother, Father(V18.0, Z83.3) Status:Active Relationship Condition Age at Onset Recorded Date/T laney mother Diabetes mellitus Unknown Kidney disorder Unknown father Diabetes mellitus Unknown Malignant neoplasm Unknown Malignant neoplasm of colon Unknown grandmother Malignant neoplasm Unknown Summary Purpose Advance Directives No Advanced Directives Records Found Advance Directive Response Recorded Date/ Time Living Will No September 10 8:43pm Power of Other Sports Coach Or Instructor No September 10, 2021 8:43pm Advance Directive Response Recorded Date/ Time Name of Medical Power of Other Sports Coach Or Instructor Allie Allen January 10, 2024 8:10pm Living Will Yes January 10, 2024 8:10pm Power of Other Sports Coach Or Instructor Yes January 09 8:10pm Advance Directive Response Recorded Date/ Time Name of Medical Power of Other Sports Coach Or Instructor susannahh porte r January 11, 2024 4:55am Living Will Yes January 11, 2024 4:55am Power of Other Sports Coach Or Instructor Yes January 10 4:55am Advance Directive Response Recorded Date/ Time Name of Medical Power of Other Sports Coach Or Instructor richierish porte r January 11, 2024 4:55am Living Will No January 18, 2024 6:38pm Power of Other Sports Coach Or Instructor No January 17 6:38pm Advance Directive Response Recorded Date/ Time Name of Medical Power of Other Sports Coach Or Instructor richierish porte r January 11, 2024 4:55am Name of Medical Power of Other Sports Coach Or Instructor susannahh porte r January 19, 2024 2:39am Living Will Yes January 19, 2024 2:39am Power of Other Sports Coach Or Instructor Yes January 18 2:39am Advance Directive Response Recorded Date/ Time Living Will Yes January 19, 2024 2:39am Do you have a Healthcare Power of Other Sports Coach Or Instructor? Yes January 19, 2024 2:39am Chief Complaint and Reason for Visit Chief Complaint EORDER FOR LAB AND X RAY Chief Complaint EORDER FOR LAB AND X RAY INTUSSUSCEPTION Reason for Visit Ileocolic intussusce ption Chief Complaint EORDER FOR LAB AND X RAY INTUSSUSCEPTION ILEOCECAL INTUSSUSCEPTION ILEOCECAL INTUSSUSCEPTION ILEOCECAL INTUSSUSCEPTION ILEOCECAL INTUSSUSCEPTION Reason for Visit Ileocolic intussusce ption Chief Complaint EORDER FOR LAB AND X RAY INTUSSUSCEPTION ILEOCECAL INTUSSUSCEPTION ILEOCECAL INTUSSUSCEPTION ILEOCECAL INTUSSUSCEPTION ILEOCECAL INTUSSUSCEPTION ILEOCECAL INTUSSUSCEPTION ILEOCECAL INTUSSUSCEPTION Reason for Visit Ileocolic intussusce ption [id number] Chief Complaint EORDER FOR LAB AND X RAY INTUSSUSCEPTION ILEOCECAL INTUSSUSCEPTION ILEOCECAL INTUSSUSCEPTION ILEOCECAL INTUSSUSCEPTION ILEOCECAL INTUSSUSCEPTION ILEOCECAL INTUSSUSCEPTION ILEOCECAL INTUSSUSCEPTION E-ORDER INFECTION INTRA ABD ABSCESS S/P RIGHY ERNIE Reason for Visit Ileocolic intussusce [facility]Har[facility] [id number] Abscess, intra-abdominal, postoperative Sepsis without acute organ dysfunction Superior mesenteric vein thrombosis Chief Complaint EORDER FOR LAB AND X RAY INTUSSUSCEPTION ILEOCECAL INTUSSUSCEPTION ILEOCECAL INTUSSUSCEPTION ILEOCECAL INTUSSUSCEPTION ILEOCECAL INTUSSUSCEPTION ILEOCECAL INTUSSUSCEPTION ILEOCECAL INTUSSUSCEPTION E-ORDER INFECTION INTRA ABD ABSCESS S/P RIGHY ERNIE INTRA ABD ABSCESS S/P RIGHY ERNIE INTRA ABD ABSCESS S/P RIGHY ERNIE INTRA ABD ABSCESS S/P RIGHY ERNIE INTRA ABD ABSCESS S/P RIGHY ERNIE INTRA ABD ABSCESS S/P RIGHY ERNIE Reason for Visit Ileocolic intussusce ptHar[facility] [id number] Abscess, intra-abdominal, postoperative Ileocolic intussusception Ileus [id number] S/P exploratory laparotomy Superior mesenteric vein thrombosis Sepsis without acute organ dysfunction Chief Complaint EORDER FOR LAB AND X RAY INTUSSUSCEPTION ILEOCECAL INTUSSUSCEPTION ILEOCECAL INTUSSUSCEPTION ILEOCECAL INTUSSUSCEPTION ILEOCECAL INTUSSUSCEPTION ILEOCECAL INTUSSUSCEPTION ILEOCECAL INTUSSUSCEPTION E-ORDER INFECTION INTRA ABD ABSCESS S/P RIGHY ERNIE INTRA ABD ABSCESS S/P RIGHY ERNIE INTRA ABD ABSCESS S/P RIGHY ERNIE INTRA ABD ABSCESS S/P RIGHY ERNIE INTRA ABD ABSCESS S/P RIGHY ERNIE INTRA ABD ABSCESS S/P RIGHY ERNIE INTRA ABD ABSCESS S/P RIGHY ERNIE INTRA ABD ABSCESS S/P RIGHY ERNIE INTRA ABD ABSCESS S/P RIGHY ERNIE INTRA ABD ABSCESS S/P RIGHY ERNIE INTRA ABD ABSCESS S/P RIGHY ERNIE INTRA ABD ABSCESS S/P RIGHY ERNIE INTRA ABD ABSCESS S/P RIGHY ERNIE Reason for Visit [id number] Ileocolic intussusception Abscess, intra-abdominal, postoperative Ileus [id number] S/P exploratory laparotomy 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 Sepsis without acute organ dysfunction Chief Complaint EORDER FOR LAB AND X RAY INTUSSUSCEPTION ILEOCECAL INTUSSUSCEPTION ILEOCECAL INTUSSUSCEPTION ILEOCECAL INTUSSUSCEPTION ILEOCECAL INTUSSUSCEPTION ILEOCECAL INTUSSUSCEPTION ILEOCECAL INTUSSUSCEPTION E-ORDER INFECTION INTRA ABD ABSCESS S/P RIGHY ERNIE INTRA ABD ABSCESS S/P RIGHY ERNIE INTRA ABD ABSCESS S/P RIGHY ERNIE INTRA ABD ABSCESS S/P RIGHY ERNIE INTRA ABD ABSCESS S/P RIGHY ERNIE INTRA ABD ABSCESS S/P RIGHY ERNIE INTRA ABD ABSCESS S/P RIGHY ERNIE INTRA ABD ABSCESS S/P RIGHY ERNIE INTRA ABD ABSCESS S/P RIGHY ERNIE INTRA ABD ABSCESS S/P RIGHY ERNIE INTRA ABD ABSCESS S/P RIGHY ERNIE INTRA ABD ABSCESS S/P RIGHY ERNIE INTRA ABD ABSCESS S/P RIGHY ERNIE HOME HEALTH wound Reason for Visit [id number] Ileocolic intussusception Abscess, intra-abdominal, postoperative Ileus [id number] S/P exploratory laparotomy 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 Sepsis without acute organ dysfunction Anterior abdomen avulsion BMI 26.0-26.9,adult History of abdominal abscess History of open reduction and internal fixation (ORIF) procedure [id number] Nonhealing surgical wound S/P exploratory laparotomy Status post right hemicolectomy Chief Complaint Admit Date 7 MO - NO LABS September 28, 2024 1 :25pm MIDLINE BACK PAIN October 24, 2024 8:49am STOMACH PAIN, OVERALL NOT FEELING WELL J anuary 2024 2:23pm BLOATING ABD PAIN December 04, 2024 1 2:00pm CHRONIC ABD PAIN December 07, 2024 2:49pm Issues since bowel resection December 102024 9:38am NAUSEA January 07, 2025 8:4 4am HIDA scan follow up January 12, 2025 8:2 3am Reason for Visit Admit Date Superior mesenteric vein thrombosis Dece mber 2023 1:25pm Dizziness November 16, 2024 2 :23pm Indigestion November 16, 2024 2 :23pm Anxiety about health November 16, 2024 2:23pm Chronic abdominal pain November 16 2:23pm Midline back pain November 16, 2024 2 :23pm Loose stools December 10, 2024 9:38am Loose stools January 12, 2025 8:2 3am Chief Complaint Admit Date BLOATING ABD PAIN December 04, 2024 1 2:00pm CHRONIC ABD PAIN December 07, 2024 2:49pm Issues since bowel resection December 102024 9:38am NAUSEA January 07, 2025 8:4 4am HIDA scan follow up January 12, 2025 8:2 3am Medication questions February 24, 2025 3: 03pm 3 wk fu March 17, 2025 3:16p m Reason for Visit Admit Date Loose stools December 10, 2024 9:38am Loose stools January 12, 2025 8:2 3am Nausea February 24, 2025 3:0 3pm Chief Complaint Admit Date Medication questions February 24, 2025 3: 03pm 3 wk fu March 17, 2025 3:16p m 4 M FU May 17, 2025 8:56 am Reason for Visit Admit Date Nausea February 24, 2025 3:0 3pm Gastro-esophageal reflux dis ease with esophagitis, without bleeding March 17, 2025 3:16pm Nausea March 17, 2025 3:16p m Reason for Referral Specialty Diagnoses / Procedures Referred By Balbir t Referred To Contact Kevin Corona III, MD [address] [place] [address] Referral ID Status Reason Start Date Expiration Date Visits Re quested Visits Authorized [id number] Closed 1 1 Specialty Diagnoses / Procedures Referred By Contac t Referred To Contact Diagnoses Open wound of anterior abdominal wall, sequela S/P exploratory laparotomy Intraperitoneal abscess (HCC) S/P partial resection of colon Procedures CONSULT TO WOUND CENTER (AG) Diana Foster MD [address] [place] [address] Referral ID Status Reason Start Date Expiration Date Visits Requested Visits Authorized [id number] Ref Not Required PCP Requested Referral 02/21/2024 05/21/2024 1 1 Specialty Diagnoses / Procedures Referred By Contac t Referred To Contact CT IMAGING Diagnoses Infection in abdomen (HCC) Procedures CT ABD/PEL W IVCON CT ABD & PELVIS W/CONTRAST Kevin Corona III, MD [address] [place] [address] Ct Imaging [place] [id number] Referral ID Status Reason Start Date Expiration Date V isits Requested Visits Authorized [id number] Closed Auto-Generate d Referral 07/13/2024 09/10/2024 2 2 Referral ID Status Reason Start Date Expiration Date Visits Requested Visits Authorized [id number] Authorized Auto-Generat ed Referral 07/13/2024 09/10/2024 2 2 Additional Source Comments (unrecognized sect ion and content) No Status Records FoundNo Status Records FoundNo Status Records FoundNo Status Records FoundNo Status Records FoundNo Status Records FoundNo Status Records FoundNo Status Records Found INFORMATION SOURCE (unrecogn ized section and content) DATE CREATED AUTHOR 05/17/2022 [facility] DATE CREATED AUTHOR AUTHOR'S ORGANIZ ATION 05/18/2022 [facility] DATE CREATED AUTHOR AUTHOR'S ORGANIZ ATION 01/20/2023 [facility] DATE CREATED AUTHOR AUTHOR'S ORGANIZ ATION 03/27/2024 [facility] DATE CREATED AUTHOR AUTHOR'S ORGANIZ ATION 10/12/2024 [facility] DATE CREATED AUTHOR AUTHOR'S ORGANIZ ATION 03/05/2025 [facility] DATE CREATED AUTHOR AUTHOR'S ORGANIZ ATION 05/16/2025 [facility] DATE CREATED AUTHOR AUTHOR'S ORGANIZ ATION 05/20/2025 [facility] Care Teams (unrecognized sec tion and content) Team Status: Active Member Role Status Dates No Primary Care Physician Family Provider Active Dr. Marcellus Oakes MD Primary Care Provider Activ e Team Status: Inactive Member Role Status Dates Dr. Marcellus Oakes MD Primary Care Provider, Attending Provider, Referring Provider Active Team Status: Active Member Role Status Dates Dr. Marcellus Oakes MD Primary Care Provider, Attending Provider, Referring Provider Active Team Status: Active Member Role Status Dates Dr. Marcellus Oakes MD Primary Care Provider Activ e Dr. Kevin York DO Emergency Provider Active Dr. Ricco García MD Admit Provider, Attending Provi victor hugo Active Team Status: Active Member Role Status Dates Dr. Marcellus Oakes MD Primary Care Provider Activ e Dr. Kevin York DO Emergency Provider Active Dr. Ricco García MD Admit Provider, A ttending Provider, Other Provider Active Team Status: Active Member Role Status Dates Dr. Marcellus Oakes MD Primary Care Provider Activ e Dr. Kevin York DO Emergency Provider Active Dr. Ricco García MD Admit Provider, Other Provider Active Ni RAMON PAJeannie Attending Provider Active Team Status: Inactive Member Role Status Dates Dr. Marcellus Oakes MD Primary Care Provider Activ e Dr. Kevin York DO Emergency Provider Active Dr. Ricco García MD Admit Provider, Attending Provi victor hugo Active Team Status: Active Member Role Status Dates No Primary Care Physician Family Provider Active No Primary Care Physician Primary Care Provider Active Team Status: Active Member Role Status Dates Dr. Nader Miller MD Emergency Provider Active No Primary Care Physician Primary Care Provider Active Dr. Veronica Garner MD Attending Provider Active Team Status: Active Member Role Status Dates Dr. Marcellus Oakes MD Primary Care Provider Activ e Dr. Ricco García MD Attending Provider, Referring P rodelbert Active Team Status: Active Member Role Status Dates Dr. Nader Miller MD Emergency Provider Active No Primary Care Physician Primary Care Provider Active Dr. Veronica Garner MD Admit Provider, Attending Pro vider Active Team Status: Active Member Role Status Dates Dr. Nader Miller MD Emergency Provider Active No Primary Care Physician Primary Care Provider Active Dr. Veronica Garner MD Admit Provider, Other Provide r Active Dr. Ricco García MD Attending Provider Active Team Status: Active Member Role Status Dates Dr. Nader Miller MD Emergency Provider Active No Primary Care Physician Primary Care Provider Active Dr. Veronica Garner MD Other Provider Active Dr. Ricco García MD Admit Provider, Other Provider Active Ni RAMON PA-C Attending Provider Active Team Status: Inactive Member Role Status Dates Dr. Marcellus Oakes MD Primary Care Provider Activ e Dr. Ricco García MD Attending Provider, Referring P georgi Active Team Status: Active Member Role Status Dates Dr. Nader Miller MD Emergency Provider Active No Primary Care Physician Primary Care Provider Active Dr. Veronica Garner MD Other Provider Active Dr. Ricco García MD Admit Provider, Attending Provi victor hugo Active Team Status: Active Member Role Status Dates Dr. Nader Miller MD Emergency Provider Active No Primary Care Physician Primary Care Provider Active Dr. Veronica Garner MD Other Provider Active Dr. Ricco García MD Admit Provider, A ttending Provider, Other Provider Active Ni RAMON PA-C Active Team Status: Active Member Role Status Dates Dr. Nader Miller MD Emergency Provider Active No Primary Care Physician Primary Care Provider Active Dr. Veronica Garner MD Attending Provider, Other Pro vider Active Dr. Ricco García MD Admit Provider, Other Provider Active Team Status: Active Member Role Status Dates Dr. Nader Miller MD Emergency Provider Active No Primary Care Physician Primary Care Provider Active Dr. Veronica Garner MD Other Provider Active Dr. Ricco García MD Admit Provider, Other Provider Active Dr. Db Barbosa MD Attending Provider Active Team Status: Active Member Role Status Dates Dr. Nader Miller MD Emergency Provider Active No Primary Care Physician Primary Care Provider Active Dr. Veronica Garner MD Other Provider Active Dr. Ricco García MD Admit Provider, A ttending Provider, Other Provider Active Team Status: Active Member Role Status Dates Dr. Nader Miller MD Emergency Provider Active No Primary Care Physician Primary Care Provider Active Dr. Veronica Garner MD Other Provider Active Dr. Ricco García MD Admit Provider, A ttending Provider, Other Provider Active Dr. Emily Aquino MD Other Provider Active Team Status: Inactive Member Role Status Dates Dr. Nader Miller MD Emergency Provider Active No Primary Care Physician Primary Care Provider Active Dr. Veronica Garner MD Other Provider Active Dr. Ricco García MD Admit Provider, Attending Provi victor hugo Active Dr. Emily Aquino MD Other Provider Active Travel Accommodations Rater Relationship Specialty Start Date End Date Kevin Corona III, MD [address] [address] Consulting Infectious Diseases 02/07/24 Travel Accommodations Rater Relationship Specialty Start Date End Date Kevin Corona III, MD [address] [address] Consulting Infectious Diseases 02/07/24 Travel Accommodations Rater Relationship Specialty Start Date End Date Kevin Corona III, MD [address] [address] Consulting Infectious Diseases 02/07/24 Diana Foster MD [address] [id number] General Surgery 02/20/24 Travel Accommodations Rater Relationship Specialty Start Date End Date Kevin Corona III, MD [address] [address] Consulting Infectious Diseases 02/07/24 Diana Foster MD [address] [id number] General Surgery 02/20/24 Travel Accommodations Rater Relationship Specialty Start Date End Date Kevin Corona III, MD [address] [address] Consulting Infectious Diseases 02/07/24 Diana Foster MD [address] [id number] General Surgery 02/20/24 Team Status: Active Member Role Status Dates Dr. Sancho Oakes MD Primary Care Provider Acti ve Dr. Kevin York , Emergency Provider Active Dr. Ricco García MD Admit Provider, A ttending Provider, Other Provider Active Team Status: Active Member Role Status Dates Dr. Sancho Oakes MD Primary Care Provider Acti ve Dr. Kevin York , Emergency Provider Active Dr. Ricco García MD Admit Provider, Other Provider Active Ni RAMON PA-C Attending Provider Active Team Status: Inactive Member Role Status Dates Dr. Sancho Oakes MD Primary Care Provider, Attending Provider, Referring Provider Active Team Status: Inactive Member Role Status Dates Dr. Sancho Oakes MD Primary Care Provider Acti ve Dr. Kevin York DO Emergency Provider Active Dr. Ricco García MD Admit Provider, Attending Provi victor hugo Active Team Status: Inactive Member Role Status Dates Dr. Sancho Oakes MD Primary Care Provider Acti ve Dr. Ricco García MD Attending Provider, Referring P rovider Active Team Status: Inactive Member Role Status Dates No Primary Care Physician Primary Care Provider Active Dr. Ricco García MD Attending Provider, Referring P rovider Active Team Status: Active Member Role Status Dates No Primary Care Physician Primary Care Provider Active Dr. Amadeo Call MD Attending Provider Active Diana Foster MD Referring Provider Active Team Status: Inactive Member Role Status Dates No Primary Care Physician Primary Care Provider Active Dr. Amadeo Call MD Attending Provider Active Diana Foster MD Referring Provider Active Travel Accommodations Rater Relationship Specialty Start Date End Date Kevin Corona III, MD [address] [facility] [address] [place], [place] [id number] Consulting Infectious Diseases 02/07/24 Diana Foster MD [address] [id number] General Surgery 02/20/24 Travel Accommodations Rater Relationship Specialty Start Date End Date Kevin Corona III, MD [address] [id number] Consulting Infectious Diseases 02/07/24 Diana Foster MD [address] [id number] General Surgery 02/20/24 Travel Accommodations Rater Relationship Specialty Start Date End Date Kevin Corona III, MD [address] [id number] Consulting Infectious Diseases 02/07/24 Diana Foster MD [address] [id number] General Surgery 02/20/24 Travel Accommodations Rater Relationship Specialty Start Date End Date Kevin Corona III, MD [address] [id number] Consulting Infectious Diseases 02/07/24 Diana Foster MD [address] [id number] General Surgery 02/20/24 Travel Accommodations Rater Relationship Specialty Start Date End Date Kevin Corona III, MD [address] [id number] Consulting Infectious Diseases 02/07/24 Diana Foster MD [address] [id number] General Surgery 02/20/24 Travel Accommodations Rater Relationship Specialty Start Date End Date Kevin Corona III, MD [address] [facility] [address] [place] [address] Consulting Infectious Diseases 02/07/24 Diana Foster MD [address] [id number] General Surgery 02/20/24 Travel Accommodations Rater Relationship Specialty Start Date End Date Kevin Corona III, MD [address] [place] [address] Consulting Infectious Diseases 02/07/24 Diana Foster MD [address] [id number] General Surgery 02/20/24 Travel Accommodations Rater Relationship Specialty Start Date End Date Kevin Corona III, MD [address] [facility] [address] [place] [address] Consulting Infectious Diseases 02/07/24 Diana Foster MD [address] [id number] General Surgery 02/20/24 Travel Accommodations Rater Relationship Specialty Start Date End Date Kevin Corona III, MD [address] [facility] [address] [place] [address] Consulting Infectious Diseases 02/07/24 Diana Foster MD [address] [address] General Surgery 02/20/24 Travel Accommodations Rater Relationship Specialty Start Date End Date Kevin Corona III, MD [address] [address] Consulting Infectious Diseases 02/07/24 Diana Foster MD [address] [id number] General Surgery 02/20/24 Travel Accommodations Rater Relationship Specialty Start Date End Date Kevin Corona III, MD [address] [address] Consulting Infectious Diseases 02/07/24 Diana Foster MD [address] [id number] General Surgery 02/20/24 Travel Accommodations Rater Relationship Specialty Start Date End Date Kevin Corona III, MD [address] [address] Consulting Infectious Diseases 02/07/24 Diana Foster MD [address] [id number] General Surgery 02/20/24 Team Status: Active Member Role Status Dates Dr. Geronimo Lemus MD Primary Care Provider Active Team Status: Inactive Member Role Status Dates Dr. Jericho Romero MD Attending Provider Active Start: September 28, 2024 End: September 28, 2024 Dr. Geronimo Lemus MD Primary Care Provider Active Start: September 28, 2024 End: September 28, 2024 Dr. Geronimo Lemus MD Referring Provider Active Start: September 28, 2024 End: September 28, 2024 Team Status: Inactive Member Role Status Dates Dr. Geronimo Lemus MD Primary Care Provider Active Start: October 24, 2024 End: October 24, 2024 Dr. Geronimo Lemus MD Attending Provider Active Start: October 24, 2024 End: October 24, 2024 Dr. Geronimo Lemus MD Referring Provider Active Start: October 24, 2024 End: October 24, 2024 Team Status: Inactive Member Role Status Dates Dr. Geronimo Lemus MD Primary Care Provider Active Start: November 10, 2024 End: November 10, 2024 Dr. Alin Issa MD Attending Provider Active Start: November 10, 2024 End: November 10, 2024 Dr. Alin Issa MD Referring Provider Active Start: November 10, 2024 End: November 10, 2024 Team Status: Inactive Member Role Status Dates Dr. Geronimo Lemus MD Primary Care Provider Active Start: November 16, 2024 End: November 16, 2024 Dr. Geronimo Lemus MD Attending Provider Active Start: November 16, 2024 End: November 16, 2024 Dr. Geronimo Lemus MD Referring Provider Active Start: November 16, 2024 End: November 16, 2024 Team Status: Inactive Member Role Status Dates Dr. Geronimo Lemus MD Primary Care Provider Active Start: November 23, 2024 End: November 23, 2024 Dr. Geronimo Lemus MD Attending Provider Active Start: November 23, 2024 End: November 23, 2024 Dr. Geronimo Lemus MD Referring Provider Active Start: November 23, 2024 End: November 23, 2024 Team Status: Inactive Member Role Status Dates Dr. Geronimo Lemus MD Primary Care Provider Active Start: December 04, 2024 End: December 04, 2024 Dr. Geronimo Lemus MD Attending Provider Active Start: December 04, 2024 End: December 04, 2024 Dr. Geronimo Lemus MD Referring Provider Active Start: December 04, 2024 End: December 04, 2024 Team Status: Inactive Member Role Status Dates Dr. Geronimo Lemus MD Primary Care Provider Active Start: December 07, 2024 End: December 07, 2024 Dr. Geronimo eLmus MD Attending Provider Active Start: December 07, 2024 End: December 07, 2024 Dr. Geronimo Lemus MD Referring Provider Active Start: December 07, 2024 End: December 07, 2024 Team Status: Inactive Member Role Status Dates Dr. Geronimo Lemus MD Primary Care Provider Active Start: December 10, 2024 End: December 10, 2024 Dr. Geronimo Lemus MD Referring Provider Active Start: December 10, 2024 End: December 10, 2024 Dr. Lee Robles DO Attending Provider Active Start: December 10, 2024 End: December 10, 2024 Team Status: Inactive Member Role Status Dates Dr. Geronimo Lemus MD Primary Care Provider Active Start: December 10, 2024 End: December 10, 2024 Dr. Lee Robles DO Attending Provider Active Start: December 10, 2024 End: December 10, 2024 Dr. Lee Robles DO Referring Provider Active Start: December 10, 2024 End: December 10, 2024 Team Status: Inactive Member Role Status Dates Dr. Geronimo Lemus MD Primary Care Provider Active Start: January 07, 2025 End: January 07, 2025 Dr. Lee Robles DO Attending Provider Active Start: January 07, 2025 End: January 07, 2025 Dr. Lee Robles DO Referring Provider Active Start: January 07, 2025 End: January 07, 2025 Team Status: Inactive Member Role Status Dates Dr. Geronimo Lemus MD Primary Care Provider Active Start: January 12, 2025 End: January 12, 2025 Dr. Geronimo Lemus MD Referring Provider Active Start: January 12, 2025 End: January 12, 2025 Dr. Lee Robles DO Attending Provider Active Start: January 12, 2025 End: January 12, 2025 Travel Accommodations Rater Relationship Specialty Start Date End Date Geronimo Lemus MD [address] [place] [address] PCP - General Internal Medicine 02/09/25 Travel Accommodations Rater Relationship Specialty Start Date End Date Geronimo Lemus MD [address] [place] [address] PCP - General Internal Medicine 02/09/25 Travel Accommodations Rater Relationship Specialty Start Date End Date Geronimo Lemus MD [address] [place] [facility] [address] PCP - General Internal Medicine 02/09/25 Team Status: Inactive Member Role Status Dates Dr. Geronimo Lemus MD Primary Care Provider Active Start: February 24, 2025 End: February 24, 2025 Dr. Geronimo Lemus MD Referring Provider Active Start: February 24, 2025 End: February 24, 2025 TRISTEN Han Attending Provider Active Start: February 24, 2025 End: February 24, 2025 Team Status: Inactive Member Role Status Dates Dr. Geronimo Lemus MD Primary Care Provider Active Start: March 17, 2025 End: March 17, 2025 Dr. Geronimo Lemus MD Referring Provider Active Start: March 17, 2025 End: March 17, 2025 TRISTEN Han Attending Provider Active Start: March 17, 2025 End: March 17, 2025 Team Status: Active Member Role/Relationship Status Dates Dr. Geronimo Lemus MD Primary Care Provider Active Team Status: Inactive Member Role/Relationship Status Dates Dr. Geronimo Lemus MD Primary Care Provider Active Start: February 24, 2025 End: February 24, 2025 Dr. Geronimo Lemus MD Referring Provider Active Start: February 24, 2025 End: February 24, 2025 TRISTEN Han Attending Provider Active Start: February 24, 2025 End: February 24, 2025 Team Status: Inactive Member Role/Relationship Status Dates Dr. Geronimo Lemus MD Primary Care Provider Active Start: March 17, 2025 End: March 17, 2025 Dr. Geronimo Lemus MD Referring Provider Active Start: March 17, 2025 End: March 17, 2025 TRISTEN Han Attending Provider Active Start: March 17, 2025 End: March 17, 2025 Team Status: Inactive Member Role/Relationship Status Dates Dr. Geronimo Lemus MD Primary Care Provider Active Start: May 17, 2025 End: May 17, 2025 Dr. Geronimo Lemus MD Referring Provider Active Start: May 17, 2025 End: May 17, 2025 Dr. Lee Robles DO Attending Provider Active Start: May 17, 2025 End: May 17, 2025 Goals (unrecognized section and content) Goals may be documented in a n alternate sectionGoals may be documented in an alternate sectionGoals may be documented in an alternate sectionGoals may be documented in an alternate sectionGoals may be documented in an alternate section Source Comments (unrecognize d section and content) In the event this informatio n is protected by the Federal Confidentiality of Alcohol and Drug Abuse Patient Records regulations: The Federal rules restrict any use of the information to criminally investigate or prosecute any alcohol or drug abuse patient.[facility] the event this information is protected by the Federal Confidentiality of Alcohol and Drug Abuse Patient Records regulations: The Federal rules restrict any use of the information to criminally investigate or prosecute any alcohol or drug abuse patient.[facility] the event this information is protected by the Federal Confidentiality of Alcohol and Drug Abuse Patient Records regulations: The Federal rules restrict any use of the information to criminally investigate or prosecute any alcohol or drug abuse patient.[facility] the event this information is protected by the Federal Confidentiality of Alcohol and Drug Abuse Patient Records regulations: The Federal rules restrict any use of the information to criminally investigate or prosecute any alcohol or drug abuse patient.[facility]In the event this information is protected by the Federal Confidentiality of Alcohol and Drug Abuse Patient Records regulations: The Federal rules restrict any use of the information to criminally investigate or prosecute any alcohol or drug abuse patient.[facility]In the event this information is protected by the Federal Confidentiality of Alcohol and Drug Abuse Patient Records regulations: The Federal rules restrict any use of the information to criminally investigate or prosecute any alcohol or drug abuse patient.[facility] the event this information is protected by the Federal Confidentiality of Alcohol and Drug Abuse Patient Records regulations: The Federal rules restrict any use of the information to criminally investigate or prosecute any alcohol or drug abuse patient.[facility]In the event this information is protected by the Federal Confidentiality of Alcohol and Drug Abuse Patient Records regulations: The Federal rules restrict any use of the information to criminally investigate or prosecute any alcohol or drug abuse patient.[facility]In the event this information is protected by the Federal Confidentiality of Alcohol and Drug Abuse Patient Records regulations: The Federal rules restrict any use of the information to criminally investigate or prosecute any alcohol or drug abuse patient.[facility]In the event this information is protected by the Federal Confidentiality of Alcohol and Drug Abuse Patient Records regulations: The Federal rules restrict any use of the information to criminally investigate or prosecute any alcohol or drug abuse patient.[facility] HospitalIn the event this information is protected by the Federal Confidentiality of Alcohol and Drug Abuse Patient Records regulations: The Federal rules restrict any use of the information to criminally investigate or prosecute any alcohol or drug abuse patient.[facility]In the event this information is protected by the Federal Confidentiality of Alcohol and Drug Abuse Patient Records regulations: The Federal rules restrict any use of the information to criminally investigate or prosecute any alcohol or drug abuse patient.[facility]In the event this information is protected by the Federal Confidentiality of Alcohol and Drug Abuse Patient Records regulations: The Federal rules restrict any use of the information to criminally investigate or prosecute any alcohol or drug abuse patient.[facility]In the event this information is protected by the Federal Confidentiality of Alcohol and Drug Abuse Patient Records regulations: The Federal rules restrict any use of the information to criminally investigate or prosecute any alcohol or drug abuse patient.[facility]In the event this information is protected by the Federal Confidentiality of Alcohol and Drug Abuse Patient Records regulations: The Federal rules restrict any use of the information to criminally investigate or prosecute any alcohol or drug abuse patient.[facility] HospitalIn the event this information is protected by the Federal Confidentiality of Alcohol and Drug Abuse Patient Records regulations: The Federal rules restrict any use of the information to criminally investigate or prosecute any alcohol or drug abuse patient.[facility] HospitalIn the event this information is protected by the Federal Confidentiality of Alcohol and Drug Abuse Patient Records regulations: The Federal rules restrict any use of the information to criminally investigate or prosecute any alcohol or drug abuse patient.[facility]In the event this information is protected by the Federal Confidentiality of Alcohol and Drug Abuse Patient Records regulations: The Federal rules restrict any use of the information to criminally investigate or prosecute any alcohol or drug abuse patient.[facility] HospitalIn the event this information is protected by the Federal Confidentiality of Alcohol and Drug Abuse Patient Records regulations: The Federal rules restrict any use of the information to criminally investigate or prosecute any alcohol or drug abuse patient.[facility] HospitalIn the event this information is protected by the Federal Confidentiality of Alcohol and Drug Abuse Patient Records regulations: The Federal rules restrict any use of the information to criminally investigate or prosecute any alcohol or drug abuse patient.[facility] HospitalIn the event this information is protected by the Federal Confidentiality of Alcohol and Drug Abuse Patient Records regulations: The Federal rules restrict any use of the information to criminally investigate or prosecute any alcohol or drug abuse patient.[facility]In the event this information is protected by the Federal Confidentiality of Alcohol and Drug Abuse Patient Records regulations: The Federal rules restrict any use of the information to criminally investigate or prosecute any alcohol or drug abuse patient.[facility]In the event this information is protected by the Federal Confidentiality of Alcohol and Drug Abuse Patient Records regulations: The Federal rules restrict any use of the information to criminally investigate or prosecute any alcohol or drug abuse patient.[facility] HospitalIn the event this information is protected by the Federal Confidentiality of Alcohol and Drug Abuse Patient Records regulations: The Federal rules restrict any use of the information to criminally investigate or prosecute any alcohol or drug abuse patient.[facility]In the event this information is protected by the Federal Confidentiality of Alcohol and Drug Abuse Patient Records regulations: The Federal rules restrict any use of the information to criminally investigate or prosecute any alcohol or drug abuse patient.[facility]In the event this information is protected by the Federal Confidentiality of Alcohol and Drug Abuse Patient Records regulations: The Federal rules restrict any use of the information to criminally investigate or prosecute any alcohol or drug abuse patient.[facility] HospitalIn the event this information is protected by the Federal Confidentiality of Alcohol and Drug Abuse Patient Records regulations: The Federal rules restrict any use of the information to criminally investigate or prosecute any alcohol or drug abuse patient.[facility] HospitalIn the event this information is protected by the Federal Confidentiality of Alcohol and Drug Abuse Patient Records regulations: The Federal rules restrict any use of the information to criminally investigate or prosecute any alcohol or drug abuse patient.[facility]In the event this information is protected by the Federal Confidentiality of Alcohol and Drug Abuse Patient Records regulations: The Federal rules restrict any use of the information to criminally investigate or prosecute any alcohol or drug abuse patient.[facility] HospitalIn the event this information is protected by the Federal Confidentiality of Alcohol and Drug Abuse Patient Records regulations: The Federal rules restrict any use of the information to criminally investigate or prosecute any alcohol or drug abuse patient.[facility] Reason for Visit (unrecogniz ed section and content) Reason Comments CoPat Start Reason Comments Medication Authorization Reason Comments Director Of Transportation - Other Reason Comments Results Reason Comments Orders Reason Comments CoPat Management Reason Comments Symptoms Reason Comments Infection Follow Up Reason Comments Medication Problem Reason Onset Date Comments Refill Request 05/24/2024 Reason Comments Patient Question Reason Comments Patient Update Reason Comments Radiology CT Specialty Diagnoses / Procedures Referred By Contac t Referred To Contact CT IMAGING Diagnoses Infection in abdomen (HCC) Procedures CT ABD/PEL W IVCON CT ABD & PELVIS W/CONTRAST Kevin Corona III, MD [address] [facility] [address] [place] [address] [place] [address] Referral ID Status Reason Start Date Expiration Date V isits Requested Visits Authorized [id number] Closed Auto-Generate d Referral 07/13/2024 09/10/2024 2 2 Reason Comments Infection Follow Up Reason Comments Ingrown Toenail L great toe nail ing rown x1 yr - pt states that he has been cautiously trimming the nail so it does not become ingrown - pt has a "line" across the nail and states that all of the nails on that foot and a couple on the R foot had the lines in them - no trauma Reason Comments Procedure 2 wk f/u L Gr toe . Pt C/o tenderness Reason Comments Post-op 1 wk f/u PO phenol m atrix L gr toe. No concerns FOR RECORDS PERTAINING TO PATIENTS WHO ARE [...] BE BASED ON THE PRIMARY CLINICAL RECORDS. [employer] provides no warranty or guarantee of the accuracy or completeness of information in this document.
== END | disposition home or self-care (01) ==
LOC: RAD 17:15
PROVIDERS: PCP Internal Medicine; Referring Provider Internal Medicine Gastroenterology; Visit Provider Internal Medicine Gastroenterology
DX: R10.9 Unspecified abdominal pain (principal)
CPT/HCPCS: 74018

== ENCOUNTER → 2025-06-04 | Outpatient (CLI) | payer BC, SELFPAY ==
--- NOTE | 2025-06-04 09:00 | RAD_ITS ---
EXAM: Small-bowel series CLINICAL HISTORY: Abdominal pain. Prior infection bowel surgery. COMPARISON: Abdomen study 05/20/2025. TECHNIQUE: Small-bowel series FINDINGS: Reinforced Concrete Inspector images again demonstrate surgical sutures of the right abdomen. The bowel-gas pattern is unremarkable in appearance. No mass or mass effect is seen. Oral administration enteric contrast was then performed, with sequential images obtained. Satisfactory passage of contrast from the stomach into the duodenum, small bowel and right colon is seen, with contrast reaching the right colon by the 60 minute images. Normal mucosal appearance of jejunum and ileum is seen. No mass effect is seen, and no tethering is identified item images obtained. RAD/Small Bowel Series Only IMPRESSION: Negative small bowel series. Reading Location: [place] [address]
== END | disposition home or self-care (01) ==
LOC: RAD 09:00
PROVIDERS: PCP Internal Medicine; Referring Provider Internal Medicine Gastroenterology; Visit Provider Internal Medicine Gastroenterology
DX: R10.9 Unspecified abdominal pain (principal)
CPT/HCPCS: 74250

== ENCOUNTER 2025-07-05 07:38 | Day surgery (SDC) | payer BC, SELFPAY ==
[2025-07-05] VITALS (8 sets, daily range): BP systolic 91–130; BP diastolic 68–91; PULSE 67–81; RESP 16; TEMP 36.4–36.6; O2SAT 97–99; BMI 28.3
[2025-07-05] MEDS: Lactated Ringers 1,000 ML 15 ML IV (08:11)
--- NOTE | 2025-07-05 08:30 | COLBX_PTH ---
PATIENT: TERRIE ALLEN LOC: EN U#:[id number] AGE/SX: 45/M ROOM: RE07/05/[address]: Dr. Lee Robles DO : 1980 BED: DIS: 07/05/2025 SPEC #: [id number] RECD: 07/05/25 13:33 STATUS: LISSETT MARIA DE JESUS #: [id number] DAVE: 07/05/25 08:[address]: Lee Robles DEPT: SURGICAL PATHOLOGY RECD BY: Luis A Rahman ENTERED: 07/05/25 15:26 SP TYPE: COLON BX OTHR DR: Dr. Chelle Lemus MD Tissues: A - Duodenum, NOS B - Gastric mucous membrane C - Esophagus, NOS D - Esophagus, NOS E - COLON BIOPSY F - COLON BIOPSY Procedures: Surgery Specimen Level IV HEADER OPERATION: Colonoscopy, EGD, biopsy PRE-OP DIAGNOSIS: Abdominal pain, gastro-esophageal reflux disease with esophagitis without bleeding, nausea, loose stools TISSUE SUBMITTED: A- Duodenum biopsy, B- Gastric body biopsy, C- Distal esophagus biopsy,D- Random esophagus biopsy, E- Anastomosis biopsy, F- Random colon biopsy MICROSCOPIC DIAGNOSIS A. Duodenum, biopsy: - Jackie gland hyperplasia. - Negative for increased intraepithelial lymphocytes. Note: Eosinophils are not increased. B. Gastric body, biopsy: - Oxyntic mucosa with features of reactive gastropathy - see note. - Negative for Helicobacter-like organisms (H&E). Note: Eosinophils are not increased. C. Distal esophagus, biopsy: - Squamous mucosa with reactive changes and 5 eosinophils per high power field. - Columnar mucosa negative for goblet cell metaplasia. D. Esophagus, random biopsy: - Squamous mucosa with reactive changes. - Up to 18 eosinophils per high power field. E. Anastomosis, site not designated, biopsy: - Small intestinal mucosa with focal acute inflammation. - Slight villous blunting with mildly increased eosinophils in the lamina propria (focally > 60 eosinophils per high power field) - see note. Note: Prominent eosinophils in the lamina propria raise consideration of eosinophilic enteritis. The differential diagnosis includes drug reaction, allergy, parasite infection, and paraneoplastic syndrome. Clinical correlation is necessary. F. Colon, random, biopsy: - No specific pathologic change. - The histologic features of microscopic colitis are not demonstrated. Note: Eosinophils are not increased. MICROSCOPIC DESCRIPTION Slides are reviewed. GROSS DESCRIPTION A. Received in fixative is one container labeled with the patient's name and designated Duodenum biopsy. The specimen consists of three irregular fragments of light lion soft tissue that measure 0.2 to 0.4 cm. The specimen is totally submitted in one cassette. B. Received in fixative is one container labeled with the patient's name and designated Gastric body biopsy. The specimen consists of three irregular fragments of light lion soft tissue that measure 0.1 to 0.8 cm. The specimen is totally submitted in one cassette. C. Received in fixative is one container labeled with the patient's name and designated Distal esophagus biopsy. The specimen consists of two irregular fragments of light lion soft tissue, each measuring 0.7 cm. The specimen is totally submitted in one cassette. D. Received in fixative is one container labeled with the patient's name and designated Random esophagus biopsy. The specimen consists of two irregular fragments of light lion soft tissue, each measuring 0.6 cm. The specimen is totally submitted in one cassette. E. Received in fixative is one container labeled with the patient's name and designated Anastomosis biopsy. The specimen consists of multiple irregular fragments of light lion soft tissue that in aggregate measure 1.5 x 0.7 x 0.1 cm. The specimen is totally submitted in one cassette. F. Received in fixative is one container labeled with the patient's name and designated Random colonic biopsy. The specimen consists of three irregular fragments of light lion soft tissue that measure 0.3 to 0.5 cm. The specimen is totally submitted in one cassette. [place] 07/05/2025 CPT:93255w2
--- NOTE | 2025-07-05 08:34 | PRE.ANES_ITS ---
ASA Classification* ASA Classification ASA Classification: 1 Assessment & Plan Anesthesia* Anesthesia Assessment Anesthesia Assessment: Discussed sedation and/or anesthesia options, risks, benefits, and alternatives with patient/parents/legal guardian/POA. Questions invited. The patient/parents/legal guardian/POA seems to understand and agrees to proceed with anesthesia plan. Reviewed the physical assessment, medical history, allergy history and patient home medications list prior to surgery/procedure/anesthetic and documented any changes. Performed airway and anesthesia risk assessments. Anesthesia Type Anesthesia Type: MAC History Source History Obtained from:: Patient and Chart Anesthesia Focused Assessment* Temperature: 97.8 F Pulse Rate: 81 Blood Pressure: 130/91 Respiratory Rate: 16 Pulse Ox: 99 Oxygen Delivery Method: Room Air Airway Assessment Mouth opens: >3 cm Mallampati Score: II Teeth Condition: Intact Neck Range of motion (ROM): Full ROM Labs Anesthesia Preop lab: CBC WBC 7.2 K/mm3 (4.4-11.0) 11/16/24 15:48 11/16/24 RBC 5.18 M/mm3 (4.6-6.2) 11/16/24 15:48 11/16/24 Hgb 14.8 g/dL (13.0-16.5) 11/16/24 15:48 11/16/24 Hct 45.0 % (40-54) 11/16/24 15:48 11/16/24 Plt Count 265 K/mm3 (150-450) 11/16/24 15:48 11/16/24 CHEMISTRY Potassium 4.2 mmol/L (3.5-5.1) 11/16/24 15:48 11/16/24 Sodium 140 mmol/L (136-145) 11/16/24 15:48 11/16/24 Magnesium 2.2 mg/dL (1.6-2.6) 01/30/24 06:38 01/30/24 Phosphorus 3.5 mg/dL (2.5-4.9) 01/30/24 06:38 01/30/24 BUN 18 mg/dL (7-18) 11/16/24 15:48 11/16/24 Creatinine 1.10 mg/dL (0.70-1.30) 11/16/24 15:48 11/16/24 Glucose 105 mg/dL (74-106) 11/16/24 15:48 11/16/24 POC Glucose 79 mg/dL (74-106) 01/22/24 16:49 01/22/24 TSH 0.503 uIU/mL (0.300-4.200) 05/17/25 10:11 04/28 11/21 COAG PT 16.2 SECONDS (11.7-14.9) H 01/18/24 20:00 12/27 01/18 Pre-Assessment Diagnosis/Proposed Procedure Planned Operative Procedure(s): Colonoscopy,EGD Anesthesia History 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 When Was Last Pacemaker Check QUESTION #4 FULL TEXT: You/Your Family Experience fever (hyperthermia) with Anesthesia Last Oral Intake Last Oral intake: Last Oral Intake NPO since 04:30 07/05/25 08:02 Meds taken in AM with sips of No 07/05/25 08:02 water? 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 Female No 07/01/25 13:40 HX of Motion Sickness Yes 07/01/25 13:40 HX of N/V After Surgery Yes 07/01/25 13:40 Non-Smoker Yes 07/01/25 13:40 Duration of Surgery greater No 07/01/25 13:40 than 60 minutes Number of Risk Factors 3 07/01/25 13:40 PONV Score Moderate Risk 07/01/25 13:40 Height & Weight Height & Weight: Anesthesia: Height & Weight Height 6 ft 3 in 07/05/25 08:02 Weight: 103 kg 07/05/25 08:02 Body Mass Index (BMI) 28.3 07/05/25 08:02 Respiratory Assessment Respiratory Assessment - field service poultry technician: Respiratory Tract Infection Hx - field service poultry technician Hx Respiratory Tract Infection No 07/01/25 13:40 STOP Sleep Apnea STOP Sleep Apnea - field service poultry technician: STOP Sleep Apnea - field service poultry technician Hx Hypertension No 07/01/25 13:40 Hx Sleep Apnea No 07/01/25 13:40 CPAP BIPAP Do you snore loudly (louder No 07/01/25 13:40 than talking or can be heard Do you often feel tired/ No 07/01/25 13:40 fatigued/ sleepy during daytime? Has anyone observed you stop No 07/01/25 13:40 breathing during sleep? STOP Results Negative 07/01/25 13:40 QUESTION #5 FULL TEXT : Do you snore loudly (louder than talking or can be heard through closed doors)? 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 Specify any problems Hx of Preganancy in last 3 N/A 07/01/25 13:40 Months Nurse Filling Out Transfusion [email or web address] 07/01/25 13:40 & Questions: Date: 07/01/25 07/01/25 13:40 Time: 13:42 07/01/25 13:40 Patient unable to answer at this time (ie. confused, unrespo /Reproduction History /Reproductive History - field service poultry technician: /Reproductive Hx- field service poultry technician Hx Now No 07/01/25 13:40 Gestational Age (in weeks): EDC: Hx Hx Para Hx Section SAB No 07/01/25 13:40 Active Medications Active Medications: Current Medications Generic Name Dose Route Start Last Admin Trade Name Freq PRN Reason Stop Dose Admin Lactated Ringer's 1,000 mls @ 15 mls/hr 07/05/25 07:45 07/05/25 08:11 IV 15 mls/hr .Q48H ELIZABETH Administration PFSH Medical History Heartburn Non-smoker Difficulty swallowing History of IBS Gastric reflux Anterior abdomen avulsion History of abdominal abscess Nonhealing surgical wound Superior mesenteric vein thrombosis Sepsis without acute organ dysfunction Collar bone fracture COVID-19 Home Medications ?Medication ?Instructions ?Recorded ?Last Taken ?Type pantoprazole 40 mg tablet,delayed 40 mg PO QDAY #90 ta bs 05/12/25 Unknown Rx release ondansetron HCl 4 mg tablet 4 mg PO Q8H #30 tabs 06/10 Unknown Rx bisacodyl 5 mg tablet 20 mg (4 x 5 mg) PO ONCE #4 tabs 06/29/25 Unknown Rx polyethylene glycol 3350 17 238 g PO ONCE #238 grams 0 06/29/25 Unknown Rx gram/dose oral powder meloxicam 7.5 mg tablet 7.5 mg PO QDAY PRN pain 02/19 Unknown History Allergy/AdvReac Type Severity Reaction Status Date / Time No Known Allergies Allergy Verified 07/05/25 08:01 Family History Mother Diabetes Kidney disease had mass, removed portion of it. Father Diabetes Cancer prostate Colon cancer 75 Grandmother Cancer stomach Surgical History History of surgical procedure History of ankle surgery History of open reduction and internal fixation (ORIF) procedure Status post right hemicolectomy S/P exploratory laparotomy H/O hernia repair Social History adopted: No household members: spouse number of children: 1 current occupational status: employed current occupation: [employer]. pets and animals: Yes pets and animals: dog(s) sexually active: Yes Smoking Status: Never smoker Electronic Cigarette Use: not used alcohol intake: never substance use type: does not use diet: lactose free caffeine: Yes (1-2) Type: carbonated beverages frequency: does not exercise seatbelt use: always do you feel safe at home: Yes Review of Systems (Anesthesia) ROS Narrative System reviewed and no additional complaints, except as documented.
--- NOTE | 2025-07-05 08:35 | PCM.HP.STD ---
HPI - General General Date of Admission: 07/05/25 Date of Service: 07/05/25 Chief Complaint: Abdominal pain HPI Narrative TERRIE RAGLAND, is a 45 M who presents for EGD and colonoscopy regarding abdominal pain. abd/pelvis CT 6.7.24 Status post right hemicolectomy with postsurgical changes and improvement of the previously seen thick-walled fluid collection in the right lower quadrant. No new abnormality is seen EGD with Dr Hahn 8.8.24 No gross lesions in the duodenal bulb, in the first portion of the duodenum and in the second portion of the duodenum. No specimens collected. Gastritis. Biopsied. Z-line irregular, 43 cm from the incisors. Biopsied. Texture changed, abnormal (rule out Heredia's esophagus) mucosa in the esophagus. Biopsied. The examination was otherwise normal. BGI established in Nov 2024 with hx of intussusception (december 2023) s/p emergent right hemicolectomy. Post op pt developed sepsis.. Transferred to [place] for LUZ drain for an abscess. Since then he has been having general malaise, decreased appetite, abd pain and nausea. GET 2.7.25 normal 32 minutes abd/pelvis 2.10.25 The gallbladder is contracted and contains questionable gallstones. Mild right hydrocele. HIDA 3.13.25 normal Last OV 3.18.25 Pt having increased nausea and continued right pain. taking Zofran daily. Discontinuing sucralfate. Eating a bland diet. Start 25 g of fiber daily, scopolamine patch and prednisone 20 mg daily for one month. OV 4.30.25 Pt continues to have daily nausea worse in the morning when he wakes up. Worse with exertion. It is not typically related to oral intake. Compazine has mad him too drowsy and is unable to take it when he works. He feels the prednisone has helped with some pain and giving him energy. Started on Voquezna. OV 5.21.25 OV 7.21.25 pt reports ongoing symptoms. Reports that Voquezna has not made a significant difference in his symptoms and is more expensive for him than the pantoprazole was. Pt reports that the prednisone helps a small amount, but is also not making a significant difference in his symptoms. Reports that when he has HB he takes 3 TUMs and a famotidine. REPLACED BY [facility] Medical History Heartburn Non-smoker Difficulty swallowing History of IBS Gastric reflux Anterior abdomen avulsion History of abdominal abscess Nonhealing surgical wound Superior mesenteric vein thrombosis Sepsis without acute organ dysfunction Collar bone fracture COVID-19 Home Medications ?Medication ?Instructions ?Recorded ?Last Taken ?Type pantoprazole 40 mg tablet,delayed 40 mg PO QDAY #90 tabs 05/12/25 Unknown Rx release ondansetron HCl 4 mg tablet 4 mg PO Q8H #30 tabs 06/10/25 Unknown Rx bisacodyl 5 mg tablet 20 mg (4 x 5 mg) PO ONCE #4 tabs 06/29/25 Unknown Rx polyethylene glycol 3350 17 238 g PO ONCE #238 grams 06/29/25 Unknown Rx gram/dose oral powder meloxicam 7.5 mg tablet 7.5 mg PO QDAY PRN pain 07/01/25 Unknown History Allergy/AdvReac Type Severity Reaction Status Date / Time No Known Allergies Allergy Verified 07/05/25 08:01 Family History Mother Diabetes Kidney disease had mass, removed portion of it. Father Diabetes Cancer prostate Colon cancer 75 Grandmother Cancer stomach Surgical History History of surgical procedure History of ankle surgery History of open reduction and internal fixation (ORIF) procedure Status post right hemicolectomy S/P exploratory laparotomy H/O hernia repair Social History adopted: No household members: spouse number of children: 1 current occupational status: employed current occupation: [employer]. pets and animals: Yes pets and animals: dog(s) sexually active: Yes Smoking Status: Never smoker Electronic Cigarette Use: not used alcohol intake: never substance use type: does not use diet: lactose free caffeine: Yes (1-2) Type: carbonated beverages frequency: does not exercise seatbelt use: always do you feel safe at home: Yes ROS Constitutional Constitutional: Denies fatigue, fever(s), poor appetite, weight gain or weight loss Gastrointestinal Gastrointestinal: Denies belching, bloating, change in bowel habits, change in stool character, chewing difficulty, coffee ground emesis, constipation, cramping, diarrhea, dyspepsia, dysphagia, early satiety, excessive flatus, fecal incontinence, heartburn, hematemesis, hematochezia, hemorrhoids, loose stools, melena, nausea, odynophagia, rectal bleeding, tenesmus, vomiting or weight changes Vital Signs Vital Signs Vital Signs: 07/05/25 08:02 07/05/25 08:02 Temperature 97.8 F Temperature Source Temporal Pulse Rate 81 Respiratory Rate 16 Respiratory Pattern Normal Blood Pressure 130/91 H Blood Pressure Mean 104 Blood Pressure Source Monitor Blood Pressure Position Semi-Fowlers Blood Pressure Location Right Arm Pulse Ox 99 Oxygen Delivery Method Room Air Weight Weight: 227 lb 1.218 oz Body Mass Index (BMI) 28.3 Physical Exam Const alert, oriented x3, no apparent distress and healthy appearing General Appearance: cooperative GI normal to inspection, nondistended, normoactive bowel sounds, soft to palpation, non-tender and non-distended Percussion: normal to percussion Rectal Exam: deferred Assessment & Plan Assessment/Plan (1) Abdominal pain: (2) Gastro-esophageal reflux disease with esophagitis, without bleeding: (3) Nausea: (4) Loose stools: PLAN: Assessment and Plan Assessment and Plan (1) Gastro-esophageal reflux disease with esophagitis, without bleeding: Status: Acute (2) Loose stools: Status: Acute Comment: Patient recommended increase of fiber. Recommending 25 g of daily fiber. I have discussed the intake of dietary fiber as well as supplementation. Patient provides a bottle of a supplement he has already obtained which contains psyllium husk. This seems to be a reasonable option to begin supplementation, but I have counseled Mr. Ragland that he may also do so exclusively without some of the additional supplements that are contained in the 1 provided. A handout instructing patients on how to count their daily fiber was provided. (3) Nausea: Status: Acute Plan: This is a 44 yo male pt here today for f/u regarding his ongoing nausea. Pt has had nausea since he underwent emergent left hemicolectomy in December 2023. He initially thought it was related to antibiotics he was on and the recovery however it has persisted. He underwent EGD in May 2024 which showed gastritis that was H. pylori negative. He was started on PPI therapy after undergoing an upper endoscopy. He is still having some breakthrough symptoms. He was started on Voquenza as an outpatient and he does not feel like it has been helping his symptoms and regarding his morning nausea and bloating. His diet has been very strict and not including any things that may upset his stomach. He was discovered to have a wheat allergy and has worked to completely eliminate it in his diet. This has not provided relief. HIDA, GES and CT with normal findings. He has been on Prednisone 20 mg for about 6 weeks now with some relief in his pain and increased energy. The persistence of his symptoms warrants further evaluation. He underwent a HIDA scan and which had showed normal ejection fraction is 60% and normal emptying into the small bowel. He the persistence of these symptoms warrants further consideration and discussion with your doctor. Here are some potential causes and recommendations: We went over the possible etiologies of his post-surgical nausea and bloating which are common after abdominal surgery and generally temporary. The normal CT scan is reassuring as it rules out some potential complications like a significant bowel obstruction.? Potential causes Adhesions: Scar tissue that forms in the abdomen after surgery can sometimes cause organs to stick together, leading to symptoms like pain, bloating, and nausea,?These are often not detectable on a CT scan unless they are causing a severe obstruction. Gastroparesis: Delayed gastric emptying due to problems with stomach muscle function. He had a normal gastric emptying study. Small Intestinal Bacterial Overgrowth (SIBO): An overgrowth of bacteria in the small intestine, potentially linked to altered gut motility after surgery. Symptoms include bloating, gas, and nausea. Bile Acid Malabsorption (BAM): If you've had gallbladder surgery, disruptions to bile flow can lead to BAM, causing diarrhea, gas, and bloating Plan: He will undergo capsule endoscopy after he undergoes an agile capsule. Pending that he may need repeat upper and lower endoscopy and a CT angiography to evaluate the vasculature of his abdomen pelvis. Orders:
--- NOTE | 2025-07-05 09:14 | OP.EGD_ITS ---
Patient Name: Hesham Ragland Procedure Date: 07/05/2025 8:43 AM Date of : 1980 Age: 45 Procedure: Upper GI endoscopy Indications: Epigastric abdominal pain, Lower abdominal pain, Upper abdominal pain, Dysphagia Providers: Lee Robles DO Referring MD: Chelle Lemus Md Medicines: Monitored Anesthesia Care Patient Profile: This is a 45 year old male. Refer to note in patient chart for documentation of history and physical. Patient has symptoms of chronic dysphagia, dysphagia with solids, chronic dyspepsia, chronic heartburn, chronic nausea and chronic regurgitation. Complications: No immediate complications. Procedure: Pre-Anesthesia Assessment: - Prior to the procedure, a History and Physical was performed, and patient medications and allergies were reviewed. The patient is competent. The risks and benefits of the procedure and the sedation options and risks were discussed with the patient. All questions were answered and informed consent was obtained. Patient identification and proposed procedure were verified by the physician in the pre-procedure area. Mental Status Examination: alert and oriented. Airway Examination: normal oropharyngeal airway and neck mobility. Respiratory Examination: clear to auscultation. CV Examination: normal. Prophylactic Antibiotics: The patient does not require prophylactic antibiotics. Prior Anticoagulants: The patient has taken no anticoagulant or antiplatelet agents. ASA Grade Assessment: II - A patient with mild systemic disease. After reviewing the risks and benefits, the patient was deemed in satisfactory condition to undergo the procedure. The anesthesia plan was to use monitored anesthesia care (MAC). Immediately prior to administration of medications, the patient was re-assessed for adequacy to receive sedatives. The heart rate, respiratory rate, oxygen saturations, blood pressure, adequacy of pulmonary ventilation, and response to care were monitored throughout the procedure. The physical status of the patient was re-assessed after the procedure. After obtaining informed consent, the endoscope was passed under direct vision. Throughout the procedure, the patient's blood pressure, pulse, and oxygen saturations were monitored continuously. The pediatric colonoscope was introduced through the mouth, and advanced to the third part of the duodenum. Small bowel enteroscopy was deemed necessary. The upper GI endoscopy was accomplished without difficulty. The patient tolerated the procedure well. Scope In: 8:49:10 AM Scope Out: 8:54:31 AM Total Procedure Duration Time 0 hours 5 minutes 21 seconds Findings: Mucosal changes including ringed esophagus, feline appearance and small-caliber esophagus were found in the entire esophagus. Biopsies were obtained from the proximal and distal esophagus with cold forceps for histology of suspected eosinophilic esophagitis. Verification of patient identification for the specimen was done. Estimated blood loss was minimal. The Z-line was irregular. Biopsies were taken with a cold forceps for histology. Verification of patient identification for the specimen was done. Estimated blood loss was minimal. A small hiatal hernia was present. Patchy mildly erythematous mucosa without bleeding was found in the gastric body. Biopsies were taken with a cold forceps for histology. Biopsies were taken with a cold forceps for Helicobacter pylori testing. Verification of patient identification for the specimen was done. Estimated blood loss was minimal. No gross lesions were noted in the entire examined duodenum. Biopsies were taken with a cold forceps for histology. Verification of patient identification for the specimen was done. Estimated blood loss was minimal. Impression: - Esophageal mucosal changes consistent with eosinophilic esophagitis. - Z-line irregular. Biopsied. - Small hiatal hernia. - Erythematous mucosa in the gastric body. Biopsied. - No gross lesions in the entire examined duodenum. Biopsied. - Biopsies were taken with a cold forceps for evaluation of eosinophilic esophagitis. Recommendation: - Discharge patient to home. - Resume previous diet. - Continue present medications. - Await pathology results. Procedure Code(s): --- Professional --- 08188, Small intestinal endoscopy, enteroscopy beyond second portion of duodenum, not including ileum; with biopsy, single or multiple CPT copyright 2021 [employer]. All rights reserved. The codes documented in this report are preliminary and upon infant lead teacher review may be revised to meet current compliance requirements. Lee Robles DO 07/05/2025 9:14:03 AM This report has been signed electronically. Number of Addenda: 0 Note Initiated On: 07/05/2025 8:43 AM
--- NOTE | 2025-07-05 09:14 | OP.PROVAT_ITS ---
07/05/2025 Chelle Lemus Md Re : Upper GI endoscopy procedure for Hesham Freedr Allan This procedure was performed on Saturday, July 05, 2025. My impressions and recommendations are as follows: Impressions : - Esophageal mucosal changes consistent with eosinophilic esophagitis. - Z-line irregular. Biopsied. - Small hiatal hernia. - Erythematous mucosa in the gastric body. Biopsied. - No gross lesions in the entire examined duodenum. Biopsied. - Biopsies were taken with a cold forceps for evaluation of eosinophilic esophagitis. Recommendations : - Discharge patient to home. - Resume previous diet. - Continue present medications. - Await pathology results. My findings are described in the full procedure note, which is enclosed. If I can be of further assistance, please feel free to contact me at . Sincerely, Lee Robles, 07/05/2025 9:14:03 AM This report has been signed electronically.
--- NOTE | 2025-07-05 09:19 | OP.COLON_ITS ---
Patient Name: Hesham Ragland Procedure Date: 07/05/2025 8:54 AM Date of : 1980 Age: 45 Procedure: Colonoscopy Indications: Lower abdominal pain, Upper abdominal pain, Clinically significant diarrhea of unexplained origin Providers: Lee Robles DO Referring MD: Chelle Lemus Md Medicines: Monitored Anesthesia Care Patient Profile: This is a 45 year old male. Refer to note in patient chart for documentation of history and physical. Patient has symptoms of chronic dysphagia, dysphagia with solids, chronic dyspepsia, chronic heartburn, chronic nausea and chronic regurgitation. Last Colonoscopy: 3 years ago. Complications: No immediate complications. Procedure: Pre-Anesthesia Assessment: - Prior to the procedure, a History and Physical was performed, and patient medications and allergies were reviewed. The patient is competent. The risks and benefits of the procedure and the sedation options and risks were discussed with the patient. All questions were answered and informed consent was obtained. Patient identification and proposed procedure were verified by the physician in the pre-procedure area. Mental Status Examination: alert and oriented. Airway Examination: normal oropharyngeal airway and neck mobility. Respiratory Examination: clear to auscultation. CV Examination: normal. Prophylactic Antibiotics: The patient does not require prophylactic antibiotics. Prior Anticoagulants: The patient has taken no anticoagulant or antiplatelet agents. ASA Grade Assessment: II - A patient with mild systemic disease. After reviewing the risks and benefits, the patient was deemed in satisfactory condition to undergo the procedure. The anesthesia plan was to use monitored anesthesia care (MAC). Immediately prior to administration of medications, the patient was re-assessed for adequacy to receive sedatives. The heart rate, respiratory rate, oxygen saturations, blood pressure, adequacy of pulmonary ventilation, and response to care were monitored throughout the procedure. The physical status of the patient was re-assessed after the procedure. After I obtained informed consent, the scope was passed under direct vision. Throughout the procedure, the patient's blood pressure, pulse, and oxygen saturations were monitored continuously. The pediatric colonoscope was introduced through the anus and advanced to the ileocolonic anastomosis. The colonoscopy was performed without difficulty. The patient tolerated the procedure well. The quality of the bowel preparation was adequate. The terminal ileum, ileocecal valve, appendiceal orifice, and rectum were photographed. Scope In: 8:56:37 AM Scope Out: 9:08:51 AM Total Procedure Duration Time 0 hours 12 minutes 14 seconds Findings: The perianal and digital rectal examinations were normal. Patchy moderate mucosal changes characterized by congestion (edema), erosions and erythema were found at the anastomosis. Biopsies were taken with a cold forceps for histology. Verification of patient identification for the specimen was done. Estimated blood loss was minimal. An area of mildly congested mucosa was found in the recto-sigmoid colon, in the sigmoid colon and at the splenic flexure. Biopsies for histology were taken with a cold forceps from the left transverse colon, descending colon, sigmoid colon and rectosigmoid colon for evaluation of microscopic colitis. Verification of patient identification for the specimen was done. Estimated blood loss was minimal. A few small-mouthed diverticula were found in the sigmoid colon. Impression: - Patchy moderate mucosal changes were found at the colonic anastomosis secondary to colitis. Biopsied. - Congested mucosa in the recto-sigmoid colon, in the sigmoid colon and at the splenic flexure. Biopsied. - Diverticulosis in the sigmoid colon. Recommendation: - Discharge patient to home. - Resume previous diet. - Continue present medications. - Await pathology results. - Repeat colonoscopy in 5 years for surveillance. Procedure Code(s): --- Professional --- 50894, Colonoscopy, flexible; with biopsy, single or multiple CPT copyright 2021 [employer]. All rights reserved. The codes documented in this report are preliminary and upon sound editor review may be revised to meet current compliance requirements. Lee Robles DO 07/05/2025 9:18:37 AM This report has been signed electronically. Number of Addenda: 0 Note Initiated On: 07/05/2025 8:54 AM
--- NOTE | 2025-07-05 09:19 | OP.PROVAT_ITS ---
07/05/2025 Chelle Lemus Md Re : Colonoscopy procedure for Hesham Freedr Allan This procedure was performed on Saturday, July 05, 2025. My impressions and recommendations are as follows: Impressions : - Patchy moderate mucosal changes were found at the colonic anastomosis secondary to colitis. Biopsied. - Congested mucosa in the recto-sigmoid colon, in the sigmoid colon and at the splenic flexure. Biopsied. - Diverticulosis in the sigmoid colon. Recommendations : - Discharge patient to home. - Resume previous diet. - Continue present medications. - Await pathology results. - Repeat colonoscopy in 5 years for surveillance. My findings are described in the full procedure note, which is enclosed. If I can be of further assistance, please feel free to contact me at . Sincerely, Lee Robles, 07/05/2025 9:18:37 AM This report has been signed electronically.
--- NOTE | 2025-07-05 09:24 | PCM.POST.ANE ---
Anesthesia: Postop Eval I Current Vital Signs Temperature: 97.6 F Pulse Rate: 67 Blood Pressure: 102/68 Respiratory Rate: 16 Pulse Ox: 97 Oxygen Delivery Method: Room Air Assessment Airway patent: Yes Spontaneous unlabored respirations: Yes Mental status: Asleep nausea: No Vomiting: No Anesthesia Complication: No Fluid Hydration Crystalloid volume administer (ml): 800 Total IV fluid infused: 800 Progress Note Anesthesia document: Postop Eval 1 completed: Yes
--- NOTE | 2025-07-05 09:40 | PCM.POSTANE2 ---
Anesthesia Postop Eval I Sum Postop Eval Completion status Anesthesia document: Postop Eval 1 completed: Yes Anesthesia Postop Eval I Summary Anesthesia Postop Eval I Summary: Anesthesia Postop Eval I: Assessment Summary Airway patent Yes 07/05/25 09:25 [email or web address] Spontaneous unlabored Yes 07/05/25 09:25 [email or web address] respirations Mental status Asleep 07/05/25 09:25 [email or web address] nausea No 07/05/25 09:25 [email or web address] Vomiting No 07/05/25 09:25 [email or web address] Anesthesia Postop Eval I: Fluid Summary Crystalloid volume administer 800 07/05/25 09:25 [email or web address] (ml) Colloids volume administered ( ml) Blood Product volume administered (ml) Total IV fluid infused 800 07/05/25 09:25 [email or web address] Anesthesia Postop Eval I: Summary Notes Anesthesia Complication No 07/05/25 09:25 [email or web address] Anesthesia Complication Comment: Post-operative progress note Anesthesia: Postop Eval II Evaluation Mental status: Awake and Calm Pain Level: 1 nausea: No Vomiting: No Complications Anesthesia Complication: No
== END 2025-07-05 10:07 | disposition home or self-care (01) ==
LOC: EN 07:45 → AC 07:46
PROVIDERS: PCP Internal Medicine; Referring Provider Internal Medicine; Visit Provider Internal Medicine Gastroenterology
PROC: 0DJD8ZZ Inspection of Lower Intestinal Tract, Via Natural or Artificial Opening Endoscopic (ICD-10-PCS; CPT 45378; principal; 2025-07-05 08:25)
DX: K52.9 Noninfective gastroenteritis and colitis, unspecified (principal); K57.30 Diverticulosis of large intestine without perforation or abscess without bleeding; K21.00 Gastro-esophageal reflux disease with esophagitis, without bleeding; K31.9 Disease of stomach and duodenum, unspecified; Z98.0 Intestinal bypass and anastomosis status
CPT/HCPCS: 44361; 45380; 88305; J2405